=== PATIENT | female | born 1965 | race Caucasian/White ===

== ENCOUNTER 2020-10-07 19:29 | Observation (INO) | payer BC, MEDICARE, SELFPAY ==
[2020-10-07] VITALS (9 sets, daily range): BP systolic 110–131; BP diastolic 51–77; PULSE 96–111; RESP 16–21; TEMP 36.7; O2SAT 95–98; BMI 36.0
--- NOTE | 2020-10-07 19:37 | PC.NURSE ---
called [facility] for medical records from their ER on 10-06-2020 and 10-07-2020. awaiting for fax at this time.
--- NOTE | 2020-10-07 19:48 | XR_ITS ---
PROCEDURE: XR CHEST 2V CLINICAL HISTORY: SOB Shortness of breath COMPARISON: CR XR CHEST 2V from 01/18/2020 FINDINGS: The cardiomediastinal silhouette and pulmonary vascularity are within normal limits. The lungs are clear without infiltrates, suspicious nodules, or pleural effusions. Bone plate is present over lower cervical spine IMPRESSION: No acute findings. Dictated by: Shyam Mix MD 10/08/2020 05:55 Shyam Mix MD in [place] 10/08/2020 05:55
--- NOTE | 2020-10-07 19:48 | ECG_ITS ---
APPROVED REPORT Exam: Resting ECG HR:106 bpm ECG Measurements Heart Rate 106 AXES ME 128 P 76 QRSd 90 QRS 63 QT 356 T 48 QTc 472 Conclusion Sinus tachycardia Otherwise normal ECG Electronically signed by : Anjum Farooq, 10/09/2020 19:59:10
[2020-10-07 19:52] LABS: Microscopic, Urine URINE MICROSCOPIC (MICROSCOPIC)
[2020-10-07 19:55] LABS: Appearance,Urine CLEAR (Clear); Bilirubin,Urine Negative (Negative); Blood, Urine TRACE-I (Negative); Color,Urine YELLOW (Yellow); Glucose,Urine (UA) TRACE (Negative); Ketones,Urine Negative (Negative); Leukocyte Esterase,Urine Negative (Negative); Nitrate,Urine Negative (Negative); PH,Urine 5.5 (5.0-8.5); Protein,Urine Negative (Negative); Specific Gravity, Urine 1.015 (1.005-1.030); Urobilinogen,Urine 0.2 EU/dl (0.2)
[2020-10-07 19:55] LABS: ABG Base Excess -5.3 mmol/L (-2.4-2.3); ABG Oxygen Saturation 99 % (90-100); ABG PCO2 24.2 mmhg (35.0-45.0); ABG PH 7.49 mmol/L (7.35-7.45); ABG PO2 138.2 mmhg (80-100); ABG TCO2 18.8 mmhg (23-27)
[2020-10-07 20:22] LABS: Basophils % 0.1 % (0.1-2.0); Eosinophils % 0.1 % (0.1-12.0); Lymphocytes # 0.7 K/mm3 (0.7-4.5); Lymphocytes % 4.9 % (10-50); Mean Corpuscular HGB Conc 32.6 g/dL (31.8-35.4); Mean Corpuscular Hemoglobin 28.3 pg (27.0-31.2); Mean Corpuscular Volume 86.9 fl (81-99); Monocytes # 0.2 K/mm3 (0.1-1.0); Monocytes % 1.3 % (1.7-9.3); Neutrophils # 13.2 K/mm3 (1.8-7.8); Neutrophils % 93.6 % (37.0-80.0); Platelet Count 364 K/mm3 (142-424); Red Blood Count 4.95 M/mm3 (4.20-5.40); Red Cell Distribution Width 13.6 % (11.5-17.5); White Blood Count 14.1 K/mm3 (4.8-10.8)
[2020-10-07 20:26] LABS: Lactic Acid 4.6 mmol/L (0.7-2.1); MANUAL DIFFERENTIAL MANUAL DIFFERENTIAL (MANUAL DIFF)
[2020-10-07 20:33] LABS: Chloride 105 mmol/L (98-107); Sodium 141 mmol/L (136-145)
[2020-10-07 20:34] LABS: Potassium 3.7 mmoL/L (3.5-5.1)
[2020-10-07 20:36] LABS: Alanine Aminotransferase 62 U/L (12-78); Albumin Level 4.9 g/dl (3.5-5.0); Albumin/Globulin Ratio 1.2 (1.1-1.8); Alkaline Phosphatase 112 U/L (38-126); Anion Gap 18.7 mEq/L (5-15); Aspartate Amino Transferase 44 U/L (14-36); Bilirubin,Total 0.6 mg/dl (0.2-1.3); Blood Urea Nitrogen 10 mg/dl (7-17); Carbon Dioxide 21 mmol/L (22.0-30.0); Creatinine Clearance Estimated 163 mL/min (50-200); Estimated Glomerular Filt Rate 105 ml/min (>60); GFR (African American) 127 ML/MIN (>60); Total Protein,Serum 8.9 g/dl (6.3-8.2)
[2020-10-07 20:37] LABS: Calcium 9.9 mg/dl (8.4-10.2); Glucose 232 mg/dl (74-100)
[2020-10-07 20:48] LABS: Coronavirus 19 IgG Antibody Negative (Negative); Coronavirus 19 IgM Antibody Negative (Negative)
[2020-10-07 20:58] LABS: Troponin I < 0.01 ng/ml (0.00-0.034)
[2020-10-07 21:06] LABS: Lymphocytes % 7 % (10-50); Monocytes % 3 % (2-9); Neutrophils % 90 % (42-76); Platelet Estimate Normal; RBC Morphology Normal; Total Cells Counted 100
[2020-10-07 21:14] LABS: NT Pro Brain Natriuretic Pep. 70.6 pg/mL (0-125)
[2020-10-07 21:28] LABS: Allen's Test Acceptable; Oxygen ROOM AIR %; Source Left Radial
[2020-10-07 21:39] LABS: Procalcitonin 0.087 ng/mL (0.0-2.0)
--- NOTE | 2020-10-07 21:54 | HMH.EDSOB ---
ED Disposition Clinical Impression: Acute exacerbation of chronic obstructive airways disease, Severe sepsis with acute organ dysfunction, Septic shock, Obesity (BMI 30-39.9) Disposition: Admitted As Inpatient Condition on Discharge: Fair Referrals: Janes Mason [Primary Care Provider] - - Critical Care Critical Care Time: No Attestation: On 10/07/20, the high probability of a clinically significant, sudden or life threatening deterioration of the following system(s) required my full and direct attention, intervention and personal management. The time I documented below is in addition to time spent performing reported procedures but includes the following listed in this critical care notation. Medical Decision Making - Medical Records Medical records reviewed: Yes: I reviewed the patient's medical records. - [place] Inquiry Pt receiving controlled substance: No Vital Signs: 10/07/20 19:30 10/07/20 20:00 10/07/20 20:30 Temperature 98.0 F Temperature Source Oral Pulse Rate [Left Radial] 108 H 110 H 111 H Respiratory Rate 21 18 17 Blood Pressure [Right Arm] 131/51 L 127/77 130/61 Blood Pressure Mean [Right Arm] 77 93 84 Blood Pressure Source [Right Arm] Automatic Cuff Automatic Cuff Automatic Cuff Blood Pressure Position [Right Arm] Sitting Supine Supine 02 Sat by Pulse Oximetry 97 98 96 Oxygen Delivery Method Room Air Room Air Room Air Oxygen Flow Rate (LPM) 10/07/20 21:00 10/07/20 21:30 10/07/20 22:00 Temperature Temperature Source Pulse Rate [Left Radial] 109 H 99 H 101 H Respiratory Rate 17 17 17 Blood Pressure [Right Arm] 120/65 118/64 126/64 Blood Pressure Mean [Right Arm] 83 82 84 Blood Pressure Source [Right Arm] Automatic Cuff Automatic Cuff Automatic Cuff Blood Pressure Position [Right Arm] Supine Supine Supine 02 Sat by Pulse Oximetry 98 98 98 Oxygen Delivery Method Room Air Room Air Room Air Oxygen Flow Rate (LPM) 10/07/20 22:30 10/07/20 23:00 10/07/20 23:30 Temperature Temperature Source Pulse Rate [Left Radial] 97 H 96 H 98 H Respiratory Rate 16 17 17 Blood Pressure [Right Arm] 110/72 110/72 130/77 Blood Pressure Mean [Right Arm] 84 84 94 Blood Pressure Source [Right Arm] Automatic Cuff Automatic Cuff Automatic Cuff Blood Pressure Position [Right Arm] Sitting Supine Supine 02 Sat by Pulse Oximetry 95 98 98 Oxygen Delivery Method Room Air Nasal Cannula Nasal Cannula Oxygen Flow Rate (LPM) 2 2 10/08/20 00:00 10/08/20 00:30 Temperature Temperature Source Pulse Rate [Left Radial] 90 91 H Respiratory Rate 16 16 Blood Pressure [Right Arm] 125/80 134/70 Blood Pressure Mean [Right Arm] 95 91 Blood Pressure Source [Right Arm] Automatic Cuff Blood Pressure Position [Right Arm] Sitting 02 Sat by Pulse Oximetry 99 99 Oxygen Delivery Method Nasal Cannula Room Air Oxygen Flow Rate (LPM) 2 - Lab Data Lab results reviewed: Yes: I reviewed the patient's lab results. Lab Results 10/07/20 00:16: Troponin I < 0.01 10/07/20 19:38: WBC 14.1 H, RBC 4.95, Hgb 14.0, Hct 43.0, MCV 86.9, MCH 28.3, MCHC 32.6, RDW 13.6, Plt Count 364, MPV 8.0, Neut % (Auto) 93.6 H, Lymph % (Auto) 4.9 L, [place] % (Auto) 1.3 L, Eos % (Auto) 0.1, Baso % (Auto) 0.1, Neut # (Auto) 13.2 H, Lymph # (Auto) 0.7, [place] # (Auto) 0.2, Eos # (Auto) 0.0, Baso # (Auto) 0.0, Total Counted 100, Neutrophils % (Manual) 90 H, Lymphocytes % (Manual) 7 L, Monocytes % (Manual) 3, Platelet Estimate Normal, RBC Morphology Normal 10/07/20 19:38: Sodium 141, Potassium 3.7, Chloride 105, Carbon Dioxide 21 L, Anion Gap 18.7 H, BUN 10, Creatinine 0.60, Estimated Creat Clear 163, Estimated GFR 105, Est GFR ( Amer) 127, Glucose 232 H, Calcium 9.9, Total Bilirubin 0.6, AST 44 H, ALT 62, Alkaline Phosphatase 112, Troponin I < 0.01, Total Protein 8.9 H, Albumin 4.9, Globulin 4.0 H, Albumin/Globulin Ratio 1.2 10/07/20 19:38: Lactate 4.6 H 10/07/20 19:38: SARS-CoV-2 IgG Ab (Rapid) Negative, SARS-CoV-2 IgM Ab (Rapid) Negative
--- NOTE | 2020-10-07 21:58 | PC.NURSE ---
calling arley at this time to check on status of medical records at this time
--- NOTE | 2020-10-07 21:59 | CT_ITS ---
PROCEDURE: CT ANGIO CHEST CLINCIAL INDICATION: shortness of air Shortness of air, COPD COMPARISON: No exams were available for comparison TECHNIQUE: IV Contrast: 70ML Isovue 370 Axial images obtained with sagittal and coronal reformats. All CT scans at the facility use one or more dose reduction, viz: automated exposure control, ma/kV adjustment per patient size (including targeted exams where dose is matched to indication, i.e. head), or iterative reconstruction technique. FINDINGS: HEART AND MEDIASTINAL STRUCTURES: No mediastinal or hilar mass or adenopathy. No evidence of aortic aneurysm, dissection, or central pulmonary embolus. Peripheral pulmonary arteries are not well opacified. The LUNGS AND PLEURAL SPACES: There is some minimal subpleural opacification noted in the right upper lobe posteriorly along the major fissure. Calcified granuloma is present in the left upper lobe. BONY STRUCTURES: No acute finding UPPER ABDOMEN: Fatty liver. Small hiatal hernia. Prior cholecystectomy. ADDITIONAL FINDINGS: Right thyroid nodule. The thyroid gland is somewhat prominent on both sides. The nodule on the right measures up to 1.6 cm and may be better evaluated with ultrasound. IMPRESSION: 1. No evidence of pulmonary embolus 2. Fatty liver. Small hiatal hernia. 3. Possible right thyroid nodule which may be better evaluated with nonemergent ultrasound Dictated by: Shyam Mix MD 10/08/2020 07:36 Shyam Mix MD in [place] 10/08/2020 07:36
[2020-10-08] VITALS (12 sets, daily range): BP systolic 113–150; BP diastolic 55–84; PULSE 67–101; RESP 16–24; TEMP 36.4–36.7; O2SAT 96–100; BMI 36.4
[2020-10-08 00:15] LABS: Reflex Lactic Add Lactic Reflex
[2020-10-08 00:49] LABS: Lactic Acid Follow Up (RFLX 1) 2.6 mmol/L (0.7-2.1)
--- NOTE | 2020-10-08 00:54 | PC.NURSE ---
speaking with Dr. Webster
[2020-10-08 01:01] LABS: Troponin I < 0.01 ng/ml (0.00-0.034)
--- NOTE | 2020-10-08 01:02 | PC.NURSE ---
patient admitted to 206
[2020-10-08 02:35] LABS: Reflex Lactic (2 hrs) Add Lactic Reflex
--- NOTE | 2020-10-08 03:07 | PC.NURSE ---
PT ARRIVED TO THE FLOOR VIA W/C FROM ED W/STAFF AT 0306.
[2020-10-08 04:28] LABS: Hemoglobin A1C 5.7 % (4.0-6.0)
--- NOTE | 2020-10-08 07:44 | PC.NURSE ---
Pt is A&Ox4. Expiratory wheezing noted t/o all lung estrada. 2L NC applied for comfort, o2 sats in upper 90% all shift. Sputum collected this shift, results pending. No edema noted. 20 in RFA remains patent and is infusing NS @ 75 ml/hr. No other acute changes or complaints at this time. WIll continue to monitor.
[2020-10-08 08:12] LABS: Basophils % 0.1 % (0.1-2.0); Eosinophils % 0.2 % (0.1-12.0); Hematocrit 36.5 % (37.0-47.0); Lymphocytes # 0.9 K/mm3 (0.7-4.5); Lymphocytes % 5.5 % (10-50); Mean Corpuscular Volume 93.8 fl (81-99); Mean Platelet Volume 8.6 fl (7.4-10.4); Monocytes # 0.6 K/mm3 (0.1-1.0); Monocytes % 3.5 % (1.7-9.3); Neutrophils # 14.2 K/mm3 (1.8-7.8); Neutrophils % 90.6 % (37.0-80.0); Platelet Count 277 K/mm3 (142-424); Red Blood Count 3.89 M/mm3 (4.20-5.40); White Blood Count 15.7 K/mm3 (4.8-10.8)
[2020-10-08 08:13] LABS: Hemoglobin 11.3 g/dL (12.2-16.2); MANUAL DIFFERENTIAL MANUAL DIFFERENTIAL (MANUAL DIFF)
[2020-10-08 08:17] LABS: Chloride 108 mmol/L (98-107); Potassium 3.9 mmoL/L (3.5-5.1); Sodium 139 mmol/L (136-145)
[2020-10-08 08:20] LABS: Anion Gap 14.9 mEq/L (5-15); Blood Urea Nitrogen 9 mg/dl (7-17); Carbon Dioxide 20 mmol/L (22.0-30.0); Creatinine Clearance Estimated 165 mL/min (50-200); Estimated Glomerular Filt Rate 105 ml/min (>60); GFR (African American) 127 ML/MIN (>60); Glucose 184 mg/dl (74-100); Magnesium 1.7 mg/dl (1.6-2.3)
[2020-10-08 08:21] LABS: Calcium 8.8 mg/dl (8.4-10.2); Lactic Acid Follow up (RFLX 2) 3.8 mmol/L (0.7-2.1)
--- NOTE | 2020-10-08 09:10 | HMH.HP ---
*Admission Date: 10/08/20 *Chief complaint: SOA *History of present illness: Ms. Barr is a 55-year-old female with a history of asthma, COPD, and hyperlipidemia. She states she normally has no issues with her asthma unless she is out in the cold. She did have an exacerbation of her COPD in 2015 where she developed bilateral pneumonia. She states on she became very short of breath and presented to the [facility] emergency room. She states she was given a prescription for prednisone and sent home. She went home and did nebulizer treatments which did not help. She presented back to the emergency room on Saturday and states they did a portable x-ray and gave her a steroid shot. She was told the x-ray was normal and she was sent home again, but still could not breathe. She ended up calling an ambulance which transported her to [facility]. Her family care physician is Janes Mason and she does have a counter roller at [facility]. She was evaluated in the emergency room and her chest x-ray showed nothing acute. She had a CTA showing nothing acute. She was started on Rocephin and Zithromax as well as IV steroids and nebulizer treatments and admitted with a COPD exacerbation. Her white count was elevated as was her lactic acid. Her blood gas showed a pH of 7.49 a PCO2 of 24.2 and a PO2 of 138 to be serology was negative for Covid antibodies. She is feeling better this morning to get short of breath with any movement. [facility] History I have reviewed the patient's past medical history: Yes Medical History: Reports:: Asthma, Chronic Obstructive Pulmonary Disease (COPD), Hyperlipidemia Denies:: Cancer, Diabetes Mellitus Type 1, Diabetes Mellitus Type 2, MRSA *Have you ever received a pneumonia vaccine?: Yes *Have you received a flu vaccine this season?: No Other Medical History: Reports: Anemia, Arthritis, Fibromyalgia, Liver Disease, Sinus Problems Other Surgeries: Yes: Hysterectomy-Total Amputation: No - *Social History Last grade of school completed: Advanced degree Smoking Status: Never smoker Alcohol Intake: current Alcohol Intake Frequency:: holidays/special occasions only Substance Use Type: marijuana Last Used Substance: days (ago), unknown *Occupational Status:: retired Household Members: spouse *Travel in the last 8 weeks: None Family Hx:: Heart Attack, Hypertension, Mental illness Review of Systems - Constitutional Denies chills, Denies fever(s) - Eyes Denies blurry vision, Denies double vision - ENT Reports nasal congestion, Denies sore throat - *Cardiovascular Reports shortness of breath, Denies chest pain, Denies leg swelling - *Respiratory Reports cough, Reports shortness of breath - *Gastrointestinal Reports nausea, Denies abdominal pain, Denies loose stools, Denies vomiting - *Genitourinary Denies difficulty urinating, Denies painful urination - *Musculoskeletal Denies joint pain - *Neurologic Reports headache(s), Reports weakness, Denies localized weakness, Denies seizure-like activity Meds Home Medications Medication Instructions Recorded Confirmed Type Albuterol Sulfate [Proair Hfa 2 puffs IH Q4HP PRN #1 inh 01/18/20 10/07/20 Rx 90mcg/puff Inh] Budesonide/Formoterol Fumarate 2 puff IN DAILY 10/07/20 10/08/20 History [Symbicort 160-4.5 Mcg Inhaler] Hydrocodone/Acetaminophen 1 tab PO TID 10/07/20 10/08/20 History [Hydrocodone-Acetamin 7.5-325] Montelukast Sodium [Singulair 10mg 10 mg PO PM 10/07/20 10/08/20 History tablet] Pregabalin [Lyrica 100mg capsule] 100 mg PO TID 10/07/20 10/08/20 History Tiotropium [place] [Spiriva 2 cap IH DAILY 10/07/20 10/08/20 History 18mcg/puff inhaler] methocarbamoL [Robaxin 750mg Tab] 750 mg PO NEEDED PRN 10/07/20 10/08/20 History Allergies Allergy/AdvReac Type Severity Reaction Status Date / Time Penicillins Allergy Mild Verified 10/08/20 04:50 Exam Vital signs and Labs for Last 24 Hours: Temp Pu
--- NOTE | 2020-10-08 12:08 | HMH.PHAVTE ---
[facility] Pharmacy VTE Monitoring - Patient Demographics Admission date: 10/07/20 Report Date: 10/08/20 Time: 12:08 Allergies/Adverse Reactions: Patient Allergies Penicillins Allergy (Mild, Verified 10/08/20 04:50) Height: 1.63 m Weight: 96.247 kg Patient Problems: Current Active Problems Acute bronchitis, unspecified (Acute) Acute exacerbation of chronic obstructive airways disease (Acute) Severe sepsis with acute organ dysfunction (Acute) Septic shock (Acute) Obesity (BMI 30-39.9) (Acute) Asthma (Chronic) - VTE Risk Labs: VTE Related Lab Results Hgb 11.3 g/dL (12.2-16.2) L D 10/08/20 08:00 Hct 36.5 % (37.0-47.0) L 10/08/20 08:00 Plt Count 277 K/mm3 (142-424) 10/08/20 08:00 BUN 9 mg/dl (7-17) 10/08/20 08:00 Creatinine 0.60 mg/dl (0.52-1.04) 10/08/20 08:00 Estimated Creat Clear 165 mL/min (50-200) 10/08/20 08:00 VTE Score: 7 VTE Risk Level: Moderate Risk - Prophylaxis VTE Prophylaxis Ordered?: Yes Types of VTE Prophylaxis: TEDS Knee High Location of Applied Device: Bilateral Lower Extremeties
--- NOTE | 2020-10-08 12:16 | HMH.PHAINT ---
MEDICATION RECONCILIATION COMPLETED ON PATIENT USING EXTERNAL FILL HISTORY FROM PHARMACY. -BEBE KOHLI, URBANOD
[2020-10-08 15:11] LABS: Lymphocytes % 5 % (10-50); Monocytes % 1 % (2-9); Neutrophils % 93 % (42-76); Platelet Estimate Normal; RBC Morphology Normal; Total Cells Counted 100
--- NOTE | 2020-10-08 18:41 | PC.NURSE ---
pt has been stable this shift. Had 1 episode of expiratory wheezing earlier today that was relieved with Solumedrol IV. Has a productive cough. Had a BM today. Tolerating a reg diet.
[2020-10-09] VITALS (10 sets, daily range): BP systolic 113–135; BP diastolic 47–68; PULSE 60–87; RESP 16–18; TEMP 36.7–36.8; O2SAT 96–99; BMI 36.9
[2020-10-09 07:44] LABS: Basophils % 0.1 % (0.1-2.0); Eosinophils % 0.1 % (0.1-12.0); Hemoglobin 10.7 g/dL (12.2-16.2); Lymphocytes # 1.5 K/mm3 (0.7-4.5); Lymphocytes % 7.8 % (10-50); Mean Corpuscular HGB Conc 29.7 g/dL (31.8-35.4); Mean Corpuscular Hemoglobin 27.1 pg (27.0-31.2); Mean Corpuscular Volume 91.1 fl (81-99); Mean Platelet Volume 7.6 fl (7.4-10.4); Monocytes % 5.1 % (1.7-9.3); Neutrophils # 16.2 K/mm3 (1.8-7.8); Platelet Count 294 K/mm3 (142-424); Red Blood Count 3.95 M/mm3 (4.20-5.40); Red Cell Distribution Width 13.5 % (11.5-17.5); White Blood Count 18.6 K/mm3 (4.8-10.8)
[2020-10-09 07:45] LABS: Chloride 112 mmol/L (98-107); Potassium 3.8 mmoL/L (3.5-5.1); Sodium 142 mmol/L (136-145)
[2020-10-09 07:48] LABS: Anion Gap 10.8 mEq/L (5-15); Blood Urea Nitrogen 10 mg/dl (7-17); Carbon Dioxide 23 mmol/L (22.0-30.0); Creatinine Clearance Estimated 168 mL/min (50-200); Estimated Glomerular Filt Rate 105 ml/min (>60); GFR (African American) 127 ML/MIN (>60)
[2020-10-09 07:49] LABS: Calcium 8.9 mg/dl (8.4-10.2); Glucose 152 mg/dl (74-100); MANUAL DIFFERENTIAL MANUAL DIFFERENTIAL (MANUAL DIFF)
[2020-10-09 10:53] LABS: Lymphocytes % 13 % (10-50); Monocytes % 4 % (2-9); Neutrophils % 77 % (42-76); Platelet Estimate Normal; RBC Morphology Normal; Total Cells Counted 100
--- NOTE | 2020-10-09 12:09 | P.PN_ITS ---
Internal Medicine - PN: Subj *Date: 10/09/20 *Time: 12:09 Interval history: Clinically she looks good. She still feels short of breath and has cough and congestion and is productive of yellow sputum. The white count is still elevated but she is receiving steroids. Exam Vital signs and Labs for Last 24 Hours: Temp Pulse Resp BP Pulse Ox 98.2 F 70 17 135/68 99 10/09/20 08:00 10/09/20 08:00 10/09/20 08:00 10/09/20 08:00 10/09/20 08:00 Laboratory Results - last 24 hr 10/08/20 08:00: Total Counted 100, Neutrophils % (Manual) 93 H, Band Neutrophils % 1.0, Lymphocytes % (Manual) 5 L, Monocytes % (Manual) 1 L, Platelet Estimate Normal, RBC Morphology Normal 10/09/20 07:00: WBC 18.6 H, RBC 3.95 L, Hgb 10.7 L, Hct 36.0 L, MCV 91.1, MCH 27.1, MCHC 29.7 L, RDW 13.5, Plt Count 294, MPV 7.6, Neut % (Auto) 87.0 H, Lymph % (Auto) 7.8 L, [place] % (Auto) 5.1, Eos % (Auto) 0.1, Baso % (Auto) 0.1, Neut # (Auto) 16.2 H, Lymph # (Auto) 1.5, [place] # (Auto) 1.0, Eos # (Auto) 0.0, Baso # (Auto) 0.0, Total Counted 100, Neutrophils % (Manual) 77 H, Band Neutrophils % 6.0, Lymphocytes % (Manual) 13, Monocytes % (Manual) 4, Platelet Estimate Normal, RBC Morphology Normal 10/09/20 07:00: Sodium 142, Potassium 3.8, Chloride 112 H, Carbon Dioxide 23, Anion Gap 10.8, BUN 10, Creatinine 0.60, Estimated Creat Clear 168, Estimated GFR 105, Est GFR ( Amer) 127, Glucose 152 H, Calcium 8.9 I & O for Last 24 hours: Intake & Output 10/07/20 10/08/20 10/09/20 10/10/20 11:59 11:59 11:59 11:59 Intake Total 3389 / 3389 480 / 480 Balance 3389 / 3389 480 / 480 Weight 212 lb 3 oz 216 lb 8 oz - Constitutional no acute distress - *Routine HEENT Exam Eye: Present: PERRL ENT: Present: mucous membranes moist - *Routine Respiratory Exam Present: decreased breath sounds, wheezes - *Routine Cardiovascular Exam Present: RRR - *Routine Abdominal Exam Present: soft. Absent: tenderness - *Routine Extremities Exam Present: edema (Trace) - *Routine Neurological Exam Present: alert, oriented X3 Assessment and Plan (1) Acute exacerbation of chronic obstructive airways disease Status: Acute Category: Medical Code(s): J44.1 - Chronic obstructive pulmonary disease with (acute) exacerbation (2) Obesity (BMI 30-39.9) Status: Acute Category: Medical Code(s): E66.9 - Obesity, unspecified (3) Septic shock Status: Acute Category: Medical Code(s): A41.9 - Sepsis, unspecified organism; R65.21 - Severe sepsis with septic shock (4) Acute bronchitis, unspecified Status: Acute Qualifiers: Bronchitis organism: unspecified organism Qualified Code(s): J20.9 - Acute bronchitis, unspecified Category: Medical Code(s): J20.9 - Acute bronchitis, unspecified (5) Asthma Status: Chronic Category: Medical Code(s): J45.909 - Unspecified asthma, uncomplicated - Assessment and plan all Dx Assessment and Plan for all problems:: Continue present regimen. Pulmonary consult ordered.
--- NOTE | 2020-10-09 18:25 | PC.NURSE ---
THIS RN RECEIVED A PHONE CALL FROM LAB INQUIRING ABOUT AN ORDER FOR A SPUTUM. THIS RN INFORMED THEM THAT THERE IS AN ORDER THAT WAS PLACED ON 11/08/2019. PER LAB, ORDER WAS NOT RECEIVED. PER ESTER IN LAB, SHE WILL PUT ORDER IN.
--- NOTE | 2020-10-09 20:32 | PC.NURSE ---
PATIENT A&O X4, LUNGS: WHEEZING HEARD, PULSES EQUAL. DURING THIS RN SHIFT PATIENT HAD 2 EPISODES OF FEELING OUT OF BREATH. THIS RN ASSESSED O2 STATS, O2 WAS 97% 2L NC. PATIENT STATED SHE THINKS IT IS TIME FOR HER STEROIDS, SHE CAN TELL. THIS RN ADMINISTERED HER SOLU-MEDROL AND PHONED RT FOR A BREATHING TREATMENT. NO OTHER CONCERNS AT THIS TIME.
[2020-10-10] VITALS (10 sets, daily range): BP systolic 134–150; BP diastolic 62–80; PULSE 60–79; RESP 16–22; TEMP 36.6–36.7; O2SAT 94–98; BMI 37.3
--- NOTE | 2020-10-10 03:46 | PC.NURSE ---
Fine crackles noted t/o bilat lungs with inspiratory wheezes to r lobe. Intermittent productive cough reported with thick, white sputum. Pt. has c/o neck pain x2 this shift; tx with prn meds. Pt. c/o one episode of soa. Pt. has not c/o n/v/d, or dizziness.
--- NOTE | 2020-10-10 08:59 | HMH.ACPN2 ---
Internal Medicine - PN: Subj *Date: 10/10/20 *Time: 08:59 Interval history: Patient states she is a little short of breath this morning. She did set up in a chair for breakfast this morning without her O2. She had a neb treatment which helped. Denies chest pain. She is eating without problems. Blood cultures are negative thus far. Sputum culture results are pending. He is on Zithromax and ceftriaxone. She is also receiving Solu-Medrol 40 IV every 8 hours. We fluids her at 75 an hour. Exam Vital signs and Labs for Last 24 Hours: Temp Pulse Resp BP Pulse Ox 98.0 F 79 20 142/67 H 95 10/10/20 08:00 10/10/20 08:00 10/10/20 08:00 10/10/20 08:00 10/10/20 08:00 Laboratory Results - last 24 hr 10/09/20 07:00: Total Counted 100, Neutrophils % (Manual) 77 H, Band Neutrophils % 6.0, Lymphocytes % (Manual) 13, Monocytes % (Manual) 4, Platelet Estimate Normal, RBC Morphology Normal I & O for Last 24 hours: Intake & Output 10/07/20 10/08/20 10/09/20 10/10/20 11:59 11:59 11:59 11:59 Intake Total 3389 / 3389 480 / 480 3956 / 3956 Balance 3389 / 3389 480 / 480 3956 / 3956 Weight 212 lb 3 oz 216 lb 8 oz 218 lb 9 oz Microbiology Reports for the Last 24 Hours: Microbiology 10/09/20 06:00 Sputum - Expectorated Sputum Gram Stain - Final 10/07/20 19:38 Blood Blood Culture - Preliminary NO GROWTH AFTER 48 HOURS 10/07/20 19:38 Blood Blood Culture - Preliminary NO GROWTH AFTER 48 HOURS - Constitutional no acute distress - *Routine Respiratory Exam Comments: Bibasilar crackles posteriorly with diminished breath sounds posteriorly - *Routine Cardiovascular Exam Present: RRR - *Routine Abdominal Exam Present: soft, normoactive bowel sounds. Absent: tenderness - *Routine Extremities Exam Present: edema (Bilateral lower legs), pulses intact. Absent: calf tenderness - *Routine Neurological Exam Present: alert, oriented X3 Assessment and Plan (1) Acute exacerbation of chronic obstructive airways disease Status: Acute Category: Medical Code(s): J44.1 - Chronic obstructive pulmonary disease with (acute) exacerbation (2) Obesity (BMI 30-39.9) Status: Acute Category: Medical Code(s): E66.9 - Obesity, unspecified (3) Septic shock Status: Acute Category: Medical Code(s): A41.9 - Sepsis, unspecified organism; R65.21 - Severe sepsis with septic shock (4) Acute bronchitis, unspecified Status: Acute Qualifiers: Bronchitis organism: unspecified organism Qualified Code(s): J20.9 - Acute bronchitis, unspecified Category: Medical Code(s): J20.9 - Acute bronchitis, unspecified (5) Asthma Status: Chronic Category: Medical Code(s): J45.909 - Unspecified asthma, uncomplicated - Assessment and plan all Dx Assessment and Plan for all problems:: Will saline lock IV. Will repeat chest x-ray. Continue with Zithromax and Rocephin antibiotics.
--- NOTE | 2020-10-10 09:02 | XR_ITS ---
PROCEDURE: XR CHEST 2V CLINICAL HISTORY: COPD exacerbation COMPARISON: CR XR CHEST 2V from 01/18/2020 CR XR CHEST 2V from 10/07/[address] ANGIO CHEST from 10/07/2020 FINDINGS: The cardiomediastinal silhouette and pulmonary vascularity are within normal limits. There is focal area of increased density in the lung base posteriorly as seen on the lateral view and may be due to an area of atelectasis not readily apparent on the previous chest CT. Patchy infiltrate is also consideration. There is a faint opacity overlying the right mid to lower lung zone laterally and may be due to summation artifact. Recent CT scan did not demonstrate any suspicious nodule in this area. There is a bone plate present over lower cervical spine. IMPRESSION: Increased density in the posterior costophrenic sulcus as seen on the lateral view which may be due to an area of atelectasis or patchy infiltrate Dictated by: Shyam Mix MD 10/10/2020 09:57 Shyam Mix MD in [place] 10/10/2020 09:57
[2020-10-11] VITALS (7 sets, daily range): BP systolic 121–153; BP diastolic 48–74; PULSE 58–94; RESP 20; TEMP 35.9–36.9; O2SAT 91–98; BMI 37.9
--- NOTE | 2020-10-11 02:49 | PC.NURSE ---
A&OX4. PT HAS TOLERATED 2L NC WELL THROUGHOUT SHIFT. RESPIRATIONS REGULAR AND UNLABORED. INSPIRATORY WHEEZES NOTED THROUGHOUT. NO COUGH NOTED. ACTIVE BOWEL SOUNDS HEARD IN ALL 4 QUADRANTS. SOFT AND NONTENDER ABDOMEN. NO BM REPORTED. PT TAKES HERSELF TO THE RESTROOM AND MOVES INDEPENDENTLY IN BED. PT HAS SLEPT MOST OF THE NIGHT. NO REPORTS OF PAIN OR SOB. 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 +2 PULSES NOTED THROUGHOUT. INCENTIVE SPIROMETER ENCOURAGED 10 JOSE ALFREDO EVERY HOUR WHILE AWAKE. PT IS CURRENTLY SLEEPING. CALL LIGHT WITHIN REACH. BED IN LOWEST POSITION. VSS. WILL CONTINUE TO MONITOR.
[2020-10-11 07:27] LABS: Chloride 103 mmol/L (98-107); Potassium 4.2 mmoL/L (3.5-5.1); Sodium 139 mmol/L (136-145)
[2020-10-11 07:30] LABS: Anion Gap 10.2 mEq/L (5-15); Blood Urea Nitrogen 14 mg/dl (7-17); Calcium 8.9 mg/dl (8.4-10.2); Carbon Dioxide 30 mmol/L (22.0-30.0); Creatinine Clearance Estimated 172 mL/min (50-200); Estimated Glomerular Filt Rate 105 ml/min (>60); GFR (African American) 127 ML/MIN (>60); Glucose 161 mg/dl (74-100)
[2020-10-11 07:31] LABS: Basophils % 0.2 % (0.1-2.0); Eosinophils % 0.2 % (0.1-12.0); Hematocrit 38.3 % (37.0-47.0); Hemoglobin 12.2 g/dL (12.2-16.2); Lymphocytes # 1.6 K/mm3 (0.7-4.5); Lymphocytes % 10.5 % (10-50); Mean Corpuscular Hemoglobin 28.4 pg (27.0-31.2); Mean Corpuscular Volume 88.8 fl (81-99); Mean Platelet Volume 8.3 fl (7.4-10.4); Monocytes # 0.8 K/mm3 (0.1-1.0); Neutrophils # 12.6 K/mm3 (1.8-7.8); Neutrophils % 84.1 % (37.0-80.0); Platelet Count 295 K/mm3 (142-424); Red Blood Count 4.31 M/mm3 (4.20-5.40); Red Cell Distribution Width 13.8 % (11.5-17.5)
[2020-10-11 07:34] LABS: MANUAL DIFFERENTIAL MANUAL DIFFERENTIAL (MANUAL DIFF)
--- NOTE | 2020-10-11 08:28 | HMH.ACPN2 ---
Internal Medicine - PN: Subj *Date: 10/11/20 *Time: 08:35 Interval history: Patient continues to be short of breath at times. She continues with cough after treatments especially. Sometimes it is productive. She denies chest pain. She has been up in the room and sits in a chair. She is voiding QS. P.o. fluid intake is good. She feels the percussion does help. She does complain of some gas. Bowels did move yesterday. Weight gain is noted.Repeat. Chest x-ray yesterday showed increased density in the posterior costophrenic sulcus which may be due to an area of atelectasis or patchy infiltrate. CBC has decreased to 15,000. Blood chemistries are normal. Final sputum culture is pending. Exam Vital signs and Labs for Last 24 Hours: Temp Pulse Resp BP Pulse Ox 98.2 F 60 20 153/74 H 98 10/11/20 04:41 10/11/20 06:07 10/11/20 04:41 10/11/20 04:41 10/11/20 06:07 Laboratory Results - last 24 hr 10/11/20 06:37: WBC 15.0 H, RBC 4.31, Hgb 12.2, Hct 38.3, MCV 88.8, MCH 28.4, MCHC 32.0, RDW 13.8, Plt Count 295, MPV 8.3, Neut % (Auto) 84.1 H, Lymph % (Auto) 10.5, [place] % (Auto) 5.0, Eos % (Auto) 0.2, Baso % (Auto) 0.2, Neut # (Auto) 12.6 H, Lymph # (Auto) 1.6, [place] # (Auto) 0.8, Eos # (Auto) 0.0, Baso # (Auto) 0.0 10/11/20 06:37: Sodium 139, Potassium 4.2, Chloride 103, Carbon Dioxide 30 D, Anion Gap 10.2, BUN 14 D, Creatinine 0.60, Estimated Creat Clear 172, Estimated GFR 105, Est GFR ( Amer) 127, Glucose 161 H, Calcium 8.9 I & O for Last 24 hours: Intake & Output 10/08/20 10/09/20 10/10/20 10/11/20 11:59 11:59 11:59 11:59 Intake Total 3389 / 3389 480 / 480 4196 / 4196 480 / 480 Balance 3389 / 3389 480 / 480 4196 / 4196 480 / 480 Weight 212 lb 3 oz 216 lb 8 oz 218 lb 9 oz 222 lb 1 oz Microbiology Reports for the Last 24 Hours: Microbiology 10/09/20 06:00 Sputum - Expectorated Sputum Gram Stain - Final 10/09/20 06:00 Sputum - Expectorated Sputum Sputum Culture - Preliminary - Constitutional no acute distress Comments: Sitting up in chair at bedside. O2 sats are 96% on room air. - *Routine Respiratory Exam Present: wheezes (Faint scattered expiratory wheezing. She does have crackles in bilateral bases posteriorly.) - *Routine Cardiovascular Exam Present: RRR - *Routine Abdominal Exam Present: soft, normoactive bowel sounds. Absent: tenderness, distended - *Routine Extremities Exam Absent: edema, calf tenderness - *Routine Neurological Exam Present: alert, oriented X3 Assessment and Plan (1) Acute exacerbation of chronic obstructive airways disease Status: Acute Category: Medical Code(s): J44.1 - Chronic obstructive pulmonary disease with (acute) exacerbation (2) Obesity (BMI 30-39.9) Status: Acute Category: Medical Code(s): E66.9 - Obesity, unspecified (3) Septic shock Status: Acute Category: Medical Code(s): A41.9 - Sepsis, unspecified organism; R65.21 - Severe sepsis with septic shock (4) Acute bronchitis, unspecified Status: Acute Qualifiers: Bronchitis organism: unspecified organism Qualified Code(s): J20.9 - Acute bronchitis, unspecified Category: Medical Code(s): J20.9 - Acute bronchitis, unspecified (5) Asthma Status: Chronic Category: Medical Code(s): J45.909 - Unspecified asthma, uncomplicated - Assessment and plan all Dx Assessment and Plan for all problems:: Continue with current pulmonary care to include percussion.
[2020-10-11 08:30] LABS: Lymphocytes % 14 % (10-50); Monocytes % 5 % (2-9); Neutrophils % 79 % (42-76); Platelet Estimate Normal; RBC Morphology Normal; Total Cells Counted 100
--- NOTE | 2020-10-11 09:44 | CA_ITS ---
APPROVED REPORT EXAM: Comprehensive 2D, Doppler, and color-flow Echocardiogram Integrated Marketing Intern: Raeann Santillan CRT Ht: 5 ft 4 in Wt: 222lbs BSA: 2.05 BP: 153/74 mmHg Indications: COPD, Shortness of Breath, Obesity, asthma, 2D Dimensions LVOT 1.73 cm (M/F) 1.5-2.5 M-Mode Dimensions RVDd 2.68 cm (0.9-2.6) LA Diam 3.37 cm (1.9-4.0) LVDd 4.10 cm (3.5-5.7) Ao Diam 3.17 cm (2.0-3.7) LVDs 2.71 cm (3.5-5.7) IVSd 1.61 cm (0.6-1.1) PWd 0.75 cm (0.6-1.1) EF (Teich) 63.20% FS 33.90% EDV (Teich) 74.20 mL ESV (Teich) 27.30 mL LV Diastology MED E' 6.20 (< 7 cm/sec) LAT E' 5.80 (<10 cm/sec) Aortic Valve AO Peak GR. 9.90 mmHg Mitral Valve MV A Velocity 69.00 (40-130 cm/s) Pulmonary Valve PV Peak Velocity 74.00 (50-150 cm/s) Tricuspid Valve TR P. Velocity 188.00 cm/s RAP Estimate 10.00 mmHg RVSP 24.10 mmHg Left Ventricle Left atrium is mildly enlarged, left ventricle is normal size, there is no concentric left ventricular hypertrophy, visually estimated ejection fraction 55% with no regional wall motion abnormality, diastolic parameters are inconclusive. Right Ventricle Right atrium and right ventricle mildly enlarged with normal contractility. Aortic Valve Aortic valve is minimally thickened and fibrosed, there is no aortic stenosis or aortic insufficiency. Mitral Valve Mitral valve is grossly normal, there is trace mitral regurgitation. Tricuspid Valve Tricuspid valve grossly normal, there is trace tricuspid regurgitation, tricuspid regurgitation jet velocity is inadequate for calculation of the right ventricular systolic pressure. Pulmonic Valve Pulmonic valve is poorly visualized. Great Vessels Aortic root is normal size. Pericardium No significant pericardial effusion noted. Conclusion 1. Normal left ventricular size, preserved left ventricular systolic function, visually estimated ejection fraction 55% with no regional wall motion abnormality, diastolic parameters are inconclusive. 2. Mildly enlarged right atrium and right ventricle, contractility of the right ventricle is normal. 3. Trace mitral and tricuspid regurgitation. 4. No significant pericardial effusion noted. Electronically signed by : Naeem Ledesma, 10/12/2020 05:52:58
--- NOTE | 2020-10-11 10:39 | HMH.CNCARD ---
History of Present Illness Consult date: 10/11/20 Requesting physician: Terrence Webster Chief complaint: shortness of breath Additional Medical History:: 1. Dyspnea (10/11/2020) 2. Pneumonia (10/11/2020) 3. Asthma a Pt is treated by Computer Network Support Specialist in [place] 4. Palpitations 5. Hyperlipidemia a. Pt is on statin therapy. 6. Enlarged heart a. Seen via Delivery Driver in [facility]. 7. Stage 2 COPD a. Pt is treated via Computer Network Support Specialist in [facility]. History of present illness: 55-year-old female presented to the emergency room on 10/07/2020 with increased shortness of breath. Patient states for the last few days prior to arrival to the ER she had been having increased shortness of breath with exertion. Patient stated she was seen at [facility] x2 visits for the same complaint and was given prescription for prednisone. Patient states she has history of stage II COPD and asthma. Since her admission here, she has been diagnosed with pneumonia and COPD. First chest x-ray revealed no acute findings. Second CXR revealed: Increased density in the posterior costophrenic sulcus as seen on the lateral view which may be due to an area of atelectasis or patchy infiltrate Patient is currently being treated with antibiotic therapy. Patient continues to complain of shortness of breath. Patient is tolerating oxygen at 2 L by nasal cannula. Patient complains of palpitations especially with the shortness of breath. Patient does have edema of the lower extremities. Patient stated that this is not new nor are they worse than normal. Patient states she just feels like she cannot move air in her lungs especially when she is setting up. Patient did say that she has been using her rescue inhaler in the last few weeks more than what she normally does. Patient denies chest pain tightness or pressure. Patient does see Regularly in [facility]. Last catheterization was around 5 years ago. Patient said she was told she has an enlarged heart. She has no previous stenting to the coronary arteries. Last appointment with boiler or engine operator was this summer she states, and all was fine. Upon admission to the hospital EKG was performed patient was noted to have sinus tachycardia with a heart rate of 103 bpm. Patient states her heart does race when she is taking the rescue inhalers. Patient has significant family history mother had OH and at the age of 41. Discussed case with Dr. Acosta. Recommended echocardiogram today to assess for LV function and valve status. Recommend Lasix 40 mg IV push to decrease edema and improve the shortness of breath, which could be possibly due to congestive heart failure. Thank you for letting cardiology participate in the care of this patient. [facility] History I have reviewed the patient's past medical history: Yes Medical History: Reports:: Asthma, Chronic Obstructive Pulmonary Disease (COPD), Hyperlipidemia Denies:: Cancer, Diabetes Mellitus Type 1, Diabetes Mellitus Type 2, MRSA *Have you ever received a pneumonia vaccine?: Yes *Have you received a flu vaccine this season?: No Other Medical History: Reports: Anemia, Arthritis, Fibromyalgia, Liver Disease, Sinus Problems Other Surgeries: Yes: Hysterectomy-Total Amputation: No - *Social History Last grade of school completed: Advanced degree Smoking Status: Never smoker Alcohol Intake: current Alcohol Intake Frequency:: holidays/special occasions only Substance Use Type: marijuana Last Used Substance: days (ago), unknown *Occupational Status:: retired Household Members: spouse *Travel in the last 8 weeks: None Family Hx:: Heart Attack, Hypertension, Mental illness Meds Home Medications Medication Instructions Recorded Confirmed Type Budesonide/Formoterol Fumarate 2 puff IH DAILY 10/07/20 10/10/20 History [Symbicort 160-4.5 Mcg Inhaler] Hydrocodone/Acetaminophen 1 tab PO TID 10/07/20 10/08/20 Hi
--- NOTE | 2020-10-11 14:05 | HMH.ACPN ---
Internal Medicine - PN: Subj *Date: 10/11/20 *Time: 14:05 Exam Vital signs and Labs for Last 24 Hours: Temp Pulse Resp BP Pulse Ox 98.0 F 80 20 129/63 95 10/11/20 08:00 10/11/20 08:00 10/11/20 08:00 10/11/20 08:00 10/11/20 08:00 Laboratory Results - last 24 hr 10/11/20 06:37: WBC 15.0 H, RBC 4.31, Hgb 12.2, Hct 38.3, MCV 88.8, MCH 28.4, MCHC 32.0, RDW 13.8, Plt Count 295, MPV 8.3, Neut % (Auto) 84.1 H, Lymph % (Auto) 10.5, [place] % (Auto) 5.0, Eos % (Auto) 0.2, Baso % (Auto) 0.2, Neut # (Auto) 12.6 H, Lymph # (Auto) 1.6, [place] # (Auto) 0.8, Eos # (Auto) 0.0, Baso # (Auto) 0.0, Total Counted 100, Neutrophils % (Manual) 79 H, Band Neutrophils % 2.0, Lymphocytes % (Manual) 14, Monocytes % (Manual) 5, Platelet Estimate Normal, RBC Morphology Normal 10/11/20 06:37: Sodium 139, Potassium 4.2, Chloride 103, Carbon Dioxide 30 D, Anion Gap 10.2, BUN 14 D, Creatinine 0.60, Estimated Creat Clear 172, Estimated GFR 105, Est GFR ( Amer) 127, Glucose 161 H, Calcium 8.9 I & O for Last 24 hours: Intake & Output 10/08/20 10/09/20 10/10/20 10/11/20 23:59 23:59 23:59 23:59 Intake Total 3629 / 3629 1080 / 1080 3836 / 3836 Balance 3629 / 3629 1080 / 1080 3836 / 3836 Weight 96.247 kg 98.203 kg 99 kg 100.726 kg Microbiology Reports for the Last 24 Hours: Microbiology 10/09/20 06:00 Sputum - Expectorated Sputum Gram Stain - Final 10/09/20 06:00 Sputum - Expectorated Sputum Sputum Culture - Preliminary Assessment and Plan (1) Acute exacerbation of chronic obstructive airways disease Status: Acute Category: Medical Code(s): J44.1 - Chronic obstructive pulmonary disease with (acute) exacerbation (2) Obesity (BMI 30-39.9) Status: Acute Category: Medical Code(s): E66.9 - Obesity, unspecified (3) Septic shock Status: Acute Category: Medical Code(s): A41.9 - Sepsis, unspecified organism; R65.21 - Severe sepsis with septic shock (4) Acute bronchitis, unspecified Status: Acute Qualifiers: Bronchitis organism: unspecified organism Qualified Code(s): J20.9 - Acute bronchitis, unspecified Category: Medical Code(s): J20.9 - Acute bronchitis, unspecified (5) Asthma Status: Chronic Category: Medical Code(s): J45.909 - Unspecified asthma, uncomplicated The patient's infection will respond to the chosen ABx?: Yes Is the patient receiving the right drug, dose, and route?: Yes Could a more targeted ABx be ordered?: No (AWAITING SPUTUM CULTURE)
--- NOTE | 2020-10-11 18:49 | PC.NURSE ---
Patient is a/o x4. Patient remains on 2LNC for comfort measures. Patient has auditory wheezing and crackles in the base of the lungs. Patient has no complaints. she was prescribed a one time dose of lasix 40mg today and had an output of 2000. Patient continues to refuse any VTE protocol. Education given to patient. Patient continues on a regular diet and has adequate intake. Patient has no edema. Patient was very pleasant on this shift. Will continue to monitor.
[2020-10-12] VITALS (8 sets, daily range): BP systolic 122–154; BP diastolic 56–76; PULSE 58–74; RESP 18–20; TEMP 36.7–36.8; O2SAT 94–98; BMI 37.5
--- NOTE | 2020-10-12 04:29 | PC.NURSE ---
A&OX4. PT HAS TOLERATED 2L NC WELL THROUGHOUT SHIFT. PT HAS TAKEN O2 ON AND OFF THROUGHOUT SHIFT. PT'S O2 HAS BEEN WNL ON RA. RESPIRATIONS REGULAR AND UNLABORED. FINE CRACKLES NOTED TO BILATERAL BASES. HAND RECREATIONAL COUNSELOR EQUAL. +2 PULSES NOTED THROUGHOUT. ACTIVE BOWEL SOUNDS HEARD IN ALL 4 QUADRANTS. SOFT AND NONTENDER ABDOMEN. NO BM REPORTED. PT VOIDS PER BATHROOM INDEPENDENTLY. BRIGHT YELLOW URINE NOTED IN MEASURING HAT. NO EDEMA NOTED. SKIN CDI. PT HAS REPORTED PAIN IN HER NECK TWICE THUS FAR AND HAS RECEIVED NORCO. ON REASSESSMENT, PT STATED PAIN WAS TOLERABLE. PT IS CURRENTLY LYING IN BED SLEEPING. BED IN LOWEST POSITION. CALL LIGHT WITHIN REACH. VSS. WILL CONTINUE TO MONITOR. IV HAD TO BE CHANGED THIS SHIFT DUE TO TENDERNESS. NEW IV STARTED IN L HAND. PT RECEIVED 2 ANTIBIOTICS THIS SHIFT AND TOLERATED WELL.
--- NOTE | 2020-10-12 08:23 | HMH.ACPN2 ---
Internal Medicine - PN: Subj *Date: 10/12/20 *Time: 08:29 Interval history: Patient still complains of shortness of air at rest and with any movement. She says she cannot sleep because if she lays down it is difficult to breathe. She does think the Lasix may have helped slightly. She was able to eat some breakfast this morning. Exam Vital signs and Labs for Last 24 Hours: Temp Pulse Resp BP Pulse Ox 98.1 F 60 18 154/76 H 97 10/12/20 04:00 10/12/20 06:03 10/12/20 04:00 10/12/20 04:00 10/12/20 06:03 Laboratory Results - last 24 hr 10/11/20 06:37: Total Counted 100, Neutrophils % (Manual) 79 H, Band Neutrophils % 2.0, Lymphocytes % (Manual) 14, Monocytes % (Manual) 5, Platelet Estimate Normal, RBC Morphology Normal I & O for Last 24 hours: Intake & Output 10/09/20 10/10/20 10/11/20 10/12/20 11:59 11:59 11:59 11:59 Intake Total 480 / 480 4196 / 4196 480 / 480 1540 / 1540 Output Total 1480 / 1480 Balance 480 / 480 4196 / 4196 480 / 480 60 / 60 Weight 216 lb 8 oz 218 lb 9 oz 222 lb 1 oz 220 lb 2 oz Microbiology Reports for the Last 24 Hours: Microbiology 10/09/20 06:00 Sputum - Expectorated Sputum Gram Stain - Final 10/09/20 06:00 Sputum - Expectorated Sputum Sputum Culture - Preliminary - Constitutional no acute distress - *Routine Respiratory Exam Present: decreased breath sounds, wheezes (bilaterally) - *Routine Cardiovascular Exam Present: RRR - *Routine Abdominal Exam Present: soft, normoactive bowel sounds. Absent: tenderness - *Routine Extremities Exam Absent: cyanosis, clubbing, edema - *Routine Skin Exam Present: warm. Absent: rash - *Routine Neurological Exam Present: alert, oriented X3 Assessment and Plan (1) Acute exacerbation of chronic obstructive airways disease Status: Acute Category: Medical Code(s): J44.1 - Chronic obstructive pulmonary disease with (acute) exacerbation (2) Obesity (BMI 30-39.9) Status: Acute Category: Medical Code(s): E66.9 - Obesity, unspecified (3) Septic shock Status: Acute Category: Medical Code(s): A41.9 - Sepsis, unspecified organism; R65.21 - Severe sepsis with septic shock (4) Acute bronchitis, unspecified Status: Acute Qualifiers: Bronchitis organism: unspecified organism Qualified Code(s): J20.9 - Acute bronchitis, unspecified Category: Medical Code(s): J20.9 - Acute bronchitis, unspecified (5) Asthma Status: Chronic Category: Medical Code(s): J45.909 - Unspecified asthma, uncomplicated - Assessment and plan all Dx Assessment and Plan for all problems:: Patient's echo is relatively normal. She had minimal response to the Lasix. She is not improving. We will get a respiratory panel that includes a Covid test.
[2020-10-12 09:35] LABS: Adenovirus,PCR Not Detected (NotDetected); Bordetella Pertussis Not Detected (NotDetected); Chlamydophila Pneumoniae, PCR Not Detected (NotDetected); Coronavirus 19, PCR Not Detected (NotDetected); Coronavirus 229E Not Detected (NotDetected); Coronavirus NL63 Not Detected (NotDetected); Coronavirus OC43 Not Detected (NotDetected); Coronovirus HKU1,PCR Not Detected (NotDetected); Human Metapneumovirus Not Detected (NotDetected); Influenza A, PCR Not Detected (NotDetected); Influenza AH1, 2009 Not Detected (NotDetected); Influenza AH1, PCR Not Detected (NotDetected); Influenza AH3,PCR Not Detected (NotDetected); Influenza B, PCR Not Detected (NotDetected); Mycoplasma Pneumoniae, PCR Not Detected (NotDetected); Parainfluenza 1, PCR Not Detected (NotDetected); Parainfluenza 2, PCR Not Detected (NotDetected); Parainfluenza 3, PCR Not Detected (NotDetected); Parainfluenza 4, PCR Not Detected (NotDetected); Respiratory Syncytial Virus Not Detected (NotDetected)
[2020-10-12 09:54] LABS: ABG Base Excess 1.1 mmol/L (-2.4-2.3); ABG Oxygen Saturation 97 % (90-100); ABG PCO2 36.6 mmhg (35.0-45.0); ABG PH 7.45 mmol/L (7.35-7.45); ABG PO2 84.9 mmhg (80-100); ABG TCO2 26.2 mmhg (23-27)
[2020-10-12 09:59] LABS: Allen's Test Acceptable; Source Right Radial
[2020-10-12 12:18] LABS: Rhinovirus/Enterovirus Detected (NotDetected)
--- NOTE | 2020-10-12 13:13 | CT_ITS ---
PROCEDURE: CT SOFT TISSUE NECK WO CON CLINICAL HISTORY: shortness of breath Difficulty swallowing with shortness of air COMPARISON: No exams were available for comparison TECHNIQUE: Oral Contrast: None IV Contrast: None Axial images obtained with sagittal and coronal reformats. All CT scans at the facility use one or more dose reduction, viz: automated exposure control, ma/kV adjustment per patient size (including targeted exams where dose is matched to indication, i.e. head), or iterative reconstruction technique. FINDINGS: Small air-fluid levels are present in the maxillary sinuses with mild mucosal thickening of the left maxillary sinus and ethmoid sinuses as well as minimal mucosal thickening of the sphenoid sinuses. Minimal amount of fluid is present in the mastoid sinus on the left. The epiglottis and glottic region have an unremarkable appearance. Thyroid gland is slightly enlarged on both sides with some minimal narrowing of the trachea. No subglottic narrowing is evident. There are scattered small cervical nodes in the neck. No dominant adenopathy or abnormal fluid collections. Upper thoracic images show no acute finding. There has been prior anterior cervical disc fusion at C5-C6 and C7. There is degenerative disc disease at C3-C4 C4-C5 and C7-T1. IMPRESSION: 1. Paranasal sinus disease. 2. Mildly enlarged thyroid gland with mild narrowing of the trachea. Dictated by: Shyam Mix MD 10/12/2020 16:53 Shyam Mix MD in [place] 10/12/2020 16:53
--- NOTE | 2020-10-12 17:20 | PC.NURSE ---
patient has done okay this shift. did walk the halls. occasional complaints of a suffocating feeling. states she has bubbles in chest. this evening she is cleared than morning assessment. noted to have scattered expiratory wheezing. no bubble/popping noises noted. patient takes o2 off and on. stated yesterday the lasix seemed to help her. has been eating and drinking okay. vitals stable will continue to monitor.
--- NOTE | 2020-10-12 20:00 | PC.NURSE ---
Placed in droplet precautions for Rhino virus.
--- NOTE | 2020-10-13 03:49 | PC.NURSE ---
Pt is alert and oriented x4. Pt has rested well with eyes closed this shift. C/o pain upon beginning of shift. Administered [place] x1 per MAR. Upon reassessment pt states adequate relief of pain to left side of neck. Pt also c/o SOA when on RA. RA sats noted 95%, no respiratory distress noted on RA. Applied 2 lnc per pt request. Pt at ease and much more calm with [address] during shift. Bilateral lungs noted clear t/o upon auscultation. RR noted even and unlabored. Denies N/V/D. No edema noted. Refused TEDS. VSS. Remains safe. Call light within reach. Will continue to monitor.
[2020-10-13 04:00] VITALS: BP 137/73; PULSE 65; RESP 18; TEMP 36.6; O2SAT 98
[2020-10-13 05:36] VITALS: BMI 37.5
[2020-10-13 06:48] VITALS: PULSE 88; PULSE 90; O2SAT 96
--- NOTE | 2020-10-13 08:46 | HMH.ACPN2 ---
Internal Medicine - PN: Subj *Date: 10/13/20 *Time: 08:46 Interval history: The patient is stable. She will be discharged today to the go to pulmonology for an appointment at 1045 with the nurse practitioner. She had a CT yesterday which showed paranasal sinus disease and some thyromegaly which actually narrows the trachea. These certainly could be factors in her current situation. We will arrange for Dr. Yen to follow-up with her regarding these issues. She has been receiving IV steroids. I will discharge her on prednisone 10 mg. This can be modified today at the pulmonary visit. I am not discharging her on antibiotics. That also can be assessed at the visit. Exam Vital signs and Labs for Last 24 Hours: Temp Pulse Resp BP Pulse Ox 97.8 F 90 18 137/73 96 10/13/20 04:00 10/13/20 06:48 10/13/20 04:00 10/13/20 04:00 10/13/20 06:48 Laboratory Results - last 24 hr 10/12/20 08:43: Specimen Source Right radial, O2 % 2l nc, ABG pH 7.45, ABG pCO2 36.6, ABG pO2 84.9, ABG HCO3 25.0, ABG Total CO2 26.2, ABG O2 Saturation 97, ABG Base Excess 1.1, Shyam Test Acceptable 10/12/20 09:21: Chlamy pneumoniae PCR Not detected, Adenovirus (PCR) Not detected, B. pertussis DNA (PCR) Not detected, Coronavirus OC43 (PCR) Not detected, Coronavirus HKU1 (PCR) Not detected, Coronavirus 229E (PCR) Not detected, SARS-CoV-2 (PCR) Not detected, Coronavirus NL63 (PCR) Not detected, Human Metapneumovir PCR Not detected, Influenza A (H1) PCR Not detected, Influ A (H1N1/09) PCR Not detected, Influenza A (H3) PCR Not detected, Influenza Type A (PCR) Not detected, Influenza Type B (PCR) Not detected, M. pneumoniae (PCR) Not detected, Parainfluenza 1 (PCR) Not detected, Parainfluenza 2 (PCR) Not detected, Parainfluenza 3 (PCR) Not detected, Parainfluenza 4 (PCR) Not detected, RSV (PCR) Not detected, Entero/Rhino (PCR) Detected A I & O for Last 24 hours: Intake & Output 10/10/20 10/11/20 10/12/20 10/13/20 11:59 11:59 11:59 11:59 Intake Total 4196 / 4196 480 / 480 1780 / 1780 660 / 660 Output Total 1480 / 1480 1200 / 1200 Balance 4196 / 4196 480 / 480 300 / 300 -540 / -540 Weight 218 lb 9 oz 222 lb 1 oz 220 lb 2 oz 220 lb 2 oz Microbiology Reports for the Last 24 Hours: Microbiology 10/07/20 19:38 Blood Blood Culture - Final NO GROWTH AFTER 5 DAYS 10/07/20 19:38 Blood Blood Culture - Final NO GROWTH AFTER 5 DAYS 10/09/20 06:00 Sputum - Expectorated Sputum Gram Stain - Final 10/09/20 06:00 Sputum - Expectorated Sputum Sputum Culture - Final Normal Respiratory Amie - Constitutional no acute distress - *Routine HEENT Exam Eye: Present: PERRL ENT: Present: mucous membranes moist - *Routine Respiratory Exam Present: decreased breath sounds, wheezes - *Routine Cardiovascular Exam Present: RRR - *Routine Abdominal Exam Present: soft, obese - *Routine Extremities Exam Absent: edema Assessment and Plan (1) Acute exacerbation of chronic obstructive airways disease Status: Acute Category: Medical Code(s): J44.1 - Chronic obstructive pulmonary disease with (acute) exacerbation (2) Obesity (BMI 30-39.9) Status: Acute Category: Medical Code(s): E66.9 - Obesity, unspecified (3) Septic shock Status: Acute Category: Medical Code(s): A41.9 - Sepsis, unspecified organism; R65.21 - Severe sepsis with septic shock (4) Acute bronchitis, unspecified Status: Acute Qualifiers: Bronchitis organism: unspecified organism Qualified Code(s): J20.9 - Acute bronchitis, unspecified Category: Medical Code(s): J20.9 - Acute bronchitis, unspecified (5) Asthma Status: Chronic Category: Medical Code(s): J45.909 - Unspecified asthma, uncomplicated - Assessment and plan all Dx Assessment and Plan for all problems:: Discharge. Pulmonary appointment this morning. Follow-up arranged with Dr. Yen
[2020-10-13 09:00] VITALS: BP 125/64; PULSE 94; RESP 18; TEMP 36.8; O2SAT 96
--- NOTE | 2020-10-13 10:36 | HMH.DCSUM ---
General - General Admission date:: 10/08/20 Discharge date: 10/13/20 HPI HPI: Ms. Barr is a 55-year-old female with a history of asthma, COPD, and hyperlipidemia. She states she normally has no issues with her asthma unless she is out in the cold. She did have an exacerbation of her COPD in 2015 where she developed bilateral pneumonia. She states on she became very short of breath and presented to the [facility] emergency room. She states she was given a prescription for prednisone and sent home. She went home and did nebulizer treatments which did not help. She presented back to the emergency room on Saturday and states they did a portable x-ray and gave her a steroid shot. She was told the x-ray was normal and she was sent home again, but still could not breathe. She ended up calling an ambulance which transported her to [facility]. 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 She was evaluated in the emergency room and her chest x-ray showed nothing acute. She had a CTA showing nothing acute. She was started on Rocephin and Zithromax as well as IV steroids and nebulizer treatments and admitted with a COPD exacerbation. Her white count was elevated as was her lactic acid. Her blood gas showed a pH of 7.49 a PCO2 of 24.2 and a PO2 of 138 to be serology was negative for Covid antibodies. She is feeling better this morning but gets short of breath with any movement. Hospital Course Hospital Course: The patient had an extensive work-up in the emergency room. Her CTA showed no evidence of PE. There was a possible right thyroid nodule but nothing acute with the lungs. She was diagnosed with an acute exacerbation of COPD and admitted and started on antibiotics, nebs, and steroids. She is followed by a day camp unit leader in Dr. Ham Marshall. She remained short of breath with a cough and congestion and production of yellow sputum. Neb treatments did seem to help as did the steroids. She had a repeat chest x-ray on 10/10/2020 showing increased density in the posterior costophrenic sulcus which could be due to an area of atelectasis versus infiltrate. Her blood and sputum cultures returned normal. Cardiology was consulted and they ordered an echocardiogram and some IV Lasix. Her echo was relatively unremarkable showing an EF of 55%. The patient did not see much improvement in her shortness of breath with the Lasix. She was still unable to lay down due to difficulty breathing. She continued to remain short of air at rest and with any movement. A respiratory panel was ordered and returned revealing rhino/enterovirus. Due to her previous history of neck surgery, a CT of the neck was ordered and it showed paranasal sinus disease and a mildly enlarged thyroid with some mild narrowing of the trachea. Dr. Webster spoke with the patient's day camp unit leader Dr. Cheek and an appointment was scheduled for her on an outpatient basis in their office on 10/13/2020 with his nurse practitioner. By 10/13/2020 the patient was stable. She was breathing a little bit better and her sats were normal on room air. She was stable to be discharged on oral prednisone and will report to her pulmonology office this morning for her appointment. An appointment will also be made for her with Dr. Yen due to her thyromegaly and narrowing of the trachea. Objective Vital signs: Temp Pulse Resp BP Pulse Ox 98.2 F 94 H 18 125/64 96 10/13/20 09:00 10/13/20 09:00 10/13/20 09:00 10/13/20 09:00 10/13/20 09:00 Narrative: - Constitutional no acute distress - *Routine HEENT Exam Head: Present: normocephalic Eye: Present: EOMI, PERRL ENT: Present: mucous membranes moist - *Routine Neck Exam Present: supple. Absent: lymphadenopathy - *Routine Respiratory Exam Present: decreased breath sounds, wheezes - *Routine Cardiovascular Exam Present: RRR - *Routine Abdominal Exam Pre
== END 2020-10-13 09:16 | disposition home or self-care (01) ==
LOC: ER 10-08 01:16 → 2ND 10-08 04:22
PROVIDERS: Nurse Practitioner Family; Physician Assistant; Admitting Provider Family Medicine; Emergency Provider Emergency Medicine; PCP Family Medicine; Visit Provider Family Medicine
DX: J44.0 Chronic obstructive pulmonary disease with (acute) lower respiratory infection (principal); J44.1 Chronic obstructive pulmonary disease with (acute) exacerbation; J20.6 Acute bronchitis due to rhinovirus; Z79.899 Other long term (current) drug therapy; Z79.51 Long term (current) use of inhaled steroids; E78.5 Hyperlipidemia, unspecified
CPT/HCPCS: 36415; 70490; 71046; 71275; 80048; 80053; 81001; 82803; 83036; 83605; 83735; 83880; 84145; 84484; 85007; 85025; 86328; 87040; 87070; 87205; 87581; 87633; 87798; 93005; 93306; 94640; 94667; 94668; 94761; 96365; 96366; 99284; G0378; J0456; Q9967; U0003

== ENCOUNTER → 2020-10-31 13:31 | Outpatient (CLI) | payer BC, MEDICARE, SELFPAY ==
[2020-10-31 14:57] LABS: Free T4 (Free Thyroxine) 1.19 ng/dl (0.78-2.19)
[2020-10-31 15:10] LABS: Thyroid Stimulating Hormone 0.56 uIU/mL (0.465-4.68)
[2020-11-02 09:50] LABS: Thyroid Peroxidase Antibodies <9 IU/mL (0-34)
== END ==
PROVIDERS: Visit Provider Otolaryngology
DX: E01.0 Iodine-deficiency related diffuse (endemic) goiter (principal); R13.10 Dysphagia, unspecified
CPT/HCPCS: 36415; 84439; 84443; 86376

== ENCOUNTER → 2020-11-21 13:33 | Outpatient (CLI) | payer BC, MEDICARE, SELFPAY ==
--- NOTE | 2020-11-21 13:34 | US_ITS ---
PROCEDURE: US THYROID CLINICAL INDICATION: Dysphagia, Thyromegaly COMPARISON: CT CT SOFT TISSUE NECK WO CON from 10/12/2020 FINDINGS: Right lobe: 5 x 2 x 3 cm. 7 x 5 mm spongiform nodule superiorly. 14 x 10 mm slightly hypoechoic nodule mid polar region well-circumscribed wider than tall without calcification. 14 x 11 mm slightly hypoechoic nodule mid polar region wider than tall well-circumscribed. No calcifications. 9 x 6 mm spongiform nodule lower pole. Left lobe: 4.7 x 1.8 x 2.4 cm. 5 mm hypoechoic nodule mid polar region Isthmus: Unremarkable Additional findings: None IMPRESSION: Enlarged thyroid gland withbilateral thyroid nodules. TR level 3 nodules on the right which are less than 2.5 cm. 6-12 month follow-up suggested Dictated by: Shyam Mix MD 11/21/2020 19:49 Shyam Mix MD in [place] 11/21/2020 19:49
== END ==
PROVIDERS: PCP Family Medicine; Visit Provider Otolaryngology
DX: R13.10 Dysphagia, unspecified (principal); E01.0 Iodine-deficiency related diffuse (endemic) goiter
CPT/HCPCS: 76536

== ENCOUNTER → 2020-12-06 13:27 | Outpatient (CLI) | payer BC, MEDICARE, SELFPAY ==
--- NOTE | 2020-12-06 13:28 | CT_ITS ---
PROCEDURE: CT SINUS WO CON CLINICAL HISTORY: maxillary pain Septoplasty 6 years ago. Pain around nose and under left eye No prior COMPARISON: CT CT SOFT TISSUE NECK WO CON from 10/12/2020 TECHNIQUE: Axial images obtained with sagittal and coronal reformats. All CT scans at the facility use one or more dose reduction, viz: automated exposure control, ma/kV adjustment per patient size (including targeted exams where dose is matched to indication, i.e. head), or iterative reconstruction technique. FINDINGS: No mucosal thickening or air-fluid levels of the paranasal sinuses. The ostiomeatal units are patent. There is minimal rightward nasal septal deviation anteriorly and minimal leftward nasal septal deviation posteriorly. Nasal septum appears. No mastoid effusion. The orbits have an unremarkable appearance. There is hyperostosis frontalis interna IMPRESSION: Negative CT sinuses. Minimal rightward nasal septal deviation anteriorly and leftward deviation posteriorly Dictated by: Shyam Mix MD 12/07/2020 09:45 Shyam Mix MD in [facility] 12/07/2020 09:46
== END ==
PROVIDERS: PCP Family Medicine; Visit Provider Otolaryngology
DX: R68.84 Jaw pain (principal)
CPT/HCPCS: 70486

== ENCOUNTER 2021-01-17 17:51 | Emergency (ER) | payer BC, MEDICARE, SELFPAY ==
[2021-01-17] VITALS (8 sets, daily range): BP systolic 122–126; BP diastolic 69–79; PULSE 98–119; RESP 8–18; TEMP 37.2–37.4; O2SAT 95–97; BMI 37.4
--- NOTE | 2021-01-17 18:08 | XR_ITS ---
PROCEDURE: XR CHEST 2V CLINICAL HISTORY: soa COMPARISON: CR XR CHEST 2V from 01/18/2020 CR XR CHEST 2V from 10/07/[address] ANGIO CHEST from 10/07/2020 CR XR CHEST 2V from 10/10/2020 FINDINGS: The cardiomediastinal silhouette and pulmonary vascularity are within normal limits. The lungs are clear without infiltrates, suspicious nodules, or pleural effusions. Bone plate is present along the lower cervical spine. IMPRESSION: No acute findings. Dictated by: Shyam Mix MD 01/18/2021 07:19 Shyam Mix MD in [facility] 01/18/2021 07:19
[2021-01-17 18:47] LABS: Basophils # 0.1 K/mm3 (0-0.2); Eosinophils # 0.2 K/mm3 (0.0-0.4); Eosinophils % 2.8 % (0.1-12.0); Hematocrit 37.8 % (37.0-47.0); Hemoglobin 12.3 g/dL (12.2-16.2); Lymphocytes # 1.2 K/mm3 (0.7-4.5); Lymphocytes % 15.4 % (10-50); Mean Corpuscular HGB Conc 32.5 g/dL (31.8-35.4); Mean Corpuscular Hemoglobin 27.5 pg (27.0-31.2); Mean Corpuscular Volume 84.8 fl (81-99); Mean Platelet Volume 7.2 fl (7.4-10.4); Monocytes # 0.7 K/mm3 (0.1-1.0); Neutrophils # 5.4 K/mm3 (1.8-7.8); Neutrophils % 71.8 % (37.0-80.0); Platelet Count 279 K/mm3 (142-424); Red Blood Count 4.46 M/mm3 (4.20-5.40); Red Cell Distribution Width 13.5 % (11.5-17.5); White Blood Count 7.5 K/mm3 (4.8-10.8)
[2021-01-17 19:03] LABS: Chloride 106 mmol/L (98-107); Potassium 3.7 mmoL/L (3.5-5.1); Sodium 140 mmol/L (136-145)
[2021-01-17 19:06] LABS: Alanine Aminotransferase 56 U/L (12-78); Albumin Level 4.4 g/dl (3.5-5.0); Albumin/Globulin Ratio 1.4 (1.1-1.8); Alkaline Phosphatase 100 U/L (38-126); Anion Gap 11.7 mEq/L (5-15); Aspartate Amino Transferase 49 U/L (14-36); Bilirubin,Total 0.4 mg/dl (0.2-1.3); Blood Urea Nitrogen 10 mg/dl (7-17); Carbon Dioxide 26 mmol/L (22.0-30.0); Creatinine Clearance Estimated 127 mL/min (50-200); Estimated Glomerular Filt Rate 75 ml/min (>60); GFR (African American) 91 ML/MIN (>60); Globulin 3.2 g/dL (1.3-3.2); Total Protein,Serum 7.6 g/dl (6.3-8.2)
--- NOTE | 2021-01-17 19:06 | ECG_ITS ---
APPROVED REPORT Exam: Resting ECG HR:101 bpm ECG Measurements Heart Rate 101 AXES WY 136 P 59 QRSd 86 QRS 35 QT 352 T 34 QTc 456 Conclusion Sinus tachycardia Otherwise normal ECG Electronically signed by : Anjum Farooq, 01/18/2021 17:58:11
[2021-01-17 19:07] LABS: Calcium 9.2 mg/dl (8.4-10.2); Glucose 96 mg/dl (74-100)
[2021-01-17 19:23] LABS: Troponin I < 0.01 ng/ml (0.00-0.034)
--- NOTE | 2021-01-17 19:57 | HMH.EDSOB ---
ED Disposition Clinical Impression: Acute bronchitis, unspecified Qualifiers: Bronchitis organism: unspecified organism Qualified Code(s): J20.9 - Acute bronchitis, unspecified Disposition: Home, Self-Care Condition on Discharge: Good Referrals: Janes Mason [Primary Care Provider] - 01/20/21 8:00 am (call for an appt) Time of Disposition: 20:02 - Critical Care Critical Care Time: No Attestation: On 01/17/21, the high probability of a clinically significant, sudden or life threatening deterioration of the following system(s) required my full and direct attention, intervention and personal management. The time I documented below is in addition to time spent performing reported procedures but includes the following listed in this critical care notation. Medical Decision Making - Medical Records Medical records reviewed: Yes: I reviewed the patient's medical records. - [place] Inquiry Pt receiving controlled substance: No Vital Signs: 01/17/21 17:52 01/17/21 18:24 01/17/21 18:33 Temperature 99.3 F Temperature Source Oral Pulse Rate 112 H 112 H Pulse Rate [Left Radial] 119 H Respiratory Rate 14 15 17 Blood Pressure [Right Arm] 122/69 Blood Pressure Mean [Right Arm] 86 Blood Pressure Source [Right Arm] Automatic Cuff Blood Pressure Position [Right Arm] Sitting 02 Sat by Pulse Oximetry 95 95 97 Oxygen Delivery Method Room Air 01/17/21 18:45 01/17/21 19:00 01/17/21 19:15 Temperature Temperature Source Pulse Rate 101 H 98 H 98 H Pulse Rate [Left Radial] Respiratory Rate 13 15 8 L Blood Pressure [Right Arm] Blood Pressure Mean [Right Arm] Blood Pressure Source [Right Arm] Blood Pressure Position [Right Arm] 02 Sat by Pulse Oximetry 96 96 96 Oxygen Delivery Method 01/17/21 19:30 Temperature Temperature Source Pulse Rate 98 H Pulse Rate [Left Radial] Respiratory Rate 16 Blood Pressure [Right Arm] Blood Pressure Mean [Right Arm] Blood Pressure Source [Right Arm] Blood Pressure Position [Right Arm] 02 Sat by Pulse Oximetry 96 Oxygen Delivery Method - Lab Data Lab results reviewed: Yes: I reviewed the patient's lab results. Lab Results 01/17/21 18:39: WBC 7.5, RBC 4.46, Hgb 12.3, Hct 37.8, MCV 84.8, MCH 27.5, MCHC 32.5, RDW 13.5, Plt Count 279, MPV 7.2 L, Neut % (Auto) 71.8, Lymph % (Auto) 15.4, [place] % (Auto) 9.0, Eos % (Auto) 2.8, Baso % (Auto) 1.0, Neut # (Auto) 5.4, Lymph # (Auto) 1.2, [place] # (Auto) 0.7, Eos # (Auto) 0.2, Baso # (Auto) 0.1 01/17/21 18:39: Sodium 140, Potassium 3.7, Chloride 106, Carbon Dioxide 26, Anion Gap 11.7, BUN 10, Creatinine 0.80, Estimated Creat Clear 127, Estimated GFR 75, Est GFR ( Amer) 91, Glucose 96, Calcium 9.2, Total Bilirubin 0.4, AST 49 H, ALT 56, Alkaline Phosphatase 100, Troponin I < 0.01, Total Protein 7.6, Albumin 4.4, Globulin 3.2, Albumin/Globulin Ratio 1.4 Result diagrams: 01/17/21 18:39 01/17/21 18:39 Orders (Tests/Meds): ORDERS Category Date Time Status XR chest 2V Stat Exams 01/17/21 18:08 Taken Troponin I Q3H Lab 01/17/21 21:15 Ordered Troponin I Q3H Lab 01/18/21 00:15 Ordered - ECG Data Tracing #1 Sinus tachycardia, 101 bpm, no ST elevation or depression, no ectopy, QTC 456. ECG initial impression date: 01/17/21 ECG initial impression time: 19:12 Medical Decision Narrative: 55yo F patient evaluated for shortness of breath. Patient is satting 99% on room air. Patient is observed to have tachycardia 114 on initial presentation. Without any intervention, the patient's heart rate is improved to 100. She is in no acute distress. Physical exam is unremarkable. Given the patient's history, she will be treated prednisone 40 mg p.o. tonight and provide a prescription for prednisone 40 mg p.o. daily x2 days. Patient instructed to follow-up with her PCP on Saturday. Return to emergency department if shortness of breath worsens or she develops fever. Resp/SOB HPI - G
== END 2021-01-17 20:19 | disposition home or self-care (01) ==
PROVIDERS: Emergency Provider Family Medicine; PCP Family Medicine
DX: J20.9 Acute bronchitis, unspecified (principal); J45.909 Unspecified asthma, uncomplicated; M79.7 Fibromyalgia; E78.5 Hyperlipidemia, unspecified; Z79.899 Other long term (current) drug therapy; Z88.0 Allergy status to penicillin
CPT/HCPCS: 36415; 71046; 80053; 84484; 85025; 93005; 99282

== ENCOUNTER 2023-04-23 22:36 | Emergency (ER) | payer BC, MEDICARE, SELFPAY ==
--- NOTE | 2023-04-23 | ECG_ITS ---
APPROVED REPORT Exam: Resting ECG HR:77 bpm ECG Measurements Heart Rate 77 AXES CO 150 P 58 QRSd 87 QRS 52 QT 367 T 48 QTc 398 Conclusion SINUS RHYTHM NORMAL ECG UNCONFIRMED REPORT Electronically signed by : Anjum Farooq MD 04/24/2023 21:48:25
[2023-04-23 22:37] VITALS: BP 136/64; PULSE 83; RESP 16; TEMP 37; O2SAT 98; BMI 32.5
--- NOTE | 2023-04-23 22:48 | XR_ITS ---
PROCEDURE INFORMATION: Exam: XR Chest Exam date and time: 04/23/2023 10:51 PM Age: 57 years old Clinical indication: Other: Weakness TECHNIQUE: Imaging protocol: Radiologic exam of the chest. Views: 2 views. COMPARISON: CR XR CHEST 2V 01/17/2021 6:21 PM FINDINGS: Lungs: Unremarkable. No consolidation. Pleural spaces: Unremarkable. No pleural effusion. No pneumothorax. Heart/Mediastinum: Unremarkable. No cardiomegaly. Bones/joints: Unremarkable. IMPRESSION: No acute findings.
--- NOTE | 2023-04-23 22:51 | CT_ITS ---
PROCEDURE INFORMATION: Exam: CT Head Without Contrast Exam date and time: 04/23/2023 11:05 PM Age: 57 years old Clinical indication: Other: Gen weakness TECHNIQUE: Imaging protocol: Computed tomography of the head without contrast. Radiation optimization: All CT scans at this facility use at least one of these dose optimization techniques: automated exposure control; mA and/or kV adjustment per patient size (includes targeted exams where dose is matched to clinical indication); or iterative reconstruction. REPORTING DATA: Count of CT and Cardiac NM exams in prior 12 months: This patient has received 0 known CTs and 0 known cardiac nuclear medicine studies in the 12 months prior to the current study. COMPARISON: CT SINUS WO CON 12/06/2020 2:42 PM FINDINGS: Brain: Normal. No hemorrhage. Unremarkable white matter. No mass effect. Cerebral ventricles: No ventriculomegaly. Paranasal sinuses: Visualized sinuses are unremarkable. No fluid levels. Mastoid air cells: Visualized mastoid air cells are well aerated. Bones/joints: Unremarkable. No acute fracture. Soft tissues: Unremarkable. IMPRESSION: No acute intracranial abnormality.
--- NOTE | 2023-04-23 22:54 | HMH.EDWEAK ---
Discharge Plan Disposition Patient Disposition: Home, Self-Care Chief Complaint: Weakness Prescriptions Prescriptions: No Action hydrocodone-acetaminophen 1 EACH tablet 1 tab PO TID Label Comments: TAKE 1 TABLET BY MOUTH THREE TIMES DAILY pregabalin 100 MG capsule 100 mg PO TID Referrals Follow up/Referrals: Janes Mason [Primary Care Provider] - See instructions Renetta Salgado MD [Staff Physician] - See instructions Clinical Impressions Clinical Impression: Weakness Instructions Patient Instructions: DI for Muscle Weakness Discharge ED Provider: Daljit (ED)Janes Weakness HPI General Chief complaint: Weakness Stated complaint: light headed, weak, dizzy Time Seen by Provider: 04/23/23 22:45 Mode of Arrival: Wheelchair Source of Information: Patient, Spouse and Medical Record Limitations: No Limitations Description of Symptoms (Recalled from ER Triage Doc. by RN): pt states ahour ago prior to arrival pt had an episodes of weakness all the sudden. pt c/o all over weakness, dizziness. pt denies any vision changes or pain History of Present Illness HPI Narrative: acute onset of weakness - no sz or focal changes and no fever/rash or trauma Complaint: generalized weakness Onset (ago): hour(s) Duration: intermittent Location: generalized Migration: none Severity: moderate Associated symptoms: denies other symptoms Related Data Home Medications Medication Instructions Recorded Confirmed hydrocodone 7.5 mg-acetaminophen 1 tab PO TID Pain 10/07/20 04/23/23 325 mg tablet pregabalin 100 mg capsule 100 mg PO TID Pain 10/07/20 04/23/23 Allergies Allergy/AdvReac Type Severity Reaction Status Date / Time Penicillins Allergy Mild Verified 12/13/20 14:35 [facility] Disclaimer: The information contained in this section may have been updated after the patient was seen, as this information can be updated by other users. Social History Smoking Status: Never smoker alcohol intake: current substance use type: marijuana current occupational status: retired Travel in the last 8 weeks: None household members: spouse caffeine: No ROS Obtained: Yes All systems reviewed & no additional complaints except as documented Physical Exam General General appearance: alert Head Head exam: normocephalic Eye Eye exam: Present PERRL and EOMI ENT ENT exam: Present mucous membranes moist Neck Neck exam: Present trachea midline Respiratory Respiratory exam: Absent respiratory distress Cardiovascular Cardiovascular exam: Present regular rate Abdominal Exam Abdominal exam: Present soft Extremities Exam Extremities exam: Present full ROM Neurological Exam Neurological exam: Present alert, oriented X3, CN II-XII intact and motor sensory deficit Psychiatric Psychiatric exam: Present normal affect Skin Skin exam: Absent rash Medical Decision Making Medical Records Medical records reviewed: Yes I reviewed the patient's medical records. [place]ino Inquiry Pt receiving controlled substance: No Vital Signs: 04/23/23 22:37 04/23/23 23:30 04/24/23 00:01 Temperature 98.6 F Temperature Source Oral Pulse Rate 74 71 Pulse Rate [Right] 83 Respiratory Rate 16 12 14 Blood Pressure 114/69 114/63 Blood Pressure [Right Arm] 136/64 Blood Pressure Mean [Right Arm] 88 02 Sat by Pulse Oximetry 98 95 93 L Oxygen Delivery Method Room Air 04/24/23 01:00 04/24/23 02:13 Temperature 98.6 F Temperature Source Oral Pulse Rate 72 76 Pulse Rate [Right] Respiratory Rate 12 16 Blood Pressure 104/70 L 109/75 L Blood Pressure [Right Arm] Blood Pressure Mean [Right Arm] 02 Sat by Pulse Oximetry 99 Oxygen Delivery Method Room Air Lab Data Lab results reviewed: Yes I reviewed the patient's lab results. Lab Results 04/23/23 22:35: WBC 9.3, RBC 4.96, Hgb 13.4, Hct 41.2, MCV 83.1, MCH 27.0, MCHC 32.5, RDW 13.6, Plt Count 313, MPV 7.5, Neut % (Auto) 54.5, Lymph %
--- NOTE | 2023-04-23 22:55 | PC.NURSE ---
Pt provided with warm blanket
--- NOTE | 2023-04-23 22:59 | PC.NURSE ---
Pt gone to RAD via wheelchair
--- NOTE | 2023-04-23 23:09 | PC.NURSE ---
Pt returned from RAD
[2023-04-23 23:11] LABS: Basophils # 0.1 K/mm3 (0-0.2); Basophils % 0.5 % (0.1-2.0); Eosinophils # 0.4 K/mm3 (0.0-0.4); Eosinophils % 4.7 % (0.1-12.0); Hematocrit 41.2 % (37.0-47.0); Hemoglobin 13.4 g/dL (12.2-16.2); Lymphocytes % 32.6 % (10-50); Mean Corpuscular HGB Conc 32.5 g/dL (31.8-35.4); Mean Corpuscular Volume 83.1 fl (81-99); Mean Platelet Volume 7.5 fl (7.4-10.4); Monocytes # 0.7 K/mm3 (0.1-1.0); Monocytes % 7.7 % (1.7-9.3); Neutrophils # 5.1 K/mm3 (1.8-7.8); Neutrophils % 54.5 % (37.0-80.0); Platelet Count 313 K/mm3 (142-424); Red Blood Count 4.96 M/mm3 (4.20-5.40); Red Cell Distribution Width 13.6 % (11.5-17.5); White Blood Count 9.3 K/mm3 (4.8-10.8)
[2023-04-23 23:16] LABS: Alanine Aminotransferase 31 U/L (12-78); Albumin Level 4.2 g/dl (3.5-5.0); Albumin/Globulin Ratio 1.4 (1.1-1.8); Alkaline Phosphatase 83 U/L (38-126); Anion Gap 13.5 mEq/L (5-15); Aspartate Amino Transferase 32 U/L (14-36); Bilirubin,Total 0.5 mg/dl (0.2-1.3); Blood Urea Nitrogen 8 mg/dl (7-17); Calcium 9.4 mg/dl (8.4-10.2); Carbon Dioxide 30 mmol/L (22.0-30.0); Chloride 103 mmol/L (98-107); Creatinine Clearance Estimated 108 mL/min (50-200); Estimated Glomerular Filt Rate 74 ml/min (>60); GFR (African American) 90 ML/MIN (>60); Glucose 98 mg/dl (74-100); Potassium 3.5 mmoL/L (3.5-5.1); Sodium 143 mmol/L (136-145); Total Protein,Serum 7.2 g/dl (6.3-8.2)
[2023-04-23 23:30] VITALS: BP 114/69; PULSE 74; RESP 12; O2SAT 95
[2023-04-23 23:35] LABS: Procalcitonin 0.035 ng/mL (0.0-2.0)
[2023-04-23 23:36] LABS: Free T4 (Free Thyroxine) 1.15 ng/dl (0.78-2.19)
[2023-04-23 23:41] LABS: Troponin I < 0.01 ng/ml (0.00-0.034)
[2023-04-23 23:42] LABS: Erythrocyte Sedimentation Rate 18 mm/hr (0-30)
[2023-04-23 23:49] LABS: Thyroid Stimulating Hormone 1.21 uIU/mL (0.465-4.68)
--- NOTE | 2023-04-24 | PC.NURSE ---
Rounded on pt. Pt resting with eyes closed. updated that we are waiting on scan results.
[2023-04-24 00:01] VITALS: BP 114/63; PULSE 71; RESP 14; O2SAT 93
--- NOTE | 2023-04-24 00:30 | PC.NURSE ---
in room talking with patient at this time.
--- NOTE | 2023-04-24 00:54 | PC.NURSE ---
Pt ambulatory to bathroom and able to provide urine sample
[2023-04-24 01:00] VITALS: BP 104/70; PULSE 72; RESP 12; O2SAT 99
[2023-04-24 01:00] LABS: Microscopic, Urine URINE MICROSCOPIC (MICROSCOPIC)
[2023-04-24 01:01] LABS: Appearance,Urine CLEAR (Clear); Bilirubin,Urine Negative (Negative); Blood, Urine Negative (Negative); Color,Urine YELLOW (Yellow); Glucose,Urine (UA) Negative (Negative); Ketones,Urine Negative (Negative); Leukocyte Esterase,Urine TRACE (Negative); Nitrate,Urine Negative (Negative); PH,Urine 6.5 (5.0-8.5); Protein,Urine Negative (Negative); Urobilinogen,Urine 0.2 EU/dl (0.2)
[2023-04-24 01:16] LABS: Bacteria,Urine 1+ /lpf; Mucus,Urine 1+ /lpf
[2023-04-24 02:01] LABS: Troponin I < 0.01 ng/ml (0.00-0.034)
[2023-04-24 02:13] VITALS: BP 109/75; PULSE 76; RESP 16; TEMP 37; O2SAT 99
== END 2023-04-24 02:24 | disposition home or self-care (01) ==
PROVIDERS: Emergency Provider Emergency Medicine; PCP Family Medicine
DX: R53.1 Weakness (principal); R42 Dizziness and giddiness
CPT/HCPCS: 70450; 71046; 80053; 81001; 83735; 84145; 84439; 84443; 84484; 85025; 85651; 86140; 93005; 96360; 96361; 99285

== ENCOUNTER → 2023-06-17 12:10 | Outpatient (CLI) | payer BC, MEDICARE, SELFPAY ==
[2023-06-17 14:14] LABS: Vitamin B12 280 pg/mL (239-931)
== END ==
PROVIDERS: PCP Family Medicine; Visit Provider Nurse Practitioner Family
DX: R53.1 Weakness (principal); F11.90 Opioid use, unspecified, uncomplicated; G89.29 Other chronic pain; M54.2 Cervicalgia; R40.0 Somnolence; Z86.69 Personal history of other diseases of the nervous system and sense organs; Z98.1 Arthrodesis status
CPT/HCPCS: 36415; 82607; 93270

== ENCOUNTER → 2023-07-01 07:14 | Outpatient (CLI) | payer BC, MEDICARE, SELFPAY | PROVIDERS: PCP Family Medicine; Visit Provider Specialist | DX: R53.1 Weakness (principal); F11.90 Opioid use, unspecified, uncomplicated; M54.2 Cervicalgia; G89.29 Other chronic pain; R40.0 Somnolence; Z86.69 Personal history of other diseases of the nervous system and sense organs; Z98.1 Arthrodesis status | CPT/HCPCS: 95819 ==

== ENCOUNTER → 2023-07-05 11:10 | Outpatient (CLI) | payer MEDICARE, BC, SELFPAY ==
--- NOTE | 2023-07-05 11:10 | MR_ITS ---
FINAL REPORT CLINICAL HISTORY: seizure. EPISODE OF FATIGUE 2 MONTHS AGO FINDINGS: Multi planar MR imaging was obtained through the brain without contrast. The midline structures appear intact. There is no evidence of Chiari malformation. On T2 and flair axial images the brain parenchyma is homogeneous. The hippocampal formations appear symmetric. On diffusion-weighted images there is no evidence of restricted diffusion. The visualized paranasal sinuses demonstrate normal signal voids. The seventh and eighth nerve root complexes are intact. IMPRESSION: Essentially unremarkable nonenhanced brain MRI. Reviewed, Interpreted and Dictated by Neal Fortune MD Transcribed by Annamarie Barillas Authenticated and [facility]
== END ==
PROVIDERS: PCP Family Medicine; Visit Provider Nurse Practitioner Family
DX: F11.90 Opioid use, unspecified, uncomplicated (principal); G89.29 Other chronic pain; M54.2 Cervicalgia; R40.0 Somnolence; R53.1 Weakness; Z86.69 Personal history of other diseases of the nervous system and sense organs; Z98.1 Arthrodesis status; G40.89 Other seizures
CPT/HCPCS: 70551

== ENCOUNTER → 2023-07-31 16:20 | Outpatient (CLI) | payer MEDICARE, BC, SELFPAY ==
--- NOTE | 2023-07-31 16:24 | XR_ITS ---
PROCEDURE INFORMATION: Exam: XR Chest Exam date and time: 07/31/2023 4:25 PM Age: 58 years old Clinical indication: Cough; Additional info: Lower resp infection TECHNIQUE: Imaging protocol: Radiologic exam of the chest. Views: 2 views. COMPARISON: CR XR CHEST 2V 04/23/2023 10:51 PM FINDINGS: Lungs: Unremarkable. No consolidation. Pleural spaces: Unremarkable. No pleural effusion. No pneumothorax. Heart/Mediastinum: Unremarkable. No cardiomegaly. Bones/joints: Cervical fixation hardware is partially imaged. IMPRESSION: Clear lungs.
[2023-07-31 16:31] LABS: Adenovirus,PCR Not Detected (NotDetected); Bordetella Pertussis Not Detected (NotDetected); Chlamydophila Pneumoniae, PCR Not Detected (NotDetected); Coronavirus 19, PCR Not Detected (NotDetected); Coronavirus 229E Not Detected (NotDetected); Coronavirus NL63 Not Detected (NotDetected); Coronavirus OC43 Not Detected (NotDetected); Coronovirus HKU1,PCR Not Detected (NotDetected); Human Metapneumovirus Not Detected (NotDetected); Influenza A, PCR Not Detected (NotDetected); Influenza AH1, 2009 Not Detected (NotDetected); Influenza AH1, PCR Not Detected (NotDetected); Influenza AH3,PCR Not Detected (NotDetected); Influenza B, PCR Not Detected (NotDetected); Mycoplasma Pneumoniae, PCR Not Detected (NotDetected); Parainfluenza 1, PCR Not Detected (NotDetected); Parainfluenza 2, PCR Not Detected (NotDetected); Parainfluenza 3, PCR Not Detected (NotDetected); Parainfluenza 4, PCR Not Detected (NotDetected); Respiratory Syncytial Virus Not Detected (NotDetected)
[2023-07-31 18:09] LABS: Rhinovirus/Enterovirus Detected (NotDetected)
== END ==
PROVIDERS: PCP Family Medicine; Visit Provider Internal Medicine
DX: J22 Unspecified acute lower respiratory infection (principal); R06.02 Shortness of breath; B34.1 Enterovirus infection, unspecified; R09.89 Other specified symptoms and signs involving the circulatory and respiratory systems; J44.9 Chronic obstructive pulmonary disease, unspecified
CPT/HCPCS: 71046; 87070; 87077; 87205; 87581; 87632; 87798

== ENCOUNTER → 2023-07-31 16:43 | Outpatient (CLI) | payer MEDICARE, BC, SELFPAY | PROVIDERS: PCP Internal Medicine; Visit Provider Nurse Practitioner Family | DX: R05.9 Cough, unspecified (principal) ==

== ENCOUNTER → 2023-08-19 13:03 | Outpatient (CLI) | payer MEDICARE, BC, SELFPAY ==
--- NOTE | 2023-08-19 13:04 | MR_ITS ---
FINAL REPORT CLINICAL HISTORY: abn eeg. episodes of fatigue and unable to respond. f/u mri. COMPARISON: 07/05/2023 FINDINGS: Multiplanar MR imaging of the brain was performed without and with contrast. There is no evidence of intracranial hemorrhage or mass. No abnormal extra-axial fluid collection is seen. The ventricular size is within normal limits. There is no evidence of shift of the midline structures. The posterior fossa and brainstem have an unremarkable appearance. No area of abnormal restricted diffusion is identified. No abnormal contrast enhancement is seen. Normal major vessel vascular flow voids are noted. Mild mucosal thickening is noted in the maxillary sinuses. IMPRESSION: No acute intracranial abnormality identified. Reviewed, Interpreted and Dictated by Edwin Hilton III, MD Transcribed by Bailey Mario Authenticated and [facility]
== END ==
PROVIDERS: PCP Internal Medicine; Visit Provider Nurse Practitioner Family
DX: M43.22 Fusion of spine, cervical region (principal); R53.1 Weakness; R94.01 Abnormal electroencephalogram [EEG]
CPT/HCPCS: 70553; A9576

== ENCOUNTER 2023-09-27 17:23 | Emergency (ER) | payer MEDICARE, BC, SELFPAY ==
--- NOTE | 2023-09-27 18:02 | EXP.UTC ---
Discharge Plan Disposition Patient Disposition: Home, Self-Care Condition: Good Prescriptions Prescriptions: New prednisone 10 mg tablet 10 mg PO DIRECTED 9 Days Qty: 21 0RF Rx Instructions: Take 4 tablets daily for 3 days, then take 2 tablets daily for 3 days, then take 1 tablet daily for 3 days, then stop. levofloxacin [levofloxacin] 500 mg tablet 500 mg PO DAILY Qty: 7 0RF benzonatate [benzonatate] 100 mg capsule 100 mg PO TIDP PRN (Reason: Cough) Qty: 30 0RF guaifenesin [Mucinex] 600 mg tablet extended release 12hr 600 - 1,200 mg PO BIDP PRN (Reason: Congestion) Qty: 30 0RF No Action montelukast 10 mg tablet 10 mg PO DAILY Patient Comments: TAKE 1 TABLET BY MOUTH ONCE DAILY albuterol sulfate 90 mcg/actuation HFA aerosol inhaler 1 inh inhalation Q4HP PRN (Reason: SOA) budesonide-formoterol [Symbicort] 80-4.5 mcg/actuation HFA aerosol inhaler 2 puff inhalation DAILY Patient Comments: INHALE 2 PUFFS BY MOUTH TWICE DAILY hydrocodone-acetaminophen 7.5-325 mg tablet 1 tab PO BID Patient Comments: TAKE 1 TABLET BY MOUTH THREE TIMES DAILY Referrals Follow up/Referrals: Janes Mason [Primary Care Provider] - See instructions Activity Restrictions/Add. Instructions Additional Instructions/Restrictions: Drink plenty of fluids. Take tylenol or ibuprofen for pain or fever. Take the medications as directed. Follow up with your regular doctor. GO TO THE ER FOR ANY WORSENING SYMPTOMS Don't start the oral steroids until tomorrow, since you had the shot here today. Clinical Impressions Clinical Impression: COPD exacerbation Instructions Patient Instructions: Chronic Obstructive Pulmonary Disease, DI for Chronic Obstructive Pulmonary Disease Discharge ED Provider: Armando Thao [facility] General Stated complaint: SOA, congestion, cough Time Seen by Provider: 09/27/23 18:02 History of Present Illness Provider Complaint: She states that for the past 4 days she has had worsening chest and sinus congestion. She has a history of copd. Related Data Home Medications Medication Instructions Recorded Confirmed albuterol sulfate 90 mcg/actuation 1 inh inhalation Q4HP PRN SOA 06/17/23 09/27/23 aerosol inhaler budesonide-formoterol HFA 80 2 puff inhalation DAILY 06/17/23 09/27/23 mcg-4.5 mcg/actuation aerosol inhaler (Symbicort) montelukast 10 mg tablet 10 mg PO DAILY 06/17/23 09/27/23 hydrocodone 7.5 mg-acetaminophen 1 tab PO BID Pain 07/31/23 09/27/23 325 mg tablet Previous Rx's Medication Instructions Recorded benzonatate 100 mg capsule 100 mg PO TIDP PRN Cough #30 caps 09/27/23 guaifenesin 600 mg tablet, 600 - 1,200 mg PO BIDP PRN 09/27/23 extended release 12 hr (Mucinex) Congestion #30 tabs levofloxacin 500 mg tablet 500 mg PO DAILY #7 tabs 09/27/23 prednisone 10 mg tablet 10 mg PO DIRECTED 9 days #21 09/27/23 tabs Allergies Allergy/AdvReac Type Severity Reaction Status Date / Time Penicillins Allergy Mild Verified 07/31/23 15:37 [facility] Disclaimer: The information contained in this section may have been updated after the patient was seen, as this information can be updated by other users. Medical History (Updated 09/27/23 @ 18:53 by Armando Thao APRN) Abnormal EEG Endometriosis Fibroids Surgical History H/O breast augmentation H/O laparoscopy H/O nasal septoplasty History of appendectomy History of dilation and curettage Hx of cholecystectomy Family History Other Asthma Coronary artery disease Heart attack Social History Smoking Status: Never smoker alcohol intake: former substance use type: denies use current occupational status: retired Travel in the last 8 weeks: None household members: spous
[2023-09-27 18:10] VITALS: BP 147/82; PULSE 103; RESP 21; TEMP 36.9; O2SAT 97; BMI 32.5
[2023-09-27 18:44] VITALS: BP 147/82; PULSE 103; RESP 21; TEMP 36.9; O2SAT 97
== END 2023-09-27 19:13 | disposition home or self-care (01) ==
PROVIDERS: Emergency Provider Nurse Practitioner Family; PCP Family Medicine
DX: J44.1 Chronic obstructive pulmonary disease with (acute) exacerbation (principal); R05.9 Cough, unspecified; R09.81 Nasal congestion
CPT/HCPCS: 87635; 96372; 99204; 99212; G0463

== ENCOUNTER 2023-10-14 10:58 | Emergency (ER) | payer MEDICARE, BC, SELFPAY ==
[2023-10-14] VITALS (7 sets, daily range): BP systolic 122–137; BP diastolic 70–76; PULSE 97–130; RESP 13–20; TEMP 36.7–37.8; O2SAT 94–98; BMI 32.5
[2023-10-14 11:46] LABS: Basophils % 0.1 % (0.1-2.0); Eosinophils % 0.2 % (0.1-12.0); Hematocrit 41.9 % (37.0-47.0); Hemoglobin 14.1 g/dL (12.2-16.2); Lymphocytes # 0.5 K/mm3 (0.7-4.5); Lymphocytes % 3.9 % (10-50); Mean Corpuscular HGB Conc 33.5 g/dL (31.8-35.4); Mean Corpuscular Hemoglobin 29.4 pg (27.0-31.2); Mean Corpuscular Volume 87.7 fl (81-99); Mean Platelet Volume 7.8 fl (7.4-10.4); Monocytes # 0.5 K/mm3 (0.1-1.0); Monocytes % 3.4 % (1.7-9.3); Neutrophils # 12.7 K/mm3 (1.8-7.8); Neutrophils % 92.4 % (37.0-80.0); Platelet Count 284 K/mm3 (142-424); Red Blood Count 4.78 M/mm3 (4.20-5.40); Red Cell Distribution Width 13.5 % (11.5-17.5); White Blood Count 13.7 K/mm3 (4.8-10.8)
--- NOTE | 2023-10-14 11:48 | CT_ITS ---
FINAL REPORT TECHNIQUE: After the administration of intravenous contrast, axial images were obtained through the abdomen and pelvis by computed tomography. This study was performed with technique to keep radiation doses as low as reasonably achievable, (ALARA). Individualized dose reduction techniques using automated exposure control or adjustment of the MA and/or KV according to the patient's size were employed. CLINICAL HISTORY: n/v/d 12 hr, fever, abd pain FINDINGS: Abdomen: There is scarring at the left lung base. The liver is fatty infiltrated. Patient is status postcholecystectomy.. The spleen is unremarkable. The adrenals are normal. The pancreas is unremarkable. The kidneys enhance appropriately. The aorta is normal in caliber. There is no free fluid or adenopathy. There is a small sliding-type hiatal hernia. Pelvis: The appendix is not identified. The urinary bladder is incompletely distended. There is no free fluid or adenopathy. IMPRESSION: No acute intra-abdominal process. Reviewed, Interpreted and Dictated by Neal Fortune MD Transcribed by Carlotta Mendoza Authenticated and [facility]
[2023-10-14 11:55] LABS: MANUAL DIFFERENTIAL MANUAL DIFFERENTIAL (MANUAL DIFF)
[2023-10-14 11:58] LABS: Chloride 106 mmol/L (98-107)
[2023-10-14 11:59] LABS: Potassium 3.8 mmoL/L (3.5-5.1); Sodium 137 mmol/L (136-145)
[2023-10-14 12:01] LABS: Alanine Aminotransferase 39 U/L (12-78); Albumin Level 4.4 g/dl (3.5-5.0); Albumin/Globulin Ratio 1.5 (1.1-1.8); Alkaline Phosphatase 63 U/L (38-126); Anion Gap 10.8 mEq/L (5-15); Aspartate Amino Transferase 38 U/L (14-36); Blood Urea Nitrogen 9 mg/dl (7-17); Carbon Dioxide 24 mmol/L (22.0-30.0); Creatinine Clearance Estimated 142 mL/min (50-200); Estimated Glomerular Filt Rate 103 ml/min (>60); GFR (African American) 125 ML/MIN (>60); Lipase 37 U/L (23-300); Total Protein,Serum 7.4 g/dl (6.3-8.2)
[2023-10-14 12:02] LABS: Calcium 8.6 mg/dl (8.4-10.2); Glucose 140 mg/dl (74-100)
[2023-10-14 12:06] LABS: Lactic Acid 2.9 mmol/L (0.7-2.1)
[2023-10-14 12:49] LABS: Anisocytosis 1+; Lymphocytes % 3 % (10-50); Monocytes % 4 % (2-9); Neutrophils % 93 % (42-76); Total Cells Counted 100
[2023-10-14 12:50] LABS: Hypochromasia 1+; Platelet Estimate Normal
--- NOTE | 2023-10-14 13:34 | PC.NURSE ---
Pt stated Tell the doctor I'd like to be admitted. I won't get any attention at home and I'll get attention here. I'll heal faster with some attention . notified of this and she would like pt to PO challenge. Pt given pretzels, crackers, ice chips, and water. Call light at bedside if pt is unable to tolerate.
--- NOTE | 2023-10-14 13:36 | HMH.EDGENADL ---
Discharge Plan Disposition Patient Disposition: Home, Self-Care Condition: Fair Prescriptions Prescriptions: New ondansetron 4 mg tablet,disintegrating 4 mg PO Q8H 4 Days Qty: 12 2RF No Action montelukast 10 mg tablet 10 mg PO DAILY Patient Comments: TAKE 1 TABLET BY MOUTH ONCE DAILY albuterol sulfate 90 mcg/actuation HFA aerosol inhaler 1 inh inhalation Q4HP PRN (Reason: SOA) budesonide-formoterol [Symbicort] 80-4.5 mcg/actuation HFA aerosol inhaler 2 puff inhalation DAILY Patient Comments: INHALE 2 PUFFS BY MOUTH TWICE DAILY hydrocodone-acetaminophen 7.5-325 mg tablet 1 tab PO TID Patient Comments: TAKE 1 TABLET BY MOUTH THREE TIMES DAILY benzonatate [benzonatate] 100 mg capsule 100 mg PO TIDP PRN (Reason: Cough) Qty: 30 0RF guaifenesin [Mucinex] 600 mg tablet extended release 12hr 600 - 1,200 mg PO BIDP PRN (Reason: Congestion) Qty: 30 0RF Referrals Follow up/Referrals: Janes Mason [Primary Care Provider] - See instructions Activity Restrictions/Add. Instructions Additional Instructions/Restrictions: Please follow-up with your primary care provider. Please return to the emergency department if you develop any new or worsening symptoms or become concerned for your health. Clinical Impressions Clinical Impression: Gastroenteritis, Nausea vomiting and diarrhea Instructions Patient Instructions: DI for Diarrhea and Traveler's Diarrhea -- Adult, DI for Nausea -- Adult Discharge ED Provider: Kory Mcguire I General Adult HPI General Chief complaint: Nausea/Vomiting/Diarrhea Stated complaint: chills,achey,vomiting Time Seen by Provider: 10/14/23 11:07 Mode of Arrival: Family Vehicle Source of Information: Patient and Medical Record Limitations: No Limitations Description of Symptoms (Recalled from ER Triage Doc. by RN): Pt c/o severe nausea, vomiting, and diarrhea since 12 am. States she feels dehydrated and I've had septic shock so I'm very concerned . She reports abc cramping. Denies fever. She has taken [place] this am and Pepto last night. History of Present Illness HPI narrative: Patient is a 58-year-old female with history of COPD, asthma, prior sepsis secondary to pneumonia who is presenting to the emergency department with a less than 24-hour history of nausea, vomiting, diarrhea. This has been associated with intermittent abdominal cramping pain. Patient does not believe she got food poisoning, did not eat anything abnormal over the past 24 hours. She reports that she has had at least 14 episodes of both vomiting and diarrhea. She reports that she has not had any blood in her vomit, no bilious emesis. Has not had any blood in her stool and has been largely watery. She reports that she will have some cramping abdominal pain which is relieved following her bowel movements. She denies any associated chest pain, shortness of breath, difficulty breathing. She has had some fevers and chills at home and believes that some of her nieces and nephews have been sick with a GI illness. She denies prior history of diverticulitis. Patient was concerned she is dehydrated, her lips feel chapped. Related Data Home Medications Medication Instructions Recorded Confirmed albuterol sulfate 90 mcg/actuation 1 inh inhalation Q4HP PRN SOA 06/17/23 10/09/23 aerosol inhaler budesonide-formoterol HFA 80 2 puff inhalation DAILY 06/17/23 10/09/23 mcg-4.5 mcg/actuation aerosol inhaler (Symbicort) montelukast 10 mg tablet 10 mg PO DAILY 06/17/23 10/09/23 hydrocodone 7.5 mg-acetaminophen 1 tab PO TID Pain 10/09/23 10/09/23 325 mg tablet Previous Rx's Medication Instructions Recorded benzonatate 100 mg capsule 100 mg PO TIDP PRN Cough #30 caps 09/27/23 guaifenesin 600 mg tablet, 600 - 1,200 mg PO BIDP PRN 09/27/23 extended release 12 hr (Mucinex) Congestion #30 tabs ondansetron 4 mg disintegrating 4 mg PO Q8H 4 days #12 tabs 10/14/23 tablet All
--- NOTE | 2023-10-14 13:53 | PC.NURSE ---
Pt ambulatory to bathroom and back to bed. Urine collected. Pt tolerated crackers and water. Call light remains within reach. No other needs voiced.
[2023-10-14 13:57] LABS: Microscopic, Urine URINE MICROSCOPIC (MICROSCOPIC)
[2023-10-14 14:03] LABS: Appearance,Urine CLEAR (Clear); Bilirubin,Urine Negative (Negative); Blood, Urine Negative (Negative); Color,Urine YELLOW (Yellow); Glucose,Urine (UA) Negative (Negative); Ketones,Urine Negative (Negative); Leukocyte Esterase,Urine Negative (Negative); Nitrate,Urine Negative (Negative); PH,Urine 6.5 (5.0-8.5); Protein,Urine Negative (Negative); Urobilinogen,Urine 0.2 EU/dl (0.2)
[2023-10-14 14:32] LABS: Squamous Epithelial Cell,Urine Occasional #/hpf (0-5); WBC,Urine Occasional #/hpf (0-3)
--- NOTE | 2023-10-14 14:39 | PC.NURSE ---
DR CROW AT BEDSIDE FOR REEVALUATION
[2023-10-14 15:51] LABS: Reflex Lactic Add Lactic Reflex
== END 2023-10-14 15:07 | disposition home or self-care (01) ==
PROVIDERS: Emergency Provider Emergency Medicine; PCP Family Medicine
DX: K52.9 Noninfective gastroenteritis and colitis, unspecified (principal); R10.9 Unspecified abdominal pain; J44.9 Chronic obstructive pulmonary disease, unspecified
CPT/HCPCS: 74177; 80053; 81001; 83605; 83690; 85007; 85025; 96361; 96374; 99285; J2405; Q9967

== ENCOUNTER 2023-12-05 16:09 | Outpatient (CLI) | payer MEDICARE, BC, SELFPAY ==
[2023-12-05 17:07] LABS: Basophils # 0.1 K/mm3 (0-0.2); Basophils % 1.1 % (0.1-2.0); Eosinophils # 0.2 K/mm3 (0.0-0.4); Eosinophils % 2.5 % (0.1-12.0); Hematocrit 43.6 % (37.0-47.0); Hemoglobin 14.4 g/dL (12.2-16.2); Lymphocytes # 2.7 K/mm3 (0.7-4.5); Lymphocytes % 29.5 % (10-50); Mean Corpuscular Hemoglobin 28.8 pg (27.0-31.2); Mean Corpuscular Volume 87.5 fl (81-99); Mean Platelet Volume 7.8 fl (7.4-10.4); Monocytes # 0.7 K/mm3 (0.1-1.0); Monocytes % 7.4 % (1.7-9.3); Neutrophils # 5.3 K/mm3 (1.8-7.8); Neutrophils % 59.3 % (37.0-80.0); Platelet Count 318 K/mm3 (142-424); Red Blood Count 4.99 M/mm3 (4.20-5.40); Red Cell Distribution Width 13.4 % (11.5-17.5); White Blood Count 8.9 K/mm3 (4.8-10.8)
[2023-12-10 09:08] LABS: D001-IgE D pteronyssinus 0.54 kU/L (Class I); D002-IgE D farinae 0.58 kU/L (Class II); E001-IgE Cat Dander 0.13 kU/L (Class 0/I); E005-IgE Dog Dander 0.84 kU/L (Class II); E072-IgE Mouse Urine 0.22 kU/L (Class 0/I); G002-IgE Bermuda Grass <0.10 kU/L (Class 0); G006-IgE Timothy Grass <0.10 kU/L (Class 0); I006-IgE Cockroach, German <0.10 kU/L (Class 0); Immunoglobulin E, Total 39 IU/mL (6-495); M001-IgE Penicillium chrysogen <0.10 kU/L (Class 0); M002-IgE Cladosporium herbarum <0.10 kU/L (Class 0); M003-IgE Aspergillus fumigatus <0.10 kU/L (Class 0); T001-IgE Maple/Box Elder <0.10 kU/L (Class 0); T003-IgE Common Silver Birch <0.10 kU/L (Class 0); T006-IgE Cedar, Mountain <0.10 kU/L (Class 0); T007-IgE Oak, White <0.10 kU/L (Class 0); T008-IgE Elm, American <0.10 kU/L (Class 0); T010-IgE Walnut <0.10 kU/L (Class 0); T011-IgE Maple Leaf Sycamore <0.10 kU/L (Class 0); T014-IgE Cottonwood <0.10 kU/L (Class 0); T015-IgE Ash, White <0.10 kU/L (Class 0); T022-IgE Pecan, Hickory <0.10 kU/L (Class 0); T070-IgE White Mulberry <0.10 kU/L (Class 0); W001-IgE Ragweed, Short 4.35 kU/L (Class IV); W011-IgE Thistle, Russian <0.10 kU/L (Class 0); W014-IgE Pigweed, Common <0.10 kU/L (Class 0); W018-IgE Sheep Sorrel <0.10 kU/L (Class 0)
== END 2023-12-05 23:59 ==
LOC: LAB 16:11
PROVIDERS: PCP Family Medicine; Visit Provider Internal Medicine Pulmonary Disease
DX: J45.909 Unspecified asthma, uncomplicated (principal)
CPT/HCPCS: 36415; 82785; 85025; 86003

== ENCOUNTER 2023-12-11 10:26 | Outpatient (CLI) | payer MEDICARE, BC, SELFPAY ==
--- NOTE | 2023-12-11 10:30 | XR_ITS ---
FINAL REPORT CLINICAL HISTORY: PNM/SOB FINDINGS: Two views of the chest were obtained. The heart size and pulmonary vascularity are within normal limits. The mediastinum is normal. No acute pulmonary abnormality is identified. There is no pneumothorax. The bony thorax is intact. There are postoperative changes in the lower cervical spine. IMPRESSION: No active cardiopulmonary disease. Reviewed, Interpreted and Dictated by Edwin Hilton III, MD Transcribed by Annamarie Barillas Authenticated and [facility]
[2023-12-11 10:50] LABS: Coronavirus 19, PCR Not Detected (NotDetected); Influenza A, PCR Not Detected (NotDetected); Influenza B, PCR Not Detected (NotDetected)
== END 2023-12-11 23:59 ==
PROVIDERS: PCP Family Medicine; Visit Provider Internal Medicine Pulmonary Disease
DX: R06.02 Shortness of breath (principal); R50.9 Fever, unspecified; J45.909 Unspecified asthma, uncomplicated; B96.89 Other specified bacterial agents as the cause of diseases classified elsewhere
CPT/HCPCS: 71046; 87070; 87205; 87636

== ENCOUNTER 2024-01-08 13:20 | Outpatient (CLI) | payer MEDICARE, BC, SELFPAY ==
--- NOTE | 2024-01-08 14:03 | XR_ITS ---
FINAL REPORT TECHNIQUE: AP lateral and oblique views of the cervical spine with flexion and extension views. CLINICAL HISTORY: neck pain, prior fusion COMPARISON: None FINDINGS: CERVICAL SPINE FLEXION AND EXTENSION: Mild and moderate degenerative changes present in the cervical spine. The patient has undergone prior anterior cervical fusion at the C5-C7 levels. Multilevel osteophytes are present. No abnormal movement is noted with flexion and extension views. Oblique views reveal mild right C4-5 neuroforaminal narrowing. IMPRESSION: Mild and moderate degenerative change in the cervical spine as described. Reviewed, Interpreted and Dictated by Edwin Hilton III, MD Transcribed by Bailey Mario Authenticated and [facility]
[2024-01-09 13:13] LABS: Homocyst(e)ine 10.4 umol/L (0.0-14.5)
[2024-01-15 23:25] LABS: Methylmalonic Acid 86 nmol/L (0-378)
== END 2024-01-08 23:59 ==
LOC: LAB 13:21
PROVIDERS: PCP Family Medicine; Visit Provider Nurse Practitioner Family
DX: E53.8 Deficiency of other specified B group vitamins; M54.2 Cervicalgia; G89.29 Other chronic pain; R53.1 Weakness; R40.0 Somnolence; F11.90 Opioid use, unspecified, uncomplicated; R94.01 Abnormal electroencephalogram [EEG]; Z86.69 Personal history of other diseases of the nervous system and sense organs; Z98.1 Arthrodesis status; Z79.899 Other long term (current) drug therapy
CPT/HCPCS: 36415; 72052; 83090; 83921

== ENCOUNTER 2024-02-11 12:47 | Outpatient (CLI) | payer MEDICARE, BC, SELFPAY ==
[2024-02-11 13:40] VITALS: PULSE 90; PULSE 94
[2024-02-11] MEDS: ALBUTEROL 0.083% 2.5 MG/3 ML NEB IH (13:40)
== END 2024-02-11 23:59 | disposition home or self-care (01) ==
LOC: RT 12:47
PROVIDERS: PCP Family Medicine; Visit Provider Internal Medicine Pulmonary Disease
DX: R06.09 Other forms of dyspnea (principal)
CPT/HCPCS: 94060; 94618; 94640; 94726; 94729

== ENCOUNTER 2024-07-20 15:15 | Emergency (ER) | payer MEDICARE, BC, SELFPAY ==
[2024-07-20 15:25] VITALS: BP 131/66; PULSE 82; RESP 20; TEMP 36.6; O2SAT 98; BMI 32.9
[2024-07-20 15:39] LABS: UTC Strep Screen (Rapid) Negative (Negative)
--- NOTE | 2024-07-20 16:05 | EXP.UTC ---
Discharge Plan Disposition Patient Disposition: Home, Self-Care Condition: Good Prescriptions Prescriptions: New azithromycin [Zithromax] 250 mg tablet 250 mg PO UD DOSE PK Qty: 6 0RF Rx Instructions: Take two (2) tablets today, then one (1) tablet days #2 thru #5 lidocaine HCl [Lidocaine Viscous] 2 % solution 1 applic mucous membrane QID PRN (Reason: pain) Qty: 100 0RF methylprednisolone 4 mg Tablets,Dose Pack 4 mg PO DIRECTED 6 Days Qty: 21 0RF Rx Instructions: Take 1 pack as directed for 6 days triamcinolone acetonide 0.1 % paste 1 applic dental BID 7 Days Qty: 5 0RF Rx Instructions: use after food and/or drink and/or oral hygiene No Action hydrocodone-acetaminophen 7.5-325 mg tablet 1 tab PO DAILY albuterol sulfate 90 mcg/actuation HFA aerosol inhaler 2 puff INHALATION Q6HP PRN (Reason: SOA) Patient Comments: INHALE 2 PUFFS BY MOUTH EVERY 6 HOURS NEEDED FOR SHORTNESS OF BREATH OR WHEEZING pregabalin 50 mg capsule 50 mg PO DAILY Breztri Aerosphere 160-9-4.8 mcg/actuation HFA aerosol inhaler 2 puff INHALATION BID Patient Comments: INHALE 2 PUFFS BY MOUTH TWICE DAILY Referrals Follow up/Referrals: Janes Mason [Primary Care Provider] - See instructions Activity Restrictions/Add. Instructions Additional Instructions/Restrictions: Drink plenty of fluids. Take tylenol or ibuprofen for pain or fever. Take the medications as directed. Follow up with your regular doctor. GO TO THE ER FOR ANY WORSENING SYMPTOMS Apply the topical triamcinolone dental paste and viscous lidocaine with a cotton tipped applicator (q-tip). Clinical Impressions Clinical Impression: Pharyngitis, Mouth ulcer Instructions Patient Instructions: DI for Pharyngitis/Tonsillopharyngitis -- Adult, Lidocaine Viscous Print Language Print Language: Turkmen Discharge ED Provider: Armando Thao [facility] General Stated complaint: sore under tongue and sore throat Mode of Arrival: Ambulatory Source of Information: Patient Limitations: No Limitations Time Seen by Provider: 07/20/24 16:05 Description of Symptoms (Recalled from Triage Doc. by RN): PATIENT C/O SORE THROAT, FATIGUE, CANKER SORE UNDER TONGUE, AND BRAIN FOG X 1 WEEK HEENT Symptoms (Recalled from RN notes): Yes Resp Symptoms (Recalled from RN notes): No Skin Symptoms (Recalled from RN notes): No MS Symptoms (Recalled from RN notes): No Functional Status (Recalled from RN notes): WNL Related Data Home Medications ?Medication ?Instructions ?Recorded ?Confirmed albuterol sulfate 90 mcg/actuation 2 puff inhalation Q6HP PRN SOA 07/20/24 07/20/24 aerosol inhaler budesonide 160 mcg-glycopyr 9 2 puff inhalation BID 07/20/24 07/20/24 mcg-formot 4.8 mcg/actuation HFA inhaler (Breztri Aerosphere) hydrocodone 7.5 mg-acetaminophen 1 tab PO DAILY 07/20/24 07/20/24 325 mg tablet pregabalin 50 mg capsule 50 mg PO DAILY 07/20/24 07/20/24 Previous Rx's ?Medication ?Instructions ?Recorded azithromycin 250 mg tablet 250 mg PO UD DOSE PK #6 tabs 07/20/24 (Zithromax) lidocaine HCl 2 % mucosal solution 1 applic mucous membrane QID PRN 07/20/24 (Lidocaine Viscous) pain #100 mL methylprednisolone 4 mg tablets in 4 mg PO DIRECTED 6 days #21 tabs 07/20/24 a dose pack triamcinolone acetonide 0.1 % 1 applic dental BID 7 days #5 grams 07/20/24 dental paste Allergies Allergy/AdvReac Type Severity Reaction Status Date / Time Penicillins Allergy Mild Unknown Verified 07/20/24 15:37 allergy reaction Sulfa (Sulfonamide Allergy Hives Verified 07/20/24 15:37 Antibiotics) Worker's Comp Is this a Worker's Comp case?: No [facility] Disclaimer: The information contained in this section may have been updated after the patient was seen, as this information can be updated by other users. Medical History Chronic neck pain Bronchitis Shortness of Breath Cough Pneumonia Febrile illness, acute Body aches Acute dyspnea Allergic rhinitis Dyspnea on exertion Abnormal EEG Fibroids Endometriosis Surgical History H/O breast augmentation History of appendectomy H/O nasal septoplasty Hx of cholecystectomy History of dilation and curettage multiple H/O laparoscopy Family History Other Asthma Coronary artery disease Heart attack Social History Smoking Status: Never smoker alcohol intake: former substance use type: denies use current occupational status: retired Travel in the last 8 weeks: None household members: spouse housing: house marital status: caffeine: No ROS Obtained: Yes All systems reviewed & no additional complaints except as documented Constitutional Constitutional: Reports chills and Reports fever(s) Eyes Eyes: Denies eye discharge ENT Ears, Nose, Mouth, and Throat: Reports as per HPI Cardiovascular Cardiovascular: Denies chest pain Respiratory Respiratory: Denies chest congestion and Reports cough Gastrointestinal Gastrointestingal: Reports nausea; Denies abdominal pain, constipation, cramping, diarrhea or vomiting Musculoskeletal Musculoskeletal: Denies arthralgias Integumentary/Breasts Skin/Breast: Denies rash Neurologic Neurologic: Denies paresthesias Physical Exam General General appearance: alert and in no apparent distress Head Head exam: atraumatic, normocephalic and normal inspection Eye Eye exam: Present normal appearance, PERRL and EOMI ENT ENT exam: Present mucous membranes moist and normal external ear exam Expanded ENT Exam TM/Canal exam: Bilateral TM: erythema and bulging Nose exam: Absent sinus tenderness Mouth exam: Present normal external inspection; Absent drooling Teeth exam: Present normal inspection Throat exam: Present tonsillar erythema, tonsillomegaly and tonsillar exudate Neck Neck exam: Present normal inspection, full ROM and trachea midline; Absent tenderness, meningismus or lymphadenopathy Chest Chest inspection: Present normal inspection and symmetric chest wall rise; Absent tenderness Respiratory Respiratory exam: Present normal lung sounds bilaterally; Absent respiratory distress, wheezes, stridor or accessory muscle use Cardiovascular Cardiovascular exam: Present regular rate and normal rhythm; Absent systolic murmur or diastolic murmur Abdominal Exam Abdominal exam: Present soft and normal bowel sounds; Absent distention, tenderness, guarding, rebound or rigidity Extremities Exam Extremities exam: Present normal inspection and normal capillary refill; Absent calf tenderness Back Exam Back exam: Present normal inspection and full ROM; Absent tenderness, CVA tenderness (R) or CVA tenderness (L) Neurological Exam Neurological exam: Present alert, oriented X3 and CN II-XII intact Psychiatric Psychiatric exam: Present normal affect and normal mood Skin Skin exam: Present warm, dry, intact and normal color Medical Decision Making Medical Records Medical records reviewed: No I reviewed the patient's medical records. [place] Inquiry Pt receiving controlled substance: No Vital Signs: 07/20/24 15:25 Temperature 97.9 F Temperature Source Oral Pulse Rate [Left Brachial] 82 Respiratory Rate 20 Blood Pressure [Left Arm] 131/66 Blood Pressure Mean [Left Arm] 87 Blood Pressure Source [Left Arm] Automatic Cuff Blood Pressure Position [Left Arm] Sitting 02 Sat by Pulse Oximetry 98 Oxygen Delivery Method Room Air Lab Data Lab results reviewed: Yes I reviewed the patient's lab results. Lab Results 07/20/24 15:34: Strep Scn [facility] Negative 07/20/24 16:36 07/20/24 16:36 Orders (Tests/Meds): ORDERS Category Date Time Status Strep Screen Confirmation Stat Micro 07/20/24 15:34 Received
[2024-07-20 16:44] LABS: Basophils # 0.1 K/mm3 (0-0.2); Eosinophils # 0.3 K/mm3 (0.0-0.4); Eosinophils % 3.8 % (0.1-12.0); Hematocrit 42.2 % (37.0-47.0); Hemoglobin 13.3 g/dL (12.2-16.2); Lymphocytes # 2.4 K/mm3 (0.7-4.5); Lymphocytes % 28.9 % (10-50); Mean Corpuscular HGB Conc 31.6 g/dL (31.8-35.4); Mean Corpuscular Hemoglobin 29.3 pg (27.0-31.2); Mean Corpuscular Volume 92.6 fl (81-99); Mean Platelet Volume 7.6 fl (7.4-10.4); Monocytes # 0.6 K/mm3 (0.1-1.0); Monocytes % 7.6 % (1.7-9.3); Neutrophils # 4.9 K/mm3 (1.8-7.8); Neutrophils % 58.7 % (37.0-80.0); Platelet Count 288 K/mm3 (142-424); Red Blood Count 4.55 M/mm3 (4.20-5.40); Red Cell Distribution Width 13.5 % (11.5-17.5); White Blood Count 8.3 K/mm3 (4.8-10.8)
[2024-07-20 16:53] LABS: Chloride 108 mmol/L (98-107); Potassium 3.9 mmoL/L (3.5-5.1); Sodium 142 mmol/L (136-145)
[2024-07-20 16:56] LABS: Anion Gap 8.9 mEq/L (5-15); Blood Urea Nitrogen 16 mg/dl (7-17); Calcium 9.1 mg/dl (8.4-10.2); Carbon Dioxide 29 mmol/L (22.0-30.0); Creatinine Clearance Estimated 122 mL/min (50-200); Estimated Glomerular Filt Rate 86 ml/min (>60); GFR (African American) 104 ML/MIN (>60); Glucose 98 mg/dl (74-100)
[2024-07-20 17:09] LABS: Monoscreen (Rapid) Negative (Negative)
[2024-07-20 17:39] VITALS: BP 131/66; PULSE 82; RESP 20; TEMP 36.6; O2SAT 98
== END 2024-07-20 17:46 | disposition home or self-care (01) ==
PROVIDERS: Emergency Provider Nurse Practitioner Family; PCP Family Medicine
DX: J02.9 Acute pharyngitis, unspecified (principal); K12.1 Other forms of stomatitis; R53.83 Other fatigue; R41.840 Attention and concentration deficit
CPT/HCPCS: 80048; 85025; 86318; 87880; 99212; 99214; G0463

== ENCOUNTER 2024-10-15 09:41 | Emergency (ER) | payer MEDICARE, BC, SELFPAY ==
[2024-10-15] VITALS (10 sets, daily range): BP systolic 112–143; BP diastolic 57–80; PULSE 80–105; RESP 19–20; TEMP 36.7–36.8; O2SAT 93–100; BMI 33.5
--- NOTE | 2024-10-15 09:44 | ED_ITS ---
Discharge Plan Disposition Patient Disposition: Home, Self-Care Condition: Good Prescriptions Prescriptions: New doxycycline hyclate 100 mg capsule 100 mg PO BID 10 Days Qty: 20 0RF ipratropium-albuterol 0.5 mg-3 mg(2.5 mg base)/3 mL solution for nebulization 3 ml inhalation Q6H PRN (Reason: wheezing) Qty: 90 0RF benzonatate 100 mg capsule 100 mg PO BID PRN (Reason: cough) 14 Days Qty: 30 0RF No Action albuterol sulfate 90 mcg/actuation HFA aerosol inhaler 2 inh inhalation Q6H PRN (Reason: shortness of breath or wheezing) 90 Days Qty: 8.5 3RF hydrocodone-acetaminophen 7.5-325 mg tablet 1 tab PO DAILY albuterol sulfate 90 mcg/actuation HFA aerosol inhaler 2 puff INHALATION Q6HP PRN (Reason: SOA) Patient Comments: INHALE 2 PUFFS BY MOUTH EVERY 6 HOURS NEEDED FOR SHORTNESS OF BREATH OR WHEEZING pregabalin 50 mg capsule 50 mg PO DAILY Breztri Aerosphere 160-9-4.8 mcg/actuation HFA aerosol inhaler 2 puff INHALATION BID Patient Comments: INHALE 2 PUFFS BY MOUTH TWICE DAILY azithromycin [Zithromax] 250 mg tablet 250 mg PO UD DOSE PK Qty: 6 0RF Rx Instructions: Take two (2) tablets today, then one (1) tablet days #2 thru #5 lidocaine HCl [Lidocaine Viscous] 2 % solution 1 applic mucous membrane QID PRN (Reason: pain) Qty: 100 0RF methylprednisolone 4 mg Tablets,Dose Pack 4 mg PO DIRECTED 6 Days Qty: 21 0RF Rx Instructions: Take 1 pack as directed for 6 days triamcinolone acetonide 0.1 % paste 1 applic dental BID 7 Days Qty: 5 0RF Rx Instructions: use after food and/or drink and/or oral hygiene Referrals Follow up/Referrals: Janes Mason [Primary Care Provider] - See instructions Activity Restrictions/Add. Instructions Additional Instructions/Restrictions: I have prescribed a course of antibiotics for your presumed pneumonia, reviewing your testing results, your white blood cell count was elevated which may be attributable to infection as well as your recent steroid usage. Given that you are overall nontoxic-appearing and another lab called procalcitonin which is a marker of inflammation is within normal limits, I think it is more likely to be attributable to the steroids. After shared decision making we will treat with a course of antibiotics which I have sent to [facility] pharmacy. Please follow-up with your PCP and return with any new or worsening symptoms. I also prescribed DuoNeb solution for you to use in her nebulizer. Clinical Impressions Clinical Impression: Pneumonia Stand Alone Forms Stand Alone Forms: Work/School Release Instructions Patient Instructions: DI for Pneumonia -- Adult Print Language Print Language: Kuwaiti Discharge ED Provider: Osmany Roca General Adult HPI General Chief complaint: Upper Respiratory Infection Stated complaint: cough, congested, chills Time Seen by Provider: 10/15/24 09:43 History of Present Illness HPI narrative: Patient presents for evaluation of shortness of breath, cough, gradual in onset, constant, stable in course, occurring over the past several days. Previous therapies include course of steroids. Patient has been diagnosed with reactive airway disease in the past. No fevers or chills. No chest pain. No orthopnea or exertional dyspnea. No unilateral leg pain or leg swelling. Please note that above description of symptoms, in this electronic medical record under categorization of recalled from ER triage doctor by RN are reflective of an initial nursing assessment, however, is not reflective of my full history and physical exam that was personally taken and clarified. Consequentially, this preceding description of symptoms, which may include the patient's categorized chief complaint in the EMR, do not reflect my personal clinical impression, and the ultimate description of history of present illness and patient stated complaints should be deferred to this section of the note. Unless stated otherwise or congruent with this section of the note, additional signs, symptoms, or incongruence should be interpreted as inaccurate with my clinical impression. Related Data Home Medications ?Medication ?Instructions ?Recorded ?Confirmed albuterol sulfate 90 mcg/actuation 2 puff inhalation Q6HP PRN SOA 07/20/24 07/20/24 aerosol inhaler budesonide 160 mcg-glycopyr 9 2 puff inhalation BID 07/20/24 07/20/24 mcg-formot 4.8 mcg/actuation HFA inhaler (Breztri Aerosphere) hydrocodone 7.5 mg-acetaminophen 1 tab PO DAILY 07/20/24 07/20/24 325 mg tablet pregabalin 50 mg capsule 50 mg PO DAILY 07/20/24 07/20/24 Previous Rx's ?Medication ?Instructions ?Recorded azithromycin 250 mg tablet 250 mg PO UD DOSE PK #6 tabs 07/20/24 (Zithromax) lidocaine HCl 2 % mucosal solution 1 applic mucous membrane QID PRN 07/20/24 (Lidocaine Viscous) pain #100 mL methylprednisolone 4 mg tablets in 4 mg PO DIRECTED 6 days #21 tabs 07/20/24 a dose pack triamcinolone acetonide 0.1 % 1 applic dental BID 7 days #5 grams 07/20/24 dental paste albuterol sulfate 90 mcg/actuation 2 inh inhalation Q6H PRN shortness 08/06/24 aerosol inhaler of breath or wheezing 90 days #8.5 grams benzonatate 100 mg capsule 100 mg PO BID PRN cough 2 weeks 10/15/24 #30 caps doxycycline hyclate 100 mg capsule 100 mg PO BID 10 days #20 caps 10/15/24 ipratropium 0.5 mg-albuterol 3 mg 3 ml inhalation Q6H PRN wheezing 10/15/24 (2.5 mg base)/3 mL nebulization #90 mL soln Allergies Allergy/AdvReac Type Severity Reaction Status Date / Time Penicillins Allergy Mild Unknown Verified 07/20/24 15:37 allergy reaction Sulfa (Sulfonamide Allergy Hives Verified 07/20/24 15:37 Antibiotics) [facility] Disclaimer: The information contained in this section may have been updated after the patient was seen, as this information can be updated by other users. Medical History Chronic neck pain Bronchitis Shortness of Breath Cough Pneumonia Febrile illness, acute Body aches Acute dyspnea Allergic rhinitis Dyspnea on exertion Abnormal EEG Fibroids Endometriosis Surgical History H/O breast augmentation History of appendectomy H/O nasal septoplasty Hx of cholecystectomy History of dilation and curettage multiple H/O laparoscopy Family History Other Asthma Coronary artery disease Heart attack Social History Smoking Status: Never smoker alcohol intake: former substance use type: denies use current occupational status: retired Travel in the last 8 weeks: None household members: spouse housing: house marital status: caffeine: No Other Medical History Have you received the Flu Vaccine for this season: No Have you received the Pneumonia Vaccine: No ROS Obtained: Yes other As per HPI Physical Exam General General appearance: alert and in no apparent distress Head Head exam: atraumatic and normocephalic Eye Eye exam: Present normal appearance Neck Neck exam: Present normal inspection Chest Chest inspection: Present normal inspection and symmetric chest wall rise Respiratory Respiratory exam: Present normal lung sounds bilaterally; Absent respiratory distress Cardiovascular Cardiovascular exam: Present regular rate and normal rhythm Abdominal Exam Abdominal exam: Present soft Neurological Exam Neurological exam: Present alert and oriented X3 Psychiatric Psychiatric exam: Present normal affect and normal mood Skin Skin exam: Present warm and dry Medical Decision Making Medical Records Medical records reviewed: Yes I reviewed the patient's medical records. Screening: Per USPSTF and CDC recommendations, given the prevalence of disease in our region, it is our hospital?s policy to screen for HIV and viral Hepatitis for all patients aged 18 and over and those with ongoing risk factors. [place] Inquiry Pt receiving controlled substance: No Vital Signs: 10/15/24 09:43 10/15/24 10:00 10/15/24 10:30 Temperature 98.3 F Temperature Source Oral Pulse Rate 99 H 95 H Pulse Rate [Right] 99 H Respiratory Rate 19 Blood Pressure 113/67 113/66 Blood Pressure [Right Arm] 119/58 L Blood Pressure Mean [Right Arm] 78 Blood Pressure Source Blood Pressure Source [Right Arm] Automatic Cuff 02 Sat by Pulse Oximetry 98 93 L 95 Oxygen Delivery Method Room Air Room Air Room Air 10/15/24 11:00 10/15/24 11:30 10/15/24 12:01 Temperature Temperature Source Pulse Rate 95 H 94 H 105 H Pulse Rate [Right] Respiratory Rate Blood Pressure 112/60 131/76 143/57 H Blood Pressure [Right Arm] Blood Pressure Mean [Right Arm] Blood Pressure Source Blood Pressure Source [Right Arm] 02 Sat by Pulse Oximetry 94 L 100 100 Oxygen Delivery Method Room Air Room Air Room Air 10/15/24 12:30 10/15/24 13:01 10/15/24 13:30 Temperature Temperature Source Pulse Rate 91 H 95 H 89 Pulse Rate [Right] Respiratory Rate Blood Pressure 123/65 120/64 139/71 Blood Pressure [Right Arm] Blood Pressure Mean [Right Arm] Blood Pressure Source Blood Pressure Source [Right Arm] 02 Sat by Pulse Oximetry 95 97 97 Oxygen Delivery Method Room Air Room Air 10/15/24 15:09 Temperature 98.0 F Temperature Source Oral Pulse Rate 80 Pulse Rate [Right] Respiratory Rate 20 Blood Pressure 132/80 Blood Pressure [Right Arm] Blood Pressure Mean [Right Arm] Blood Pressure Source Automatic Cuff Blood Pressure Source [Right Arm] 02 Sat by Pulse Oximetry Oxygen Delivery Method Room Air Lab Data Lab Results 10/15/24 10:45: SARS-CoV-2 (PCR) Not detected, Influenza A Untype (PCR) Not detected, Influenza Type B (PCR) Not detected 10/15/24 11:25: WBC 24.5 H*, RBC 4.59, Hgb 13.5, Hct 40.3, MCV 87.8, MCH 29.4, MCHC 33.5, RDW 13.8, Plt Count 324, MPV 7.4, Neut % (Auto) 78.8, Lymph % (Auto) 13.2, Cochran % (Auto) 5.7, Eos % (Auto) 1.6, Baso % (Auto) 0.7, Neut # (Auto) 19.3 H, Lymph # (Auto) 3.2, Cochran # (Auto) 1.4 H, Eos # (Auto) 0.4, Baso # (Auto) 0.2, Total Counted 100, Neutrophils % (Manual) 75, Lymphocytes % (Manual) 13, M onocytes % (Manual) 10 H, Eosinophils % (Manual) 2, Platelet Estimate Normal, RBC Morphology Normal, Sodium 136, Potassium 3.6, Chloride 102, Carbon Dioxide 27, Anion Gap 10.6, BUN 22 H, Creatinine 0.90, Estimated Creat Clear 96, Estimated GFR 65, Est GFR ( Amer) 78, Glucose 93, Lactate 1.4, Calcium 8.8, Total Bilirubin 1.4 H, AST 26, ALT 19, Alkaline Phosphatase 75, Total Protein 7.0, Albumin 4.0, Globulin 3.0, Albumin/Globulin Ratio 1.3, Lipase 37, Procalcitonin 0.130 10/15/24 11:25 10/15/24 11:25 Orders (Tests/Meds): ED MEDICATIONS Discontinued Medications Generic Name Dose Route Start Last Admin Trade Name Freq PRN Reason Stop Dose Admin Albuterol/Ipratropium 3 ml 10/15/24 10:29 10/15/24 11:08 Ipratropium/Albuterol 3 Ml Neb IH 10/15/24 10:30 3 ml ONCE ONE Administration ORDERS Category Date Time Status XR chest 2V Stat Exams 10/15/24 10:29 Completed CBC w/Auto Diff [Complete Blood Count Auto Diff] Stat Lab 10/15/24 11:25 Completed CMP [Comprehensive Metabolic Panel] Stat Lab 10/15/24 11:25 Completed Lactic Acid Stat Lab 10/15/24 11:25 Completed Lipase Stat Lab 10/15/24 11:25 Completed Procalcitonin Stat Lab 10/15/24 11:25 Completed Rapid PCR Covid and Flu A/B Stat Lab 10/15/24 10:45 Completed Medical Decision Narrative: Patient with history and exam per above presenting for evaluation of respiratory infectious complaints Diagnoses considered include pneumonia, bronchitis, no clinical evidence to suggest ACS, nor PE ED workup and treatment included: ED MEDICATIONS Discontinued Medications Generic Name Dose Route Start Last Admin Trade Name Freq PRN Reason Stop Dose Admin Albuterol/Ipratropium 3 ml 10/15/24 10:29 10/15/24 11:08 Ipratropium/Albuterol 3 Ml Neb IH 10/15/24 10:30 3 ml ONCE ONE Administration ORDERS Category Date Time Status XR chest 2V Stat Exams 10/15/24 10:29 Completed CBC w/Auto Diff [Complete Blood Count Auto Diff] Stat Lab 10/15/24 11:25 Completed CMP [Comprehensive Metabolic Panel] Stat Lab 10/15/24 11:25 Completed Lactic Acid Stat Lab 10/15/24 11:25 Completed Lipase Stat Lab 10/15/24 11:25 Completed Procalcitonin Stat Lab 10/15/24 11:25 Completed Rapid PCR Covid and Flu A/B Stat Lab 10/15/24 10:45 Completed Labs were independently interpreted by me, significant for leukocytosis in the setting of recent steroid usage Imaging was independently visualized and interpreted by me, significant for no lobar consolidation Please refer to radiology report for full details. My clinical impression at this time is most consistent with concerns for community-acquired pneumonia, after shared decision making we will initiate course of antibiotics I discussed my clinical impression with patient and answered all questions. At this time, the evidence for any other entities in the differential is insufficient to warrant any further testing or ED observation. This was explained to the patient. The patient was advised that persistent or worsening symptoms require further evaluation. Critical Care Critical Care Time Critical Care Time: No
--- NOTE | 2024-10-15 10:29 | XR_ITS ---
FINAL REPORT CLINICAL HISTORY: Shortness of breath, cough COMPARISON: 07/31/2023 FINDINGS: Two views of the chest were obtained. The heart size and pulmonary vascularity are within normal limits. The mediastinum is normal. There is mild left base atelectasis or scarring. There is no pneumothorax. Postoperative changes are noted of the lower cervical spine. IMPRESSION: Left base atelectasis or scarring. Reviewed, Interpreted and Dictated by Edwin Hilton III, MD Transcribed by Lucretia Santiago Authenticated and [facility]
[2024-10-15 10:49] LABS: Coronavirus 19, PCR Not Detected (NotDetected); Influenza A, PCR Not Detected (NotDetected); Influenza B, PCR Not Detected (NotDetected)
[2024-10-15] MEDS: IPRATROPIUM/ALBUTEROL 3 ML NEB IH (11:08)
[2024-10-15 11:44] LABS: Alanine Aminotransferase 19 U/L (12-78); Albumin/Globulin Ratio 1.3 (1.1-1.8); Alkaline Phosphatase 75 U/L (38-126); Anion Gap 10.6 mEq/L (5-15); Aspartate Amino Transferase 26 U/L (14-36); Bilirubin,Total 1.4 mg/dl (0.2-1.3); Blood Urea Nitrogen 22 mg/dl (7-17); Calcium 8.8 mg/dl (8.4-10.2); Carbon Dioxide 27 mmol/L (22.0-30.0); Chloride 102 mmol/L (98-107); Creatinine Clearance Estimated 96 mL/min (50-200); Estimated Glomerular Filt Rate 65 ml/min (>60); GFR (African American) 78 ML/MIN (>60); Glucose 93 mg/dl (74-100); Lipase 37 U/L (23-300); Potassium 3.6 mmoL/L (3.5-5.1); Sodium 136 mmol/L (136-145)
[2024-10-15 11:57] LABS: Basophils # 0.2 K/mm3 (0-0.2); Basophils % 0.7 % (0.1-2.0); Eosinophils # 0.4 K/mm3 (0.0-0.4); Eosinophils % 1.6 % (0.1-12.0); Hematocrit 40.3 % (37.0-47.0); Hemoglobin 13.5 g/dL (12.2-16.2); Lymphocytes # 3.2 K/mm3 (0.7-4.5); Lymphocytes % 13.2 % (10-50); Mean Corpuscular HGB Conc 33.5 g/dL (31.8-35.4); Mean Corpuscular Hemoglobin 29.4 pg (27.0-31.2); Mean Corpuscular Volume 87.8 fl (81-99); Mean Platelet Volume 7.4 fl (7.4-10.4); Monocytes # 1.4 K/mm3 (0.1-1.0); Monocytes % 5.7 % (1.7-9.3); Neutrophils # 19.3 K/mm3 (1.8-7.8); Neutrophils % 78.8 % (37.0-80.0); Platelet Count 324 K/mm3 (142-424); Red Blood Count 4.59 M/mm3 (4.20-5.40); Red Cell Distribution Width 13.8 % (11.5-17.5); White Blood Count 24.5 K/mm3 (4.8-10.8)
[2024-10-15 12:03] LABS: MANUAL DIFFERENTIAL MANUAL DIFFERENTIAL (MANUAL DIFF)
[2024-10-15 12:12] LABS: Eosinophils % 2 % (0-3); Lymphocytes % 13 % (10-50); Monocytes % 10 % (2-9); Neutrophils % 75 % (42-76); Platelet Estimate Normal; RBC Morphology Normal; Total Cells Counted 100
[2024-10-15 12:13] LABS: Lactic Acid 1.4 mmol/L (0.7-2.1)
--- NOTE | 2024-10-15 12:26 | PC.NURSE ---
rounded on pt no needs at this time call light in reach
== END 2024-10-15 15:10 | disposition home or self-care (01) ==
PROVIDERS: Emergency Provider Emergency Medicine; PCP Family Medicine
DX: J18.9 Pneumonia, unspecified organism (principal); R06.02 Shortness of breath; R05.9 Cough, unspecified
CPT/HCPCS: 71046; 80053; 83605; 83690; 84145; 85007; 85025; 85027; 87636; 99283; J7620

== ENCOUNTER 2025-01-05 09:00 | Inpatient (IN) | payer MEDICARE, BC, SELFPAY ==
[2025-01-05] VITALS (12 sets, daily range): BP systolic 108–155; BP diastolic 48–73; PULSE 102–138; RESP 11–26; TEMP 36.8–37.8; O2SAT 96–100; BMI 33.7; BMI 33.5
--- NOTE | 2025-01-05 09:00 | ECG_ITS ---
APPROVED REPORT Exam: Resting ECG HR:118 bpm ECG Measurements Heart Rate 118 AXES OR 130 P 68 QRSd 80 QRS 72 QT 334 T 65 QTc 404 Conclusion Sinus tachycardia Electronically signed by : TRAE REESE, 01/05/2025 14:45:39
--- NOTE | 2025-01-05 09:05 | XR_ITS ---
FINAL REPORT CLINICAL HISTORY: soa cough COMPARISON: 10/15/2024 FINDINGS: CHEST 2 VIEWS PA AND LATERAL The heart is normal in size. The mediastinum is unremarkable. The lungs are clear. There is no pneumothorax. IMPRESSION: No acute process. Reviewed, Interpreted and Dictated by Mau Rose MD Transcribed by Annamarie Barillas Authenticated and [facility]
[2025-01-05 09:11] LABS: Coronavirus 19, PCR Not Detected (NotDetected); Influenza A, PCR Not Detected (NotDetected); Influenza B, PCR Not Detected (NotDetected)
--- NOTE | 2025-01-05 09:22 | ED_ITS ---
Discharge Plan Disposition Patient Disposition: Admitted Chief Complaint: Shortness of Breath/Dyspnea Prescriptions Prescriptions: No Action fluticasone propionate 50 mcg/actuation spray,suspension 50 mcg intranasal DAILY Patient Comments: USE 2 SPRAY(S) IN EACH NOSTRIL ONCE DAILY montelukast 10 mg tablet 10 mg PO DAILY atorvastatin 40 mg tablet 40 mg PO DAILY meloxicam 15 mg tablet 15 mg PO DAILY budesonide-formoterol [Symbicort] 160-4.5 mcg/actuation HFA aerosol inhaler 2 puff inhalation BID 90 Days Qty: 10.2 2RF fluoxetine 10 mg capsule 10 mg PO DAILY Airsupra 90-80 mcg/actuation HFA aerosol inhaler 2 inh inhalation .q6 PRN (Reason: shortness of breath or wheezing) Qty: 10.7 3RF azelastine [Astepro Allergy] 205.5 mcg (0.15 %) spray,non-aerosol 2 spray intranasal HS 90 Days Qty: 30 3RF Rx Instructions: administer into each nostril ipratropium-albuterol 0.5 mg-3 mg(2.5 mg base)/3 mL solution for nebulization 3 ml inhalation Q6H PRN (Reason: wheezing) Qty: 180 2RF Rx Instructions: Medicare part B drug coverage hydrocodone-acetaminophen 7.5-325 mg tablet 1 tab PO TID pregabalin 50 mg capsule 50 mg PO DAILY triamcinolone acetonide 0.1 % paste 1 applic dental BID 7 Days Qty: 5 0RF Rx Instructions: use after food and/or drink and/or oral hygiene Referrals Follow up/Referrals: Provider,Referral, MD [Referring] - See instructions Clinical Impressions Clinical Impression: Sepsis Print Language Print Language: Chinese Discharge ED Provider: Aroldo Curran HPI General Chief Complaint: Shortness of Breath/Dyspnea Stated Complaint: SOA Time Seen by Provider: 01/05/25 09:03 Mode of Arrival: EMS Source of Information: Patient Description of Symptoms (Recalled from ER Triage Doc. by RN): woke up soa worse than normal, took a duoneb at 0230, then was given one via ems, pt is anxious and hyperventilating upon triage History of Present Illness HPI narrative: Please note that above description of symptoms, in this electronic medical record under categorization of recalled from ER triage doctor by RN are reflective of an initial nursing assessment, however, is not reflective of my full history and physical exam that was personally taken and clarified. Consequentially, this preceding description of symptoms, which may include the patient's categorized chief complaint in the EMR, do not reflect my personal clinical impression, and the ultimate description of history of present illness and patient stated complaints should be deferred to this section of the note. Unless stated otherwise or congruent with this section of the note, additional signs, symptoms, or incongruence should be interpreted as inaccurate with my clinical impression. Related Data Home Medications ?Medication ?Instructions ?Recorded ?Confirmed hydrocodone 7.5 mg-acetaminophen 1 tab PO TID 07/20/24 01/05/25 325 mg tablet pregabalin 50 mg capsule 50 mg PO DAILY 07/20/24 01/05/25 atorvastatin 40 mg tablet 40 mg PO DAILY 10/22/24 01/05/25 fluticasone propionate 50 50 mcg intranasal DAILY 10/22/24 01/05/25 mcg/actuation nasal spray,suspension meloxicam 15 mg tablet 15 mg PO DAILY 10/22/24 01/05/25 montelukast 10 mg tablet 10 mg PO DAILY 10/22/24 01/05/25 fluoxetine 10 mg capsule 10 mg PO DAILY 12/30/24 01/05/25 Previous Rx's ?Medication ?Instructions ?Recorded triamcinolone acetonide 0.1 % 1 applic dental BID 7 days #5 grams 07/20/24 dental paste budesonide-formoterol HFA 160 2 puff inhalation BID 90 days 10/22/24 mcg-4.5 mcg/actuation aerosol #10.2 grams inhaler (Symbicort) ipratropium 0.5 mg-albuterol 3 mg 3 ml inhalation Q6H PRN wheezing 12/17/24 (2.5 mg base)/3 mL nebulization #180 mL soln albuterol 90 mcg-budesonide 80 2 inh inhalation .q6 PRN shortness 12/30/24 mcg/actuation HFA aerosol inhaler of breath or wheezing #10.7 grams (Airsupra) azelastine 205.5 mcg (0.15 %) 2 spray intranasal HS 90 days #30 12/30/24 nasal spray (Astepro Allergy) mL Allergies Allergy/AdvReac Type Severity Reaction Status Date / Time Penicillins Allergy Mild Unknown Verified 01/05/25 12:10 allergy reaction Sulfa (Sulfonamide Allergy Hives Verified 01/05/25 12:10 Antibiotics) codeine AdvReac Vomiting Verified 01/05/25 12:10 [facility] Disclaimer: The information contained in this section may have been updated after the patient was seen, as this information can be updated by other users. Medical History Chronic neck pain Bronchitis Shortness of Breath Cough Pneumonia Febrile illness, acute Body aches Acute dyspnea Allergic rhinitis Dyspnea on exertion Abnormal EEG Fibroids Endometriosis Surgical History H/O breast augmentation History of appendectomy H/O nasal septoplasty Hx of cholecystectomy History of dilation and curettage multiple H/O laparoscopy Family History Other Asthma Coronary artery disease Heart attack Social History Smoking Status: Former smoker alcohol intake: former substance use type: denies use current occupational status: retired Travel in the last 8 weeks: None household members: spouse housing: house marital status: caffeine: No Have you lived/traveled outside [place] in past 30 days?: No Contact w/someone who lives/traveled outside US past 30 days?: No Exposure to someone with infectious disease in past 14 days?: No Do you have a fever (greater than 100.4 F or 38 C)?: No Have you tested positive for COVID-19: No Exposed to someone with COVID-19 in past 14 days?: No Do you have a sore throat?: No Do you have a cough?: No Do you have any weakness?: No Do you have any diarrhea?: No Are you experiencing any unusual bleeding?: No Do you have any muscle aches/pain?: No Do you have any abdominal pain?: No Are you experiencing loss of taste or smell?: No Other Medical History Have you received the Flu Vaccine for this season: No Have you received the Pneumonia Vaccine: Yes ROS Obtained: Yes All systems reviewed & no additional complaints except as documented Physical Exam General General appearance: alert, in no apparent distress and anxious (Patient appears to be hyperventilating, but speaking in full sentences) Neck Neck exam: Present trachea midline Chest Chest inspection: Present normal inspection and symmetric chest wall rise Respiratory Respiratory exam: Present normal lung sounds bilaterally and other (Mildly tachypneic 22 breaths/min. Speaking in full sentences); Absent respiratory distress, wheezes, stridor, accessory muscle use or prolonged expiratory phase Cardiovascular Cardiovascular exam: Present normal rhythm, tachycardia and other (Pulses equal and symmetric in upper and lower extremities) Extremities Exam Extremities exam: Absent edema Neurological Exam Neurological exam: Present alert, oriented X3 and CN II-XII intact Skin Skin exam: Present warm and dry; Absent cyanosis, diaphoresis or pallor HEART Score HEART Score HEART Score assessment performed?: Yes HEART Score: 3 Critical Care Critical Care Time Critical Care Time: Yes (sepsis) Attestation: On 01/05/25, the high probability of a clinically significant, sudden or life threatening deterioration of the following system(s) required my full and direct attention, intervention and personal management. The time I documented below is in addition to time spent performing reported procedures but includes the following listed in this critical care notation. Total Time Total Critical Care Time: 35 Medical Decision Making Medical Records Medical records reviewed: Yes I reviewed the patient's medical records. [place] Inquiry Pt receiving controlled substance: No [place] was queried for this patient: No Vital Signs Vital Signs: 01/05/25 09:00 01/05/25 09:41 01/05/25 10:00 Temperature 99.6 F Temperature Source Oral Pulse Rate 114 H 138 H Pulse Rate [Left Radial] 115 H Respiratory Rate 20 14 15 Blood Pressure 125/67 119/73 Blood Pressure [Right Arm] 155/67 H Blood Pressure Mean [Right Arm] 96 02 Sat by Pulse Oximetry 100 98 97 Oxygen Delivery Method Room Air Room Air Room Air 01/05/25 10:22 01/05/25 10:30 01/05/25 10:39 Temperature Temperature Source Pulse Rate 102 H 109 H 105 H Pulse Rate [Left Radial] Respiratory Rate 11 L Blood Pressure 127/56 L Blood Pressure [Right Arm] Blood Pressure Mean [Right Arm] 02 Sat by Pulse Oximetry 100 Oxygen Delivery Method Room Air 01/05/25 11:00 01/05/25 11:30 Temperature Temperature Source Pulse Rate 120 H 114 H Pulse Rate [Left Radial] Respiratory Rate 26 H 13 Blood Pressure 133/63 134/66 Blood Pressure [Right Arm] Blood Pressure Mean [Right Arm] 02 Sat by Pulse Oximetry 97 97 Oxygen Delivery Method Room Air Room Air Lab Data Labs: Lab Results 01/05/25 09:00: SARS-CoV-2 (PCR) Not detected, Influenza A Untype (PCR) Not detected, Influenza Type B (PCR) Not detected 01/05/25 09:06: VBG pH 7.54 H, VBG pCO2 24.2 L, VBG pO2 41.6 H, VBG HCO3 20.4 L, VBG Total CO2 21.2 L, VBG O2 Saturation 84.1 H, VBG Base Excess -2.1, VBG Lactic Acid 3.3 H 01/05/25 09:40: WBC 16.5 H, RBC 4.41, Hgb 12.9, Hct 37.8, MCV 85.7, MCH 29.3, MCHC 34.1, RDW 12.3, Plt Count 278, MPV 9.4, Neut % (Auto) 81.7 H, Lymph % (Auto) 7.2 L, [place] % (Auto) 9.9 H, Eos % (Auto) 0.4, Baso % (Auto) 0.4, Neut # (Auto) 13.5 H, Lymph # (Auto) 1.2, [place] # (Auto) 1.6 H, Eos # (Auto) 0.1, Baso # (Auto) 0.1, Total Counted 100, Neutrophils % (Manual) 77 H, Lymphocytes % (Manual) 18, Monocytes % (Manual) 5, Platelet Estimate Normal, RBC Morphology Normal, PT 9.9, INR 0.89 L, APTT 23.0, D-Dimer < 0.25, Sodium 139, Potassium 3.7, Chloride 105, Carbon Dioxide 22, Anion Gap 15.7 H, BUN 8, Creatinine 0.70, Estimated Creat Clear 125, Estimated GFR 86, Est GFR ( Amer) 104, Glucose 129 H, Calcium 9.7, Magnesium 1.5 L, Total Bilirubin 1.0, AST 30, ALT 29, Alkaline Phosphatase 79, Troponin I < 0.01, NT-Pro-B Natriuret Pep < 20.0, Total Protein 7.9, Albumin 4.8, Globulin 3.1, Albumin/Globulin Ratio 1.5, TSH 0.91, T hyroxine (T4) 12.2 H 01/05/25 09:40 01/05/25 09:40 Response Orders (Tests/Meds): ED MEDICATIONS Generic Name Dose Route Start Last Admin Trade Name Freq PRN Reason Stop Dose Admin Vancomycin/PEG/NADA/Lysine/Water 1.75 gm in 350 mls @ 175 mls/hr 01/05/25 10:30 01/05/25 11:07 Vancomycin 1.75gm/350ml (Peg) Premix IV 01/05/25 12:29 175 mls/hr ONCE ONE Administration Discontinued Medications Generic Name Dose Route Start Last Admin Trade Name Freq PRN Reason Stop Dose Admin Albuterol/Ipratropium 9 ml 01/05/25 09:05 01/05/25 10:19 Ipratropium/Albuterol 3 Ml Neb IH 01/05/25 09:06 9 ml ONCE ONE Administration Aspirin 324 mg 01/05/25 09:05 01/05/25 09:52 Aspirin 81mg Chewable Tablet PO 01/05/25 09:06 324 mg ONCE ONE Administration Lactated Ringer's 1,000 mls @ 999 mls/hr 01/05/25 09:13 01/05/25 09:52 Lactated Ringer's 1000 Ml Bag IV 01/05/25 10:13 999 mls/hr .Q1H1M ONE Administration Cefepime HCl 2 gm/ Sodium 100 mls @ 200 mls/hr 01/05/25 10:25 01/05/25 10:36 Chloride IV 01/05/25 10:54 200 mls/hr ONCE ONE Administration Methylprednisolone Sodium Succinate 125 mg 01/05/25 09:05 01/05/25 09:55 Methylprednisolone Sod Succ 125mg Vial IV 01/05/25 09:06 125 mg ONCE ONE Administration Miscellaneous 1 each 01/05/25 10:30 Vancomycin Consult Request NOTAPPLIC 02/04/25 10:29 CONSULT PHARMACY VIVIAN ORDERS Category Date Time Status Pulmonology Consult [Consult to Pulmonology] [CONS] Cons 01/05/25 11:52 Active Routine XR chest portable Stat Exams 01/05/25 09:05 Completed Complete Blood Count Auto Diff AMLAB Lab 01/06/25 06:00 Ordered Complete Blood Count Auto Diff Stat Lab 01/05/25 09:40 Completed Comprehensive Metabolic Panel AMLAB Lab 01/06/25 06:00 Ordered Comprehensive Metabolic Panel Stat Lab 01/05/25 09:40 Completed D-Dimer Stat Lab 01/05/25 09:40 Completed Full Resp Panel w/COVID ([facility]) Routine Lab 01/05/25 09:00 Received Magnesium AMLAB Lab 01/06/25 06:00 Ordered Magnesium Stat Lab 01/05/25 09:40 Completed NT Pro Brain Natriuretic Pep. Stat Lab 01/05/25 09:40 Completed PT INR [Prothrombin Time INR] Stat Lab 01/05/25 09:40 Completed PTT [Activated Partial Thrombo Time] Stat Lab 01/05/25 09:40 Completed Rapid PCR Covid and Flu A/B Stat Lab 01/05/25 09:00 Completed T4 (Thyroxine) Stat Lab 01/05/25 09:40 Completed TSH [Thyroid Stimulating Hormone] Stat Lab 01/05/25 09:40 Completed Troponin I Q3H Lab 01/05/25 12:03 Received Troponin I Q3H Lab 01/05/25 15:15 Ordered Troponin I Stat Lab 01/05/25 09:40 Completed Blood Culture Stat Micro 01/05/25 09:40 Received Venous Blood Gas Stat RT 01/05/25 09:06 Completed MDM Narrative Medical Decision Narrative: 59-year-old female history of hypertension, hyperlipidemia, chronic bronchitis, asthma, MARY following with pulmonology presenting with shortness of breath. Patient states that she has felt unwell for the last few days. Cough that is productive, but she is unable to characterize the sputum, she has been feeling chilled, no objective fevers were measured. States that she started feeling worsening short of breath this morning, so came into the emergency department. No DVT or PE risk factors not on anticoagulation, no chest pain, lower extremity swelling, or any other concerns. She does state that she is taken all of her inhalers and these of not seem to help. History was obtained via conversation with patient. On arrival, patient hemodynamically stable, alert, oriented x4, appropriate, GCS 15, moving all extremities spontaneously, pupils equal and reactive to light. Full physical exam performed and significant for 59-year-old female who appears anxious and is hyperventilating. Speaking full sentences. Lungs are clear anteriorly and posteriorly bilaterally. Cardiac exam with no murmurs gallops or rubs. Pulses equal and symmetric in upper and lower extremities. No lower extremity edema. Differential includes pneumonia, bronchitis, PE, pneumothorax, CHF, ACS, NE, among others. Patient was given aspirin, DuoNebs, Solu-Medrol for symptomatic management and correction of underlying abnormalities. Patient placed on continuous cardiac monitoring and continuous pulse ox with initial blood pressure 155/67, heart rate 115, saturation 100% on room air. Independent interpretation of EKG shows sinus tachycardia 118 bpm with no acute ischemic changes. CO interval 130, QRS 80, QTc 404. Normal axis. Workup independently interpreted and significant for leukocytosis 16,000 with neutrophilia. VBG with metabolic acidosis with respiratory alkalosis 7.54, CO2 low at 24, bicarb low at 20 with lactate of 3.3. Given leukocytosis and lactate, patient was started on empiric antibiotics.. On independent interpretation of imaging, no acute intrathoracic process. See radiology read for full review of final results. On reevaluation, patient states that she is still feeling poorly. Repeat perfusion exam still normal, tolerating p.o. intake, mentating appropriately. She is still tachycardic. Given patient presentation, workup, history, this most likely represents early sepsis. I contacted hospitalist and patient to be admitted to clear blood cultures. [employer] disclaimer Much of this encounter note is an electronic urgent care nurse practitioner spoken language to printed text. Electronic urgent care nurse practitioner of the spoken language may permit errors. Although I have reviewed the note, some errors may still exist.
[2025-01-05 09:52] LABS: VBG Base Excess -2.1 mmol/L (-2.4-2.3); VBG HCO3 20.4 mmol/L (23-30); VBG Oxygen Saturation 84.1 % (50-70); VBG PH 7.54 mmol/L (7.31-7.41); VBG PO2 41.6 mmol/L (28-40); VBG Total CO2 21.2 mmol/L (23-27)
[2025-01-05] MEDS: LACTATED RINGERS 1000ML 1,000 ML 999 ML IV (09:52)
[2025-01-05] MEDS: ASPIRIN 81MG CHEWABLE TABLET 324 MG PO (09:52)
[2025-01-05 09:54] LABS: Lactate Venous 3.3 mmol/L (0.4-2.0); VBG PCO2 24.2 mmol/L (35-51)
[2025-01-05 09:54] LABS: Basophils # 0.1 K/mm3 (0-0.2); Basophils % 0.4 % (0.1-2.0); Eosinophils # 0.1 K/mm3 (0.0-0.4); Eosinophils % 0.4 % (0.1-12.0); Hematocrit 37.8 % (37.0-47.0); Hemoglobin 12.9 g/dL (12.2-16.2); Lymphocytes # 1.2 K/mm3 (0.7-4.5); Lymphocytes % 7.2 % (10-50); Mean Corpuscular HGB Conc 34.1 g/dL (31.8-35.4); Mean Corpuscular Hemoglobin 29.3 pg (27.0-31.2); Mean Corpuscular Volume 85.7 fl (81-99); Mean Platelet Volume 9.4 fl (7.4-10.4); Monocytes # 1.6 K/mm3 (0.1-1.0); Monocytes % 9.9 % (1.7-9.3); Neutrophils # 13.5 K/mm3 (1.8-7.8); Neutrophils % 81.7 % (37.0-80.0); Platelet Count 278 K/mm3 (142-424); Red Blood Count 4.41 M/mm3 (4.20-5.40); Red Cell Distribution Width 12.3 % (11.5-17.5); White Blood Count 16.5 K/mm3 (4.8-10.8)
[2025-01-05] MEDS: METHYLPREDNISOLONE SOD SUCC 125MG VIAL 125 MG IV (09:55)
[2025-01-05 10:07] LABS: Albumin Level 4.8 g/dl (3.5-5.0); Chloride 105 mmol/L (98-107)
[2025-01-05 10:08] LABS: Potassium 3.7 mmoL/L (3.5-5.1); Sodium 139 mmol/L (136-145)
[2025-01-05 10:09] LABS: INR 0.89 (0.9-1.1); Prothrombin Time 9.9 seconds (9.2-12.1)
[2025-01-05 10:10] LABS: Alanine Aminotransferase 29 U/L (12-78); Anion Gap 15.7 mEq/L (5-15); Aspartate Amino Transferase 30 U/L (14-36); Blood Urea Nitrogen 8 mg/dl (7-17); Carbon Dioxide 22 mmol/L (22.0-30.0); Creatinine Clearance Estimated 125 mL/min (50-200); Estimated Glomerular Filt Rate 86 ml/min (>60); GFR (African American) 104 ML/MIN (>60); Magnesium 1.5 mg/dl (1.6-2.3)
[2025-01-05 10:11] LABS: Albumin/Globulin Ratio 1.5 (1.1-1.8); Alkaline Phosphatase 79 U/L (38-126); Calcium 9.7 mg/dl (8.4-10.2); Globulin 3.1 g/dL (1.3-3.2); Glucose 129 mg/dl (74-100); Total Protein,Serum 7.9 g/dl (6.3-8.2)
[2025-01-05 10:19] LABS: MANUAL DIFFERENTIAL MANUAL DIFFERENTIAL (MANUAL DIFF); NT Pro Brain Natriuretic Pep. < 20.0 pg/mL (0-125)
[2025-01-05] MEDS: IPRATROPIUM/ALBUTEROL 3 ML NEB 9 ML IH (10:19)
[2025-01-05 10:23] LABS: Troponin I < 0.01 ng/ml (0.00-0.034)
[2025-01-05 10:28] LABS: T4 (Thyroxine) 12.2 ug/dl (5.53-11.0)
[2025-01-05] MEDS: CEFEPIME HCL 2 GM in 0.9 % SODIUM CHLORIDE 100 ML IV (10:36)
[2025-01-05 10:41] LABS: Thyroid Stimulating Hormone 0.91 uIU/mL (0.465-4.68)
[2025-01-05 10:48] LABS: Lymphocytes % 18 % (10-50); Monocytes % 5 % (2-9); Neutrophils % 77 % (42-76); Platelet Estimate Normal; RBC Morphology Normal; Total Cells Counted 100
[2025-01-05 10:49] LABS: D-Dimer < 0.25 ug/mL (0.0-0.5)
--- NOTE | 2025-01-05 11:00 | PC.NURSE ---
speaking with hospitalist
[2025-01-05] MEDS: VANCOMYCIN/WATER FOR INJ (PEG) 1.75 GM/350 ML PIGGYBACK IV (11:07)
--- NOTE | 2025-01-05 11:50 | PC.NURSE ---
DR REESE SPEAKING WITH DR LEO FOR ADMISSION
[2025-01-05 11:57] LABS: Adenovirus,PCR Not Detected (NotDetected); Bordetella Pertussis Not Detected (NotDetected); Chlamydophila Pneumoniae, PCR Not Detected (NotDetected); Coronavirus 19, PCR Not Detected (NotDetected); Coronavirus 229E Not Detected (NotDetected); Coronavirus NL63 Not Detected (NotDetected); Coronavirus OC43 Not Detected (NotDetected); Coronovirus HKU1,PCR Not Detected (NotDetected); Human Metapneumovirus Not Detected (NotDetected); Influenza A, PCR Not Detected (NotDetected); Influenza AH1, 2009 Not Detected (NotDetected); Influenza AH1, PCR Not Detected (NotDetected); Influenza AH3,PCR Not Detected (NotDetected); Influenza B, PCR Not Detected (NotDetected); Mycoplasma Pneumoniae, PCR Not Detected (NotDetected); Parainfluenza 1, PCR Not Detected (NotDetected); Parainfluenza 2, PCR Not Detected (NotDetected); Parainfluenza 3, PCR Not Detected (NotDetected); Parainfluenza 4, PCR Not Detected (NotDetected); Respiratory Syncytial Virus Not Detected (NotDetected)
--- NOTE | 2025-01-05 11:58 | PC.NURSE ---
BRIEFCASE SEWER NOTIFIED OF ADMISSION
--- NOTE | 2025-01-05 12:04 | PC.NURSE ---
2nd Troponin sent to lab.
--- NOTE | 2025-01-05 12:13 | PC.NURSE ---
Lunch tray was provided to the Pt.
--- NOTE | 2025-01-05 12:38 | PC.NURSE ---
called report to sangeeta todd
[2025-01-05 12:39] LABS: Troponin I 0.01 ng/ml (0.00-0.034)
--- NOTE | 2025-01-05 13:02 | PC.NURSE ---
arrived by w/c from ED
[2025-01-05 13:40] LABS: Rhinovirus/Enterovirus Detected (NotDetected)
--- NOTE | 2025-01-05 13:52 | PC.NURSE ---
Patient informed that Medicare will not pay for home medications. States all she has are her lyrica, norco and inhalers. Controlled substances sent home with sister Oliva
[2025-01-05 13:55] LABS: Reflex Lactic Add Lactic Reflex
--- NOTE | 2025-01-05 14:41 | [facility].PHAINT1 ---
Pharmacy Intervention Comments: MEDICATION RECONCILIATION COMPLETE USING EXTERNAL PHARMACY FILL HISTORY, BLAKE REPORT, AND RECENT PULMONOLOGY OFFICE VISIT NOTE.
[2025-01-05 15:00] LABS: Lactic Acid Follow Up (RFLX 1) 3.1 mmol/L (0.7-2.1)
--- NOTE | 2025-01-05 15:13 | PC.NURSE ---
Dr. Roberts notified of patient's positive entero/rhinovirus result. Patient placed in appropriate precautions and educated provided regarding isolation and precautions
--- NOTE | 2025-01-05 15:49 | PC.NURSE ---
Patient alert and oriented. VSS. On room air. Up ad wyatt to BR for voids. Tolerating oral intake. Contact/Droplet precautions for entero/rhino virus. Sister at bedside throughout afternoon.
--- NOTE | 2025-01-05 16:03 | EXP.HP ---
History of Present Illness *Admission Date: 01/05/25 *Reason for visit:: Dyspnea, weakness *History of present illness: Ms. Barr is a 59-year-old female who presents with 4 to 5 days of weakness, cough, shortness of breath. She denies chest pain. States she is feeling very weak and dyspneic however. Came to the ER because of her shortness of breath. Found to be tachycardic, tachypneic with leukocytosis. Meeting criteria for sepsis. States she has had sepsis before and went into shock and is very concerned about her current state. Uses inhalers for bronchitis/COPD. Follows with pulmonology. White count elevated at 16. Given her tachycardia, sepsis criteria, unknown source, medicine consulted for admission and further management. Initiated on broad-spectrum antibiotics. Upon arrival to the floor, patient's comprehensive panel returned positive for rhino/enterovirus. Requesting Mucinex to help clear her secretions. Weaned to room air by the time of arrival to the floor. Blood pressure remains normal at 128/52. Afebrile at this time. Temperature of 100.0. Anxious but alert and oriented x 4 PFSH [facility] Disclaimer: The information contained in this section may have been updated after the patient was seen, as this information can be updated by other users. Medical History Chronic neck pain Bronchitis Shortness of Breath Cough Pneumonia Febrile illness, acute Body aches Acute dyspnea Allergic rhinitis Dyspnea on exertion Abnormal EEG Fibroids Endometriosis Surgical History H/O breast augmentation History of appendectomy H/O nasal septoplasty Hx of cholecystectomy History of dilation and curettage H/O laparoscopy Family History Coronary artery disease Heart attack Asthma Social History Smoking Status: Never smoker alcohol intake: former substance use type: denies use current occupational status: retired Travel in the last 8 weeks: None household members: spouse housing: house marital status: caffeine: No Have you lived/traveled outside [place] in past 30 days?: No Contact w/someone who lives/traveled outside [place] past 30 days?: No Exposure to someone with infectious disease in past 14 days?: No Do you have a fever (greater than 100.4 F or 38 C)?: No Have you tested positive for COVID-19: No Exposed to someone with COVID-19 in past 14 days?: No Do you have a sore throat?: No Do you have a cough?: No Do you have any weakness?: No Do you have any diarrhea?: No Are you experiencing any unusual bleeding?: No Do you have any muscle aches/pain?: No Do you have any abdominal pain?: No Are you experiencing loss of taste or smell?: No Other Medical History Have you received the Flu Vaccine for this season: No Have you received the Pneumonia Vaccine: No Review of Systems Review of Systems Review of systems (narrative): 14 point review of systems performed, pertinent positives and negatives as per HPI Meds Home Medications and Allergies Home Medications ?Medication ?Instructions ?Recorded ?Confirmed ?Type hydrocodone 7.5 mg-acetaminophen 1 tab PO TID 07/20/24 01/05/25 History 325 mg tablet pregabalin 50 mg capsule 50 mg PO TIDP PRN Moderate Pain 07/20/24 01/05/25 History (Scale Score 5-6) atorvastatin 40 mg tablet 40 mg PO HS 10/22/24 01/05/25 History fluticasone propionate 50 2 spray intranasal DAILY 10/22/24 01/05/25 History mcg/actuation nasal spray,suspension meloxicam 15 mg tablet 15 mg PO DAILY 10/22/24 01/05/25 History montelukast 10 mg tablet 10 mg PO PM 10/22/24 01/05/25 History azelastine 205.5 mcg (0.15 %) 2 spray intranasal HS 90 days #30 12/30/24 01/05/25 Rx nasal spray (Astepro Allergy) mL fluoxetine 10 mg capsule 10 mg PO DAILY 12/30/24 01/05/25 History albuterol 90 mcg-budesonide 80 2 inh inhalation Q6HP PRN 01/05/25 01/05/25 History mcg/actuation HFA aerosol inhaler shortness of breath or wheezing (Airsupra) budesonide-formoterol HFA 160 2 puff inhalation BIDRT 01/05/25 01/05/25 History mcg-4.5 mcg/actuation aerosol inhaler (Symbicort) ipratropium 0.5 mg-albuterol 3 mg 3 ml inhalation Q6HP PRN wheezing 01/05/25 01/05/25 History (2.5 mg base)/3 mL nebulization soln New Prescriptions to Start Prescriptions: Allergies Allergy/AdvReac Type Severity Reaction Status Date / Time Penicillins Allergy Mild Unknown Verified 01/05/25 12:10 allergy reaction Sulfa (Sulfonamide Allergy Hives Verified 01/05/25 12:10 Antibiotics) codeine AdvReac Vomiting Verified 01/05/25 12:10 Exam Data for Last 24 hours Vital signs and Labs for Last 24 Hours: Temp Pulse Resp BP Pulse Ox O2 Del Method 100.0 F H 106 H 20 128/52 L 97 Room Air 01/05/25 13:02 01/05/25 13:02 01/05/25 13:02 01/05/25 13:02 01/05/25 13:02 01/05/25 15:00 Laboratory Results - last 24 hr 01/05/25 09:00: Chlamy pneumoniae PCR Not detected, Adenovirus (PCR) Not detected, B. pertussis DNA (PCR) Not detected, Coronavirus OC43 (PCR) Not detected, Coronavirus HKU1 (PCR) Not detected, Coronavirus 229E (PCR) Not detected, SARS-CoV-2 (PCR) Not detected 01/05/25 09:00: SARS-CoV-2 (PCR) Not detected, Coronavirus NL63 (PCR) Not detected, Human Metapneumovir PCR Not detected, Influenza A (H1) PCR Not detected, Influ A (H1N1/09) PCR Not detected, Influenza A (H3) PCR Not detected, Influenza Type A (PCR) Not detected, Influenza A Untype (PCR) Not detected, Influenza Type B (PCR) Not detected 01/05/25 09:00: Influenza Type B (PCR) Not detected, M. pneumoniae (PCR) Not detected, Parainfluenza 1 (PCR) Not detected, Parainfluenza 2 (PCR) Not detected, Parainfluenza 3 (PCR) Not detected, Parainfluenza 4 (PCR) Not detected, RSV (PCR) Not detected, Entero/Rhino (PCR) Detected A 01/05/25 09:06: VBG pH 7.54 H, VBG pCO2 24.2 L, VBG pO2 41.6 H, VBG HCO3 20.4 L, VBG Total CO2 21.2 L, VBG O2 Saturation 84.1 H, VBG Base Excess -2.1, VBG Lactic Acid 3.3 H 01/05/25 09:40: WBC 16.5 H, RBC 4.41, Hgb 12.9, Hct 37.8, MCV 85.7, MCH 29.3, MCHC 34.1, RDW 12.3, Plt Count 278, MPV 9.4, Neut % (Auto) 81.7 H, Lymph % (Auto) 7.2 L, [place] % (Auto) 9.9 H, Eos % (Auto) 0.4, Baso % (Auto) 0.4, Neut # (Auto) 13.5 H, Lymph # (Auto) 1.2, [place] # (Auto) 1.6 H, Eos # (Auto) 0.1, Baso # (Auto) 0.1, Total Counted 100, Neutrophils % (Manual) 77 H, Lymphocytes % (Manual) 18, Monocytes % (Manual) 5, Platelet Estimate Normal, RBC Morphology Normal, PT 9.9, INR 0.89 L, APTT 23.0, D-Dimer < 0.25, Sodium 139, Potassium 3.7, Chloride 105, Carbon Dioxide 22, Anion Gap 15.7 H, BUN 8, Creatinine 0.70, Estimated Creat Clear 125, Estimated GFR 86, Est GFR ( Amer) 104, Glucose 129 H, Calcium 9.7, Magnesium 1.5 L, Total Bilirubin 1.0, AST 30, ALT 29, Alkaline Phosphatase 79, Troponin I < 0.01, NT-Pro-B Natriuret Pep < 20.0, Total Protein 7.9, Albumin 4.8, Globulin 3.1, Albumin/Globulin Ratio 1.5, TSH 0.91, Thyroxine (T4) 12.2 H 01/05/25 12:03: Troponin I 0.01 01/05/25 14:26: Lactate 3.1 H I & O for Last 24 hours: Intake & Output 01/02/25 01/03/25 01/04/25 01/05/25 23:59 23:59 23:59 23:59 Intake Total 480 / 480 Output Total 0 / 0 Balance 480 / 480 Weight 88.6 kg Constitutional Constitutional: mild distress, obese, chronically ill appearing and cooperative *Routine HEENT Exam Head: Present normocephalic Eye: Present EOMI and PERRL ENT: Present mucous membranes moist *Routine Neck Exam Neck: Present supple; Absent lymphadenopathy *Routine Respiratory Exam Respiratory: Present prolonged expiratory phase and wheezes; Absent rhonchi or crackles *Routine Cardiovascular Exam Cardiovascular: Present RRR *Routine Abdominal Exam Abdominal: Present soft and normoactive bowel sounds; Absent tenderness *Routine Rectal Exam Rectal:: deferred *Routine Genitalia Exam Genitalia:: deferred *Routine Extremities Exam Extremities: Absent cyanosis, clubbing or edema *Routine Skin Exam Skin: Present intact and warm; Absent rash *Routine Neurological Exam Neurological: Present alert, oriented X3 and moving all extremities; Absent altered mental status Assessment and Plan *Assessment and plan (1) Sepsis: Status: Acute Category: Medical Code(s): A41.9 - Sepsis, unspecified organism (2) Rhinovirus infection: Status: Acute Category: Medical Code(s): B34.8 - Other viral infections of unspecified site (3) Bronchitis: Status: Acute Category: Medical Code(s): J40 - Bronchitis, not specified as acute or chronic (4) Chronic neck pain: Status: Chronic Category: Medical Code(s): M54.2 - Cervicalgia; G89.29 - Other chronic pain (5) History of COPD: Problem Comment: Patient reports a longstanding history of prior diagnosis of COPD with recurrent respiratory illness in June, July and again in September. Wishes to transfer pulmonology care closer to home. 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 Negative for flu and COVID in the ER. Meeting sepsis criteria however with white count, tachycardia, tachypnea. Initially on oxygen requirement, weaned to room air after admission. Discussed case with ER physician, request admission due to severity of symptoms. I agreed to admit for further management. Upon arrival to the floor, comprehensive respiratory panel returned showing patient positive for rhino/enterovirus. Problems addressed as follows: Rhino/enteroviral infection Sepsis COPD/bronchitis with acute exacerbation: -Comprehensive respiratory panel positive for rhino/enterovirus. Meeting sepsis criteria with white count of 16.5, tachycardia and tachypnea with identified infection -Continue DuoNebs every 6 hours scheduled, continue home Symbicort 2puffs twice daily; Continue Singulair 10 mg nightly -Weaned to room air at the time of evaluation. Goal sats greater 90%. Low threshold for oxygen as needed. -Patient follows with pulmonology as an outpatient, consulted to assist with management -Repeat CBC, CMP, magnesium ordered for the morning. White count of 16.5, hemoglobin 12.9. -VBG with respiratory alkalosis with pH of 7.54, pCO2 of 24. -Kidney function electrolytes normal with BUN 8, creatinine 0.7, potassium 3.7 and magnesium 1.5. Replacing per protocol -Mucinex 1200 mg twice daily as needed Hyperlipidemia: Continue home Lipitor 40 mg nightly Depression: Continue Prozac 10 mg Chronic pain: Continue home hydrocodone 7.5 mg 3 times a day as needed; meloxicam 15 mg daily Neuropathy: Continue Lyrica 50 mg 3 times a day as needed Full code Lovenox 40 mg subcu daily Regular diet
[2025-01-05 16:30] LABS: Reflex Lactic (2 hrs) Add Lactic Reflex
[2025-01-05] MEDS: MAGNESIUM SULFATE IN WATER 2 GM/50 ML PIGGYBACK IV (16:42)
[2025-01-05] MEDS: guaiFENesin 600 MG TAB.ER.12H 1200 MG PO (16:46)
[2025-01-05] MEDS: ENOXAPARIN 40MG/0.4ML SYRINGE 40 MG SUBCUT (16:47)
--- NOTE | 2025-01-05 18:00 | PC.NURSE ---
Patient requests to hold singulair dose until nighttime meds are administered
[2025-01-05] MEDS: FLUTICASONE/SALMETEROL 250/50MCG DISKUS 1 PUFF IH (18:10)
[2025-01-05] MEDS: APAP/HYDROCODONE 325MG/7.5MG TAB 1 TAB PO (18:42)
[2025-01-05 18:44] LABS: Lactic Acid Follow up (RFLX 2) 3.6 mmol/L (0.7-2.1)
[2025-01-05] MEDS: MONTELUKAST SODIUM 10MG TAB 10 MG PO (18:45)
[2025-01-05 19:15] LABS: Troponin I < 0.01 ng/ml (0.00-0.034)
--- NOTE | 2025-01-05 21:05 | PC.NURSE ---
pt called out asking for RN at this time. upon entering room, pt asked if I would check her O2 level again. O@ 97% on RA, LS clear. Pt says shes anxious. Called Nabor BARRIENTOS. states he will place order
[2025-01-05] MEDS: ATORVASTATIN 40MG TABLET 40 MG PO (21:38)
[2025-01-05] MEDS: LORazepam 0.5MG TABLET 0.5 MG PO (21:43)
--- NOTE | 2025-01-05 21:44 | PC.NURSE ---
new PRN orders placed by Nabor BARRIENTOS. called RT for PRN duoneb. pt still c/o SOA. hyperventilating. LS still clear. pt reports she is coughing up sputum, and it tastes yellow or green . O2 sat 97%. No accessory muscle use to breathe.
[2025-01-05] MEDS: IPRATROPIUM/ALBUTEROL 3 ML NEB IH (21:50)
[2025-01-06] VITALS: BP 127/47; PULSE 94; RESP 16; TEMP 36.5; O2SAT 96
[2025-01-06 04:00] VITALS: BP 108/48; PULSE 85; RESP 16; TEMP 36.7; O2SAT 95; BMI 33.7
[2025-01-06] MEDS: FLUTICASONE/SALMETEROL 250/50MCG DISKUS 1 PUFF IH (06:23)
[2025-01-06 06:51] LABS: Alanine Aminotransferase 24 U/L (12-78); Albumin/Globulin Ratio 1.5 (1.1-1.8); Alkaline Phosphatase 69 U/L (38-126); Anion Gap 11.7 mEq/L (5-15); Aspartate Amino Transferase 23 U/L (14-36); Bilirubin,Total 0.4 mg/dl (0.2-1.3); Blood Urea Nitrogen 11 mg/dl (7-17); Calcium 9.1 mg/dl (8.4-10.2); Carbon Dioxide 22 mmol/L (22.0-30.0); Chloride 110 mmol/L (98-107); Creatinine Clearance Estimated 146 mL/min (50-200); Estimated Glomerular Filt Rate 103 ml/min (>60); GFR (African American) 125 ML/MIN (>60); Globulin 2.7 g/dL (1.3-3.2); Glucose 128 mg/dl (74-100); Magnesium 2.4 mg/dl (1.6-2.3); Potassium 3.7 mmoL/L (3.5-5.1); Sodium 140 mmol/L (136-145); Total Protein,Serum 6.7 g/dl (6.3-8.2)
--- NOTE | 2025-01-06 07:00 | EXP.DC.SUM ---
General Admission date:: 01/05/25 Discharge date: 01/06/25 HPI HPI HPI: Ms. Barr is a 59-year-old female who presents with 4 to 5 days of weakness, cough, shortness of breath. She denies chest pain. States she is feeling very weak and dyspneic however. Came to the ER because of her shortness of breath. Found to be tachycardic, tachypneic with leukocytosis. Meeting criteria for sepsis. States she has had sepsis before and went into shock and is very concerned about her current state. Uses inhalers for bronchitis/COPD. Follows with pulmonology. White count elevated at 16. Given her tachycardia, sepsis criteria, unknown source, medicine consulted for admission and further management. Initiated on broad-spectrum antibiotics. Upon arrival to the floor, patient's comprehensive panel returned positive for rhino/enterovirus. Requesting Mucinex to help clear her secretions. Weaned to room air by the time of arrival to the floor. Blood pressure remains normal at 128/52. Afebrile at this time. Temperature of 100.0. Anxious but alert and oriented x 4 Hospital Course Hospital Course Hospital Course: 59-year-old female with history of bronchitis and COPD presents with weakness and shortness of breath. Negative for flu and COVID in the ER. Meeting sepsis criteria however with white count, tachycardia, tachypnea. Initially on oxygen requirement, weaned to room air after admission. Discussed case with ER physician, request admission due to severity of symptoms. I agreed to admit for further management. Upon arrival to the floor, comprehensive respiratory panel returned showing patient positive for rhino/enterovirus. Transition to doxycycline. Given her stability on room air since shortly after admission, will discharge home with follow-up with pulmonology as an outpatient. Offered reassurance that this is a viral infection and should run its course in 5 to 6 days. Problems addressed as follows: Rhino/enteroviral infection Sepsis COPD/bronchitis with acute exacerbation: -Comprehensive respiratory panel positive for rhino/enterovirus. Meeting sepsis criteria with white count of 16.5, tachycardia and tachypnea with identified infection. Treated with DuoNebs every 6 hours during admission along with home inhalers. Weaned to room air shortly after arriving to the floor. Remained stable above 90% on room air. Pulmonology evaluated, recommend continuing 3 days of doxycycline to complete empiric antibiotic course for bronchitis/COPD component. Will continue Mucinex 1200 mg twice daily as needed. Overall doing well. White count bumped from 16-22 after receiving high-dose steroids in the ER, given her clinical improvement suspect this is secondary to the marginalization, reactive effect from steroids. Hyperlipidemia: Continue home Lipitor 40 mg nightly Depression: Continue Prozac 10 mg Chronic pain: Continue home hydrocodone 7.5 mg 3 times a day as needed; meloxicam 15 mg daily Neuropathy: Continue Lyrica 50 mg 3 times a day as needed Total time spent on discharge 32 minutes in counseling, documentation, chart review, and direct care with patient. Exam Data for Last 24 hours Vital signs and Labs for Last 24 Hours: Temp Pulse Resp BP Pulse Ox O2 Del Method 98.0 F 85 16 108/48 L 95 Room Air 01/06/25 04:00 01/06/25 04:00 01/06/25 04:00 01/06/25 04:00 01/06/25 04:00 01/06/25 05:00 Laboratory Results - last 24 hr 01/05/25 09:00: Chlamy pneumoniae PCR Not detected, Adenovirus (PCR) Not detected, B. pertussis DNA (PCR) Not detected, Coronavirus OC43 (PCR) Not detected, Coronavirus HKU1 (PCR) Not detected, Coronavirus 229E (PCR) Not detected, SARS-CoV-2 (PCR) Not detected 01/05/25 09:00: SARS-CoV-2 (PCR) Not detected, Coronavirus NL63 (PCR) Not detected, Human Metapneumovir PCR Not detected, Influenza A (H1) PCR Not detected, Influ A (H1N1/09) PCR Not detected, Influenza A (H3) PCR Not detected, Influenza Type A (PCR) Not detected, Influenza A Untype (PCR) Not detected, Influenza Type B (PCR) Not detected 01/05/25 09:00: Influenza Type B (PCR) Not detected, M. pneumoniae (PCR) Not detected, Parainfluenza 1 (PCR) Not detected, Parainfluenza 2 (PCR) Not detected, Parainfluenza 3 (PCR) Not detected, Parainfluenza 4 (PCR) Not detected, RSV (PCR) Not detected, Entero/Rhino (PCR) Detected A 01/05/25 09:06: VBG pH 7.54 H, VBG pCO2 24.2 L, VBG pO2 41.6 H, VBG HCO3 20.4 L, VBG Total CO2 21.2 L, VBG O2 Saturation 84.1 H, VBG Base Excess -2.1, VBG Lactic Acid 3.3 H 01/05/25 09:40: WBC 16.5 H, RBC 4.41, Hgb 12.9, Hct 37.8, MCV 85.7, MCH 29.3, MCHC 34.1, RDW 12.3, Plt Count 278, MPV 9.4, Neut % (Auto) 81.7 H, Lymph % (Auto) 7.2 L, [place] % (Auto) 9.9 H, Eos % (Auto) 0.4, Baso % (Auto) 0.4, Neut # (Auto) 13.5 H, Lymph # (Auto) 1.2, [place] # (Auto) 1.6 H, Eos # (Auto) 0.1, Baso # (Auto) 0.1, Total Counted 100, Neutrophils % (Manual) 77 H, Lymphocytes % (Manual) 18, Monocytes % (Manual) 5, Platelet Estimate Normal, RBC Morphology Normal, PT 9.9, INR 0.89 L, APTT 23.0, D-Dimer < 0.25, Sodium 139, Potassium 3.7, Chloride 105, Carbon Dioxide 22, Anion Gap 15.7 H, BUN 8, Creatinine 0.70, Estimated Creat Clear 125, Estimated GFR 86, Est GFR ( Amer) 104, Glucose 129 H, Calcium 9.7, Magnesium 1.5 L, Total Bilirubin 1.0, AST 30, ALT 29, Alkaline Phosphatase 79, Troponin I < 0.01, NT-Pro-B Natriuret Pep < 20.0, Total Protein 7.9, Albumin 4.8, Globulin 3.1, Albumin/Globulin Ratio 1.5, TSH 0.91, Thyroxine (T4) 12.2 H 01/05/25 12:03: Troponin I 0.01 01/05/25 14:26: Lactate 3.1 H 01/05/25 17:37: Lactate 3.6 H, Troponin I < 0.01 I & O for Last 24 hours: Intake & Output 01/03/25 01/04/25 01/05/25 01/06/25 23:59 23:59 23:59 23:59 Intake Total 840 / 840 Output Total 0 / 0 0 / 0 Balance 840 / 840 0 / 0 Weight 88.6 kg 89.63 kg Constitutional Constitutional: no acute distress, obese and cooperative *Routine HEENT Exam Head: Present normocephalic Eye: Present EOMI and PERRL ENT: Present mucous membranes moist *Routine Neck Exam Neck: Present supple; Absent lymphadenopathy *Routine Respiratory Exam Respiratory: Present CTA bilaterally, rhonchi (Clear with cough) and normal respiratory effort; Absent wheezes or crackles *Routine Cardiovascular Exam Cardiovascular: Present RRR *Routine Abdominal Exam Abdominal: Present soft and normoactive bowel sounds; Absent tenderness *Routine Rectal Exam Patient deferred: visual exam *Routine Exam Patient deferred: external exam *Routine Extremities Exam Extremities: Absent cyanosis, clubbing or edema *Routine Skin Exam Skin: Present warm; Absent rash *Routine Neurological Exam Neurological: Present alert, oriented X3 and moving all extremities; Absent altered mental status Routine Psychiatric Exam Psychiatric: Present anxious Results Data Completed and Pending Labs on day of discharge: Labs from last 24 hours 01/05/25 01/05/25 01/05/25 17:37 14:26 12:03 WBC RBC Hgb Hct MCV MCH MCHC RDW Plt Count MPV Neut % (Auto) Lymph % (Auto) [place] % (Auto) Eos % (Auto) Baso % (Auto) Neut # (Auto) Lymph # (Auto) [place] # (Auto) Eos # (Auto) Baso # (Auto) Total Counted Neutrophils % (Manual) Lymphocytes % (Manual) Monocytes % (Manual) Platelet Estimate RBC Morphology PT INR APTT D-Dimer VBG pH VBG pCO2 VBG pO2 VBG HCO3 VBG Total CO2 VBG O2 Saturation VBG Base Excess VBG Lactic Acid Sodium Potassium Chloride Carbon Dioxide Anion Gap BUN Creatinine Estimated Creat Clear Estimated GFR Est GFR ( Amer) Glucose Lactate 3.6 H 3.1 H Calcium Magnesium Total Bilirubin AST ALT Alkaline Phosphatase Troponin I < 0.01 0.01 NT-Pro-B Natriuret Pep Total Protein Albumin Globulin Albumin/Globulin Ratio TSH Thyroxine (T4) Chlamy pneumoniae PCR Adenovirus (PCR) B. pertussis DNA (PCR) Coronavirus OC43 (PCR) Coronavirus HKU1 (PCR) Coronavirus 229E (PCR) SARS-CoV-2 (PCR) Coronavirus NL63 (PCR) Human Metapneumovir PCR Influenza A (H1) PCR Influ A (H1N1/09) PCR Influenza A (H3) PCR Influenza Type A (PCR) Influenza A Untype (PCR) Influenza Type B (PCR) M. pneumoniae (PCR) Parainfluenza 1 (PCR) Parainfluenza 2 (PCR) Parainfluenza 3 (PCR) Parainfluenza 4 (PCR) RSV (PCR) Entero/Rhino (PCR) 01/05/25 01/05/25 01/05/25 09:40 09:06 09:00 WBC 16.5 H RBC 4.41 Hgb 12.9 Hct 37.8 MCV 85.7 MCH 29.3 MCHC 34.1 RDW 12.3 Plt Count 278 MPV 9.4 Neut % (Auto) 81.7 H Lymph % (Auto) 7.2 L [place] % (Auto) 9.9 H Eos % (Auto) 0.4 Baso % (Auto) 0.4 Neut # (Auto) 13.5 H Lymph # (Auto) 1.2 [place] # (Auto) 1.6 H Eos # (Auto) 0.1 Baso # (Auto) 0.1 Total Counted 100 Neutrophils % (Manual) 77 H Lymphocytes % (Manual) 18 Monocytes % (Manual) 5 Platelet Estimate Normal RBC Morphology Normal PT 9.9 INR 0.89 L APTT 23.0 D-Dimer < 0.25 VBG pH 7.54 H VBG pCO2 24.2 L VBG pO2 41.6 H VBG HCO3 20.4 L VBG Total CO2 21.2 L VBG O2 Saturation 84.1 H VBG Base Excess -2.1 VBG Lactic Acid 3.3 H Sodium 139 Potassium 3.7 Chloride 105 Carbon Dioxide 22 Anion Gap 15.7 H BUN 8 Creatinine 0.70 Estimated Creat Clear 125 Estimated GFR 86 Est GFR ( Amer) 104 Glucose 129 H Lactate Calcium 9.7 Magnesium 1.5 L Total Bilirubin 1.0 AST 30 ALT 29 Alkaline Phosphatase 79 Troponin I < 0.01 NT-Pro-B Natriuret Pep < 20.0 Total Protein 7.9 Albumin 4.8 Globulin 3.1 Albumin/Globulin Ratio 1.5 TSH 0.91 Thyroxine (T4) 12.2 H Chlamy pneumoniae PCR Adenovirus (PCR) B. pertussis DNA (PCR) Coronavirus OC43 (PCR) Coronavirus HKU1 (PCR) Coronavirus 229E (PCR) SARS-CoV-2 (PCR) Coronavirus NL63 (PCR) Human Metapneumovir PCR Influenza A (H1) PCR Influ A (H1N1) PCR Influenza A (H3) PCR Influenza Type A (PCR) Influenza A Untype (PCR) Influenza Type B (PCR) Not detected M. pneumoniae (PCR) Not detected Parainfluenza 1 (PCR) Not detected Parainfluenza 2 (PCR) Not detected Parainfluenza 3 (PCR) Not detected Parainfluenza 4 (PCR) Not detected RSV (PCR) Not detected Entero/Rhino (PCR) Detected A 01/05/25 01/05/25 09:00 09:00 WBC RBC Hgb Hct MCV MCH MCHC RDW Plt Count MPV Neut % (Auto) Lymph % (Auto) [place] % (Auto) Eos % (Auto) Baso % (Auto) Neut # (Auto) Lymph # (Auto) [place] # (Auto) Eos # (Auto) Baso # (Auto) Total Counted Neutrophils % (Manual) Lymphocytes % (Manual) Monocytes % (Manual) Platelet Estimate RBC Morphology PT INR APTT D-Dimer VBG pH VBG pCO2 VBG pO2 VBG HCO3 VBG Total CO2 VBG O2 Saturation VBG Base Excess VBG Lactic Acid Sodium Potassium Chloride Carbon Dioxide Anion Gap BUN Creatinine Estimated Creat Clear Estimated GFR Est GFR ( Amer) Glucose Lactate Calcium Magnesium Total Bilirubin AST ALT Alkaline Phosphatase Troponin I NT-Pro-B Natriuret Pep Total Protein Albumin Globulin Albumin/Globulin Ratio TSH Thyroxine (T4) Chlamy pneumoniae PCR Not detected Adenovirus (PCR) Not detected B. pertussis DNA (PCR) Not detected Coronavirus OC43 (PCR) Not detected Coronavirus HKU1 (PCR) Not detected Coronavirus 229E (PCR) Not detected SARS-CoV-2 (PCR) Not detected Not detected Coronavirus NL63 (PCR) Not detected Human Metapneumovir PCR Not detected Influenza A (H1) PCR Not detected Influ A (H1N1) PCR Not detected Influenza A (H3) PCR Not detected Influenza Type A (PCR) Not detected Influenza A Untype (PCR) Not detected Influenza Type B (PCR) Not detected M. pneumoniae (PCR) Parainfluenza 1 (PCR) Parainfluenza 2 (PCR) Parainfluenza 3 (PCR) Parainfluenza 4 (PCR) RSV (PCR) Entero/Rhino (PCR) DS: Diagnosis Discharge Diagnosis (1) Sepsis: Status: Acute Code(s): A41.9 - Sepsis, unspecified organism (2) Rhinovirus infection: Status: Acute Code(s): B34.8 - Other viral infections of unspecified site (3) Bronchitis: Status: Acute Code(s): J40 - Bronchitis, not specified as acute or chronic (4) Chronic neck pain: Status: Chronic Code(s): M54.2 - Cervicalgia; G89.29 - Other chronic pain (5) History of COPD: Status: Chronic Code(s): Z87.09 - Personal history of other diseases of the respiratory system Problem details: Patient reports a longstanding history of prior diagnosis of COPD with recurrent respiratory illness in June, July and again in September. Wishes to transfer pulmonology care closer to home. 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[facility] [place] (6) Obesity (BMI 30-39.9): Status: Acute Code(s): E66.9 - Obesity, unspecified (7) Chronic narcotic use: Status: Chronic Code(s): F11.90 - Opioid use, unspecified, uncomplicated (8) Depression: Status: Acute Code(s): F32.A - Depression, unspecified Meds Home Medications and Allergies Home Medications ?Medication ?Instructions ?Recorded ?Confirmed ?Type hydrocodone 7.5 mg-acetaminophen 1 tab PO TID 07/20/24 01/05/25 History 325 mg tablet pregabalin 50 mg capsule 50 mg PO TIDP PRN Moderate Pain 07/20/24 01/05/25 History (Scale Score 5-6) atorvastatin 40 mg tablet 40 mg PO HS 10/22/24 01/05/25 History fluticasone propionate 50 2 spray intranasal DAILY 10/22/24 01/05/25 History mcg/actuation nasal spray,suspension meloxicam 15 mg tablet 15 mg PO DAILY 10/22/24 01/05/25 History montelukast 10 mg tablet 10 mg PO PM 10/22/24 01/05/25 History azelastine 205.5 mcg (0.15 %) 2 spray intranasal HS 90 days #30 12/30/24 01/05/25 Rx nasal spray (Astepro Allergy) mL fluoxetine 10 mg capsule 10 mg PO DAILY 12/30/24 01/05/25 History albuterol 90 mcg-budesonide 80 2 inh inhalation Q6HP PRN 01/05/25 01/05/25 History mcg/actuation HFA aerosol inhaler shortness of breath or wheezing (Airsupra) budesonide-formoterol HFA 160 2 puff inhalation BIDRT 01/05/25 01/05/25 History mcg-4.5 mcg/actuation aerosol inhaler (Symbicort) ipratropium 0.5 mg-albuterol 3 mg 3 ml inhalation Q6HP PRN wheezing 01/05/25 01/05/25 History (2.5 mg base)/3 mL nebulization soln doxycycline hyclate 100 mg tablet 100 mg PO Q12H 3 days #5 tabs 01/06/25 Rx guaifenesin 600 mg tablet, 1,200 mg (2 x 600 mg) PO BIDP PRN 01/06/25 Rx extended release 12 hr (Mucinex) Congestion 10 days #40 tabs New Prescriptions to Start Prescriptions: doxycycline hyclArmando Talaveraaifenesin [Mucinex] Armando Roberts Allergies Allergy/AdvReac Type Severity Reaction Status Date / Time Penicillins Allergy Mild Unknown Verified 01/05/25 12:10 allergy reaction Sulfa (Sulfonamide Allergy Hives Verified 01/05/25 12:10 Antibiotics) codeine AdvReac Vomiting Verified 01/05/25 12:10 Discharge Plan Disposition Patient Disposition: Home, Self-Care Condition: Fair Discharge Order Discharge Orders: Discharge Order (Routine); Ordered 01/06/25 Ordered By: Armando Roberts Follow up Plan Follow up with: Janes Mason [Primary Care Provider] - 01/12/25 2:00 pm Scout Avila MD [Physician] - 02/01/25 1:00 pm Prescriptions/Medication Reconciliation: New doxycycline hyclate 100 mg Tablet 100 mg PO Q12H 3 Days Qty: 5 0RF guaifenesin [Mucinex] 600 mg Tablet Extended Release 12hr 1,200 mg PO BIDP PRN (Reason: Congestion) 10 Days Qty: 40 0RF Continued fluticasone propionate 50 mcg/actuation spray,suspension 2 spray intranasal DAILY montelukast 10 mg tablet 10 mg PO PM atorvastatin 40 mg tablet 40 mg PO HS meloxicam 15 mg tablet 15 mg PO DAILY fluoxetine 10 mg capsule 10 mg PO DAILY azelastine [Astepro Allergy] 205.5 mcg (0.15 %) spray,non-aerosol 2 spray intranasal HS 90 Days Qty: 30 3RF Rx Instructions: administer into each nostril hydrocodone-acetaminophen 7.5-325 mg tablet 1 tab PO TID pregabalin 50 mg capsule 50 mg PO TIDP PRN (Reason: Moderate Pain (Scale Score 5-6)) ipratropium-albuterol 0.5 mg-3 mg(2.5 mg base)/3 mL solution for nebulization 3 ml inhalation Q6HP PRN (Reason: wheezing) Rx Instructions: Medicare part B drug coverage budesonide-formoterol [Symbicort] 160-4.5 mcg/actuation HFA aerosol inhaler 2 puff inhalation BIDRT Airsupra 90-80 mcg/actuation HFA aerosol inhaler 2 inh inhalation Q6HP PRN (Reason: shortness of breath or wheezing) Problem Reconciliation Problems Reviewed?: Yes Patient Discharge Instructions ACTIVITY: Continue current activity DIET: continue same diet Patient Instructions: Sinusitis, DI for Sepsis -- Adult Print Language: Vietnamese Providers Primary Care Provider: Janes Mason Provider: Armando Roberts Attending Provider: Armando Roberts
[2025-01-06 07:15] LABS: Basophils % 0.1 % (0.1-2.0); Eosinophils % 0.2 % (0.1-12.0); Hematocrit 34.2 % (37.0-47.0); Lymphocytes # 1.6 K/mm3 (0.7-4.5); Lymphocytes % 6.8 % (10-50); Mean Corpuscular HGB Conc 32.7 g/dL (31.8-35.4); Mean Corpuscular Volume 88.6 fl (81-99); Monocytes # 1.8 K/mm3 (0.1-1.0); Monocytes % 7.7 % (1.7-9.3); Neutrophils # 19.4 K/mm3 (1.8-7.8); Neutrophils % 84.6 % (37.0-80.0); Platelet Count 249 K/mm3 (142-424); Red Blood Count 3.86 M/mm3 (4.20-5.40); Red Cell Distribution Width 12.8 % (11.5-17.5); White Blood Count 22.9 K/mm3 (4.8-10.8)
[2025-01-06 07:38] LABS: MANUAL DIFFERENTIAL MANUAL DIFFERENTIAL (MANUAL DIFF)
[2025-01-06 08:00] VITALS: BP 120/50; PULSE 99; RESP 16; TEMP 36.7; O2SAT 95
[2025-01-06 08:37] LABS: Lymphocytes % 6 % (10-50); Monocytes % 7 % (2-9); Neutrophils % 87 % (42-76); Platelet Estimate Normal; RBC Morphology Normal; Total Cells Counted 100
[2025-01-06] MEDS: guaiFENesin 600 MG TAB.ER.12H 1200 MG PO (08:37)
[2025-01-06] MEDS: DOXYCYCLINE HYCL 100 MG TABLET PO (08:37)
[2025-01-06] MEDS: FLUOXETINE 10MG CAPSULE 10 MG PO (08:37)
[2025-01-06] MEDS: IPRATROPIUM/ALBUTEROL 3 ML NEB IH (08:48)
[2025-01-06 08:49] VITALS: PULSE 94; PULSE 99
--- NOTE | 2025-01-06 09:42 | EXP.PULM.CON ---
History of Present Illness History of present illness: Ms. Monge is a 59-year-old female no significant smoking history following in pulmonary clinic for exertional dyspnea asthma allergic rhinitis presented to ER with worsening respiratory distress cough and shortness of breath and pulmonary was called for further evaluation and management. Patient admits worsening respiratory distress for the last 3 to 4 days with acid subjective fevers chills body aches and generalized weakness. [facility] Disclaimer: The information contained in this section may have been updated after the patient was seen, as this information can be updated by other users. Medical History (Updated 01/06/25 @ 11:34 by Scout Avila MD) Viral pneumonia Chronic neck pain Bronchitis Shortness of Breath Cough Pneumonia Febrile illness, acute Body aches Acute dyspnea Allergic rhinitis Dyspnea on exertion Abnormal EEG Fibroids Endometriosis Surgical History H/O breast augmentation History of appendectomy H/O nasal septoplasty Hx of cholecystectomy History of dilation and curettage H/O laparoscopy Family History Coronary artery disease Heart attack Asthma Social History Smoking Status: Never smoker alcohol intake: former substance use type: denies use current occupational status: retired Travel in the last 8 weeks: None household members: spouse housing: house marital status: caffeine: No Review of Systems Constitutional Constitutional: Reports anorexia, Reports body ache(s), Reports fatigue, Reports fever(s) and Reports lethargy Eyes Eyes: Denies eye discharge, Denies dry eyes, Denies irritation and Denies itchy eyes ENT Ears, Nose, Mouth, and Throat: Denies epistaxis, Denies facial pain, Denies lip swelling and Denies throat swelling *Cardiovascular Cardiovascular: Reports dyspnea and Reports dyspnea on exertion *Respiratory Respiratory: Denies change in phlegm color, Reports chest congestion, Reports cough, Reports dyspnea, Reports dyspnea on exertion, Denies excessive phlegm production and Denies wheezing *Gastrointestinal Gastrointestinal: Denies abdominal pain, Denies belching and Denies cramping *Musculoskeletal Musculoskeletal: Reports back pain, Reports myalgias and Reports other (No small joint swelling or Pain) Psychiatric Psychiatric: Denies homicidal ideation and Denies suicidal ideation Endocrine Endocrine: Reports fatigue and Denies heat intolerance Hematologic/Lymphatic Hematologic/Lymphatic: Denies easy bleeding and Denies lymphadenopathy Allergic/Immunologic Allergic/Immunologic: Denies itchy eyes, Denies lip swelling, Denies throat swelling and Denies wheezing Pulmonology Exam Inpatient Vital signs and Labs for Last 24 Hours: Temp Pulse Resp BP Pulse Ox O2 Del Method 98.1 F 99 H 16 120/50 L 95 Room Air 01/06/25 08:00 01/06/25 08:49 01/06/25 08:00 01/06/25 08:00 01/06/25 08:00 01/06/25 09:00 Laboratory Results - last 24 hr 01/05/25 09:00: Chlamy pneumoniae PCR Not detected, Adenovirus (PCR) Not detected, B. pertussis DNA (PCR) Not detected, Coronavirus OC43 (PCR) Not detected, Coronavirus HKU1 (PCR) Not detected, Coronavirus 229E (PCR) Not detected, SARS-CoV-2 (PCR) Not detected 01/05/25 09:00: SARS-CoV-2 (PCR) Not detected, Coronavirus NL63 (PCR) Not detected, Human Metapneumovir PCR Not detected, Influenza A (H1) PCR Not detected, Influ A (H1N1/09) PCR Not detected, Influenza A (H3) PCR Not detected, Influenza Type A (PCR) Not detected, Influenza A Untype (PCR) Not detected, Influenza Type B (PCR) Not detected 01/05/25 09:00: Influenza Type B (PCR) Not detected, M. pneumoniae (PCR) Not detected, Parainfluenza 1 (PCR) Not detected, Parainfluenza 2 (PCR) Not detected, Parainfluenza 3 (PCR) Not detected, Parainfluenza 4 (PCR) Not detected, RSV (PCR) Not detected, Entero/Rhino (PCR) Detected A 01/05/25 09:06: VBG pH 7.54 H, VBG pCO2 24.2 L, VBG pO2 41.6 H, VBG HCO3 20.4 L, VBG Total CO2 21.2 L, VBG O2 Saturation 84.1 H, VBG Base Excess -2.1, VBG Lactic Acid 3.3 H 01/05/25 09:40: WBC 16.5 H, RBC 4.41, Hgb 12.9, Hct 37.8, MCV 85.7, MCH 29.3, MCHC 34.1, RDW 12.3, Plt Count 278, MPV 9.4, Neut % (Auto) 81.7 H, Lymph % (Auto) 7.2 L, Mifflin % (Auto) 9.9 H, Eos % (Auto) 0.4, Baso % (Auto) 0.4, Neut # (Auto) 13.5 H, Lymph # (Auto) 1.2, Mifflin # (Auto) 1.6 H, Eos # (Auto) 0.1, Baso # (Auto) 0.1, Total Counted 100, Neutrophils % (Manual) 77 H, Lymphocytes % (Manual) 18, Monocytes % (Manual) 5, Platelet Estimate Normal, RBC Morphology Normal, PT 9.9, INR 0.89 L, APTT 23.0, D-Dimer < 0.25, Sodium 139, Potassium 3.7, Chloride 105, Carbon Dioxide 22, Anion Gap 15.7 H, BUN 8, Creatinine 0.70, Estimated Creat Clear 125, Estimated GFR 86, Est GFR ( Amer) 104, Glucose 129 H, Calcium 9.7, Magnesium 1.5 L, Total Bilirubin 1.0, AST 30, ALT 29, Alkaline Phosphatase 79, Troponin I < 0.01, NT-Pro-B Natriuret Pep < 20.0, Total Protein 7.9, Albumin 4.8, Globulin 3.1, Albumin/Globulin Ratio 1.5, TSH 0.91, Thyroxine (T4) 12.2 H 01/05/25 12:03: Troponin I 0.01 01/05/25 14:26: Lactate 3.1 H 01/05/25 17:37: Lactate 3.6 H, Troponin I < 0.01 01/06/25 05:30: WBC 22.9 H* D, RBC 3.86 L, Hgb 11.0 L D, Hct 34.2 L, MCV 88.6, MCH 29.0, MCHC 32.7, RDW 12.8, Plt Count 249, MPV 10.0, Neut % (Auto) 84.6 H, Lymph % (Auto) 6.8 L, Mifflin % (Auto) 7.7, Eos % (Auto) 0.2, Baso % (Auto) 0.1, Neut # (Auto) 19.4 H, Lymph # (Auto) 1.6, Mifflin # (Auto) 1.8 H, Eos # (Auto) 0.0, Baso # (Auto) 0.0, Total Counted 100, Neutrophils % (Manual) 87 H, Lymphocytes % (Manual) 6 L, Monocytes % (Manual) 7, Platelet Estimate Normal, RBC Morphology Normal, Sodium 140, Potassium 3.7, Chloride 110 H, Carbon Dioxide 22, Anion Gap 11.7, BUN 11 D, Creatinine 0.60, Estimated Creat Clear 146, Estimated GFR 103, Est GFR ( Amer) 125 D, Glucose 128 H, Calcium 9.1, Magnesium 2.4 H D, Total Bilirubin 0.4, AST 23, ALT 24, Alkaline Phosphatase 69, Total Protein 6.7, Albumin 4.0 D, Globulin 2.7, Albumin/Globulin Ratio 1.5 I & O for Labs for Last 24 Hours: Intake & Output 01/03/25 01/04/25 01/05/25 01/06/25 23:59 23:59 23:59 23:59 Intake Total 840 / 840 Output Total 0 / 0 0 / 0 Balance 840 / 840 0 / 0 Weight 195 lb 5.273 oz 197 lb 9.6 oz Constitutional: Present mild distress Head: Present normocephalic and atraumatic ENT: Present normal exam, normal oropharynx and mucous membranes moist Neck: Present normal inspection and full ROM Respiratory: Present diminished air movement and able to speak in complete sentences; Absent prolonged expiratory phase, respiratory distress, rhonchi, wheezes or crackles Cardiac: Present S1/S2, Tachycardia and radial pulses present GI: Present soft and distention; Absent tenderness or guarding Rectal (female): Present deferred (female): Present deferred Skin: Present intact; Absent cyanosis or jaundice Neuro: Present alert, awake and oriented x 3 Extremities: Present normal inspection; Absent clubbing or cyanosis Psychiatric: Present normal affect and cooperative Meds Home Medications and Allergies Home Medications ?Medication ?Instructions ?Recorded ?Confirmed ?Type hydrocodone 7.5 mg-acetaminophen 1 tab PO TID 07/20/24 01/05/25 History 325 mg tablet pregabalin 50 mg capsule 50 mg PO TIDP PRN Moderate Pain 07/20/24 01/05/25 History (Scale Score 5-6) atorvastatin 40 mg tablet 40 mg PO HS 10/22/24 01/05/25 History fluticasone propionate 50 2 spray intranasal DAILY 10/22/24 01/05/25 History mcg/actuation nasal spray,suspension meloxicam 15 mg tablet 15 mg PO DAILY 10/22/24 01/05/25 History montelukast 10 mg tablet 10 mg PO PM 10/22/24 01/05/25 History azelastine 205.5 mcg (0.15 %) 2 spray intranasal HS 90 days #30 12/30/24 01/05/25 Rx nasal spray (Astepro Allergy) mL fluoxetine 10 mg capsule 10 mg PO DAILY 12/30/24 01/05/25 History albuterol 90 mcg-budesonide 80 2 inh inhalation Q6HP PRN 01/05/25 01/05/25 History mcg/actuation HFA aerosol inhaler shortness of breath or wheezing (Airsupra) budesonide-formoterol HFA 160 2 puff inhalation BIDRT 01/05/25 01/05/25 History mcg-4.5 mcg/actuation aerosol inhaler (Symbicort) ipratropium 0.5 mg-albuterol 3 mg 3 ml inhalation Q6HP PRN wheezing 01/05/25 01/05/25 History (2.5 mg base)/3 mL nebulization soln New Prescriptions to Start Prescriptions: Allergies Allergy/AdvReac Type Severity Reaction Status Date / Time Penicillins Allergy Mild Unknown Verified 01/05/25 12:10 allergy reaction Sulfa (Sulfonamide Allergy Hives Verified 01/05/25 12:10 Antibiotics) codeine AdvReac Vomiting Verified 01/05/25 12:10 Results Laboratory Findings 01/06/25 05:30 01/06/25 05:30 PT/INR, D-dimer PT 9.9 seconds (9.2-12.1) 01/05/25 09:40 INR 0.89 (0.9-1.1) L 01/05/25 09:40 D-Dimer < 0.25 ug/mL (0.0-0.5) 01/05/25 09:40 Abnormal lab findings: Abnormal Labs 01/05/25 01/05/25 01/05/25 09:00 09:06 09:40 WBC 16.5 H RBC Hgb Hct Neut % (Auto) 81.7 H Lymph % (Auto) 7.2 L Mifflin % (Auto) 9.9 H Neut # (Auto) 13.5 H Mifflin # (Auto) 1.6 H Neutrophils % (Manual) 77 H Lymphocytes % (Manual) INR 0.89 L VBG pH 7.54 H VBG pCO2 24.2 L VBG pO2 41.6 H VBG HCO3 20.4 L VBG Total CO2 21.2 L VBG O2 Saturation 84.1 H VBG Lactic Acid 3.3 H Chloride Anion Gap 15.7 H Glucose 129 H Lactate Magnesium 1.5 L Thyroxine (T4) 12.2 H Entero/Rhino (PCR) Detected A 01/05/25 01/05/25 01/06/25 14:26 17:37 05:30 WBC 22.9 H* D RBC 3.86 L Hgb 11.0 L D Hct 34.2 L Neut % (Auto) 84.6 H Lymph % (Auto) 6.8 L Mifflin % (Auto) Neut # (Auto) 19.4 H Mifflin # (Auto) 1.8 H Neutrophils % (Manual) 87 H Lymphocytes % (Manual) 6 L INR VBG pH VBG pCO2 VBG pO2 VBG HCO3 VBG Total CO2 VBG O2 Saturation VBG Lactic Acid Chloride 110 H Anion Gap Glucose 128 H Lactate 3.1 H 3.6 H Magnesium 2.4 H D Thyroxine (T4) Entero/Rhino (PCR) Assessment and Plan *Assessment and plan (1) Viral pneumonia: Status: Acute Category: Medical Code(s): J12.9 - Viral pneumonia, unspecified Plan Ms. Monge is a 59-year-old female no significant smoking history following in pulmonary clinic for exertional dyspnea asthma allergic rhinitis presented to ER with worsening respiratory distress cough and shortness of breath and pulmonary was called for further evaluation and management. Patient admits worsening respiratory distress for the last 3 to 4 days with acid subjective fevers chills body aches and generalized weakness. Neutrophilic predominant leukocytosis upon admission worsening. Respiratory viral PCR panel positive for enterorhinovirus. Chest x-ray with no acute pulmonary parenchymal infiltrate/dense consolidative changes/effusions noted. Blood cultures pending. Currently on nebulization therapies along with doxycycline. On initial examination. No significant wheezing noted. Not appear to be in any respiratory distress. Plan: Continue Symbicort inhaler along with DuoNebs 4 times daily as needed Continue doxycycline to complete a total of 3-day course No need for steroids at this point of time Will follow the patient in pulmonary clinic 2 weeks post discharge.
--- NOTE | 2025-01-07 10:57 | SW/DCPLANNER ---
Spoke with patient on the phone. Patient stated that she is doing well. Patient stated that she is aware of her upcoming appointments. Patient stated that she had her meds to bed from clinic pharmacy. Patient stated that she has no concerns or questions at this time. Dorene Flor
== END 2025-01-06 14:12 | disposition home or self-care (01) | DRG 202 ==
LOC: ER 12:15 → 2ND 12:22
PROVIDERS: Admitting Provider Internal Medicine Adolescent Medicine; Emergency Provider Emergency Medicine; PCP Family Medicine; Visit Provider Internal Medicine Adolescent Medicine
DX: J20.6 Acute bronchitis due to rhinovirus (principal); A41.9 Sepsis, unspecified organism; J44.1 Chronic obstructive pulmonary disease with (acute) exacerbation; J44.0 Chronic obstructive pulmonary disease with (acute) lower respiratory infection; E66.9 Obesity, unspecified; G62.9 Polyneuropathy, unspecified; F32.A Depression, unspecified; E78.5 Hyperlipidemia, unspecified; G89.29 Other chronic pain; Z90.49 Acquired absence of other specified parts of digestive tract; Z82.5 Family history of asthma and other chronic lower respiratory diseases; Z82.49 Family history of ischemic heart disease and other diseases of the circulatory system; Z79.899 Other long term (current) drug therapy; Z79.02 Long term (current) use of antithrombotics/antiplatelets; Z79.51 Long term (current) use of inhaled steroids; Z79.891 Long term (current) use of opiate analgesic; Z88.2 Allergy status to sulfonamides; Z88.0 Allergy status to penicillin; Z88.5 Allergy status to narcotic agent; Z68.33 Body mass index [BMI] 33.0-33.9, adult
CPT/HCPCS: 36415; 71045; 80053; 82803; 83605; 83735; 83880; 84436; 84443; 84484; 85007; 85025; 85378; 85610; 85730; 87040; 87633; 87636; 93005; 94640; 99291; J1650; J2919; J3372; J3475; J7120; J7620

== ENCOUNTER 2025-03-18 09:51 | Outpatient (POV) | payer MEDICARE, BC, SELFPAY ==
[2025-03-18 09:53] VITALS: BP 122/83; PULSE 78; RESP 18; O2SAT 97; BMI 32.5
--- NOTE | 2025-03-18 10:03 | A.OFFVIS_ITS ---
HPI Data of Consult Patient: new to practice Consult date: 03/18/25 Requesting Physician: Lula Madrigal APRN Primary Care Provider: Janes Mason Reason for consult: Chronic neck pain History of present illness: Ms. Barr is a 59 year old female who presents today as a new patient. She is a referral from Dr. Janes Mason. Today she rates her pain a 7 out of 10. Patient states that she has had chronic neck pain for years. Patient states around 2013 she ended up starting to have neck pain and it got to where it was so severe that she was sent to a neurosurgeon for consult. She states she ended up undergoing a cervical fusion in 2017 that they fuse 2 levels. Patient states that she did have about 10 days of severe pain from that point and then it eased off and did help for a couple months. Patient states since then it has returned and that the surgeon did say it was a failed back surgery. She states even during that time that she ended up having vision changes. Patient states that her current pain just stays there at her neck and goes into her left shoulder. Patient does not notices much pain on the right side. Patient states it is a constant deep bone pain that interferes with her ability perform activities of daily living such as cooking and cleaning. Patient has tried physical therapy with minimal changes along with multiple injections however these only helped temporarily. Patient has been prescribed medications however she states she really does not like taking them and that she feels like they cause dry mouth and she does have some issues with her teeth on top of it. Patient states that she ended up seeing a physician in [place] who ended up doing a stimulator trial that worked really well and the day that she was scheduled to have it implanted they ended up having to abort the surgery due to hitting a nerve. She states from then on then she went into double pneumonia and it had progressed since. Patient does make mention today that she is interested in possible pump options. Patient states that she has tried multiple avenues including [id number] medications heat and ice and topicals with minimal changes. Patient is interested in any options we may be able to provide.Patient is currently managed with Gifford 7.5 mg 3 times a day and pregabalin 50 mg twice a day from an outside provider. Her Gabino has been reviewed and is appropriate. Pain at rest (0-10 scale): 7 Has patient had previous pain injection?: No Conservative treatment options previously tried: Home exercise plan (Longer than 12 weeks) and Physical Therapy (Minimal changes) cc:: CC: Lula Madrigal APRN [facility] Disclaimer: The information contained in this section may have been updated after the patient was seen, as this information can be updated by other users. Medical History Viral pneumonia Chronic neck pain Bronchitis Shortness of Breath Cough Pneumonia Febrile illness, acute Body aches Acute dyspnea Allergic rhinitis Dyspnea on exertion Abnormal EEG Fibroids Endometriosis Surgical History H/O breast augmentation History of appendectomy H/O nasal septoplasty Hx of cholecystectomy History of dilation and curettage multiple H/O laparoscopy Family History Other Asthma Coronary artery disease Heart attack Social History (Updated 03/18/25 @ 10:10 by Millicent Shultz RN) Smoking Status: Never smoker alcohol intake: former substance use type: denies use current occupational status: unemployed Travel in the last 8 weeks?: None household members: spouse housing: house marital status: caffeine: No Review of Systems Review of Systems Review of systems:: pertinent systems reviewed and negative unless documented below Review of systems (narrative): Review of Systems: General: No recent weight changes, no fever, no sleep disturbances Respiratory: No cough, no shortness of air, no recurring pulmonary infections Cardiovascular/peripheral vascular: No chest pain, no palpitations, no edema, no shortness of breath Gastrointestinal: No new onset incontinence, normal bowel movements reported Genitourinary: No new onset incontinence Musculoskeletal: Chronic neck pain Psychiatric: [Normal mood/affect] Neurological: [Denies weakness in extremities], [denies balance issues] Meds Home Medications and Allergies Home Medications ?Medication ?Instructions ?Recorded ?Confirmed ?Type hydrocodone 7.5 mg-acetaminophen 1 tab PO TID 07/20/24 03/18/25 History 325 mg tablet pregabalin 50 mg capsule 50 mg PO TIDP PRN Moderate Pain 07/20/24 03/18/25 History (Scale Score 5-6) atorvastatin 40 mg tablet 40 mg PO HS 10/22/24 03/18/25 History fluticasone propionate 50 2 spray intranasal DAILY 10/22/24 03/18/25 History mcg/actuation nasal spray,suspension meloxicam 15 mg tablet 15 mg PO DAILY 10/22/24 03/18/25 History montelukast 10 mg tablet 10 mg PO PM 10/22/24 03/18/25 History azelastine 205.5 mcg (0.15 %) 2 spray intranasal HS 90 days #30 12/30/24 03/18/25 Rx nasal spray (Astepro Allergy) mL fluoxetine 10 mg capsule 10 mg PO DAILY 12/30/24 03/18/25 History albuterol 90 mcg-budesonide 80 2 inh inhalation Q6HP PRN 01/05/25 03/18/25 History mcg/actuation HFA aerosol inhaler shortness of breath or wheezing (Airsupra) budesonide-formoterol HFA 160 2 puff inhalation BIDRT 01/05/25 03/18/25 History mcg-4.5 mcg/actuation aerosol inhaler (Symbicort) ipratropium 0.5 mg-albuterol 3 mg 3 ml inhalation Q6HP PRN wheezing 01/05/25 03/18/25 History (2.5 mg base)/3 mL nebulization soln doxycycline hyclate 100 mg tablet 100 mg PO Q12H 3 days #5 tabs 01/06/25 03/18/25 Rx guaifenesin 600 mg tablet, 1,200 mg (2 x 600 mg) PO BIDP PRN 01/06/25 03/18/25 Rx extended release 12 hr (Mucinex) Congestion 10 days #40 tabs New Prescriptions to Start Prescriptions: Allergies Allergy/AdvReac Type Severity Reaction Status Date / Time Penicillins Allergy Mild Unknown Verified 02/01/25 12:57 allergy reaction Sulfa (Sulfonamide Allergy Hives Verified 02/01/25 12:57 Antibiotics) codeine AdvReac Vomiting Verified 02/01/25 12:57 Objective Narrative: Physical Exam: General: Alert and oriented x3, no acute distress, pleasant and cooperative Lungs: Respirations even and unlabored, symmetrical chest expansion Eyes: PERRL Musculoskeletal: Flexion and extension of cervical [spine] somewhat guarded secondary to pain, [antalgic gait noted] Neurological: Speech clear, no gross sensory deficit Additional findings Additional findings: FINDINGS: CERVICAL SPINE FLEXION AND EXTENSION: Mild and moderate degenerative changes present in the cervical spine. The patient has undergone prior anterior cervical fusion at the C5-C7 levels. Multilevel osteophytes are present. No abnormal movement is noted with flexion and extension views. Oblique views reveal mild right C4-5 neuroforaminal narrowing. IMPRESSION: Mild and moderate degenerative change in the cervical spine as described. Reviewed, Interpreted and Dictated by Edwin Hilton III, MD Transcribed by Bailey Mario Authenticated and [facility] Assessment and Plan *Assessment and plan (1) Degenerative disc disease, cervical: Status: Acute Category: Medical Code(s): M50.30 - Other cervical disc degeneration, unspecified cervical region (2) Left shoulder pain: Status: Acute Category: Medical Code(s): M25.512 - Pain in left shoulder (3) Chronic pain syndrome: Status: Acute Category: Medical Code(s): G89.4 - Chronic pain syndrome Plan Patient is experiencing worsening pain throughout her neck with limited range of motion of her cervical spine. Patient has questions over the intrathecal pump trial and we did review all those today going over risk and benefits and educational handouts. Patient does state that she would like to proceed forward with this plan of care. I will order the patient a psychological evaluation and if she is deemed an appropriate patient we will plan on proceeding forward with the pump trial at a later date. Patient was counseled that she would have to discontinue her opioids for 48 hours prior to this procedure. Patient agrees with this plan of care. I will also go ahead and submit for advanced imaging of MRI without contrast of her cervical spine and plan on sending her for evaluation with Dr. Ant hackett once we have the updated imaging. Patient will return to clinic in 1 month for reevaluation of symptoms and plan of care. Patient has been instructed to contact the clinic with any concerns before the n ext appointment. Dr. Choi has reviewed this note and agrees with this plan of care. This note was dictated using voice recognition software and make contain errors or omissions. All injections are used with Lidocaine, Bupivacaine and dexamethasone. Occasionally urine drug screen is needed to verify patient's compliance with our office pain contract. This is ordered based off specific treatments related to chronic pain with the potential to abuse certain medications.
== END 2025-03-18 23:59 | disposition home or self-care (01) ==
LOC: SC.PAIN 09:53
PROVIDERS: PCP Family Medicine; Visit Provider Nurse Practitioner Family
DX: M50.30 Other cervical disc degeneration, unspecified cervical region (principal); M25.512 Pain in left shoulder; G89.4 Chronic pain syndrome; Z73.89 Other problems related to life management difficulty
CPT/HCPCS: 99202; G0463

== ENCOUNTER 2025-03-25 14:44 | Outpatient (CLI) | payer MEDICARE, BC, SELFPAY ==
[2025-03-25] MEDS: METHACHOLINE CHLORIDE 65MG/18ML KIT 65 MG IH (15:00)
[2025-03-25] MEDS: ALBUTEROL 0.083% 2.5 MG/3 ML NEB IH ×2 (16:35→16:45)
== END 2025-03-25 23:59 | disposition home or self-care (01) ==
LOC: RT 14:44
PROVIDERS: PCP Family Medicine; Visit Provider Internal Medicine Pulmonary Disease
DX: J45.909 Unspecified asthma, uncomplicated (principal)
CPT/HCPCS: 94070; 95070; J7674

== ENCOUNTER 2025-04-02 12:55 | Outpatient (CLI) | payer MEDICARE, BC, SELFPAY ==
--- NOTE | 2025-04-02 12:58 | MR_ITS ---
FINAL REPORT CLINICAL HISTORY: NEK PAIN/HAS CERVICAL FUSION CLIPS IN STOMACH. HX NECK SURGERY 2017. LEFT SIDED NECK AND SHOULDER PAIN. NO INJURY OR TRAUMA. FINDINGS: Multi planar MR imaging was obtained of the cervical spine. There is abnormal decreased signal throughout the cervical discs. Magnetic susceptibility artifact is seen associated with fusion hardware bridging C5-6 and C6-7. The vertebrae are of normal height. There is no malalignment. The cervical cord demonstrates normal signal and configuration. C2-C3: There is no evidence of significant disc bulge or protrusion. There is no significant facet hypertrophy. C3-C4: Moderate diffuse disc bulge and endplate hypertrophy. Mild spinal and moderate to high-grade bilateral neuroforaminal narrowing. C4-C5: Moderate diffuse disc bulge and endplate hypertrophy. Moderate spinal and moderate to high-grade bilateral neuroforaminal narrowing. C5-C6: There is no evidence of significant disc bulge or protrusion. There is no significant facet hypertrophy. C6-C7: Posterior osteophyte formation in the midline resulting in mild to moderate spinal canal compromise. C7-T1: There is no evidence of significant disc bulge or protrusion. There is no significant facet hypertrophy. IMPRESSION: Diffuse disc bulge at C4-5 with moderate spinal and moderate to high-grade bilateral neuroforaminal narrowing. Reviewed, Interpreted and Dictated by Neal Fortune MD Transcribed by Annamarie Barillas Authenticated and [facility]
== END 2025-04-02 23:59 | disposition home or self-care (01) ==
LOC: RAD 12:56
PROVIDERS: PCP Family Medicine; Visit Provider Nurse Practitioner Family
DX: M50.321 Other cervical disc degeneration at C4-C5 level (principal); M48.02 Spinal stenosis, cervical region; M99.71 Connective tissue and disc stenosis of intervertebral foramina of cervical region; Z98.1 Arthrodesis status; Z98.890 Other specified postprocedural states
CPT/HCPCS: 72141

== ENCOUNTER 2025-04-15 11:25 | Outpatient (POV) | payer MEDICARE, BC, SELFPAY ==
[2025-04-15 11:48] VITALS: BP 128/75; PULSE 81; RESP 16; O2SAT 98; BMI 32.5
--- NOTE | 2025-04-15 12:18 | EXP.PAIN.SOA ---
[facility] Disclaimer: The information contained in this section may have been updated after the patient was seen, as this information can be updated by other users. Medical History Viral pneumonia Chronic neck pain Bronchitis Shortness of Breath Cough Pneumonia Febrile illness, acute Body aches Acute dyspnea Allergic rhinitis Dyspnea on exertion Abnormal EEG Fibroids Endometriosis Surgical History H/O breast augmentation History of appendectomy H/O nasal septoplasty Hx of cholecystectomy History of dilation and curettage multiple H/O laparoscopy Family History Other Asthma Coronary artery disease Heart attack Social History Smoking Status: Never smoker alcohol intake: former substance use type: denies use current occupational status: other Travel in the last 8 weeks?: None household members: spouse housing: house marital status: caffeine: No PM Subjective & Objective Subjective Subjective:: Patient is a pleasant 59-year-old female who presents today for cervical MRI follow-up. Today she rates her pain a 5 out of 10. She denies any new trauma or injury. Patient is still having a chronic neck pain that she saw our office from last. Patient states that she would still like to proceed forward with the pump trial. Patient is still prescribed [place] 7.5 mg 3 times a day and pregabalin 50 mg twice a day from the clinic in [place]. Patient is requesting if there is any way that we can take this over. Patient states that the office they are in [place] is constantly having her run out of her medication and she is going days without any pain medication to help improve her symptoms. Patient does have a longstanding history of previous cervical fusion. Her Gab[place] has been reviewed and is appropriate. Review of Systems: General: No recent weight changes, no fever, no sleep disturbances Respiratory: No cough, no shortness of air, no recurring pulmonary infections Cardiovascular/peripheral vascular: No chest pain, no palpitations, no edema, no shortness of breath Gastrointestinal: No new onset incontinence, normal bowel movements reported Genitourinary: No new onset incontinence Musculoskeletal: Neck pain Psychiatric: [Normal mood/affect] Neurological: [Denies weakness in extremities], [denies balance issues] Pain at rest (0-10 scale): 5 Objective Objective:: Physical Exam: General: Alert and oriented x3, no acute distress, pleasant and cooperative Lungs: Respirations even and unlabored, symmetrical chest expansion Eyes: PERRL Musculoskeletal: Flexion and extension of cervical [spine] somewhat guarded secondary to pain, [antalgic gait noted] Neurological: Speech clear, no gross sensory deficit Has patient had previous pain injection?: No Conservative treatment options previously tried: Home exercise plan Length of treatment: Longer than 12 weeks Meds Home Medications and Allergies Home Medications ?Medication ?Instructions ?Recorded ?Confirmed ?Type hydrocodone 7.5 mg-acetaminophen 1 tab PO TID 07/20/24 04/15/25 History 325 mg tablet pregabalin 50 mg capsule 50 mg PO TIDP PRN Moderate Pain 07/20/24 04/15/25 History (Scale Score 5-6) atorvastatin 40 mg tablet 40 mg PO HS 10/22/24 04/15/25 History fluticasone propionate 50 2 spray intranasal DAILY 10/22/24 04/15/25 History mcg/actuation nasal spray,suspension meloxicam 15 mg tablet 15 mg PO DAILY 10/22/24 04/15/25 History montelukast 10 mg tablet 10 mg PO PM 10/22/24 04/15/25 History azelastine 205.5 mcg (0.15 %) 2 spray intranasal HS 90 days #30 12/30/24 04/15/25 Rx nasal spray (Astepro Allergy) mL fluoxetine 10 mg capsule 10 mg PO DAILY 12/30/24 04/15/25 History albuterol 90 mcg-budesonide 80 2 inh inhalation Q6HP PRN 01/05/25 04/15/25 History mcg/actuation HFA aerosol inhaler shortness of breath or wheezing (Airsupra) budesonide-formoterol HFA 160 2 puff inhalation BIDRT 01/05/25 04/15/25 History mcg-4.5 mcg/actuation aerosol inhaler (Symbicort) ipratropium 0.5 mg-albuterol 3 mg 3 ml inhalation Q6HP PRN wheezing 01/05/25 04/15/25 History (2.5 mg base)/3 mL nebulization soln guaifenesin 600 mg tablet, 1,200 mg (2 x 600 mg) PO BIDP PRN 01/06/25 04/15/25 Rx extended release 12 hr (Mucinex) Congestion 10 days #40 tabs benralizumab 30 mg/mL subcutaneous 30 mg SQ Q4W #1 mL 04/01/25 04/15/25 Rx auto-injector (Fasenra Pen) New Prescriptions to Start Prescriptions: Allergies Allergy/AdvReac Type Severity Reaction Status Date / Time Penicillins Allergy Mild Unknown Verified 04/01/25 11:26 allergy reaction Sulfa (Sulfonamide Allergy Hives Verified 04/01/25 11:26 Antibiotics) codeine AdvReac Vomiting Verified 04/01/25 11:26 Assessment and Plan *Assessment and plan (1) Chronic pain syndrome: Status: Acute Category: Medical Code(s): G89.4 - Chronic pain syndrome (2) Left shoulder pain: Status: Acute Category: Medical Code(s): M25.512 - Pain in left shoulder (3) Degenerative disc disease, cervical: Status: Acute Category: Medical Code(s): M50.30 - Other cervical disc degeneration, unspecified cervical region (4) History of fusion of cervical spine: Status: Chronic Category: Surgical Code(s): Z98.1 - Arthrodesis status Plan I did review over her cervical imaging that did show 2 levels with moderate to high-grade spinal canal compromise. I did discuss with the patient that we will still proceed forward with the pump trial option. Patient is scheduled for her psychological evaluation coming up in the next couple of weeks. I will go ahead and send her for referral to Dr. Ant hackett for evaluation of additional surgical options and send a copy of the advanced MRI findings. Patient will return to clinic in 1 month for reevaluation of symptoms and plan of care. I did reach out to Dr. Choi and we did review over the patient's medication. He did state that we can take over the pregabalin and increase this medication if needed however we would not be taking over the [place]. We will reach out to the patient and see if she would like us to proceed forward with the pregabalin prescription or just to continue her current medications as they are in [place] at this time. Risks and benefits of the medication have been explained in detail to the patient. The patient does understand the risk of dependence on the medication when given over a prolonged period. Patient has been advised of risks of oversedation with the prescribed medication. Narcan has been offered to the paitent in the event of oversedation. Patient has been advised that a family member should also be educated regarding administration of Narcan. The patient has been advised to consult with his/her primary care provider and pharmacist regarding drug-drug interaction of medications currently prescribed. Patient has been prescribed a controlled substance after being counseled on the medication, medication safety, and possible side effects. Opioid contract was reviewed and signed by the patient, and that they have agreed to all of the terms set forth by our compliance program. A UDS is needed to verify patient's compliance with our office pain contract. This is ordered based off specific treatments related to chronic pain with the potential to abuse certain medications. Patient has been instructed to contact the clinic with any concerns before the next appointment. Dr. Choi has reviewed this note and agrees with this plan of care. This note was dictated using voice recognition software and make contain errors or omissions.
--- OUTSIDE RECORDS SUMMARY | 2025-04-15 13:15 | XMS_ITS | Clinical Summary ---
Author Organization [facility] Address [address] [place] [address] Care Team Providers Care Hyperbaric Tech Name Role Phone Janes Mason MD Primary Care Provider [phone] Allergies Active Allergy Reactions Criticality Noted Date Comments Penicillins Reaction Unknown 11/13/2012 Medications Spironolactone (ALDACTONE) 100 mg tablet Take 1 Tab by mouth Twice a day. Active ALPRAZolam (XANAX) 0.5 mg tablet Take 0.5 Tabs by mouth As needed. Active NAPROXEN SODIUM (ALEVE PO) Take 1 Tab by mouth Daily as needed. Active Phentermine (ADIPEX-P) 37.5 mg tablet Take 1 Tab by mouth Daily. States she only takes when needed. Active Active Problems Problem Noted Date Diagnosed Date Anxiety 12/18/2012 Atypical chest pain 11/13/2012 Shortness of breath 11/13/2012 HTN (hypertension) 11/13/2012 Family History Medical History Relation Name Comments Heart Attack Father Relation Name Status Comments Father Mother Alive Social History Tobacco Use Types Packs/Day Years Used Date Smoking Tobacco: Never Smokeless Tobacco: Never Comments Unknown Sex and Gender Information Value Date Recorded Sex Assigned at Not on file Legal Sex Female 11:33 PM EST Gender Identity Not on file Sexual Orientation Not on file Last Filed Vital Signs Vital Sign Reading Time Taken Comments Blood Pressure 116/78 12/18/2012 9:48 AM EST Pulse 99 12/18/2012 9:48 AM EST Temperature - - Respiratory Rate 18 12/18/2012 9:48 AM EST Oxygen Saturation 97% 12/18/2012 9:48 AM EST Inhaled Oxygen Concentration - - Weight 85.6 kg (188 lb 12.8 oz) 12/18/2012 9:48 AM EST Height 162.6 cm (5' 4 ) 11/13/2012 9:02 AM EST Body Mass Index 32.41 11/13/2012 9:02 AM EST Plan of Treatment Health Maintenance Due Date Last Done Comments COLOGUARD 1967 COLONOSCOPY 1967 Colorectal Screening Combination 1967 FIT 1967 HEP C SCREENING 1967 PAP SMEAR EVERY 3 YR (Cervic al Cancer Screen) 1967 SIGMOIDOSCOPY 1967 ANNUAL WELLNESS EXAM 1970 DTAP/TDAP/TD VACCINE (1 - Tdap) 1986 Shingles Vaccine (Shingrix) (1 of 2) 2017 INFLUENZA VACCINE (Season Ended) 2025 HEP A VACCINE Aged Out No longer elig ible based on patient's age to complete this topic HIB VACCINE Aged Out No longer eligi ble based on patient's age to complete this topic ROTOVIRUS VACCINE Aged Out No longer eligible based on patient's age to complete this topic Insurance Care Teams Hyperbaric Tech Relationship Specialty Start Date End Date Janes Mason MD [address] [place] [address] PCP - General Family Medicine 11/13/12
--- OUTSIDE RECORDS SUMMARY | 2025-04-15 13:15 | XMS_ITS | Patient Health Record ---
Author Organization [facility] Address [address] [place] [address] Care Team Providers Care Lunchroom Attendant Name Role Phone Ilan Caballero [phone] Allergies Allergen (clinical drug ingredient) Drug/Non Drug Allergy documented on EMR Reaction Allergy Type Onset Date Status Tylenol with Codeine #3 nausea and vomiting Drug Allergy Active Penicillin Unknown Drug Allergy Active Reason For Referral No Information Medications Medication SIG (Take, Route, Frequency, Duration) Notes Start Date End Date Status Lyrica 100 MG 1 capsule Orally spencer ry 8 hours Active Aleve 220 MG 2tablets Orally prn Active Xanax 1 MG 1 tablet Orally TAKE ONE TABLET 30-45 MINS PRIOR TO PROCEDURE for 1 days 10/18/2021 Active Symbicort 80-4.5 MCG/ACT 2 puffs Inhalat ion Twice a day Active ProAir HFA 108 (90 Base) MCG/ACT 2 puffs as needed Inhalation prn Active Nebulizer - as directed by mouth prn Active Robaxin-750 PRN Active Immunizations Vaccine Route Administration Date Status Comme nts Pneumococcal conjugate PCV 13 Unknown 10/10/2021 Admini stered Social History Tobacco Use: Social History Observation Description Date Details (start date - stop date) Never Smoker NA - NA Tobacco Use/Smoking Question Answer Notes Are you a nonsmoker Tobacco use other than smoking: Question Answer Notes Are you an other tobacco user? No Problems Problem Type SNOMED Code ICD Code Onset Dates Problem Status W/U Status Risk Notes Problem [id number] Cervical spondylosis without myelopathy (M47.812) Active confirmed Problem Cervical post-laminectom y syndrome (307869228) Cervical post-laminectomy syndrome (M96.1) Active confirmed Problem Cervical spondylosis without myelopathy (056204716) Cervical spondylosis with radiculopathy (M47.22) Active confirmed Plan Of Treatment No Information Insurance Providers Payer Name Payer Address Payer Phone Subscriber Number Group Number Insured Name Patient Relationship to Insured Coverage Start Date Coverage End Date [employer] [address] [place] [address] [id number] Darshana Barr Self - patient is the insured Medicare [employer] Administ[employer] [address] [place] [phone] [id number] Darshana Barr Self - patient is the insured 0 [employer] [address] [place] [address] [id number] Darshana Barr Self - patient is the insured 0 Medical (General) History Medical History History ICD Code ALLERGIES ARTHRITIS ASTHMA DEPRESSION/ANXIETY EMPHYSEMA/COPD HIGH CHOLESTEROL THYROID DISEASE Surgical History Surgery Date(Month/Year) GALLBLADDER/APPENDIX 1990 TOTAL HYSTERECTOMY 2010 CERVICAL SURGERY C5-7 2017 [facility] ABORTED DUE TO SCAR TISSUE 2017 Hospitalization History Reason Date(Month/Year) DOUBLE PNEUMONIA 2017 SEPTIC SHOCK 10/2020
--- OUTSIDE RECORDS SUMMARY | 2025-04-15 13:15 | XMS_ITS | Data Portability ---
Author Organization [facility] TIFFANY Oliva ALDEN CLOSED Address [address] [facility] [address] [place] [address] Care Team Providers Care Quality Coordinator Name Role Phone CARI KRISHNA Pain Management TOM CHRISTOPHER Referring Provider [phone] Assessment Encounter Date Assessment Date Assessment LastModified by Organization Details LastModified Time 06/25/2017 06/25/2017 Ms. Barr is status post a 2 level ACDF which I performed for radiculopathy. She did well for a while only come back stating that she's had recurrent neck and arm symptoms. Her MRI scan looks fine. Her CT scan brings up the question of possible pseudoarthrosis. I don't see any major problem on the knee be her imaging. Flexion-extension x-rays showed no instability. The hardware does not look displaced. I told her the pain could be from pseudoarthrosis, generalized arthritis. There is the possibility that there are psychosocial factors going on here or malingering evening. She states that she is followed for long-term disability. I had a long and charles discussion with her prior to surgery that in general it would not support this at all. We talked about the option of undergoing posterior cervical instrumentation placement with the hope that it could help some of her neck pain of its from osteoarthritis. I told her that it's difficult to know for sure if the surgery would help. For many reasons am reluctant to do this. She is reluctant as well. She wants to wait longer. I will see her back in September the CT scan without contrast. She'll continue wearing the collar is much as possible.. She was fine with this. She's going to continue the bone stimulator. Her postoperative course has not been typical. I will leave a message with Dr. Mason to see if he would like to discuss her case. [email or web address] Not available 06/25/2017 14:01:31 10/03/2017 10/03/2017 Mrs. Barr repor ts persistent left-sided neck and arm pain. She does not appear to be in discomfort today and has full range of motion of the neck with no discomfort. She's had an MRI scan since surgery that showed no severe nerve impingement. I do think it took a while for fusion to occur but I do think the CT scan today suggests that there is been bony fusion, finally. I don't think she needs to wear her bone stimulator anymore. She has follow-up with Dr. Krishna. I don't recommend posterior surgery at this point because I do think that things a finally fused. I can see her on a when necessary basis. javon Not available 10/03/2017 15:02:00 09/05/2021 09/05/2021 HPI: Ms. Barr i s a 56yo female with history of asthma, COPD, osteoporosis, chronic neck pain, C5-[address] Benavidez November 2016 who presents today to our office for recheck of neck pain, upper extremity pain, last seen here 10/03/17, new cervical [facility]. She describes pain in her neck which radiates into her left shoulder, left upper extremity custodial to her elbow. Numbness and tingling on that left side as well as him distributional. Also some pain that radiates down between her shoulder blades. She says that after surgery, she was in the worst pain of her life for the next 10 days postoperatively, but that call down on the 11 today, and that was mainly left shoulder pain. Preop, her symptoms were almost entirely neck pain she says. Afterwards, she says it was determined that she had failed to fuse successfully and she wore a collar and a bone stimulator for 6 months. She says she's been working with pain management since, with injections that helped for short time, hydrocodone that she eventually detoxed herself from because she was tired of taking it him a and continues to take Lyrica 100 mg 3 times a day. She says she attempted a spinal cord stimulator trial which failed and cause her to have severe foot pain for over a week for which she required hospitalization. She also talked to [facility] back in 2017 and they also did not recommend revision of surgery. She says her pain is significantly better than it was immediately postop, and overall she feels like her function is acceptable, though she would like another pain management referral since Dr. Krishna's office moved and is no longer something she feels she can go to. She says she would rather treat her symptoms medically and surgically unless there is up slowly no other option due to how bad her pain was immediately postop. PHYSICAL EXAM: No neuro deficits noted IMAGING: I have reviewed the images personally with Dr. Benavidez and read the radiologist's report. Cervical MRI: Does have some degenerative changes, some graft subsidence, and some moderate stenosis, but nothing severe. She does have a little buildup of the ligament posterior to the lower fused level, but this did not appear to cause enough stenosis to be a cause of concern ASSESSMENT: Dr. Benavidez also saw this patient. Patient feels her symptoms are manageable at present, and would like to avoid surgery at all costs unless she has no quality of life otherwise. This is a reasonable position. While she has some degenerative changes, there hasn't been anything clear reason of her severe pain postoperatively. We would likewise prefer to avoid additional surgery and this patient unless there is no other good option, and we would not recommend surgery for her current state of affairs in her neck. We would like to check a CT scan to make sure her hardware looks okay and that she has fused through her cervical spine. She also assess for pain management referral and we will send her to Dr. Caballero because his office is in this building and she said she would prefer to keep her providers together. PLAN: CT cervical spine Pain management referral Dr. Caballero for medical management, intervention as needed. Follow-up as needed [email or web address] Not available 09/05/2021 14:57:45 Plan of Treatment Reminders Order Date Submit Date Provider Last Modified By Organization Details Last Modified Time Details Appointments None recorded. Lab ccp (cyclic citrullina yadira peptide) iga+igg, serum 2019 020 [facility], [address] [place] [address], [id number], 0 02:31:52 C reactive protein, QN, serum or plasma 2019 020 [facility], [address] [place] [address], [id number], 0 12:05:13 rf (rheumatoi d factor), serum 2019 [facility], [address] [place] [address], [id number], 0 12:05:16 ESR (erythrocy te sedimentat ion rate), blood 2019 020 [facility], [address] [place] [address], [id number], 0 12:07:47 uric acid, serum or plasma 2019 020 [facility], [address] [place] [address], [id number], 0 12:05:14 SHAHLA (antinucle ar antibodies ) panel, serum 2019 020 [facility], [address] [place] [address], [id number], 0 20:24:27 sjogren antibody panel, serum 2019 020 [facility], [address] [place] [address], [id number], 0 14:33:56 thyroid panel, serum 2019 020 [facility], [address] [place] [address], [id number], 0 15:14:22 hepatitis (A+B+C) panel, serum 2019 020 [facility], [address] [place] [address], [id number], 0 12:34:14 T4, total, serum 2019 020 [facility], [address] [place] [address], [id number], 0 12:08:33 T3, total, serum 2019 020 [facility], [address] [place] [address], [id number], 0 12:08:34 TSH, serum or plasma 2019 020 [facility], [address] [place] [address], [id number], 0 12:15:13 Referral None recorded. Procedures None recorded. Surgeries None recorded. Imaging CT, cervical spine, w/o contrast 2016 017 [facility], [address] [place] [address], [id number], 7 13:34:59 Medication Orders duloxetine 30 mg capsule,de layed release 2019 020 [facility] [place], [address], 0 13:36:37 Patient TargetsNo targets recorded. Patient Instructions Encounter Date Encounter Id Patient Instructions Last Modified By Organization Details Last Modified Time 06/25/2017 [id number] cervical spondylosis: care instructions JOAO Not available 06/26/2017 17:52:28 neck arthritis: exercises JOAO Not available 06/26/2017 17:52:28 10/03/2017 [id number] cervical spondylosis: care instructions JOAO Not available 10/03/2017 20:53:44 neck arthritis: exercises JOAO Not available 10/03/2017 20:53:44 Reason for Referral None Reported. Results Created Date Observation Date Name Description Value Unit Range Abnormal Flag Note LastModifiedBy Organization Detail LastModifiedTime 12/15/19 20 12/15/2019 C react kevin prote in, QN, serum or plasm a C reactive protein 0.74 mg/dL 0.00-0 .50 high Hanna ntrat ions of < 1 mg/dL exclu de many acute infla mmato ry disea ses but do not speci fical ly exclu de infla mmato ry proce sses. [place] yadira hanna ntrat ions of < 5 mg/dL in acute disea se occur in the prese nce of sligh t to moder ate infla mmato ry proce sses. Value s > 5 mg/dL indic ate high and exten sive infla mmato ry activ ity. Not Available [facility] [address] [place] [address], [id number], 12/15/2019 12:05:13 12/15/1912/15/2019 uric acid, serum or plasm a uric acid 5.2 mg/dL 2.4-5. 7 normal Not Available [facility] [address] [place] [address], [id number], 12/15/2019 12:05:14 12/15/1912/15/2019 rf (rheu matoi d facto r), serum rf screen, quant. <10.0 IU/mL 0.0-13 .9 normal Not Available [facility] [address] [place] [address], [id number], 12/15/2019 12:05:16 12/15/1912/15/2019 ESR (eryt hrocy te sedim entat ion rate) , blood ESR, automated 34 mm/HR 0-29 high Not Available [facility] [address] [place] [address], [id number], 12/15/2019 12:07:47 12/15/1912/15/2019 T4, total , serum T4 (thyroxine) 8.69 ug/dL 4.50-1 1.70 normal Not Available [facility] [address] [place] [address], [id number], 12/15/2019 12:08:32 12/15/1912/15/2019 T3, total , serum T3, total 110.0 NG/dL 80.0-2 00.0 normal Not Available [facility] [address] [place] [address], [id number], 12/15/2019 12:08:34 12/15/19 20 12/15/2019 TSH, serum or plasm a TSH 1.870 uIU/m L 0.290- 5.500 normal Not Available [facility] [address] [place] [address], [address], 12/15/2019 12:15:13 12/15/19 20 12/15/2019 hepat itis (A+B+ C) panel , serum hepatitis B surface Ag NON-RE ACTIVE non-re active normal Not Available [facility] [address] [place] [address], [id number], 12/16/2019 16:34:45 12/15/19 20 12/16/2019 hepat itis (A+B+ C) panel , serum hepatitis A Ab, IgM NON-RE ACTIVE non-re active normal For addit ional infor salvatore gunter e refer to http: //[facility] willis.milton lizamaia gnost ics.c om/fa q/FAQ 202 (This link is being provi ded for infor luci jaramillo/ educa karlee l purpo ses only. ) TEST PERFO RMED AT: [facility] [address] [facility] [place] [address] EVA Joshi MD Not Available [facility] [address] [place] [address], [id number], 12/16/2019 16:34:45 12/15/19 20 12/16/2019 hepat itis (A+B+ C) panel , serum hepatitis B core Ab,IgM NON-RE ACTIVE non-re active normal TEST PERFO RMED AT: [facility] [address] [facility] [place] [address] EVA Joshi MD Not Available [facility] [address] [place] [address], [id number], 12/16/2019 16:34:45 12/15/19 20 12/16/2019 hepat itis (A+B+ C) panel , serum hcab, reflex viral RNA qt NON-RE ACTIVE non-re active normal Not Available [facility] [address] [place] [address], [address], 12/16/2019 16:34:45 12/15/19 20 12/16/2019 hepat itis (A+B+ C) panel , serum hcab cutoff 0.03 <1.00 normal HCV antib ashish was non-r eacti ve. There is no labor atory evide nce of HCV infec tion. In most cases , no furth er actio n is requi red. Howev er, if recen t HCV expos ure is suspe cted, a test for HCV RNA (test code 87575 ) is sugge sted. For addit ional infor luci willis plecamilla e refer to http: //[facility] willis.que stdia gnost ics.c om/fa q/FAQ 22v1 (This link is being provi ded for infor luci jaramillo/ educa karlee l purpo ses only. ) TEST PERFO RMED AT: [facility] [address] [facility] [place], [place] [phone] EVA Joshi MD Not Available [facility] [address] [place] [address], [address], 12/16/2019 16:34:45 12/15/19 20 12/16/2019 sjogr en antib ashish panel , serum ss-A Ab <1.0 NEG ai <1.0 neg normal Not Available [facility] [address] [place] [address], [address], 12/16/2019 14:33:56 12/15/19 20 12/16/2019 sjogr en antib ashish panel , serum ss-B Ab <1.0 NEG ai <1.0 neg normal TEST PERFO RMED AT: [facility] [address] [facility] [place] [address] EVA Joshi MD Not Available [facility] [address] [place] [address], [address], 12/16/2019 14:33:56 12/15/19 20 12/16/2019 thyro id panel , serum thyroid peroxidase Ab 1 IU/mL <9 normal TEST PERFO RMED AT: [facility] [place] [address] [facility] [address] [place], [place] [phone] EVA Joshi MD Not Available [facility] [address] [place] [address], [address], 12/16/2019 15:14:21 12/15/19 20 12/16/2019 thyro id panel , serum thyroglobuli n Ab <1 IU/mL < or = 1 normal TEST PERFO RMED AT: [facility] [place] [address] [facility] [place] [address] EVA Joshi MD Not Available [facility] [address] [place] [address], [id number], 12/16/2019 15:14:21 12/15/19 20 12/17/2019 ccp (cycl ic citru llina yadira pepti de) iga+i gg, serum anti-ccp <16 units normal Refer ence Range Negat kevin: <20 Weak Posit kevin: 20-39 Moder ate Posit kevin: 40-59 Stron g Posit kevin: >59 TEST PERFO RMED AT: [facility] [place] [address] [facility] [place] [address] EVA Joshi MD Not Available [facility] [address] [place] [address], [address], 12/17/2019 02:31:52 12/15/19 20 12/17/2019 SHAHLA (anti nucle ar antib odies ) panel , serum SHAHLA screen NEGATI VE negati ve normal SHAHLA IFA is a first line scree n for detec ting the prese nce of up to appro ximat usama 150 autoa ntibo dies in vario us autoi mmune disea ses. A negat kevin SHAHLA IFA resul t sugge sts an SHAHLA-a ssoci ated autoi mmune disea se is not prese nt at this time, but is not defin itive . If there is high clini avinash suspi cion for Sjogr en's syndr ome, testi ng for anti- SS-A/ Ro antib ashish shoul d be consi dered . Anti- Cele-1 antib ashish shoul d be consi dered for clini sav suspe cted infla mmato ry myopa adelina . AC-0: Negat kevin Inter natio nal Conse nsus on SHAHLA Patte rns (http s://d oi.or g/10. 5235/ [facility]- 2017- 0052) For addit ional infor salvatore gunter e refer to http: //[facility].Que stDia gnost ics.c om/fa q/FAQ 177 (This link is being provi ded for infor matio nal/ educa karlee l purpo ses only. ) TEST PERFO RMED AT: [facility] [place] [address] [place], [place] [phone] EVA Joshi MD Not Available [facility] [address] [place] [address], [place], [address], 12/17/2019 20:24:27 10/03/20 17 10/03/2017 CT, cervi avinash spine , w/o contr ast [facility] [address] [place] [address], [place] [address] Steve gaytan Name: FERMIN gaytan : [id number] Steve gaytan Orderi ng Provid er: VELMA BENAVIDEZ EXAM DATE: 2016 EXAM: CT CERVIC AL WITHOU T CONTRA ST HISTOR Y: 52-yea r-old female with neck pain and left arm numbne ss. The patien t has had prior surger y. COMPAR ART: MRI and CT scan dated 5/12/2 017. Techni que: 1 mm direct axial slices were obtain ed throug h the cervic al spine. Comput er-gen erated axial, martin l, and sagitt al recons tructi ons are provid ed for interp retati on. FINDIN GS: The patien t is status post anteri or fusion from C5 throug h C7. There is beam harden ing artifa ct second rodriguez to the anteri or plate and bridgi ng screws . No hardwa re failur e is identi fied. There is no charles loosen ing of the hardwa re. There is partia l bridgi ng bone of the disc spaces . The cervic al spine is normal in alignm ent. There is no sublux ation. There is no fractu re or pathol ogic intrao sseous lesion . There is mild anteri or margin al osteop hytic spurri ng. No parasp inous soft tissue abnorm ality is identi fied. The visual ized spinal cord and sole seamer ior fossa of the brain are normal in appear ance. The cranio cervic al juncti on is normal in appear ance. There are mild degene rative change s at C1-C2. C2-C3: There is a minima l disc bulge. There is no centra l canal stenos is. There is no neural forami nal stenos is. C3-C4: There is a broad- based disc protru miguelina, mild endpla te spurri ng, and mild facet arthro berhane. There is mild centra l canal stenos is. There is mild bilate ral neural forami nal narrow ing. C4-C5: There is a mild disc bulge and mild endpla te spurri ng. There is promin ent right- sided facet arthro berhane. There is no centra l canal stenos is. There is modera te right neural forami nal narrow ing. C5-C6: There is prior fusion at this level with residu al endpla te spurri ng. There is minima l centra l canal stenos is. There is no neural forami nal stenos is. C6-C7: There is prior fusion at this level with mild residu al endpla te spurri ng. There is minima l centra l canal stenos is. There is no neural forami nal stenos is. C7-T1: This interv ertebr al disc is essent ially normal in appear ance. The visual ized thorac ic spine are essent ially normal in appear ance. IMPRES MIGUELINA: 1. The patien t is status post anteri or fusion from C5 throug h C7. There is no charles loosen ing of the hardwa re. 2. There is mild centra l canal narrow ing and mild neural forami nal narrow ing at C3-C4. 3. There is modera te right neural forami nal narrow ing at C4-C5. Interp reted By: Jose lindquist MD Electr onical ly Signed By: Jose lindquist MD on 2016 1:29 PM [email or web address] [facility] [address] [place], [address], 10/08/2017 12:55:54 12/11/19 20 04/09/2017 CT, cervi avinash spine , w/o contr ast No observ ation record ed. BARCODE [facility] [address] [place], [address], 12/11/2019 10:01:47 12/11/19 20 04/09/2017 CT, cervi avinash spine , w/o contr ast No observ ation record ed. BARCODE [facility] [address] [place], [address], 12/11/2019 10:02:40 09/06/20 21 06/06/2021 MRI, cervi avinash spine , w/o contr ast No observ ation record ed. BARCODE Not Available 2020 09:43:13 10/05/20 21 09/08/2021 CT, cervi avinash spine , w/o contr ast No observ ation record ed. JOAO Reyes (Centralized Scheduling) [address] [place] [address] , [place], [address], 10/07/2021 11:52:54 Result Notes None recorded. Problems Name Problem SNOMED Code Status Onset Date Resolution Date Notes Provider Name and Address Organization Details Recorded Time Cervical spondylos is with radiculop athy Active 2015 From Automated Load;Provi chago: Velma Benavidez;Sta tus: Active Not Available [facility] 7 02:42:32 Degenerat ion of cervical intervert ebral disc 82350154 Active 2015 From Automated Load;Provi chaog: Shelley Estevez;Sta tus: Active Not Available [facility] 6 08:00:27 Cervical spondylos is 235049409 Active 2015 From Automated Load;Provi chago: Velma Benavidez;Sta tus: Active Not Available [facility] 6 08:00:27 Problem Notes None recorded. Procedures Surgical History Date Name Laterality Status Provider Name and Address Organization Details Recorded Time 11/07/19 17 Neck Surgery completed [facility] 12/11/2016 14:07:54 Appendectomy completed [facility] 10/18/2016 14:39:47 Cholecystectomy completed [facility] 10/18/2016 14:40:04 Other completed [facility] 10/18/2016 14:40:46 Hysterectomy/revise vagina completed [facility] 10/18/2016 14:41:03 Unlisted procedure breast completed [facility] 10/18/2016 14:41:22 Imaging Results None recorded. Procedure Notes None recorded. Medical Equipment None Reported. Allergies Allergen ID Allergen Name Allergen Category Reaction Reaction Severity Criticality Documentation Date Start Date Code Code System Note Provider Name and Address Organization Details Recorded Time 375033 Tylenol medicatio n Not available Not available Not available 09/28/2016201543 3 RxNorm Comme nt: Creat ed By: Russ may Date: 2015 10:01 :09 AM; Not Available [facility] 6 09:43:19 740850 Product containin g penicilli n (product) medicatio n Not available Not available Not available 09/28/20162015 18859 8001 SNOMED Comme nt: Creat ed By: Russ may Date: 2015 10:00 :53 AM; Not Available [facility] 6 10:21:54 732638 codeine medicatio n Not available Not available Not available 09/05/2021 2670 RxNorm Oliva TiffanySUSSY hui [facility] 14:02:38 Medications Name Sig Start Date Stop Date Status Note LastModified by Organization Details LastModified Time cyclobenzap rine 10 mg tablet Take 1 tablet twice a day by oral route. 12/15 completed Not Available Not Available Not Available fluconazole 100 mg tablet active Not Available Not Available Not Available nystatin 100,000 unit/mL oral suspension active Not Available Not Available N ot Available prednisone 10 mg tablet active Not Available Not Available Not Available doxycycline hyclate 100 mg capsule active Not Available Not Available N ot Available albuterol sulfate 2.5 mg/3 mL (0.083 %) solution for nebulizatio n active Not Available Not Available Not Available benzonatate 200 mg capsule active Not Available Not Available Not Available prednisone 20 mg tablet active Not Available Not Available Not Available spironolact one 100 mg tablet Daily 04/27 completed Frequ ency: daily ;Medi catio n Descr iptio n: jey nolac tone; Dosag e:2; Route :oral ; refil ls:0 Not Available Not Available Not Available phentermine 37.5 mg tablet active Not Available Not Available Not Available sulfamethox azole 800 mg-trimetho prim 160 mg tablet active Not Available Not Available Not Available omeprazole 40 mg capsule,del ayed release Daily 04/27 completed Frequ ency: daily ;Medi catio n Descr iptio n: omepr azole ; Dosag e:1; Route :oral ; refil ls:0 Not Available Not Available Not Available alprazolam 0.5 mg tablet active Not Available Not Available Not Available methocarbam ol 750 mg tablet active Not Available Not Available Not Available Robaxin 500 mg tablet Take 1 tablet 3 times a day by oral route as directed. 2016 active prn Not Available Not Available Not Avai lable hydrocodone 7.5 mg-acetamin ophen 325 mg tablet active Not Available Not Available No t Available lansoprazol e 30 mg capsule,del ayed release active Not Available Not Available Not Available diclofenac sodium 75 mg tablet,judy yed release active Not Available Not Available Not Available montelukast 10 mg tablet Take 1 tablet every day by oral route. active Not Available Not Available No t Available hydroxyzine HCl 25 mg tablet active Not Available Not Available Not Available furosemide 20 mg tablet active Not Available Not Available Not Available ergocalcife rol (vitamin D2) 1,250 mcg (50,000 unit) capsule active Not Available Not Available Not Available albuterol sulfate HFA 90 mcg/actuati on aerosol inhaler active Not Available Not Available Not Available [place] 5 mg-325 mg tablet Take 1 tablet every day by oral route as needed. 2016 active tid Not Available Not Available Not Avai lable doxycycline hyclate 100 mg tablet active Not Available Not Available No t Available oxycodone 5 mg tablet Take 1 tablet every 4-6 hours by oral route as needed. 04/27 completed Not Available Not Available Not Available duloxetine 30 mg capsule,del ayed release Take 1 capsule every day by oral route. 2019 active Not Available Not Available Not Avai lable pregabalin 100 mg capsule Take 1 capsule 3 times a day by oral route. active Not Available Not Available No t Available Percocet 04/27 completed Not Available Not Available Not Available Symbicort 160 mcg-4.5 mcg/actuati on HFA aerosol inhaler Inhale 2 puffs twice a day by inhalatio n route. active Not Available Not Available No t Available Symbicort 04/27 completed Not Available Not Available Not Available cetirizine 10 mg capsule Take by oral route. active Not Available Not Available No t Available Spiriva Respimat 2.5 mcg/actuati on solution for inhalation active Not Available Not Available N ot Available Spiriva Respimat 1.25 mcg/actuati on solution for inhalation Inhale 2 puffs every day by inhalatio n route. active Not Available Not Available No t Available fluticasone 0.05 % lotion-emol lient combo no.65 cream, topical kit active Not Available Not Available Not Available albuterol sulf 90 mcg/actuati on breath activated powder inhaler,sen sor Inhale 2 puffs every 4 hours by inhalatio n route. active Not Available Not Available No t Available Vitals Date Recorded Body weight Body mass index (BMI) Body height Respiratory rate Heart rate Systolic blood pressure Diastolic blood pressure Provider Name and Address Organization Details Last Updated DateTime 0 18422.7 7 g 36.7 kg/m2 162.56 cm 18 /min 85 /min 120 mm[Hg] 73 mm[Hg] Lindy Ace [facility] 0 10:36:14 Date Recorded Body height Provider Name an d Address Organization Details Last Updated DateTime 04/27/2020 162.56 cm JAVAN BRAULIO, FLAGGER [address] [place], [address], [facility] 04/27/2020 13:33:00 Date Recorded Body height Body mass index (BMI) Body weight Systolic blood pressure Diastolic blood pressure Provider Name and Address Organization Details Last Updated DateTime 06/25/2017 162.56 cm 33.5 kg/m2 07760.51 g 114 mm[Hg] 70 mm[Hg] Yesi Porter [facility] 7 13:24:53 Date Recorded Body height Body mass index (BMI) Body weight Heart rate Systolic blood pressure Diastolic blood pressure Provider Name and Address Organization Details Last Updated DateTime 1 162.56 cm 36 kg/m2 69526.4 g 92 /min 131 mm[Hg] 79 mm[Hg] Oliva Tiffany [facility] 1 14:02:21 Date Recorded Body height Body mass index (BMI) Body weight Systolic blood pressure Diastolic blood pressure Provider Name and Address Organization Details Last Updated DateTime 10/03/2017 162.56 cm 33.5 kg/m2 78464.51 g 130 mm[Hg] 66 mm[Hg] Yesi Porter [facility] 7 14:20:42 Social History Question Answer Notes LastModified by Organizat ion Details LastModified Time Tobacco Smoking Status Never Smoker Yesi Porter [facility] 10/18/2016 14:42:09 What Was The Date Of Your Most Recent Tobacco Screening? 12/15/2019 [email or web address] Information not available 12/15/2019 How Much Tobacco Do You Smoke? No [email or web address] Information not available 12/15/2019 How Many Years Have You Smoked Tobacco? 0 [email or web address] Information not available 12/15/2019 Sex: Unknown Functional Status Question Answer Note LastModified by Organizat ion Details LastModified Time Do you or have you ever used smokeless tobacco? Never used smokeless tobacco [email or web address] Information not available 12/15/2019 Do you or have you ever used e-cigarettes or vape? Never used electronic cigarettes [email or web address] Information not available 12/15/2019 Mental Status None recorded. Family History Relationship Description Onset Age of this Age Resolved Age Notes LastModified by Organization Details LastModified Time Mother Cataract [email or web address] Not available 1 12/03/2016 14:20:50 Father Myocardial infarction Not available 12/25 14:30:44 Medical History Condition Response Diabetes N Bleeding Disorder N Arthritis Y Emphysema N Acid Reflux (GERD) Y Heart Disease N Rheumatoid Arthritis N Hypertension N COPD N Asthma Y Gynecological HistoryNo gynecological history recorded. Obstetrics History GPAL:G 0 P 0 0 0 0 Past Encounters Encounter ID Performer Location Encounter Start Date Encounter Closed Date Diagnosis/Indication Diagnosis SNOMED-CT Code Diagnosis ICD10 Code Diagnosis Note [id number] KRISHNA GIL MD NEUROLOGY [facility] [address] [place] [address] 10/18/2016 13:42:42 10/19/2016 08:06:37 Cervical radiculopathy 74964725 M54.12 Cervical s pondylosis with radiculopathy 884922382 M47.22 [id number] VELMA BENAVIDEZ MD NEUROSURG [facility] [address] [place] [id number] 10/18/2016 14:29:12 10/19/2016 14:14:15 Cervical spondylosis 215038671 M47.193 [id number] CORA MAHAN PA-C [facility] [address] [place] [id number] 11/13/2016 12:58:40 11/13/2016 13:57:49 Cervical radiculopathy 42701963 M54.12 Low back pain 232821491 M54.5 [id number] VELMA BENAVIDEZ MD [facility]UROSURG [facility] [address] [place] [address] 12/11/2016 12:50:59 12/11/2016 14:40:06 Cervical spondylosis with radiculopathy 758977617 M47.22 [id number] JACQUI MOSLEY MD OPHTHALMO [facility] [address] [place] [address] 12/25/2016 13:39:27 12/27/2016 09:28:16 Diplopia 77092478 H53.2 Presbyopia 69957058 H52. 4 [id number] VELMA BENAVIDEZ MD [facility]UROSURG [facility] [address] [place] [address] 03/12/2017 13:14:24 03/12/2017 14:22:08 Cervical spondylosis with radiculopathy 418271722 M47.22 [id number] VELMA BENAVIDEZ MD [facility]UROSURG [facility] [address] [place] [address] 04/25/2017 11:23:28 04/25/2017 13:03:07 Cervical spondylosis with radiculopathy 350848303 M47.22 [id number] VELMA BENAVIDEZ MD [facility]UROSURG [facility] [address] [place] [address] 06/25/2017 12:36:13 06/25/2017 14:17:37 Cervical spondylosis with radiculopathy 998836077 M47.22 Cervical spondylosis 387 042323 M47.526 [id number] VELMA BENAVIDEZ MD [facility]UROSURG [facility] [address] [place] [address] 10/03/2017 13:59:12 10/03/2017 15:37:26 Cervical spondylosis 590176098 M47.842 [id number] JAVAN RAMSEY APRN [facility] [address] [place] [address] 12/15/2019 09:54:18 12/15/2019 10:56:54 Pain of multiple joints 31897197 M25.50 chronic and recurring with worsening myalgia feeling like she has something wrong instead of just pain out of work now recurring tonsil stones jaw popping with jaw pain xerostomia will assess for sjogren's syndrome, though overall her symptomati c complaints do not suggest any further disease; will assess arthritis panel today due to worsening chronic pain it is very unlikely this is secondary to autoimmune disease; may be secondary to fibromyalg ia syndrome and oa Xerostomia 78481625 K11. 7 severe dry mouth; two cavities before age 52; teeth falling out now; dentist mentions concerns Fatigue 32370957 R53.83 worsening overall will assess thyroid panel and hepatitis panel to assess for further systemic disease [id number] JAVAN RAMSEY APRN [facility] [address] [place] [address] 04/27/2020 08:12:04 04/27/2020 14:05:49 Pain of multiple joints 47240249 M25.50 chronic and recurring with worsening myalgia feeling like she has something wrong instead of just pain out of work now recurring tonsil stones jaw popping with jaw pain xerostomia will assess for sjogren's syndrome, though overall her symptomati c complaints do not suggest any further disease; will assess arthritis panel today due to worsening chronic pain it is very unlikely this is secondary to autoimmune disease; may be secondary to fibromyalg ia syndrome and oa Xerostomia 31366458 K11. 7 severe dry mouth; two cavities before age 52; teeth falling out now; dentist mentions concerns Fatigue 37165616 R53.83 worsening overall will assess thyroid panel and hepatitis panel to assess for further systemic disease Fibromyalgia 176272121 M 79.7 chronic and recurring with worsening myalgia feeling like she has something wrong instead of just pain out of work now recurring tonsil stones jaw popping with jaw pain xerostomia will assess for sjogren's syndrome, though overall her symptomati c complaints do not suggest any further disease; will assess arthritis panel today due to worsening chronic pain it is very unlikely this is secondary to autoimmune disease; may be secondary to fibromyalg ia syndrome and oa will have her add cymbalta 30 mg qd to her regimen and assess her outcome in 3 months or sooner prn [id number] MATTHEW DONAHUE PA-C [facility]URG [facility] [address] [place] [address] 09/05/2021 12:53:38 09/06/2021 09:26:09 Cervical radiculopathy 18984271 M54.12 Health Concerns Section Related Observation LastModified by Organization Detai ls LastModified Time None Recorded Concern Status LastModified by Organization Details LastModified Time None Recorded Advance Directives Directive None Recorded Payers Insurance Date Sequence Insurance Name Policy Number Policy Esteban Covered Member ID Esteban Member ID Guarantor Name 09/04/2021 3 [place] [id number] Fermin Barr [id number] Fermin Barr 09/16/2024 1 [place] [id number] Ja Barr [id number] Fermin Barr 09/04/2021 2 [place] Fermin Barr [id number] Fermin Barr Notes Date Note Type Note Provider Name and Address Organization Details Recorded Time 06/25/2017 text/html I saw Fermin devi in follow-up. I performed a C5-6 C6-7 anterior cervical discectomy fusion in November 2016. She did well for a while. She came back at the last couple of visits complaining of recurrent neck pain and left arm pain. I last saw her in April. Her arm pain had resolved definite epidural but she is having neck pain. She's had 2 CT scans since surgery that do not show bony fusion. She had an MRI scan in March which looked fine. There is no bone edema. At the last visit she was having neck pain. I talked her about the option of undergoing posterior cervical surgery. I performed flexion-extension x-rays which were negative. I placed her in a collar. I had her start a bone stimulator. She is using the bone stimulator. She's using a collar. She states collar helps. She's working with Dr. Krishna. She takes a muscle relaxant and anti-inflammatory hydrocodone twice a day and citalopram. She states that she went back to work but fell asleep at work and when driving a car. She's not worked since May or so. She's filed for long-term disability. VELMA BENAVIDEZ MD [facility] [place], [address], [facility] 06/25/2017 14:03:07 10/03/2017 text/html Dear Dr. Mason, I saw Fermin Barr in follow-up.I last saw on June 25, 2017. I performed a C5-6 C6-7 anterior cervical discectomy fusion on November 07, 2016. She's had persistent symptoms since surgery. She describes neck pain and her left upper extremity pain since surgery. I'm seeing her back today with a CT scan. Her past CT scans did not show clearcut bony fusion. She comes back today stating that she has lots of left-sided neck pain posterior laterally. It radiates in the left trapezius and scapular region and down the posterior arm into the hand. She takes multiple medications. She sees Dr. Krishna. She went to [facility] in July and no surgical recommendation was made. She continues to wear her bone stimulator. She wears a collar at night. VELMA BENAVIDEZ MD [address] [place], [address], [facility] 10/03/2017 15:02:34 12/15/2019 text/html 54 yo pleasant f e, new patient here for initial evaluation and consultation at the request of Dr. Krishna for multiple joint pain; she reports no known family history of autoimmune; depression and fatigue worsening; dry mouth; soft tissue pain history of neck surgery with cervical cage per Dr. 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 Patient has expressed an understanding of the telehealth process and has consented. 54 yo pleasant fe, f/u after being seen for joint pain-autoimmune labs are normal and negative for inflammatory disease; she reports no known family history of autoimmune; depression and fatigue worsening; dry mouth; soft tissue pain history of neck surgery with cervical cage per Dr. 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 Barr is a [age]yo female with history of asthma, COPD, osteoporosis, chronic neck pain, C5-[address] Benavidez November 2016 who presents today to our office for recheck of neck pain, upper extremity pain, last seen here 10/03/17, [facility]. She describes pain in her neck which radiates into her left shoulder, left upper extremity custodial to her elbow. Numbness and tingling on that left side as well as him distributional. Also some pain that radiates down between her shoulder blades. She says that after surgery, she was in the worst pain of her life for the next 10 days postoperatively, but that call down on the today, and that was mainly left shoulder pain. Preop, her symptoms were almost entirely neck pain she says. Afterwards, she says it was determined that she had failed to fuse successfully and she wore a collar and a bone stimulator for 6 months. She says she's been working with pain management since, with injections that helped for short time, hydrocodone that she eventually detoxed herself from because she was tired of taking it him a and continues to take Lyrica 100 mg 3 times a day. She says she doesn't smoke with stimulator trial which failed and cause her to have severe foot pain for over a week for which she required hospitalization. She also talked to [facility] back in 2017 and also did not recommend revision of surgery. She says her pain is significantly better than it was immediately postop, and overall she feels like her function is acceptable, though she would like another pain management referral since Dr. Krishna's office moved and is no longer something she feels she can go to. She says she would rather treat her symptoms medically and surgically unless there is up slowly no other option due to how bad her pain was immediately postop. MATTHEW DONAHUE PA-C [address] [place], [address], [facility] 09/05/2021 14:57:55 OBGyn Episode No OBEpisode recorded.
--- OUTSIDE RECORDS SUMMARY | 2025-04-15 13:15 | XMS_ITS | Clinical Summary ---
Author Organization [facility] Address [address] [place] [address] Phone Care Team Providers Care Engineering Research Manager Name Role Phone Janes Mason Primary Care Provider [phone] Allergies Active Allergy Reactions Criticality Noted Date Comments Penicillins 04/09/2017 Medications traMADol (ULTRAM) 50 mg Oral Tablet Take 50 mg by mouth 2 times daily. Active cyclobenzaprine (FLEXERIL) 10 mg Oral Tablet Take 10 mg by mouth 3 times daily as needed for Muscle spasms. Active Surgical History Surgery Date Site/Laterality Comments CERVICAL SPINE SURGERY SEPTOPLASTY HYSTERECTOMY CHOLECYSTECTOMY APPENDECTOMY Medical History Medical History Date Comments Asthma Endometriosis Social History Tobacco Use Types Packs/Day Years Used Date Smoking Tobacco: Never Alcohol Use Standard Drinks/Week Comments Yes 0 (1 standard drink = 0.6 oz pur e alcohol) rarely Comments No Sex and Gender Information Value Date Recorded Sex Assigned at Not on file Legal Sex Female 12:43 PM EDT Gender Identity Not on file Sexual Orientation Not on file Obstetrics History Last Filed Vital Signs Vital Sign Reading Time Taken Comments Blood Pressure 104/67 04/09/2017 3:41 PM EDT Pulse 85 04/09/2017 3:59 PM EDT Temperature 36.7 C (98 F) 04/09/2017 12:48 PM EDT Respiratory Rate 14 04/09/2017 3:59 PM EDT Oxygen Saturation 98% 04/09/2017 3:59 PM EDT Inhaled Oxygen Concentration - - Weight 88.5 kg (195 lb) 04/09/2017 12:48 PM EDT Height 162.6 cm (5' 4 ) 04/09/2017 12:48 PM EDT Body Mass Index 33.47 04/09/2017 12:48 PM EDT Plan of Treatment Health Maintenance Due Date Last Done Comments Annual Wellness Exam 1970 DTaP/TDaP/Td (1 - Tdap) 1986 Hepatitis B Vaccine (1 of 3 - 19+ 3-dose series) 1986 Cervical Cancer Screening 1988 Pap Smear 1988 HPV/Pap Cotest 1997 Breast Cancer Screening 2007 Cologuard 2012 Colon Cancer Screening 2012 Colonoscopy 2012 FIT 2012 Sigmoidoscopy 2012 Virtual Colonography 2012 Pneumococcal Vaccine 50+ (1 of 1 - PCV) 2017 Zoster (1 of 2) 2017 COVID-19 Vaccine (1 - 2023-2 5 season) 2024 Influenza Vaccine (Season Ended) 2025 Meningococcal B Vaccine Aged Out No l onger eligible based on patient's age to complete this topic Insurance PPO [facility] PPO Care Teams Engineering Research Manager Relationship Specialty Start Date End Date Janes Mason [address] [place] [address] PCP - General Family Medicine 04/09/17
--- OUTSIDE RECORDS SUMMARY | 2025-04-15 13:15 | XMS_ITS | Continuity of Care Document ---
Author Organization [facility] [place] [facility] Address [address] [facility] [address] [place] [address] Care Team Providers Care Hha Name Role Phone REYES BRONSON Primary Care Provider Assessment No assessment recorded. Plan of Treatment Reminders Order Date Submit Date Provider Last Modified By Organization Details Last Modified Time Details Appointments Establish ed Visit 15 min 2024 10:00A M AVRIL CHAIREZ NP Not available Not available Not available Lab None recorded. Referral None recorded. Procedures None recorded. Surgeries None recorded. Imaging None recorded. Medication Orders hydrocodo ne 7.5 mg-acetam inophen 325 mg tablet 2024 025 [facility] [id number], [address] [place] [address] , [place], [address], 03/01/2025 11:12:40 meloxicam 15 mg tablet 2024 025 [facility] [id number], [address] [place] [address] , [place], [address], 03/01/2025 11:12:34 pregabali n 50 mg capsule 2024 025 [facility] [id number], [address] [place] [address] , [place], [address], 03/01/2025 11:12:39 Narcan 4 mg/actuat ion nasal spray 2024 025 [facility] [id number], [address] [place] [address] , [place], [address], 03/01/2025 11:13:18 Patient TargetsNo targets recorded. Patient Instructions Encounter Date Encounter Id Patient Instructions Last Modified By Organization Details Last Modified Time 03/01/2025 [id number] Consider cervica l epidural [id number] Not available 03/01/2025 11:12:48 Reason for Referral None Reported. Medical Equipment None Reported. Allergies Allergen ID Allergen Name Allergen Category Reaction Reaction Severity Criticality Documentation Date Start Date Code Code System Note Provider Name and Address Organization Details Recorded Time Product containin g penicilli n (product) medicatio n Not available Not available unabletoasse 12/21/2024 94672 8001 [facility]ED [facility] [place] 10:35:50 Medications Name Sig Start Date Stop Date Status Note LastModified by Organization Details LastModified Time atorvastati n 40 mg tablet active Not Available Not Available Not Available doxycycline hyclate 100 mg capsule TAKE 1 CAPSULE BY MOUTH TWICE DAILY FOR 10 DAYS 12/21 completed Not Available Not Available Not Available ipratropium 0.5 mg-albutero l 3 mg (2.5 mg base)/3 mL nebulizatio n soln USE 3 ML IN NEBULIZER EVERY 6 HOURS NEEDED FOR WHEEZING active Not Available Not Available No t Available azithromyci n 250 mg tablet TAKE 2 TABLETS BY MOUTH ON DAY 1, AND THEN TAKE 1 TABLET BY MOUTH ONCE A DAY ON DAY 2 THROUGH DAY 5 12/21 completed Not Available Not Available Not Available benzonatate 200 mg capsule TAKE 1 CAPSULE BY MOUTH THREE TIMES DAILY NEEDED FOR COUGH FOR UP TO 7 DAYS. active Not Available Not Available No t Available meloxicam 15 mg tablet Take 1 tablet every day by oral route. 2024 active Not Available Not Available Not Avai lable ondansetron HCl 4 mg tablet TAKE 1 TABLET BY MOUTH EVERY 8 HOURS NEEDED FOR NAUSEA AND VOMITING active Not Available Not Available No t Available prednisone 20 mg tablet TAKE 2 TABLETS BY MOUTH ONCE DAILY 12/21 completed Not Available Not Available Not Available triamcinolo ne acetonide 0.1 % dental paste APPLY TO DENTAL AREA TWICE A DAY FOR 7 DAYS - USE AFTER FOOD AND/OR DRINK AND/OR ORAL HYGIENE active Not Available Not Available No t Available benzonatate 100 mg capsule TAKE 1 CAPSULE BY MOUTH TWICE DAILY NEEDED FOR COUGH FOR 2 WEEKS active Not Available Not Available No t Available hydrocodone 7.5 mg-acetamin ophen 325 mg tablet Take 1 tablet 3 times a day by oral route. 2024 active Not Available Not Available Not Avai labaletha cephalexin 500 mg capsule TAKE 1 CAPSULE BY MOUTH THREE TIMES DAILY 12/21 completed Not Available Not Available Not Available dexamethaso ne 4 mg tablet TAKE 2 TABLETS BY MOUTH ONCE DAILY ON DAYS 2,3, AND 4 AFTER TREATMENT 12/21 completed Not Available Not Available Not Available fluoxetine 10 mg capsule active Not Available Not Available Not Available lidocaine HCl 2 % mucosal solution APPLY TO THE AFFECTED MUCOSAL AREA FOUR TIMES A DAY NEEDED FOR PAIN 12/21 completed Not Available Not Available Not Available montelukast 10 mg tablet TAKE 1 TABLET BY MOUTH ONCE DAILY active Not Available Not Available No t Available methylpredn isolone 4 mg tablets in a dose pack TAKE BY MOUTH DIRECTED ON INSIDE OF PACKAGE 12/21 completed Not Available Not Available Not Available albuterol sulfate HFA 90 mcg/actuati on aerosol inhaler INHALE 2 PUFFS BY MOUTH EVERY 6 HOURS NEEDED FOR SHORTNESS OF BREATH OR WHEEZING active Not Available Not Available No t Available fluticasone propionate 50 mcg/actuati on nasal spray,suspe nsion USE 2 SPRAY(S) IN EACH NOSTRIL ONCE DAILY active Not Available Not Available No t Available doxycycline hyclate 100 mg tablet TAKE ONE TABLET BY MOUTH EVERY TWELVE HOURS FOR 3 DAYS -- FINISH ALL MEDICINE -- active Not Available Not Available No t Available amoxicillin 500 mg-potassiu m clavulanate 125 mg tablet TAKE 1 TABLET BY MOUTH EVERY 8 HOURS FOR 5 DAYS 12/21 completed Not Available Not Available Not Available pregabalin 50 mg capsule Take 1 capsule twice a day by oral route. 2024 active Not Available Not Available Not Twin osria guaifenesin ER 600 mg tablet, extended release 12 hr TAKE TWO TABLETS BY MOUTH TWICE DAILY NEEDED FOR congestio n active Not Available Not Available No t Available Narcan 4 mg/actuatio n nasal spray Take 1 spray by nasal route. 2024 active Not Available Not Available Not Twin estella Breztri Aerosphere 160 mcg-9mcg-4. 8mcg/actuat ion HFA aerosol inhaler INHALE 2 PUFFS BY MOUTH TWICE DAILY 12/21 completed Not Available Not Available Not Available Breyna 160 mcg-4.5 mcg/actuati on HFA aerosol inhaler INHALE 2 PUFFS BY MOUTH TWICE DAILY active Not Available Not Available No t Available Airsupra 90 mcg-80 mcg/actuati on HFA aerosol inhaler INHALE 2 PUFFS BY MOUTH EVERY 6 HOURS NEEDED FOR SHORTNESS OF BREATH OR WHEEZING active Not Available Not Available No t Available Vitals Date Recorded Body temperature Oxygen saturation Oxygen saturation in Arterial blood by Pulse oximetry Heart rate Respiratory rate Systolic blood pressure Diastolic blood pressure Provider Name and Address Organization Details Last Updated DateTime 98.2 [degF] 96 % 96 % 84 /min 16 /min 124 mm[Hg] 60 mm[Hg] Malgorzata Joyce [facility] & [place] 5 10:54:52 Social History None recorded. Functional Status None recorded. Mental Status None recorded. Family History Nothing Reported. Medical History No medical history recorded. Gynecological HistoryNo gynecological history recorded. Obstetrics History GPAL:G 0 P 0 0 0 0 Past Encounters Encounter ID Performer Location Encounter Start Date Encounter Closed Date Diagnosis/Indication Diagnosis SNOMED-CT Code Diagnosis ICD10 Code Diagnosis Note [id number] [facility]OL[facility] [address] [address] 03/01/2025 10:46:00 03/01/2025 11:09:11 Cervical radiculopathy 49284519 M54.12 Cervical spondylosis 387 557281 M47.812 Chronic neck pain 609921 6961 107 M54.2 Lumbar radiculopathy 128 289421 M54.16 History of cervical spine fusion 1484112123 101 Z98.1 Health Concerns Section Related Observation LastModified by Organization Detai ls LastModified Time None Recorded Concern Status LastModified by Organization Details LastModified Time None Recorded Payers Encounter Date Sequence Insurance Name Policy Number Policy Esteban Covered Member ID Esteban Member ID Guarantor Name 03/01/2025 1 [place] Darshana Barr [id number] Darshana Barr 03/01/2025 2 [facility] PRE[place] - FEP 111 Darshana Barr [id number] Darshana Barr Notes Date Note Type Note Provider Name and Address Organization Details Recorded Time 03/01/2025 text/html 59 yo female in for f/u for neck and left shoulder pain. Pain is rated at a 5/10 and has been a 7/10 in the last month. Pain is constant, dull, burning and aching. Pain radiates down LUE and does not cause any weakness. Does not cause bowel or bladder loss. She also has low back pain at times, she has had a cervical fusion and constant radicular pain down the L arm. She still has her horses and says she hopes to ride this summer if she can. She recently had a bout with pneumonia and was in the hospital with sepsis. She is doing better now. AVRIL CHAIREZ, [employer] [address] [facility] , [place], [address], [facility] [place] & [place] 03/01/2025 11:13:35 OBGyn Episode No OBEpisode recorded.
--- OUTSIDE RECORDS SUMMARY | 2025-04-15 13:15 | XMS_ITS | Clinical Summary ---
Author Organization Healthcare Address [address] [id number] Care Team Providers Care Air Quality Engineer Name Role Phone Janes Mason MD Primary Care Provider [phone] Social History Tobacco Use Types Packs/Day Years Used Date Smoking Tobacco: Never Assessed Comments Unknown Sex and Gender Information Value Date Recorded Sex Assigned at Not on file Legal Sex Female 7:11 PM EDT Gender Identity Not on file Sexual Orientation Not on file Plan of Treatment Health Maintenance Due Date Last Done Comments [facility]-Depression Screening 1967 [facility]-Infant/Child/Adol SDOH Screenings 1967 [facility]- SDOH Screenings 1985 [facility]-Adult SDOH Screenings 1985 [facility]-DTaP,Tdap,and Td Vaccine s (1 - Tdap) 1986 [facility]-Hepatitis B Vaccines (1 of 3 - 19+ 3-dose series) 1986 [facility]-Pap Smear 1988 [facility]-Cervical Cancer Screening 1997 [facility]-HPV/Cotest 1997 CT Colonography 2012 Colonoscopy 2012 FIT-DNA 2012 FIT 2012 FOBT 2012 Sigmoidoscopy 2012 [facility]-Colorectal Cancer Screening 2012 [facility]-Zoster Vaccines (1 of 2) 2017 [facility]-Pneumococcal Vaccine: 50 + Years (2 of 2 - PPSV23) 10/24/2019 10/24/2018 [id number] Vaccine ( season) 2024 09/14/2021, 02/24/2021, 01/10/2021 [facility]-Influenza Vaccine (Seaso n Ended) 2025 HPV Vaccines Aged Out No longer eligi ble based on patient's age to complete this topic [facility]-HIB Vaccines Aged Out No longer e ligible based on patient's age to complete this topic [facility]-Hepatitis A Vaccines Aged Out No longer eligible based on patient's age to complete this topic [facility]-IPV Vaccines Aged Out No longer e ligible based on patient's age to complete this topic [facility]-Rotavirus Vaccines Aged Out No lo nger eligible based on patient's age to complete this topic Insurance [facility] [place] [address] Care Teams Air Quality Engineer Relationship Specialty Start Date End Date Janes Mason MD [address] [place] [address] PCP - General 03/17/21
--- OUTSIDE RECORDS SUMMARY | 2025-04-15 13:15 | XMS_ITS | Encounter Summary ---
Author Organization Healthcare Address [address] [place] [address] Care Team Providers Care Electroplating Laborer Name Role Phone Janes Mason MD Primary Care Provider Encounter Details Date Type Department Care Team (Late st Contact Info) Description 02/28/2023 [facility] [address] [place] [address] Bud Shea MD [address] [facility], [address] [address] Other headache syndrome (Primary Dx) Social History Tobacco Use Types Packs/Day Years Used Date Smoking Tobacco: Never Assessed Comments Unknown Sex and Gender Information Value Date Recorded Sex Assigned at Not on file Legal Sex Female 7:11 PM EDT Gender Identity Not on file Sexual Orientation Not on file documented as of this encounter Plan of Treatment Not on file documented as of this encounter Visit Diagnoses Diagnosis Other headache syndrome- Primary documented in this encounter Care Teams Electroplating Laborer Relationship Specialty Start Date End Date Janes Mason MD [address] [place] [address] PCP - General 03/17/21 documented as of this encounter
--- OUTSIDE RECORDS SUMMARY | 2025-04-15 13:16 | XMS_ITS | Data Portability ---
Author Organization [facility] Address [address] [place] [address] Care Team Providers Care Quality Assurance Supervisor Chassis Name Role Phone REYSE BRONSON Primary Care Provider Assessment No assessment [...] mg-acetam inophen 325 mg tablet [address] [facility] [id number], [address] [place] [address] [place], [address], 03/01/2025 11:12:40 meloxicam 15 mg tablet [address] [facility] [id number], [address] [place] [address] [place], [address], 03/01/2025 11:12:34 pregabali n 50 mg capsule [address] [facility] [id number], [address] [place] [address] [place], [address], 03/01/2025 11:12:39 Narcan 4 mg/actuat ion nasal spray [address] [facility] [id number], [address] [place] [address] [place], [address], 03/01/2025 11:13:18 Patient TargetsNo targets recorded. Patient InstructionsNo instructions recorded. Reason for Referral None Reported. Medical Equipment None Reported. Allergies Allergen ID Allergen Name Allergen Category Reaction Reaction Severity Criticality Documentation Date Start Date Code Code System Note Provider Name and Address Organization Details Recorded Time Product containin g penicilli n (product) medicatio n Not available Not available unabletoasse 12/21/2024 24871 8001 [facility]ED [facility] [place] [facility] [place] & [place] 10:35:50 Medications Name Sig Start Date Stop [...] Not Available Not Available Not Avai lable cephalexin 500 mg capsule TAKE 1 CAPSULE [...] Not Available No t Available amoxicillin 500 mg-abi m clavulanate 125 mg tablet TAKE 1 TABLET BY MOUTH EVERY 8 HOURS FOR 5 DAYS 12/21 completed Not Available Not Available Not Available pregabalin 50 mg capsule Take 1 capsule twice a day by oral route. 2024 active Not Available Not Available Not Avai labaletha guaifenesin ER 600 mg tablet, extended release 12 hr TAKE TWO TABLETS BY MOUTH TWICE DAILY NEEDED FOR congestio n active Not Available Not Available No t Available Narcan 4 mg/actuatio n nasal spray Take 1 spray by nasal route. 2024 active Not Available Not Available Not Avai labaletha Breztri Aerosphere 160 mcg-9mcg-4. 8mcg/actuat ion HFA [...] and Address Organization Details Last Updated DateTime 5 98.2 [degF] 96 % 96 % 84 /min 16 /min 124 mm[Hg] 60 mm[Hg] Malgorzata Joyce [facility] & [place] 5 10:54:52 Social History None recorded. Functional Status None recorded. Mental Status None recorded. Family History Nothing Reported. Medical History No medical history recorded. Gynecological HistoryNo gynecological history recorded. Obstetrics History GPAL:G 0 P 0 0 0 0 Past Encounters Encounter ID Performer Location Encounter Start Date Encounter Closed Date Diagnosis/Indication Diagnosis SNOMED-CT Code Diagnosis ICD10 Code Diagnosis Note [id number] RADHA NOYOLA [facility] [address] [facility] [address] [address] 12/21/2024 10:33:09 12/21/2024 10:56:08 Cervical radiculopathy 42868144 M54.12 Cervical spondylosis 387 118792 M47.812 Chronic neck pain 709328 6426 107 M54.2 Lumbar radiculopathy 128 845560 M54.16 [id number] RADHA NOYOLA [facility] [address] [facility] [address] [address] 03/01/2025 10:46:00 03/01/2025 11:09:11 Cervical radiculopathy 30600731 M54.12 Cervical spondylosis 387 915796 M47.812 Chronic neck pain 183829 8425 107 M54.2 Lumbar radiculopathy 128 215591 M54.16 History of cervical spine fusion 0298869599 101 Z98.1 Health Concerns Section Related Observation LastModified by Organization Detai ls LastModified Time None Recorded Concern Status LastModified by Organization Details LastModified Time None Recorded Advance Directives Directive None Recorded Payers Insurance Date Sequence Insurance Name Policy Number Policy Esteban Covered Member ID Etseban Member ID Guarantor Name 04/01/2025 2 [employer] 111 Darshana Barr [id number] Darshana Barr 02/26/2025 [place] A - [facility]BB (MEDICARE) Darshana Barr [id number] 3 Darshana Barr 02/26/2025 1 [place] Darshana Barr [id number] Darshana Barr Notes Date Note Type Note Provider Name and Address Organization Details Recorded Time 12/21/2024 text/html 59 yo female on telehealth visit for f/u for neck and back pain. Pain is rated at a 4/10 and has been a 7/10 in the last month. Pain is constant, dull and aching. Pain radiates down LUE and does not cause any weakness. Does not cause bowel or bladder loss. Pain at rest: 2/10Pain with activity: 7/10Do you feel down, depressed or hopeless: NoDo you have little interest in doing things: NoFalls with injury in the last year: NoDo you use tobacco products: NoLevel of alcohol level: does not consume AVRIL CHAIREZ NP [address], [place], [address], [facility] & [place] 12/21/2024 10:59:44 03/01/2025 text/html 59 yo female in for [...] with sepsis. She is doing better now. RADHA NOYOLA Dr, [place], [address], [place] - [facility] - [place] & [place] 03/01/2025 11:13:35 OBGyn Episode No OBEpisode recorded.
== END 2025-04-15 23:59 | disposition home or self-care (01) ==
LOC: SC.PAIN 11:26
PROVIDERS: PCP Family Medicine; Visit Provider Nurse Practitioner Family
DX: G89.4 Chronic pain syndrome (principal); M25.512 Pain in left shoulder; M50.30 Other cervical disc degeneration, unspecified cervical region; Z98.1 Arthrodesis status; Z79.891 Long term (current) use of opiate analgesic; Z79.899 Other long term (current) drug therapy; Z98.890 Other specified postprocedural states
CPT/HCPCS: 99212; G0463

== ENCOUNTER 2025-06-11 10:07 | Outpatient (CLI) | payer MEDICARE, BC, SELFPAY ==
--- OUTSIDE RECORDS SUMMARY | 2021-10-13 10:53 | XMS_ITS | Encounter Summary ---
[facility] Address [address] [place] [address] Care Team Providers Care Head Of Product Name Role Phone Janes Mason MD Primary Care Provider [phone] Reason for Visit * Diagnostic Imaging (Routine) - Closed Specialty Diagnoses / Procedures Referred By Contac t Referred To Contact Radiology Diagnoses Nontoxic multinodular goiter Procedures US Thyroid Raeann Carlson MD [address] [place] [address] Phone: tel: fax: [facility] [address] [place] [phone] Phone: tel: fax: Referral ID Status Reason Start Date Expiration Date Visits Re quested Visits Authorized [id number] Closed 10/13/2021 10/13/2022 1 1 Encounter Details Date Type Department Care Team (Late st Contact Info) Description 10/13/2021 9:53 AM EST Hospital Encounter [facility] [address] [place] [phone] Social History Tobacco Use Types Packs/Day [...] on filedocumented in this encounter Care Teams Head Of Product Relationship Specialty Start Date End Date Janes Mason MD [address] [place] [address] PCP - General Family Medicine 07/11/21 documented as of this encounter
--- OUTSIDE RECORDS SUMMARY | 2025-06-11 10:11 | XMS_ITS | Encounter Summary ---
Author Organization [facility] ([place], [place], [place], [place]) Address [address] [place] [address] Care Team Providers Care Disassembler Product Name Role Phone Unavailable Primary Care Provider Unavailabl e Encounter Details Date Type Department Care Team (Late st Contact Info) Description 09/02/2020 Transcribed Document [facility] Family Medicine [address] [place] [address] ProviderDarrell MD [address] [place] [address] Social History Tobacco Use Types Packs/Day Years Used Date Smoking Tobacco: Never Assessed Comments Unknown Sex and Gender Information Value Date Recorded Sex Assigned at Not on file Legal Sex Female 6:16 PM CDT Gender Identity Not on file Sexual Orientation Not on file documented as of this encounter Miscellaneous Notes * Cerner Conversion Note - Historical ProviderMD - 09/02/2020 10:13 AM CDT DATE OF ADMISSION: 08/30/2020 HISTORY OF PRESENT ILLNESS: This is a 55-year-old female with a chief complaint of chronic neck pain for several years' duration who is seen today for a followup visit. The patient is following up today for medication refills. She reports she continues to have mild neck pain. She says her medication gives her 100% relief. She says her pain is a deep aching sensation when she has the pain. She reports that she also uses ice to help with the pain. She is taking Ashland 3 times daily as needed and Lyrica 3 times daily. She says that the use of the medication makes her more functional and able to do the things that she needs to do inside and outside the home. She says that she tolerates it well. She is also taking Cymbalta 60 mg daily and Robaxin as needed. She denies any adverse effects including toxic effect, sedation, driving problems, or GI problems. She also does take diclofenac twice daily and denies any adverse effects. The patient says without the medication, she would not be able to do any functional activities at home. REVIEW OF SYSTEMS: Constitutional, respiratory, cardiovascular, ophthalmology, gastrointestinal, genitourinary, ENT, musculoskeletal, integumentary, neurology, psychiatry, endocrine, hematology were not changed from her last visit on August 03, 2020. PHYSICAL EXAMINATION: VITAL SIGNS: Blood pressure 129/70, heart rate 93, respiratory rate 16, O2 saturation 98%, temperature 97.6. Pain level 3. Hours of sleep 8. No change in physical and neurological exam. Muscle tone, power, sensory, and deep tendon reflexes were unchanged. The nurse's notes, vital signs, and medication were reviewed and evaluated. No sign of impairment or toxicity to medicine. The patient psych evaluation, urine drug screen, and BLAKE were appropriate for taking opioid medication. ASSESSMENT: 1. Chronic neck pain secondary to degenerative joint disease and degenerative disk disease of the cervical spine. 2. Cervical radiculopathy. 3. Cervical spondylosis. 4. Failed neck surgery. 5. Multiple myofascial pain. 6. Insomnia. 7. Osteoarthritis. 8. Long-term opioid use. 9. Long-term use of Lyrica. 10. Intermittent opioid-induced constipation. 11. Status post spinal cord stimulator, failed trial 2017. PLAN: 1. The patient has been fairly well controlled on current medication. The patient has a good compliance with pain clinic regulation in regard to urine drug screen, BLAKE, psych evaluation. We spent more than half of the time discussing the risks, benefits of the medication, how to keep it in a safe place, not to share with other people, not to mix with alcohol, or self-escalate it. 2. Continue Ashland 7.5/325 mg 3 times daily as needed. 3. Continue Lyrica 100 mg 3 times daily. 4. I have educated the patient to use non-pharmacologic measures to alleviate pain prior to using as needed opioid medication such as heat, ice, rest, relaxation, repositioning, exercise, stretches, TENS unit and/or massage. 5. Continue Robaxin 750 mg 3 times daily as needed. The patient usually takes one at bedtime routinely. 6. Continue compound cream 4 times daily as needed. 7. Continue Movantik 25 mg daily as needed. 8. Continue diclofenac 75 mg twice daily. 9. Continue Cymbalta 60 mg daily. 10. We are going to see the patient back in 1 month to re-evaluate. 11. The assessment and plan for today's visit have been reviewed by Dr. Krishna, however, I have prescribed the medications for this patient's treatment plan today. The patient has been screened for symptoms or risk factors related to COVID-19 both prior to arrival for the visit and upon arrival at the clinic for the visit today. No risk factors or symptoms are identified at today's visit and the patient has been afebrile. /[id number] FLOYD Mullins/MIRIAN / PITA / MODL CC: Janes Mason MD Electronically signed by Landon Grubbs Conversion Tumble Tailstock Turret Lathe Operator Cerner at 02/18/2023 4:59 PM CDT documented in this encounter Plan of Treatment Not on file documented as of this encounter Visit Diagnoses Not on filedocumented in this encounter
--- OUTSIDE RECORDS SUMMARY | 2025-06-11 10:11 | XMS_ITS | Encounter Summary ---
Author Organization [employer] ([place], [place], [place], [place]) Address [address] [place] [address] Care Team Providers Care Attendant Honor Bar Name Role Phone Unavailable Primary Care Provider Unavailabl e Encounter Details Date Type Department Care Team (Late st Contact Info) Description 06/27/2020 Transcribed Document [facility] [place] [facility] [place] [address] ProviderDarrell MD [address] [place] [id number] Social History Tobacco Use Types Packs/Day Years Used Date Smoking Tobacco: Never Assessed Comments Unknown Sex and Gender Information Value Date Recorded Sex Assigned at Not on file Legal Sex Female 6:16 PM CDT Gender Identity Not on file Sexual Orientation Not on file documented as of this encounter Miscellaneous Notes * Cerner Conversion Note - Historical ProviderMD - 06/27/2020 3:09 PM CDT DATE OF ADMISSION: 06/27/2020 HISTORY OF PRESENT ILLNESS: This is a 55-year-old female with a chief complaint of chronic neck pain for several years' duration who is seen today for a followup visit. The patient is following up today for medication management and refills. She reports that she continues to have moderate neck pain on the left greater than the right. She says it is a deep aching sensation and feels like she has broken bones. She says that her medication gives her about 85% relief. She says that she has been having more anxiety associated with her pain as well as depression. She is on duloxetine 30 mg daily. She is asking if we can increase that if possible. The patient is also taking her Amarillo 3 times daily as needed and her Lyrica 3 times daily. She says that she has also been using diclofenac twice daily. The patient says that she uses her medication exactly as prescribed and that it does make her more functional and able to do the things that she needs to do inside and outside the home. She is also taking Robaxin as needed. 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 She says that she does not have any adverse effects for her medicine including toxic effect, sedation, driving problems, or GI problems. REVIEW OF SYSTEMS: Constitutional, respiratory, cardiovascular, ophthalmology, gastrointestinal, genitourinary, ENT, musculoskeletal, integumentary, neurology, psychiatry, endocrine, hematology were not changed from her last visit on May 10, 2020. PHYSICAL EXAMINATION: VITAL SIGNS: Blood pressure 141/67 weight 211, height 64 inches, heart rate 86, respiratory rate 16, O2 saturation 98%, temperature 97.9. Pain level 5. Hours of sleep 8. No change in [...] disk disease of the cervical spine. 2. Failed neck surgery. 3. Cervical radiculopathy. 4. Cervical spondylosis. 5. Multiple myofascial pain. 6. Insomnia. 7. Osteoarthritis of multiple joint sites. 8. Long-term opioid use. 9. Long-term use of Lyrica. 10. Intermittent opioid-induced constipation. PLAN: 1. The patient has been fairly [...] mix with alcohol, or self-escalate it. 2. We are going to increase the patient's duloxetine to 60 mg daily. I have advised her any possible adverse effects from the medication to report and if they occur to decrease to the previous dose. She has voiced understanding. 3. Continue Amarillo 7.5/325 mg 3 times daily as needed. 4. I have educated the patient to use non-pharmacologic measures to alleviate pain prior to using as needed opioid medication such as heat, ice, rest, relaxation, repositioning, exercise, stretches, TENS unit and/or massage. 5. Continue Lyrica 100 mg 3 times daily. 6. Continue diclofenac 75 mg twice daily. 7. We are going to add compound cream 4 times daily as needed. 8. We are going to send the patient for random urine drug screening today. 9. We are going to continue Robaxin 750 mg twice daily as needed. 10. Continue Movantik 25 mg daily as needed. 11. We are going to see the patient back in one month to re-evaluate. 12. The assessment and plan for today's visit has been reviewed by Dr. Krishna, however, I have prescribed the medications for this patient's treatment plan today. The patient has been screened for symptoms or risk factors related to COVID-19 both prior to arrival for the visit and upon arrival at the clinic for the visit today. No risk factors or symptoms are identified at today's visit and the patient has been afebrile. /[id number] DICTATED BY: Jazz Orta APRN for Pepe Krishna MD, BLAKE Pain Certified Pepe Krishna MD, BLAKE Pain Certified PITA/AQ / PITA / MODL CC: REYES (REF) MD AUDIE documented in this encounter Plan of Treatment Not on file documented as of this encounter Visit Diagnoses Not on filedocumented in this encounter
--- OUTSIDE RECORDS SUMMARY | 2025-06-11 10:11 | XMS_ITS | Encounter Summary ---
Author Organization [employer] ([place], [place], [place], [place]) Address [address] [place] [address] Care Team Providers Care Online Trader Name Role Phone Unavailable Primary Care Provider Unavailabl e Encounter Details Date Type Department Care Team (Late st Contact Info) Description 10/17/2020 Transcribed Document [facility] Family Medicine [facility] [place] [place] [address] ProviderDarrell MD [address] [place] [phone] Social History Tobacco Use Types Packs/Day Years Used Date Smoking Tobacco: Never Assessed Comments Unknown Sex and Gender Information Value Date Recorded Sex Assigned at Not on file Legal Sex Female 6:16 PM CDT Gender Identity Not on file Sexual Orientation Not on file documented as of this encounter Miscellaneous Notes * Cerner Conversion Note - Historical ProviderMD - 10/17/2020 4:38 PM LAB ENGINEER ED Assessment Entered On: 10/17/2020 22:43 EST Performed On: 10/17/2020 22:40 EST by Jeannette Fuller RN ED Quick Look Assessment Level of Consciousness : Alert, Awake Affect/Behavior : Cooperative, Anxious, Crying, Impulsive, Inappropriate, Irritable, Restless Orientation : Oriented x 4 Skin Temperature : Warm Skin Description : Normal for ethnicity Jeannette Fuller RN - 10/17/2020 22:40 EST ED General-Functional Assess Information Obtained From : Patient Preferred Communication Mode : Verbal Communication Barrier : None Primary Language : Macanese Any Spiritual/Cultural Needs or Requests : No Currently in Unsafe Situation : No Jeannette Fuller RN - 10/17/2020 22:40 EST ED Psychosocial Assessment Affect/Behavior : Cooperative, Anxious, Fearful, Impulsive, Inappropriate, Irritable, Restless Describe Ineffective Coping : Other: pt in needed of re-assurance and re-direction Patient Coping : Limited coping Hallucinations Present : None Delusions Present : None Do You Have a Support System? : Yes Jeannette Fuller RN - 10/17/2020 22:40 EST Social Habits Smoking Status : Never (less than 100 in lifetime; none in last 30 days) Smokeless Tobacco Status : Never Desires Tobacco Cessation Calc : 0 Jeannette Fuller RN - 10/17/2020 22:40 EST Social History (As Of: 10/17/2020 22:43:12 EST) Tobacco: Smoking Status Never smoker. (Last Updated: 11/06/2016 11:34:08 EST by Tracey Mathews, ALFRED) Alcohol: Alcohol Use History Yes. Alcohol Use Frequency Rarely. (Last Updated: 11/06/2016 11:34:14 EST by Tracey Mathews, ALFRED) Substance Abuse: Drug Use Hx: No. Use in Last 12 Months: No. (Last Updated: 11/06/2016 11:34:18 EST by rTacey Mathews, ALFRED) Home/Environment: Lives with Children, Spouse. Living situation: Home/Independent. Home equipment: CPAP/BiPAP. (Last Updated: 06/18/2018 15:12:37 EDT by JOSÉ MIGUEL BRADSHAW, ALFRED) Employment/School: Unemployed (Last Updated: 06/18/2018 15:12:44 EDT by JOSÉ MIGUEL BRADSHAW, ALFRED) Cardiovascular ASMT, ED Cardiovascular Assessment WDL : WDL with exceptions Cardiovascular Symptoms : Chest discomfort at rest, Chest pain with activity, Dyspnea with activity, Fatigue with activity Heart Rhythm : Regular Nail Bed Color : Ulm Chest Pain : Yes Neck Vein Distention : Unable to visualize Jeannette Fuller RN - 10/17/2020 22:40 EST Respiratory Respiratory Assessment WDL : WDL with exceptions Cough : Congested, Productive, Strong Jeannette Fuller RN - 10/17/2020 22:40 EST Breath Sounds Assessment Grid LLL : Diminished RLL : Diminished Jeannette Fuller RN - 10/17/2020 22:40 EST Respiratory Pattern Description : Tachypnea Sputum Amount : Scant Sputum Consistency : Thick Sputum Color : Green Sputum Cleared by : Coughing Jeannette Fuller RN - 10/17/2020 22:40 EST Gastrointestinal ED Gastrointestinal Assessment WDL : WDL Fuller, Jeannette A, RN - 10/17/2020 22:40 EST documented in this encounter Plan of Treatment Not on file documented as of this encounter Visit Diagnoses Not on filedocumented in this encounter
--- OUTSIDE RECORDS SUMMARY | 2025-06-11 10:11 | XMS_ITS | Encounter Summary ---
Author Organization [employer] ([place], [place], [place], [place]) Address [address] [place] [address] Care Team Providers Care Product Safety Technician Name Role Phone Unavailable Primary Care Provider Unavailabl e Encounter Details Date Type Department Care Team (Late st Contact Info) Description 01/04/2021 Transcribed Document [facility] [place] [facility] [address] ProviderDarrell MD [address] [place] [address] [phone] Social History Tobacco Use Types Packs/Day Years Used Date Smoking Tobacco: Never Assessed Comments Unknown Sex and Gender Information Value Date Recorded Sex Assigned at Not on file Legal Sex Female 6:16 PM CDT Gender Identity Not on file Sexual Orientation Not on file documented as of this encounter Miscellaneous Notes * Cerner Conversion Note - Historical ProviderMD - 01/04/2021 2:42 PM SCHOOL LIBRARIAN DATE OF SERVICE: 12/21/2020 Height 64 inches Weight 218 pounds Body mass index 37.30. Complete pulmonary function test. SPIROMETRY: Bronchodilator testing was performed and post bronchodilator values as followin. FVC 2.74 L, 78% of predicted. 2. FEV1 of 1.88 L, 68% of predicted. 3. FEV1/FVC 69. There is a 30% improvement in FEV1 and 14% improvement in FVC following bronchodilator testing. LUNG VOLUMES: 1. TLC 4.38 L, 88% of predicted. 2. RV 1.78 L, 99% of predicted. DIFFUSION CAPACITY: 1. DLCO 95% of predicted. 2. DLCO/VA 112% of predicted. FLOW VOLUME LOOP: There is a scooping/convexity of the expiratory limb suggests obstruction. INTERPRETATION: 1. Moderate obstructive pulmonary disease. There is a 30% improvement in FEV1 with bronchodilator testing. Suspecting asthma than COPD 2. Lung volumes were normal. 3. Diffusion capacity was normal. 4. Clinical correlation is suggested. /[id number] Della Ortiz MD HE/AQ / XIAO / MODL /[id number] documented in this encounter Plan of Treatment Not on file documented as of this encounter Visit Diagnoses Not on filedocumented in this encounter
--- OUTSIDE RECORDS SUMMARY | 2025-06-11 10:11 | XMS_ITS | Encounter Summary ---
Author Organization [employer] ([place], [place], [place], [place]) Address [address] [place] [address] Care Team Providers Care Auto Parts Handler Name Role Phone Unavailable Primary Care Provider Unavailabl e Encounter Details Date Type Department Care Team (Late st Contact Info) Description 01/06/[address] [facility] [place] [facility] [place] [address] ProviderDrarell MD [address] [place] [phone] Social History Tobacco Use Types Packs/Day Years Used Date Smoking Tobacco: Never Assessed Comments Unknown Sex and Gender Information Value Date Recorded Sex Assigned at Not on file Legal Sex Female 6:16 PM CDT Gender Identity Not on file Sexual Orientation Not on file documented as of this encounter Miscellaneous Notes * Cerner Conversion Note - Darrell Flores MD - 01/06/2021 1:10 PM INDUSTRIAL FURNACE FABRICATOR Patient: FERMIN BARR Age: 55 Years Sex: Female : 1965 *Operation Colonoscopy, Esophagogastroduodenoscopy, Gastric Biopsy, Esophageal Biopsy, Esophageal Dilatation, Anesthesia Type CEE MORRISON MD-ANS (Anesthesiologist of Record) CEE MORRISON MD-ANS (Anesthesiologist of Record) CEE MORRISON MD-ANS (Anesthesiologist of Record) CEE MORRISON MD-ANS (Anesthesiologist of Record) CEE MORRISON MD-ANS (Anesthesiologist of Record) Indication for Surgery Dysphagia Dyspepsia Colon cancer screening First one *Preoperative Diagnosis dysphagia/screening *Postoperative Diagnosis GERD with stricture. Chronic gastritis Normal colon except hemorrhoids. *Surgeon(s) Primary Surgeon SEA OLSON MD (Surgeon/Proceduralist, First) *Estimated Blood Loss Minimal. The colon prep was good. *Findings Benign ring at the GE Junction without esophagitis. Random esophageal biopsies taken. It was dilated to 18mm with a TTS balloon. Chronic moderate gastritis, antral biopsies taken. Normal duodenum Normal colon to cecum except hemorrhoids. *Specimen(s) Antrum Esophagus Complications None Follow up colonoscopy in 10 years. Date of Service Date/Time of Service SN - Proc - Start Time: 01/06/21 12:57:00 (01/06/21 13:05:13) Electronically signed by [facility] Conversion Peer Educator Cerner at 02/18/2023 4:46 PM CDT documented in this encounter Plan of Treatment Not on file documented as of this encounter Visit Diagnoses Not on filedocumented in this encounter
--- OUTSIDE RECORDS SUMMARY | 2025-06-11 10:11 | XMS_ITS | Encounter Summary ---
Author Organization [employer] ([place], [place], [place], [place]) Address [address] [place] [address] Care Team Providers Care Palliative Care Nurse Name Role Phone Unavailable Primary Care Provider Unavailabl e Encounter Details Date Type Department Care Team (Late st Contact Info) Description 10/17/2020 Transcribed Document [facility] [place] [facility] [place] [address] ProviderDarrell MD [address] [place] [phone] Social History Tobacco Use Types Packs/Day Years Used Date Smoking Tobacco: Never Assessed Comments Unknown Sex and Gender Information Value Date Recorded Sex Assigned at Not on file Legal Sex Female 6:16 PM CDT Gender Identity Not on file Sexual Orientation Not on file documented as of this encounter Miscellaneous Notes * Cerner Conversion Note - Historical ProviderMD - 10/17/2020 10:52 PM INSOLE BOTTOM FILLER Patient: FERMIN BARR Age: 55 years Sex: Female : 1965 Associated Diagnoses: Elevated WBCs; PNA (pneumonia) Author: HAYLEE YOUNGBLOOD PA-C Basic Information Additional information: Chief Complaint from Nursing Triage Note : Chief Complaint 10/17/2020 17:31 EST Chief Complaint Hospitalized at [facility] last week c sepsis/PNA. Saw Maximiliano Alicia @ Dr. Cheek's office 10/13, had elevated WBCs. Temp today 98.6 - states baseline is 97.1 and she was advised to come to ED. . History of Present Illness The patient presents with 55-year-old female with a history of chronic neck pain asthma COPD she presents to the emergency department with complaints of elevated temperature and having elevated white blood cell count. Patient says that after being discharged from [facility] last week due to sepsis and possible pneumonia she saw Maximiliano Alicia at pulmonology office at that time she had an elevated white blood cell count of 22 Maximiliano advised her to continue her doxycycline and prednisone and have her labs repeated today patient says that she could not get in with her PCP so she called Maximiliano Alicia to see if she could come to [place] to have her blood work done in Maximiliano Alicia advised her to come to the emergency department. Patient reports that she does have some residual shortness of breath after being discharged and a cough that is not productive. She denies headache dizziness blurred vision chest pain abdominal pain nausea vomiting diarrhea dysuria hematuria numbness tingling decreased range of motion lower extremity murmur rash.. Review of Systems Additional review of systems information: All other systems reviewed and otherwise negative. Health Status Allergies: Allergic Reactions (Selected) Severity Not Documented Penicillin- Unknown. Tylenol with Codeine- Nausea, vomiting and chest pain.. Medications: (Selected) Inpatient Medications Ordered Normal Saline Flush: 10 mL, IV Push, 1-Time, PRN: IV Use Prescriptions Prescribed albuterol 5 mg/mL (0.5%) inhalation solution: 0.5 mL, Nebulized Inhalation, Q6H, for 30 Day(s), 60 mL, 2 Refill(s) loratadine 10 mg oral tablet: 1 Tab, Oral, Daily, for 30 Day(s), 30 Tab, 2 Refill(s) Documented Medications Documented [place] 7.5 mg-325 mg oral tablet: 1 Tab, Oral, BID, PRN: for pain, 0 Refill(s) ProAir HFA 90 mcg/inh inhalation aerosol: 2 Puff, Inhalation, QID, PRN: as needed for wheezing, 0 Refill(s) Remeron: 15 mg, Oral, At Bedtime, 0 Refill(s) Robaxin: 750 mg, Oral, TID, 0 Refill(s) Vitamin D3: Oral, Daily, 0 Refill(s) citalopram: 40 mg, Oral, Daily, 0 Refill(s) gabapentin: 100 mg, Oral, BID, 0 Refill(s) gabapentin: 200 mg, Oral, At Bedtime, 0 Refill(s). Immunizations: Per nurse's notes. Past Medical/ Family/ Social History Medical history Reviewed as documented in chart. Surgical history: heart cath in 2013 at 48 Years. hysterectomy with BSO for Endometreosis. cholecystectomy with sol. appendectomy. septoplasty. bilateral breast reduction. ACDF., Reviewed as documented in chart. Family history: No family history items have been selected or recorded., Reviewed as documented in chart. Social history: Social & Psychosocial Habits Alcohol 11/06/2016 Alcohol Use History, Social Habits Yes Alcohol Use Frequency Rarely Employment/School 06/18/2018 Status: Unemployed Home/Environment 06/18/2018 Lives with: Children, Spouse Living situation: Home/Independent Home equipment: CPAP/BiPAP Substance Abuse 11/06/2016 Recreational Drug Use History No Recreational Drug Use Last 12 Months No Tobacco 11/06/2016 Smoking Status Never smoker . Problem list: Active Problems (20) Anxiety Arthritis Asthma Asthma At risk for violence Cardiomyopathy DDD (degenerative disc disease), cervical Endometriosis Fibroids GERD - Gastro-esophageal reflux disease H/O: depression History of obstructive sleep apnea Left carpal tunnel syndrome Migraine Neck pain PCO - Polycystic ovaries Pneumonia Sleep apnea Spinal stenosis of cervical region Wears glasses , per nurse's notes. Physical Examination Vital Signs Vital Signs/Vital Measures 10/17/2020 20:29 EST Blood Pressure Location Arm, right upper Blood Pressure Source Non-Invasive BP Device Systolic Blood Pressure 128 mmHg Diastolic Blood Pressure 89 mmHg Temperature Mode Fahrenheit Peripheral Pulse Rate 84 bpm Respiratory Rate 22 Breaths/Min HI Oxygen Saturation 99 % Oxygen Therapy Mode Room air 10/17/2020 17:31 EST Systolic Blood Pressure 121 mmHg Diastolic Blood Pressure 64 mmHg Temperature Source Temporal artery scanning Temperature Mode Fahrenheit Temperature, Fahrenheit 97.4 Deg F Clinical Temperature, C 36.3 Deg C Peripheral Pulse Rate 100 bpm Respiratory Rate 16 Breaths/Min Oxygen Saturation 97 % Oxygen Therapy Mode Room air . Measurements 10/17/2020 17:31 EST Height Source Stated Height Entry Format Vanleer Height/Length, JAPANESE (ft) 5 ft Height/Length JAPANESE 4 Inch CLINICALHEIGHT 162.56 cm Nicolaus Body Weight 54.3 kg Weight Source, ED Critical estimated dosing weight Weight Entry Format Vanleer Weight German lb 250 lb CLINICALWEIGHT 113.64 kg Body Surface Area (BSA) 2.15 m2 Body Mass Index 43 kg/m2 >HHI . Oxygen Saturation 10/17/2020 20:29 EST Oxygen Saturation 99 % 10/17/2020 17:31 EST Oxygen Saturation 97 % . General: Alert, no acute distress. Skin: Warm, dry, pink, intact. Head: Normocephalic, atraumatic. Neck: Supple, trachea midline. Eye: Normal conjunctiva. Ears, nose, mouth and throat: Oral mucosa moist. Cardiovascular: Regular rate and rhythm, Normal peripheral perfusion. Respiratory: Lungs are clear to auscultation, respirations are non-labored. Gastrointestinal: Soft, Nontender, Non distended. Back: Nontender, Normal range of motion. Musculoskeletal: Normal ROM, normal strength. Neurological: Alert and oriented to person, place, time, and situation, No focal neurological deficit observed, normal speech observed, normal coordination observed. Psychiatric: Cooperative, appropriate mood & affect. Medical Decision Making Differential Diagnosis: Weakness, pneumonia, viral syndrome, anxiety. Rationale: Patient's vital signs have been stable while she has been in the emergency department, she is not in any acute distress she is resting comfortably, her lab work is unremarkable with the exception of an elevated white blood cell count of approximately 19, this is decreased from her previous white blood cell count 4 days ago also must be taken in consideration that she has been on steroids and is currently taking a taper dose of steroids. Patient's chest x-ray does not show any obvious infiltrate suggestive of pneumonia patient is advised to continue her medications as previously prescribed and follow-up outpatient with pulmonology.. Documents reviewed: Emergency department nurses' notes. Orders Include Previous Orders (Selected) Inpatient Orders Ordered Cardiac Monitoring: Consult to Dietitian: ED Fall Risk Documented: ED Isolation: Isolation: Normal Saline Flush: 10 mL, IV Push, 1-Time, PRN: IV Use Oxygen Therapy: Peripheral IV Insertion: Pulse Oximetry Continuous Monitoring: Violence Risk: Ordered (Dispatched) Extra Blue Tube: Ordered (Exam Completed) CR Chest 2 Vws: Ordered (In-Lab) Culture Blood: Culture Blood: Completed .Automated Differential: Aerosol Treatment (RT): BMP Basic Metabolic Panel: Casey Violence Assessment: CBC w/ Auto Diff: ED Adult Fall Risk Assessment: ED Adult Triage: ED C-SSRS: ED Clinical Reconciliation: ED wheel aligner: EKG: Lactic Acid Level with Reflex if Indicated: Troponin I Ultra: albuterol 2.5 mg/3 mL (0.083%) inhalation solution: 3 mL, Nebulized Inhalation, 1-Time. Electrocardiogram: Normal sinus rhythm reviewed by EDMD. Results review: Lab results : Lab Results 10/17/2020 17:48 EST Sodium Level 134 mmol/L LOW Potassium Level 4.5 mmol/L Chloride Level 103 mmol/L Carbon Dioxide Level 24 mmol/L Anion Gap 12 Glucose Level 149 mg/dL HI Blood Urea Nitrogen 18 mg/dL Creatinine Level 0.90 mg/dL eGFR >60 mL/min/1.73m2 eGFR NonAfrican >60 mL/min/1.73m2 Bun/Creatinine 20.0 Calcium Level 9.2 mg/dL Troponin I Ultra <0.015 ng/mL WBC 19.4 K/uL HI RBC 4.53 Million/uL Hgb 12.9 g/dL Hct 39.9 % MCV 88.1 fL MCH 28.5 pg MCHC 32.3 Gram/dL Platelet Count 332 K/uL MPV 9.5 fL RDW 13.4 % Neut % 80.7 % HI Neut # 15.72 K/uL HI Lymph % 11.7 % LOW Lymph # 2.28 x10(3)/uL Pratt % 4.3 % Pratt # 0.83 K/uL Eos % 0.1 % Eos # 0.01 x10(3)/uL Baso % 0.4 % Baso # 0.07 x10(3)/uL Slide Review No IG# 0.54 x10(3)/uL HI IG% 2.80 % HI 10/17/2020 17:35 EST Lactic Acid Level 1.7 mmol/L . Radiology results: No acute cardiopulmonary disease reviewed by EDMD. Impression and Plan Diagnosis Elevated WBCs - Discharge, Medical PNA (pneumonia) - Discharge, Medical Plan Condition: Stable. Disposition: Discharged Admit/Transfer/Discharge: Discharge (Order): Start: 10/17/2020 22:58 EST, Discharge to: Home. Patient was given the following educational materials: Community-Acquired Pneumonia, Adult. Follow up with: REYES BRONSON Within 2 to 3 days; MAXIMILIANO ALICIA Within 2 to 3 days Continue medications as prescribed follow-up with PCP and pulmonology return to the emergency department with new or worsening symptoms.. Counseled: Patient, Regarding diagnosis, Regarding diagnostic results, Regarding treatment plan, Patient indicated understanding of instructions. documented in this encounter Plan of Treatment Not on file documented as of this encounter Visit Diagnoses Not on filedocumented in this encounter
--- OUTSIDE RECORDS SUMMARY | 2025-06-11 10:11 | XMS_ITS | Encounter Summary ---
Author Organization [employer] ([place], [place], [place], [place]) Address [address] [place] [address] Care Team Providers Care Set Up Worker Name Role Phone Unavailable Primary Care Provider Unavailabl e Encounter Details Date Type Department Care Team (Late st Contact Info) Description 10/17/2020 Transcribed Document [facility] [place] [facility] [place] [address] ProviderDarrell MD [address] [place], [place] [id number] Social History Tobacco Use Types Packs/Day Years Used Date Smoking Tobacco: Never Assessed Comments Unknown Sex and Gender Information Value Date Recorded Sex Assigned at Not on file Legal Sex Female 6:16 PM CDT Gender Identity Not on file Sexual Orientation Not on file documented as of this encounter Miscellaneous Notes * Cerner Conversion Note - Historical ProviderMD - 10/17/2020 11:15 PM BOBBIN COIL WINDER ED Discharge Vital Signs Entered On: 10/17/2020 23:15 EST Performed On: 10/17/2020 23:15 EST by Jeannette Fuller RN ED Discharge Vital Signs Peripheral Pulse Rate : 82 bpm Respiratory Rate : 20 Breaths/Min Systolic Blood Pressure : 121 mmHg Diastolic Blood Pressure : 67 mmHg Oxygen Saturation : 98 % Jeannette Fuller RN - 10/17/2020 23:15 EST Electronically signed by Humera [facility] Conversion Laborer [employer] at 02/18/2023 4:50 PM CDT documented in this encounter Plan of Treatment Not on file documented as of this encounter Visit Diagnoses Not on filedocumented in this encounter
--- OUTSIDE RECORDS SUMMARY | 2025-06-11 10:11 | XMS_ITS | Encounter Summary ---
Author Organization [employer] ([place], [place], [place], [place]) Address [address] [place] [address] Care Team Providers Care Tinner Automatic Name Role Phone Unavailable Primary Care Provider Unavailabl e Encounter Details Date Type Department Care Team (Late st Contact Info) Description 01/05/2019 Transcribed Document [facility] [place] [facility] [place] [address] ProviderDarrell MD [address] [place] [id number] Social History Tobacco Use Types Packs/Day Years Used Date Smoking Tobacco: Never Assessed Comments Unknown Sex and Gender Information Value Date Recorded Sex Assigned at Not on file Legal Sex Female 6:16 PM CDT Gender Identity Not on file Sexual Orientation Not on file documented as of this encounter Miscellaneous Notes * Cerner Conversion Note - Historical ProviderMD - 01/05/2019 1:45 PM SUPERVISOR [employer]SE DATE OF ADMISSION: 01/05/2019 HISTORY OF PRESENT ILLNESS: This is a 53-year-old female with a chief complaint of chronic neck pain for several years' duration. The patient presents today for a followup along with medication management. The patient is complaining today of neck and bilateral shoulder pain. She describes it as burning, grinding, and a pressure. She states that she is using cold and home exercise. She states that does seem to help her some. She states that she has been feeling depressed lately. She states that this colder weather and things have got her depressed. She states that she is more of an outgoing outside person, but due to the weather it causes her to be really achy, so she has had to stand aside. The patient states that she did have a growth removed from her right eyelid about a week ago. She states that is well healed now. The patient does continue to take P[place]acola 7.5/325 mg 2-3 times a day as needed for pain. She states that does provide her with good relief when she takes it. The patient also continues to take Robaxin 750 mg 3 times a day as needed for muscle spasms. She states that she continues to take that and it is helping her. The patient also continues to take Lyrica 100 mg 3 times a day. She states that is also providing her with relief. The patient states that she was previously given Movantik samples. She states that she takes those just every now and then. She states that she has underlying constipation issues. She states that sometimes the pain medicine makes it worse. She is requesting today to get more samples of the Movantik. The patient denies any side effects with her medications to include toxic effect, excess sedation, driving problems, GI problems outside of opioid induced constipation. The patient's BLAKE was reviewed and found to be appropriate at today's office visit. The patient has been compliant with her urine drug screening. REVIEW OF SYSTEMS: Constitutional, Respiratory, Cardiovascular, Ophthalmology, Gastrointestinal, Genitourinary, ENT, Musculoskeletal, Integumentary, Neurology, Psychiatry, Endocrine, Hematology were not changed from 11/24/2018. PHYSICAL EXAMINATION: VITAL SIGNS: Blood pressure 115/63 weight 215 pounds, height 5 feet 4 inches, heart rate 94, respiratory rate 16, O2 saturation 95% on room air, temperature 97.3. Hours of sleep 8. Pain 4/10 to 5/10. No change in physical and neurological exam. Muscle tone power sensory and deep tendon reflexes were unchanged. The nurse notes, vital signs, and medication were reviewed and evaluated. No sign of impairment or toxicity to medicine. The patient psych evaluation, urine drug screen, and BLAKE were appropriate for taking opioid medication. ASSESSMENT: 1. Chronic neck pain secondary to degenerative joint disease and degenerative disk disease of the cervical spine. 2. Failed neck surgery. The patient is status post cervical fusion from C5 through C7. 3. Cervical radiculopathy. 4. Cervical spondylosis. 5. Long-term opioid use. PLAN: 1. Refill Pensacola 7.5/325 mg 2-3 times a day as needed for pain. 2. Refill Lyrica 100 mg 3 times a day. 3. The patient is going to follow up in one month for re-evaluation and medication management. 4. Refill Robaxin 750 mg 3 times a day as needed for muscle spasms. 5. I have encouraged the patient to do home exercises to include stretching and range of motion exercises for her neck. 6. The patient has been fairly well controlled on current medication. The patient has a good compliance with pain clinic regulation in regard urine drug screen BLAKE Psych evaluation. We spent more than half of the time discussing the risks, benefits of the medication, how to keep it in safe place, not to share with other people, not to mix with alcohol, or self-escalate it. 7. The patient was given samples of Movantik 25 mg daily. I also did give her a prescription for this. She states that she takes it sporadically, so she does not think she will have to fill the prescription as she states that the 9 pills that gave her as the samples will do her for a few months. 8. The assessment and plan for today's visit was reviewed by Dr. Krishna. However, all medications were prescribed by me. Dictated By: Lula Denny APRN For Pepe Krishna M.D., BLAKE Pain Certified Pepe Krishna M.D., BLAKE Pain Certified Dict: 01/05/2019 13:45:09 Trans: 01/05/2019 16:00:30 CC1: Pepe Krishna M.D., BLAKE Pain Certified CC2: Dr. Janes Mason documented in this encounter Plan of Treatment Not on file documented as of this encounter Visit Diagnoses Not on filedocumented in this encounter
--- OUTSIDE RECORDS SUMMARY | 2025-06-11 10:11 | XMS_ITS | Encounter Summary ---
Author Organization [employer] ([place], [place], [place], [place]) Address [address] [place] [address] Care Team Providers Care Fabricator Industrial Furnace Name Role Phone Unavailable Primary Care Provider Unavailabl e Encounter Details Date Type Department Care Team (Late st Contact Info) Description 10/17/2020 Transcribed Document [facility] [place] [address] ProviderDarrell MD [address] [place] [id number] Social History Tobacco Use Types Packs/Day Years Used Date Smoking Tobacco: Never Assessed Comments Unknown Sex and Gender Information Value Date Recorded Sex Assigned at Not on file Legal Sex Female 6:16 PM CDT Gender Identity Not on file Sexual Orientation Not on file documented as of this encounter Miscellaneous Notes * Cerner Conversion Note - Historical ProviderMD - 10/17/2020 10:58 PM ENTERPRISE ENGINEER Electronically signed by Humera [facility] Conversion Buffer Automatic Cerner at 02/18/2023 4:55 PM CDT documented in this encounter Plan of Treatment Not on file documented as of this encounter Visit Diagnoses Not on filedocumented in this encounter
--- OUTSIDE RECORDS SUMMARY | 2025-06-11 10:11 | XMS_ITS | Encounter Summary ---
Author Organization [employer] ([place], [place], [place], [place]) Address [address] [place] [address] Care Team Providers Care Billing Auditor Name Role Phone Unavailable Primary Care Provider Unavailabl e Encounter Details Date Type Department Care Team (Late st Contact Info) Description 06/08/2019 Transcribed Document [facility] [place] [facility] [place] [address] ProviderDarrell MD [address] [place] [phone] Social History Tobacco Use Types Packs/Day Years Used Date Smoking Tobacco: Never Assessed Comments Unknown Sex and Gender Information Value Date Recorded Sex Assigned at Not on file Legal Sex Female 6:16 PM CDT Gender Identity Not on file Sexual Orientation Not on file documented as of this encounter Miscellaneous Notes * Cerner Conversion Note - Historical ProviderMD - 06/08/2019 3:27 PM CDT DATE OF ADMISSION: 06/08/2019 HISTORY OF PRESENT ILLNESS: This is a 54-year-old female with a chief complaint of chronic neck pain that radiates to the left shoulder for several years' duration, who is here today for followup visit. The patient reports today that she is having pain in the left hand and her left neck. The patient says she also has some left shoulder pain on the top of her shoulder. The patient reports that she has an aching sensation. The patient says that she uses cold in addition to her medication to help her with her pain. The patient says that she also does some intentional exercises and range of motion to help her in that regard. The patient continues to take Lyrica 100 mg 3 times daily and Emmett 7.5/325 mg 3 times daily as needed. The patient says she takes the medication exactly as directed and that the use of the medication makes her more functional and able to do the things that she needs to do inside and outside the home. The patient says that she is undergoing some undue stress due to some issues in her family regarding her mother's estate and property. The patient says that she is doing well with the increase in the Emmett and it is giving her so much better help and relief. The patient does appear to be well-dressed today and is also wearing makeup. She says that she feels so much better and that she felt like doing that today. The patient denies any adverse effects from her medication including toxic effects, sedation, driving problems, or GI problems. REVIEW OF SYSTEMS: Constitutional, Respiratory, Cardiovascular, Ophthalmology, Gastrointestinal, Genitourinary, ENT, Musculoskeletal, Integumentary, Neurology, Psychiatry, Endocrine, Hematology were unchanged from her last visit on May 11, 2019. PHYSICAL EXAMINATION: VITAL SIGNS: Blood pressure 123/69. Weight 215, height 61 inches. Heart rate 97, respiratory rate 16, O2 sat 92%. Pain level 4. Hours of sleep 7 to 8. No change in physical and neurological [...] of the cervical spine. 2. Failed neck surgery, status post cervical fusion. 3. Cervical radiculopathy. 4. Cervical spondylosis. 5. Long-term opioid use. 6. Long-term use of high-risk medication. 7. Opioid-induced constipation. 8. Multiple myofascial pain. 9. Insomnia. PLAN: 1. The patient has been fairly [...] with alcohol, or self-escalate it. 2. Continue Emmett 7.5/325 mg 3 times daily. 3. Continue Lyrica 100 mg 3 times daily. 4. I have reviewed the patient's last urine drug screening with her from her last visit on May 11, 2019 and it is consistent with her current medications. We are going to continue to do those randomly. 5. Continue Movantik 25 mg daily. 6. Continue Robaxin 750 mg 3 times daily. 7. Continue trazodone 25-50 mg at bedtime. 8. I have encouraged the patient to continue home exercise program including walking and stretching as well as doing intentional range of motion exercises for her neck. 9. I have encouraged the patient to do nonpharmacological measures for pain alleviation prior to taking her Emmett, including heat, ice, relaxation, rest, and meditation. 10. We are going to see the patient back after one month to re-evaluate. 11. The assessment and plan for today's visit has been reviewed by Dr. Krishna. Medications have been prescribed by myself for this patient's treatment plan. Dictated By: Jazz Orta APRN For Pepe Krishna M.D., BLAKE Pain Certified Pepe Krishna M.D., BLAKE Pain Certified Dict: 06/08/2019 15:27:02 Trans: 06/08/2019 22:26:03 CC1: Pepe Krishna M.D., BLAKE Pain Certified CC2: Janes Mason MD documented in this encounter Plan of Treatment Not on file documented as of this encounter Visit Diagnoses Not on filedocumented in this encounter
--- OUTSIDE RECORDS SUMMARY | 2025-06-11 10:11 | XMS_ITS | Encounter Summary ---
Author Organization [facility] ([place], [place], [place], [place]) Address [address] [place] [address] Care Team Providers Care Agent Spa Desk Name Role Phone Unavailable Primary Care Provider Unavailabl e Encounter Details Date Type Department Care Team (Late st Contact Info) Description 01/06/2021 Transcribed Document [facility] [place] Family Medicine [facility] [place] [address] ProviderDarrell MD [address] [place] [address] [id number] Social History Tobacco Use Types Packs/Day Years Used Date Smoking Tobacco: Never Assessed Comments Unknown Sex and Gender Information Value Date Recorded Sex Assigned at Not on file Legal Sex Female 6:16 PM CDT Gender Identity Not on file Sexual Orientation Not on file documented as of this encounter Miscellaneous Notes * Cerner Conversion Note - Historical ProviderMD - 01/06/2021 12:45 PM DRESS OPERATOR [facility] IntraOp Summary Primary Physician: SEA OLSON MD Finalized Date/Time: 01/06/21 13:06:19 Pt. Name: FERMIN BARR/Sex: 1965 Female Med Rec #: [id number] Physician: SEA OLSON MD Financial #: [id number] Pt. Type: O Room/Bed: END/ Admit/Disch: 01/06/21 11:16:00 - Institution: [facility] - Case Attendance Entry 1 Entry 2 Entry 3 Case Attendee SEA OLSON MD GHANSAH, NANA DADZIE, Mcclintock, Molly, Rn MD-ANS Role Performed Surgeon/Proceduralist, Anesthesiologist of Double Bass Player, First First Record Time In 01/06/21 12:38:00 01/06/21 12:38:00 01/06/21 12:38:00 Time Out 01/06/21 13:08:00 01/06/21 13:08:00 01/06/21 13:08:00 Procedure Colonoscopy, Gastric Biopsy, Gastric Biopsy, Esophagogastroduodenosco Esophageal Biopsy, Esophageal Biopsy, py, Gastric Biopsy, Esophageal Dilatation Esophageal Dilatation Esophageal Biopsy, Esophageal Dilatation Other Attendee Superficial Wound Closed By: Last Modified By: Moira Jensen Rn Mcclintock, Molly, Moira Sanchez, Lou 01/06/21 13:05:47 01/06/21 13:05:47 01/06/21 13:05:47 Entry 4 Entry 5 Entry 6 Case Attendee TRAVIS TABOR RN BURGESS, MONICA ZEPEDA, LATISHA SHELLEY Role Performed Double Bass Player, Second Scrub, First DIRECTOR SALES SUPPORT/Nurse Canine Service Instructor Trainer Time In 01/06/21 12:38:00 01/06/21 12:38:00 01/06/21 12:38:00 Time Out 01/06/21 13:08:00 01/06/21 13:08:00 01/06/21 13:08:00 Procedure Gastric Biopsy, Gastric Biopsy, Gastric Biopsy, Esophageal Biopsy, Esophageal Biopsy, Esophageal Biopsy, Esophageal Dilatation Esophageal Dilatation Esophageal Dilatation Other Attendee Superficial Wound Closed By: Last Modified By: Moira Jensen Rn Mcclintock, Molly, Moira Sanchez Rn 01/06/21 13:05:47 01/06/21 13:05:47 01/06/21 13:05:47 [facility] - Case Attendance Audit 01/06/21 13:05:47 Food Beverage Manager: [id number] Modifier: [id number] 1 <+> Time Out 1 <*> Procedure Colonoscopy, Esophagogastroduodenoscopy, Gastric Biopsy, Esophageal Biopsy, Esophageal Dilatation 2 <+> Time Out 2 <*> Procedure Gastric Biopsy, Esophageal Biopsy, Esophageal Dilatation 3 <+> Time Out 3 <*> Procedure Gastric Biopsy, Esophageal Biopsy, Esophageal Dilatation 4 <+> Time Out 4 <*> Procedure Gastric Biopsy, Esophageal Biopsy, Esophageal Dilatation 5 <+> Time Out 5 <*> Procedure Gastric Biopsy, Esophageal Biopsy, Esophageal Dilatation 6 <+> Time Out 6 <*> Procedure Gastric Biopsy, Esophageal Biopsy, Esophageal Dilatation 01/06/21 12:48:41 Food Beverage Manager: [id number] Modifier: [id number] 1 <*> Procedure Colonoscopy, Esophagogastroduodenoscopy, Gastric Biopsy, Esophageal Biopsy 2 <*> Procedure Gastric Biopsy, Esophageal Biopsy 3 <*> Procedure Gastric Biopsy, Esophageal Biopsy 4 <*> Procedure Gastric Biopsy, Esophageal Biopsy 5 <*> Procedure Gastric Biopsy, Esophageal Biopsy 6 <*> Procedure Gastric Biopsy, Esophageal Biopsy 01/06/21 12:45:26 Food Beverage Manager: [id number] Modifier: [id number] 1 <*> Procedure Colonoscopy, Esophagogastroduodenoscopy, Gastric Biopsy 2 <*> Procedure Gastric Biopsy 3 <*> Procedure Gastric Biopsy 4 <*> Procedure Gastric Biopsy 5 <*> Procedure Gastric Biopsy 6 <*> Procedure Gastric Biopsy 01/06/21 12:44:50 Food Beverage Manager: [id number] Modifier: [id number] 1 <*> Procedure Colonoscopy, Esophagogastroduodenoscopy <+> 2 Procedure <+> 3 Procedure <+> 4 Procedure <+> 5 Procedure <+> 6 Procedure 01/06/21 12:41:08 Food Beverage Manager: [id number] Modifier: [id number] <*> Case Attendee LANA HERRMANN MD-ANS 01/06/21 12:40:29 Food Beverage Manager: [id number] Modifier: [id number] 1 <+> Time In 1 <*> Procedure Colonoscopy, Esophagogastroduodenoscopy <+> 2 Time In <+> 3 Time In <+> 4 Time In <+> 5 Time In <+> 6 Time In 01/06/21 12:31:04 Food Beverage Manager: [id number] Modifier: [id number] <+> 2 Case Attendee <+> 2 Role Performed <+> 3 Case Attendee <+> 3 Role Performed <+> 4 Case Attendee <+> 4 Role Performed <+> 5 Case Attendee <+> 5 Role Performed <+> 6 Case Attendee <+> 6 Role Performed [facility] - Case times Entry 1 Patient In Room Time 01/06/21 12:38:00 Out Room Time 01/06/21 13:08:00 Anesthesia Start Time 01/06/21 12:38:00 Stop Time 01/06/21 13:08:00 Surgery / Procedure Times Start Time 01/06/21 12:45:00 Stop Time 01/06/21 13:05:00 Last Modified By: Moira Jensen Rn 01/06/21 13:05:33 [facility] - Case times Audit 01/06/21 13:05:33 Food Beverage Manager: [id number] Modifier: [id number] <+> 1 Out Room Time <+> 1 Stop Time <+> 1 Stop Time 01/06/21 12:47:15 Food Beverage Manager: [id number] Modifier: [id number] <+> 1 Start Time [facility] - Cultures and Spec Summary Entry 1 Cultrures and Specimens Specimen Ordered: Yes Test(s) Routine/Path-Lab Requested/Final Disposition Last Modified By: Moira Jensen Rn 01/06/21 12:47:42 [facility] - Delays Entry 1 Delay Reason Other, No Delay Duration 0 Minute(s) Last Modified By: Moira Jensen Rn 01/06/21 12:31:14 [facility] - Departure from OR Entry 1 Integumentary Assessment Integumentary WDL Assessment WDL Transfer/Handoff Transfer to PACU Phase I Post-op Transport Stretcher/Gurney Via Patient Transport Moira Jensen Rn Accompanied by Last Modified By: Moira Jensen Rn 01/06/21 12:40:40 [facility] - Departure from OR Audit 01/06/21 12:40:40 Food Beverage Manager: [id number] Modifier: [id number] 1 <*> Patient Transport Accompanied by Moira Jensen, Rn 1 <-> Handoff Method Bedside/Face to face [facility] - Endoscopy Details Entry 1 Abdomen Procedure Soft, Non-Tender Assessment Procedure Abdomen 01/06/21 12:38:00 Assessment D/T Radio Frequency Ablation Abdominal Pressure Last Modified By: Moira Jensen Rn 01/06/21 12:38:50 [facility] - Fire Risk Assessment Entry 1 Fire Info Surgical Site or 1- Yes Incision Above the Xyphoid Open O2 Source 1- Yes (Mask or Cannula) Available Ignition 1- Yes (ESU, Laser, Light Source) Fire Risk 3 Assessment Score Fire Score Fire Risk Yes Assessment Complete Fire Risk Moira Jensen, Marketing And Outreach Coordinator Verified By Fire Risk 01/06/21 12:39:00 Assessment Verified Date/Time Fire Risk High Risk Protocol Yes Implemented Standard Fire Yes Safety Precautions Followed Last Modified By: Moira Jensen Rn 01/06/21 12:39:28 [facility] - Fire Risk Assessment Audit 01/06/21 12:39:28 Food Beverage Manager: [id number] Modifier: [id number] <+> 1 Fire Risk Assessment Complete <+> 1 Fire Risk Assessment Verified Date/Time [facility] - General Case Broadcast Chief Engineer 1 Case Information OR Endo 03 [facility] Case Level 1 Room Verified Yes Wound Class III - Contaminated Specialty SN Gastroenterology Anesthesia Type General ASA Class 3 Diagnosis Preop Diagnosis dysphagia/screening Postop Same As Preop Yes Postop Diagnosis dysphagia/screening Last Modified By: Moira Jensen Rn 01/06/21 12:39:17 [facility] - General Case Data Audit 01/06/21 12:39:17 Food Beverage Manager: [id number] Modifier: [id number] <+> 1 ASA Class <+> 1 Postop Same As Preop <+> 1 Preop Diagnosis <+> 1 Postop Diagnosis [facility] - Intraoperative Assessment Entry 1 Valid History / Yes Physical in Chart Preoperative Yes Checklist Reviewed/Evaluated Patient is Latex No Sensitive Level of WDL Consciousness (WDL = Alert, Oriented to Person, Place, and Time) Last Modified By: Moira Jensen Rn 01/06/21 12:31:39 [facility] - Intraoperative Equipment Entry 1 Equipment Intraop Monitoring Electrocardiogram Three lead placement (ECG) Electrode Placement Blood Pressure Arm, left upper Location Pulse Oximeter Hand, right Probe Site Antiembolic Devices Scopes Flexible Endoscopes Gastroscope Used Scope Serial N, K Number/Identificatio n Number Photo/Video Documentation Photo Yes Video No Last Modified By: Moira Jensen Rn 01/06/21 12:41:53 [facility] - Intraoperative Equipment Audit 01/06/21 12:41:53 Food Beverage Manager: [id number] Modifier: [id number] 1 <*> Photo Yes 1 <*> Video No 1 <*> Electrocardiogram (ECG) Electrode Three lead placement Placement 1 <*> Blood Pressure Location Arm, left upper 1 <*> Pulse Oximeter Probe Site Hand, right 1 <*> Flexible Endoscopes Used Gastroscope 1 <+> Scope Serial Number/Identification Number [facility] - Patient Positioning Entry 1 Procedure Esophagogastroduodenosco py, Gastric Biopsy, Esophageal Biopsy, Esophageal Dilatation Body Position Lateral, right side up Left Arm Position Resting at side Right Arm Position Resting at side Left Leg Position Other Right Leg Position Other Position Comments Right leg over left leg, uncrossed Feet Uncrossed Yes Pressure Points Yes Checked Positioned By Moira Jensen Rn Position Verified Positioning Yes Verified by Surgeon Last Modified By: Moira Jensen Rn 01/06/21 12:48:41 [facility] - Patient Positioning Audit 01/06/21 12:48:41 Food Beverage Manager: [id number] Modifier: [id number] 1 <*> Procedure Esophagogastroduodenoscopy, Gastric Biopsy, Esophageal Biopsy 01/06/21 12:45:27 Food Beverage Manager: [id number] Modifier: [id number] 1 <*> Procedure Esophagogastroduodenoscopy, Gastric Biopsy 01/06/21 12:44:50 Food Beverage Manager: [id number] Modifier: [id number] 1 <*> Procedure Esophagogastroduodenoscopy [facility] - Sign In Entry 1 Patient, Site, Yes Procedure Identified Surgical Consent Yes Confirmed Surgical Site N/A Marked by person performing procedure Airway Hypothermia Risk No Warming Measures No Taken Last Modified By: Moira Jensen Rn 01/06/21 12:31:56 [facility] - Sign Out Entry 1 RN Confirmation Surgical Yes Procedure(s) Identified Instrument, Sponge N/A and Sharps Counts Correct/Documented Equipment Problems N/A Documented Specimen Labeled Yes Correctly Urinary Catheter N/A Documented in IView Safety Checklist Yes Elements Complete? RN Sign Out Moira Jensen Rn Signature RN Sign Out 01/06/21 13:08:00 Signature Date/Time Plan of Care Outcome - Fire Risk OUTCOME STATEMENT: Goal met Patient is free from injury related to surgical fire Plan of Care Outcome - Pt Positioning OUTCOME STATEMENT: Goal met Absence of signs and symptoms of positioning injury. Plan of Care Outcome - Skin Prep OUTCOME STATEMENT: Goal met Intraoperative care is consistent with measures to prevent infection Plan of Care Outcome - Xray/Images OUTCOME STATEMENT: N/A Absence of observable signs or symptoms of radiation injury Plan of Care Outcome - Counts OUTCOME STATEMENT: N/A Absence of signs and symptoms of injury related to extraneous objects Last Modified By: Moira Jensen Rn 01/06/21 13:05:40 [facility] - Surgical Procedures Entry 1 Entry 2 Entry 3 Procedure Colonoscopy Esophagogastroduodenosco Gastric Biopsy py Modifiers Additional DIAGNOSTIC Antrum Biopsy Procedure Description Primary Procedure No Yes No Primary Surgeon SEA OLSON MD YONG, JUNE, MD YONG, JUNE, MD Start 01/06/21 12:57:00 01/06/21 12:45:00 01/06/21 12:45:00 Stop 01/06/21 13:05:00 01/06/21 12:51:00 01/06/21 13:05:00 Physician States 01/06/21 12:59:00 Cecum Reached Anesthesia Type MAC MAC MAC Specialty SN Gastroenterology SN Gastroenterology SN Gastroenterology Wound Class III - Contaminated II - Clean-Contaminated II - Clean-Contaminated Last Modified By: Moira Jensen, Moira Sanchez, Moira Sanchez Rn 01/06/21 13:05:13 01/06/21 13:05:13 01/06/21 13:05:42 Entry 4 Entry 5 Procedure Esophageal Biopsy Esophageal Dilatation Modifiers Additional Procedure Description Primary Procedure No No Primary Surgeon SEA OLSON MD YONG, JUNE, MD Start 01/06/21 12:45:00 01/06/21 12:45:00 Stop 01/06/21 13:05:00 01/06/21 13:05:00 Physician States Cecum Reached Anesthesia Type MAC MAC Specialty SN Gastroenterology SN Gastroenterology Wound Class II - Clean-Contaminated II - Clean-Contaminated Last Modified By: Moira Jensen Rn Mcclintock, Molly, Lou 01/06/21 13:05:42 01/06/21 13:05:42 [facility] - Surgical Procedures Audit 01/06/21 13:05:42 Food Beverage Manager: [id number] Modifier: [id number] <+> 3 Stop <+> 4 Stop <+> 5 Stop 01/06/21 13:05:13 Food Beverage Manager: [id number] Modifier: [id number] 1 <*> Procedure Colonoscopy 1 <*> Start 01/06/21 12:45:00 1 <+> Stop 1 <+> Physician States Cecum Reached 2 <*> Procedure Esophagogastroduodenoscopy 2 <+> Stop 01/06/21 12:48:40 Food Beverage Manager: [id number] Modifier: [id number] <+> 5 Procedure <+> 5 Primary Procedure <+> 5 Primary Surgeon <+> 5 Specialty <+> 5 Start <+> 5 Wound Class <+> 5 Anesthesia Type 01/06/21 12:47:35 Food Beverage Manager: [id number] Modifier: [id number] <+> 1 Start <+> 2 Start <+> 3 Start <+> 4 Start 01/06/21 12:45:25 Food Beverage Manager: [id number] Modifier: [id number] <+> 4 Procedure <+> 4 Primary Procedure <+> 4 Primary Surgeon <+> 4 Specialty <+> 4 Wound Class <+> 4 Anesthesia Type 01/06/21 12:44:49 Food Beverage Manager: [id number] Modifier: [id number] <+> 3 Procedure <+> 3 Primary Procedure <+> 3 Primary Surgeon <+> 3 Specialty <+> 3 Wound Class <+> 3 Anesthesia Type <+> 3 Additional Procedure Description [facility] - Time Out Entry 1 Procedure to be Colonoscopy, Performed Esophagogastroduodenosco py, Gastric Biopsy, Esophageal Biopsy, Esophageal Dilatation Time Out Time Out Pause Time 01/06/21 12:42:00 All activity Yes suspended (unless life threatening emergency) Team Verbally Correct patient Confirms Information identity, Consent form is present and accurate, Agreement on the procedure to be done, Correct patient position, Relevant images/results properly labeled/appropriately displayed, Reconcile problems if responses among team members differ Antibiotic N/A Prophylaxis Administered Or In Progress Within the Last 60 Minutes Beta Areli N/A Administered Venous N/A Thromboembolism Prophylaxis Required Anticipated Critical Events Surgeon None expected Last Modified By: Moira Jensen Rn 01/06/21 12:48:42 [facility] - Time Out Audit 01/06/21 12:48:42 Food Beverage Manager: [id number] Modifier: [id number] 1 <*> Procedure to be Performed Colonoscopy, Esophagogastroduodenoscopy, Gastric Biopsy, Esophageal Biopsy 01/06/21 12:45:27 Food Beverage Manager: [id number] Modifier: [id number] 1 <*> Procedure to be Performed Colonoscopy, Esophagogastroduodenoscopy, Gastric Biopsy 01/06/21 12:44:51 Food Beverage Manager: [id number] Modifier: [id number] 1 <*> Procedure to be Performed Colonoscopy, Esophagogastroduodenoscopy Case Comments <None> Finalized By: Moira Jensen Rn Document Signatures Signed By: Moira Jensen Rn 01/06/21 13:06 Electronically signed by [facility] Conversion Executive Producer [employer] Cerner at 02/18/2023 5:01 PM CDT documented in this encounter Plan of Treatment Not on file documented as of this encounter Visit Diagnoses Not on filedocumented in this encounter
--- OUTSIDE RECORDS SUMMARY | 2025-06-11 10:11 | XMS_ITS | Clinical Summary ---
Author Organization [facility] Address [address] [place] [address] Phone Care Team Providers Care Cable Assembler Name Role Phone Janes Mason Primary Care Provider [phone] Allergies Active Allergy Reactions Criticality Noted Date [...] - 2023-2 5 season) 2024 Influenza Vaccine (#1) 2025 Meningococcal B Vaccine Aged Out No l onger eligible based on patient's age to complete this topic Insurance PPO [facility] PPO Care Teams Cable Assembler Relationship Specialty Start Date End Date Janes Mason [address] [place] [id number] PCP - General Family Medicine 04/09/17
--- OUTSIDE RECORDS SUMMARY | 2025-06-11 10:11 | XMS_ITS | Encounter Summary ---
Author Organization [employer] ([place], [place], [place], [place]) Address [address] [place] [address] Care Team Providers Care Director Of Business Systems Name Role Phone Unavailable Primary Care Provider Unavailabl e Encounter Details Date Type Department Care Team (Late st Contact Info) Description 01/06/2021 Transcribed Document [facility] Family Medicine [facility] [place] [address] ProviderDarrell MD [facility] [place], [place] [id number] Social History Tobacco Use Types Packs/Day Years Used Date Smoking Tobacco: Never Assessed Comments Unknown Sex and Gender Information Value Date Recorded Sex Assigned at Not on file Legal Sex Female 6:16 PM CDT Gender Identity Not on file Sexual Orientation Not on file documented as of this encounter Miscellaneous Notes * Cerner Conversion Note - Historical ProviderMD - 01/06/2021 12:16 PM GENETICS PHYSICIAN Pre Procedure Adult Entered On: 01/06/2021 12:18 EST Performed On: 01/06/2021 12:16 EST by Ligia Walter RN Height and Weight, Clinical Dosing Height Source : Stated Height Entry Format : Rentz Height, Feet : 5 ft(Converted to: 152 cm, 60 Inch) Height, Inches : 4 Inch(Converted to: 0 ft 4 Inch, 10.16 cm) Clinical Height : 162.56 cm Weight Source : Standing scale Weight Entry Format : Rentz Clinical Dosing Weight : 99.15 kg Weight, Pounds : 218 lb Weight, Ounces : 2 oz Body Surface Area (BSA) : 2.03 m2 Body Mass Index : 37.5 kg/m2 (HI) [place] Body Weight : 54 kg Ligia Walter RN - 01/06/2021 12:16 EST Health Histories Smoking Status : Never (less than 100 in lifetime; none in last 30 days) Smokeless Tobacco Status : Never Ligia Walter RN - 01/06/2021 12:16 EST Social History (As Of: 01/06/2021 12:18:41 EST) Tobacco: Smoking Status Never smoker. (Last Updated: 11/06/2016 11:34:08 EST by Tracey Mathews RN) Alcohol: Alcohol Use History Yes. Alcohol Use Frequency Rarely. (Last Updated: 11/06/2016 11:34:14 EST by Tracey Mathews, ALFRED) Substance Abuse: Drug Use Hx: No. Use in Last 12 Months: No. (Last Updated: 11/06/2016 11:34:18 EST by Tracey Mathews RN) Home/Environment: Lives with Children, Spouse. Living situation: Home/Independent. Home equipment: CPAP/BiPAP. (Last Updated: 06/18/2018 15:12:37 EDT by JOSÉ MIGUEL BRADSHAW RN) Employment/School: Unemployed (Last Updated: 06/18/2018 15:12:44 EDT by JOSÉ MIGUEL BRADSHAW RN) Infectious Disease History Has the patient ever been tested for COVID-19? : Yes, Patient stated results Negative Date of COVID-19 test known? : Yes Date of COVID-19 Test : 01/03/2021 EST Does patient have symptoms of COVID-19? : No COVID19 Screening : No Experiencing Infectious Disease Symptoms : No symptoms Physical contact outside [place] in the last 30 days : No Infectious Disease History : Chicken pox/Shingles, Measles Tuberculosis Symptoms : None Ligia Walter RN - 01/06/2021 12:16 EST COVID19 PreProcedure Screening Is this an Emergent or Add on Procedure? : No Date PreProcedure COVID-19 test known? : Yes Date of PreProcedure COVID-19 : 01/03/2021 EST Has patient been isolated since the test : Yes Exposed to COVID19 symptoms since test? : No Ligia Walter RN - 01/06/2021 12:16 EST Anesthesia/Transfusion History Family History of Anesthesia Reaction : No prior transfusion(s) Transfusion History : Prior anesthesia reaction Type of Anesthesia Reaction : Excessive nausea/vomiting Family History of Anesthesia Reaction : None Intubation History : Unknown Ligia Walter RN - 01/06/2021 12:16 EST Functional Assessment Living Situation : Home Current Home Treatments : Nebulizer treatments Ligia Walter RN - 01/06/2021 12:16 EST [place] Suicide Severity Rating Scale (C-SSRS) CSSRS Past Month Wish to be : No CSSRS Past Month Suicidal Thoughts : No CSSRS Lifetime Suicide Behavior : No Suicide Severity Rating Score : 0 Suicide Severity Rating : No Additional Care Required at this time Ligia Walter RN - 01/06/2021 12:16 EST Psychosocial History Do You Have a History of the Following? : Anxiety Currently in Unsafe Situation : No Ligia Walter RN - 01/06/2021 12:16 EST Advance Directive Patient has Advance Directive *Q : No, patient refuses Advance Directive information Ligia Walter RN - 01/06/2021 12:16 EST General Info Preferred Name : wilfred Support Person/Patient Explosive Ordnance Specialist : Yes Support Person/Pt Rep Name : Chrissy Barr, Marina Perez, mother Support Person/Pt Rep Contact Information : [phone] Want Family/Rep/Phys Notified of Admit : No Emergency Contact #1 : chrissy Emergency Contact #1 Emergency Contact #1 Relationship : spouse Emergency Contact #2 : Emergency Contact #2 Phone Number : Emergency Contact #2 Relationship : Primary Language : Bangladeshi Preferred Communication Mode : Verbal Communication Barrier : None Manager Of Radiology Needed : No Ligia Walter RN - 01/06/2021 12:16 EST Sleep Apnea Risk Assmt BiPAP/CPAP Ordered for Home Use : No Hx of Obstructive Sleep Apnea Diagnosis : Yes Age over 50 Years Old : Yes Gender Male : No Ligia Walter RN - 01/06/2021 12:16 EST Jordan Scale Jordan Sensory Perception : No impairment Jordan Moisture : Rarely moist Jordan Activity : Walks frequently Jordan Mobility : No limitation Jordan Nutrition : Excellent Jordan Friction and Shear : No apparent problem Jordan Score : 23 Ligia Walter RN - 01/06/2021 12:16 EST Fall Risk Scales ABCs Fall Injury Risk Identification : None CARUSO Hx Falls Immediate/Within 3 Months : No Caruso Secondary Diagnosis : No CARUSO Use of Ambulatory Aid : None CARUSO IV Therapy or IV Access : Yes Caruso Gait/Transferring : Normal, bedrest, immobile Caruso Mental Status : Oriented to own ability Caruso Fall Risk Score : 20 CARUSO Fall Scale Risk Level : 0-24 Low Risk [place] Fall Interventions : Adequate lighting, Non-slip footwear, Wheels locked Ligia Walter RN - 01/06/2021 12:16 EST Valuables and Belongings Valuables and Belongings : Clothing, Personal items Clothing : Common streetwear Clothing Disposition : Bedside Personal Items : Cell phone, Purse Personal Items Disposition : Bedside Ligia Walter RN - 01/06/2021 12:16 EST Electronically signed by [facility] Conversion Artificial Plastic Eye Maker Cerner at 02/18/2023 4:52 PM CDT documented in this encounter Plan of Treatment Not on file documented as of this encounter Visit Diagnoses Not on filedocumented in this encounter
--- OUTSIDE RECORDS SUMMARY | 2025-06-11 10:11 | XMS_ITS | Encounter Summary ---
Author Organization [employer] ([place], [place], [place], [place]) Address [address] [place] [address] Care Team Providers Care Brick And Blocker Aid Labor Name Role Phone Unavailable Primary Care Provider Unavailabl e Encounter Details Date Type Department Care Team (Late st Contact Info) Description 03/14/2020 Transcribed Document [facility] [place] [facility] [place] [address] ProviderDarrell MD [address] [place] [id number] Social History Tobacco Use Types Packs/Day Years Used Date Smoking Tobacco: Never Assessed Comments Unknown Sex and Gender Information Value Date Recorded Sex Assigned at Not on file Legal Sex Female 6:16 PM CDT Gender Identity Not on file Sexual Orientation Not on file documented as of this encounter Miscellaneous Notes * [employer]ner Conversion Note - Historical ProviderMD - 03/14/2020 1:02 PM CDT DATE OF ADMISSION: 03/14/2020 HISTORY OF PRESENT ILLNESS: This is a 54-year-old female with a chief complaint of chronic neck pain for several years' duration, who is seen today for a followup visit. The patient is following up for medication management and refills. She reports that she is continuing to have neck pain, but reports it is very mild. She says that this was the best that her pain had been in a long time. She reports that adding the diclofenac was significant for pain relief for her. She says that she is using that and no other anti-inflammatory medications at this time. The patient says that she is tolerating medication well. She says that she has been on a steroid dose pack since her last visit. She reports she is also trying to wean herself off her Felt by doing one-half tablet at a time. She says that if she continues to have pain about one hour later, she does take the other half of the tablet. She reports that she is still using her Lyrica three times daily. The patient describes her pain as a mild, aching sensation. She reports that she also does range of motion exercises to help with her pain. The patient says that the use of the medication does make her more functional. She denies any adverse effects including toxic effect, sedation, driving problems, or GI problems. REVIEW OF SYSTEMS: Constitutional, respiratory, cardiovascular, ophthalmology, gastrointestinal, genitourinary, ENT, musculoskeletal, integumentary, neurology, psychiatry, endocrine, hematology were not changed from her last visit on February 15, 2020. PHYSICAL EXAMINATION: VITAL SIGNS: Blood pressure 133/87, weight 212, height 64 inches, heart rate 90, respiratory rate 16, O2 saturation 98%, temperature 96.8. Pain level 1 to 2, hours of sleep 9. No change in physical and neurological exam. [...] Cervical spondylosis. 4. Failed neck surgery. 5. Long-term opioid use. 6. Multiple myofascial pain. 7. Insomnia. 8. Osteoarthritis in multiple joint sites. 9. Chronic bilateral knee pain secondary to osteoarthritis. 10. Intermittent opioid-induced constipation. 11. Long-term use of Lyrica. PLAN: 1. The patient has been fairly [...] self-escalate it. 2. We are going to continue Felt 7.5/325 mg three times daily as needed. I have advised the patient that she would like to wean off that to do that and she can use one-half tablet three times daily with 650 mg of Tylenol with each dose not to exceed 4 g of Tylenol in 24 hours. The patient has voiced understanding of that. She says she will try that and hopefully be able to take less of the medication. I have advised her that if the pain persist after one hour, she can take the other half of the tablet. 3. I have educated the patient to use non-pharmacologic measures to alleviate pain prior to using as needed opioid medication such as heat, ice, rest, relaxation, repositioning, exercise, stretches, TENS unit and/or massage. 4. The patient has been screened for symptoms or risk factors related to COVID-19 both prior to arrival for the visit and upon arrival at the clinic for the visit today. No risk factors or symptoms are identified at today's visit and the patient has been afebrile. 5. Continue Lyrica 100 mg three times daily. 6. Continue diclofenac 75 mg twice daily. 7. Continue Movantik 25 mg daily as needed. 8. Continue Robaxin 750 mg three times daily as needed. 9. I have encouraged the patient to continue her range of motion exercises for her neck. 10. We are going to see the patient back in one month to re-evaluate. 11. The assessment and plan for today's visit have been reviewed by Dr. Krishna, however, I have prescribed the medications for this patient's treatment plan today. /[id number] Jazz FLOYD Church/MIRIAN / PITA / MODL CC: FLOYD Lazo MD Electronically signed by [facility], [facility] Conversion Vamper Cerner at 02/18/2023 5:02 PM CDT documented in this encounter Plan of Treatment Not on file documented as of this encounter Visit Diagnoses Not on filedocumented in this encounter
--- OUTSIDE RECORDS SUMMARY | 2025-06-11 10:11 | XMS_ITS | Encounter Summary ---
Author Organization [employer] ([place], [place], [place], [place]) Address [address] [place] [address] Care Team Providers Care Slip Maker Name Role Phone Unavailable Primary Care Provider Unavailabl e Encounter Details Date Type Department Care Team (Late st Contact Info) Description 10/17/2020 Transcribed Document [facility] [place] [facility] [place] [address] ProviderDarrell MD [address] [place] [phone] Social History Tobacco Use Types Packs/Day Years Used Date Smoking Tobacco: Never Assessed Comments Unknown Sex and Gender Information Value Date Recorded Sex Assigned at Not on file Legal Sex Female 6:16 PM CDT Gender Identity Not on file Sexual Orientation Not on file documented as of this encounter Miscellaneous Notes * Cerner Conversion Note - Historical ProviderMD - 10/17/2020 11:14 PM [facility] ED Discharge Entered On: 10/17/2020 23:14 EST Performed On: 10/17/2020 23:14 EST by Jeannette Fuller RN Discharge Process Patient Disposition : Discharge Personal Belongings With Patient : Yes Patient Education Completed : Yes Teaching Evaluation : Verbalizes understanding IV Discontinued : Not applicable Nursing Documentation Completed : Yes Jeannette Fuller RN - 10/17/2020 23:14 EST ED Discharge Discharge To : Home with ambulatory/outpatient follow-up Mode Of Departure : Wheelchair Accompanied By : Unaccompanied Discharge Instructions Reviewed With, Opportunity For Questions Given : Patient Jeannette Fuller RN - 10/17/2020 23:14 EST documented in this encounter Plan of Treatment Not on file documented as of this encounter Visit Diagnoses Not on filedocumented in this encounter
--- OUTSIDE RECORDS SUMMARY | 2025-06-11 10:11 | XMS_ITS | Encounter Summary ---
Author Organization [employer] ([place], [place], [place], [place]) Address [address] [place] [address] Care Team Providers Care Fire Sprinkler Designer Name Role Phone Unavailable Primary Care Provider Unavailabl e Encounter Details Date Type Department Care Team (Late st Contact Info) Description 01/06/2021 Transcribed Document [facility] [place] Family [place] [facility] [place] [address] ProviderDarrell MD [address] [place], [place] [id number] Social History Tobacco Use Types Packs/Day Years Used Date Smoking Tobacco: Never Assessed Comments Unknown Sex and Gender Information Value Date Recorded Sex Assigned at Not on file Legal Sex Female 6:16 PM CDT Gender Identity Not on file Sexual Orientation Not on file documented as of this encounter Miscellaneous Notes * Cerner Conversion Note - Historical ProviderMD - 01/06/2021 12:45 PM SPOT BILLING CLERK [facility] PACU Summary Primary Physician: SEA OLSON MD Finalized Date/Time: 01/06/21 13:56:56 Pt. Name: FERMIN DEVRIES/Sex: 1965 Female Med Rec #: [id number] Physician: SEA OLSON MD Financial #: [id number] Pt. Type: O Room/Bed: END/ Admit/Disch: 01/06/21 11:16:00 - 01/06/21 13:55:00 Institution: [facility] PACU Case Times Entry 1 In PACU I 01/06/21 13:10:00 Ready for PACU 01/06/21 13:50:00 Discharge Discharge from PACU 01/06/21 13:56:00 I Last Modified By: Nessa Islas RN 01/06/21 13:56:53 [facility] Endo PACU Case Times Audit 01/06/21 13:56:53 Formation Fracturing Operator: [id number] Modifier: [id number] <+> 1 Ready for PACU Discharge <+> 1 Discharge from PACU I Finalized By: Nessa Islas RN Document Signatures Signed By: Nessa Islas RN 01/06/21 13:56 Electronically signed by [employer] [facility] Conversion Retail Sales Clerk Cerner at 02/18/2023 5:12 PM CDT documented in this encounter Plan of Treatment Not on file documented as of this encounter Visit Diagnoses Not on filedocumented in this encounter
--- OUTSIDE RECORDS SUMMARY | 2025-06-11 10:11 | XMS_ITS | Encounter Summary ---
Author Organization [employer] ([place], [place], [place], [place]) Address [address] [place] [address] Care Team Providers Care Preventive Medicine Officer Name Role Phone Unavailable Primary Care Provider Unavailabl e Encounter Details Date Type Department Care Team (Late st Contact Info) Description 02/09/2019 Transcribed Document [facility] [place] [facility] [place] [address] ProviderDarrell MD [address] [place] [phone] Social History Tobacco Use Types Packs/Day Years Used Date Smoking Tobacco: Never Assessed Comments Unknown Sex and Gender Information Value Date Recorded Sex Assigned at Not on file Legal Sex Female 6:16 PM CDT Gender Identity Not on file Sexual Orientation Not on file documented as of this encounter Miscellaneous Notes * Cerner Conversion Note - Historical ProviderMD - 02/09/2019 1:36 PM CDT DATE OF ADMISSION: 02/09/2019 HISTORY OF PRESENT ILLNESS: This is a 53-year-old female with a chief complaint of chronic neck pain for several years' duration. The patient presents today for followup along with medication management. The patient is complaining today of neck pain that radiates into both of her shoulders. The patient describes it as burning, grinding, and pressure. The patient states she is using cold and home exercises and states that it is helping some. The patient states she has also been trying to do more walking and be more active. The patient states that she did see her veterans service representative and has some of her COPD medications changed. She states that also she was supposed to be taking prednisone packs, but states that she has not started it. She states that she typically gains a lot of weight with it, so she is not wanting to start it just yet. The patient states that she is taking her Zantac and states that it is really helping, so she did get the last prescription filled. The patient does continue to take [place] 7.5/325 mg 2-3 times a day as needed for pain. She states that does provide her with good relief when she takes it. The patient also continues to take Robaxin 750 mg 3 times a day as needed for muscle spasms. She states that, that does help her with her muscle spasms and helps her to rest better. The patient does continue to take Lyrica 100 mg 3 times a day. She states that it is also providing her with additional relief. As previously mentioned, the patient does continue to take Movantik. She states that she does have underlying constipation issues outside of opioid-induced constipation. States that the pain medication just does make it worse. She states that the Movantik really helps with that. The patient denies any side effects with her medications to include toxic effect, excess sedation, driving problems, GI problems outside of opioid-induced constipation. The patient's BLAKE was reviewed and found to be appropriate at today's office visit. The patient has been compliant with her urine drug screening. REVIEW OF SYSTEMS: Constitutional, Respiratory, Cardiovascular, Ophthalmology, Gastrointestinal, Genitourinary, ENT, Musculoskeletal, Integumentary, Neurology, Psychiatry, Endocrine, Hematology were not changed from 01/05/2019. PHYSICAL EXAMINATION: VITAL SIGNS: Blood pressure 120/59, weight 222 pounds, height 5 feet 4 inches, heart rate 115, respiratory rate 18, O2 saturation 96% on room air, temperature 97.3. Hours of sleep 8-9. Pain 4/10. No change in physical and neurological exam. Muscle tone, power, sensory, and deep tendon reflexes were unchanged. The nurse notes, vital signs, and medication were reviewed and evaluated. No sign of impairment or toxicity to medicine. The patient's psych evaluation, urine drug screen, and BLAKE were appropriate for taking opioid medication. DIAGNOSTIC STUDIES: The patient had a urine drug screen on 01/05/2019. It was considered appropriate. This was discussed with the patient at today's office visit. ASSESSMENT: 1. Chronic neck pain secondary to degenerative joint disease and degenerative disk disease of the cervical spine. 2. Failed neck surgery. The patient is status post cervical fusion of C5-C7. 3. Cervical radiculopathy. 4. Cervical spondylosis. 5. Long-term opioid use. PLAN: 1. Refill [place] 7.5/325 mg 2-3 times a day as needed for pain. 2. Refill Lyrica 100 mg 3 times a day. 3. The patient is going to follow up in one month for re-evaluation and medication management. 4. Refill Robaxin 750 mg 3 times a day as needed for muscle spasms. 5. I have encouraged the patient to do her home exercises to include walking, stretching, and range of motion exercises for her neck. 6. The patient has been fairly well controlled on current medication. The patient has a good compliance with pain clinic regulation in regard urine drug screen, BLAKE, psych evaluation. We spent more than half of the time discussing the risks, benefits of the medication, how to keep it in safe place, not to share with other people, not to mix with alcohol, or self-escalate it. 7. Continue Movantik 25 mg daily, has refills. 8. The assessment plan for today's visit was reviewed by Dr. Krishna. However, all medications to include scheduled medications were prescribed by me. Dictated By: Lula Denny APRN For Pepe Krishna M.D., BLAKE Pain Certified Pepe Krishna M.D., BLAKE Pain Certified Dict: 02/09/2019 13:36:32 Trans: 02/09/2019 18:08:39 CC1: Pepe Krishna M.D., BLAKE Pain Certified CC2: Dr. Janes Mason Electronically signed by [employer] [facility] Conversion Diplomatic Officer Cerner at 02/18/2023 4:54 PM CDT documented in this encounter Plan of Treatment Not on file documented as of this encounter Visit Diagnoses Not on filedocumented in this encounter
--- OUTSIDE RECORDS SUMMARY | 2025-06-11 10:11 | XMS_ITS | Encounter Summary ---
Author Organization [employer] ([place], [place], [place], [place]) Address [address] [place] [address] Care Team Providers Care Research Spec Name Role Phone Unavailable Primary Care Provider Unavailabl e Encounter Details Date Type Department Care Team (Late st Contact Info) Description 10/17/2020 Transcribed Document [facility] [place] [facility] [place] [address] ProviderDarrell MD [address] [place] [address] Social History Tobacco Use Types Packs/Day Years Used Date Smoking Tobacco: Never Assessed Comments Unknown Sex and Gender Information Value Date Recorded Sex Assigned at Not on file Legal Sex Female 6:16 PM CDT Gender Identity Not on file Sexual Orientation Not on file documented as of this encounter Miscellaneous Notes * [employer]ner Conversion Note - Historical ProviderMD - 10/17/2020 4:38 PM BEAUTY PARLOR CLEANER [place] Suicide Severity Rating Scale (C-SSRS) Entered On: 10/17/2020 22:43 EST Performed On: 10/17/2020 22:40 EST by Jeannette Fuller RN [place] Suicide Severity Rating Scale (C-SSRS) CSSRS Past Month Wish to be : No CSSRS Past Month Suicidal Thoughts : No CSSRS Lifetime Suicide Behavior : No Suicide Severity Rating Score : 0 Suicide Severity Rating : No Additional Care Required at this time Jeannette Fuller RN - 10/17/2020 22:40 EST documented in this encounter Plan of Treatment Not on file documented as of this encounter Visit Diagnoses Not on filedocumented in this encounter
--- OUTSIDE RECORDS SUMMARY | 2025-06-11 10:11 | XMS_ITS | Encounter Summary ---
Author Organization [employer] ([place], [place], [place], [place]) Address [address] [place] [address] Care Team Providers Care Conservation Assistant Name Role Phone Unavailable Primary Care Provider Unavailabl e Encounter Details Date Type Department Care Team (Late st Contact Info) Description 02/15/2020 Transcribed Document [facility] [place] Family [place] [address] [place] [id number] ProviderDarrell MD [address] [place] [phone] Social History Tobacco Use Types Packs/Day Years Used Date Smoking Tobacco: Never Assessed Comments Unknown Sex and Gender Information Value Date Recorded Sex Assigned at Not on file Legal Sex Female 6:16 PM CDT Gender Identity Not on file Sexual Orientation Not on file documented as of this encounter Miscellaneous Notes * [employer]ner Conversion Note - Historical ProviderMD - 02/15/2020 12:32 PM CDT DATE OF ADMISSION: 02/15/2020 HISTORY OF PRESENT ILLNESS: This is a 54-year-old female with a chief complaint of chronic neck pain for several years' duration, who is here today for a followup visit. The patient is following up for medication refills of her Forsyth and gabapentin. She reports that she is having pain in the left side of her neck. She says the pain never changes. She reports that the pain is [id number] at times. She says that the pain does radiate to the left shoulder. She reports that her pain is an aching sensation. She says she does have associated symptoms of depression and fatigue. She is using cold in addition to taking her Lyrica and Forsyth as prescribed. The patient says she does get significant help and relief from her medication. She says that the use of the medication does make her more functional. She reports that without the medication, she does have severe pain. She says that she takes it exactly as prescribed. She denies any adverse effects including toxic effect, sedation, driving problems, or GI problems. The patient reports that she did go to the emergency room as she was advised at her last visit. She reported that she did have negative testing for COVID-19. She says that she was given treatment for an upper respiratory infection. She reports, however, she has had for the last several days extreme exhaustion and fatigue that have been ongoing since that time, but worse over the last few days. She says that she has associated shortness of breath and feels like she is drowning. The patient says that she is taking a diuretic which does help some. She has a history of COPD as well as some cardiac issues. The patient does have sleep apnea and reports that she has issues with compliance due to ulcerations in her mouth and tooth loss. She says that the senior software engineer analytics did say she was negative for Sjogren's but she does have an elevated ESR. The patient says that she does have a ethylene oxide panelboard operator, Dr. Crow at [place], however, she has not seen him in 2 years. REVIEW OF SYSTEMS: The patient is reporting extreme fatigue, shortness of breath, upper respiratory symptoms, depressed mood increased since her last visit. Otherwise, constitutional, respiratory, cardiovascular, ophthalmology, gastrointestinal, genitourinary, ENT, musculoskeletal, integumentary, neurology, psychiatry, endocrine, hematology were unchanged from January 18, 2020. PHYSICAL EXAMINATION: VITAL SIGNS: Blood pressure 126/75, weight 212, height 64 inches, heart rate 95, respiratory rate 16, O2 saturation 97%, temperature 96.1. Pain level, 3. Hours of sleep, 8. No change in physical and neurological [...] with alcohol, or self-escalate it. 2. Continue Lyrica 100 mg 3 times daily. 3. Continue [place] 7.5/325 mg 3 times daily as needed. 4. I have educated the patient to use non-pharmacologic measures to alleviate pain prior to using as needed opioid medication such as heat, ice, rest, relaxation, repositioning, exercise, stretches, TENS unit and/or massage. 5. Continue Movantik 25 mg daily as needed. 6. Continue Robaxin 750 mg 3 times daily as needed. 7. I have advised the patient to call today and make an appointment with her ethylene oxide panelboard operator in light of her symptoms so that it can be ruled out if there is any cardiac issue ongoing and she has voiced understanding and agrees to do that today. 8. We are going to see the patient back in 1 month to re-evaluate. 9. The assessment and plan for today's visit has been reviewed by Dr. Krishna, however, I have prescribed the medications for this patient's treatment plan today. /[id number] FLOYD Mullins/MIRIAN / PITA / MODL documented in this encounter Plan of Treatment Not on file documented as of this encounter Visit Diagnoses Not on filedocumented in this encounter
--- OUTSIDE RECORDS SUMMARY | 2025-06-11 10:11 | XMS_ITS | Encounter Summary ---
Author Organization [employer] ([place], [place], [place], [place]) Address [address] [place] [address] Care Team Providers Care Pleating Supervisor Name Role Phone Unavailable Primary Care Provider Unavailabl e Encounter Details Date Type Department Care Team (Late st Contact Info) Description 05/10/2020 Transcribed Document [facility] [place] [address] ProviderDarrell MD [address] [place] [id number] Social History Tobacco Use Types Packs/Day Years Used Date Smoking Tobacco: Never Assessed Comments Unknown Sex and Gender Information Value Date Recorded Sex Assigned at Not on file Legal Sex Female 6:16 PM CDT Gender Identity Not on file Sexual Orientation Not on file documented as of this encounter Miscellaneous Notes * [employer] Conversion Note - Historical ProviderMD - 05/10/2020 2:00 PM CDT DATE OF ADMISSION: 05/10/2020 HISTORY OF PRESENT ILLNESS: This is a 55-year-old female with a chief complaint of chronic neck pain, radiated to the upper extremity, came today for followup. The patient has been fairly well controlled in our clinic with her current neck pain. We have different interventional treatment including cervical epidural steroid injection, facet injection, and even we tried with the spinal cord stimulator, however, the trial was not successful. She is currently taking her medication that give her more control and relief with her pain, she has taken her hydrocodone 7.5/325 three times a day and Lyrica 100 mg three times a day. She is following all the rules and regulations regard using opioid medication in our clinic, and she denied any major side effects to her medication, which include toxic effects, sedation, driving problem, or GI problem. Her foundry finisher recently placed her on Cymbalta 30 mg at night that gave her some help and relief. REVIEW OF SYSTEMS: Constitutional, respiratory, cardiovascular, ophthalmology, gastrointestinal, genitourinary, ENT, musculoskeletal, integumentary, neurology, psychiatry, endocrine, hematology were not changed from her last visit, which is on April 11, 2020. PHYSICAL EXAMINATION: VITAL SIGNS: Blood pressure 130/73, heart rate is 91, respirations 16, saturation 98%, temperature 97.1. Pain level 3. Hours of sleep is 8. No change in physical and neurological exam. Muscle tone power sensory and deep tendon reflexes were unchanged. The nurse's notes, vital signs, and medication were reviewed and evaluated. No sign of impairment or toxicity to medicine. The patient psych evaluation, urine drug screen, and BLAKE were appropriate for taking opioid medication. ASSESSMENT: 1. Chronic neck pain, secondary to degenerative joint disease and degenerative disk disease to the cervical spine. 2. Failed neck surgery. 3. Cervical radiculopathy. 4. Cervical spondylosis. 5. Multiple myofascial pain of the neck. 6. Insomnia. 7. Osteoarthritis of multiple joints, including knee joint. 8. Long-term opioid use. 9. Long-term use of high-risk medication, Lyrica. 10. Intermittent opioid-induced constipation. PLAN: 1. We are going to continue with hydrocodone 7.5/325 three times a day. 2. Lyrica 100 mg three times a day. 3. Robaxin 750 mg twice a day. 4. Diclofenac 75 mg twice a day. 5. Movantik 25 mg once a day. 6. The patient has been fairly well [...] mix with alcohol, or self-escalate it. 7. I encouraged the patient to continue home exercise, stretching, and walking. 8. I agree with her foundry finisher to continue with Cymbalta 30 mg at night. 9. I am going to see the patient after 1 month to re-evaluate her. The patient has been screened for symptoms or risk factors related to COVID-19 both prior to arrival for the visit and upon arrival at the clinic for the visit today. No risk factors or symptoms are identified at today's visit and the patient has been afebrile. /[id number] Pepe Krishna MD, BLAKE Pain Certified KR/AQ / EN / MODL CC: Janes Mason MD Electronically signed by [facility], [facility] Conversion Media Relations Coordinator Cerner at 02/18/2023 5:04 PM CDT documented in this encounter Plan of Treatment Not on file documented as of this encounter Visit Diagnoses Not on filedocumented in this encounter
--- OUTSIDE RECORDS SUMMARY | 2025-06-11 10:11 | XMS_ITS | Encounter Summary ---
Author Organization [employer] ([place], [place], [place], [place]) Address [address] [place] [address] Care Team Providers Care Steward/Stewardess Deck Name Role Phone Unavailable Primary Care Provider Unavailabl e Encounter Details Date Type Department Care Team (Late st Contact Info) Description 10/17/2020 Transcribed Document [facility] [place] [facility] [place] [address] ProviderDarrell MD [address] [place] [id number] Social History Tobacco Use Types Packs/Day Years Used Date Smoking Tobacco: Never Assessed Comments Unknown Sex and Gender Information Value Date Recorded Sex Assigned at Not on file Legal Sex Female 6:16 PM CDT Gender Identity Not on file Sexual Orientation Not on file documented as of this encounter Miscellaneous Notes * Cerner Conversion Note - Darrell Flores MD - 10/17/2020 11:07 PM 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 If you had special tests, such as EKG???s or X-rays, the interpretation of your tests given to you by the Emergency Department Physician is a preliminary report. Some fractures and illnesses fail to show up on preliminary tests. These will be reviewed again and we will call you if there are any new suggestions. If your symptoms continue notify your physician. After you leave, you should follow the instructions provided. What to do next Follow-Up Appointments Follow Up with MAXIMILIANO GIL When Within 2 to 3 days Comments Continue medications as prescribed follow-up with PCP and pulmonology return to the emergency department with new or worsening symptoms. Where: [address] [facility] [address] [place] [address] Business (1) Follow Up with REYES BRONSON When Within 2 to 3 days Where: [address], [address] [place] [address] [facility] (1) Allergies Tylenol with Codeine (Vomiting, Nausea, Chest pain) penicillin (Unknown) Immunizations This Visit No Immunizations Found Medications What How Much When Instructions Next Dose acetaminophen-hydrocodone (Burke 7.5 mg-325 mg oral tablet) 1 Tablet(s) Oral Two Times A Day as needed for for pain albuterol (albuterol 5 mg/ mL (0.5%) inhalation solution) 0.5 Milliliter(s) Nebulized Inhalation Every 6 Hours Duration: 30 Day(s) albuterol (ProAir HFA 90 mcg/ inh inhalation aerosol) 2 Puff(s) Inhalation Four Times A Day as needed for as needed for wheezing cholecalciferol (Vitamin D3) Oral Every Day citalopram 40 Milligram(s) Oral Every Day gabapentin 200 Milligram(s) Oral At Bedtime gabapentin 100 Milligram(s) Oral Two Times A Day loratadine (loratadine 10 mg oral tablet) 1 Tablet(s) Oral Every Day Duration: 30 Day(s) methocarbamol (Robaxin) 750 Milligram(s) Oral Three Times A Day mirtazapine (Remeron) 15 Milligram(s) Oral At Bedtime The home medications listed are only as accurate as the information you provided. Please continue taking all of your medications prescribed by your Primary Care Provider unless specifically told to change or discontinue the medication. Please direct any questions regarding your home medications to your Primary Care Provider. Take your medications faithfully. Do NOT skip medication. Do NOT stop taking medications without the direction of a physician. Carry a list of your medications with you at all times, and take this medication list with you to your first follow up visit. Report any side effects. Avoid herbal remedies unless discussed with your physician. As part of your treatment plan, your physician may have prescribed a limited course of a controlled substance. This medication may be given to help people with moderate or severe pain or for other medical conditions, but there are risks involved with treatment. Common side effects may include nausea, constipation, drowsiness, sweating, itching, dry mouth, and rash. More serious side effects may include cognitive and motor impairment, like problems with thinking, concentrating, alertness, and movement (e.g. slowed reflexes), and driving and operating heavy machinery can be dangerous. It is important for you to talk to your physician if you have these side effects or questions. These controlled substances can produce physical dependence and be habit-forming if taken for an extended period of time, which means that the body has gotten used to them and may experience withdrawal symptoms if they are abruptly stopped. Withdrawal symptoms can include runny nose, sweating, goose bumps, diarrhea, abdominal cramping, rapid heartbeat, difficulty sleeping, and nervousness. Please dispose of unused and medications per pharmacy guidance. Test Results Laboratory or Other Results This Visit (last charted value for your 10/17/2020 visit) Hematology 10/17/2020 5:48 PM WBC: 19.4 K/uL -- Normal range between ( 4.5 and 10.5 ) RBC: 4.53 Million/uL -- Normal range between ( 3.93 and 5.22 ) Hct: 39.9 % -- Normal range between ( 34.1 and 44.9 ) Hgb: 12.9 g/dL -- Normal range between ( 11.2 and 15.7 ) Platelet Count: 332 K/uL -- Normal range between ( 163 and 369 ) MCH: 28.5 pg -- Normal range between ( 25.6 and 32.2 ) MCHC: 32.3 Gram/dL -- Normal range between ( 32.2 and 36.5 ) MCV: 88.1 fL -- Normal range between ( 79.0 and 94.8 ) Slide Review: No Eos %: 0.1 % -- Normal range between ( 0.0 and 7.0 ) [place] #: 0.83 K/uL -- Normal range between ( 0.16 and 1.00 ) Eos #: 0.01 x10(3)/uL -- Normal range between ( 0.00 and 0.80 ) [place] %: 4.3 % -- Normal range between ( 3.0 and 9.0 ) Baso %: 0.4 % -- Normal range between ( 0.0 and 1.5 ) Baso #: 0.07 x10(3)/uL -- Normal range between ( 0.00 and 0.20 ) RDW: 13.4 % -- Normal range between ( 11.7 and 14.9 ) Neut %: 80.7 % -- Normal range between ( 34.0 and 71.0 ) Neut #: 15.72 K/uL -- Normal range between ( 1.56 and 6.13 ) Lymph %: 11.7 % -- Normal range between ( 19.3 and 53.1 ) Lymph #: 2.28 x10(3)/uL -- Normal range between ( 1.00 and 3.90 ) MPV: 9.5 fL -- Normal range between ( 9.4 and 12.4 ) IG#: 0.54 x10(3)/uL -- Normal range between ( 0.00 and 0.05 ) IG%: 2.80 % -- Normal range between ( 0.00 and 0.60 ) General Chemistry 10/17/2020 5:48 PM Creatinine Level: 0.90 mg/dL -- Normal range between ( 0.55 and 1.02 ) Sodium Level: 134 mmol/L -- Normal range between ( 136 and 146 ) Potassium Level: 4.5 mmol/L -- Normal range between ( 3.5 and 5.1 ) Chloride Level: 103 mmol/L -- Normal range between ( 102 and 112 ) Carbon Dioxide Level: 24 mmol/L -- Normal range between ( 21 and 32 ) Anion Gap: 12 -- Normal range between ( 9 and 20 ) Bun/Creatinine: 20.0 -- Normal range between ( 8.0 and 20.0 ) Calcium Level: 9.2 mg/dL -- Normal range between ( 8.4 and 10.1 ) eGFR : >60 mL/min/1.73m2 eGFR NonAfrican: >60 mL/min/1.73m2 Glucose Level: 149 mg/dL -- Normal range between ( 74 and 106 ) Blood Urea Nitrogen: 18 mg/dL -- Normal range between ( 7 and 22 ) 10/17/2020 5:35 PM Lactic Acid Level: 1.7 mmol/L -- Normal range between ( 0.4 and 2.0 ) Cardiac Specific Markers 10/17/2020 5:48 PM Troponin I Ultra: <0.015 ng/mL -- Normal range between ( 0.015 and 0.045 ) Education Materials Community-Acquired Pneumonia, Adult Pneumonia is a type of lung infection that causes swelling in the airways of the lungs. Mucus and fluid may also build up inside the airways. This may cause coughing and difficulty breathing. There are different types of pneumonia. One type can develop while a person is in a hospital. A different type is called community-acquired pneumonia. It develops in people who are not, and have not recently been, in the hospital or another type of health care facility. What are the causes? This condition may be caused by: ??? Viruses. This is the most common cause of pneumonia. ??? Bacteria. Community-acquired pneumonia is often caused by Streptococcus pneumoniae bacteria. These bacteria are often passed from one person to another by breathing in droplets from the cough or sneeze of an infected person. ??? Fungi. This is the least common cause of pneumonia. What increases the risk? The following factors may make you more likely to develop this condition: ??? Having a chronic disease, such as chronic obstructive pulmonary disease (COPD), asthma, congestive heart failure, cystic fibrosis, diabetes, or kidney disease. ??? Having early-stage or late-stage HIV. ??? Having sickle cell disease. ??? Having had your spleen removed (splenectomy). ??? Having poor dental hygiene. ??? Having a medical condition that increases the risk of breathing in (aspirating) secretions from your own mouth and nose. ??? Having a weakened body defense system (immune system). ??? Being a smoker. ??? Traveling to areas where pneumonia-causing germs commonly exist. ??? Being around animal habitats or animals that have pneumonia-causing germs, including birds, bats, rabbits, cats, and farm animals. What are the signs or symptoms? Symptoms of this condition include: ??? A dry cough. ??? A wet (productive) cough. ??? Fever. ??? Sweating. ??? Chest pain, especially when breathing deeply or coughing. ??? Rapid breathing or difficulty breathing. ??? Shortness of breath. ??? Shaking chills. ??? Fatigue. ??? Muscle aches. How is this diagnosed? This condition may be diagnosed based on: ??? Your medical history. ??? A physical exam. You may also have tests, including: ??? Chest X-rays. ??? Tests of your blood oxygen level and other blood gases. ??? Tests on blood, mucus (sputum), fluid around your lungs (pleural fluid), and urine. If your pneumonia is severe, other tests may be done to find the exact cause of your illness. How is this treated? Treatment for this condition depends on many factors, such as the cause of your pneumonia, the medicines you take, and other medical conditions that you have. For most adults, treatment and recovery from pneumonia may occur at home. In some cases, treatment must happen in a hospital. Treatment may include: ??? Medicines that are given by mouth or through an IV, including: ? Antibiotic medicines, if the pneumonia was caused by bacteria. ? Antiviral medicines, if the pneumonia was caused by a virus. ??? Being given extra oxygen. ??? Respiratory therapy. Although rare, treating severe pneumonia may include: ??? Using a machine to help you breathe (mechanical ventilation). This is done if you are not breathing well on your own and you cannot maintain a safe blood oxygen level. ??? Thoracentesis. This is a procedure to remove fluid from around one lung or both lungs to help you breathe better. Follow these instructions at home: Medicines ??? Take [id number] and prescription medicines only as told by your health care provider. ? Only take cough medicine if you are losing sleep. Be aware that cough medicine can prevent your body's natural ability to remove mucus from your lungs. ??? If you were prescribed an antibiotic medicine, take it as told by your health care provider. Do not stop taking the antibiotic even if you start to feel better. General instructions ??? Sleep in a semi-upright position at night. Try sleeping in a reclining chair, or place a few pillows under your head. ??? Rest as needed and get at least 8 hours of sleep each night. ??? Drink enough water to keep your urine pale yellow. This will help to thin out mucus secretions in your lungs. ??? Eat a healthy diet that includes plenty of vegetables, fruits, whole grains, low-fat dairy products, and lean protein. ??? Do not use any products that contain nicotine or tobacco, such as cigarettes, e-cigarettes, and chewing tobacco. If you need help quitting, ask your health care provider. ??? Keep all follow-up visits as told by your health care provider. This is important. How is this prevented? You can lower your risk of developing community-acquired pneumonia by: ??? Getting a pneumococcal vaccine. There are different types and schedules of pneumococcal vaccines. Ask your health care provider which option is best for you. Consider getting the vaccine if: ? You are older than 65 years of age. ? You are older than 19 years of age and are undergoing cancer treatment, have chronic lung disease, or have other medical conditions that affect your immune system. Ask your health care provider if this applies to you. ??? Getting an influenza vaccine every year. Ask your health care provider which type of vaccine is best for you. ??? Getting regular checkups from your dentist. ??? Washing your hands often. If soap and water are not available, use hand dray driver. Contact a health care provider if: ??? You have a fever. ??? You are losing sleep because you cannot control your cough with cough medicine. Get help right away if: ??? You have worsening shortness of breath. ??? You have increased chest pain. ??? Your sickness becomes worse, especially if you are an older adult or have a weakened immune system. ??? You cough up blood. Summary ??? Pneumonia is an infection of the lungs. ??? Community-acquired pneumonia develops in people who have not been in the hospital. It can be caused by bacteria, viruses, or fungi. ??? This condition may be treated with antibiotics or antiviral medicines. ??? Severe cases may require hospitalization, mechanical ventilation, and other procedures to drain fluid from the lungs. This information is not intended to replace advice given to you by your health care provider. Make sure you discuss any questions you have with your health care provider. Document Released: 10/21/2006 Document Revised: 06/18/2019 Document Reviewed: 06/18/2019 [employer] Patient Education ?? 2020 [employer] Emergency Awareness and Preventative Care STROKE is an EMERGENCY Every Minute Counts Act FAST and Check for these signs: FACE Does the face look uneven? ARM Does one arm drift down? SPEECH Does their speech sound strange? TIME Call at any sign of stroke Stroke Risk Factors Atrial Fibrillation (irregular heartbeat) Diabetes Family history of stroke Heart Disease Heavy alcohol use High Blood Pressure High Cholesterol Physical inactivity and obesity Smoking Cigarette Smoking The facts are clear, cigarette smoking will shorten your life. Smoking can cause many illnesses along the way. As a healthcare provider, we recommend that you stop smoking. Assistance with quitting is available by contacting 2-489-AKAYNOW. This is a free resource providing counseling, support, and referral. Or you may contact your personal physician. [employer] Suicide Prevention Lifeline: The National Suicide Prevention Lifeline is a national network of local crisis centers that provides free and confidential emotional support to people in suicidal crisis or emotional distress 24 hours a day, 7 days a week. Don't Wait! Stop a Heart Attack Before it Starts What is a heart attack? A heart attack is damage or to a part of the heart from severely decreased or lack of blood flow to the heart. Over time, arteries can become narrow from the buildup of fat and cholesterol, which is called plaque. The plaque can rupture causing a blood clot to form. When the blood clot forms, the artery can become severely narrowed or completely blocked, causing a heart attack. Heart attack is the leading cause of in the [place]. 85% of muscle damage occurs within the first 2 hours. Delay in the recognition of heart attack symptoms increases the chances of . Know the early symptoms of a heart attack: Nausea Feeling of fullness in chest Jaw Pain Pain that travels down one or both arms Fatigue/being tired Anxiety Back Pain Chest pressure, squeezing, or discomfort Shortness of breath Sweating, or a cold sweat Feeling of impending doom There are unusual signs of a heart attack, too! Women, the elderly, and diabetics may present with atypical symptoms: Fainting/dizziness Weakness Confusion Risk Factors for a Heart Attack Some heart disease risk factors, such as age and family history, cannot be changed. Others, like smoking and lack of exercise, can be changed. Smoking High Cholesterol High Blood Pressure Family History Obesity Age Gender (Males are at higher risk) Lack of Exercise Diabetes Diet Stress Excessive Alcohol Intake If you or someone you know is experiencing the signs and symptoms of a heart attack, DON???T DELAY. Call immediately and seek help. If someone collapses, perform CPR! Do not attempt to drive if you are having symptoms of heart attack. Hands-Only CPR Why Hands-Only CPR? Hands-Only CPR has been shown to be as effective as conventional CPR for cardiac arrests that occur outside of a hospital. Survival depends on immediately receiving CPR from someone nearby. How do you perform Hands-Only CPR? There are two easy steps: Call if you see a teen or adult collapse Push hard and fast in the center of the chest at a beat of 100 beats per minute. Save a life! 4 WAYS TO GET AHEAD OF SEPSIS SEPSIS is a MEDICAL EMERGENCY. Time matters! Infections put you and your family at risk for a life-threatening condition called sepsis. Sepsis is the body's extreme response to an infection. It is life-threatening, and without timely treatment, sepsis can rapidly lead to tissue damage, organ failure, and . Sepsis happens when an infection you already have-in your skin, lungs, urinary tract or somewhere else-triggers a chain reaction throughout your body. 1 PREVENT INFECTIONS Take good care of chronic conditions. Talk to your doctor about getting the recommended vaccines. 2 PRACTICE GOOD HYGIENE Wash your hands frequently. Keep cuts or open sores clean and covered until they are healed. 3 KNOW THE SYMPTOMS Confusion or disorientation Shortness of breath High heart rate Fever, shivering, or feeling very cold Extreme pain or discomfort Clammy or sweaty skin 4 ACT FAST Get medical care IMMEDIATELY if you suspect sepsis or if you have an infection that is not getting better or is getting worse. To learn more about sepsis and how to prevent infections, visit www.cdc.gov/sepsis. The examination and treatment you have received in the Emergency Department has been done to provide an appropriate evaluation and stabilizing treatment on an emergency basis only. Given the limited resources, it is not meant to be a substitute for complete medical care. The follow-up doctor you named will receive a copy of your records and all test reports. IT IS IMPORTANT THAT YOU SCHEDULE A FOLLOW-UP APPOINTMENT AND ARE RE-EVALUATED. You should report any new complaints, symptoms, or remaining problems at that time. IT IS IMPOSSIBLE FOR THE EMERGENCY DEPARTMENT TO RECOGNIZE AND TREAT ALL ELEMENTS OF INJURY OR ILLNESS IN A SINGLE VISIT. If you have been referred to a specialist physician, it means that we believe you may have a condition that requires the expertise of a specialist. These physicians work in partnership with the hospital and have agreed to see referred patients in their office for further evaluation. KEEP IN MIND THAT THE SPECIALIST HAS HIS/HER OWN OFFICE POLICIES WHICH MAY REQUIRE PROPER INSURANCE OR PAYMENT UP FRONT BEFORE THE SPECIALIST WILL SEE YOU. It is your responsibility to call the specialist physician to make an appointment. We do not have the ability to refer patients to specialists/physicians that work with specific insurance companies. Please be advised that all financial charges or billing practices are determined by that practice, not the hospital. If your insurance company requires that you see a specialist from their approved list, it is your responsibility to contact your insurance company to make those arrangements. It is also your responsibility to follow any other requirements of your insurance company necessary to obtain coverage for claims submitted. We will bill your insurance; however, you are responsible today for any co-pay amounts. You will receive a separate bill for any services you may have received including: emergency, radiology, or pathology physicians. Patient Name:FERMIN DEVRIES I have received this information and was given the opportunity to ask questions. Patient/Hose Cementer Name: Patient/Hose Cementer Signature: Relationship to Patient: Clinician/Hospital Hose Cementer Signature: Please Provide a Telephone Number Where You Can Be Reached: Is it Permissible To Leave a Message? Date: documented in this encounter Plan of Treatment Not on file documented as of this encounter Visit Diagnoses Not on filedocumented in this encounter
--- OUTSIDE RECORDS SUMMARY | 2025-06-11 10:11 | XMS_ITS | Encounter Summary ---
Author Organization [facility] ([place], [place], [place], [place]) Address [address] [place] [address] Care Team Providers Care Trust Manager Assistant Name Role Phone Unavailable Primary Care Provider Unavailabl e Encounter Details Date Type Department Care Team (Late st Contact Info) Description 03/17/2019 Transcribed Document [facility] [place] Family Medicine [facility] [place] [address] ProviderDarrell MD [address] [place] [id number] Social History Tobacco Use Types Packs/Day Years Used Date Smoking Tobacco: Never Assessed Comments Unknown Sex and Gender Information Value Date Recorded Sex Assigned at Not on file Legal Sex Female 6:16 PM CDT Gender Identity Not on file Sexual Orientation Not on file documented as of this encounter Miscellaneous Notes * Cerner Conversion Note - Historical ProviderMD - 03/17/2019 1:53 PM CDT DATE OF ADMISSION: 03/16/2019 HISTORY OF PRESENT ILLNESS: This is a 53-year-old female with chief complaint is chronic neck pain for several years' duration, came today for followup. The patient mentioned that the combination of interventional treatment with cervical epidural steroid injection as well as her medication has given her good help and relief and she is able to manage her pain and able to accomplish so many things at home and outside the house. She is currently on hydrocodone 7.5/325 take 2 to 3 times a day and Lyrica 100 mg 3 times a day and methocarbamol 750 mg 3 times a day. Patient mentioned that she feels that the medication is not giving her enough control for 12-hour relief, especially when she takes the last dose at night and then next morning, she feels like the effect of medication has already gone. She wishes in the future she might need to be more on extended pain medication to help her more than six hours. She denied any major side effect to her medication, which include toxic effect, sedation, driving problem, or GI problem. The patient mentioned that she stopped the amitriptyline because it is drying her mouth and causing decay of her teeth. REVIEW OF SYSTEMS: Constitutional, Respiratory, Cardiovascular, Ophthalmology, Gastrointestinal, Genitourinary, ENT, Musculoskeletal, Integumentary, Neurology, Psychiatry, Endocrine, Hematology were not changed from her last visit, February 09, 2019. PHYSICAL EXAMINATION: Blood pressure 126/67, heart rate is 104, respirations 16, saturation 95%, temperature 97.3. Pain level 3. Hours of sleep 8. [...] to the cervical spine. 2. Failed neck surgery, status post cervical fusion. 3. Cervical radiculopathy. 4. Cervical spondylosis. 5. Long-term opioid use. PLAN: 1. The patient has been fairly [...] with alcohol, or self-escalate it. 2. Continue with hydrocodone 7.5/325, 2 to 3 times a day. 3. Lyrica 100 mg 3 times a day. 4. Robaxin 750 mg 3 times a day. 5. The patient already stopped the amitriptyline without major issue or problem, so we can continue off of that medication. 6. Continue Movantik 25 mg once a day. 7. I encouraged the patient to continue home exercise, stretching, and walking. 8. I am going to see the patient after one month to reevaluate her. Pepe Krishna M.D., BLAKE Pain Certified Dict: 03/17/2019 13:53:24 Trans: 03/17/2019 16:42:32 Processed: 03/17/2019 17:54:53 Eastern CC1: Pepe Krishna M.D., BLAKE Pain Certified CC2: Dr. Janes Mason documented in this encounter Plan of Treatment Not on file documented as of this encounter Visit Diagnoses Not on filedocumented in this encounter
--- OUTSIDE RECORDS SUMMARY | 2025-06-11 10:11 | XMS_ITS | Encounter Summary ---
Author Organization [email or web address] ([place], [place], [place], [place]) Address [address] [place] [address] Care Team Providers Care Chemotherapist Name Role Phone Unavailable Primary Care Provider Unavailabl e Encounter Details Date Type Department Care Team (Late st Contact Info) Description 10/18/2020 Transcribed Document [facility] [place] Family Medicine [facility] [place] [address] ProviderDarrell MD [facility] [place] [address] Social History Tobacco Use Types Packs/Day Years Used Date Smoking Tobacco: Never Assessed Comments Unknown Sex and Gender Information Value Date Recorded Sex Assigned at Not on file Legal Sex Female 6:16 PM CDT Gender Identity Not on file Sexual Orientation Not on file documented as of this encounter Miscellaneous Notes * Cerner Conversion Note - Historical ProviderMD - 10/18/2020 9:38 AM DIRECTOR CLINICAL OPERATIONS CR Chest 2 Vws Ordered: 10/17/2020 Auth (Verified) Reason for Exam: SOA 10/18/2020 08:53 10/18/2020 09:38 (QUANG OLIVA APRN) Reviewed by Provider, No further action required x1 documented in this encounter Plan of Treatment Not on file documented as of this encounter Visit Diagnoses Not on filedocumented in this encounter
--- OUTSIDE RECORDS SUMMARY | 2025-06-11 10:11 | XMS_ITS | Encounter Summary ---
Author Organization [employer] ([place], [place], [place], [place]) Address [address] [place] [address] Care Team Providers Care Hand Painter Name Role Phone Unavailable Primary Care Provider Unavailabl e Encounter Details Date Type Department Care Team (Late st Contact Info) Description 10/30/2018 Transcribed Document [facility] [place] [facility] [place] [address] ProviderDarrell MD [address] [place] [id number] Social History Tobacco Use Types Packs/Day Years Used Date Smoking Tobacco: Never Assessed Comments Unknown Sex and Gender Information Value Date Recorded Sex Assigned at Not on file Legal Sex Female 6:16 PM CDT Gender Identity Not on file Sexual Orientation Not on file documented as of this encounter Miscellaneous Notes * Cerner Conversion Note - Historical MD Mark - 10/30/2018 1:58 PM RATE SETTER DATE OF ADMISSION: 10/30/2018 HISTORY OF PRESENT ILLNESS: This is a 53-year-old female with a chief complaint of chronic neck pain for several years' duration. The patient presents today for followup visit and medication management. The patient does continue to complain of pain in left side of her neck. She states she has only had two headaches this week, but states that is probably related to stress. The patient states that overall she seems to be doing fairly well with her migraines and headaches. The patient describes her neck pain as aching. She states she is using cold and stretches to try to help her. The patient states that does help her some with her pain. The patient states the increase in Lyrica has been beneficial and has helped her. Of note, the patient recently followed back up with her senior web architect and states that she was diagnosed with COPD stage 2. She states that they are starting on Symbicort and Spiriva to try to help her with it. The patient states that also they did tell her that she does have a small lung nodule in her lower lobe and that will heal itself. The patient does continue to take Surprise 7.5/325 mg 2-3 times a day as needed for pain. She states this does provide good relief when she takes it. The patient also continues to take Robaxin 750 mg 3 times a day as needed for muscle spasms. She states that she has been taking that consistently and has noticed a lot better relief with her muscle spasms. The patient denies any side effects with her medications to include excess sedation, driving problems, GI problems. The patient's BLAKE was reviewed and found to be appropriate at today's office visit. The patient has been compliant with her urine drug screening. REVIEW OF SYSTEMS: Constitutional, Respiratory, Cardiovascular, Ophthalmology, Gastrointestinal, Genitourinary, ENT, Musculoskeletal, Integumentary, Neurology, Psychiatry, Endocrine, Hematology were not changed from 09/30/2018. PHYSICAL EXAMINATION: VITAL SIGNS: Blood pressure 126/75, weight 217 pounds, height 5 feet 4 inches, heart rate 108, respiratory rate 16, O2 saturation 98% on room air, temperature 96.8. Hours of sleep 8. Pain 3/10. No change in physical and neurological exam. [...] surgery. The patient is status post cervical fusion, C5 through C7. 3. Cervical radiculopathy. 4. Cervical spondylosis. PLAN: 1. Refill Surprise 7.5/325 mg 2-3 times a day as needed for pain. 2. Continue Robaxin 750 mg 3 times a day as needed for muscle spasms, patient has refills. 3. Refill Lyrica 100 mg 3 times a day. 4. The patient is going to follow up in one month for re-evaluation and medication management. 5. Encourage the patient to continue doing her home exercise regimen to include walking, stretching, and range of motion exercises. 6. The patient has been fairly well [...] with alcohol, or self-escalate it. 7. The assessment and plan for today's visit has been reviewed by Dr. Krishna. However, I did prescribe all medications to include scheduled medications for this patient's treatment plan. Dictated By: Lula Denny APRN For Pepe Krishna M.D., BLAKE Pain Certified Pepe Krishna M.D., BLAKE Pain Certified Dict: 10/30/2018 13:58:26 Trans: 10/30/2018 16:26:04 CC1: Pepe Krishna M.D., BLAKE Pain Certified CC2: Dr. Janes Mason Electronically signed by [facility] Conversion Wellness Manager Cerner at 02/18/2023 4:46 PM CDT documented in this encounter Plan of Treatment Not on file documented as of this encounter Visit Diagnoses Not on filedocumented in this encounter
--- OUTSIDE RECORDS SUMMARY | 2025-06-11 10:11 | XMS_ITS | Encounter Summary ---
Author Organization [employer] ([place], [place], [place], [place]) Address [address] [place] [address] Care Team Providers Care Resident Medical Officer Name Role Phone Unavailable Primary Care Provider Unavailabl e Encounter Details Date Type Department Care Team (Late st Contact Info) Description 01/06/2021 Transcribed Document [facility] [place] Family Medicine [facility] [place] [address] ProviderDarrell MD [address] [place], [place] [id number] Social History Tobacco Use Types Packs/Day Years Used Date Smoking Tobacco: Never Assessed Comments Unknown Sex and Gender Information Value Date Recorded Sex Assigned at Not on file Legal Sex Female 6:16 PM CDT Gender Identity Not on file Sexual Orientation Not on file documented as of this encounter Miscellaneous Notes * [employer]ner Conversion Note - Historical ProviderMD - 01/06/2021 1:08 PM PHYSICIAN IN PRIVATE PRACTICE Patient Education Materials Follows: Hemorrhoids Hemorrhoids are swollen veins that may develop: ??? In the butt (rectum). These are called internal hemorrhoids. ??? Around the opening of the butt (anus). These are called external hemorrhoids. Hemorrhoids can cause pain, itching, or bleeding. Most of the time, they do not cause serious problems. They usually get better with diet changes, lifestyle changes, and other home treatments. What are the causes? This condition may be caused by: ??? Having trouble pooping (constipation). ??? Pushing hard (straining) to poop. ??? Watery poop (diarrhea). ??? . ??? Being very overweight (obese). ??? Sitting for long periods of time. ??? Heavy lifting or other activity that causes you to strain. ??? Anal sex. ??? Riding a bike for a long period of time. What are the signs or symptoms? Symptoms of this condition include: ??? Pain. ??? Itching or soreness in the butt. ??? Bleeding from the butt. ??? Leaking poop. ??? Swelling in the area. ??? One or more lumps around the opening of your butt. How is this diagnosed? A doctor can often diagnose this condition by looking at the affected area. The doctor may also: ??? Do an exam that involves feeling the area with a gloved hand (digital rectal exam). ??? Examine the area inside your butt using a small tube (anoscope). ??? Order blood tests. This may be done if you have lost a lot of blood. ??? Have you get a test that involves looking inside the colon using a flexible tube with a camera on the end (sigmoidoscopy or colonoscopy). How is this treated? This condition can usually be treated at home. Your doctor may tell you to change what you eat, make lifestyle changes, or try home treatments. If these do not help, procedures can be done to remove the hemorrhoids or make them smaller. These may involve: ??? Placing rubber bands at the base of the hemorrhoids to cut off their blood supply. ??? Injecting medicine into the hemorrhoids to shrink them. ??? Shining a type of light energy onto the hemorrhoids to cause them to fall off. ??? Doing surgery to remove the hemorrhoids or cut off their blood supply. Follow these instructions at home: Eating and drinking ??? Eat foods that have a lot of fiber in them. These include whole grains, beans, nuts, fruits, and vegetables. ??? Ask your doctor about taking products that have added fiber (fibersupplements). ??? Reduce the amount of fat in your diet. You can do this by: ? Eating low-fat dairy products. ? Eating less red meat. ? Avoiding processed foods. ??? Drink enough fluid to keep your pee (urine) pale yellow. Managing pain and swelling ??? Take a warm-water bath (sitz bath) for 20 minutes to ease pain. Do this 3?4 times a day. You may do this in a bathtub or using a portable sitz bath that fits over the toilet. ??? If told, put ice on the painful area. It may be helpful to use ice between your warm baths. ? Put ice in a plastic bag. ? Place a towel between your skin and the bag. ? Leave the ice on for 20 minutes, 2?3 times a day. General instructions ??? Take fclg-idr-tmnkqty and prescription medicines only as told by your doctor. ? Medicated creams and medicines may be used as told. ??? Exercise often. Ask your doctor how much and what kind of exercise is best for you. ??? Go to the bathroom when you have the urge to poop. Do not wait. ??? Avoid pushing too hard when you poop. ??? Keep your butt dry and clean. Use wet toilet paper or moist towelettes after pooping. ??? Do not sit on the toilet for a long time. ??? Keep all follow-up visits as told by your doctor. This is important. Contact a doctor if you: ??? Have pain and swelling that do not get better with treatment or medicine. ??? Have trouble pooping. ??? Cannot poop. ??? Have pain or swelling outside the area of the hemorrhoids. Get help right away if you have: ??? Bleeding that will not stop. Summary ??? Hemorrhoids are swollen veins in the butt or around the opening of the butt. ??? They can cause pain, itching, or bleeding. ??? Eat foods that have a lot of fiber in them. These include whole grains, beans, nuts, fruits, and vegetables. ??? Take a warm-water bath (sitz bath) for 20 minutes to ease pain. Do this 3?4 times a day. This information is not intended to replace advice given to you by your health care provider. Make sure you discuss any questions you have with your health care provider. Document Released: 07/30/2009 Document Revised: 10/29/2019 Document Reviewed: 03/12/2019 [employer] Patient Education ? 2020 [employer] Instructions for after EGD with Dilation 1. Try sips of water first. If tolerated, resume your regular diet or one recommended by your physician. 2. Do not drive, operate machinery, make critical decisions, drink alcoholic beverages, or do activities that require coordination or balance for 24 hours. 3. You may experience a sore throat for 24 to 48 hours. You may use throat lozenges or gargle with warm salt water to relieve the discomfort. 4. Because air was put into your stomach during the procedure, you may experience some belching. 5. Go directly to the emergency room if you notice any of the following: Chills and/or fever over 101 Persistent vomiting or vomiting with blood/nasal regurgitation Severe abdominal pain, other than gas cramps Severe chest pain Black, tarry stools Please see Discharge paperwork for additional instructions from your physician. If you have any questions on the above instructions, call the GI Lab and ask for an endoscopy nurse. Saturday-Saturday 7:00 am to 3:00 pm at [facility] Care After Read the instructions outlined below and refer to this sheet over the next few days. These discharge instructions provide you with general information on caring for yourself after you leave the hospital. Your doctor may also give you specific instructions. While your treatment has been planned according to the most current medical practices available, unavoidable complications occasionally occur. If you have any problems or questions after discharge, call your doctor. HOME CARE INSTRUCTIONS: ACTIVITY: ?? You may resume your regular activity tomorrow, but move at a slower pace for the next 24 hours. ?? Take frequent rest periods for the next 24 hours. ?? Walking will help get rid of the air and reduce the bloated feeling in your belly (abdomen). ?? No driving for 24 hours because of the medication (sedation) used during the test. ?? You may shower. ?? Do not sign any important legal documents or operate any machinery for 24 hours (because of the sedation used during the test). NUTRITION: ?? Drink plenty of fluids. ?? You may resume your normal diet or as instructed by your doctor ?? Begin with a light meal and progress to your normal diet. Heavy or fried foods are harder to digest and may make you feel sick to your stomach (nauseated). ?? Avoid alcoholic beverages for 24 hours or as instructed. MEDICATIONS: ?? You may resume your normal medications unless your doctor tells you otherwise. WHAT TO EXPECT TODAY: ?? Some feelings of bloating in the abdomen. ?? Excessive burping today and passage of more gas than usual. ?? A sore throat can be normal. Use throat lozenges or gargle with warm salt water and drink plenty of fluids. FINDING OUT THE RESULTS OF YOUR TEST: ?? Not all test results are available during your visit. If you had biopsies or other tests done during your procedure, you can make an appointment with your doctor to get the results. Sometimes you may be instructed to call the doctor's office for your results. It is important for you to follow up on all of your test results. SEEK IMMEDIATE MEDICAL CARE IF: ?? You cannot eat or drink. ?? You have worsening throat or chest pain. ?? You have dizziness, lightheadedness, or you faint. ?? You have severe nausea or vomiting. ?? You have a fever greater than 101. ?? You have chills. ?? You have severe abdominal pain or discomfort that gets worse throughout the day. ?? You have black, tarry, or bloody stools. COLONOSCOPY CARE AFTER Read the instructions outlined below and refer to this sheet over the next few days. These discharge instructions provide you with general information on caring for yourself after you leave the hospital. Your doctor may also give you specific instructions. While your treatment has been planned according to the most current medical practices available, unavoidable complications occasionally occur. If you have any problems or questions after discharge, call your doctor. HOME CARE INSTRUCTIONS ACTIVITY: ?? You may resume your regular activity tomorrow, but move at a slower pace for the next 24 hours. ?? Take frequent rest periods for the next 24 hours. ?? Walking will help get rid of the air and reduce the bloated feeling in your belly (abdomen). ?? No driving for 24 hours because of the medication (sedation) used during the test. ?? You may shower. ?? Do not sign any important legal documents or operate any machinery for 24 hours (because of the sedation used during the test). NUTRITION: ?? Drink plenty of fluids. ?? You may resume your normal diet or as instructed by your doctor. ?? Begin with a light meal and progress to your normal diet. Heavy or fried foods are harder to digest and may make you feel sick to your stomach (nauseated). ?? Avoid alcoholic beverages for 24 hours or as instructed. MEDICATIONS: ?? You may resume your normal medications unless your doctor tells you otherwise. WHAT TO EXPECT TODAY: ?? Some feelings of bloating in the abdomen. ?? Passage of more gas than usual. ?? Spotting of blood in your stool or on the toilet paper. ?? No bowel movements for 1-3 days due to colon prep. IF YOU HAD POLYPS REMOVED DURING THE COLONOSCOPY: ?? Avoid aspirin and NSAIDS until . FINDING OUT THE RESULTS OF YOUR TEST: ?? Not all test results are available during your visit. If you had biopsies or other tests done during your procedure, you can make an appointment with your doctor to get the results. Sometimes you may be instructed to call the doctor's office for your results. It is important for you to follow up on all of your test results. SEEK MEDICAL HELP IF: ?? You have more than a spotting of blood in your stool. ?? Your belly is swollen (abdominal distension). ?? You are nauseated and vomiting and it does not improve. ?? You have a fever greater than 101 degrees. ?? You have severe abdominal pain or discomfort that gets worse throughout the day. General Anesthesia, Adult, Care After This sheet gives you information about how to care for yourself after your procedure. Your health care provider may also give you more specific instructions. If you have problems or questions, contact your health care provider. What can I expect after the procedure? After the procedure, the following side effects are common: ??? Pain or discomfort at the IV site. ??? Nausea. ??? Vomiting. ??? Sore throat. ??? Trouble concentrating. ??? Feeling cold or chills. ??? Weak or tired. ??? Sleepiness and fatigue. ??? Soreness and body aches. These side effects can affect parts of the body that were not involved in surgery. Follow these instructions at home: For at least 24 hours after the procedure: ??? Have a responsible adult stay with you. It is important to have someone help care for you until you are awake and alert. ??? Rest as needed. ??? Do not: ? Participate in activities in which you could fall or become injured. ? Drive. ? Use heavy machinery. ? Drink alcohol. ? Take sleeping pills or medicines that cause drowsiness. ? Make important decisions or sign legal documents. ? Take care of children on your own. Eating and drinking ??? Follow any instructions from your health care provider about eating or drinking restrictions. ??? When you feel hungry, start by eating small amounts of foods that are soft and easy to digest (bland), such as toast. Gradually return to your regular diet. ??? Drink enough fluid to keep your urine pale yellow. ??? If you vomit, rehydrate by drinking water, juice, or clear broth. General instructions ??? If you have sleep apnea, surgery and certain medicines can increase your risk for breathing problems. Follow instructions from your health care provider about wearing your sleep device: ? Anytime you are sleeping, including during daytime naps. ? While taking prescription pain medicines, sleeping medicines, or medicines that make you drowsy. ??? Return to your normal activities as told by your health care provider. Ask your health care provider what activities are safe for you. ??? Take uzfx-ney-yatysvh and prescription medicines only as told by your health care provider. ??? If you smoke, do not smoke without supervision. ??? Keep all follow-up visits as told by your health care provider. This is important. Contact a health care provider if: ??? You have nausea or vomiting that does not get better with medicine. ??? You cannot eat or drink without vomiting. ??? You have pain that does not get better with medicine. ??? You are unable to pass urine. ??? You develop a skin rash. ??? You have a fever. ??? You have redness around your IV site that gets worse. Get help right away if: ??? You have difficulty breathing. ??? You have chest pain. ??? You have blood in your urine or stool, or you vomit blood. Summary ??? After the procedure, it is common to have a sore throat or nausea. It is also common to feel tired. ??? Have a responsible adult stay with you for the first 24 hours after general anesthesia. It is important to have someone help care for you until you are awake and alert. ??? When you feel hungry, start by eating small amounts of foods that are soft and easy to digest (bland), such as toast. Gradually return to your regular diet. ??? Drink enough fluid to keep your urine pale yellow. ??? Return to your normal activities as told by your health care provider. Ask your health care provider what activities are safe for you. This information is not intended to replace advice given to you by your health care provider. Make sure you discuss any questions you have with your health care provider. Document Released: 01/27/2002 Document Revised: 10/24/2018 Document Reviewed: 06/06/2018 [employer] Patient Education ? 2020 [employer]. documented in this encounter Plan of Treatment Not on file documented as of this encounter Visit Diagnoses Not on filedocumented in this encounter
--- OUTSIDE RECORDS SUMMARY | 2025-06-11 10:11 | XMS_ITS | Encounter Summary ---
Author Organization [employer] ([place], [place], [place], [place]) Address [address] [place] [address] Care Team Providers Care Roof Fixer Name Role Phone Unavailable Primary Care Provider Unavailabl e Encounter Details Date Type Department Care Team (Late st Contact Info) Description 09/17/2019 Transcribed Document [facility] [place] Family [place] [facility] [place] [address] ProviderDarrell MD [address] [place] [id number] Social History Tobacco Use Types Packs/Day Years Used Date Smoking Tobacco: Never Assessed Comments Unknown Sex and Gender Information Value Date Recorded Sex Assigned at Not on file Legal Sex Female 6:16 PM CDT Gender Identity Not on file Sexual Orientation Not on file documented as of this encounter Miscellaneous Notes * [employer] Conversion Note - Historical ProviderMD - 09/17/2019 1:43 PM INTERMEDIATE DESIGNER DATE OF ADMISSION: 09/17/2019 HISTORY: This is a 54-year-old female with a chief complaint of chronic neck pain for several years' duration, came today for followup. The patient mentioned that her neck pain has been fairly well controlled with different interventional treatments. However, she has more recently of the right knee pain without any specific injury. She thinks that the arthritis started getting so much of the right knee pain and she has sometimes a really hard time in walking and she is always walking slow because of that. The patient is currently on hydrocodone 7.5/325, take it three times a day and that has given her some help and relief. She denied any major side effects to her medication, which include toxic effects, sedation, driving problem, or GI problem. Her last urine drug screen was appropriate for taking her medication. REVIEW OF SYSTEMS: Not changed from her last visit August 17, 2019, except musculoskeletal. The patient has more of the knee pain. PHYSICAL EXAMINATION: VITAL SIGNS: Blood pressure is 115/59, heart rate is 99, respirations 16, saturation is 100%, temperature 97.2. Pain level is 4/10. Hours of sleep is 9. Examination of the right knee: On inspection of the right knee, the knee showed no swelling, deformity, or discoloration. Mild palpation revealed no allodynia or paresthesia. Deep palpation revealed mild tenderness on the knee area. Movement of the knee is mildly limited to all directions. No change in physical and neurological exam. [...] disk disease to the cervical spine. 2. Cervical radiculopathy. 3. Cervical spondylosis. 4. Failed neck surgery. 5. Long-term opioid use, on hydrocodone. 6. Multiple myofascial pain. 7. History of insomnia. 8. The patient has some symptoms correlated with knee pain secondary to osteoarthritis. PLAN: 1. We are going to continue with hydrocodone 7.5/325 take three times a day. 2. Lyrica 100 mg three times a day. 3. Robaxin 750 mg three times a day. 4. Movantik 25 mg once a day. 5. The patient has been fairly well controlled [...] to mix with alcohol, or self-escalate it. 6. In regard to her knee pain, I am going to send the patient for x-ray to the right knee to rule out any major bone injury and then I am going to schedule her for right knee injection with cortisone to help her more with her pain. 7. I am going to see the patient after 1 to 2 weeks to re-evaluate her. /[id number] Pepe Krishna MD, [facility] Pain Certified EN/MIRIAN / EN / MODL CC: Janes Mason M.D. Electronically signed by [employer], [facility] Conversion Hot Patcher Cerner at 02/18/2023 5:03 PM CDT documented in this encounter Plan of Treatment Not on file documented as of this encounter Visit Diagnoses Not on filedocumented in this encounter
--- OUTSIDE RECORDS SUMMARY | 2025-06-11 10:11 | XMS_ITS | Patient Health Record ---
Author Organization [facility] Address [address] [place] [address] Care Team Providers Care Motor Carrier Inspector Name Role Phone Ilan Caballero [phone] Allergies Allergen (clinical drug ingredient) Drug/Non Drug [...] TAKE ONE TABLET 30-45 MINS PRIOR TO PROCEDURE; Duration: 1 days 10/18/2021 Active Symbicort 80-4.5 MCG/ACT [...] Problem Status W/U Status Risk Notes Problem Cervical spondylosis without myelopathy (534018612) Cervical spondylosis without myelopathy (M47.812) Active confirmed Problem Cervical post-laminectom y syndrome (977314117) Cervical post-laminectomy syndrome (M96.1) Active confirmed Problem Cervical spondylosis with radiculopathy (M47.22) Active confirmed Plan Of Treatment No Information Insurance Providers Payer Name Payer Address Payer Phone Subscriber Number Group Number Insured Name Patient Relationship to Insured Coverage Start Date Coverage End Date [employer] [address] [place] [address] [id number] Darshana Barr Self - patient is the insured Medicare CGS Administrators [address] [place] [address] [id number] Darshana Barr Self - patient is the insured 0 [employer] [address] [place] [address] [id number] Darshana Barr Self - patient is the insured 0 Medical (General) History Medical History History ICD Code ALLERGIES ARTHRITIS ASTHMA DEPRESSION/ANXIETY EMPHYSEMA/COPD HIGH CHOLESTEROL THYROID DISEASE Surgical History Surgery Date(Month/Year) GALLBLADDER/APPENDIX 1990 TOTAL HYSTERECTOMY 2010 CERVICAL SURGERY C5-7 2017 [facility] ABORTED DUE TO SCAR TISSUE 2017 Hospitalization History Reason Date(Month/Year) DOUBLE PNEUMONIA 2017 [facility] 10/2020
--- OUTSIDE RECORDS SUMMARY | 2025-06-11 10:11 | XMS_ITS | Encounter Summary ---
Author Organization [employer] ([place], [place], [place], [place]) Address [address] [place] [address] Care Team Providers Care Sheet Metal Production Worker Name Role Phone Unavailable Primary Care Provider Unavailabl e Encounter Details Date Type Department Care Team (Late st Contact Info) Description 11/24/2018 Transcribed Document [facility] [place] [facility] [place] [address] ProviderDarrell MD [address] [place] [id number] Social History Tobacco Use Types Packs/Day Years Used Date Smoking Tobacco: Never Assessed Comments Unknown Sex and Gender Information Value Date Recorded Sex Assigned at Not on file Legal Sex Female 6:16 PM CDT Gender Identity Not on file Sexual Orientation Not on file documented as of this encounter Miscellaneous Notes * Cerner Conversion Note - Historical MD Mark - 11/24/2018 3:56 PM RESIDENTIAL ASSISTANT DATE OF ADMISSION: 11/24/2018 HISTORY OF PRESENT ILLNESS: This is a 53-year-old female with a chief complaint of chronic neck pain for several years' duration. The patient presents today for a followup visit along with medication management. The patient is complaining today of pain in her neck. She states that she does not have any arm pain or headaches. She states that she is having problems though turning her head from side to side. The patient states that it is an aching and tightness feeling. She is trying to use cold and home exercise to try to help alleviate her pain. She states at times that does provide her with some relief. Of note, the patient was previously diagnosed with bronchitis and states that she has finally gotten over that. She was given a Medrol Dosepak and an intramuscular injection of steroids. She was also given a prescription for Keflex, which of course she has finished that too. The patient states that she has been screened for osteoporosis and states that she does have it. The patient does continue to take [place] 7.5/325 mg 2-3 times a day as needed for pain. She states that does provide her with good relief when she takes it. The patient also continues to take Robaxin 750 mg 3 times a day as needed for muscle spasms. She states that when she takes it consistently, she knows that it works better for her muscle spasms. The patient denies any side effects with her medications to include excess sedation, driving problems, GI problems. The patient's BLAKE was reviewed and found to be appropriate at today's office visit. The patient has been compliant with her urine drug screening. Also, the patient is taking Lyrica 100 mg 3 times a day. She states this also does provide her with good relief when she takes it and denies any side effects with that medication. Of note, the patient did sign a new controlled substances contract with this clinic today. All questions were answered and the patient verbalized understanding. REVIEW OF SYSTEMS: Constitutional, Respiratory, Cardiovascular, Ophthalmology, Gastrointestinal, Genitourinary, ENT, Musculoskeletal, Integumentary, Neurology, Psychiatry, Endocrine, Hematology were unchanged from 10/30/2018. PHYSICAL EXAMINATION: VITAL SIGNS: Blood pressure 117/57, weight 217 pounds, height 5 feet 4 inches, heart rate 101, respiratory rate 16, O2 saturation 98% on room air, temperature 98. Hours of sleep 7. Pain 3/10. No change in physical and neurological exam. Muscle tone power sensory and deep tendon reflexes were unchanged. The nurse notes, vital signs, and medication were reviewed and evaluated. No sign of impairment or toxicity to medicine. The patient psych evaluation, urine drug screen, and BLAKE were appropriate for taking opioid medication. The patient did complete the COMM psychological evaluation in the clinic today. Her score was 8, indicating high risk to continue any controlled substances. This was discussed with the patient. She feels like a lot of her answers were secondary to her being sick and need to get to the emergency room secondary to her bronchitis and her having COPD. ASSESSMENT: 1. Chronic neck pain secondary to degenerative joint disease and degenerative disk disease of the cervical spine. 2. Failed neck surgery. The patient is status post cervical fusion from C5 through C7. 3. Cervical radiculopathy. 4. Cervical spondylosis. PLAN: 1. Refill Walston 7.5/325 mg 2-3 times a day as needed for pain. 2. Refill Lyrica 100 mg 3 times a day. 3. The patient is going to follow up in one month for re-evaluation and medication management. 4. Continue Robaxin 750 mg 3 times a day as needed for muscle spasms, has refills. 5. I have encouraged the patient to continue doing her home exercises to include walking, stretching, range of motion exercises. 6. The patient has been fairly well controlled on current medication. The patient has a good compliance with Pain Clinic regulation in regard urine drug screen BLAKE Psych evaluation. We spent more than half of the time discussing the risks, benefits of the medication, how to keep it in safe place, not to share with other people, not to mix with alcohol, or self-escalate it. 7. The assessment and plan for today's visit was reviewed by Dr. Krishna. However, I did prescribe all medications to include scheduled medications for this patient's treatment plan. Dictated By: Lula Denny APRN For Pepe Krishna M.D., BLAKE Pain Certified Pepe Krishna M.D., BLAKE Pain Certified Dict: 11/24/2018 15:56:40 Trans: 11/24/2018 17:41:33 CC1: Pepe Krishna M.D., BLAKE Pain Certified CC2: Dr. Janes Mason Electronically signed by [facility] Conversion Icu Staff Nurse Cerner at 02/18/2023 4:59 PM CDT documented in this encounter Plan of Treatment Not on file documented as of this encounter Visit Diagnoses Not on filedocumented in this encounter
--- OUTSIDE RECORDS SUMMARY | 2025-06-11 10:11 | XMS_ITS | Encounter Summary ---
Author Organization [employer] ([place], [place], [place], [place]) Address [address] [place] [address] Care Team Providers Care Plant Specialist Name Role Phone Unavailable Primary Care Provider Unavailabl e Encounter Details Date Type Department Care Team (Late st Contact Info) Description 10/17/2020 Transcribed Document [facility] [place] [facility] [place] [address] ProviderDarrell MD [address] [place], [place] [id number] Social History Tobacco Use Types Packs/Day Years Used Date Smoking Tobacco: Never Assessed Comments Unknown Sex and Gender Information Value Date Recorded Sex Assigned at Not on file Legal Sex Female 6:16 PM CDT Gender Identity Not on file Sexual Orientation Not on file documented as of this encounter Miscellaneous Notes * Cerner Conversion Note - Historical ProviderMD - 10/17/2020 8:38 PM DRAFTER GEOPHYSICAL ED Event Note Entered On: 10/17/2020 20:40 EST Performed On: 10/17/2020 20:38 EST by Jeannette Fuller COMBINATION WORKER Event Note ED Event Date/Time : 10/17/2020 20:15 EST ED Description of Event : called to lobby for pt request; pt and visitor reports need for neb tx secondary to doctor orders for neb tx every 4-6 hrs for my pneumonia advised pt and visitor that as soon as we can accomadate providing neb tx we would and your oxygen level is 99% RAJeannette Tan, RN - 10/17/2020 20:38 EST documented in this encounter Plan of Treatment Not on file documented as of this encounter Visit Diagnoses Not on filedocumented in this encounter
--- OUTSIDE RECORDS SUMMARY | 2025-06-11 10:11 | XMS_ITS | Encounter Summary ---
Author Organization [employer] ([place], [place], [place], [place]) Address [address] [place] [address] Care Team Providers Care Behaviour Support Teacher Name Role Phone Unavailable Primary Care Provider Unavailabl e Encounter Details Date Type Department Care Team (Late st Contact Info) Description 10/17/2020 Transcribed Document [facility] [place] [facility] [place] [address] ProviderDarrell MD [address] [place] [address] Social History Tobacco Use Types Packs/Day Years Used Date Smoking Tobacco: Never Assessed Comments Unknown Sex and Gender Information Value Date Recorded Sex Assigned at Not on file Legal Sex Female 6:16 PM CDT Gender Identity Not on file Sexual Orientation Not on file documented as of this encounter Miscellaneous Notes * Cerner Conversion Note - Historical ProviderMD - 10/17/2020 4:38 PM SHIPFITTERS SUPERVISOR Broset Violence Assessment Entered On: 10/17/2020 22:43 EST Performed On: 10/17/2020 22:40 EST by Jeannette Fuller RN Broset Violence Assessment Broset Violence Checklist of Symptoms : Irritable, Boisterous Broset Violence Symptoms Subtotal : 2 Broset Violence Symptoms Indicator : Moderate risk (1-2) Jeannette Fuller RN - 10/17/2020 22:40 EST documented in this encounter Plan of Treatment Not on file documented as of this encounter Visit Diagnoses Not on filedocumented in this encounter
--- OUTSIDE RECORDS SUMMARY | 2025-06-11 10:11 | XMS_ITS | Encounter Summary ---
Author Organization [employer] ([place], [place], [place], [place]) Address [address] [place] [address] Care Team Providers Care Woodwind Reeds Cutter Name Role Phone Unavailable Primary Care Provider Unavailabl e Encounter Details Date Type Department Care Team (Late st Contact Info) Description 10/17/2020 Transcribed Document [facility] [facility] [place] [address] ProviderDarrell MD [address] [place] [id number] Social History Tobacco Use Types Packs/Day Years Used Date Smoking Tobacco: Never Assessed Comments Unknown Sex and Gender Information Value Date Recorded Sex Assigned at Not on file Legal Sex Female 6:16 PM CDT Gender Identity Not on file Sexual Orientation Not on file documented as of this encounter Miscellaneous Notes * Cerner Conversion Note - Historical ProviderMD - 10/17/2020 4:38 PM HIGH SCHOOL 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 Saw Gillian Alicia @ Dr. Cheek's office 10/13, had elevated WBCs. Temp today 98.6 - states baseline is 97.1 and she was advised to come to ED. Triage Date/Time : 10/17/2020 17:31 EST Calli Cruz RN - 10/17/2020 17:31 EST DCP GENERIC CODE Tracking Acuity : 3 - Urgent Tracking Group : [facility] ED Calli Cruz RN - 10/17/2020 17:31 EST Mode of Arrival : Ambulatory Transported to ED by : Private vehicle To Room Via : Wheelchair Accompanied By : Unaccompanied ED Vital Signs : Document Height & Weight : Document ED Allergies : Document ED Reason for Visit : Document Tetanus Immunization : Less than 5 years Calli Cruz RN - 10/17/2020 17:31 EST Infectious Disease History Has the patient ever been tested for COVID-19? : Yes, Patient stated results Negative Date of COVID-19 test known? : No Does patient have symptoms of COVID-19? : Yes COVID19 Screening : No Experiencing Infectious Disease Symptoms : Difficulty breathing Physical contact outside [place] in the last 30 days : No Infectious Disease History : Chicken pox/Shingles, Measles Tuberculosis Symptoms : None Calli Cruz RN - 10/17/2020 17:31 EST Vital Signs ED Temperature Source : Temporal artery scanning Temperature Mode : Fahrenheit Temperature, Fahrenheit : 97.4 Deg F ED Pain : No Clinical Temperature, C : 36.3 Deg C Oxygen Therapy Mode : Room air Peripheral Pulse Rate : 100 bpm Respiratory Rate : 16 Breaths/Min Systolic Blood Pressure : 121 mmHg Diastolic Blood Pressure : 64 mmHg Oxygen Saturation : 97 % Calli Crzu RN - 10/17/2020 17:31 EST Allergy (As Of: 10/17/2020 17:34:28 EST) Allergies (Active) penicillin Estimated Onset Date: Unspecified ; Reactions: Unknown ; Created By: JOSÉ MIGUEL BRADSHAW RN; Reaction Status: Active ; Category: Drug ; Substance: penicillin ; Type: Allergy ; Updated By: JOSÉ MIGUEL BRADSHAW RN; Reviewed Date: 06/20/2018 13:22 EDT Tylenol with Codeine Estimated Onset Date: Unspecified ; Reactions: Nausea, Vomiting, Chest pain ; Created By: JOSÉ MIGUEL BRADSHAW RN; Reaction Status: Active ; Category: Drug ; Substance: Tylenol with Codeine ; Type: Allergy ; Updated By: JOSÉ MIGUEL BRADSHAW RN; Reviewed Date: 06/20/2018 13:22 EDT Diagnosis Control ED (As Of: 10/17/2020 17:34:28 EST) Problems(Active) Anxiety (SNOMED CT :9968085856 ) Name of Problem: Anxiety ; Recorder: Tracey Mathews RN; Confirmation: Confirmed ; Classification: Medical ; Code: [id number] ; Contributor System: JEDI MIND ; Last Updated: 11/06/2016 11:42 EST ; Life Cycle Date: 11/06/2016 ; Life Cycle Status: Active ; Vocabulary: SNOMED CT Arthritis (SNOMED CT :6408930 ) Name of Problem: Arthritis ; Recorder: JOSÉ MIGUEL BRADSHAW RN; Confirmation: Confirmed ; Classification: Medical ; Code: [id number] ; Contributor System: KymetaChart ; Last Updated: 09/23/2018 15:39 EST ; Life Cycle Date: 06/18/2018 ; Life Cycle Status: Active ; Vocabulary: SNOMED CT Asthma (SNOMED CT :241896733 ) Name of Problem: Asthma ; Recorder: Tracey Mathews RN; Confirmation: Confirmed ; Classification: Medical ; Code: 926978340 ; Contributor System: PowerChart ; Last Updated: 11/06/2016 11:28 EST ; Life Cycle Date: 11/06/2016 ; Life Cycle Status: Active ; Vocabulary: SNOMED CT Asthma (SNOMED CT :370488813 ) Name of Problem: Asthma ; Recorder: JOSÉ MIGUEL BRADSHAW RN; Confirmation: Confirmed ; Classification: Medical ; Code: 349458625 ; Contributor System: PowerChart ; Last Updated: 06/18/2018 15:03 EDT ; Life Cycle Date: 06/18/2018 ; Life Cycle Status: Active ; Vocabulary: SNOMED CT Cardiomyopathy (SNOMED CT :402543724 ) Name of Problem: Cardiomyopathy ; Recorder: Malgorzata Pemberton RN; Confirmation: Confirmed ; Classification: Medical ; Code: 146095281 ; Contributor System: KymetaChart ; Last Updated: 11/07/2016 6:38 EST ; Life Cycle Date: 11/07/2016 ; Life Cycle Status: Active ; Vocabulary: SNOMED CT DDD (degenerative disc disease), cervical (SNOMED CT :740190899 ) Name of Problem: DDD (degenerative disc disease), cervical ; Recorder: Tracey Mathews RN; Confirmation: Confirmed ; Classification: Medical ; Code: 659481824 ; Contributor System: PowerChart ; Last Updated: 11/06/2016 11:41 EST ; Life Cycle Date: 11/06/2016 ; Life Cycle Status: Active ; Vocabulary: SNOMED CT Endometriosis (SNOMED CT :8385745702 ) Name of Problem: Endometriosis ; Recorder: Tracey Mathews RN; Confirmation: Confirmed ; Classification: Medical ; Code: 2685917903 ; Contributor System: PowerChart ; Last Updated: 11/06/2016 11:30 EST ; Life Cycle Date: 11/06/2016 ; Life Cycle Status: Active ; Vocabulary: SNOMED CT Fibroids (SNOMED CT :801067849 ) Name of Problem: Fibroids ; Recorder: Tracey Mathews RN; Confirmation: Confirmed ; Classification: Medical ; Code: 744493271 ; Contributor System: PowerChart ; Last Updated: 11/06/2016 11:30 EST ; Life Cycle Date: 11/06/2016 ; Life Cycle Status: Active ; Vocabulary: SNOMED CT GERD - Gastro-esophageal reflux disease (SNOMED CT :4695610605 ) Name of Problem: GERD - Gastro-esophageal reflux disease ; Recorder: Tracey Mathews RN; Confirmation: Confirmed ; Classification: Medical ; Code: 6208397945 ; Contributor System: PowerChart ; Last Updated: 11/06/2016 11:29 EST ; Life Cycle Date: 11/06/2016 ; Life Cycle Status: Active ; Vocabulary: SNOMED CT H/O: depression (SNOMED CT :933979383 ) Name of Problem: H/O: depression ; Recorder: JOSÉ MIGUEL BRADSHAW RN; Confirmation: Confirmed ; Classification: Medical ; Code: 303032101 ; Contributor System: PowerChart ; Last Updated: 06/18/2018 15:07 EDT ; Life Cycle Date: 06/18/2018 ; Life Cycle Status: Active ; Vocabulary: SNOMED CT History of obstructive sleep apnea (IMO :24915069 ) Name of Problem: History of obstructive sleep apnea ; Recorder: SYSTEM, SYSTEM; Confirmation: Confirmed ; Classification: Medical ; Code: 43653760 ; Last Updated: 06/18/2018 15:16 EDT ; Life Cycle Date: 06/18/2018 ; Life Cycle Status: Active ; Vocabulary: IMO Left carpal tunnel syndrome (SNOMED CT :7149172487 ) Name of Problem: Left carpal tunnel syndrome ; Recorder: Tracey Mathews RN; Confirmation: Confirmed ; Classification: Medical ; Code: 0793102131 ; Contributor System: PowerChart ; Last Updated: 11/06/2016 11:43 EST ; Life Cycle Date: 11/06/2016 ; Life Cycle Status: Active ; Vocabulary: SNOMED CT Migraine (SNOMED CT :62376218 ) Name of Problem: Migraine ; Recorder: Tracey Mathews RN; Confirmation: Confirmed ; Classification: Medical ; Code: 18919955 ; Contributor System: PowerChart ; Last Updated: 11/06/2016 11:30 EST ; Life Cycle Date: 11/06/2016 ; Life Cycle Status: Active ; Vocabulary: SNOMED CT Neck pain (SNOMED CT :1448471245 ) Name of Problem: Neck pain ; Recorder: Tracey Mathews RN; Confirmation: Confirmed ; Classification: Medical ; Code: 0787869789 ; Contributor System: PowerChart ; Last Updated: 11/06/2016 11:41 EST ; Life Cycle Date: 11/06/2016 ; Life Cycle Status: Active ; Vocabulary: SNOMED CT PCO - Polycystic ovaries (SNOMED CT :614129607 ) Name of Problem: PCO - Polycystic ovaries ; Recorder: Tracey Mathews RN; Confirmation: Confirmed ; Classification: Medical ; Code: 629787838 ; Contributor System: PowerChart ; Last Updated: 11/06/2016 11:30 EST ; Life Cycle Date: 11/06/2016 ; Life Cycle Status: Active ; Vocabulary: SNOMED CT Pneumonia (SNOMED CT :831991507 ) Name of Problem: Pneumonia ; Recorder: Tracey Mathews RN; Confirmation: Confirmed ; Classification: Medical ; Code: 878744393 ; Contributor System: PowerChart ; Last Updated: 11/06/2016 11:28 EST ; Life Cycle Date: 11/06/2016 ; Life Cycle Status: Active ; Vocabulary: SNOMED CT Sleep apnea (SNOMED CT :775404153 ) Name of Problem: Sleep apnea ; Recorder: JOSÉ MIGUEL BRADSHAW RN; Confirmation: Confirmed ; Classification: Medical ; Code: 696479308 ; Contributor System: PowerChart ; Last Updated: 06/18/2018 15:03 EDT ; Life Cycle Date: 06/18/2018 ; Life Cycle Status: Active ; Vocabulary: SNOMED CT Spinal stenosis of cervical region (SNOMED CT :881501579 ) Name of Problem: Spinal stenosis of cervical region ; Recorder: Tracey Mathews RN; Confirmation: Confirmed ; Classification: Medical ; Code: 871605685 ; Contributor System: PowerChart ; Last Updated: 11/06/2016 11:43 EST ; Life Cycle Date: 11/06/2016 ; Life Cycle Status: Active ; Vocabulary: SNOMED CT Wears glasses (SNOMED CT :014296021 ) Name of Problem: Wears glasses ; Recorder: JOSÉ MIGUEL BRADSHAW RN; Confirmation: Confirmed ; Classification: Medical ; Code: 418132704 ; Contributor System: JEDI MIND ; Last Updated: 06/18/2018 15:01 EDT ; Life Cycle Date: 06/18/2018 ; Life Cycle Status: Active ; Vocabulary: SNOMED CT Diagnoses(Active) Abnormal laboratory findings Date: 10/17/2020 ; Diagnosis Type: Reason For Visit ; Confirmation: Complaint of ; Clinical Dx: Abnormal laboratory findings ; Classification: Medical ; Clinical Service: Non-Specified ; Code: PNED ; Probability: 0 ; Diagnosis Code: [id number] Shortness of breath Date: 10/17/2020 ; Diagnosis Type: Reason For Visit ; Confirmation: Complaint of ; Clinical Dx: Shortness of breath ; Classification: Medical ; Clinical Service: Non-Specified ; Code: PNED ; Probability: 0 ; Diagnosis Code: [id number] ED Height and Weight Height Source : Stated Height Entry Format : [place] Height, Feet : 5 ft(Converted to: 152 cm, 60 Inch) Height, Inches : 4 Inch(Converted to: 0 ft 4 Inch, 10.16 cm) Clinical Height : 162.56 cm Weight Source, ED : Critical estimated dosing weight Weight Entry Format : [place] Weight, Pounds : 250 lb Clinical Dosing Weight : 113.64 kg Body Surface Area (BSA) : 2.15 m2 Body Mass Index : 43 kg/m2 (>HHI) [place] Body Weight (IBW) : 54.3 kg Calli Cruz RN - 10/17/2020 17:31 EST documented in this encounter Plan of Treatment Not on file documented as of this encounter Visit Diagnoses Not on filedocumented in this encounter
--- OUTSIDE RECORDS SUMMARY | 2025-06-11 10:11 | XMS_ITS | Encounter Summary ---
Author Organization [employer] ([place], [place], [place], [place]) Address [address] [place] [address] Care Team Providers Care Filter Cleaner Name Role Phone Unavailable Primary Care Provider Unavailabl e Encounter Details Date Type Department Care Team (Late st Contact Info) Description 07/17/2019 Transcribed Document [facility] [place] [facility] [place] [address] ProviderDarrell MD [address] [place] [address] Social History Tobacco Use Types Packs/Day Years Used Date Smoking Tobacco: Never Assessed Comments Unknown Sex and Gender Information Value Date Recorded Sex Assigned at Not on file Legal Sex Female 6:16 PM CDT Gender Identity Not on file Sexual Orientation Not on file documented as of this encounter Miscellaneous Notes * Cerner Conversion Note - Historical ProviderMD - 07/17/2019 1:12 PM CDT DATE OF ADMISSION: 07/17/2019 HISTORY OF PRESENT ILLNESS: This is a 54-year-old female with a chief complaint of chronic neck pain that radiates to the left upper extremity for several years' duration, who is here today for a followup visit. The patient reports that she is having an aching sensation in her neck that radiates to the left shoulder and down to her left hand. The patient says that she does stay active, doing some yard work as well as using cold therapy and taking her Lyrica 100 mg 3 times daily and [place] 7.5/325 mg 3 times daily. The patient is also taking Robaxin 750 mg 3 times daily. The patient reports that the combination of medications does keep her fairly well functional. The patient says that she uses the medication exactly as prescribed. The patient says that she does get good help and relief from that and denies any adverse effects including toxic effects, sedation, driving problems, or GI problems. REVIEW OF SYSTEMS: Constitutional, Respiratory, Cardiovascular, Ophthalmology, Gastrointestinal, Genitourinary, ENT, Musculoskeletal, Integumentary, Neurology, Psychiatry, Endocrine, Hematology were not changed from her last visit on June 08, 2019. PHYSICAL EXAMINATION: Blood pressure 118/60, weight 212, height 64 inches, heart rate 87, respiratory rate 16, O2 sat 97%, temperature 97.7. Pain level 4. Hours of sleep 7-8. No change in physical and neurological exam. [...] 2. Cervical radiculopathy. 3. Cervical spondylosis. 4. Long-term opioid use. 5. 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 6. Long-term use of high-risk medication. 7. [...] with alcohol, or self-escalate it. 2. Continue [place] 7.5/325 mg 3 times daily as needed. 3. I have educated the patient to use non-pharmacologic measures to alleviate pain prior to using as needed opioid medication such as heat, ice, rest, relaxation, repositioning, exercise, stretches, TENS unit and/or massage. 4. Continue Lyrica 100 mg 3 times daily. 5. Continue Robaxin 750 mg 3 times daily. 6. Continue trazodone 25-50 mg at bedtime. 7. Continue Movantik 25 mg daily. 8. I have encouraged the patient to continue home exercise program that includes stretching and range of motion exercises. 9. We are going to see the patient back after one month to re-evaluate. 10. The assessment and plan for today's visit has been reviewed by Dr. Krishna, however, I have prescribed the medications for this patient's treatment plan today. Dictated By: Jazz Orta APRN For Pepe Krishna M.D., BLAKE Pain Certified Pepe Krishna M.D., BLAKE Pain Certified Dict: 07/17/2019 13:12:50 Trans: 07/17/2019 14:28:38 CC1: Pepe Krishna M.D., BLAKE Pain Certified CC2: Janes Mason MD documented in this encounter Plan of Treatment Not on file documented as of this encounter Visit Diagnoses Not on filedocumented in this encounter
--- OUTSIDE RECORDS SUMMARY | 2025-06-11 10:11 | XMS_ITS | Encounter Summary ---
Author Organization [employer] ([place], [place], [place], [place]) Address [address] [place] [address] Care Team Providers Care Mapping Technician Name Role Phone Unavailable Primary Care Provider Unavailabl e Encounter Details Date Type Department Care Team (Late st Contact Info) Description 04/14/2019 Transcribed Document [facility] [place] [facility] [place] [address] ProviderDarrell MD [address] [place] [id number] Social History Tobacco Use Types Packs/Day Years Used Date Smoking Tobacco: Never Assessed Comments Unknown Sex and Gender Information Value Date Recorded Sex Assigned at Not on file Legal Sex Female 6:16 PM CDT Gender Identity Not on file Sexual Orientation Not on file documented as of this encounter Miscellaneous Notes * Cerner Conversion Note - Historical ProviderMD - 04/14/2019 4:17 PM CDT DATE OF ADMISSION: 04/14/2019 HISTORY OF PRESENT ILLNESS: This is a 53-year-old female with chief complaint of chronic neck pain radiate to left shoulder for several years duration came today for followup. The patient mentioned that her pain level has been fairly well controlled with the combination of medication that she has taken. She is able now to accomplish so many thing at home and outside the house. She is applying some ice and cold as well as she does more stretching that is helping her with her pain. Recently, she switched from Breo to Symbicort and that gave her some help and relief with her breathing. She is currently taking hydrocodone 7.5/325, 2 to 3 times a day per mouth as well as Lyrica 100 mg 3 times a day. The patient denied any major side effect to her medication, which include toxic effect, sedation, driving problem, or GI problem. REVIEW OF SYSTEMS: Constitutional, Respiratory, Cardiovascular, Ophthalmology, Gastrointestinal, Genitourinary, ENT, Musculoskeletal, Integumentary, Neurology, Psychiatry, Endocrine, Hematology were not changed from March 16, 2019. PHYSICAL EXAMINATION: Blood pressure 128/69, heart rate is 96, respirations 16, saturation 96%, temperature 97.4, pain level 4, hours of sleep is 7. No change in physical and neurological exam. [...] the cervical spine. 2. Failed neck surgery, patient is status post cervical fusion, C5-C7. 3. Cervical radiculopathy. 4. Cervical spondylosis. [...] mix with alcohol, or self-escalate it. 2. Hydrocodone 7.5/325, 2 to 3 times a day. 3. Lyrica 100 mg 3 times a day. 4. Robaxin 750 mg 3 times a day. 5. Continue with Movantik 25 mg once daily. 6. I am going to see the patient after one month to reevaluate her. Pepe Krishna M.D., BLAKE Pain Certified Dict: 04/14/2019 16:17:10 Trans: 04/14/2019 22:53:53 CC1: Pepe Krishna M.D., BLAKE Pain Certified CC2: Dr. Janes Mason documented in this encounter Plan of Treatment Not on file documented as of this encounter Visit Diagnoses Not on filedocumented in this encounter
--- OUTSIDE RECORDS SUMMARY | 2025-06-11 10:11 | XMS_ITS | Encounter Summary ---
Author Organization [employer] ([place], [place], [place], [place]) Address [address] [place] [address] Care Team Providers Care Job Setter Honing Name Role Phone Unavailable Primary Care Provider Unavailabl e Encounter Details Date Type Department Care Team (Late st Contact Info) Description 10/17/2020 Transcribed Document [facility] [place] [facility] [place] [address] ProviderDarrell MD [address] [place] [address] Social History Tobacco Use Types Packs/Day Years Used Date Smoking Tobacco: Never Assessed Comments Unknown Sex and Gender Information Value Date Recorded Sex Assigned at Not on file Legal Sex Female 6:16 PM CDT Gender Identity Not on file Sexual Orientation Not on file documented as of this encounter Miscellaneous Notes * Cerner Conversion Note - Historical ProviderMD - 10/17/2020 8:29 PM HAM PASSER Vital Signs ED Entered On: 10/17/2020 20:29 EST Performed On: 10/17/2020 20:29 EST by Salazar Mccauley jonathan Vital Signs ED Temperature Mode : Fahrenheit Oxygen Therapy Mode : Room air Peripheral Pulse Rate : 84 bpm Respiratory Rate : 22 Breaths/Min (HI) Blood Pressure Location : Arm, right upper Blood Pressure Source : Non-Invasive BP Device Systolic Blood Pressure : 128 mmHg Diastolic Blood Pressure : 89 mmHg Oxygen Saturation : 99 % Salazar Mccauley jonathan - 10/17/2020 20:29 EST Electronically signed by [facility] Conversion Station Cashier Cerner at 02/18/2023 4:53 PM CDT documented in this encounter Plan of Treatment Not on file documented as of this encounter Visit Diagnoses Not on filedocumented in this encounter
--- OUTSIDE RECORDS SUMMARY | 2025-06-11 10:11 | XMS_ITS | Encounter Summary ---
Author Organization [employer] ([place], [place], [place], [place]) Address [address] [place] [address] Care Team Providers Care Fulfillment Associate Name Role Phone Unavailable Primary Care Provider Unavailabl e Encounter Details Date Type Department Care Team (Late st Contact Info) Description 01/06/2021 Transcribed Document [facility] [place] [facility] [place] [address] ProviderDarrell MD [address] [place] [id number] Social History Tobacco Use Types Packs/Day Years Used Date Smoking Tobacco: Never Assessed Comments Unknown Sex and Gender Information Value Date Recorded Sex Assigned at Not on file Legal Sex Female 6:16 PM CDT Gender Identity Not on file Sexual Orientation Not on file documented as of this encounter Miscellaneous Notes * Cerner Conversion Note - Historical ProviderMD - 01/06/2021 12:30 PM THERMAL SURFACING MACHINE OPERATOR [facility] [employer] PreOp Summary Primary Physician: SEA OLSON MD Finalized Date/Time: 01/06/21 12:22:57 Pt. Name: FERMIN DEVRIES/Sex: 1965 Female Med Rec #: [id number] Physician: SEA OLSON MD Financial #: [id number] Pt. Type: O Room/Bed: END/ Admit/Disch: 01/06/21 11:16:00 - Institution: [facility] PreOp Case Times Entry 1 In Preop 01/06/21 12:05:00 Ready for Holding n/a Room Patient Ready for n/a Surgery Patient Out of Preop 01/06/21 12:22:00 Patient Out of n/a Holding Room Last Modified By: Ligia Walter RN 01/06/21 12:22:55 Finalized By: Ligia Walter, RN Document Signatures Signed By: Ligia Walter RN 01/06/21 12:22 documented in this encounter Plan of Treatment Not on file documented as of this encounter Visit Diagnoses Not on filedocumented in this encounter
--- OUTSIDE RECORDS SUMMARY | 2025-06-11 10:11 | XMS_ITS | Encounter Summary ---
Author Organization [employer] ([place], [place], [place], [place]) Address [address] [place] [address] Care Team Providers Care Street Cleaning Equipment Operator Name Role Phone Unavailable Primary Care Provider Unavailabl e Encounter Details Date Type Department Care Team (Late st Contact Info) Description 10/17/2020 Transcribed Document [facility] [place] [facility] [place] [address] ProviderDarrell MD [address] [place], [place] [address] Social History Tobacco Use Types Packs/Day Years Used Date Smoking Tobacco: Never Assessed Comments Unknown Sex and Gender Information Value Date Recorded Sex Assigned at Not on file Legal Sex Female 6:16 PM CDT Gender Identity Not on file Sexual Orientation Not on file documented as of this encounter Miscellaneous Notes * Cerner Conversion Note - Historical ProviderMD - 10/17/2020 8:40 PM ASSISTANT HALL DIRECTOR ED Event Note Entered On: 10/17/2020 20:40 EST Performed On: 10/17/2020 20:40 EST by Jeannette Fuller RN ED Event Note ED Event Date/Time : 10/17/2020 20:40 EST ED Description of Event : pt pulled to Triage 2 for neb tx; additional labs and blood c/s Jeannette Fuller RN - 10/17/2020 20:40 EST documented in this encounter Plan of Treatment Not on file documented as of this encounter Visit Diagnoses Not on filedocumented in this encounter
--- OUTSIDE RECORDS SUMMARY | 2025-06-11 10:11 | XMS_ITS | Encounter Summary ---
Author Organization [employer] ([place], [place], [place], [place]) Address [address] [place] [address] Care Team Providers Care Glove Factory Sewer Name Role Phone Unavailable Primary Care Provider Unavailabl e Encounter Details Date Type Department Care Team (Late st Contact Info) Description 10/17/[address] [facility] [place] [facility] [place] [address] ProviderDarrell MD [address] [place], [place] [id number] Social History Tobacco Use Types Packs/Day Years Used Date Smoking Tobacco: Never Assessed Comments Unknown Sex and Gender Information Value Date Recorded Sex Assigned at Not on file Legal Sex Female 6:16 PM CDT Gender Identity Not on file Sexual Orientation Not on file documented as of this encounter Miscellaneous Notes * Cerner Conversion Note - Historical ProviderMD - 10/17/2020 8:05 PM MARINE ELECTRONICS REPAIRER Patient: FERMIN BARR Age: 55 Years Sex: Female : 1965 While in the ED lobby speaking to another patient's family member, this patient informed me that she needed a breathing treatment immediately. Patient was tearful however she was not tachypneic or struggling to breathe, I advised her that I would let the triage nurse know and we will administer this as soon as possible. I discussed this with the triage nurse Jeannette, I advised her that the patient was not in any respiratory distress but was visibly upset. documented in this encounter Plan of Treatment Not on file documented as of this encounter Visit Diagnoses Not on filedocumented in this encounter
--- OUTSIDE RECORDS SUMMARY | 2025-06-11 10:11 | XMS_ITS | Encounter Summary ---
Author Organization [employer] ([place], [place], [place], [place]) Address [address] [place] [address] Care Team Providers Care Engine Wiper Name Role Phone Unavailable Primary Care Provider Unavailabl e Encounter Details Date Type Department Care Team (Late st Contact Info) Description 10/04/2020 Transcribed Document [facility] [place] [facility] [place] [address] ProviderDarrell MD [address] [place] [address] Social History Tobacco Use Types Packs/Day Years Used Date Smoking Tobacco: Never Assessed Comments Unknown Sex and Gender Information Value Date Recorded Sex Assigned at Not on file Legal Sex Female 6:16 PM CDT Gender Identity Not on file Sexual Orientation Not on file documented as of this encounter Miscellaneous Notes * Cerner Conversion Note - Historical ProviderMD - 10/04/2020 4:06 PM JEWEL SUPERVISOR DATE OF ADMISSION: 10/04/2020 HISTORY OF PRESENT ILLNESS: This is a 55-year-old female with a chief complaint of chronic neck pain for several years' duration, who is seen today for a followup visit. The patient is following up today for medication management and refills. She reports that she is having worsening of her neck pain. She says it is especially bad in the morning after sleeping at night. However, she denies any difficulty sleeping. She says that she normally wakes up around 5:30 a.m. She says that when she wakes up at that time, if she is able to take her pain medication, that she is better by around 8. She says that she is having moderate neck pain and it does radiate to the left shoulder. She describes it as a pressure sensation. She says she is doing cold in addition to home exercises and stretches. The patient says that she thinks her pain may be getting worse because she has not been doing as much activity outside. She says that it is difficult getting out of bed and moving around in the mornings. She is taking diclofenac twice daily. She is also using Cymbalta and taking her Columbia 3 times daily. She says that she is also using Robaxin as needed and taking her Lyrica 3 times daily. The patient says that she really needs to have the Columbia dosage 4 times daily. She says that she takes one in the morning, one in the afternoon, one in the evening, and needs one at bedtime. She says that she would like to have that increased if possible. The patient reports that she has been taking it 4 times daily and so she has actually run out of her medications, so she would like to discuss possibly increasing that today. The patient denies any adverse effects including toxic effect, sedation, driving problems, or GI problems. REVIEW OF SYSTEMS: Constitutional, respiratory, cardiovascular, ophthalmology, gastrointestinal, genitourinary, ENT, musculoskeletal, integumentary, neurology, psychiatry, endocrine, hematology were not changed from her last visit on August 30, 2020. PHYSICAL EXAMINATION: VITAL SIGNS: Blood pressure 121/59, weight 210, height 64 inches, heart rate 92, respiratory rate 16, O2 saturation 96%, temperature 97.3. Pain level 4. Hours of sleep 8. No change in [...] 2. Cervical radiculopathy. 3. Cervical spondylosis. 4. Multiple myofascial pain and muscle spasm. 5. Long-term opioid use. 6. Long-term use of high-risk medication. 7. Insomnia. 8. Osteoarthritis in multiple sites. 9. Intermittent opioid-induced constipation. 10. Status post spinal cord stimulator trial with failure, 2018. PLAN: 1. The patient has been fairly [...] mix with alcohol, or self-escalate it. 2. I have made the patient aware that we cannot increase the hydrocodone today. We will continue that at 7.5/325 mg 3 times daily as needed, however, I have advised her with each dose to take an additional 500 mg of Tylenol. She has voiced understanding. 3. We can increase the patient's Lyrica to 100 mg 4 times daily. She can take it 4 times daily or take 2 of those twice daily to see which helps her more. 4. I have educated the patient to use non-pharmacologic measures to alleviate pain prior to using as needed opioid medication such as heat, ice, rest, relaxation, repositioning, exercise, stretches, TENS unit and/or massage. 5. I have encouraged the patient not to take the Lyrica and the Columbia at the same time but alternate those. 6. We are going to continue Cymbalta 60 mg at bedtime. 7. Continue diclofenac 75 mg twice daily. 8. Continue Robaxin 750 mg twice daily as needed. 9. I have encouraged the patient to continue her home exercises including stretching and range of motion exercises. 10. Continue compound cream 3 to 4 times daily as needed. 11. Continue Movantik 25 mg daily as needed. 12. We are going to see the patient back in 2 months to re-evaluate. The assessment and plan for today's visit [...] visit and the patient has been afebrile. /[id number] FLOYD Mullins/MIRIAN / PITA / MODL CC: REYES (REF) MD AUDIE documented in this encounter Plan of Treatment Not on file documented as of this encounter Visit Diagnoses Not on filedocumented in this encounter
--- OUTSIDE RECORDS SUMMARY | 2025-06-11 10:11 | XMS_ITS | Clinical Summary ---
Author Organization [facility] Address [address] [id number] Care Team Providers Care Gas Or Water Meter Installer Name Role Phone Janes Mason MD Primary Care Provider [phone] Allergies Active Allergy Reactions Criticality Noted Date Comments Acetaminophen GI Intolerance 12/01/2015 Acetaminophen-Codeine Unknown - Low Severity Codeine GI Intolerance 10/13/2021 Penicillins Other (See Comments) ,Unknown - Low Severity 11/13/2012 Medications pregabalin (Lyrica) 100 MG capsule Every 8 (Eight) Hours. Active HYDROcodone-acet aminophen ([place]laken) 5-325 MG per tablet [place] 5 mg-325 mg tablet Take 1 tablet every day by oral route as needed. Active albuterol sulfate HFA (ProAir HFA) 108 (90 Base) MCG/ACT inhaler 2 puffs as needed Active budesonide-formo terol (Symbicort) 80-4.5 MCG/ACT inhaler Every 12 (Twelve) Hours. Active naproxen (NAPROSYN) 500 MG tablet Take 500 mg by mouth. Active furosemide (LASIX) 20 MG tablet 08/19/2021 Active pantoprazole (PROTONIX) 40 MG EC tablet 1 po daily 30 tablet 5 11/15/2021 Active Active Problems Problem Noted Date Diagnosed Date Nontoxic multinodular goiter 10/13/2021 Family History Medical History Relation Name Comments Heart attack Father Diverticulitis Mother Relation Name Status Comments Father Mother Social History Tobacco Use Types Packs/Day Years [...] Sign Reading Time Taken Comments Blood Pressure 122/78 10/13/2021 10:02 AM EST Pulse 86 10/13/2021 10:02 AM EST Temperature - - Respiratory Rate - - Oxygen Saturation 97% 10/13/2021 10:02 AM EST Inhaled Oxygen Concentration - - Weight 90.9 kg (200 lb 6.4 oz) 10/13/2021 10:02 AM EST Height 162.6 cm (5' 4 ) 10/13/2021 10:02 AM EST Body Mass Index 34.4 10/13/2021 10:02 AM EST Plan of Treatment Health Maintenance Due Date Last Done Comments Annual Gynecologic Pelvic and Breast Exam 1965 TDAP/TD VACCINES (1 - Tdap) 1986 MAMMOGRAM 2007 COLOGUARD 2012 COLON CANCER SCREENING 5 YEA R SIGMOIDOSCOPY 2012 COLONOSCOPY 2012 [address]ECTAL CANCER SCREENING 2012 CT COLONOGRAPHY 2012 FECAL OCCULT BLOOD TEST 2012 FIT Testing (1 year) 2012 ZOSTER VACCINE (1 of 2) 2017 ANNUAL PHYSICAL 10/05/2021 HEPATITIS C SCREENING 10/05/2021 COVID-19 Vaccine (1 - 2023- season) 2024 INFLUENZA VACCINE 08/04/2025 Pneumococcal Vaccine 50+ (3 of 3 - PCV20 or PCV21) 10/10/2026 10/10/2021, 10/24/2018 Insurance O MEDICARE A & B Member Subscriber Plan / Payer (Ef fective 2019-Present) Name:Darshana Barr Member ID:[id number] Relation to Subscriber:Self Name:Darshana Barr Subscriber ID:[id number] Payer ID:[id number] Group ID:Not on file Type:Not on file Address: [address] Care Teams Gas Or Water Meter Installer Relationship Specialty Start Date End Date Janes Mason MD [address] [place] [address] PCP - General Family Medicine 07/11/21
--- OUTSIDE RECORDS SUMMARY | 2025-06-11 10:11 | XMS_ITS | Encounter Summary ---
Author Organization [employer] ([place], [place], [place], [place]) Address [address] [place] [address] Care Team Providers Care Embroidery Patternmaker Name Role Phone Unavailable Primary Care Provider Unavailabl e Encounter Details Date Type Department Care Team (Late st Contact Info) Description 01/04/2021 Transcribed Document [facility] [place] [facility] [place] [address] ProviderDarrell MD [address] [place] [id number] Social History Tobacco Use Types Packs/Day Years Used Date Smoking Tobacco: Never Assessed Comments Unknown Sex and Gender Information Value Date Recorded Sex Assigned at Not on file Legal Sex Female 6:16 PM CDT Gender Identity Not on file Sexual Orientation Not on file documented as of this encounter Miscellaneous Notes * Cerner Conversion Note - Historical ProviderMD - 01/04/2021 2:39 PM PLANT PATHOLOGIST DATE OF SERVICE: 12/21/2020 The patient's height 64 inches, weight 218 pounds. This is a 6-minute walk test. The following parameters were measured before and after 6 minutes walking. 1. Heart rate. 2. Blood pressure. 3. Pain scale. 4. Dyspnea scale. 5. Fatigue scale. 6. Oxygen saturation. The patient's blood pressure was 122/87 mmHg before and 120/90 mmHg after 6 minutes walking. Oxygen saturation was 97 on room air, the patient walked for 6 minutes and oxygen saturation remained normal at 96%. The patient walked for 8000 feet, which is 305 meters. INTERPRETATION: 1. Decreased 6-minute walking distance. 2. Decreased exercise capacity. 3. Normal oxygen saturation. This patient does not meet the criteria for oxygen therapy. Clinical correlation is suggested. /[id number] MD XIAO Roberson/MIRIAN / XIAO / MISAEL /[id number] Electronically signed by Interface, [facility] Conversion Heat Treat Technician Cerner at 02/18/2023 5:14 PM CDT documented in this encounter Plan of Treatment Not on file documented as of this encounter Visit Diagnoses Not on filedocumented in this encounter
--- OUTSIDE RECORDS SUMMARY | 2025-06-11 10:11 | XMS_ITS | Encounter Summary ---
Author Organization [employer] ([place], [place], [place], [place]) Address [address] [place] [address] Care Team Providers Care Gun Perforator Loader Name Role Phone Unavailable Primary Care Provider Unavailabl e Encounter Details Date Type Department Care Team (Late st Contact Info) Description 04/11/2020 Transcribed Document [facility] [place] [address] [place] [id number] ProviderDarrell MD [address] [place] [address] Social History Tobacco Use Types Packs/Day Years Used Date Smoking Tobacco: Never Assessed Comments Unknown Sex and Gender Information Value Date Recorded Sex Assigned at Not on file Legal Sex Female 6:16 PM CDT Gender Identity Not on file Sexual Orientation Not on file documented as of this encounter Miscellaneous Notes * Cerner Conversion Note - Historical ProviderMD - 04/11/2020 12:55 PM CDT DATE OF ADMISSION: 04/11/2020 HISTORY OF PRESENT ILLNESS: This is a 54-year-old female with a chief complaint of chronic neck pain for several years' duration who is seen today for a followup visit. The patient is following up for medication refills. She reports she continues to have moderate to moderately severe pain on the left side of the neck that radiates down to the left shoulder. She says her pain is a burning, pinching sensation. She reports that she is using cold. She says that home exercises have made her pain worse. She says she is still trying to decrease her Marion usage, however, she had to go back to 3 times daily due to an increase in her activity. She says the use of the medication does give her some help and relief from her pain. She says that she is taking the medication exactly as prescribed. She denies any adverse effects including toxic effect, sedation, driving problems, or GI problems. She says that occasionally she does have some constipation, but she uses something [id number] that does help with that. The patient is also taking diclofenac as well as Robaxin and Lyrica in addition to the [place] and denies any adverse effects from any of those medications as well. The patient does have urine drug screening noted from her last visit on March 14, 2020, that is consistent with her current medications. REVIEW OF SYSTEMS: Constitutional, respiratory, cardiovascular, ophthalmology, gastrointestinal, genitourinary, ENT, musculoskeletal, integumentary, neurology, psychiatry, endocrine, hematology were not changed from her last visit on March 14, 2020. PHYSICAL EXAMINATION: VITAL SIGNS: Blood pressure 116/67, respiratory rate 16, O2 saturation 97%, temperature 97.4. Pain level 5-6. Hours of sleep 7-8. No change in [...] mix with alcohol, or self-escalate it. 2. The patient has been screened for symptoms or risk factors related to COVID-19 both prior to arrival for the visit and upon arrival at the clinic for the visit today. No risk factors or symptoms are identified at today's visit and the patient has been afebrile. 3. I have educated the patient to use non-pharmacologic measures to alleviate pain prior to using as needed opioid medication such as heat, ice, rest, relaxation, repositioning, exercise, stretches, TENS unit and/or massage. 4. I have reviewed the patient's urine drug screening from her last visit on March 14, 2020. It is consistent with her current medications. We are going to continue to repeat those randomly. 5. Continue Lyrica 100 mg 3 times daily. 6. Continue [place] 7.5/325 mg 3 times daily as needed. 7. Continue Robaxin 750 mg twice daily as needed. 8. Continue diclofenac 75 mg twice daily. 9. Continue Movantik 25 mg daily as needed. 10. I have encouraged the patient to continue a healthy diet and range of motion exercises for her neck. 11. We are going to see the patient back in 1 month to re-evaluate. 12. The assessment and plan for today's visit have been reviewed by Dr. Krishna, however, I have prescribed the medications for this patient's treatment plan today. /[id number] FLOYD Mullins/MIRIAN / PITA / MODL CC: Janes Mason MD Electronically signed by Humera, [facility] Conversion Erecting Engineer Cerner at 02/18/2023 5:04 PM CDT documented in this encounter Plan of Treatment Not on file documented as of this encounter Visit Diagnoses Not on filedocumented in this encounter
--- OUTSIDE RECORDS SUMMARY | 2025-06-11 10:11 | XMS_ITS | Encounter Summary ---
Author Organization [employer] ([place], [place], [place], [place]) Address [address] [place] [address] Care Team Providers Care Mental Health Consultant Name Role Phone Unavailable Primary Care Provider Unavailabl e Encounter Details Date Type Department Care Team (Late st Contact Info) Description 05/11/2019 Transcribed Document [facility] [place] [facility] [place] [address] ProviderDarrell MD [address] [place] [id number] Social History Tobacco Use Types Packs/Day Years Used Date Smoking Tobacco: Never Assessed Comments Unknown Sex and Gender Information Value Date Recorded Sex Assigned at Not on file Legal Sex Female 6:16 PM CDT Gender Identity Not on file Sexual Orientation Not on file documented as of this encounter Miscellaneous Notes * Cerner Conversion Note - Historical ProviderMD - 05/11/2019 4:23 PM CDT DATE OF ADMISSION: 05/11/2019 HISTORY OF PRESENT ILLNESS: This is a 54-year-old female with a chief complaint of chronic neck pain for several years' duration, who is here today for a followup visit. The patient reports that she continues to have neck pain that radiates to the left shoulder and down into the left arm. The patient says that she has been taking her Odessa 2-3 times daily as needed. The patient says that when she takes it 3 times daily, she gets such good help and relief. The patient says that she is having difficulty sleeping and so her days are somewhere around 19-20 hours long and that the medication being only twice daily, is not enough that she is awake so much. The patient says that she continues to have a burning sensation into the left shoulder from her neck. The patient is taking Lyrica 100 mg 3 times daily and Odessa 7.5/325 mg 2-3 times daily as needed. The patient reports that the use of the medication does make her more functional and able to do the things that she needs to do. The patient says that the use of the medication increases her quality of life and that she takes it exactly as directed. The patient says she does keep the medication locked and secured in her home. She also denies any adverse effects from the medication including toxic effect, sedation, driving problems, or GI problems. REVIEW OF SYSTEMS: Constitutional, Respiratory, Cardiovascular, Ophthalmology, Gastrointestinal, Genitourinary, ENT, Musculoskeletal, Integumentary, Neurology, Psychiatry, Endocrine, Hematology were not changed from her last visit on April 14, 2019. PHYSICAL EXAMINATION: Blood pressure 126/64, height 61 inches, heart rate 98, respiratory rate 16, O2 sat 98%, temperature 98.2. Pain level 5. Hours of sleep 7-8. No change in [...] of the cervical spine. 2. 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 3. Cervical radiculopathy. 4. Cervical spondylosis. 5. Long-term opioid use. 6. Long-term use of high-risk medication. Patient is on Lyrica. 7. Opioid-induced constipation. 8. Multiple myofascial pain. [...] alcohol, or self-escalate it. 2. I have had a lengthy discussion with the patient in regards to taking her medication three times daily. I have advised the patient on the risks versus benefit of that and also advised her to use it strictly as needed. I am willing to give the patient 7.5/325 mg of Odessa 3 times a day consistently with #90 tablets and she has been compliant with the rules and the regulations of the clinic and she has voiced understanding of the risks versus benefit of that increase. 3. We are going to continue Lyrica 100 mg 3 times daily. 4. We are going to send the patient for urine drug screening today to ensure compliance with the regulations of the clinic. 5. We are going to continue Movantik 25 mg daily. 6. We are going to continue Robaxin 750 mg 3 times daily. 7. I have encouraged the patient to continue her home exercise program that includes stretching and intentional range of motion of her neck. 8. We are going to add trazodone 25-50 mg at bedtime to see if we can give the patient some help and relief with her pain at nighttime so that she can sleep better. 9. We am going to see the patient back after one month to re-evaluate. 10. The assessment and plan for today's visit has been reviewed by Dr. Krishna;, however, medications for this patient's treatment plan have been prescribed by myself today. Dictated By: Jazz Orta APRN For Pepe Krishna M.D., BLAKE Pain Certified Pepe Krishna M.D., BLAKE Pain Certified Dict: 05/11/2019 16:23:58 Trans: 05/11/2019 23:13:31 CC1: Pepe Krishna M.D., BLAKE Pain Certified CC2: Dr. Janes Mason Electronically signed by Landon Grubbs Conversion Metal Furniture Panel Coverer Cerner at 02/18/2023 5:01 PM CDT documented in this encounter Plan of Treatment Not on file documented as of this encounter Visit Diagnoses Not on filedocumented in this encounter
--- OUTSIDE RECORDS SUMMARY | 2025-06-11 10:11 | XMS_ITS | Encounter Summary ---
Author Organization [employer] ([place], [place], [place], [place]) Address [address] [place] [address] Care Team Providers Care Olap Developer Name Role Phone Unavailable Primary Care Provider Unavailabl e Encounter Details Date Type Department Care Team (Late st Contact Info) Description 09/24/2019 Transcribed Document [facility] [place] [facility] [place] [address] Darrell Flores MD [address] [place] [id number] Social History Tobacco Use Types Packs/Day Years Used Date Smoking Tobacco: Never Assessed Comments Unknown Sex and Gender Information Value Date Recorded Sex Assigned at Not on file Legal Sex Female 6:16 PM CDT Gender Identity Not on file Sexual Orientation Not on file documented as of this encounter Miscellaneous Notes * Cerner Conversion Note - Darrell Flores MD - 09/24/2019 11:59 AM SOFTWARE ENGINEERING ASSOCIATE MANAGER DATE OF PROCEDURE: 09/24/2019 SURGEON: Pepe Krishna MD, BLAKE Pain Certified PROCEDURE PERFORMED: Knee injection with steroid under ultrasound guidance. SITE: Right knee. SEDATION: 5 mg of diazepam orally for sedation. DIAGNOSIS: Osteoarthritis of the knee. PREPROCEDURE PAIN LEVEL: 0/10. POSTPROCEDURE PAIN LEVEL: 0/10. PROCEDURE IN DETAIL: After explaining the risks and benefits of the procedure an informed consent was obtained. Then the patient was transferred to the procedure room and placed in supine position. The knee was prepped and draped in a sterile fashion. Ultrasound directed to have a better visual approach to the knee joint. Prior to beginning of the procedure, time-out was performed. The skin and subcutaneous tissue overlying the joint was anesthetized with 27-gauge needle with 1 mL of lidocaine mixed with bicarb. Then using 25-gauge needle 1-1/2-inch, was advanced to the knee joint under ultrasound guidance, used straight probe in a plane mode. Then after careful aspiration, 5 mL of lidocaine mixed with 0.25% bupivacaine and 40 mg of Depo-Medrol was injected. The patient was tolerating the procedure well without incident. Upon completion of the procedure, the needle was removed and the injection site was covered with dressing. During the procedure, the vital signs which include blood pressure, heart rate, and pulse ox were continuously measured. The patient was transferred to recovery room without complication, and the patient was neurologically intact. Appropriate discharge instruction was given to the patient. Also, we instructed the patient before discharge to contact the clinic if there is any question or difficulty. We are going to continue with the same plan. 1. [place] 7.5/325 three times a day. 2. Lyrica 100 mg 3 times a day. 3. Robaxin 750 mg 3 times a day. 4. Movantik 25 mg 1 a day. 5. I am going to see the patient after 2 to 4 weeks to re-evaluate her. /[id number] Pepe Krishna MD, BLAKE Pain Certified EN/MIRIAN / EN / MODL /[id number] Electronically signed by Humera, [facility] Conversion Java Security Architect Cerner at 02/18/2023 5:03 PM CDT documented in this encounter Plan of Treatment Not on file documented as of this encounter Visit Diagnoses Not on filedocumented in this encounter
--- OUTSIDE RECORDS SUMMARY | 2025-06-11 10:11 | XMS_ITS | Encounter Summary ---
Author Organization [employer] ([place], [place], [place], [place]) Address [address] [place] [address] Care Team Providers Care Flosser Name Role Phone Unavailable Primary Care Provider Unavailabl e Encounter Details Date Type Department Care Team (Late st Contact Info) Description 11/24/2020 Transcribed Document [facility] [place] [facility] [place] [address] ProviderDarrell MD [address] [place] [phone] Social History Tobacco Use Types Packs/Day Years Used Date Smoking Tobacco: Never Assessed Comments Unknown Sex and Gender Information Value Date Recorded Sex Assigned at Not on file Legal Sex Female 6:16 PM CDT Gender Identity Not on file Sexual Orientation Not on file documented as of this encounter Miscellaneous Notes * Cerner Conversion Note - Historical ProviderMD - 11/24/2020 3:48 PM HOUSING LIAISON DATE OF ADMISSION: 11/24/2020 HISTORY OF PRESENT ILLNESS: This is a 55-year-old female with a chief complaint of chronic neck pain for several years' duration, came today for followup. The patient has been following up in our clinic since 2017. We tried with cervical epidural steroid injection and facet block, both of them gave the patient temporary relief. We tried with a spinal cord stimulator trial in 2018 that did not give the patient good help and relief. The patient has been stabilized on her current medication. She is taking hydrocodone 7.5/325 three times a day and Lyrica 100 mg 4 times a day. The patient denied any major side effects to her medication which include toxic effects, sedation, driving problem, or GI problem. The patient was recently admitted to the hospital on October 06, 2020, for having pneumonia, and she was treated in hospital and discharged after that and gave steroid. Recently, she had also workup on her thyroid, and she states she is still following up with her physician for that. REVIEW OF SYSTEMS: Constitutional, cardiovascular, ophthalmology, gastrointestinal, genitourinary, ENT, musculoskeletal, integumentary, neurology, psychiatry, endocrine, hematology were not changed from her last visit on October 04, 2020, except respiratory, the patient was admitted to the hospital on October 06, 2020, for having pneumonia. PHYSICAL EXAMINATION: VITAL SIGNS: Blood pressure 132/66, heart rate is 94, respirations 16, saturation 97%, temperature 97.1. Pain level 2 to 3. Hours of sleep 6 to 8. No change in physical and [...] Cervical spondylosis. 4. Multiple myofascial pain and fibromyalgia to the neck and upper back. 5. Osteoarthritis of multiple joints. 6. Status post spinal cord stimulator with Medtronic was not successful. 7. Long-term opioid use. 8. Long-term use of gabapentin. 9. Intermittent opioid-induced constipation. PLAN: 1. We are going to continue with hydrocodone 7.5/325 three times a day. 2. Lyrica 100 mg 4 times a day. 3. The patient has been fairly well controlled [...] to mix with alcohol, or self-escalate it. 4. The patient is going to have an ultrasound to her thyroid and her physician is to continue followup with her with her recent pneumonia. 5. Encouraged the patient to continue home exercise, stretching, and walking. 6. I am going to see the patient after one month to re-evaluate her. The patient has been screened for symptoms or risk factors related to COVID-19 both prior to arrival for the visit and upon arrival at the clinic for the visit today. No risk factors or symptoms are identified at today's visit and the patient has been afebrile. /[id number] Pepe Krishna MD, BLAKE Pain Certified KR/AQ / KR / MODL CC: REYES BRONSON MD Electronically signed by Humera, [facility] Conversion Plycor Operator Cerner at 02/18/2023 4:50 PM CDT documented in this encounter Plan of Treatment Not on file documented as of this encounter Visit Diagnoses Not on filedocumented in this encounter
--- OUTSIDE RECORDS SUMMARY | 2025-06-11 10:11 | XMS_ITS | Clinical Summary ---
Author Organization [employer] ([place], [place], [place], [place]) Address [address] [place] [address] Care Team Providers Care Steamer Gum Candy Name Role Phone Unavailable Primary Care Provider Unavailabl e Allergies Active Allergy Reactions Criticality Noted Date Comments Acetaminophen-Codeine Other (See Comment s),Nausea And Vomiting 10/11/2021 Codeine Other (See Comments) High 09/06/2014 Penicillins Other (See Comments),Rash Low 3 Medications albuterol 90 mcg/actuation inhaler SMARTSIG:Via Inhaler Active atorvastatin (LIPITOR) 40 MG tablet SMARTSI.0 Tablet(s) By Mouth Daily 09/10/2024 Active Breztri Aerosphere 160-9-4.8 mcg/actuation HFAA Take 2 puffs by mouth 2 (two) times daily. 10/03/2024 Active cyclobenzaprine (FLEXERIL) 10 MG tablet Take 1 tablet (10 mg total) by mouth. Active HYDROcodone-elaine taminophen (NORCO) 7.5-325 mg per tablet SMARTSI.0 Tablet(s) By Mouth 3 Times Daily PRN 10/05/2024 Active HYDROcodone-elaine taminophen (NORCO) 5-325 mg per tablet [place] 5 mg-325 mg tablet Take 1 tablet every day by oral route as needed. Active meloxicam (MOBIC) 15 MG tablet SMARTSI.0 Tablet(s) By Mouth Daily 08/31/2024 Active montelukast (SINGULAIR) 10 mg tablet SMARTSI.0 Tablet(s) By Mouth Daily 08/06/2024 Active phentermine (ADIPEX-P) 37.5 mg tablet Take 1 tablet (37.5 mg total) by mouth. Active pregabalin (LYRICA) 50 MG capsule SMARTSI.0 Capsule(s) By Mouth 3 Times Daily 09/04/2024 Active methylPREDNISol one (MEDROL DOSEPACK) 4 mg tablet follow package directions. 21 tablet 10/08/2024 Active Social History Tobacco Use Types Packs/Day Years Used Date Smoking Tobacco: Never Smokeless Tobacco: Never Comments No Sex and Gender Information Value Date Recorded Sex Assigned at Not on file Legal Sex Female 6:16 PM CDT Gender Identity Not on file Sexual Orientation Not on file Last Filed Vital Signs Vital Sign Reading Time Taken Comments Blood Pressure 117/76 10/08/2024 10:29 AM EST Pulse 72 10/08/2024 10:29 AM EST Temperature 36.6 C (97.9 F) 10/08/2024 10:29 AM EST Respiratory Rate 14 10/08/2024 10:29 AM EST Oxygen Saturation 97% 10/08/2024 10:29 AM EST Inhaled Oxygen Concentration - - Weight 93 kg (205 lb) 10/08/2024 10:29 AM EST Height 162.6 cm (5' 4 ) 10/08/2024 10:29 AM EST Body Mass Index 35.19 10/08/2024 10:29 AM EST Plan of Treatment Health Maintenance Due Date Last Done Comments CT Colonography 1967 Colonoscopy 1967 Colorectal Cancer Screening 1967 FOBT/FIT 1967 Fit-DNA (Cologuard) 1967 Sigmoidoscopy 1967 Depression Screening (12+) 1979 HIV Screening 1982 Hepatitis C Screening 1985 DTAP/TDAP/TD VACCINES (1 - Tdap) 1986 Pap Smear 1988 Breast Cancer Screening 2007 Lipid Panel 2012 Shingles Vaccine (Zoster) (1 of 2) 2017 Medicare Initial AWV G0438 11/05/2020 COVID-19 VACCINE ( season) 2024 09/14/2021, 02/24/2021, 01/10/2021 Influenza Vaccine (#1) 2025 Tobacco Cessation Counseling and Screening (12+) 10/08/2025 10/08/2024 Pneumococcal 50+ years (3 of 3 - PCV20 or PCV21) 10/10/2026 10/10/2021, 10/24/[address] [place] [address] [place] [address] CROSS/BLUE SHIELD Member Subscriber Plan / Payer (Ef fective 2023-Present) Name:Darshana Barr Relation to Subscriber:Self Name:Darshana Barr Payer ID:Not on file Group ID:[id number] Type:Not on file Address: [facility] [id number] [place] [id number]
--- OUTSIDE RECORDS SUMMARY | 2025-06-11 10:11 | XMS_ITS | Encounter Summary ---
Author Organization [employer] ([place], [place], [place], [place]) Address [address] [place] [address] Care Team Providers Care License Inspector Name Role Phone Unavailable Primary Care Provider Unavailabl e Encounter Details Date Type Department Care Team (Late st Contact Info) Description 08/04/2020 Transcribed Document [facility] [place] [address] [place] [id number] ProviderDarrell MD [address] [place] [id number] Social History Tobacco Use Types Packs/Day Years Used Date Smoking Tobacco: Never Assessed Comments Unknown Sex and Gender Information Value Date Recorded Sex Assigned at Not on file Legal Sex Female 6:16 PM CDT Gender Identity Not on file Sexual Orientation Not on file documented as of this encounter Miscellaneous Notes * Cerner Conversion Note - Historical ProviderMD - 08/04/2020 9:40 AM CDT DATE OF ADMISSION: 08/03/2020 HISTORY OF PRESENT ILLNESS: This is a 55-year-old female with a chief complaint of chronic neck pain radiating to both shoulders, came today for followup. The patient has fairly good control with her pain with a combination of interventional treatment of cervical epidural steroid injection and facet block and her current medication. The patient is taking her hydrocodone 7.5/325 three times a day and pregabalin 100 mg 3 times a day. The patient mentioned that the medication is helping her and give her more help and relief. She also recently mentioned that her increase of Cymbalta to 60 mg made her more sleepy. She is using compound cream that gave her more help and relief. She is using her medicine according to the clinic instruction and following the rule and regulation using the controlled medication. She denied any major side effects to her medication which include toxic effects, sedation, driving problem, or GI problem. REVIEW OF SYSTEMS: Constitutional, respiratory, cardiovascular, ophthalmology, gastrointestinal, genitourinary, ENT, musculoskeletal, integumentary, neurology, psychiatry, endocrine, hematology were not changed from June 27, 2020. PHYSICAL EXAMINATION: VITAL SIGNS: Blood pressure is 147/67, heart rate is 91, respirations 16, saturation 98%, temperature 97.9. Pain level 2/10 to 3/10. Hours of sleep is 8. No change [...] 5. Multiple myofascial pain. 6. Insomnia. 7. Osteoarthritis, multiple joints. 8. Long-term opioid use. 9. Long-term use of high-risk medication, Lyrica. 10. Intermittent opioid-induced constipation. 11. The patient did not show any response to the spinal cord stimulator trial in March 2018 with Medtronic. PLAN: 1. We are going to continue with hydrocodone 7.5/325 three times a day. 2. Pregabalin 100 mg 3 times a day. 3. Robaxin 750 mg take one at night. 4. Compound cream apply 4 times a day. 5. Diclofenac 75 mg twice a day. 6. Movantik 25 mg as needed. 7. Encouraged the patient to continue home exercise, stretching, and walking. 8. The patient has been fairly well controlled [...] to mix with alcohol, or self-escalate it. 9. I am going to see the patient after one month to re-evaluate her. The patient has been screened for symptoms or risk factors related to COVID-19 both prior to arrival for the visit and upon arrival at the clinic for the visit today. No risk factors or symptoms are identified at today's visit and the patient has been afebrile. /[id number] Pepe Krishna MD, BLAKE Pain Certified EN/MIRIAN / EN / MODL CC: Dr. Janes Mason Electronically signed by [facility], [facility] Conversion Field Return Repairer Cerner at 02/18/2023 4:48 PM CDT documented in this encounter Plan of Treatment Not on file documented as of this encounter Visit Diagnoses Not on filedocumented in this encounter
--- OUTSIDE RECORDS SUMMARY | 2025-06-11 10:11 | XMS_ITS | Encounter Summary ---
Author Organization [employer] ([place], [place], [place], [place]) Address [address] [place] [address] Care Team Providers Care Wood Stainer Name Role Phone Unavailable Primary Care Provider Unavailabl e Encounter Details Date Type Department Care Team (Late st Contact Info) Description 01/06/2021 Transcribed Document [facility] [place] [facility] [place] [address] ProviderDarrell MD [address] [place] [id number] Social History Tobacco Use Types Packs/Day Years Used Date Smoking Tobacco: Never Assessed Comments Unknown Sex and Gender Information Value Date Recorded Sex Assigned at Not on file Legal Sex Female 6:16 PM CDT Gender Identity Not on file Sexual Orientation Not on file documented as of this encounter Miscellaneous Notes * Cerner Conversion Note - Historical ProviderMD - 01/06/2021 1:08 PM PROGRAM WRITER [facility] [place] [address] FERMIN BARR :1965 Visit Time:01/06/2021 What to do next Your Diagnosis Dysphagia, unspecified Encounter for screening for malignant neoplasm of colon Instructions From Your Care Team Diet after Discharge: Resume usual diet as tolerated, Do not drink any alcoholic beverages Activity after Discharge: Rest and relax today, No strenuous activity Driving after Discharge: Do not drive for 24 hours May Return to Work/School: Tomorrow Notify Provider of: Questions or concerns No signing legal documents for 24 hours. Follow-Up Appointments Follow Up with [facility] When Only if needed Where: [address] [facility] [address] [place] [address]- [facility] (1) Medications What How Much When Instructions Next Dose albuterol (albuterol 5 mg/ mL (0.5%) inhalation solution) 0.5 Milliliter(s) Nebulized Inhalation Every 6 Hours Duration: 30 Day(s) albuterol (ProAir HFA 90 mcg/ inh inhalation aerosol) 2 Puff(s) Inhalation Four Times A Day as needed for as needed for wheezing budesonide-formoterol (Symbicort 160 mcg-4.5 mcg/ inh inhalation aerosol) Inhalation Two Times A Day cholecalciferol (Vitamin D3) Oral Every Day diclofenac Oral furosemide (Lasix 20 mg oral tablet) Oral Every Day lansoprazole 30 Milligram(s) Oral Two Times A Day methocarbamol (Robaxin) 750 Milligram(s) Oral Three Times A Day pregabalin (Lyrica) 100 Milligram(s) Oral tiotropium (Spiriva Respimat 10 ACT 2.5 mcg/ inh inhalation aerosol) Inhalation Every Day Take your medications faithfully. Do NOT skip [...] of unused and medications per pharmacy guidance. Education Materials Hemorrhoids Hemorrhoids are swollen veins that may [...] 20 minutes to ease pain. Do this 3???4 times a day. You may do this [...] Leave the ice on for 20 minutes, 2???3 times a day. General instructions ??? Take bzcv-ami-[id number] and prescription medicines only as told by [...] 20 minutes to ease pain. Do this 3???4 times a day. This information is not intended to replace advice given to you by your health care provider. Make sure you discuss any questions you have with your health care provider. Document Released: 07/30/2009 Document Revised: 10/29/2019 Document Reviewed: 03/12/2019 [employer] Patient Education ?? 2020 [employer]. Instructions for after EGD with Dilation 1. [...] call your doctor. HOME CARE INSTRUCTIONS: ACTIVITY: ??? You may resume your regular activity tomorrow, but move at a slower pace for the next 24 hours. ??? Take frequent rest periods for the next 24 hours. ??? Walking will help get rid of the air and reduce the bloated feeling in your belly (abdomen). ??? No driving for 24 hours because of the medication (sedation) used during the test. ??? You may shower. ??? Do not sign any important legal documents or operate any machinery for 24 hours (because of the sedation used during the test). NUTRITION: ??? Drink plenty of fluids. ??? You may resume your normal diet or as instructed by your doctor ??? Begin with a light meal and progress to your normal diet. Heavy or fried foods are harder to digest and may make you feel sick to your stomach (nauseated). ??? Avoid alcoholic beverages for 24 hours or as instructed. MEDICATIONS: ??? You may resume your normal medications unless your doctor tells you otherwise. WHAT TO EXPECT TODAY: ??? Some feelings of bloating in the abdomen. ??? Excessive burping today and passage of more gas than usual. ??? A sore throat can be normal. Use throat lozenges or gargle with warm salt water and drink plenty of fluids. FINDING OUT THE RESULTS OF YOUR TEST: ??? Not all test results are available during your visit. If you had biopsies or other tests done during your procedure, you can make an appointment with your doctor to get the results. Sometimes you may be instructed to call the doctor???s office for your results. It is important for you to follow up on all of your test results. SEEK IMMEDIATE MEDICAL CARE IF: ??? You cannot eat or drink. ??? You have worsening throat or chest pain. ??? You have dizziness, lightheadedness, or you faint. ??? You have severe nausea or vomiting. ??? You have a fever greater than 101. ??? You have chills. ??? You have severe abdominal pain or discomfort that gets worse throughout the day. ??? You have black, tarry, or bloody stools. [...] call your doctor. HOME CARE INSTRUCTIONS ACTIVITY: ??? You may resume your regular activity tomorrow, but move at a slower pace for the next 24 hours. ??? Take frequent rest periods for the next 24 hours. ??? Walking will help get rid of the air and reduce the bloated feeling in your belly (abdomen). ??? No driving for 24 hours because of the medication (sedation) used during the test. ??? You may shower. ??? Do not sign any important legal documents or operate any machinery for 24 hours (because of the sedation used during the test). NUTRITION: ??? Drink plenty of fluids. ??? You may resume your normal diet or as instructed by your doctor. ??? Begin with a light meal and progress to your normal diet. Heavy or fried foods are harder to digest and may make you feel sick to your stomach (nauseated). ??? Avoid alcoholic beverages for 24 hours or as instructed. MEDICATIONS: ??? You may resume your normal medications unless your doctor tells you otherwise. WHAT TO EXPECT TODAY: ??? Some feelings of bloating in the abdomen. ??? Passage of more gas than usual. ??? Spotting of blood in your stool or on the toilet paper. ??? No bowel movements for 1-3 days due to colon prep. IF YOU HAD POLYPS REMOVED DURING THE COLONOSCOPY: ??? Avoid aspirin and NSAIDS until . FINDING OUT THE RESULTS OF YOUR TEST: ??? Not all test results are available during your visit. If you had biopsies or other tests done during your procedure, you can make an appointment with your doctor to get the results. Sometimes you may be instructed to call the doctor???s office for your results. It is important for you to follow up on all of your test results. SEEK MEDICAL HELP IF: ??? You have more than a spotting of blood in your stool. ??? Your belly is swollen (abdominal distension). ??? You are nauseated and vomiting and it does not improve. ??? You have a fever greater than 101 degrees. ??? You have severe abdominal pain or discomfort [...] activities are safe for you. ??? Take uldb-ymv-sphqdcs and prescription medicines only as told by [...] 01/27/2002 Document Revised: 10/24/2018 Document Reviewed: 06/06/2018 Elsevier Patient Education ?? 2020 [employer] Emergency Awareness and Preventative Care STROKE [...] Assistance with quitting is available by contacting 2-732-EKBH-NOW. This is a free resource providing counseling, support, and referral. Or you may contact your personal physician. National Suicide Prevention Lifeline: The National Suicide Prevention [...] and how to prevent infections, visit www.cdc.gov/sepsis. Test Results Laboratory or Other Results This Visit (last charted value for your 01/06/2021 visit) No Laboratory or Other Results This Visit Patient Name:FERMIN BARR I have received this information and was given the opportunity to ask questions. Patient/Hose Finisher Name: Patient/Hose Finisher Signature: Relationship to Patient: Clinician/Hospital Hose Finisher Signature: Date: Electronically signed by Interface, [facility] Conversion Licensed Embalmer Robby at 02/18/2023 5:06 PM CDT documented in this encounter Plan of Treatment Not on file documented as of this encounter Visit Diagnoses Not on filedocumented in this encounter
--- OUTSIDE RECORDS SUMMARY | 2025-06-11 10:11 | XMS_ITS | Clinical Summary ---
Author Organization Healthcare Address [address] [id number] Care Team Providers Care Buck Presser Name Role Phone Janes Mason MD Primary Care Provider [phone] Social History Tobacco Use Types Packs/Day Years [...] (2 of 2 - PPSV23) 10/24/2019 10/24/2018 [id number] Vaccine ( season) 2024 09/14/2021, 02/24/2021, 01/10/2021 UKY-Influenza Vaccine (#1) 2025 HPV Vaccines Aged Out No longer [...] patient's age to complete this topic Insurance [facility] [place] [phone] Care Teams Buck Presser Relationship Specialty Start Date End Date Janes Mason MD [address] [place] [address] PCP - General 03/17/21
--- OUTSIDE RECORDS SUMMARY | 2025-06-11 10:12 | XMS_ITS | Encounter Summary ---
Author Organization [employer] ([place], [place], [place], [place]) Address [address] [place] [address] Care Team Providers Care Sewing Supervisor Name Role Phone Unavailable Primary Care Provider Unavailabl e Encounter Details Date Type Department Care Team (Late st Contact Info) Description 01/18/2020 Transcribed Document [facility] [address] [place] [id number] ProviderDarrell MD [address] [place] [id number] Social History Tobacco Use Types Packs/Day Years Used Date Smoking Tobacco: Never Assessed Comments Unknown Sex and Gender Information Value Date Recorded Sex Assigned at Not on file Legal Sex Female 6:16 PM CDT Gender Identity Not on file Sexual Orientation Not on file documented as of this encounter Miscellaneous Notes * Cerner Conversion Note - Historical ProviderMD - 01/18/2020 11:20 AM CDT DATE OF ADMISSION: 01/18/2020 HISTORY OF PRESENT ILLNESS: This is a 54-year-old female with a chief complaint of chronic neck pain for several years' duration who is here today for a followup visit. The patient is following up for medication management and refills. She reports that she is not feeling well today. She has been to the emergency room and had a chest x-ray, was diagnosed with a COPD flare-up. She says that she has been on prednisone and a Z-Rohan. She says that she is feeling slightly better, but she continues to have significant fatigue. She says that she has decreased taking her Robaxin to once daily, and she is trying to increase her activity level but having the flare-up of her COPD is limiting for her. The patient says that she continues to have pain in her neck that is above the C5 level. She says that it radiates into the left shoulder. She says it is an aching, pressure-like sensation. She says that she does use cold in addition to taking her Lyrica 3 times daily and her Medora 3 times daily as needed. The patient says that the use of the medication makes her more functional. She denies any adverse effects including toxic effect, sedation, driving problems, or GI problems. The patient says she did go to the Rheumatology appointment and had lots of blood work done, but has not gotten the results yet and has a followup with the commercial marketing specialist in February. REVIEW OF SYSTEMS: The patient has been treated for COPD flare-up and is currently on antibiotics and prednisone. Constitutional, respiratory, cardiovascular, ophthalmology, gastrointestinal, genitourinary, ENT, musculoskeletal, integumentary, neurology, psychiatry, endocrine, hematology were not changed from December 15, 2019. PHYSICAL EXAMINATION: VITAL SIGNS: Blood pressure 137/65, weight 210, height 64 inches, heart rate 87, respiratory rate 16, O2 saturation 96%, temperature deferred. The patient is wearing a mask. Pain level 4. Hours of sleep 2. No change in physical and neurological exam. [...] opioid use. 6. Multiple myofascial pain. 7. History of insomnia. 8. Osteoarthritis in multiple joint sites. 9. Chronic bilateral knee pain secondary to osteoarthritis. 10. Opioid-induced constipation intermittently. PLAN: 1. The patient has been fairly [...] 100 mg 3 times daily. 3. Continue Medora 7.5/325 mg 3 times daily as needed. 4. We are going to defer the patient's urine drug screening that was suppose to be randomly today since she is quite ill and fatigued. We will plan to repeat that randomly in the future visits. 5. Continue Movantik 25 mg daily as needed. 6. Continue Robaxin 750 mg 3 times daily as needed. 7. I have encouraged the patient to continue a healthy diet and a home exercise program. 8. I have educated the patient to use non-pharmacologic measures to alleviate pain prior to using as needed opioid medication such as heat, ice, rest, relaxation, repositioning, exercise, stretches, TENS unit and/or massage. 9. We are going to see the patient back in 1 month to re-evaluate. 10. The assessment and plan for today's visit have been reviewed by Dr. Krishna, however, I have prescribed the medications for this patient's treatment plan today. /[id number] FLOYD Mullins/MIRIAN / PITA / MODL CC: MD Nneka Alcantar APRN Electronically signed by Humera [facility] Conversion Colliery Clerk Cerner at 02/18/2023 4:48 PM CDT documented in this encounter Plan of Treatment Not on file documented as of this encounter Visit Diagnoses Not on filedocumented in this encounter
--- OUTSIDE RECORDS SUMMARY | 2025-06-11 10:12 | XMS_ITS | Encounter Summary ---
Author Organization [employer] ([place], [place], [place], [place]) Address [address] [place] [address] Care Team Providers Care Risk Officer Name Role Phone Unavailable Primary Care Provider Unavailabl e Encounter Details Date Type Department Care Team (Late st Contact Info) Description 12/15/2019 Transcribed Document [facility] [place] [address] ProviderDarrell MD [address] [place] [id number] Social History Tobacco Use Types Packs/Day Years Used Date Smoking Tobacco: Never Assessed Comments Unknown Sex and Gender Information Value Date Recorded Sex Assigned at Not on file Legal Sex Female 6:16 PM CDT Gender Identity Not on file Sexual Orientation Not on file documented as of this encounter Miscellaneous Notes * Cerner Conversion Note - Historical ProviderMD - 12/15/2019 1:46 PM ASSISTANT BROKER DATE OF ADMISSION: 12/15/2019 HISTORY OF PRESENT ILLNESS: This is a 54-year-old female with a chief complaint of chronic neck pain for several years' duration, who is here today for a followup visit. The patient reports that she continues to have neck pain as well as associated migraines. She says that she also has left shoulder pain radiating from her neck that goes down to the left arm. The patient reports that the pain is a crushing sensation. She does use cold in addition to doing stretches to help with her pain in addition to taking her medication. She is using Robaxin 750 mg 3 times daily as needed, Lyrica 100 mg three times daily, and [place] 7.5/325 mg three times daily as needed. The patient reports that she does have an appointment with Rheumatology later today. She says that she is anxious to see if she has any autoimmune factor in regard to her pain. The patient says that she is taking her medication exactly as prescribed and that the use of the medication does make her more functional. She denies any adverse effects including toxic effect, sedation, driving problems, or GI problems. REVIEW OF SYSTEMS: Constitutional, respiratory, cardiovascular, ophthalmology, gastrointestinal, genitourinary, ENT, musculoskeletal, integumentary, neurology, psychiatry, endocrine, hematology were unchanged from her last visit on November 09, 2019. PHYSICAL EXAMINATION: VITAL SIGNS: Blood pressure 159/56, weight 210, height 64 inches, heart rate 83, respiratory rate 16, O2 saturation 96%. Pain level, 5. Hours of sleep, 8. No change in [...] myofascial pain. 7. History of insomnia. 8. Multiple joint pains. 9. Chronic bilateral knee pain, secondary to osteoarthritis. 10. Opioid-induced constipation. PLAN: 1. The patient has been [...] with alcohol, or self-escalate it. 2. Continue Robaxin 750 mg 3 times daily as needed. 3. Continue Lyrica 100 mg three times daily. 4. Continue [place] 7.5/325 mg three times daily as needed. 5. I have educated the patient to use non-pharmacologic measures to alleviate pain prior to using as needed opioid medication such as heat, ice, rest, relaxation, repositioning, exercise, stretches, TENS unit and/or massage. 6. Continue Movantik 25 mg daily. 7. I have encouraged the patient to continue range of motion exercises for her neck. 8. I have encouraged the patient to attend her workup with the systems management consultant. 9. We are going to see the patient back in 1 month to re-evaluate. 10. The assessment and plan for today's visit have been reviewed by Dr. Krishna, however, I have prescribed the medications for this patient's treatment plan today. /[id number] Jazz Orta APRN PITA/AQ / PITA / MODL CC: MD Nneka Alcantar APRN Electronically signed by Humera [facility] Conversion Cia Agent Kyliener at 02/18/2023 5:04 PM CDT documented in this encounter Plan of Treatment Not on file documented as of this encounter Visit Diagnoses Not on filedocumented in this encounter
--- OUTSIDE RECORDS SUMMARY | 2025-06-11 10:12 | XMS_ITS | Encounter Summary ---
Author Organization [employer] ([place], [place], [place], [place]) Address [address] [place] [address] Care Team Providers Care Bacon Slicer Name Role Phone Unavailable Primary Care Provider Unavailabl e Encounter Details Date Type Department Care Team (Late st Contact Info) Description 10/12/2019 Transcribed Document [facility] [place] [facility] [place] [address] ProviderDarrell MD [address] [place] [id number] Social History Tobacco Use Types Packs/Day Years Used Date Smoking Tobacco: Never Assessed Comments Unknown Sex and Gender Information Value Date Recorded Sex Assigned at Not on file Legal Sex Female 6:16 PM CDT Gender Identity Not on file Sexual Orientation Not on file documented as of this encounter Miscellaneous Notes * Cerner Conversion Note - Historical ProviderMD - 10/12/2019 2:22 PM MOVIE SHOT CAMERAMAN DATE OF ADMISSION: 10/12/2019 Darshana Barr is 54-year-old female with a chief complaint of chronic neck and knee pain for several years' duration, came today for followup. The patient mentioned after we did a right knee injection, September 24, 2019. She had 100% relief of pain which is still ongoing. The patient was so pleased with that result. She was able to accomplish so many things at home and outside the house. She is still taking the hydrocodone 7.5/325 three times a day as well as Lyrica 100 mg three times a day, Robaxin 750 mg three times a day, and Movantik 25 mg take one daily. The patient had some much of help and relief. Her pain level dropped down to 0/10 on her knee. She is still having neck pain off and on, which aggravating her pain and that gave her more pain despite of her medication. She denied any side effects to her medication which include toxic effects, sedation, driving problem, or GI problem. Recently, she was ordered a CT scan to her sinuses and she is going to get the result soon. REVIEW OF SYSTEMS: Constitutional, respiratory, cardiovascular, ophthalmology, gastrointestinal, genitourinary, ENT, musculoskeletal, integumentary, neurology, psychiatry, endocrine, hematology were not changed from her last visit on September 24, 2019. PHYSICAL EXAMINATION: VITAL SIGNS: Blood pressure is 138/70, heart rate 93, respirations 16, saturation 96%, temperature 97.2. Pain level 0/10 to the knee and 4 to 5/10 to the neck. No change in physical and neurological exam. [...] radiculopathy. 4. Cervical spondylosis. 5. Long-term opioid use, on hydrocodone. 6. Multiple myofascial pain. 7. History of insomnia. 8. The patient had knee pain secondary to osteoarthritis. PLAN: 1. I am pleased with the result of the knee injection the patient had on September 24, 2019, that gave the patient 100% relief of pain which is still ongoing. The patient mentioned that her level of pain in her knee 0/10, and she was able to accomplish so many things at home and outside the house. 2. The patient has been fairly well controlled [...] to mix with alcohol, or self-escalate it. 3. Hydrocodone 7.5/325 twice a day. 4. Lyrica 100 mg three times a day. 5. Robaxin 750 mg three times a day. 6. Movantik 25 mg once a day. 7. Encouraged the patient to continue home exercise, stretching and walking. 8. I also discussed with the patient about the spinal cord stimulator and this time, I told her we will have a [employer] company that might give her more help and relief. I am going to give her education material for the spinal cord stimulator with [employer] to see if the patient can review that and then, we will discuss it in the next visit. /[id number] Pepe Krishna MD, BLAKE Pain Certified KR/AQ / KR / MODL CC: Janes Mason MD documented in this encounter Plan of Treatment Not on file documented as of this encounter Visit Diagnoses Not on filedocumented in this encounter
--- OUTSIDE RECORDS SUMMARY | 2025-06-11 10:12 | XMS_ITS | Encounter Summary ---
Author Organization [employer] ([place], [place], [place], [place]) Address [address] [place] [address] Care Team Providers Care Plate Former Name Role Phone Unavailable Primary Care Provider Unavailabl e Encounter Details Date Type Department Care Team (Late st Contact Info) Description 11/10/2019 Transcribed Document [facility] Family Medicine [address] [place] [address] ProviderDarrell MD [address] [place] [address] Social History Tobacco Use Types Packs/Day Years Used Date Smoking Tobacco: Never Assessed Comments Unknown Sex and Gender Information Value Date Recorded Sex Assigned at Not on file Legal Sex Female 6:16 PM CDT Gender Identity Not on file Sexual Orientation Not on file documented as of this encounter Miscellaneous Notes * Cerner Conversion Note - Historical ProviderMD - 11/10/2019 8:58 AM LIST OF FIRST JOB IDEAS DATE OF ADMISSION: 11/09/2019 HISTORY OF PRESENT ILLNESS: This is a 54-year-old female with a chief complaint of chronic neck pain for several years' duration who is here today for a followup visit. The patient reports that her neck pain does radiate to the left shoulder. She says her pain is at her baseline. She reports that it is mild with her pain medication, she says it is moderate without. She says that the medicine makes her more functional. She says that it does help to decrease her pain. She says when she has pain it is a burning, aching sensation as well as some pressure sensation. She says that she does home exercises in addition to taking her Alexis 3 times daily as needed and her Lyrica 3 times daily. The patient says that she is currently seeing a supervisor properties every 3 months due to some respiratory issues. The patient says that she was given the information for spinal cord stimulator at the last visit, however, she is not interested in doing the trial at this time. She says she is fairly well controlled with her current regime, and she would like to continue with that for now. She says that her pain is tolerable as long as she has her medication. She reports that she did end up getting insurance with her previous employer. She reports that she is pleased with that. She says that she does, however, have a family history of rheumatoid arthritis and that she would like to have a Rheumatology consult. She says that she has pain in multiple joint sites as well as nodes on her knuckles of both of her hands. She reports that if we could refer her to a cash management officer that she would like to be evaluated for any autoimmune disorders due to the family history and the multiple joint pains. The patient reports she takes her medication exactly as prescribed. She denies any adverse effects including toxic effect, sedation, driving problems, or GI problems. REVIEW OF SYSTEMS: Constitutional, respiratory, cardiovascular, ophthalmology, gastrointestinal, genitourinary, ENT, musculoskeletal, integumentary, neurology, psychiatry, endocrine, hematology were not changed from her last visit on October 12, 2019. PHYSICAL EXAMINATION: VITAL SIGNS: Blood pressure 145/87, weight 210, height 64 inches, heart rate 100, respiratory rate 16, O2 saturation 97%, temperature 97.4. Pain level 2. Hours of sleep 7-9. No change in physical and neurological exam. [...] Multiple joint pains. 9. Chronic bilateral knee pain secondary to osteoarthritis. PLAN: 1. The patient has been fairly [...] with alcohol, or self-escalate it. 2. Continue Alexis 7.5/325 mg 3 times daily as needed. 3. I have educated the patient to use non-pharmacologic measures to alleviate pain prior to using as needed opioid medication such as heat, ice, rest, relaxation, repositioning, exercise, stretches, TENS unit and/or massage. 4. Continue Lyrica 100 mg 3 times daily. 5. Continue Robaxin 750 mg 3 times daily as needed. 6. Continue Movantik 25 mg daily as needed. 7. I have encouraged the patient to continue a healthy diet and home exercise program. 8. I have advised the patient that when she is ready to do the spinal cord stimulator trial, we will proceed forward with that. 9. We are going to do a consult to Rheumatology with Nneka Carson APRN. 10. We are going to see the patient back in 1 month to re-evaluate. 11. The assessment and plan for today's visit have been reviewed by Dr. Krishna, however, I have prescribed the medications for this patient's treatment plan today. /[id number] DICTATED BY: Jazz Orta APRN for Pepe Krishna MD, BLAKE Pain Certified Pepe Krishna MD, BLAKE Pain Certified PITA/AQ / PITA / MODL CC: FLOYD Lazo MD Electronically signed by [facility], [facility] Conversion Supervisor Aluminum Fabrication Cerner at 02/18/2023 5:00 PM CDT documented in this encounter Plan of Treatment Not on file documented as of this encounter Visit Diagnoses Not on filedocumented in this encounter
--- OUTSIDE RECORDS SUMMARY | 2025-06-11 10:12 | XMS_ITS | Referral Summary ---
Author Organization [employer] ([place], [place], [place], [place]) Address [address] [place] [address] Care Team Providers Care Call Worker Name Role Phone Unavailable Primary Care [...] HYDROcodone-elaine taminophen (NORCO) 5-325 mg per tablet Beverly 5 mg-325 mg tablet Take 1 tablet [...] 10/08/2024 10:29 AM EST Plan of Treatment Not on file Insurance MEDICARE PART A B /[facility] Member Subscriber Plan / Payer (Ef fective 2023-Present) Name:Darshana Barr Relation to Subscriber:Self Name:Darshana Barr Payer ID:Not on file Group ID:[id number] Type:Not on file Address: [facility] [id number] [place] [id number]
--- OUTSIDE RECORDS SUMMARY | 2025-06-11 10:12 | XMS_ITS | Encounter Summary ---
Author Organization Healthcare Address [address] [place] [address] Care Team Providers Care Soldering Machine Setter Name Role Phone Janes Mason MD Primary Care Provider Encounter Details Date Type Department Care Team (Late st Contact Info) Description 02/28/2023 [facility] [address] [place] [phone] Bud Shea MD [address] [facility], [address] [address] Other headache syndrome (Primary Dx) Social History [...] Primary documented in this encounter Care Teams Soldering Machine Setter Relationship Specialty Start Date End Date Janes Mason MD [address] [place] [address] PCP - General 03/17/21 documented as of this encounter
--- OUTSIDE RECORDS SUMMARY | 2025-06-11 10:12 | XMS_ITS | Encounter Summary ---
Author Organization [employer] ([place], [place], [place], [place]) Address [address] [place] [address] Care Team Providers Care Quality Control Scientist Name Role Phone Unavailable Primary Care Provider Unavailabl e Encounter Details Date Type Department Care Team (Late st Contact Info) Description 08/17/2019 Transcribed Document [facility] Family Medicine [facility] [address] ProviderDarrell MD [address] [place] [address] Social History Tobacco Use Types Packs/Day Years Used Date Smoking Tobacco: Never Assessed Comments Unknown Sex and Gender Information Value Date Recorded Sex Assigned at Not on file Legal Sex Female 6:16 PM CDT Gender Identity Not on file Sexual Orientation Not on file documented as of this encounter Miscellaneous Notes * Cerner Conversion Note - Historical ProviderMD - 08/17/2019 2:02 PM CDT DATE OF ADMISSION: 08/17/2019 HISTORY OF PRESENT ILLNESS: This is a 54-year-old female with a chief complaint of chronic neck pain radiated to upper extremity came today for followup. The patient had good response to the cervical epidural steroid injection and facet injection. However, she mentioned that recently her neck started bothering her with the radiation of the pain to the left more than the right and she work up with her hand it is hurting her as a new pain. Recently, she is using inhalers from her family physician. She had good response to her medication. She has taken the hydrocodone 7.5/325, 3 times a day as well as Lyrica 100 mg 3 times a day and she mentioned that she had good response to the medication, she was able to accomplish so many thing at home and outside the house. She denied any major side effect to her medication, which include toxic effect, sedation, driving problem, or GI problem. REVIEW OF SYSTEMS: Constitutional, Respiratory, Cardiovascular, Ophthalmology, Gastrointestinal, Genitourinary, ENT, Musculoskeletal, Integumentary, Neurology, Psychiatry, Endocrine, Hematology were not changed from her last visit on July 17, 2019. PHYSICAL EXAMINATION: Blood pressure 131/63, heart rate is 80, respiration 16, saturation 97%, temperature 96.8. Pain level 3. Hours of sleep 9. No change in physical [...] joint disease and degenerative disk disease to cervical spine. 2. Cervical radiculopathy. 3. Cervical spondylosis. 4. Long-term opioid use. 5. Failed neck surgery. 6. Long-term opioid use on hydrocodone. 7. Multiple myofascial pain. 8. History of insomnia. PLAN: 1. We are going to continue with hydrocodone 7.5/325 mg 3 times a day. 2. The patient has been fairly well [...] mix with alcohol, or self-escalate it. 3. Lyrica 100 mg 3 times a day. 4. Robaxin 750 mg 3 times a day. 5. Trazodone 25-50 mg at bedtime. 6. Movantik 25 mg once a day. 7. I had lengthy discussion with the patient also about her feeling sleepy during the day and I asked whether or not she has sleep apnea, the patient mentioned she does not have sleep apnea, but she is going to have more study about that she is feeling more sleepy during the day and her daughter is going to do more of that studies and a sleep specialist. I mentioned to her that I need copy of that, so I can go over that with her in the future. 8. The patient also has some recent problem related to allergy. She is not a smoker, so she is going to have more allergy test with the specialist and recently placed her on inhaler. I encouraged her to continue followup with them. 9. I am going to see the patient after one month to re-evaluate her. Pepe Krishna M.D., BLAKE Pain Certified Dict: 08/17/2019 14:02:05 Trans: 08/17/2019 16:00:23 CC1: Pepe Krishna M.D., BLAKE Pain Certified CC2: Dr. Janes Mason Electronically signed by [facility] Conversion Vocational Director Cerner at 02/18/2023 4:52 PM CDT documented in this encounter Plan of Treatment Not on file documented as of this encounter Visit Diagnoses Not on filedocumented in this encounter
--- OUTSIDE RECORDS SUMMARY | 2025-06-11 10:12 | XMS_ITS | Clinical Summary ---
Author Organization [facility] Address [address] [place] [address] Care Team Providers Care Insurance Instructor Name Role Phone Janes Mason MD Primary Care Provider [phone] Allergies Active Allergy Reactions Criticality Noted Date [...] (Shingrix) (1 of 2) 2017 INFLUENZA VACCINE (#1) 2025 HEP A VACCINE Aged Out No longer elig ible based on patient's age to complete this topic HIB VACCINE Aged Out No longer eligi ble based on patient's age to complete this topic ROTOVIRUS VACCINE Aged Out No longer eligible based on patient's age to complete this topic Insurance Care Teams Insurance Instructor Relationship Specialty Start Date End Date Janes Mason MD [address] [place] [address] PCP - General Family Medicine 11/13/12
[2025-06-11] MEDS: BENRALIZUMAB 30 MG SUBCUT (10:23)
[2025-06-11 10:25] VITALS: BP 118/69; PULSE 82; RESP 17; O2SAT 97
== END 2025-06-11 10:43 | disposition home or self-care (01) ==
LOC: INF 10:09
PROVIDERS: PCP Family Medicine; Visit Provider Internal Medicine Pulmonary Disease
DX: D72.10 Eosinophilia, unspecified (principal)
CPT/HCPCS: 96372; J0517

== ENCOUNTER 2025-07-09 09:48 | Outpatient (CLI) | payer MEDICARE, BC, SELFPAY ==
--- OUTSIDE RECORDS SUMMARY | 2021-10-13 10:53 | XMS_ITS | Encounter Summary ---
[facility] Address [address] [place] [address] Care Team Providers Care Lapping Machine Set Up Operator Name Role Phone Janes Mason MD Primary Care Provider [phone] Reason for Visit * Diagnostic Imaging (Routine) - Closed Specialty Diagnoses / Procedures Referred By Contac t Referred To Contact Radiology Diagnoses Nontoxic multinodular goiter Procedures US Thyroid Raeann Carlson MD [address] [place] [address] Phone: tel: fax: [facility] [address] [place] [phone] Phone: tel: fax: Referral ID Status Reason Start Date Expiration Date Visits Re quested Visits Authorized [id number] Closed 10/13/2021 10/13/2022 1 1 Encounter Details Date Type Department Care Team (Late st Contact Info) Description 10/13/2021 9:53 AM EST Hospital Encounter [facility] [address] [place] [phone] Social History Tobacco Use Types Packs/Day [...] on filedocumented in this encounter Care Teams Lapping Machine Set Up Operator Relationship Specialty Start Date End Date Janes Mason MD [address] [place] [address] PCP - General Family Medicine 07/11/21 documented as of this encounter
--- OUTSIDE RECORDS SUMMARY | 2025-07-09 09:51 | XMS_ITS | Encounter Summary ---
Author Organization [employer] ([place], [place], [place], [place]) Address [address] [place] [address] Care Team Providers Care Junior Sales Assistant Name Role Phone Unavailable Primary Care Provider Unavailabl e Encounter Details Date Type Department Care Team (Late st Contact Info) Description 10/17/2020 Transcribed Document [facility] [place] [address] ProviderDarrell MD [address] [place] [phone] Social History Tobacco Use Types Packs/Day Years Used Date Smoking Tobacco: Never Assessed Comments Unknown Sex and Gender Information Value Date Recorded Sex Assigned at Not on file Legal Sex Female 6:16 PM CDT Gender Identity Not on file Sexual Orientation Not on file documented as of this encounter Miscellaneous Notes * [employer]ner Conversion Note - Historical ProviderMD - 10/17/2020 11:14 PM INSULATION BATTING MACHINE OPERATOR ED Discharge Entered On: 10/17/2020 23:14 EST [...] Jeannette Fuller RN - 10/17/2020 23:14 EST Electronically signed by Paul Grubbs Conversion Interactive Media Marketing Specialist Cerner at 02/18/2023 4:56 PM CDT documented in this encounter Plan of Treatment Not on file documented as of this encounter Visit Diagnoses Not on filedocumented in this encounter
--- OUTSIDE RECORDS SUMMARY | 2025-07-09 09:51 | XMS_ITS ---
Laboratory report Created on: July 07, 2025 FERMIN DEVRIES : 1965 Sex: Female Author Organization Unknown PROBLEMS Problems List Code Description RESULTS Laboratory Orders Date Order Code Test 2025-06-29 [id number] [facility] [place] Laboratory Results Date LOINC Test Value Unit Reference Range Interpretation 2161-8 CREATININE 144 MG/DL 92740-8 SUMMARY REPORT (SUMMARY) FINAL 98046-6 PDF IMAGE 91249-4 ALCOHOL, ETHYL N 87045-0 ALCOHOL, ETHYL NOTDET G/DL 42240-9 AMPHETAMINES N 06579-5 METHAMPHETAMINE NOTDET NG/MG CREAT 24774-6 AMPHETAMINE NOTDET NG/MG CREAT 37356-9 MDMA (ECSTASY) NOTDET NG/MG CREAT 61517-1 MDA (ECSTASY METABOLITE) NOTDET NG/MG CREAT 82184-0 BENZODIAZEPINES MX++PO 29468-7 DIAZEPAM NOTDET NG/MG CREAT 53471-4 DESMETHYLDIAZEPAM NOTDET NG/MG CREAT 87630-1 OXAZEPAM NOTDET NG/MG CREAT 25379-0 TEMAZEPAM NOTDET NG/MG CREAT 78336-9 ALPRAZOLAM 22 NG/MG CREAT 82814-3 ALPHA-HYDROXYALPRAZOLAM 34 NG/MG CREAT 21987-2 DESALKYLFLURAZEPAM NOTDET NG/MG CREAT 82786-5 LORAZEPAM NOTDET NG/MG CREAT 18282-0 ALPHA-HYDROXYTRIAZOLAM NOTDET NG/MG CREAT 45475-0 CLONAZEPAM NOTDET NG/MG CREAT 77665-5 7-AMINOCLONAZEPAM NOTDET NG/MG CREAT 02196-2 MIDAZOLAM NOTDET NG/MG CREAT 75364-6 ALPHA-HYDROXYMIDAZOLAM NOTDET NG/MG CREAT 04456-0 FLUNITRAZEPAM NOTDET NG/MG CREAT 82715-3 DESMETHYLFLUNITRAZEPAM NOTDET NG/MG CREAT 94874-3 COCAINE + METABOLITE N 52656-9 COCAINE NOTDET NG/MG CREAT 27770-7 BENZOYLECGONINE NOTDET NG/MG CREAT 16062-7 COCAETHYLENE NOTDET NG/MG CREAT 20736-7 6-ACETYLMORPHINE N 61809-1 6-ACETYLMORPHINE NOTDET NG/MG CREAT 93090-0 OPIATE CLASS MX++PO 82693-2 CODEINE NOTDET NG/MG CREAT 54092-1 MORPHINE NOTDET NG/MG CREAT 29477-3 NORMORPHINE NOTDET NG/MG CREAT 93013-5 NORCODEINE NOTDET NG/MG CREAT 86125-4 HYDROCODONE 1696 NG/MG CREAT 46374-0 HYDROMORPHONE 373 NG/MG CREAT 00793-9 DIHYDROCODEINE 493 NG/MG CREAT 60752-0 NORHYDROCODONE 1188 NG/MG CREAT 43132-7 OXYCODONE CLASS N 48652-7 OXYCODONE NOTDET NG/MG CREAT 74978-7 OXYMORPHONE NOTDET NG/MG CREAT 14770-3 NOROXYCODONE NOTDET NG/MG CREAT 92781-5 NOROXYMORPHONE NOTDET NG/MG CREAT 33528-6 FENTANYL & ANALOGUES N 76237-3 FENTANYL NOTDET NG/MG CREAT 97744-7 NORFENTANYL NOTDET NG/MG CREAT 37606-7 SUFENTANIL NOTDET NG/MG CREAT 03849-9 ALFENTANIL NOTDET NG/MG CREAT 49539-4 BUPRENORPHINE N 38295-6 BUPRENORPHINE NOTDET NG/MG CREAT 50760-8 NORBUPRENORPHINE NOTDET NG/MG CREAT 39523-0 METHADONE N 14966-1 METHADONE NOTDET NG/MG CREAT 90116-1 EDDP (METHADONE MTB) NOTDET NG/MG CREAT 42128-5 TAPENTADOL N 42108-5 TAPENTADOL NOTDET NG/MG CREAT 37900-6 OTHER OPIOIDS N 54715-9 NALTREXONE NOTDET 58608-4 NALBUPHINE NOTDET 12677-3 BUTORPHANOL NOTDET 09415-6 MEPERIDINE NOTDET 47749-3 NORMEPERIDINE NOTDET 37146-8 PENTAZOCINE NOTDET 37243-6 PROPOXYPHENE NOTDET 49521-8 NORPROPOXYPHENE NOTDET 33525-6 TRAMADOL NOTDET NG/MG CREAT 77870-6 O-DESMETHYLTRAMADOL NOTDET NG/MG CREAT 72554-2 N-DESMETHYLTRAMADOL NOTDET NG/MG CREAT 82739-6 CANNABINOIDS N 31818-2 CARBOXY-THC NOTDET NG/MG CREAT PENDING OTHER HALLUCINOGENS N 98563-3 KETAMINE NOTDET 20722-7 NORKETAMINE NOTDET 64807-6 PHENCYCLIDINE NOTDET 62691-1 BARBITURATES N 05767-5 AMOBARBITAL NOTDET 61695-4 BARBITAL NOTDET 73420-0 BUTABARBITAL NOTDET 32863-0 BUTALBITAL NOTDET 47237-1 MEPHOBARBITAL NOTDET 13137-0 PENTOBARBITAL NOTDET 36206-1 PHENOBARBITAL NOTDET 94714-9 SECOBARBITAL NOTDET 19458-0 THIOPENTAL NOTDET 26798-1 SYMPATHOMIMETICS N 80748-0 MDEA NOTDET 3596-4 EPHEDRINE/PSEUDOEPHEDRINE NOTDET 76262-2 ATOMOXETINE NOTDET 95418-8 DIETHYLPROPION NOTDET 80537-7 METHYLPHENIDATE NOTDET 61662-9 RITALINIC ACID NOTDET 41336-9 PHENMETRAZINE NOTDET 61731-7 PHENTERMINE NOTDET 3965-1 PHENYLPROPANOLAMINE NOTDET 13309-1 METHCATHINONE NOTDET PENDING ANTICONVULSANTS N 85217-7 CARBAMAZEPINE NOTDET 93718-2 CLOBAZAM NOTDET PENDING EZOGABINE NOTDET 39304-6 GABAPENTIN NOTDET 49510-7 PREGABALIN NOTDET 19839-9 LEVETIRACETAM NOTDET 35083-4 OXCARBAZEPINE MHD NOTDET 19651-7 PHENYTOIN NOTDET 76781-9 PRIMIDONE NOTDET 00031-4 RUFINAMIDE NOTDET 83660-4 TIAGABINE NOTDET 37870-9 TOPIRAMATE NOTDET 44087-1 ZONISAMIDE NOTDET 28796-4 LAMOTRIGINE NOTDET PENDING MUSCLE RELAXANTS MX++PO 59642-1 BACLOFEN NOTDET 23123-7 CARISOPRODOL NOTDET 34292-2 MEPROBAMATE NOTDET 64455-0 CYCLOBENZAPRINE NOTDET 03407-2 DESMETHYLCYCLOBENZAPRINE NOTDET 32183-3 TIZANIDINE NOTDET PENDING METAXALONE NOTDET 3791-1 METHOCARBAMOL MXPRES 28013-9 ORPHENADRINE NOTDET 21000-2 SEDATIVE/HYPNOTICS N 12341-0 ZOLPIDEM NOTDET 51362-8 ZOLPIDEM ACID NOTDET 27955-3 ZOPICLONE/ESZOPICLONE NOTDET AMINO CHLOROPYRIDINE NOTDET PENDING ZALEPLON NOTDET 32264-0 ANTIDEPRESSANTS MX++PO 37344-2 AMITRIPTYLINE NOTDET 3342-3 AMOXAPINE NOTDET 49926-5 8-HYDROXYAMOXAPINE NOTDET 32352-7 BUPROPION NOTDET 79062-7 HYDROXYBUPROPION NOTDET 44550-2 CITALOPRAM NOTDET 14173-8 DESMETHYLCITALOPRAM NOTDET 88453-5 CLOMIPRAMINE NOTDET DESMETHYLCLOMIPRAMINE NOTDET 72264-3 DESIPRAMINE NOTDET 52254-0 DOXEPIN NOTDET 04791-8 DESMETHYLDOXEPIN NOTDET 81019-5 DULOXETINE NOTDET 66533-7 FLUOXETINE MXPRES 12019-5 NORFLUOXETINE MXPRES 13433-2 FLUVOXAMINE NOTDET 88758-8 IMIPRAMINE NOTDET 38436-9 MIRTAZAPINE NOTDET 75230-5 NORTRIPTYLINE NOTDET 57383-8 PAROXETINE NOTDET 4001-4 PROTRIPTYLINE NOTDET 25900-3 SERTRALINE NOTDET 50893-7 DESMETHYLSERTRALINE NOTDET 3737-4 MAPROTILINE NOTDET 96173-3 NEFAZODONE NOTDET 4065-9 TRAZODONE NOTDET 35885-1 1,3 CHLOROPHENYL PIPERAZINE NOTDET 4084-0 TRIMIPRAMINE NOTDET 39878-4 VENLAFAXINE NOTDET 24257-6 DESMETHYLVENLAFAXINE NOTDET 22187-2 VILAZODONE NOTDET PENDING ANTIPSYCHOTICS N 18720-5 CHLORPROMAZINE NOTDET 24055-1 CLOZAPINE NOTDET 14686-6 DESMETHYLCLOZAPINE NOTDET 3729-1 LOXAPINE NOTDET PENDING 8-HYDROXYLOXAPINE NOTDET 04512-4 MESORIDAZINE NOTDET 40227-5 OLANZAPINE NOTDET 76296-4 QUETIAPINE NOTDET 62471-5 RISPERIDONE NOTDET 58249-2 FLUPHENAZINE NOTDET 52402-8 HALOPERIDOL NOTDET 23372-4 THIORIDAZINE NOTDET PENDING MOLINDONE NOTDET PENDING PIMOZIDE NOTDET 72440-5 THIOTHIXENE NOTDET 3510-5 PROCHLORPERAZINE NOTDET 54976-6 TRIFLUOPERAZINE NOTDET PENDING ZIPRASIDONE NOTDET 17586-6 PERPHENAZINE NOTDET PENDING ARIPIPRAZOLE NOTDET ASENAPINE NOTDET ILOPERIDONE NOTDET 23857-5 LURASIDONE NOTDET 25265-0 ANALGESICS/NSAIDS MX++PO 3299-5 ACETAMINOPHEN MXPRES PENDING DICLOFENAC NOTDET 38427-0 IBUPROFEN NOTDET PENDING KETOPROFEN NOTDET PENDING NAPROXEN NOTDET PENDING OXAPROZIN NOTDET 4025-3 SALICYLATE NOTDET 30463-5 ANTIHISTAMINES N 3408-2 BROMPHENIRAMINE NOTDET 50656-1 CHLORPHENIRAMINE NOTDET 3571-7 DIPHENHYDRAMINE NOTDET 3586-5 DOXYLAMINE NOTDET 22479-8 HYDROXYZINE NOTDET 23609-5 PROMETHAZINE NOTDET 4009-7 PYRILAMINE NOTDET PENDING TRIPROLIDINE NOTDET PENDING LOCAL ANESTHETICS N PENDING BUPIVACAINE NOTDET 3716-8 LIDOCAINE NOTDET 51419-0 MEPIVACAINE NOTDET 12971-6 PROCAINE NOTDET 54033-8 MISCELLANEOUS N 44858-1 BENZTROPINE NOTDET 3423-1 CAFFEINE NOTDET 07388-9 CLONIDINE NOTDET 3539-4 DEXTROMETHORPHAN NOTDET 44764-8 DEXTRORPHAN/LEVORPHANOL NOTDET PENDING GUAIFENESIN NOTDET 3816-6 METOPROLOL NOTDET PENDING MILNACIPRAN NOTDET 61450-3 DILTIAZEM NOTDET 3993-3 PROPRANOLOL NOTDET 3360-5 ATENOLOL NOTDET 44525-5 THEOPHYLLINE NOTDET 4095-6 VERAPAMIL NOTDET
--- OUTSIDE RECORDS SUMMARY | 2025-07-09 09:51 | XMS_ITS | Encounter Summary ---
Author Organization [employer] ([place], [place], [place], [place]) Address [address] [place] [address] Care Team Providers Care Medical Front Desk Specialist Name Role Phone Unavailable Primary Care Provider Unavailabl e Encounter Details Date Type Department Care Team (Late st Contact Info) Description 10/17/2020 Transcribed Document [facility] [place] Family [place] [facility] [place] [address] ProviderDarrell MD [address] [place] [address] Social History Tobacco Use Types Packs/Day Years Used Date Smoking Tobacco: Never Assessed Comments Unknown Sex and Gender Information Value Date Recorded Sex Assigned at Not on file Legal Sex Female 6:16 PM CDT Gender Identity Not on file Sexual Orientation Not on file documented as of this encounter Miscellaneous Notes * [employer]ner Conversion Note - Historical ProviderMD - 10/17/2020 4:38 PM MONITORING AND EVALUATION ADVISOR [place] Violence Assessment Entered On: 10/17/2020 22:43 [...]
--- OUTSIDE RECORDS SUMMARY | 2025-07-09 09:51 | XMS_ITS | Encounter Summary ---
Author Organization [employer] ([place], [place], [place], [place]) Address [address] [place] [address] Care Team Providers Care Medical Physics Professor Name Role Phone Unavailable Primary Care Provider Unavailabl e Encounter Details Date Type Department Care Team (Late st Contact Info) Description 10/17/2020 Transcribed Document [facility] [place] Family Medicine [facility] [place] [address] ProviderDarrell MD [address] [place] [address] Social History Tobacco Use Types Packs/Day Years Used Date Smoking Tobacco: Never Assessed Comments Unknown Sex and Gender Information Value Date Recorded Sex Assigned at Not on file Legal Sex Female 6:16 PM CDT Gender Identity Not on file Sexual Orientation Not on file documented as of this encounter Miscellaneous Notes * Cerner Conversion Note - Historical ProviderMD - 10/17/2020 4:38 PM WET SUIT GLUER ED Assessment Entered On: 10/17/2020 22:43 EST [...] (Last Updated: 11/06/2016 11:34:18 EST by Tracey Mathews, ALFRED) Home/Environment: Lives with Children, Spouse. [...] Rhythm : Regular Nail Bed Color : [place] Chest Pain : Yes Neck Vein Distention [...]
--- OUTSIDE RECORDS SUMMARY | 2025-07-09 09:51 | XMS_ITS | Encounter Summary ---
Author Organization [employer] ([place], [place], [place], [place]) Address [address] [place] [address] Care Team Providers Care Deposit Refund Clerk Name Role Phone Unavailable Primary Care Provider Unavailabl e Encounter Details Date Type Department Care Team (Late st Contact Info) Description 08/04/2020 Transcribed Document [facility] [place] Family Medicine [address] [place] [address] ProviderDarrell MD [address] [place] [address] Social History Tobacco Use Types Packs/Day Years [...] visit and the patient has been afebrile. /[id number] Pepe Krishna MD, BLAKE Pain Certified EN/MIRIAN / EN / MODL CC: Dr. Janes Mason Electronically signed by [facility], [facility] Conversion Automobile Mechanic Apprentice Cerner at 02/18/2023 4:48 PM CDT documented in this encounter Plan of Treatment Not on file documented as of this encounter Visit Diagnoses Not on filedocumented in this encounter
--- OUTSIDE RECORDS SUMMARY | 2025-07-09 09:51 | XMS_ITS | Encounter Summary ---
Author Organization [employer] ([place], [place], [place]) Address [address] [place] [address] Care Team Providers Care Dredge Pump Operator Name Role Phone Unavailable Primary Care Provider Unavailabl e Encounter Details Date Type Department Care Team (Late st Contact Info) Description 03/14/2020 Transcribed Document [facility] [place] [facility] [address] ProviderDarrell MD [address] [place] [address] Social History Tobacco Use Types Packs/Day Years [...] also trying to wean herself off her [place] by doing one-half tablet at a time. [...] it. 2. We are going to continue [place] 7.5/325 mg three times daily as needed. [...] medications for this patient's treatment plan today. /[id number] Jazz FLOYD Church/MIRIAN / PITA / MODL CC: FLOYD Lazo MD Electronically signed by [facility], [facility] Conversion Catering Truck Operator Cerner at 02/18/2023 5:02 PM CDT documented in this encounter Plan of Treatment Not on file documented as of this encounter Visit Diagnoses Not on filedocumented in this encounter
--- OUTSIDE RECORDS SUMMARY | 2025-07-09 09:51 | XMS_ITS | Encounter Summary ---
Author Organization [employer] ([place], [place], [place], [place]) Address [address] [place] [address] Care Team Providers Care Records And Information Manager Name Role Phone Unavailable Primary Care Provider Unavailabl e Encounter Details Date Type Department Care Team (Late st Contact Info) Description 09/02/[address] [facility] [place] [address] [place] [address] ProviderDarrell MD [address] [place] [address] Social History Tobacco Use Types Packs/Day Years [...] help with the pain. She is taking Blue 3 times daily as needed and Lyrica [...] with alcohol, or self-escalate it. 2. Continue Blue 7.5/325 mg 3 times daily as needed. [...] visit and the patient has been afebrile. /[id number] FLOYD Mullins/MIRIAN / PITA / MODL CC: Janes Mason MD documented in this encounter Plan of Treatment Not on file documented as of this encounter Visit Diagnoses Not on filedocumented in this encounter
--- OUTSIDE RECORDS SUMMARY | 2025-07-09 09:51 | XMS_ITS | Encounter Summary ---
Author Organization [employer] ([place], [place], [place], [place]) Address [address] [place] [address] Care Team Providers Care Senior Mechanical Design Engineer Name Role Phone Unavailable Primary Care Provider Unavailabl e Encounter Details Date Type Department Care Team (Late st Contact Info) Description 10/17/2020 Transcribed Document [facility] [place] [facility] [place] [address] ProviderDarrell MD [address] [place] [address] Social History Tobacco Use Types Packs/Day Years Used Date Smoking Tobacco: Never Assessed Comments Unknown Sex and Gender Information Value Date Recorded Sex Assigned at Not on file Legal Sex Female 6:16 PM CDT Gender Identity Not on file Sexual Orientation Not on file documented as of this encounter Miscellaneous Notes * Cerner Conversion Note - Historical ProviderMD - 10/17/2020 10:58 PM LAUNDRY HOUSEKEEPING AIDE Electronically signed by [facility] Conversion Hebrew Teacher Cerner at 02/18/2023 4:55 PM CDT documented in this encounter Plan of Treatment Not on file documented as of this encounter Visit Diagnoses Not on filedocumented in this encounter
--- OUTSIDE RECORDS SUMMARY | 2025-07-09 09:51 | XMS_ITS | Patient Health Record ---
Author Organization [facility] Address [address] [place] [address] Care Team Providers Care Loading Dock Hand Name Role Phone Ilan Caballero [phone] Allergies Allergen (clinical drug ingredient) Drug/Non Drug [...] Risk Notes Problem Cervical spondylosis without myelopathy (695982375) Cervical spondylosis without myelopathy (M47.812) Active confirmed Problem Cervical post-laminectom y syndrome (606608110) Cervical post-laminectomy syndrome (M96.1) Active confirmed Problem Cervical spondylosis without myelopathy (924268456) Cervical spondylosis with radiculopathy (M47.22) Active confirmed Plan Of Treatment No Information Insurance Providers Payer Name Payer Address Payer Phone Subscriber Number Group Number Insured Name Patient Relationship to Insured Coverage Start Date Coverage End Date ARACELI [employer]UE [employer]OSS [address] [place] [address] [id number] Darshana Barr Self - patient is the insured Medicare CGS Administrators [address] [address] [place] [address] [id number] Darshana Barr Self - patient is the insured 0 [place] [employer] [address] [place] [address] [id number] Darshana Barr Self - patient is the insured 0 Medical (General) History Medical History History ICD Code ALLERGIES ARTHRITIS ASTHMA DEPRESSION/ANXIETY EMPHYSEMA/COPD HIGH CHOLESTEROL THYROID DISEASE Surgical History Surgery Date(Month/Year) GALLBLADDER/APPENDIX 1991 TOTAL HYSTERECTOMY 2010 CERVICAL SURGERY C5-7 2017 SCS ABORTED DUE TO SCAR TISSUE 2018 Hospitalization History Reason Date(Month/Year) DOUBLE PNEUMONIA 2018 SEPTIC SHOCK 10/2020
--- OUTSIDE RECORDS SUMMARY | 2025-07-09 09:51 | XMS_ITS | Encounter Summary ---
Author Organization [employer] ([place], [place], [place], [place]) Address [address] [place] [address] Care Team Providers Care Elementary Educator Name Role Phone Unavailable Primary Care Provider Unavailabl e Encounter Details Date Type Department Care Team (Late st Contact Info) Description 10/04/2020 Transcribed Document [facility] [place] [facility] [address] ProviderDarrell MD [address] [place] [address] Social History Tobacco Use Types Packs/Day Years Used Date Smoking Tobacco: Never Assessed Comments Unknown Sex and Gender Information Value Date Recorded Sex Assigned at Not on file Legal Sex Female 6:16 PM CDT Gender Identity Not on file Sexual Orientation Not on file documented as of this encounter Miscellaneous Notes * Cerner Conversion Note - Historical ProviderMD - 10/04/2020 4:06 PM COUNTY SUPERVISOR DATE OF ADMISSION: 10/04/2020 HISTORY OF [...] is also using Cymbalta and taking her [place] 3 times daily. She says that she is also using Robaxin as needed and taking her Lyrica 3 times daily. The patient says that she really needs to have the [place] dosage 4 times daily. She says that [...] not to take the Lyrica and the [place] at the same time but alternate those. [...] visit and the patient has been afebrile. /[id number] FLOYD Mullins/MIRIAN / PITA / MODL CC: REYES (REF) MD AUDIE documented in this encounter Plan of Treatment Not on file documented as of this encounter Visit Diagnoses Not on filedocumented in this encounter
--- OUTSIDE RECORDS SUMMARY | 2025-07-09 09:51 | XMS_ITS | Clinical Summary ---
Author Organization [facility] Address [address] [id number] Care Team Providers Care Global Category Manager Name Role Phone Janes Mason MD Primary Care Provider [phone] Social History Tobacco Use Types Packs/Day Years Used Date Smoking Tobacco: Never Assessed Comments Unknown Sex and Gender Information Value Date Recorded Sex Assigned at Not on file Legal Sex Female 7:11 PM EDT Gender Identity Not on file Sexual Orientation Not on file Plan of Treatment Health Maintenance Due Date Last Done Comments [facility]-Depression Screening 1965 [facility]-/Child/Adol SDOH Screenings 1965 [facility]- SDOH Screenings 1985 [...] (2 of 2 - PPSV23) 10/24/2019 10/24/2018 [id number] Vaccine ( season) 2024 09/14/2021, 02/24/2021, 01/10/2021 [...] patient's age to complete this topic Insurance [facility] [place] [address] Care Teams Global Category Manager Relationship Specialty Start Date End Date Janes Mason MD [address] [place] [address] PCP - General 03/17/21
--- OUTSIDE RECORDS SUMMARY | 2025-07-09 09:51 | XMS_ITS | Encounter Summary ---
Author Organization [employer] ([place], [place], [place], [place]) Address [address] [place] [address] Care Team Providers Care Harp Repairer Name Role Phone Unavailable Primary Care Provider Unavailabl e Encounter Details Date Type Department Care Team (Late st Contact Info) Description 06/27/2020 Transcribed Document [facility] [place] [facility] [place] [address] ProviderDarrell MD [address] [place] [address] Social History Tobacco Use Types Packs/Day Years [...] possible. The patient is also taking her [place] 3 times daily as needed and her [...] dose. She has voiced understanding. 3. Continue [place] 7.5/325 mg 3 times daily as needed. [...] visit and the patient has been afebrile. /[id number] DICTATED BY: aJzz Orta APRN for Pepe Krishna MD, BLAKE Pain Certified Pepe Krishna MD, BLAKE Pain Certified PITA/AQ / PITA / MODL CC: REYES (REF) MD AUDIE documented in this encounter Plan of Treatment Not on file documented as of this encounter Visit Diagnoses Not on filedocumented in this encounter
--- OUTSIDE RECORDS SUMMARY | 2025-07-09 09:51 | XMS_ITS | Encounter Summary ---
Author Organization [employer] ([place], [place], [place]) Address [address] [place] [address] Care Team Providers Care Chief Psychologist Name Role Phone Unavailable Primary Care Provider Unavailabl e Encounter Details Date Type Department Care Team (Late st Contact Info) Description 10/17/2020 Transcribed Document [facility] [place] [address] ProviderDarrell MD [address] [place], [place] [address] Social History Tobacco Use Types Packs/Day Years Used Date Smoking Tobacco: Never Assessed Comments Unknown Sex and Gender Information Value Date Recorded Sex Assigned at Not on file Legal Sex Female 6:16 PM CDT Gender Identity Not on file Sexual Orientation Not on file documented as of this encounter Miscellaneous Notes * Cerner Conversion Note - Historical ProviderMD - 10/17/2020 8:40 PM TAX AUDIT MANAGER ED Event Note Entered On: 10/17/2020 20:40 [...]
--- OUTSIDE RECORDS SUMMARY | 2025-07-09 09:51 | XMS_ITS | Encounter Summary ---
Author Organization [employer] ([place], [place], [place], [place]) Address [address] [place] [address] Care Team Providers Care Installer Apprentice Name Role Phone Unavailable Primary Care Provider Unavailabl e Encounter Details Date Type Department Care Team (Late st Contact Info) Description 02/15/2020 Transcribed Document [facility] [place] [address] [place] [address] ProviderDarrell MD [address] [place] [address] Social History Tobacco Use Types Packs/Day Years [...] following up for medication refills of her [place] and gabapentin. She reports that she is having pain in the left side of her neck. She says the pain never changes. She reports that the pain is qeoh-zi-phdjvzso at times. She says that the pain does radiate to the left shoulder. She reports that her pain is an aching sensation. She says she does have associated symptoms of depression and fatigue. She is using cold in addition to taking her Lyrica and [place] as prescribed. The patient says she does [...] and tooth loss. She says that the civil preparedness coordinator did say she was negative for Sjogren's but she does have an elevated ESR. The patient says that she does have a lacquer polisher, Dr. Crow at [facility], however, she has not seen him in [...] 100 mg 3 times daily. 3. Continue [place] 7.5/325 mg 3 times daily as needed. [...] today and make an appointment with her lacquer polisher in light of her symptoms so that [...] medications for this patient's treatment plan today. /[id number] FLOYD Mullins/MIRIAN / PITA / MODL Electronically signed by Paul Grubbs Conversion Decommissioning Well Site Manager Cerner at 02/18/2023 4:47 PM CDT documented in this encounter Plan of Treatment Not on file documented as of this encounter Visit Diagnoses Not on filedocumented in this encounter
--- OUTSIDE RECORDS SUMMARY | 2025-07-09 09:51 | XMS_ITS | Encounter Summary ---
Author Organization [employer] ([place], [place], [place], [place]) Address [address] [place] [address] Care Team Providers Care Power Sewing Machine Operator Name Role Phone Unavailable Primary Care Provider Unavailabl e Encounter Details Date Type Department Care Team (Late st Contact Info) Description 04/11/2020 Transcribed Document [facility] [place] [address] [place] [address] ProviderDarrell MD [address] [place] [address] Social History Tobacco Use Types Packs/Day Years [...] she is still trying to decrease her [place] usage, however, she had to go back [...] have some constipation, but she uses something uxnh-kcu-qzanbsh that does help with that. The patient is also taking diclofenac as well as Robaxin and Lyrica in addition to the [place] and denies any adverse effects from any [...] 100 mg 3 times daily. 6. Continue [place] 7.5/325 mg 3 times daily as needed. [...] medications for this patient's treatment plan today. /[id number] FLOYD Mullins/MIRIAN / PITA / MODL CC: Janes Mason MD Electronically signed by [facility], [facility] Conversion Spot Machine Operator Cerner at 02/18/2023 5:04 PM CDT documented in this encounter Plan of Treatment Not on file documented as of this encounter Visit Diagnoses Not on filedocumented in this encounter
--- OUTSIDE RECORDS SUMMARY | 2025-07-09 09:51 | XMS_ITS | Encounter Summary ---
Author Organization [employer] ([place], [place], [place], [place]) Address [address] [place] [address] Care Team Providers Care General Service Officer Name Role Phone Unavailable Primary Care Provider Unavailabl e Encounter Details Date Type Department Care Team (Late st Contact Info) Description 10/17/2020 Transcribed Document [facility] [place] [facility] [place] [address] ProviderDarrell MD [address] [place] [address] Social History Tobacco Use Types Packs/Day Years Used Date Smoking Tobacco: Never Assessed Comments Unknown Sex and Gender Information Value Date Recorded Sex Assigned at Not on file Legal Sex Female 6:16 PM CDT Gender Identity Not on file Sexual Orientation Not on file documented as of this encounter Miscellaneous Notes * Cerner Conversion Note - Historical ProviderMD - 10/17/2020 8:05 PM ENVELOPE ADJUSTER Patient: FERMIN BARR Age: 55 Years Sex: [...] any respiratory distress but was visibly upset. Electronically signed by Paul Grubbs Conversion Duplicator Punch Set Up Operator Cerner at 02/18/2023 4:56 PM CDT documented in this encounter Plan of Treatment Not on file documented as of this encounter Visit Diagnoses Not on filedocumented in this encounter
--- OUTSIDE RECORDS SUMMARY | 2025-07-09 09:51 | XMS_ITS | Encounter Summary ---
Author Organization [employer] ([place], [place], [place], [place]) Address [address] [place] [address] Care Team Providers Care New Accounts Banking Representative Name Role Phone Unavailable Primary Care Provider Unavailabl e Encounter Details Date Type Department Care Team (Late st Contact Info) Description 05/10/2020 Transcribed Document [facility] [place] [facility] [place] [address] ProviderDarrell MD [address] [place] [address] Social History Tobacco Use Types Packs/Day Years [...] sedation, driving problem, or GI problem. Her gum dipper recently placed her on Cymbalta 30 mg [...] and walking. 8. I agree with her gum dipper to continue with Cymbalta 30 mg at [...] visit and the patient has been afebrile. /[id number] Pepe Krishna MD, BLAKE Pain Certified KR/AQ / EN / MODL CC: Janes Mason MD Electronically signed by [facility], [facility] Conversion Construction Technology Instructor Cerner at 02/18/2023 5:04 PM CDT documented in this encounter Plan of Treatment Not on file documented as of this encounter Visit Diagnoses Not on filedocumented in this encounter
--- OUTSIDE RECORDS SUMMARY | 2025-07-09 09:51 | XMS_ITS | Encounter Summary ---
Author Organization [email or web address] ([place], [place], [place], [place]) Address [address] [place] [address] Care Team Providers Care Neurosurgery Research Director Name Role Phone Unavailable Primary Care Provider Unavailabl e Encounter Details Date Type Department Care Team (Late st Contact Info) Description 10/17/2020 Transcribed Document [facility] [place] [facility] [place] [address] ProviderDarrell MD [address] [place] [address] Social History Tobacco Use Types Packs/Day Years Used Date Smoking Tobacco: Never Assessed Comments Unknown Sex and Gender Information Value Date Recorded Sex Assigned at Not on file Legal Sex Female 6:16 PM CDT Gender Identity Not on file Sexual Orientation Not on file documented as of this encounter Miscellaneous Notes * Cerner Conversion Note - Historical ProviderMD - 10/17/2020 8:29 PM PRODUCT SAFETY TECHNICAL ASSISTANT Vital Signs ED Entered On: 10/17/2020 20:29 [...] 10/17/2020 20:29 EST Electronically signed by [facility] Conversion Machine Adjuster Leader Cerner at 02/18/2023 4:53 PM CDT documented in this encounter Plan of Treatment Not on file documented as of this encounter Visit Diagnoses Not on filedocumented in this encounter
--- OUTSIDE RECORDS SUMMARY | 2025-07-09 09:51 | XMS_ITS | Encounter Summary ---
Author Organization [employer] ([place], [place], [place], [place]) Address [address] [place] [address] Care Team Providers Care Shot Core Drill Operator Helper Name Role Phone Unavailable Primary Care Provider Unavailabl e Encounter Details Date Type Department Care Team (Late st Contact Info) Description 10/17/2020 Transcribed Document [facility] [place] [facility] [place] [address] ProviderDarrell MD [address] [place] [address] Social History Tobacco Use Types Packs/Day Years Used Date Smoking Tobacco: Never Assessed Comments Unknown Sex and Gender Information Value Date Recorded Sex Assigned at Not on file Legal Sex Female 6:16 PM CDT Gender Identity Not on file Sexual Orientation Not on file documented as of this encounter Miscellaneous Notes * Cerner Conversion Note - Historical ProviderMD - 10/17/2020 10:52 PM BURN TABLE OPERATOR Patient: FERMIN BARR Age: 55 years Sex: Female : 1965 Associated Diagnoses: Elevated WBCs; PNA (pneumonia) Author: HAYLEE YOUNGBLOOD PA-C Basic Information Additional information: Chief Complaint from Nursing Triage Note : Chief Complaint 10/17/2020 17:31 EST Chief Complaint Hospitalized at [facility] last week c sepsis/PNA. Saw Maximiliano Alicia [...] Patient says that after being discharged from [facility] last week due to sepsis and possible [...] to see if she could come to [facility] to have her blood work done in [...] 30 Tab, 2 Refill(s) Documented Medications Documented [place] 7.5 mg-325 mg oral tablet: 1 Tab, [...] EST Height Source Stated Height Entry Format Homer Height/Length, LITHUANIAN (ft) 5 ft Height/Length LITHUANIAN 4 Inch CLINICALHEIGHT 162.56 cm [place] Body Weight 54.3 kg Weight Source, ED Critical estimated dosing weight Weight Entry Format Homer Weight Tajik lb 250 lb CLINICALWEIGHT 113.64 kg Body [...] Triage: ED C-SSRS: ED Clinical Reconciliation: ED valve pipe irrigator: EKG: Lactic Acid Level with Reflex if [...] 11.7 % LOW Lymph # 2.28 x10(3)/uL [place] % 4.3 % [place] # 0.83 K/uL Eos % 0.1 % [...]
--- OUTSIDE RECORDS SUMMARY | 2025-07-09 09:51 | XMS_ITS | Encounter Summary ---
Author Organization [employer] ([place], [place], [place], [place]) Address [address] [place] [address] Care Team Providers Care Motor Coach Chauffeur Name Role Phone Unavailable Primary Care Provider Unavailabl e Encounter Details Date Type Department Care Team (Late st Contact Info) Description 10/17/2020 Transcribed Document [facility] [place] [address] ProviderDarrell MD [address] [place] [address] Social History Tobacco Use Types Packs/Day [...] Darrell Flores MD - 10/17/2020 11:07 PM PASSPORT APPLICATION EXAMINER [facility] [place] [address] JAYCOB FERMINMARY KATE SAUNDERS :1965 [...] with new or worsening symptoms. Where: [address] [facility] [address] [place] [address] Business (1) Follow Up with REYES BRONSON When Within 2 to 3 days Where: [address], [address] [place] [address] [facility] (1) Allergies Tylenol with Codeine (Vomiting, Nausea, Chest pain) penicillin (Unknown) Immunizations This Visit No Immunizations Found Medications What How Much When Instructions Next Dose acetaminophen-hydrocodone ([place] 7.5 mg-325 mg oral tablet) 1 Tablet(s) [...] range between ( 0.0 and 7.0 ) [place] #: 0.83 K/uL -- Normal range between ( 0.16 and 1.00 ) Eos #: 0.01 x10(3)/uL -- Normal range between ( 0.00 and 0.80 ) [place] %: 4.3 % -- Normal range between [...] these instructions at home: Medicines ??? Take jaao-npj-yyhabnk and prescription medicines only as told by [...] and water are not available, use hand technical specialist cytogenetics. Contact a health care provider if: ??? [...] 10/21/2006 Document Revised: 06/18/2019 Document Reviewed: 06/18/2019 [employer] Patient Education ?? 2020 [employer] Emergency Awareness and Preventative Care STROKE [...] Assistance with quitting is available by contacting 6-264-TRMXNOW. This is a free resource providing counseling, support, and referral. Or you may contact your personal physician. Let Suicide Prevention Lifeline: The National Suicide Prevention [...] was given the opportunity to ask questions. Patient/Inhalation Therapy Aides Teacher Name: Patient/Inhalation Therapy Aides Teacher Signature: Relationship to Patient: Clinician/Hospital Inhalation Therapy Aides Teacher Signature: Please Provide a Telephone Number Where You Can Be Reached: Is it Permissible To Leave a Message? Date: documented in this encounter Plan of Treatment Not on file documented as of this encounter Visit Diagnoses Not on filedocumented in this encounter
--- OUTSIDE RECORDS SUMMARY | 2025-07-09 09:51 | XMS_ITS | Encounter Summary ---
Author Organization [employer] ([place], [place], [place], [place]) Address [address] [place] [address] Care Team Providers Care Watch Manufacturing Supervisor Name Role Phone Unavailable Primary Care Provider Unavailabl e Encounter Details Date Type Department Care Team (Late st Contact Info) Description 10/17/2020 Transcribed Document [facility] [place] [facility] [place] [address] ProviderDarrell MD [address] [place] [address] Social History Tobacco Use Types Packs/Day Years Used Date Smoking Tobacco: Never Assessed Comments Unknown Sex and Gender Information Value Date Recorded Sex Assigned at Not on file Legal Sex Female 6:16 PM CDT Gender Identity Not on file Sexual Orientation Not on file documented as of this encounter Miscellaneous Notes * Cerner Conversion Note - Historical ProviderMD - 10/17/2020 4:38 PM FELLER MACHINE OPERATOR [place] Suicide Severity Rating Scale (C-SSRS) Entered On: 10/17/2020 22:43 EST Performed On: 10/17/2020 22:40 EST by Jeannette Fuller RN [place] Suicide Severity Rating Scale (C-SSRS) CSSRS Past [...]
--- OUTSIDE RECORDS SUMMARY | 2025-07-09 09:51 | XMS_ITS | Encounter Summary ---
Author Organization [employer] ([place], [place], [place], [place]) Address [address] [place] [address] Care Team Providers Care Tin Assorter Name Role Phone Unavailable Primary Care Provider Unavailabl e Encounter Details Date Type Department Care Team (Late st Contact Info) Description 10/17/2020 Transcribed Document [facility] [place] Former[place] [address] ProviderDarrell MD [address] [place] [address] [id number] Social History Tobacco Use Types Packs/Day Years Used Date Smoking Tobacco: Never Assessed Comments Unknown Sex and Gender Information Value Date Recorded Sex Assigned at Not on file Legal Sex Female 6:16 PM CDT Gender Identity Not on file Sexual Orientation Not on file documented as of this encounter Miscellaneous Notes * Cerner Conversion Note - Historical ProviderMD - 10/17/2020 4:38 PM ORDER ENTRY SPECIALIST ED Triage Entered On: 10/17/2020 17:34 EST Performed On: 10/17/2020 17:31 EST by Calli Cruz RN ED Triage Across the Room Chief Complaint : Hospitalized at [facility] last week c sepsis/PNA. Saw Gillian Alicia @ Dr. Cheek's office 10/13, had elevated WBCs. Temp today 98.6 - states baseline is 97.1 and she was advised to come to ED. Triage Date/Time : 10/17/2020 17:31 EST Calli Cruz RN - 10/17/2020 17:31 EST DCP GENERIC CODE Tracking Acuity : 3 - Urgent Tracking [facility] Calli Cruz RN - 10/17/2020 [...] mmHg Oxygen Saturation : 97 % Calli Cruz RN - 10/17/2020 17:31 EST Allergy (As [...] 10/17/2020 17:34:28 EST) Problems(Active) Anxiety (SNOMED CT :2592984200 ) Name of Problem: Anxiety ; Recorder: Tracey Mathews RN; Confirmation: Confirmed ; Classification: Medical ; Code: 3261060221 ; Contributor System: KeepGo ; Last Updated: 11/06/2016 11:42 EST ; Life Cycle Date: 11/06/2016 ; Life Cycle Status: Active ; Vocabulary: SNOMED CT Arthritis (SNOMED CT :8178730 ) Name of Problem: Arthritis ; Recorder: JOSÉ MIGUEL BRADSHAW RN; Confirmation: Confirmed ; Classification: Medical ; Code: 5856192 ; Contributor System: CorelyticsChart ; Last Updated: 09/23/2018 15:39 EST ; Life Cycle Date: 06/18/2018 ; Life Cycle Status: Active ; Vocabulary: SNOMED CT Asthma (SNOMED CT :323424413 ) Name of Problem: Asthma ; Recorder: Tracey Mathews RN; Confirmation: Confirmed ; Classification: Medical ; Code: 440048842 ; Contributor System: PowerChart ; Last Updated: 11/06/2016 11:28 EST ; Life Cycle Date: 11/06/2016 ; Life Cycle Status: Active ; Vocabulary: SNOMED CT Asthma (SNOMED CT :335261563 ) Name of Problem: Asthma ; Recorder: JOSÉ MIGUEL BRADSHAW RN; Confirmation: Confirmed ; Classification: Medical ; Code: 126604365 ; Contributor System: PowerChart ; Last Updated: 06/18/2018 15:03 EDT ; Life Cycle Date: 06/18/2018 ; Life Cycle Status: Active ; Vocabulary: SNOMED CT Cardiomyopathy (SNOMED CT :664245396 ) Name of Problem: Cardiomyopathy ; Recorder: Malgorzata Pemberton RN; Confirmation: Confirmed ; Classification: Medical ; Code: 003729943 ; Contributor System: CorelyticsChart ; Last Updated: 11/07/2016 6:38 EST ; Life Cycle Date: 11/07/2016 ; Life Cycle Status: Active ; Vocabulary: SNOMED CT DDD (degenerative disc disease), cervical (SNOMED CT :279281693 ) Name of Problem: DDD (degenerative disc disease), cervical ; Recorder: Tracey Mathews RN; Confirmation: Confirmed ; Classification: Medical ; Code: 567640616 ; Contributor System: PowerChart ; Last Updated: 11/06/2016 11:41 EST ; Life Cycle Date: 11/06/2016 ; Life Cycle Status: Active ; Vocabulary: SNOMED CT Endometriosis (SNOMED CT :6051182139 ) Name of Problem: Endometriosis ; Recorder: Tracey Mathews RN; Confirmation: Confirmed ; Classification: Medical ; Code: 4373733911 ; Contributor System: PowerChart ; Last Updated: 11/06/2016 11:30 EST ; Life Cycle Date: 11/06/2016 ; Life Cycle Status: Active ; Vocabulary: SNOMED CT Fibroids (SNOMED CT :278537860 ) Name of Problem: Fibroids ; Recorder: Tracey Mathews RN; Confirmation: Confirmed ; Classification: Medical ; Code: 134572661 ; Contributor System: PowerChart ; Last Updated: 11/06/2016 11:30 EST ; Life Cycle Date: 11/06/2016 ; Life Cycle Status: Active ; Vocabulary: SNOMED CT GERD - Gastro-esophageal reflux disease (SNOMED CT :6340738213 ) Name of Problem: GERD - Gastro-esophageal reflux disease ; Recorder: Tracey Mathews RN; Confirmation: Confirmed ; Classification: Medical ; Code: 0092664996 ; Contributor System: PowerChart ; Last Updated: 11/06/2016 11:29 EST ; Life Cycle Date: 11/06/2016 ; Life Cycle Status: Active ; Vocabulary: SNOMED CT H/O: depression (SNOMED CT :869043438 ) Name of Problem: H/O: depression ; Recorder: JOSÉ MIGUEL BRADSHAW RN; Confirmation: Confirmed ; Classification: Medical ; Code: 680394764 ; Contributor System: PowerChart ; Last Updated: 06/18/2018 15:07 EDT ; Life Cycle Date: 06/18/2018 ; Life Cycle Status: Active ; Vocabulary: SNOMED CT History of obstructive sleep apnea (IMO :34203534 ) Name of Problem: History of obstructive sleep apnea ; Recorder: SYSTEM, SYSTEM; Confirmation: Confirmed ; Classification: Medical ; Code: 74305488 ; Last Updated: 06/18/2018 15:16 EDT ; Life Cycle Date: 06/18/2018 ; Life Cycle Status: Active ; Vocabulary: IMO Left carpal tunnel syndrome (SNOMED CT :1754463134 ) Name of Problem: Left carpal tunnel syndrome ; Recorder: Tracey Mathews RN; Confirmation: Confirmed ; Classification: Medical ; Code: 0937883943 ; Contributor System: PowerChart ; Last Updated: 11/06/2016 11:43 EST ; Life Cycle Date: 11/06/2016 ; Life Cycle Status: Active ; Vocabulary: SNOMED CT Migraine (SNOMED CT :77514223 ) Name of Problem: Migraine ; Recorder: Tracey Mathews RN; Confirmation: Confirmed ; Classification: Medical ; Code: 20255157 ; Contributor System: PowerChart ; Last Updated: 11/06/2016 11:30 EST ; Life Cycle Date: 11/06/2016 ; Life Cycle Status: Active ; Vocabulary: SNOMED CT Neck pain (SNOMED CT :6214899219 ) Name of Problem: Neck pain ; Recorder: Tracey Mathews RN; Confirmation: Confirmed ; Classification: Medical ; Code: 9167029769 ; Contributor System: PowerChart ; Last Updated: 11/06/2016 11:41 EST ; Life Cycle Date: 11/06/2016 ; Life Cycle Status: Active ; Vocabulary: SNOMED CT PCO - Polycystic ovaries (SNOMED CT :800251601 ) Name of Problem: PCO - Polycystic ovaries ; Recorder: Tracey Mathews RN; Confirmation: Confirmed ; Classification: Medical ; Code: 143202131 ; Contributor System: PowerChart ; Last Updated: 11/06/2016 11:30 EST ; Life Cycle Date: 11/06/2016 ; Life Cycle Status: Active ; Vocabulary: SNOMED CT Pneumonia (SNOMED CT :788000787 ) Name of Problem: Pneumonia ; Recorder: Tracey Mathews RN; Confirmation: Confirmed ; Classification: Medical ; Code: 602361114 ; Contributor System: PowerChart ; Last Updated: 11/06/2016 11:28 EST ; Life Cycle Date: 11/06/2016 ; Life Cycle Status: Active ; Vocabulary: SNOMED CT Sleep apnea (SNOMED CT :077062330 ) Name of Problem: Sleep apnea ; Recorder: JOSÉ MIGUEL BRADSHAW RN; Confirmation: Confirmed ; Classification: Medical ; Code: 087456245 ; Contributor System: PowerChart ; Last Updated: 06/18/2018 15:03 EDT ; Life Cycle Date: 06/18/2018 ; Life Cycle Status: Active ; Vocabulary: SNOMED CT Spinal stenosis of cervical region (SNOMED CT :686067343 ) Name of Problem: Spinal stenosis of cervical region ; Recorder: Tracey Mathews RN; Confirmation: Confirmed ; Classification: Medical ; Code: 763809598 ; Contributor System: PowerChart ; Last Updated: 11/06/2016 11:43 EST ; Life Cycle Date: 11/06/2016 ; Life Cycle Status: Active ; Vocabulary: SNOMED CT Wears glasses (SNOMED CT :331548745 ) Name of Problem: Wears glasses ; Recorder: JOSÉ MIGUEL BRADSHAW RN; Confirmation: Confirmed ; Classification: Medical ; Code: 799236897 ; Contributor System: KeepGo ; Last Updated: 06/18/2018 15:01 EDT ; Life Cycle Date: 06/18/2018 ; Life Cycle Status: Active ; Vocabulary: SNOMED CT Diagnoses(Active) Abnormal laboratory findings Date: 10/17/2020 ; Diagnosis Type: Reason For Visit ; Confirmation: Complaint of ; Clinical Dx: Abnormal laboratory findings ; Classification: Medical ; Clinical Service: Non-Specified ; Code: PNED ; Probability: 0 ; Diagnosis Code: [id number] Shortness of breath Date: 10/17/2020 ; Diagnosis Type: Reason For Visit ; Confirmation: Complaint of ; Clinical Dx: Shortness of breath ; Classification: Medical ; Clinical Service: Non-Specified ; Code: PNED ; Probability: 0 ; Diagnosis Code: [id number] ED Height and Weight Height Source : Stated Height Entry Format : Finney Height, Feet : 5 ft(Converted to: 152 cm, 60 Inch) Height, Inches : 4 Inch(Converted to: 0 ft 4 Inch, 10.16 cm) Clinical Height : 162.56 cm Weight Source, ED : Critical estimated dosing weight Weight Entry Format : Finney Weight, Pounds : 250 lb Clinical Dosing Weight : 113.64 kg Body Surface Area (BSA) : 2.15 m2 Body Mass Index : 43 kg/m2 (>HHI) Prosser Body Weight (IBW) : 54.3 kg Calli Cruz RN - 10/17/2020 17:31 EST documented in this encounter Plan of Treatment Not on file documented as of this encounter Visit Diagnoses Not on filedocumented in this encounter
--- OUTSIDE RECORDS SUMMARY | 2025-07-09 09:51 | XMS_ITS | Encounter Summary ---
Author Organization [employer] ([place], [place], [place], [place]) Address [address] [place] [address] Care Team Providers Care Purchasing Coordinator Name Role Phone Unavailable Primary Care Provider Unavailabl e Encounter Details Date Type Department Care Team (Late st Contact Info) Description 10/17/2020 Transcribed Document [facility] [place] Family Medicine Formerly [facility] [place] [address] ProviderDarrell MD [address] [place], [place] [id number] Social History Tobacco Use Types Packs/Day Years Used Date Smoking Tobacco: Never Assessed Comments Unknown Sex and Gender Information Value Date Recorded Sex Assigned at Not on file Legal Sex Female 6:16 PM CDT Gender Identity Not on file Sexual Orientation Not on file documented as of this encounter Miscellaneous Notes * Cerner Conversion Note - Historical ProviderMD - 10/17/2020 11:15 PM PATIENT ASSESSMENT COORDINATOR ED Discharge Vital Signs Entered On: 10/17/2020 23:15 EST Performed On: 10/17/2020 23:15 EST by Jeannette Fuller RN ED Discharge Vital Signs Peripheral Pulse Rate : 82 bpm Respiratory Rate : 20 Breaths/Min Systolic Blood Pressure : 121 mmHg Diastolic Blood Pressure : 67 mmHg Oxygen Saturation : 98 % Jeannette Fuller RN - 10/17/2020 23:15 EST Electronically signed by [facility] Conversion Textiles Sales Representative Cerarlin at 02/18/2023 4:50 PM CDT documented in this encounter Plan of Treatment Not on file documented as of this encounter Visit Diagnoses Not on filedocumented in this encounter
--- OUTSIDE RECORDS SUMMARY | 2025-07-09 09:51 | XMS_ITS ---
Laboratory report Created on: July 03, 2025 FERMIN DEVRIES : 1965 Sex: Female Author Organization Unknown PROBLEMS Problems List Code Description RESULTS Laboratory Orders Date Order Code Test 2025-06-29 [id number] GABAPENTIN, URIN E Laboratory Results Date LOINC Test Value Unit Reference Range Interpre tation 2025-06-29 83132-8 GABAPENTIN, URINE N UG/ML
--- OUTSIDE RECORDS SUMMARY | 2025-07-09 09:51 | XMS_ITS | Clinical Summary ---
Author Organization [facility] Address [address] [place] [address] Phone Care Team Providers Care Eligibility Consultant Name Role Phone Janes Mason Primary Care Provider [phone] Allergies Active Allergy Reactions Criticality Noted Date [...] age to complete this topic Insurance PPO [facility] PPO Care Teams Eligibility Consultant Relationship Specialty Start Date End Date Janes Mason [address] [place] [phone] PCP - General Family Medicine 04/09/17
--- OUTSIDE RECORDS SUMMARY | 2025-07-09 09:51 | XMS_ITS | Clinical Summary ---
Author Organization [facility] Address [address] [id number] Care Team Providers Care Print And Pattern Designer Name Role Phone Janes Mason MD Primary Care Provider [phone] Allergies Active Allergy Reactions Criticality Noted Date Comments Acetaminophen GI Intolerance 12/01/2015 Acetaminophen-Codeine Unknown - Low Severity Codeine GI Intolerance 10/13/2021 Penicillins Other (See Comments) ,Unknown - Low Severity 11/13/2012 Medications pregabalin (Lyrica) 100 MG capsule Every 8 (Eight) Hours. Active HYDROcodone-acet aminophen ([place]) 5-325 MG per tablet [place] 5 mg-325 mg tablet Take 1 tablet [...] Payer (Ef fective 2019-Present) Name:Darshana Barr Member ID:[id number] Relation to Subscriber:Self Name:Darshana Barr Subscriber ID:[id number] Payer ID:[id number] Group ID:Not on file Type:Not on file Address: [address] Care Teams Print And Pattern Designer Relationship Specialty Start Date End Date Janes Mason MD [address] [place] [address] PCP - General Family Medicine 07/11/21
--- OUTSIDE RECORDS SUMMARY | 2025-07-09 09:51 | XMS_ITS | Encounter Summary ---
Author Organization [employer] ([place], [place], [place], [place]) Address [address] [place] [address] Care Team Providers Care Sommelier Name Role Phone Unavailable Primary Care Provider Unavailabl e Encounter Details Date Type Department Care Team (Late st Contact Info) Description 10/17/2020 Transcribed Document [facility] [place] Family Medicine [facility] [place] [address] ProviderDarrell MD [address] [place], [place] [phone] Social History Tobacco Use Types Packs/Day Years Used Date Smoking Tobacco: Never Assessed Comments Unknown Sex and Gender Information Value Date Recorded Sex Assigned at Not on file Legal Sex Female 6:16 PM CDT Gender Identity Not on file Sexual Orientation Not on file documented as of this encounter Miscellaneous Notes * Cerner Conversion Note - Historical ProviderMD - 10/17/2020 8:38 PM FUNERAL PREARRANGEMENT COUNSELOR ED Event Note Entered On: 10/17/2020 20:40 EST Performed On: 10/17/2020 20:38 EST by Jeannette Fuller RN ED Event [...]
--- OUTSIDE RECORDS SUMMARY | 2025-07-09 09:52 | XMS_ITS | Encounter Summary ---
Author Organization [employer] ([place], [place], [place], [place]) Address [address] [place] [address] Care Team Providers Care Outside Machinist Helper Name Role Phone Unavailable Primary Care Provider Unavailabl e Encounter Details Date Type Department Care Team (Late st Contact Info) Description 06/08/2019 Transcribed Document [facility] [place] [facility] [place] [address] ProviderDarrell MD [address] [place] [address] Social History Tobacco Use Types Packs/Day Years [...] Lyrica 100 mg 3 times daily and [place] 7.5/325 mg 3 times daily as needed. [...] doing well with the increase in the [place] and it is giving her so much [...] with alcohol, or self-escalate it. 2. Continue [place] 7.5/325 mg 3 times daily. 3. Continue [...] for pain alleviation prior to taking her [place], including heat, ice, relaxation, rest, and meditation. [...]
--- OUTSIDE RECORDS SUMMARY | 2025-07-09 09:52 | XMS_ITS | Encounter Summary ---
Author Organization [employer] ([place], [place], [place], [place]) Address [address] [place] [address] Care Team Providers Care Captain Assistant Name Role Phone Unavailable Primary Care Provider Unavailabl e Encounter Details Date Type Department Care Team (Late st Contact Info) Description 11/10/2019 Transcribed Document [facility] [place] [address] [place] [address] ProviderDarrell MD [address] [place] [address] Social History Tobacco Use Types Packs/Day Years Used Date Smoking Tobacco: Never Assessed Comments Unknown Sex and Gender Information Value Date Recorded Sex Assigned at Not on file Legal Sex Female 6:16 PM CDT Gender Identity Not on file Sexual Orientation Not on file documented as of this encounter Miscellaneous Notes * Cerner Conversion Note - Historical ProviderMD - 11/10/2019 8:58 AM VISUAL COORDINATOR DATE OF ADMISSION: 11/09/2019 HISTORY OF PRESENT [...] home exercises in addition to taking her [place] 3 times daily as needed and her Lyrica 3 times daily. The patient says that she is currently seeing a compound specialist every 3 months due to some respiratory [...] if we could refer her to a environmental scientist that she would like to be evaluated [...] with alcohol, or self-escalate it. 2. Continue [place] 7.5/325 mg 3 times daily as needed. [...] medications for this patient's treatment plan today. /[id number] DICTATED BY: Jazz Orta APRN for Pepe Krishna MD, BLAKE Pain Certified Pepe Krishna MD, BLAKE Pain Certified PITA/AQ / PITA / MODL CC: FLOYD Lazo MD Electronically signed by [facility] Conversion Dump Motor Operator Cerner at 02/18/2023 5:00 PM CDT documented in this encounter Plan of Treatment Not on file documented as of this encounter Visit Diagnoses Not on filedocumented in this encounter
--- OUTSIDE RECORDS SUMMARY | 2025-07-09 09:52 | XMS_ITS | Encounter Summary ---
Author Organization [employer] ([place], [place], [place], [place]) Address [address] [place] [address] Care Team Providers Care Mailing Machine Operator Name Role Phone Unavailable Primary Care Provider Unavailabl e Encounter Details Date Type Department Care Team (Late st Contact Info) Description 01/05/2019 Transcribed Document [facility] [place] Medicine Formerly [facility] [place] [address] ProviderDarrell MD [address] [place] [address] Social History Tobacco Use Types Packs/Day Years Used Date Smoking Tobacco: Never Assessed Comments Unknown Sex and Gender Information Value Date Recorded Sex Assigned at Not on file Legal Sex Female 6:16 PM CDT Gender Identity Not on file Sexual Orientation Not on file documented as of this encounter Miscellaneous Notes * Cerner Conversion Note - Historical ProviderMD - 01/05/2019 1:45 PM NEWSPAPER PRESS OPERATOR APPRENTICE DATE OF ADMISSION: 01/05/2019 HISTORY OF PRESENT [...] now. The patient does continue to take [place] 7.5/325 mg 2-3 times a day as [...] 5. Long-term opioid use. PLAN: 1. Refill [place] 7.5/325 mg 2-3 times a day as [...]
--- OUTSIDE RECORDS SUMMARY | 2025-07-09 09:52 | XMS_ITS | Clinical Summary ---
Author Organization [employer] ([place], [place], [place], [place]) Address [address] [place] [address] Care Team Providers Care Concrete Saw Operator Name Role Phone Unavailable Primary Care [...] HYDROcodone-elaine taminophen (NORCO) 5-325 mg per tablet [place] 5 mg-325 mg tablet Take 1 tablet [...] 10/10/2021, 10/24/[address] Insurance [place] [address] [place] [address] CROSS/BLUE SHIELD Member Subscriber Plan / Payer (Ef fective 2023-Present) Name:Darshana Barr Relation to Subscriber:Self Name:Darshana Barr Payer ID:Not on file Group ID:[id number] Type:Not on file Address: [facility] [address] [place] [id number]
--- OUTSIDE RECORDS SUMMARY | 2025-07-09 09:52 | XMS_ITS | Encounter Summary ---
Author Organization [employer] ([place], [place], [place], [place]) Address [address] [place] [address] Care Team Providers Care Dragline Mechanic Name Role Phone Unavailable Primary Care Provider Unavailabl e Encounter Details Date Type Department Care Team (Late st Contact Info) Description 01/18/2020 Transcribed Document [facility] [place] [address] [place] [address] ProviderDarrell MD [address] [place] [address] Social History Tobacco Use Types Packs/Day Years [...] her Lyrica 3 times daily and her [place] 3 times daily as needed. The patient says that the use of the medication makes her more functional. She denies any adverse effects including toxic effect, sedation, driving problems, or GI problems. The patient says she did go to the Rheumatology appointment and had lots of blood work done, but has not gotten the results yet and has a followup with the health education director in February. REVIEW OF SYSTEMS: The patient [...] 100 mg 3 times daily. 3. Continue [place] 7.5/325 mg 3 times daily as needed. [...] medications for this patient's treatment plan today. /[id number] FLOYD Mullins/MIRIAN / PITA / MODL CC: MD Nneak Alcantar APRN Electronically signed by [facility] Conversion Construction Job Cost Estimator Cerner at 02/18/2023 4:48 PM CDT documented in this encounter Plan of Treatment Not on file documented as of this encounter Visit Diagnoses Not on filedocumented in this encounter
--- OUTSIDE RECORDS SUMMARY | 2025-07-09 09:52 | XMS_ITS | Encounter Summary ---
Author Organization [employer] ([place], [place], [place], [place]) Address [address] [place] [address] Care Team Providers Care Co Founder And Chairman Name Role Phone Unavailable Primary Care Provider Unavailabl e Encounter Details Date Type Department Care Team (Late st Contact Info) Description 03/17/2019 Transcribed Document [facility] [place] [facility] [place] [address] ProviderDarrell MD [address] [place] [address] Social History Tobacco Use Types Packs/Day Years [...] Mason Electronically signed by Landon Grubbs Conversion Fellmongering Machine Operator Cerner at 02/18/2023 4:50 PM CDT documented in this encounter Plan of Treatment Not on file documented as of this encounter Visit Diagnoses Not on filedocumented in this encounter
--- OUTSIDE RECORDS SUMMARY | 2025-07-09 09:52 | XMS_ITS | Encounter Summary ---
Author Organization [employer] ([place], [place], [place], [place]) Address [address] [place] [address] Care Team Providers Care Product Distribution Specialist Name Role Phone Unavailable Primary Care Provider Unavailabl e Encounter Details Date Type Department Care Team (Late st Contact Info) Description 10/12/2019 Transcribed Document [facility] [place] [facility] [place] [address] ProviderDarrell MD [address] [place] [phone] Social History Tobacco Use Types Packs/Day Years Used Date Smoking Tobacco: Never Assessed Comments Unknown Sex and Gender Information Value Date Recorded Sex Assigned at Not on file Legal Sex Female 6:16 PM CDT Gender Identity Not on file Sexual Orientation Not on file documented as of this encounter Miscellaneous Notes * Cerner Conversion Note - Historical ProviderMD - 10/12/2019 2:22 PM LABORER MINE DATE OF ADMISSION: 10/12/2019 Darshana Barr is [...] will discuss it in the next visit. /[id number] Pepe Krishna MD, BLAKE Pain Certified KR/AQ / KR / MODL CC: Janes Mason MD documented in this encounter Plan of Treatment Not on file documented as of this encounter Visit Diagnoses Not on filedocumented in this encounter
--- OUTSIDE RECORDS SUMMARY | 2025-07-09 09:52 | XMS_ITS | Encounter Summary ---
Author Organization [employer] ([place], [place], [place], [place]) Address [address] [place] [address] Care Team Providers Care Sales Appointment Coordinator Name Role Phone Unavailable Primary Care Provider Unavailabl e Encounter Details Date Type Department Care Team (Late st Contact Info) Description 01/06/2021 Transcribed Document [facility] [place] Medicine [facility] [place] [address] ProviderDarrell MD [address] [place] [phone] Social History Tobacco Use Types Packs/Day Years Used Date Smoking Tobacco: Never Assessed Comments Unknown Sex and Gender Information Value Date Recorded Sex Assigned at Not on file Legal Sex Female 6:16 PM CDT Gender Identity Not on file Sexual Orientation Not on file documented as of this encounter Miscellaneous Notes * Cerner Conversion Note - Historical ProviderMD - 01/06/2021 12:45 PM ENGINEERING SECRETARY [facility] Endo IntraOp Summary Primary Physician: SEA OLSON MD Finalized Date/Time: 01/06/21 13:06:19 Pt. Name: FERMIN BARR/Sex: 1965 Female Med Rec #: [id number] Physician: SEA OLSON MD Financial #: [id number] Pt. Type: O Room/Bed: END/ Admit/Disch: 01/06/21 11:16:00 - Institution: [facility] Endo - Case Attendance Entry 1 Entry 2 Entry 3 Case Attendee SEA OLSON MD GHANSAH, NANA DADZIE, Mcclintock, Molly, Rn MD-ANS Role Performed Surgeon/Proceduralist, Anesthesiologist of Manager Leasing, First First Record Time In 01/06/21 12:38:00 [...] BURGESS, MONICA ZEPEDA, LATISHA SHELLEY Role Performed Manager Leasing, Second Scrub, First CERAMIC TILE SETTER/Nurse Spearer Time In 01/06/21 12:38:00 01/06/21 12:38:00 01/06/21 12:38:00 Time Out 01/06/21 13:08:00 01/06/21 13:08:00 01/06/21 13:08:00 Procedure Gastric Biopsy, Gastric Biopsy, Gastric Biopsy, Esophageal Biopsy, Esophageal Biopsy, Esophageal Biopsy, Esophageal Dilatation Esophageal Dilatation Esophageal Dilatation Other Attendee Superficial Wound Closed By: Last Modified By: Moira Jensen Rn Mcclintock, Molly, Moira Sanchez Rn 01/06/21 13:05:47 01/06/21 13:05:47 01/06/21 13:05:47 [facility] Endo - Case Attendance Audit 01/06/21 13:05:47 Rebar Bender: [id number] Modifier: [id number] 1 <+> Time Out 1 <*> Procedure [...] Biopsy, Esophageal Biopsy, Esophageal Dilatation 01/06/21 12:48:41 Rebar Bender: [id number] Modifier: [id number] 1 <*> Procedure Colonoscopy, Esophagogastroduodenoscopy, Gastric Biopsy, Esophageal Biopsy 2 <*> Procedure Gastric Biopsy, Esophageal Biopsy 3 <*> Procedure Gastric Biopsy, Esophageal Biopsy 4 <*> Procedure Gastric Biopsy, Esophageal Biopsy 5 <*> Procedure Gastric Biopsy, Esophageal Biopsy 6 <*> Procedure Gastric Biopsy, Esophageal Biopsy 01/06/21 12:45:26 Rebar Bender: [id number] Modifier: [id number] 1 <*> Procedure Colonoscopy, Esophagogastroduodenoscopy, Gastric Biopsy 2 <*> Procedure Gastric Biopsy 3 <*> Procedure Gastric Biopsy 4 <*> Procedure Gastric Biopsy 5 <*> Procedure Gastric Biopsy 6 <*> Procedure Gastric Biopsy 01/06/21 12:44:50 Rebar Bender: [id number] Modifier: [id number] 1 <*> Procedure Colonoscopy, Esophagogastroduodenoscopy <+> 2 Procedure <+> 3 Procedure <+> 4 Procedure <+> 5 Procedure <+> 6 Procedure 01/06/21 12:41:08 Rebar Bender: [id number] Modifier: [id number] <*> Case Attendee LANA HERRMANN MD-ANS 01/06/21 12:40:29 Rebar Bender: [id number] Modifier: [id number] 1 <+> Time In 1 <*> Procedure Colonoscopy, Esophagogastroduodenoscopy <+> 2 Time In <+> 3 Time In <+> 4 Time In <+> 5 Time In <+> 6 Time In 01/06/21 12:31:04 Rebar Bender: [id number] Modifier: [id number] <+> 2 Case Attendee <+> 2 Role Performed <+> 3 Case Attendee <+> 3 Role Performed <+> 4 Case Attendee <+> 4 Role Performed <+> 5 Case Attendee <+> 5 Role Performed <+> 6 Case Attendee <+> 6 Role Performed [facility] Endo - Case times Entry 1 Patient In Room Time 01/06/21 12:38:00 Out Room Time 01/06/21 13:08:00 Anesthesia Start Time 01/06/21 12:38:00 Stop Time 01/06/21 13:08:00 Surgery / Procedure Times Start Time 01/06/21 12:45:00 Stop Time 01/06/21 13:05:00 Last Modified By: Moira Jensen Rn 01/06/21 13:05:33 [facility] Endo - Case times Audit 01/06/21 13:05:33 Rebar Bender: [id number] Modifier: [id number] <+> 1 Out Room Time <+> 1 Stop Time <+> 1 Stop Time 01/06/21 12:47:15 Rebar Bender: [id number] Modifier: [id number] <+> 1 Start Time [facility] Endo - Cultures and Spec Summary Entry 1 Cultrures and Specimens Specimen Ordered: Yes Test(s) Routine/Path-Lab Requested/Final Disposition Last Modified By: Moira Jensen Rn 01/06/21 12:47:42 [facility] Endo - Delays Entry 1 Delay Reason Other, No Delay Duration 0 Minute(s) Last Modified By: Moira Jensen Rn 01/06/21 12:31:14 [facility] Endo - Departure from OR Entry 1 Integumentary Assessment Integumentary WDL Assessment WDL Transfer/Handoff Transfer to PACU Phase I Post-op Transport Stretcher/Gurney Via Patient Transport Moira Jensen Rn Accompanied by Last Modified By: Moira Jensen Rn 01/06/21 12:40:40 [facility] Endo - Departure from OR Audit 01/06/21 12:40:40 Rebar Bender: [id number] Modifier: [id number] 1 <*> Patient Transport Accompanied by Moira Jensen, Rn 1 <-> Handoff Method Bedside/Face to face [facility] Endo - Endoscopy Details Entry 1 Abdomen Procedure Soft, Non-Tender Assessment Procedure Abdomen 01/06/21 12:38:00 Assessment D/T Radio Frequency Ablation Abdominal Pressure Last Modified By: Moira Jensen Rn 01/06/21 12:38:50 [facility] Endo - Fire Risk Assessment Entry 1 Fire Info Surgical Site or 1- Yes Incision Above the Xyphoid Open O2 Source 1- Yes (Mask or Cannula) Available Ignition 1- Yes (ESU, Laser, Light Source) Fire Risk 3 Assessment Score Fire Score Fire Risk Yes Assessment Complete Fire Risk Moira Jensen, Director Group Sales Verified By Fire Risk 01/06/21 12:39:00 Assessment Verified Date/Time Fire Risk High Risk Protocol Yes Implemented Standard Fire Yes Safety Precautions Followed Last Modified By: Moira Jensen Rn 01/06/21 12:39:28 [facility] Endo - Fire Risk Assessment Audit 01/06/21 12:39:28 Rebar Bender: [id number] Modifier: [id number] <+> 1 Fire Risk Assessment Complete <+> 1 Fire Risk Assessment Verified Date/Time [facility] Endo - General Case Clinical Informatics Director 1 Case Information OR Endo 03 [facility] Case Level 1 Room Verified Yes Wound Class III - Contaminated Specialty SN Gastroenterology Anesthesia Type General ASA Class 3 Diagnosis Preop Diagnosis dysphagia/screening Postop Same As Preop Yes Postop Diagnosis dysphagia/screening Last Modified By: Moira Jensen Rn 01/06/21 12:39:17 [facility] Endo - General Case Data Audit 01/06/21 12:39:17 Rebar Bender: [id number] Modifier: [id number] <+> 1 ASA Class <+> 1 Postop Same As Preop <+> 1 Preop Diagnosis <+> 1 Postop Diagnosis [facility] Endo - Intraoperative Assessment Entry 1 Valid History / Yes Physical in Chart Preoperative Yes Checklist Reviewed/Evaluated Patient is Latex No Sensitive Level of WDL Consciousness (WDL = Alert, Oriented to Person, Place, and Time) Last Modified By: Moira Jensen Rn 01/06/21 12:31:39 [facility] Endo - Intraoperative Equipment Entry 1 Equipment Intraop Monitoring Electrocardiogram Three lead placement (ECG) Electrode Placement Blood Pressure Arm, left upper Location Pulse Oximeter Hand, right Probe Site Antiembolic Devices Scopes Flexible Endoscopes Gastroscope Used Scope Serial N, K Number/Identificatio n Number Photo/Video Documentation Photo Yes Video No Last Modified By: Moira Jensen Rn 01/06/21 12:41:53 [facility] Endo - Intraoperative Equipment Audit 01/06/21 12:41:53 Rebar Bender: [id number] Modifier: [id number] 1 <*> Photo Yes 1 <*> Video No 1 <*> Electrocardiogram (ECG) Electrode Three lead placement Placement 1 <*> Blood Pressure Location Arm, left upper 1 <*> Pulse Oximeter Probe Site Hand, right 1 <*> Flexible Endoscopes Used Gastroscope 1 <+> Scope Serial Number/Identification Number [facility] Endo - Patient Positioning Entry 1 Procedure [...] Modified By: Moira Jensen Rn 01/06/21 12:48:41 [facility] Endo - Patient Positioning Audit 01/06/21 12:48:41 Rebar Bender: [id number] Modifier: [id number] 1 <*> Procedure Esophagogastroduodenoscopy, Gastric Biopsy, Esophageal Biopsy 01/06/21 12:45:27 Rebar Bender: [id number] Modifier: [id number] 1 <*> Procedure Esophagogastroduodenoscopy, Gastric Biopsy 01/06/21 12:44:50 Rebar Bender: [id number] Modifier: [id number] 1 <*> Procedure Esophagogastroduodenoscopy [facility] Endo - Sign In Entry 1 Patient, Site, Yes Procedure Identified Surgical Consent Yes Confirmed Surgical Site N/A Marked by person performing procedure Airway Hypothermia Risk No Warming Measures No Taken Last Modified By: Moira Jensen Rn 01/06/21 12:31:56 [facility] Endo - Sign Out Entry 1 RN [...] Modified By: Moira Jensen Rn 01/06/21 13:05:40 [facility] Endo - Surgical Procedures Entry 1 Entry [...] Mcclintock, Molly, Lou 01/06/21 13:05:42 01/06/21 13:05:42 [facility] Endo - Surgical Procedures Audit 01/06/21 13:05:42 Rebar Bender: [id number] Modifier: [id number] <+> 3 Stop <+> 4 Stop <+> 5 Stop 01/06/21 13:05:13 Rebar Bender: [id number] Modifier: [id number] 1 <*> Procedure Colonoscopy 1 <*> Start 01/06/21 12:45:00 1 <+> Stop 1 <+> Physician States Cecum Reached 2 <*> Procedure Esophagogastroduodenoscopy 2 <+> Stop 01/06/21 12:48:40 Rebar Bender: [id number] Modifier: [id number] <+> 5 Procedure <+> 5 Primary Procedure <+> 5 Primary Surgeon <+> 5 Specialty <+> 5 Start <+> 5 Wound Class <+> 5 Anesthesia Type 01/06/21 12:47:35 Rebar Bender: [id number] Modifier: [id number] <+> 1 Start <+> 2 Start <+> 3 Start <+> 4 Start 01/06/21 12:45:25 Rebar Bender: [id number] Modifier: [id number] <+> 4 Procedure <+> 4 Primary Procedure <+> 4 Primary Surgeon <+> 4 Specialty <+> 4 Wound Class <+> 4 Anesthesia Type 01/06/21 12:44:49 Rebar Bender: [id number] Modifier: [id number] <+> 3 Procedure <+> 3 Primary Procedure <+> 3 Primary Surgeon <+> 3 Specialty <+> 3 Wound Class <+> 3 Anesthesia Type <+> 3 Additional Procedure Description [facility] Endo - Time Out Entry 1 Procedure [...] Modified By: Moira Jensen Rn 01/06/21 12:48:42 [facility] Endo - Time Out Audit 01/06/21 12:48:42 Rebar Bender: [id number] Modifier: [id number] 1 <*> Procedure to be Performed Colonoscopy, Esophagogastroduodenoscopy, Gastric Biopsy, Esophageal Biopsy 01/06/21 12:45:27 Rebar Bender: [id number] Modifier: [id number] 1 <*> Procedure to be Performed Colonoscopy, Esophagogastroduodenoscopy, Gastric Biopsy 01/06/21 12:44:51 Rebar Bender: [id number] Modifier: [id number] 1 <*> Procedure to be Performed Colonoscopy, Esophagogastroduodenoscopy Case Comments <None> Finalized By: Moira Jensen Rn Document Signatures Signed By: Moira Jensen Rn 01/06/21 13:06 Electronically signed by Humera [facility] Conversion Line Leader Cerner at 02/18/2023 5:01 PM CDT documented in this encounter Plan of Treatment Not on file documented as of this encounter Visit Diagnoses Not on filedocumented in this encounter
--- OUTSIDE RECORDS SUMMARY | 2025-07-09 09:52 | XMS_ITS | Encounter Summary ---
Author Organization [employer] ([place], [place], [place], [place]) Address [address] [place] [address] Care Team Providers Care Glass Installer Technician Name Role Phone Unavailable Primary Care Provider Unavailabl e Encounter Details Date Type Department Care Team (Late st Contact Info) Description 01/04/2021 Transcribed Document [facility] [place] [facility] [place] [address] ProviderDarrell MD [address] [place] [phone] Social History Tobacco Use Types Packs/Day Years Used Date Smoking Tobacco: Never Assessed Comments Unknown Sex and Gender Information Value Date Recorded Sex Assigned at Not on file Legal Sex Female 6:16 PM CDT Gender Identity Not on file Sexual Orientation Not on file documented as of this encounter Miscellaneous Notes * Cerner Conversion Note - Historical ProviderMD - 01/04/2021 2:39 PM SALES ASSOCIATE FISHING DATE OF SERVICE: 12/21/2020 The patient's height [...] for oxygen therapy. Clinical correlation is suggested. /[id number] MD XIAO Roberson/MIRIAN / XIAO / MISAEL /[id number] Electronically signed by Interface, [facility] Conversion Furnace Brazer Cerner at 02/18/2023 5:14 PM CDT documented in this encounter Plan of Treatment Not on file documented as of this encounter Visit Diagnoses Not on filedocumented in this encounter
--- OUTSIDE RECORDS SUMMARY | 2025-07-09 09:52 | XMS_ITS | Encounter Summary ---
Author Organization [employer] ([place], [place], [place], [place]) Address [address] [place] [address] Care Team Providers Care Financial Legal Assistant Name Role Phone Unavailable Primary Care Provider Unavailabl e Encounter Details Date Type Department Care Team (Late st Contact Info) Description 09/17/2019 Transcribed Document [facility] [place] Family Medicine [facility] [place] [address] ProviderDarrell MD [address] [place] [phone] Social History Tobacco Use Types Packs/Day Years Used Date Smoking Tobacco: Never Assessed Comments Unknown Sex and Gender Information Value Date Recorded Sex Assigned at Not on file Legal Sex Female 6:16 PM CDT Gender Identity Not on file Sexual Orientation Not on file documented as of this encounter Miscellaneous Notes * Cerner Conversion Note - Historical ProviderMD - 09/17/2019 1:43 PM LOCAL COMBINATION TRUCK DRIVER DATE OF ADMISSION: 09/17/2019 HISTORY: This is [...] 1 to 2 weeks to re-evaluate her. /[id number] Pepe Krishna MD, BLAKE Pain Certified EN/MIRIAN / EN / MODL CC: Janes Mason M.D. Electronically signed by [employer]era, [facility] Conversion Screener Perfumer Cerner at 02/18/2023 5:03 PM CDT documented in this encounter Plan of Treatment Not on file documented as of this encounter Visit Diagnoses Not on filedocumented in this encounter
--- OUTSIDE RECORDS SUMMARY | 2025-07-09 09:52 | XMS_ITS | Encounter Summary ---
Author Organization [employer] ([place], [place], [place], [place]) Address [address] [place] [address] Care Team Providers Care Race Steward Name Role Phone Unavailable Primary Care Provider Unavailabl e Encounter Details Date Type Department Care Team (Late st Contact Info) Description 09/24/2019 Transcribed Document [facility] [place] [facility] [address] Darrell Flores MD [address] [place] [phone] Social History Tobacco Use Types Packs/Day Years Used Date Smoking Tobacco: Never Assessed Comments Unknown Sex and Gender Information Value Date Recorded Sex Assigned at Not on file Legal Sex Female 6:16 PM CDT Gender Identity Not on file Sexual Orientation Not on file documented as of this encounter Miscellaneous Notes * Cerner Conversion Note - Darrell Flores MD - 09/24/2019 11:59 AM CHILD CARE GIVER DATE OF PROCEDURE: 09/24/2019 SURGEON: Pepe Krishna [...] to continue with the same plan. 1. [place] 7.5/325 three times a day. 2. Lyrica 100 mg 3 times a day. 3. Robaxin 750 mg 3 times a day. 4. Movantik 25 mg 1 a day. 5. I am going to see the patient after 2 to 4 weeks to re-evaluate her. /[id number] Pepe Krishna MD, BLAKE Pain Certified EN/MIRIAN / EN / MODL /[id number] Electronically signed by Humera, [facility] Conversion Gauge Maker Cerner at 02/18/2023 5:03 PM CDT documented in this encounter Plan of Treatment Not on file documented as of this encounter Visit Diagnoses Not on filedocumented in this encounter
--- OUTSIDE RECORDS SUMMARY | 2025-07-09 09:52 | XMS_ITS | Encounter Summary ---
Author Organization [employer] ([place], [place], [place], [place]) Address [address] [place] [address] Care Team Providers Care Quality Review Trainer Name Role Phone Unavailable Primary Care Provider Unavailabl e Encounter Details Date Type Department Care Team (Late st Contact Info) Description 01/06/2021 Transcribed Document [facility] [place] [facility] [place] [address] ProviderDarrell MD [address] [place] [phone] Social History Tobacco Use Types Packs/Day Years Used Date Smoking Tobacco: Never Assessed Comments Unknown Sex and Gender Information Value Date Recorded Sex Assigned at Not on file Legal Sex Female 6:16 PM CDT Gender Identity Not on file Sexual Orientation Not on file documented as of this encounter Miscellaneous Notes * Cerner Conversion Note - Historical ProviderMD - 01/06/2021 12:45 PM REPACKER [facility] PACU Summary Primary Physician: SEA OLSON MD Finalized Date/Time: 01/06/21 13:56:56 Pt. Name: FERMIN BARR/Sex: 1965 Female Med Rec #: [id number] Physician: SEA OLSON MD Financial #: [id number] Pt. Type: O Room/Bed: END/ Admit/Disch: 01/06/21 11:16:00 - 01/06/21 13:55:00 Institution: [facility] PACU Case Times Entry 1 In PACU I 01/06/21 13:10:00 Ready for PACU 01/06/21 13:50:00 Discharge Discharge from PACU 01/06/21 13:56:00 I Last Modified By: Nessa Islas RN 01/06/21 13:56:53 [facility] Endo PACU Case Times Audit 01/06/21 13:56:53 Internal Corrosion Specialist: [id number] Modifier: [id number] <+> 1 Ready for PACU Discharge <+> 1 Discharge from PACU I Finalized By: Nessa Islas RN Document Signatures Signed By: Nessa Islas RN 01/06/21 13:56 documented in this encounter Plan of Treatment Not on file documented as of this encounter Visit Diagnoses Not on filedocumented in this encounter
--- OUTSIDE RECORDS SUMMARY | 2025-07-09 09:52 | XMS_ITS | Encounter Summary ---
Author Organization [employer] ([place], [place], [place], [place]) Address [address] [place] [address] Care Team Providers Care Search Lead Name Role Phone Unavailable Primary Care Provider Unavailabl e Encounter Details Date Type Department Care Team (Late st Contact Info) Description 02/09/2019 Transcribed Document [facility] [place] [facility] [place] [address] ProviderDarrell MD [address] [place] [id number] Social History Tobacco Use Types Packs/Day Years [...] patient states that she did see her contract graphic designer and has some of her COPD medications [...] filled. The patient does continue to take [place] 7.5/325 mg 2-3 times a day as [...] 5. Long-term opioid use. PLAN: 1. Refill [place] 7.5/325 mg 2-3 times a day as [...] Dr. Janes Mason Electronically signed by Humera [facility] Conversion Early Childhood Education Instructor Cerner at 02/18/2023 4:54 PM CDT documented in this encounter Plan of Treatment Not on file documented as of this encounter Visit Diagnoses Not on filedocumented in this encounter
--- OUTSIDE RECORDS SUMMARY | 2025-07-09 09:52 | XMS_ITS | Encounter Summary ---
Author Organization [employer] ([place], [place], [place], [place]) Address [address] [place] [address] Care Team Providers Care Gold Leaf Gilder Name Role Phone Unavailable Primary Care Provider Unavailabl e Encounter Details Date Type Department Care Team (Late st Contact Info) Description 07/17/2019 Transcribed Document [facility] [place] [facility] [place] [address] ProviderDarrell MD [address] [place] [phone] Social History Tobacco Use Types Packs/Day Years [...] Lyrica 100 mg 3 times daily and [place] 7.5/325 mg 3 times daily. The patient [...] with alcohol, or self-escalate it. 2. Continue [place] 7.5/325 mg 3 times daily as needed. [...]
--- OUTSIDE RECORDS SUMMARY | 2025-07-09 09:52 | XMS_ITS | Encounter Summary ---
Author Organization [employer] ([place], [place], [place], [place]) Address [address] [place] [address] Care Team Providers Care Dairy Bacteriologist Name Role Phone Unavailable Primary Care Provider Unavailabl e Encounter Details Date Type Department Care Team (Late st Contact Info) Description 01/06/2021 Transcribed Document [facility] [place] [address] ProviderDarrell MD [address] [place], [place] [phone] Social History Tobacco Use Types Packs/Day Years Used Date Smoking Tobacco: Never Assessed Comments Unknown Sex and Gender Information Value Date Recorded Sex Assigned at Not on file Legal Sex Female 6:16 PM CDT Gender Identity Not on file Sexual Orientation Not on file documented as of this encounter Miscellaneous Notes * Cerner Conversion Note - Historical ProviderMD - 01/06/2021 1:08 PM SUBSTANCE ADDICTION COORDINATOR Patient Education Materials Follows: Hemorrhoids Hemorrhoids are [...] times a day. General instructions ??? Take cuyw-jlg-vxglbwh and prescription medicines only as told by [...] 07/30/2009 Document Revised: 10/29/2019 Document Reviewed: 03/12/2019 [employer] Patient Education ? 2020 [employer] Instructions for after EGD with Dilation [...] activities are safe for you. ??? Take mdhy-vik-clcugxf and prescription medicines only as told by [...] 01/27/2002 Document Revised: 10/24/2018 Document Reviewed: 06/06/2018 [employer] Patient Education ? 2020 [employer]. documented in this encounter Plan of Treatment Not on file documented as of this encounter Visit Diagnoses Not on filedocumented in this encounter
--- OUTSIDE RECORDS SUMMARY | 2025-07-09 09:52 | XMS_ITS | Encounter Summary ---
Author Organization [employer] ([place], [place], [place], [place]) Address [address] [place] [address] Care Team Providers Care Coin Machine Servicer Repairer Name Role Phone Unavailable Primary Care Provider Unavailabl e Encounter Details Date Type Department Care Team (Late st Contact Info) Description 01/06/2021 Transcribed Document [facility] [place] [facility] [place] [address] ProviderDarrell MD [address] [place] [phone] Social History Tobacco Use Types Packs/Day Years Used Date Smoking Tobacco: Never Assessed Comments Unknown Sex and Gender Information Value Date Recorded Sex Assigned at Not on file Legal Sex Female 6:16 PM CDT Gender Identity Not on file Sexual Orientation Not on file documented as of this encounter Miscellaneous Notes * Cerner Conversion Note - Historical ProviderMD - 01/06/2021 1:08 PM SEGREGATOR [facility] [place] [address] FERMIN BARR :1965 Visit Time:01/06/2021 [...] OLSON When Only if needed Where: [address] [place] [address]- [facility] (1) Medications What How Much When Instructions [...] times a day. General instructions ??? Take tupf-wuo-zsdqshy and prescription medicines only as told by [...] 07/30/2009 Document Revised: 10/29/2019 Document Reviewed: 03/12/2019 [employer] Patient Education ?? 2020 [employer]. Instructions for after EGD with Dilation 1. [...] activities are safe for you. ??? Take etyv-wnj-jblecbb and prescription medicines only as told by [...] Reviewed: 06/06/2018 Elsevier Patient Education ?? 2020 [employer] Emergency Awareness and Preventative Care STROKE [...] Assistance with quitting is available by contacting 9-119-YYPD-NOW. This is a free resource providing counseling, [...] was given the opportunity to ask questions. Patient/Engineering Drafter Name: Patient/Engineering Drafter Signature: Relationship to Patient: Clinician/Hospital Engineering Drafter Signature: Date: Electronically signed by Interface, [facility] Conversion Master Brewer Robby at 02/18/2023 5:06 PM CDT documented in this encounter Plan of Treatment Not on file documented as of this encounter Visit Diagnoses Not on filedocumented in this encounter
--- OUTSIDE RECORDS SUMMARY | 2025-07-09 09:52 | XMS_ITS | Encounter Summary ---
Author Organization Healthcare Address [address] [place] [address] Care Team Providers Care Hospitality Internship Name Role Phone Janse Mason MD Primary Care Provider [phone] Encounter Details Date Type Department Care Team (Late st Contact Info) Description 02/28/2023 [facility] [address] [place] [address] Bud Shea MD [address] [facility], [address] [address] Other headache syndrome (Primary Dx) Social History [...] Primary documented in this encounter Care Teams Hospitality Internship Relationship Specialty Start Date End Date Janes Mason MD [address] [place] [address] PCP - General 03/17/21 documented as of this encounter
--- OUTSIDE RECORDS SUMMARY | 2025-07-09 09:52 | XMS_ITS | Encounter Summary ---
Author Organization [employer] ([place], [place], [place], [place]) Address [address] [place] [address] Care Team Providers Care Computer Architect Name Role Phone Unavailable Primary Care Provider Unavailabl e Encounter Details Date Type Department Care Team (Late st Contact Info) Description 05/11/2019 Transcribed Document [facility] [place] Family Medicine [facility] [place] [address] ProviderDarrell MD [address] [place] [address] Social History Tobacco Use Types Packs/Day Years [...] says that she has been taking her [place] 2-3 times daily as needed. The patient [...] Lyrica 100 mg 3 times daily and [place] 7.5/325 mg 2-3 times daily as needed. [...] to give the patient 7.5/325 mg of [place] 3 times a day consistently with #90 [...]
--- OUTSIDE RECORDS SUMMARY | 2025-07-09 09:52 | XMS_ITS | Encounter Summary ---
Author Organization [employer] ([place], [place], [place], [place]) Address [address] [place] [address] Care Team Providers Care Consulting Technical Manager Name Role Phone Unavailable Primary Care Provider Unavailabl e Encounter Details Date Type Department Care Team (Late st Contact Info) Description 04/14/2019 Transcribed Document [facility] [place] Family Medicine [facility] [place] [address] ProviderDarrell MD [address] [place] [address] Social History Tobacco Use Types Packs/Day Years [...]
--- OUTSIDE RECORDS SUMMARY | 2025-07-09 09:52 | XMS_ITS | Encounter Summary ---
Author Organization [employer] ([place], [place], [place], [place]) Address [address] [place] [address] Care Team Providers Care Telephoner Name Role Phone Unavailable Primary Care Provider Unavailabl e Encounter Details Date Type Department Care Team (Late st Contact Info) Description 11/24/2018 Transcribed Document [facility] [facility] [place] [address] ProviderDarrell MD [address] [place] [address] Social History Tobacco Use Types Packs/Day Years Used Date Smoking Tobacco: Never Assessed Comments Unknown Sex and Gender Information Value Date Recorded Sex Assigned at Not on file Legal Sex Female 6:16 PM CDT Gender Identity Not on file Sexual Orientation Not on file documented as of this encounter Miscellaneous Notes * [employer] Conversion Note - Historical MD Mark - 11/24/2018 3:56 PM CRYPTOLOGIST DATE OF ADMISSION: 11/24/2018 HISTORY OF PRESENT [...] it. The patient does continue to take [place] 7.5/325 mg 2-3 times a day as [...] radiculopathy. 4. Cervical spondylosis. PLAN: 1. Refill [place] 7.5/325 mg 2-3 times a day as [...] Dr. Janes Mason Electronically signed by [employer] Conversion Auricular Detoxification Specialist Cerner at 02/18/2023 4:59 PM CDT documented in this encounter Plan of Treatment Not on file documented as of this encounter Visit Diagnoses Not on filedocumented in this encounter
--- OUTSIDE RECORDS SUMMARY | 2025-07-09 09:52 | XMS_ITS ---
Laboratory report Created on: July 06, 2025 FERMIN DEVRIES : 1965 Sex: Female Author Organization Unknown PROBLEMS Problems List Code Description RESULTS Laboratory Orders Date Order Code Test 2025-06-29 [id number] PREGABALIN, URIN E Laboratory Results Date LOINC Test Value Unit Reference Range Interpre tation 2025-06-29 [id number] PREGABALIN, URINE N UG/ML
--- OUTSIDE RECORDS SUMMARY | 2025-07-09 09:52 | XMS_ITS | Encounter Summary ---
Author Organization [employer] ([place], [place], [place], [place]) Address [address] [place] [address] Care Team Providers Care Lvn Lpn Name Role Phone Unavailable Primary Care Provider Unavailabl e Encounter Details Date Type Department Care Team (Late st Contact Info) Description 01/06/2021 Transcribed Document [facility] Family Medicine [facility] [place] [address] ProviderDarrell MD [facility] [place] [phone] Social History Tobacco Use Types Packs/Day Years Used Date Smoking Tobacco: Never Assessed Comments Unknown Sex and Gender Information Value Date Recorded Sex Assigned at Not on file Legal Sex Female 6:16 PM CDT Gender Identity Not on file Sexual Orientation Not on file documented as of this encounter Miscellaneous Notes * [employer]ner Conversion Note - Historical ProviderMD - 01/06/2021 12:16 PM ASTROPHYSICS PROFESSOR Pre Procedure Adult Entered On: 01/06/2021 12:18 EST Performed On: 01/06/2021 12:16 EST by Ligia Walter RN Height and Weight, Clinical Dosing Height Source : Stated Height Entry Format : [place] Height, Feet : 5 ft(Converted to: 152 cm, 60 Inch) Height, Inches : 4 Inch(Converted to: 0 ft 4 Inch, 10.16 cm) Clinical Height : 162.56 cm Weight Source : Standing scale Weight Entry Format : [place] Clinical Dosing Weight : 99.15 kg Weight, Pounds : 218 lb Weight, Ounces : 2 oz Body Surface Area (BSA) : 2.03 m2 Body Mass Index : 37.5 kg/m2 (HI) [place] Body Weight : 54 kg Ligia Walter [...] Ligia Walter RN - 01/06/2021 12:16 EST [place] Suicide Severity Rating Scale (C-SSRS) CSSRS Past [...] Info Preferred Name : wilfred Support Person/Patient Continuous Linter Drier Operator : Yes Support Person/Pt Rep Name : Chrissy Barr, Marina Perez, mother Support Person/Pt Rep Contact Information : [phone] Want Family/Rep/Phys Notified of Admit : No Emergency Contact #1 : chrissy Emergency Contact #1 Emergency Contact #1 Relationship : spouse Emergency Contact #2 : Emergency Contact #2 Phone Number : Emergency Contact #2 Relationship : Primary Language : Qatari Preferred Communication Mode : Verbal Communication Barrier : None Knock Out Hand Needed : No Ligia Walter RN - 01/06/2021 12:16 EST Sleep Apnea Risk Assmt BiPAP/CPAP Ordered for Home Use : No Hx of Obstructive Sleep Apnea Diagnosis : Yes Age over 50 Years Old : Yes Gender Male : No Ligia Walter RN - 01/06/2021 12:16 EST Jrodan Scale Jordan Sensory Perception : No impairment [...] Scale Risk Level : 0-24 Low Risk [place] Fall Interventions : Adequate lighting, Non-slip footwear, Wheels locked Ligia Walter RN - 01/06/2021 12:16 EST Valuables and Belongings Valuables and Belongings : Clothing, Personal items Clothing : Common streetwear Clothing Disposition : Bedside Personal Items : Cell phone, Purse Personal Items Disposition : Bedside Ligia Walter RN - 01/06/2021 12:16 EST Electronically signed by [facility] Conversion Dentist/Owner Cerner at 02/18/2023 4:52 PM CDT documented in this encounter Plan of Treatment Not on file documented as of this encounter Visit Diagnoses Not on filedocumented in this encounter
--- OUTSIDE RECORDS SUMMARY | 2025-07-09 09:52 | XMS_ITS | Encounter Summary ---
Author Organization [email or web address] ([place], [place], [place], [place]) Address [address] [place] [address] Care Team Providers Care Investment Trader Name Role Phone Unavailable Primary Care Provider Unavailabl e Encounter Details Date Type Department Care Team (Late st Contact Info) Description 11/24/2020 Transcribed Document [facility] [place] [address] ProviderDarrell MD [address] [place] [phone] Social History Tobacco Use Types Packs/Day Years Used Date Smoking Tobacco: Never Assessed Comments Unknown Sex and Gender Information Value Date Recorded Sex Assigned at Not on file Legal Sex Female 6:16 PM CDT Gender Identity Not on file Sexual Orientation Not on file documented as of this encounter Miscellaneous Notes * [employer]ner Conversion Note - Historical ProviderMD - 11/24/2020 3:48 PM NURSE ORTHOPEDIC DATE OF ADMISSION: 11/24/2020 HISTORY OF PRESENT [...] visit and the patient has been afebrile. /[id number] Pepe Krishna MD, BLAKE Pain Certified KR/AQ / KR / MODL CC: REYES BRONSON MD Electronically signed by [employer], [facility] Conversion Internet Consultant Cerner at 02/18/2023 4:50 PM CDT documented in this encounter Plan of Treatment Not on file documented as of this encounter Visit Diagnoses Not on filedocumented in this encounter
--- OUTSIDE RECORDS SUMMARY | 2025-07-09 09:52 | XMS_ITS | Referral Summary ---
Author Organization [employer] ([place], [place], [place], [place]) Address [address] [place] [address] Care Team Providers Care Crystal Slicer Name Role Phone Unavailable Primary Care [...] HYDROcodone-elaine taminophen (NORCO) 5-325 mg per tablet Becker 5 mg-325 mg tablet Take 1 tablet [...] on file Insurance MEDICARE PART A B /[facility] Member Subscriber Plan / Payer (Ef fective 2023-Present) Name:Darshana Barr Relation to Subscriber:Self Name:Darshana Barr Payer ID:Not on file Group ID:[id number] Type:Not on file Address: [facility] [id number] [place] [id number]
--- OUTSIDE RECORDS SUMMARY | 2025-07-09 09:52 | XMS_ITS | Encounter Summary ---
Author Organization [employer] ([place], [place], [place], [place]) Address [address] [place] [address] Care Team Providers Care Personal Care Assistant Name Role Phone Unavailable Primary Care Provider Unavailabl e Encounter Details Date Type Department Care Team (Late st Contact Info) Description 10/18/2020 Transcribed Document [facility] Family Medicine [facility] [place] [address] ProviderDarrell MD [facility] [place] [address] Social History Tobacco Use Types Packs/Day Years Used Date Smoking Tobacco: Never Assessed Comments Unknown Sex and Gender Information Value Date Recorded Sex Assigned at Not on file Legal Sex Female 6:16 PM CDT Gender Identity Not on file Sexual Orientation Not on file documented as of this encounter Miscellaneous Notes * [employer] Conversion Note - Historical ProviderMD - 10/18/2020 9:38 AM MAINTENANCE GROUNDMAN CR Chest 2 Vws Ordered: 10/17/2020 Auth (Verified) Reason for Exam: SOA 10/18/2020 08:53 10/18/2020 09:38 (QUANG OLIVA APRN) Reviewed by Provider, No further action required x1 documented in this encounter Plan of Treatment Not on file documented as of this encounter Visit Diagnoses Not on filedocumented in this encounter
--- OUTSIDE RECORDS SUMMARY | 2025-07-09 09:52 | XMS_ITS | Encounter Summary ---
Author Organization [employer] ([place], [place], [place], [place]) Address [address] [place] [address] Care Team Providers Care Digital Media Associate Name Role Phone Unavailable Primary Care Provider Unavailabl e Encounter Details Date Type Department Care Team (Late st Contact Info) Description 12/15/2019 Transcribed Document [facility] [place] [address] ProviderDarrell MD [address] [place] [phone] Social History Tobacco Use Types Packs/Day Years Used Date Smoking Tobacco: Never Assessed Comments Unknown Sex and Gender Information Value Date Recorded Sex Assigned at Not on file Legal Sex Female 6:16 PM CDT Gender Identity Not on file Sexual Orientation Not on file documented as of this encounter Miscellaneous Notes * [employer]ner Conversion Note - Historical ProviderMD - 12/15/2019 1:46 PM SENIOR QUANTITY SURVEYOR DATE OF ADMISSION: 12/15/2019 HISTORY OF PRESENT [...] Lyrica 100 mg three times daily, and [place] 7.5/325 mg three times daily as needed. [...] 100 mg three times daily. 4. Continue [place] 7.5/325 mg three times daily as needed. [...] patient to attend her workup with the gas manager. 9. We are going to see the patient back in 1 month to re-evaluate. 10. The assessment and plan for today's visit have been reviewed by Dr. Krishna, however, I have prescribed the medications for this patient's treatment plan today. /[id number] Jazz Orta APRN PITA/AQ / PITA / MODL CC: MD Nneka Alcantar APRN documented in this encounter Plan of Treatment Not on file documented as of this encounter Visit Diagnoses Not on filedocumented in this encounter
--- OUTSIDE RECORDS SUMMARY | 2025-07-09 09:52 | XMS_ITS | Encounter Summary ---
Author Organization [employer] ([place], [place], [place], [place]) Address [address] [place] [address] Care Team Providers Care Traffic Police Officer Name Role Phone Unavailable Primary Care Provider Unavailabl e Encounter Details Date Type Department Care Team (Late st Contact Info) Description 01/04/2021 Transcribed Document [facility] [place] [facility] [place] [address] ProviderDarrell MD [address] [place] [phone] Social History Tobacco Use Types Packs/Day Years Used Date Smoking Tobacco: Never Assessed Comments Unknown Sex and Gender Information Value Date Recorded Sex Assigned at Not on file Legal Sex Female 6:16 PM CDT Gender Identity Not on file Sexual Orientation Not on file documented as of this encounter Miscellaneous Notes * [employer] Conversion Note - Historical ProviderMD - 01/04/2021 2:42 PM OPERATIONS SYSTEMS SPECIALIST DATE OF SERVICE: 12/21/2020 Height 64 inches [...] was normal. 4. Clinical correlation is suggested. /[id number] Della Ortiz MD HE/AQ / XIAO / MODL /[id number] documented in this encounter Plan of Treatment Not on file documented as of this encounter Visit Diagnoses Not on filedocumented in this encounter
--- OUTSIDE RECORDS SUMMARY | 2025-07-09 09:52 | XMS_ITS | Encounter Summary ---
Author Organization [employer] ([place], [place], [place], [place]) Address [address] [place] [address] Care Team Providers Care Wooden Frame Builder Name Role Phone Unavailable Primary Care Provider Unavailabl e Encounter Details Date Type Department Care Team (Late st Contact Info) Description 01/06/2021 Transcribed Document [facility] [place] [facility] [place] [address] ProviderDarrell MD [address] [place] [address] [phone] Social History Tobacco Use Types Packs/Day Years Used Date Smoking Tobacco: Never Assessed Comments Unknown Sex and Gender Information Value Date Recorded Sex Assigned at Not on file Legal Sex Female 6:16 PM CDT Gender Identity Not on file Sexual Orientation Not on file documented as of this encounter Miscellaneous Notes * Cerner Conversion Note - Darrell Flores MD - 01/06/2021 1:10 PM REAL ESTATE COORDINATOR Patient: FERMIN BARR Age: 55 Years Sex: [...] 12:57:00 (01/06/21 13:05:13) Electronically signed by [facility] Conversion Medical Associate Cerner at 02/18/2023 4:46 PM CDT documented in this encounter Plan of Treatment Not on file documented as of this encounter Visit Diagnoses Not on filedocumented in this encounter
--- OUTSIDE RECORDS SUMMARY | 2025-07-09 09:52 | XMS_ITS | Encounter Summary ---
Author Organization [employer] ([place], [place], [place], [place]) Address [address] [place] [address] Care Team Providers Care Hospitalist Name Role Phone Unavailable Primary Care Provider Unavailabl e Encounter Details Date Type Department Care Team (Late st Contact Info) Description 01/06/2021 Transcribed Document [facility] [place] [facility] [place] [address] ProviderDarrell MD [address] [place] [phone] Social History Tobacco Use Types Packs/Day Years Used Date Smoking Tobacco: Never Assessed Comments Unknown Sex and Gender Information Value Date Recorded Sex Assigned at Not on file Legal Sex Female 6:16 PM CDT Gender Identity Not on file Sexual Orientation Not on file documented as of this encounter Miscellaneous Notes * Cerner Conversion Note - Historical ProviderMD - 01/06/2021 12:30 PM BOTTLE AND GLASS INSPECTOR [facility] [employer] PreOp Summary Primary Physician: SEA OLSON MD Finalized Date/Time: 01/06/21 12:22:57 Pt. Name: FERMIN DEVRIES/Sex: 1965 Female Med Rec #: [id number] Physician: SEA OLSON MD Financial #: [id number] Pt. Type: O Room/Bed: END/ Admit/Disch: 01/06/21 11:16:00 - Institution: [facility] PreOp Case Times Entry 1 In Preop 01/06/21 12:05:00 Ready for Holding n/a Room Patient Ready for n/a Surgery Patient Out of Preop 01/06/21 12:22:00 Patient Out of n/a Holding Room Last Modified By: Ligia Walter RN 01/06/21 12:22:55 Finalized By: Ligia Walter, RN Document Signatures Signed By: Ligia Walter RN 01/06/21 12:22 Electronically signed by Paul Grubbs Conversion Photocopying Equipment Mechanic Cerner at 02/18/2023 4:51 PM CDT documented in this encounter Plan of Treatment Not on file documented as of this encounter Visit Diagnoses Not on filedocumented in this encounter
--- OUTSIDE RECORDS SUMMARY | 2025-07-09 09:52 | XMS_ITS | Encounter Summary ---
Author Organization [employer] ([place], [place], [place], [place]) Address [address] [place] [address] Care Team Providers Care Molded Frames Assembler Name Role Phone Unavailable Primary Care Provider Unavailabl e Encounter Details Date Type Department Care Team (Late st Contact Info) Description 10/30/2018 Transcribed Document [facility] [place] Family Medicine [facility] [place] [address] ProviderDarrell MD [address] [place] [phone] Social History Tobacco Use Types Packs/Day Years Used Date Smoking Tobacco: Never Assessed Comments Unknown Sex and Gender Information Value Date Recorded Sex Assigned at Not on file Legal Sex Female 6:16 PM CDT Gender Identity Not on file Sexual Orientation Not on file documented as of this encounter Miscellaneous Notes * Cerner Conversion Note - Historical MD Mark - 10/30/2018 1:58 PM PET FOOD DEBONER DATE OF ADMISSION: 10/30/2018 HISTORY OF PRESENT [...] patient recently followed back up with her hoop punch and coiler operator helper and states that she was diagnosed with COPD stage 2. She states that they are starting on Symbicort and Spiriva to try to help her with it. The patient states that also they did tell her that she does have a small lung nodule in her lower lobe and that will heal itself. The patient does continue to take [place] 7.5/325 mg 2-3 times a day as [...] radiculopathy. 4. Cervical spondylosis. PLAN: 1. Refill [place] 7.5/325 mg 2-3 times a day as [...] Dr. Janes Mason Electronically signed by [employer] [facility] Conversion Dealer Analyst Cerner at 02/18/2023 4:46 PM CDT documented in this encounter Plan of Treatment Not on file documented as of this encounter Visit Diagnoses Not on filedocumented in this encounter
--- OUTSIDE RECORDS SUMMARY | 2025-07-09 09:52 | XMS_ITS | Encounter Summary ---
Author Organization [employer] ([place], [place], [place], [place]) Address [address] [place] [address] Care Team Providers Care Project Control Analyst Name Role Phone Unavailable Primary Care Provider Unavailabl e Encounter Details Date Type Department Care Team (Late st Contact Info) Description 08/17/[address] [facility] [place] [facility] [place] [address] ProviderDarrell MD [address] [place] [phone] Social History Tobacco Use Types Packs/Day Years [...] Dr. Janes Mason Electronically signed by [employer] [facility] Conversion Mushroom Farmer Cerner at 02/18/2023 4:52 PM CDT documented in this encounter Plan of Treatment Not on file documented as of this encounter Visit Diagnoses Not on filedocumented in this encounter
--- OUTSIDE RECORDS SUMMARY | 2025-07-09 09:52 | XMS_ITS | Clinical Summary ---
Author Organization [facility] Address [address] [place] [address] Care Team Providers Care Line Mechanic Name Role Phone Janes Mason MD Primary Care Provider [phone] Allergies Active Allergy Reactions Criticality Noted Date [...] to complete this topic Insurance Care Teams Line Mechanic Relationship Specialty Start Date End Date Janes Mason MD [address] [place] [address] PCP - General Family Medicine 11/13/12
[2025-07-09 09:58] VITALS: BP 146/69; PULSE 65; RESP 18; TEMP 36.7; O2SAT 97
[2025-07-09] MEDS: BENRALIZUMAB 30 MG SUBCUT (09:59)
== END 2025-07-09 10:30 | disposition home or self-care (01) ==
LOC: INF 09:49
PROVIDERS: PCP Family Medicine; Visit Provider Internal Medicine Pulmonary Disease
DX: J82.83 Eosinophilic asthma (principal)
CPT/HCPCS: 96372; J0517

== ENCOUNTER 2025-08-06 11:01 | Outpatient (CLI) | payer MEDICARE, BC, SELFPAY ==
--- OUTSIDE RECORDS SUMMARY | 2021-10-13 10:53 | XMS_ITS | Encounter Summary ---
[facility] [address] [place] [address] Care Team Providers Care Stonemason Supervisor Name Role Phone Janes Mason MD Primary Care Provider [phone] Reason for Visit * Diagnostic Imaging (Routine) - Closed Specialty Diagnoses / Procedures Referred By Contac t Referred To Contact Radiology Diagnoses Nontoxic multinodular goiter Procedures US Thyroid Raeann Carlson MD [address] [place] [address] Phone: tel: fax: [facility] [address] [place] [phone] Phone: tel: fax: Referral ID Status Reason Start Date Expiration Date Visits Re quested Visits Authorized [id number] Closed 10/13/2021 10/13/2022 1 1 Encounter Details Date Type Department Care Team (Late st Contact Info) Description 10/13/2021 9:53 AM EST Hospital Encounter [facility] [address] [place] [phone] Social History Tobacco Use Types Packs/Day [...] on filedocumented in this encounter Care Teams Stonemason Supervisor Relationship Specialty Start Date End Date Janes Mason MD [address] [place] [address] PCP - General Family Medicine 07/11/21 documented as of this encounter
--- OUTSIDE RECORDS SUMMARY | 2025-08-06 11:05 | XMS_ITS | Encounter Summary ---
Author Organization [employer] ([place], [place], [place], [place]) Address [address] [place] [address] Care Team Providers Care Fire Pilot Name Role Phone Unavailable Primary Care Provider Unavailabl e Encounter Details Date Type Department Care Team (Late st Contact Info) Description 04/11/2020 Transcribed Document [facility] [place] Family Medicine [address] [place] [address] ProviderDarrell MD [address] [place] [address] Social History Tobacco Use Types Packs/Day Years [...] she is still trying to decrease her [place] usage, however, she had to go back [...] have some constipation, but she uses something [id number] that does help with that. The patient is also taking diclofenac as well as Robaxin and Lyrica in addition to the Way[place] and denies any adverse effects from any [...] 100 mg 3 times daily. 6. Continue [place] 7.5/325 mg 3 times daily as needed. [...] medications for this patient's treatment plan today. /[id number] FLOYD Mullins/MIRIAN / PITA / MODL CC: Janes Mason MD Electronically signed by [employer], [facility] Conversion Applications Development Consultant Cerner at 02/18/2023 5:04 PM CDT documented in this encounter Plan of Treatment Not on file documented as of this encounter Visit Diagnoses Not on filedocumented in this encounter
--- OUTSIDE RECORDS SUMMARY | 2025-08-06 11:05 | XMS_ITS | Encounter Summary ---
Author Organization [employer] ([place], [place], [place], [place]) Address [address] [place] [address] Care Team Providers Care Rfp Writer Name Role Phone Unavailable Primary Care Provider Unavailabl e Encounter Details Date Type Department Care Team (Late st Contact Info) Description 08/04/2020 Transcribed Document [facility] [place] [address] [place] [address] ProviderDarrell MD [address] [place] [address] Social History Tobacco Use Types Packs/Day Years [...] visit and the patient has been afebrile. /[id number] Pepe Krishna MD, BLAKE Pain Certified EN/MIRIAN / EN / MODL CC: Dr. Janes Mason Electronically signed by [facility] Conversion Pmo Analyst Cerner at 02/18/2023 4:48 PM CDT documented in this encounter Plan of Treatment Not on file documented as of this encounter Visit Diagnoses Not on filedocumented in this encounter
--- OUTSIDE RECORDS SUMMARY | 2025-08-06 11:05 | XMS_ITS | Encounter Summary ---
Author Organization [employer] ([place], [place], [place], [place]) Address [address] [place] [address] Care Team Providers Care Consumer Credit Counselor Name Role Phone Unavailable Primary Care Provider Unavailabl e Encounter Details Date Type Department Care Team (Late st Contact Info) Description 02/15/2020 Transcribed Document [facility] [place] Family Medicine [address] [place] [address] ProviderDarrell MD [address] [place] [address] Social History Tobacco Use Types Packs/Day Years [...] following up for medication refills of her Vanderpool and gabapentin. She reports that she is having pain in the left side of her neck. She says the pain never changes. She reports that the pain is [id number] at times. She says that the pain does radiate to the left shoulder. She reports that her pain is an aching sensation. She says she does have associated symptoms of depression and fatigue. She is using cold in addition to taking her Lyrica and Vanderpool as prescribed. The patient says she does [...] and tooth loss. She says that the pool table operator did say she was negative for Sjogren's but she does have an elevated ESR. The patient says that she does have a meteorological aide, Dr. Crow at [facility], however, she has not seen him in [...] 100 mg 3 times daily. 3. Continue Vanderpool 7.5/325 mg 3 times daily as needed. [...] today and make an appointment with her meteorological aide in light of her symptoms so that [...] medications for this patient's treatment plan today. /[id number] FLOYD Mullins/MIRIAN / PITA / MODL documented in this encounter Plan of Treatment Not on file documented as of this encounter Visit Diagnoses Not on filedocumented in this encounter
--- OUTSIDE RECORDS SUMMARY | 2025-08-06 11:05 | XMS_ITS | Encounter Summary ---
Author Organization [employer] ([place], [place], [place], [place]) Address [address] [place] [address] Care Team Providers Care Distribution Technician Name Role Phone Unavailable Primary Care Provider Unavailabl e Encounter Details Date Type Department Care Team (Late st Contact Info) Description 10/17/2020 Transcribed Document [facility] [place] [facility] [place] [address] ProviderDarrell MD [address] [place] [address]751 Social History Tobacco Use Types Packs/Day Years Used Date Smoking Tobacco: Never Assessed Comments Unknown Sex and Gender Information Value Date Recorded Sex Assigned at Not on file Legal Sex Female 6:16 PM CDT Gender Identity Not on file Sexual Orientation Not on file documented as of this encounter Miscellaneous Notes * Cerner Conversion Note - Historical ProviderMD - 10/17/2020 11:14 PM NEEDLE MOLDER ED Discharge Entered On: 10/17/2020 23:14 EST [...]
--- OUTSIDE RECORDS SUMMARY | 2025-08-06 11:05 | XMS_ITS | Encounter Summary ---
Author Organization [employer] ([place], [place], [place], [place]) Address [address] [place] [address] Care Team Providers Care Croze Cutter Helper Name Role Phone Unavailable Primary Care Provider Unavailabl e Encounter Details Date Type Department Care Team (Late st Contact Info) Description 10/17/2020 Transcribed Document [facility] [place] [facility] [place] [address] ProviderDarrell MD [address] [place] [address] Social History Tobacco Use Types Packs/Day Years Used Date Smoking Tobacco: Never Assessed Comments Unknown Sex and Gender Information Value Date Recorded Sex Assigned at Not on file Legal Sex Female 6:16 PM CDT Gender Identity Not on file Sexual Orientation Not on file documented as of this encounter Miscellaneous Notes * Cerner Conversion Note - Historical ProviderMD - 10/17/2020 8:05 PM BEAM WARPER Patient: FERMIN BARR Age: 55 Years Sex: [...]
--- OUTSIDE RECORDS SUMMARY | 2025-08-06 11:05 | XMS_ITS | Encounter Summary ---
Author Organization [employer] ([place], [place], [place], [place]) Address [address] [place] [address] Care Team Providers Care Utilities Equipment Repairer Name Role Phone Unavailable Primary Care Provider Unavailabl e Encounter Details Date Type Department Care Team (Late st Contact Info) Description 10/17/2020 Transcribed Document [facility] [place] [facility] [place] [address] ProviderDarrell MD [address] [place], [place] [address] Social History Tobacco Use Types Packs/Day Years Used Date Smoking Tobacco: Never Assessed Comments Unknown Sex and Gender Information Value Date Recorded Sex Assigned at Not on file Legal Sex Female 6:16 PM CDT Gender Identity Not on file Sexual Orientation Not on file documented as of this encounter Miscellaneous Notes * Cerner Conversion Note - Historical ProviderMD - 10/17/2020 11:15 PM DISPLAYER MERCHANDISE ED Discharge Vital Signs Entered On: 10/17/2020 23:15 EST Performed On: 10/17/2020 23:15 EST by Jeannette Fuller RN ED Discharge Vital Signs Peripheral Pulse Rate : 82 bpm Respiratory Rate : 20 Breaths/Min Systolic Blood Pressure : 121 mmHg Diastolic Blood Pressure : 67 mmHg Oxygen Saturation : 98 % Jeannette Fuller RN - 10/17/2020 23:15 EST Electronically signed by [facility] Conversion Cardiology Clinical Consultant Cerarlin at 02/18/2023 4:50 PM CDT documented in this encounter Plan of Treatment Not on file documented as of this encounter Visit Diagnoses Not on filedocumented in this encounter
--- OUTSIDE RECORDS SUMMARY | 2025-08-06 11:05 | XMS_ITS | Encounter Summary ---
Author Organization [employer] ([place], [place], [place], [place]) Address [address] [place] [address] Care Team Providers Care Tea Leaf Reader Name Role Phone Unavailable Primary Care Provider Unavailabl e Encounter Details Date Type Department Care Team (Late st Contact Info) Description 10/17/2020 Transcribed Document [facility] [place] [address] ProviderDarrell MD [address] [place] [address] Social History Tobacco Use Types Packs/Day Years Used Date Smoking Tobacco: Never Assessed Comments Unknown Sex and Gender Information Value Date Recorded Sex Assigned at Not on file Legal Sex Female 6:16 PM CDT Gender Identity Not on file Sexual Orientation Not on file documented as of this encounter Miscellaneous Notes * Cerner Conversion Note - Historical ProviderMD - 10/17/2020 10:58 PM LOSS PREVENTION OFFICER Electronically signed by [facility] Conversion Oracle Endeca Consultant Cerner at 02/18/2023 4:55 PM CDT documented in this encounter Plan of Treatment Not on file documented as of this encounter Visit Diagnoses Not on filedocumented in this encounter
--- OUTSIDE RECORDS SUMMARY | 2025-08-06 11:05 | XMS_ITS | Encounter Summary ---
Author Organization [employer] ([place], [place], [place], [place]) Address [address] [place] [address] Care Team Providers Care Umbrella Finisher Name Role Phone Unavailable Primary Care Provider Unavailabl e Encounter Details Date Type Department Care Team (Late st Contact Info) Description 10/17/2020 Transcribed Document [facility] [place] Family Medicine [facility] [place] [address] ProviderDarrell MD [address] [place] [address] Social History Tobacco Use Types Packs/Day Years Used Date Smoking Tobacco: Never Assessed Comments Unknown Sex and Gender Information Value Date Recorded Sex Assigned at Not on file Legal Sex Female 6:16 PM CDT Gender Identity Not on file Sexual Orientation Not on file documented as of this encounter Miscellaneous Notes * Cerner Conversion Note - Historical ProviderMD - 10/17/2020 4:38 PM PHARMACY AIDE [place]set Violence Assessment Entered On: 10/17/2020 22:43 [...]
--- OUTSIDE RECORDS SUMMARY | 2025-08-06 11:05 | XMS_ITS | Clinical Summary ---
Author Organization [facility] Address [address] [id number] Care Team Providers Care Rail Car Welder Name Role Phone Janes Mason MD Primary Care Provider [phone] Social History Tobacco Use Types Packs/Day Years [...] 50 + Years (2 of 2 - PCV20 or PCV21) 10/24/2019 10/24/2018 [id number] Vaccine ( season) 2025 09/14/2021, 02/24/2021, 01/10/2021 UKY-Influenza Vaccine (#1) 2025 [...] to complete this topic Insurance [facility] [address] Care Teams Rail Car Welder Relationship Specialty Start Date End Date Janes Mason MD [address] [place] [address] PCP - General 03/17/21
--- OUTSIDE RECORDS SUMMARY | 2025-08-06 11:05 | XMS_ITS | Encounter Summary ---
Author Organization [employer] ([place], [place], [place], [place]) Address [address] [place] [address] Care Team Providers Care Booster Operator Name Role Phone Unavailable Primary Care Provider Unavailabl e Encounter Details Date Type Department Care Team (Late st Contact Info) Description 10/17/2020 Transcribed Document [facility] [place] Family Medicine [facility] [place] [address] ProviderDarrell MD [address] [place] [address] Social History Tobacco Use Types Packs/Day Years Used Date Smoking Tobacco: Never Assessed Comments Unknown Sex and Gender Information Value Date Recorded Sex Assigned at Not on file Legal Sex Female 6:16 PM CDT Gender Identity Not on file Sexual Orientation Not on file documented as of this encounter Miscellaneous Notes * Cerner Conversion Note - Historical ProviderMD - 10/17/2020 8:29 PM SAND FILLER Vital Signs ED Entered On: 10/17/2020 20:29 [...] 10/17/2020 20:29 EST Electronically signed by [facility] Conversion Charge Machine Operator Cerner at 02/18/2023 4:53 PM CDT documented in this encounter Plan of Treatment Not on file documented as of this encounter Visit Diagnoses Not on filedocumented in this encounter
--- OUTSIDE RECORDS SUMMARY | 2025-08-06 11:05 | XMS_ITS | Patient Health Record ---
Author Organization [facility] Address [address] [place] [address] Care Team Providers Care Government Gauger Name Role Phone Ilan Caballero [phone] Allergies Allergen (clinical drug ingredient) Drug/Non Drug [...] Risk Notes Problem Cervical spondylosis without myelopathy (380467742) Cervical spondylosis without myelopathy (M47.812) Active confirmed Problem Cervical post-laminectom y syndrome (827762249) Cervical post-laminectomy syndrome (M96.1) Active confirmed Problem Cervical spondylosis without myelopathy (692080368) Cervical spondylosis with radiculopathy (M47.22) Active confirmed Plan Of Treatment No Information Insurance Providers Payer Name Payer Address Payer Phone Subscriber Number Group Number Insured Name Patient Relationship to Insured Coverage Start Date Coverage End Date [employer] [address] [place] [address] [id number] Darshana Barr Self - patient is the insured Medicare [employer] Administ[employer] [address] [address] [place] [phone] [id number] Darshana Barr Self - patient is the insured 0 [employer] [address] [place] [address] [id number] Darshana Barr Self - patient is the insured 0 Medical (General) History Medical History History ICD Code ALLERGIES ARTHRITIS ASTHMA DEPRESSION/ANXIETY EMPHYSEMA/COPD HIGH CHOLESTEROL THYROID DISEASE Surgical History Surgery Date(Month/Year) SCS ABORTED DUE TO SCAR TISSUE 2017 CERVICAL SURGERY C5-7 2017 TOTAL HYSTERECTOMY 2011 GALLBLADDER/APPENDIX 1991 Hospitalization History Reason Date(Month/Year) DOUBLE PNEUMONIA 2018 SEPTIC SHOCK 10/2020
--- OUTSIDE RECORDS SUMMARY | 2025-08-06 11:05 | XMS_ITS | Encounter Summary ---
Author Organization [employer] ([place], [place], [place], [place]) Address [address] [place] [address] Care Team Providers Care Supervisor Tubing Name Role Phone Unavailable Primary Care Provider Unavailabl e Encounter Details Date Type Department Care Team (Late st Contact Info) Description 10/17/2020 Transcribed Document [facility] [place] Family [place] [facility] [place] [address] ProviderDarrell MD [address] [place] [address] Social History Tobacco Use Types Packs/Day Years Used Date Smoking Tobacco: Never Assessed Comments Unknown Sex and Gender Information Value Date Recorded Sex Assigned at Not on file Legal Sex Female 6:16 PM CDT Gender Identity Not on file Sexual Orientation Not on file documented as of this encounter Miscellaneous Notes * Cerner Conversion Note - Historical ProviderMD - 10/17/2020 4:38 PM CULVERT INSTALLER ED Assessment Entered On: 10/17/2020 22:43 EST [...] Communication Barrier : None Primary Language : Uzbek Any Spiritual/Cultural Needs or Requests : No [...] Rhythm : Regular Nail Bed Color : [place] Chest Pain : Yes Neck Vein Distention [...]
--- OUTSIDE RECORDS SUMMARY | 2025-08-06 11:05 | XMS_ITS | Encounter Summary ---
Author Organization [employer] ([place], [place], [place], [place]) Address [address] [place] [address] Care Team Providers Care Sports Umpire Name Role Phone Unavailable Primary Care Provider Unavailabl e Encounter Details Date Type Department Care Team (Late st Contact Info) Description 10/17/2020 Transcribed Document [facility] [place] [facility] [place] [address] ProviderDarrell MD [address] [place] [address] Social History Tobacco Use Types Packs/Day Years Used Date Smoking Tobacco: Never Assessed Comments Unknown Sex and Gender Information Value Date Recorded Sex Assigned at Not on file Legal Sex Female 6:16 PM CDT Gender Identity Not on file Sexual Orientation Not on file documented as of this encounter Miscellaneous Notes * Cerner Conversion Note - Historical ProviderMD - 10/17/2020 4:[address] SCAN TECHNOLOGIST [place] Suicide Severity Rating Scale (C-SSRS) Entered On: 10/17/2020 22:43 EST Performed On: 10/17/2020 22:40 EST by Jeannette Fuller RN [place] Suicide Severity Rating Scale (C-SSRS) CSSRS Past [...]
--- OUTSIDE RECORDS SUMMARY | 2025-08-06 11:05 | XMS_ITS | Encounter Summary ---
Author Organization [employer] ([place], [place], [place], [place]) Address [address] [place] [address] Care Team Providers Care Nursing Consultant Name Role Phone Unavailable Primary Care Provider Unavailabl e Encounter Details Date Type Department Care Team (Late st Contact Info) Description 10/04/2020 Transcribed Document [facility] [place] [address] ProviderDarrell MD [address] [place] [address] Social History Tobacco Use Types Packs/Day Years Used Date Smoking Tobacco: Never Assessed Comments Unknown Sex and Gender Information Value Date Recorded Sex Assigned at Not on file Legal Sex Female 6:16 PM CDT Gender Identity Not on file Sexual Orientation Not on file documented as of this encounter Miscellaneous Notes * Cerner Conversion Note - Historical ProviderMD - 10/04/2020 4:06 PM HOUSE NURSE DATE OF ADMISSION: 10/04/2020 HISTORY OF PRESENT [...] is also using Cymbalta and taking her [place] 3 times daily. She says that she is also using Robaxin as needed and taking her Lyrica 3 times daily. The patient says that she really needs to have the [place] dosage 4 times daily. She says that [...] not to take the Lyrica and the [place] at the same time but alternate those. [...] visit and the patient has been afebrile. /[id number] FLOYD Mullins/MIRIAN / PITA / MODL CC: REYES (REF) MD AUDIE documented in this encounter Plan of Treatment Not on file documented as of this encounter Visit Diagnoses Not on filedocumented in this encounter
--- OUTSIDE RECORDS SUMMARY | 2025-08-06 11:05 | XMS_ITS | Encounter Summary ---
Author Organization [employer] ([place], [place]) Address [address] [place] [address] Care Team Providers Care Environmental Engineer Name Role Phone Unavailable Primary Care Provider Unavailabl e Encounter Details Date Type Department Care Team (Late st Contact Info) Description 10/17/2020 Transcribed Document [facility] [place] [facility] [place] [address] ProviderDarrell MD [address] [place], [place] [address] Social History Tobacco Use Types Packs/Day Years Used Date Smoking Tobacco: Never Assessed Comments Unknown Sex and Gender Information Value Date Recorded Sex Assigned at Not on file Legal Sex Female 6:16 PM CDT Gender Identity Not on file Sexual Orientation Not on file documented as of this encounter Miscellaneous Notes * Cerner Conversion Note - Historical ProviderMD - 10/17/2020 8:38 PM NEEDLE VALVE OPERATOR ED Event Note Entered On: 10/17/2020 20:40 EST Performed On: 10/17/2020 20:38 EST by Jeannette Fuller COIL WINDING SUPERVISOR Event Note ED Event Date/Time : 10/17/2020 [...] RAJeannette Tan, RN - 10/17/2020 20:38 EST Electronically signed by Paul Grubbs Conversion Endless Track Vehicle Supervisor Cerner at 02/18/2023 4:51 PM CDT documented in this encounter Plan of Treatment Not on file documented as of this encounter Visit Diagnoses Not on filedocumented in this encounter
--- OUTSIDE RECORDS SUMMARY | 2025-08-06 11:05 | XMS_ITS | Encounter Summary ---
Author Organization [employer] ([place], [place], [place], [place]) Address [address] [place] [address] Care Team Providers Care Tack Cutter Name Role Phone Unavailable Primary Care Provider Unavailabl e Encounter Details Date Type Department Care Team (Late st Contact Info) Description 06/27/2020 Transcribed Document [facility] [place] [facility] [place] [address] ProviderDarrell MD [address] [place] [address] Social History Tobacco Use Types Packs/Day Years [...] possible. The patient is also taking her [place] 3 times daily as needed and her [...] dose. She has voiced understanding. 3. Continue [place] 7.5/325 mg 3 times daily as needed. [...] visit and the patient has been afebrile. /[id number] DICTATED BY: Jazz Orta APRN for Pepe Krishna MD, BLAKE Pain Certified Pepe Krishna MD, BLAKE Pain Certified PITA/AQ / PITA / MODL CC: REYES (REF) MD AUDIE documented in this encounter Plan of Treatment Not on file documented as of this encounter Visit Diagnoses Not on filedocumented in this encounter
--- OUTSIDE RECORDS SUMMARY | 2025-08-06 11:05 | XMS_ITS | Encounter Summary ---
Author Organization [employer] ([place], [place], [place], [place]) Address [address] [place] [address] Care Team Providers Care Remote Sensing Technologist Name Role Phone Unavailable Primary Care Provider Unavailabl e Encounter Details Date Type Department Care Team (Late st Contact Info) Description 10/17/2020 Transcribed Document [facility] [place] [address] ProviderDarrell MD [address] [place], [place] [address] Social History Tobacco Use Types Packs/Day Years Used Date Smoking Tobacco: Never Assessed Comments Unknown Sex and Gender Information Value Date Recorded Sex Assigned at Not on file Legal Sex Female 6:16 PM CDT Gender Identity Not on file Sexual Orientation Not on file documented as of this encounter Miscellaneous Notes * Cerner Conversion Note - Historical ProviderMD - 10/17/2020 8:40 PM SENIOUR INSIGHT MANAGER ED Event Note Entered On: 10/17/2020 [...]
--- OUTSIDE RECORDS SUMMARY | 2025-08-06 11:05 | XMS_ITS | Clinical Summary ---
Author Organization [facility] Address [address] [id number] Care Team Providers Care Body Shop Mechanic Name Role Phone Janes Mason MD Primary Care Provider [phone] Allergies Active Allergy Reactions Criticality Noted Date Comments Acetaminophen GI Intolerance 12/01/2015 Acetaminophen-Codeine Unknown - Low Severity Codeine GI Intolerance 10/13/2021 Penicillins Other (See Comments) ,Unknown - Low Severity 11/13/2012 Medications pregabalin (Lyrica) 100 MG capsule Every 8 (Eight) Hours. Active HYDROcodone-acet aminophen (Reno) 5-325 MG per tablet Reno 5 mg-325 mg tablet Take 1 tablet [...] ANNUAL PHYSICAL 10/05/2021 HEPATITIS C SCREENING 10/05/2021 INFLUENZA VACCINE 06/04/2025 Pneumococcal Vaccine 50+ (3 of 3 - PCV20 or PCV21) 10/10/2026 10/10/2021, 10/24/2018 Insurance O MEDICARE A & B Member Subscriber Plan / Payer (Ef fective 2019-Present) Name:Darshana Barr Member ID:[id number] Relation to Subscriber:Self Name:Darshana Barr Subscriber ID:[id number] Payer ID:[id number] Group ID:Not on file Type:Not on file Address: [address] Care Teams Body Shop Mechanic Relationship Specialty Start Date End Date Janes Mason MD [address] [place] [address] PCP - General Family Medicine 07/11/21
--- OUTSIDE RECORDS SUMMARY | 2025-08-06 11:05 | XMS_ITS | Encounter Summary ---
Author Organization [employer] ([place], [place], [place], [place]) Address [address] [place] [address] Care Team Providers Care Insulation Extruder Operator Name Role Phone Unavailable Primary Care Provider Unavailabl e Encounter Details Date Type Department Care Team (Late st Contact Info) Description 03/14/2020 Transcribed Document [facility] [place] [address] ProviderDarrell MD [address] [place] [address] Social History Tobacco Use Types Packs/Day Years [...] also trying to wean herself off her [place] by doing one-half tablet at a time. [...] it. 2. We are going to continue [place] 7.5/325 mg three times daily as needed. [...] medications for this patient's treatment plan today. /[id number] Jazz FLOYD Church/MIRIAN / PITA / MODL CC: FLOYD Lazo MD Electronically signed by [facility], [facility] Conversion Radio Frequency Technician Cerner at 02/18/2023 5:02 PM CDT documented in this encounter Plan of Treatment Not on file documented as of this encounter Visit Diagnoses Not on filedocumented in this encounter
--- OUTSIDE RECORDS SUMMARY | 2025-08-06 11:05 | XMS_ITS | Encounter Summary ---
Author Organization [employer] ([place], [place], [place], [place]) Address [address] [place] [address] Care Team Providers Care Transformer Mechanic Name Role Phone Unavailable Primary Care Provider Unavailabl e Encounter Details Date Type Department Care Team (Late st Contact Info) Description 05/10/2020 Transcribed Document [facility] [place] [facility] [place] [address] ProviderDarrell MD [address] [place] [address] Social History Tobacco Use Types Packs/Day Years [...] sedation, driving problem, or GI problem. Her medart operator recently placed her on Cymbalta 30 mg [...] and walking. 8. I agree with her medart operator to continue with Cymbalta 30 mg at [...] visit and the patient has been afebrile. /[id number] Pepe Krishna MD, BLAKE Pain Certified KR/AQ / EN / MODL CC: Janes Mason MD Electronically signed by [facility], [facility] Conversion Puller Over Cerner at 02/18/2023 5:04 PM CDT documented in this encounter Plan of Treatment Not on file documented as of this encounter Visit Diagnoses Not on filedocumented in this encounter
--- OUTSIDE RECORDS SUMMARY | 2025-08-06 11:05 | XMS_ITS | Encounter Summary ---
Author Organization [employer] ([place], [place], [place], [place]) Address [address] [place] [address] Care Team Providers Care Owner E Commerce Company Name Role Phone Unavailable Primary Care Provider Unavailabl e Encounter Details Date Type Department Care Team (Late st Contact Info) Description 09/02/2020 Transcribed Document [facility] [place] Family [place] [address] [place] [address] ProviderDarrell MD [address] [place] [address] Social History Tobacco Use Types Packs/Day Years [...] help with the pain. She is taking [place] 3 times daily as needed and Lyrica [...] with alcohol, or self-escalate it. 2. Continue [place] 7.5/325 mg 3 times daily as needed. [...] visit and the patient has been afebrile. /[id number] FLOYD Mullins/MIRIAN / PITA / MODL CC: Janes Mason MD documented in this encounter Plan of Treatment Not on file documented as of this encounter Visit Diagnoses Not on filedocumented in this encounter
--- OUTSIDE RECORDS SUMMARY | 2025-08-06 11:06 | XMS_ITS | Clinical Summary ---
Author Organization [employer] ([place], [place], [place], [place]) Address [address] [place] [address] Care Team Providers Care Co Director Name Role Phone Unavailable Primary Care [...] HYDROcodone-elaine taminophen (NORCO) 5-325 mg per tablet [place] 5 mg-325 mg tablet Take 1 tablet [...] AWV [id number] 11/05/2020 COVID-19 VACCINE ( season) 2025 09/14/2021, 02/24/2021, 01/10/2021 Influenza Vaccine (#1) 2025 Tobacco Cessation Counseling and Screening (12+) 10/08/2025 10/08/2024 Pneumococcal 50+ years (3 of 3 - PCV20 or PCV21) 10/10/2026 10/10/2021, 10/24/2018 Insurance MEDICARE PART [place] [address] [address] CROSS/BLUE SHIELD Member Subscriber Plan / Payer (Ef fective 2023-Present) Name:Darshana Barr Relation to Subscriber:Self Name:Darshana Barr Payer ID:Not on file Group ID:[id number] Type:Not on file Address: [facility] [id number] [place] [id number]
--- OUTSIDE RECORDS SUMMARY | 2025-08-06 11:06 | XMS_ITS | Encounter Summary ---
Author Organization [employer] ([place], [place], [place], [place]) Address [address] [place] [address] Care Team Providers Care Senior Medical Billing Specialist Name Role Phone Unavailable Primary Care Provider Unavailabl e Encounter Details Date Type Department Care Team (Late st Contact Info) Description 10/17/2020 Transcribed Document [facility] [place] [address] ProviderDarrell MD [address] [place] [address] [id number] Social History Tobacco Use Types Packs/Day Years Used Date Smoking Tobacco: Never Assessed Comments Unknown Sex and Gender Information Value Date Recorded Sex Assigned at Not on file Legal Sex Female 6:16 PM CDT Gender Identity Not on file Sexual Orientation Not on file documented as of this encounter Miscellaneous Notes * Cerner Conversion Note - Historical ProviderMD - 10/17/2020 4:38 PM SNUFF DRIER ED Triage Entered On: 10/17/2020 17:34 EST Performed On: 10/17/2020 17:31 EST by Calli Cruz RN ED Triage Across the Room Chief Complaint : Hospitalized at [place] last week c sepsis/PNA. Saw Gillian Alicia @ Dr. Cheek's office 10/13, had elevated WBCs. Temp today 98.6 - states baseline is 97.1 and she was advised to come to ED. Triage Date/Time : 10/17/2020 17:31 EST Calli Cruz RN - 10/17/2020 17:31 EST DCP GENERIC CODE Tracking Acuity : 3 - Urgent Tracking Group : [facility] ED Calli Cruz RN - 10/17/2020 [...] 10/17/2020 17:34:28 EST) Problems(Active) Anxiety (SNOMED CT :8840155771 ) Name of Problem: Anxiety ; Recorder: Tracey Mathews RN; Confirmation: Confirmed ; Classification: Medical ; Code: [id number] ; Contributor System: Avalon Clones ; Last Updated: 11/06/2016 11:42 EST ; Life Cycle Date: 11/06/2016 ; Life Cycle Status: Active ; Vocabulary: SNOMED CT Arthritis (SNOMED CT :9297047 ) Name of Problem: Arthritis ; Recorder: JOSÉ MIGUEL BRADSHAW RN; Confirmation: Confirmed ; Classification: Medical ; Code: 3163119 ; Contributor System: REES46Chart ; Last Updated: 09/23/2018 15:39 EST ; Life Cycle Date: 06/18/2018 ; Life Cycle Status: Active ; Vocabulary: SNOMED CT Asthma (SNOMED CT :907158303 ) Name of Problem: Asthma ; Recorder: Tracey Mathews RN; Confirmation: Confirmed ; Classification: Medical ; Code: 187405254 ; Contributor System: PowerChart ; Last Updated: 11/06/2016 11:28 EST ; Life Cycle Date: 11/06/2016 ; Life Cycle Status: Active ; Vocabulary: SNOMED CT Asthma (SNOMED CT :413975133 ) Name of Problem: Asthma ; Recorder: JOSÉ MIGUEL BRADSHAW RN; Confirmation: Confirmed ; Classification: Medical ; Code: 424762161 ; Contributor System: PowerChart ; Last Updated: 06/18/2018 15:03 EDT ; Life Cycle Date: 06/18/2018 ; Life Cycle Status: Active ; Vocabulary: SNOMED CT Cardiomyopathy (SNOMED CT :111273955 ) Name of Problem: Cardiomyopathy ; Recorder: Malgorzata Pemberton RN; Confirmation: Confirmed ; Classification: Medical ; Code: 836889577 ; Contributor System: REES46Chart ; Last Updated: 11/07/2016 6:38 EST ; Life Cycle Date: 11/07/2016 ; Life Cycle Status: Active ; Vocabulary: SNOMED CT DDD (degenerative disc disease), cervical (SNOMED CT :350621653 ) Name of Problem: DDD (degenerative disc disease), cervical ; Recorder: Tracey Mathews RN; Confirmation: Confirmed ; Classification: Medical ; Code: 456456206 ; Contributor System: PowerChart ; Last Updated: 11/06/2016 11:41 EST ; Life Cycle Date: 11/06/2016 ; Life Cycle Status: Active ; Vocabulary: SNOMED CT Endometriosis (SNOMED CT :1414799060 ) Name of Problem: Endometriosis ; Recorder: Tracey Mathews RN; Confirmation: Confirmed ; Classification: Medical ; Code: 4340876326 ; Contributor System: PowerChart ; Last Updated: 11/06/2016 11:30 EST ; Life Cycle Date: 11/06/2016 ; Life Cycle Status: Active ; Vocabulary: SNOMED CT Fibroids (SNOMED CT :521027791 ) Name of Problem: Fibroids ; Recorder: Tracey Mathews RN; Confirmation: Confirmed ; Classification: Medical ; Code: 138773119 ; Contributor System: PowerChart ; Last Updated: 11/06/2016 11:30 EST ; Life Cycle Date: 11/06/2016 ; Life Cycle Status: Active ; Vocabulary: SNOMED CT GERD - Gastro-esophageal reflux disease (SNOMED CT :8165193326 ) Name of Problem: GERD - Gastro-esophageal reflux disease ; Recorder: Tracey Mathews RN; Confirmation: Confirmed ; Classification: Medical ; Code: 4654977515 ; Contributor System: PowerChart ; Last Updated: 11/06/2016 11:29 EST ; Life Cycle Date: 11/06/2016 ; Life Cycle Status: Active ; Vocabulary: SNOMED CT H/O: depression (SNOMED CT :216781402 ) Name of Problem: H/O: depression ; Recorder: JOSÉ MIGUEL BRADSHAW RN; Confirmation: Confirmed ; Classification: Medical ; Code: 897920449 ; Contributor System: PowerChart ; Last Updated: 06/18/2018 15:07 EDT ; Life Cycle Date: 06/18/2018 ; Life Cycle Status: Active ; Vocabulary: SNOMED CT History of obstructive sleep apnea (IMO :66376315 ) Name of Problem: History of obstructive sleep apnea ; Recorder: SYSTEM, SYSTEM; Confirmation: Confirmed ; Classification: Medical ; Code: 47658266 ; Last Updated: 06/18/2018 15:16 EDT ; Life Cycle Date: 06/18/2018 ; Life Cycle Status: Active ; Vocabulary: IMO Left carpal tunnel syndrome (SNOMED CT :2864434607 ) Name of Problem: Left carpal tunnel syndrome ; Recorder: Tracey Mathews RN; Confirmation: Confirmed ; Classification: Medical ; Code: 1080687309 ; Contributor System: PowerChart ; Last Updated: 11/06/2016 11:43 EST ; Life Cycle Date: 11/06/2016 ; Life Cycle Status: Active ; Vocabulary: SNOMED CT Migraine (SNOMED CT :31078138 ) Name of Problem: Migraine ; Recorder: Tracey Mathews RN; Confirmation: Confirmed ; Classification: Medical ; Code: 13809255 ; Contributor System: PowerChart ; Last Updated: 11/06/2016 11:30 EST ; Life Cycle Date: 11/06/2016 ; Life Cycle Status: Active ; Vocabulary: SNOMED CT Neck pain (SNOMED CT :4124882680 ) Name of Problem: Neck pain ; Recorder: Tracey Mathews RN; Confirmation: Confirmed ; Classification: Medical ; Code: 3787211234 ; Contributor System: PowerChart ; Last Updated: 11/06/2016 11:41 EST ; Life Cycle Date: 11/06/2016 ; Life Cycle Status: Active ; Vocabulary: SNOMED CT PCO - Polycystic ovaries (SNOMED CT :625117003 ) Name of Problem: PCO - Polycystic ovaries ; Recorder: Tracey Mathews RN; Confirmation: Confirmed ; Classification: Medical ; Code: 317296310 ; Contributor System: PowerChart ; Last Updated: 11/06/2016 11:30 EST ; Life Cycle Date: 11/06/2016 ; Life Cycle Status: Active ; Vocabulary: SNOMED CT Pneumonia (SNOMED CT :619908257 ) Name of Problem: Pneumonia ; Recorder: Tracey Mathews RN; Confirmation: Confirmed ; Classification: Medical ; Code: 101708510 ; Contributor System: PowerChart ; Last Updated: 11/06/2016 11:28 EST ; Life Cycle Date: 11/06/2016 ; Life Cycle Status: Active ; Vocabulary: SNOMED CT Sleep apnea (SNOMED CT :231959564 ) Name of Problem: Sleep apnea ; Recorder: JOSÉ MIGUEL BRADSHAW RN; Confirmation: Confirmed ; Classification: Medical ; Code: 402231870 ; Contributor System: PowerChart ; Last Updated: 06/18/2018 15:03 EDT ; Life Cycle Date: 06/18/2018 ; Life Cycle Status: Active ; Vocabulary: SNOMED CT Spinal stenosis of cervical region (SNOMED CT :027370745 ) Name of Problem: Spinal stenosis of cervical region ; Recorder: Tracey Mathews RN; Confirmation: Confirmed ; Classification: Medical ; Code: 879876083 ; Contributor System: PowerChart ; Last Updated: 11/06/2016 11:43 EST ; Life Cycle Date: 11/06/2016 ; Life Cycle Status: Active ; Vocabulary: SNOMED CT Wears glasses (SNOMED CT :831150653 ) Name of Problem: Wears glasses ; Recorder: JOSÉ MIGUEL BRADSHAW RN; Confirmation: Confirmed ; Classification: Medical ; Code: 118637602 ; Contributor System: Avalon Clones ; Last Updated: 06/18/2018 15:01 EDT ; Life Cycle Date: 06/18/2018 ; Life Cycle Status: Active ; Vocabulary: SNOMED CT Diagnoses(Active) Abnormal laboratory findings Date: 10/17/2020 ; Diagnosis Type: Reason For Visit ; Confirmation: Complaint of ; Clinical Dx: Abnormal laboratory findings ; Classification: Medical ; Clinical Service: Non-Specified ; Code: PNED ; Probability: 0 ; Diagnosis Code: [id number] Shortness of breath Date: 10/17/2020 ; Diagnosis Type: Reason For Visit ; Confirmation: Complaint of ; Clinical Dx: Shortness of breath ; Classification: Medical ; Clinical Service: Non-Specified ; Code: PNED ; Probability: 0 ; Diagnosis Code: [id number] ED Height and Weight Height Source : Stated Height Entry Format : [place] Height, Feet : 5 ft(Converted to: 152 cm, 60 Inch) Height, Inches : 4 Inch(Converted to: 0 ft 4 Inch, 10.16 cm) Clinical Height : 162.56 cm Weight Source, ED : Critical estimated dosing weight Weight Entry Format : [place] Weight, Pounds : 250 lb Clinical Dosing Weight : 113.64 kg Body Surface Area (BSA) : 2.15 m2 Body Mass Index : 43 kg/m2 (>HHI) [place] Body Weight (IBW) : 54.3 kg Calli Cruz RN - 10/17/2020 17:31 EST documented in this encounter Plan of Treatment Not on file documented as of this encounter Visit Diagnoses Not on filedocumented in this encounter
--- OUTSIDE RECORDS SUMMARY | 2025-08-06 11:06 | XMS_ITS | Encounter Summary ---
Author Organization [employer] ([place], [place], [place], [place]) Address [address] [place] [address] Care Team Providers Care Furnace Installer Name Role Phone Unavailable Primary Care Provider Unavailabl e Encounter Details Date Type Department Care Team (Late st Contact Info) Description 11/24/2020 Transcribed Document [facility] [place] [facility] [place] [address] ProviderDarrell MD [address] [place] [id number] Social History Tobacco Use Types Packs/Day Years Used Date Smoking Tobacco: Never Assessed Comments Unknown Sex and Gender Information Value Date Recorded Sex Assigned at Not on file Legal Sex Female 6:16 PM CDT Gender Identity Not on file Sexual Orientation Not on file documented as of this encounter Miscellaneous Notes * Cerner Conversion Note - Historical ProviderMD - 11/24/2020 3:48 PM POSTAL SUPERINTENDENT DATE OF ADMISSION: 11/24/2020 HISTORY OF PRESENT [...] visit and the patient has been afebrile. /[id number] Pepe Krishna MD, BLAKE Pain Certified KR/AQ / KR / MODL CC: REYES BRONSON MD Electronically signed by [employer], [facility] Conversion Adjunct Latin Professor Cerner at 02/18/2023 4:50 PM CDT documented in this encounter Plan of Treatment Not on file documented as of this encounter Visit Diagnoses Not on filedocumented in this encounter
--- OUTSIDE RECORDS SUMMARY | 2025-08-06 11:06 | XMS_ITS | Encounter Summary ---
Author Organization [email or web address] ([place], [place], [place], [place]) Address [address] [place] [address] Care Team Providers Care Rail Car Repair Carman Name Role Phone Unavailable Primary Care Provider Unavailabl e Encounter Details Date Type Department Care Team (Late st Contact Info) Description 01/06/2021 Transcribed Document [facility] [place] [facility] [place] [address] ProviderDarrell MD [address] [place] [address] Social History Tobacco Use Types Packs/Day Years Used Date Smoking Tobacco: Never Assessed Comments Unknown Sex and Gender Information Value Date Recorded Sex Assigned at Not on file Legal Sex Female 6:16 PM CDT Gender Identity Not on file Sexual Orientation Not on file documented as of this encounter Miscellaneous Notes * Cerner Conversion Note - Historical ProviderMD - 01/06/2021 1:08 PM BOTTLE PACKING MACHINE CLEANER [facility] [address] FERMIN BARR :1965 Visit Time:01/06/2021 [...] OLSON When Only if needed Where: [address] [facility] [address] [place] [address]- [facility] (1) Medications What How Much When [...] times a day. General instructions ??? Take eczd-kad-qhzufrw and prescription medicines only as told by [...] 07/30/2009 Document Revised: 10/29/2019 Document Reviewed: 03/12/2019 [employer] Patient Education ?? 2020 op5. Instructions for after EGD with Dilation 1. [...] activities are safe for you. ??? Take vflf-onf-hctbsbe and prescription medicines only as told by [...] Reviewed: 06/06/2018 Elsevier Patient Education ?? 2020 [employer] Emergency Awareness and Preventative Care STROKE [...] Assistance with quitting is available by contacting 0-564-SLZI-NOW. This is a free resource providing counseling, [...] was given the opportunity to ask questions. Patient/Operations Associate Name: Patient/Operations Associate Signature: Relationship to Patient: Clinician/Hospital Operations Associate Signature: Date: Electronically signed by Interface, [facility] Conversion Color Drum Worker Robby at 02/18/2023 5:06 PM CDT documented in this encounter Plan of Treatment Not on file documented as of this encounter Visit Diagnoses Not on filedocumented in this encounter
--- OUTSIDE RECORDS SUMMARY | 2025-08-06 11:06 | XMS_ITS | Encounter Summary ---
Author Organization [employer] ([place], [place], [place], [place]) Address [address] [place] [address] Care Team Providers Care Licensed Dispensing Optician Name Role Phone Unavailable Primary Care Provider Unavailabl e Encounter Details Date Type Department Care Team (Late st Contact Info) Description 01/06/2021 Transcribed Document [facility] [place] [facility] [place] [address] ProviderDarrell MD [address] [place] [id number] Social History Tobacco Use Types Packs/Day Years Used Date Smoking Tobacco: Never Assessed Comments Unknown Sex and Gender Information Value Date Recorded Sex Assigned at Not on file Legal Sex Female 6:16 PM CDT Gender Identity Not on file Sexual Orientation Not on file documented as of this encounter Miscellaneous Notes * Cerner Conversion Note - Historical ProviderMD - 01/06/2021 12:30 PM NEUROLOGICAL PHYSIOTHERAPIST [facility] [employer] PreOp Summary Primary Physician: SEA OLSON MD Finalized Date/Time: 01/06/21 12:22:57 Pt. Name: FERMIN DEVRIES/Sex: 1965 Female Med Rec #: [id number] Physician: SEA OLSON MD Financial #: [id number] Pt. Type: O Room/Bed: END/ Admit/Disch: 01/06/21 11:16:00 - Institution: [facility] PreOp Case Times Entry 1 In Preop 01/06/21 12:05:00 Ready for Holding n/a Room Patient Ready for n/a Surgery Patient Out of Preop 01/06/21 12:22:00 Patient Out of n/a Holding Room Last Modified By: Ligia Walter RN 01/06/21 12:22:55 Finalized By: Ligia Walter, RN Document Signatures Signed By: Ligia Walter RN 01/06/21 12:22 Electronically signed by Paul Grubbs Conversion Mineral Ore Processing Labourer Cerner at 02/18/2023 4:51 PM CDT documented in this encounter Plan of Treatment Not on file documented as of this encounter Visit Diagnoses Not on filedocumented in this encounter
--- OUTSIDE RECORDS SUMMARY | 2025-08-06 11:06 | XMS_ITS | Encounter Summary ---
Author Organization [employer] ([place], [place], [place], [place]) Address [address] [place] [address] Care Team Providers Care Lion Tamer Name Role Phone Unavailable Primary Care Provider Unavailabl e Encounter Details Date Type Department Care Team (Late st Contact Info) Description 02/09/2019 Transcribed Document [facility] [place] [facility] [place] [address] ProviderDarrell MD [address] [place] [id number] Social History Tobacco Use Types Packs/Day Years [...] patient states that she did see her business solutions analyst and has some of her COPD medications [...] filled. The patient does continue to take [place] 7.5/325 mg 2-3 times a day as [...] 5. Long-term opioid use. PLAN: 1. Refill [place] 7.5/325 mg 2-3 times a day as [...] Dr. Janes Mason Electronically signed by [employer] [facility] Conversion Data Center Operator Cerner at 02/18/2023 4:54 PM CDT documented in this encounter Plan of Treatment Not on file documented as of this encounter Visit Diagnoses Not on filedocumented in this encounter
--- OUTSIDE RECORDS SUMMARY | 2025-08-06 11:06 | XMS_ITS | Encounter Summary ---
Author Organization [employer] ([place], [place], [place], [place]) Address [address] [place] [address] Care Team Providers Care Business And Marketing Teacher Name Role Phone Unavailable Primary Care Provider Unavailabl e Encounter Details Date Type Department Care Team (Late st Contact Info) Description 10/17/2020 Transcribed Document [facility] [place] [facility] [place] [address] ProviderDarrell MD [address] [place] [id number] Social History Tobacco Use Types Packs/Day Years Used Date Smoking Tobacco: Never Assessed Comments Unknown Sex and Gender Information Value Date Recorded Sex Assigned at Not on file Legal Sex Female 6:16 PM CDT Gender Identity Not on file Sexual Orientation Not on file documented as of this encounter Miscellaneous Notes * Cerner Conversion Note - Historical ProviderMD - 10/17/2020 10:52 PM PRESS HELPER Patient: FERMIN BARR Age: 55 years Sex: Female : 1965 Associated Diagnoses: Elevated WBCs; PNA (pneumonia) Author: HAYLEE YOUNGBLOOD PA-C Basic Information Additional information: Chief Complaint from Nursing Triage Note : Chief Complaint 10/17/2020 17:31 EST Chief Complaint Hospitalized at [place] last week c sepsis/PNA. Saw Maximiliano Alicia [...] Patient says that after being discharged from [facility] last week due to sepsis and possible [...] to see if she could come to [place] to have her blood work done in [...] 30 Tab, 2 Refill(s) Documented Medications Documented [place] 7.5 mg-325 mg oral tablet: 1 Tab, [...] EST Height Source Stated Height Entry Format [place] Height/Length, SYRIAN (ft) 5 ft Height/Length SYRIAN 4 Inch CLINICALHEIGHT 162.56 cm [place] Body Weight 54.3 kg Weight Source, ED Critical estimated dosing weight Weight Entry Format [place] Weight [place] Citizen lb 250 lb CLINICALWEIGHT 113.64 kg Body [...] Triage: ED C-SSRS: ED Clinical Reconciliation: ED general maintenance technician: EKG: Lactic Acid Level with Reflex if [...] 11.7 % LOW Lymph # 2.28 x10(3)/uL Maries % 4.3 % Maries # 0.83 K/uL Eos % 0.1 % [...]
--- OUTSIDE RECORDS SUMMARY | 2025-08-06 11:06 | XMS_ITS | Encounter Summary ---
Author Organization [employer] ([place], [place], [place], [place]) Address [address] [place] [address] Care Team Providers Care Build Manager Name Role Phone Unavailable Primary Care Provider Unavailabl e Encounter Details Date Type Department Care Team (Late st Contact Info) Description 03/17/2019 Transcribed Document [facility] [place] [facility] [place] [address] ProviderDarrell MD [address] [place] [address] Social History Tobacco Use Types Packs/Day Years [...]
--- OUTSIDE RECORDS SUMMARY | 2025-08-06 11:06 | XMS_ITS | Encounter Summary ---
Author Organization [employer] ([place], [place], [place], [place]) Address [address] [place] [address] Care Team Providers Care Seo Marketing Specialist Name Role Phone Unavailable Primary Care Provider Unavailabl e Encounter Details Date Type Department Care Team (Late st Contact Info) Description 12/15/2019 Transcribed Document [facility] [place] [facility] [place] [address] ProviderDarrell MD [address] [place] [phone] Social History Tobacco Use Types Packs/Day Years Used Date Smoking Tobacco: Never Assessed Comments Unknown Sex and Gender Information Value Date Recorded Sex Assigned at Not on file Legal Sex Female 6:16 PM CDT Gender Identity Not on file Sexual Orientation Not on file documented as of this encounter Miscellaneous Notes * Cerner Conversion Note - Historical ProviderMD - 12/15/2019 1:46 PM ASTRO TECHNICIAN DATE OF ADMISSION: 12/15/2019 HISTORY OF PRESENT [...] Lyrica 100 mg three times daily, and [place] 7.5/325 mg three times daily as needed. [...] 100 mg three times daily. 4. Continue [place] 7.5/325 mg three times daily as needed. [...] patient to attend her workup with the sorting machine operator. 9. We are going to see the patient back in 1 month to re-evaluate. 10. The assessment and plan for today's visit have been reviewed by Dr. Krishna, however, I have prescribed the medications for this patient's treatment plan today. /[id number] Jazz Orta APRN PITA/AQ / PITA / MODL CC: MD Nneka Alcantar APRN Electronically signed by [employer] [facility] Conversion District Manager Primary Care Sales Kyliener at 02/18/2023 5:04 PM CDT documented in this encounter Plan of Treatment Not on file documented as of this encounter Visit Diagnoses Not on filedocumented in this encounter
--- OUTSIDE RECORDS SUMMARY | 2025-08-06 11:06 | XMS_ITS | Clinical Summary ---
Author Organization [facility] Address [address] [place] [address] Phone Care Team Providers Care Notched Blade Loader Name Role Phone Janes Mason Primary Care Provider [phone] Allergies Active Allergy Reactions Criticality Noted Date [...] COVID-19 Vaccine (1 - 2023-2 5 season) 2025 Influenza Vaccine (#1) 2025 Meningococcal B Vaccine Aged Out No l onger eligible based on patient's age to complete this topic [facility] Care Teams Notched Blade Loader Relationship Specialty Start Date End Date Janes Mason [address] [place] [phone] PCP - General Family Medicine 04/09/17
--- OUTSIDE RECORDS SUMMARY | 2025-08-06 11:06 | XMS_ITS | Encounter Summary ---
Author Organization [employer] ([place], [place], [place]) Address [address] [place] [address] Care Team Providers Care Superintendent Container Terminal Name Role Phone Unavailable Primary Care Provider Unavailabl e Encounter Details Date Type Department Care Team (Late st Contact Info) Description 10/30/2018 Transcribed Document [facility] [place] Family [place] [facility] [place] [address] ProviderDarrell MD [address] [place] [phone] Social History Tobacco Use Types Packs/Day Years Used Date Smoking Tobacco: Never Assessed Comments Unknown Sex and Gender Information Value Date Recorded Sex Assigned at Not on file Legal Sex Female 6:16 PM CDT Gender Identity Not on file Sexual Orientation Not on file documented as of this encounter Miscellaneous Notes * Cerner Conversion Note - Historical MD Mark - 10/30/2018 1:58 PM NUT GRADER DATE OF ADMISSION: 10/30/2018 HISTORY OF PRESENT [...] patient recently followed back up with her grounds keeper and states that she was diagnosed with COPD stage 2. She states that they are starting on Symbicort and Spiriva to try to help her with it. The patient states that also they did tell her that she does have a small lung nodule in her lower lobe and that will heal itself. The patient does continue to take Nitro 7.5/325 mg 2-3 times a day as [...] radiculopathy. 4. Cervical spondylosis. PLAN: 1. Refill Nitro 7.5/325 mg 2-3 times a day as [...] Dr. Janes Mason Electronically signed by [employer] [facility] Conversion Board Certified Arts Therapist Cerner at 02/18/2023 4:46 PM CDT documented in this encounter Plan of Treatment Not on file documented as of this encounter Visit Diagnoses Not on filedocumented in this encounter
--- OUTSIDE RECORDS SUMMARY | 2025-08-06 11:06 | XMS_ITS | Encounter Summary ---
Author Organization Healthcare Address [address] [place] [address] Care Team Providers Care Lead Mechanic Name Role Phone Janes Mason MD Primary Care Provider [phone] Encounter Details Date Type Department Care Team (Late st Contact Info) Description 02/28/2023 [facility] [address] [place] [address] Bud Shea MD [address] [facility], [address] [address] Other headache syndrome (Primary Dx) Social History [...] Primary documented in this encounter Care Teams Lead Mechanic Relationship Specialty Start Date End Date Janes Mason MD [address] [place] [address] PCP - General 03/17/21 documented as of this encounter
--- OUTSIDE RECORDS SUMMARY | 2025-08-06 11:06 | XMS_ITS | Encounter Summary ---
Author Organization [employer] ([place], [place], [place], [place]) Address [address] [place] [address] Care Team Providers Care Screw Eye Assembler Name Role Phone Unavailable Primary Care Provider Unavailabl e Encounter Details Date Type Department Care Team (Late st Contact Info) Description 09/17/2019 Transcribed Document [facility] [place] Family Medicine [facility] [place] [address] ProviderDarrell MD [address] [place] [address] [phone] Social History Tobacco Use Types Packs/Day Years Used Date Smoking Tobacco: Never Assessed Comments Unknown Sex and Gender Information Value Date Recorded Sex Assigned at Not on file Legal Sex Female 6:16 PM CDT Gender Identity Not on file Sexual Orientation Not on file documented as of this encounter Miscellaneous Notes * Cerner Conversion Note - Historical ProviderMD - 09/17/2019 1:43 PM RELIGION INSTRUCTOR DATE OF ADMISSION: 09/17/2019 HISTORY: This is [...] 1 to 2 weeks to re-evaluate her. /[id number] Pepe Krishna MD, BLAKE Pain Certified EN/MIRIAN / EN / MODL CC: Janes Mason M.D. Electronically signed by [employer], [facility] Conversion Mobile Ui/Ux Designer Cerner at 02/18/2023 5:03 PM CDT documented in this encounter Plan of Treatment Not on file documented as of this encounter Visit Diagnoses Not on filedocumented in this encounter
--- OUTSIDE RECORDS SUMMARY | 2025-08-06 11:06 | XMS_ITS | Encounter Summary ---
Author Organization [employer] ([place], [place], [place], [place]) Address [address] [place] [address] Care Team Providers Care Welfare Visitor Name Role Phone Unavailable Primary Care Provider Unavailabl e Encounter Details Date Type Department Care Team (Late st Contact Info) Description 08/17/2019 Transcribed Document [facility] [place] [facility] [place] [address] ProviderDarrell MD [address] [place] [address] Social History Tobacco Use Types Packs/Day Years [...] Dr. Janes Mason Electronically signed by [employer] [facility] Conversion Reaming Machine Tender Cerner at 02/18/2023 4:52 PM CDT documented in this encounter Plan of Treatment Not on file documented as of this encounter Visit Diagnoses Not on filedocumented in this encounter
--- OUTSIDE RECORDS SUMMARY | 2025-08-06 11:06 | XMS_ITS | Encounter Summary ---
Author Organization [employer] ([place], [place], [place], [place]) Address [address] [place] [address] Care Team Providers Care Automotive General Manager Name Role Phone Unavailable Primary Care Provider Unavailabl e Encounter Details Date Type Department Care Team (Late st Contact Info) Description 09/24/2019 Transcribed Document [facility] [place] [facility] [place] [address] Darrell Flores MD [address] [place] [address] [id number] Social History Tobacco Use Types Packs/Day Years Used Date Smoking Tobacco: Never Assessed Comments Unknown Sex and Gender Information Value Date Recorded Sex Assigned at Not on file Legal Sex Female 6:16 PM CDT Gender Identity Not on file Sexual Orientation Not on file documented as of this encounter Miscellaneous Notes * Cerner Conversion Note - Darrell Flores MD - 09/24/2019 11:59 AM DATA WAREHOUSE MANAGER DATE OF PROCEDURE: 09/24/2019 SURGEON: Pepe [...] to continue with the same plan. 1. [place] 7.5/325 three times a day. 2. Lyrica 100 mg 3 times a day. 3. Robaxin 750 mg 3 times a day. 4. Movantik 25 mg 1 a day. 5. I am going to see the patient after 2 to 4 weeks to re-evaluate her. /[id number] Pepe Krishna MD, BLAKE Pain Certified EN/MIRIAN / EN / MODL /[id number] Electronically signed by [employer], [facility] Conversion Residential Mortgage Manager Cerner at 02/18/2023 5:03 PM CDT documented in this encounter Plan of Treatment Not on file documented as of this encounter Visit Diagnoses Not on filedocumented in this encounter
--- OUTSIDE RECORDS SUMMARY | 2025-08-06 11:06 | XMS_ITS | Encounter Summary ---
Author Organization [employer] ([place], [place], [place], [place]) Address [address] [place] [address] Care Team Providers Care Billet Checker Name Role Phone Unavailable Primary Care Provider Unavailabl e Encounter Details Date Type Department Care Team (Late st Contact Info) Description 10/18/2020 Transcribed Document [facility] [place] [facility] [place] [address] ProviderDarrell MD [facility] [place] [address] Social History Tobacco Use Types Packs/Day Years Used Date Smoking Tobacco: Never Assessed Comments Unknown Sex and Gender Information Value Date Recorded Sex Assigned at Not on file Legal Sex Female 6:16 PM CDT Gender Identity Not on file Sexual Orientation Not on file documented as of this encounter Miscellaneous Notes * Cerner Conversion Note - Historical ProviderMD - 10/18/2020 9:38 AM PRINTER TECHNICIAN CR Chest 2 Vws Ordered: 10/17/2020 Auth (Verified) Reason for Exam: SOA 10/18/2020 08:53 10/18/2020 09:38 (QUANG OLIVA APRN) Reviewed by Provider, No further action required x1 documented in this encounter Plan of Treatment Not on file documented as of this encounter Visit Diagnoses Not on filedocumented in this encounter
--- OUTSIDE RECORDS SUMMARY | 2025-08-06 11:06 | XMS_ITS | Encounter Summary ---
Author Organization [employer] ([place], [place], [place], [place]) Address [address] [place] [address] Care Team Providers Care Match Up Person Name Role Phone Unavailable Primary Care Provider Unavailabl e Encounter Details Date Type Department Care Team (Late st Contact Info) Description 01/18/2020 Transcribed Document [facility] [place] [address] [place] [address] ProviderDarrell MD [address] [place] [address] Social History Tobacco Use Types Packs/Day Years [...] her Lyrica 3 times daily and her [place] 3 times daily as needed. The patient says that the use of the medication makes her more functional. She denies any adverse effects including toxic effect, sedation, driving problems, or GI problems. The patient says she did go to the Rheumatology appointment and had lots of blood work done, but has not gotten the results yet and has a followup with the health technical writer in February. REVIEW OF SYSTEMS: The patient [...] 100 mg 3 times daily. 3. Continue [place] 7.5/325 mg 3 times daily as needed. [...] medications for this patient's treatment plan today. /[id number] FLOYD Mullins/MIRIAN / PITA / MODL CC: MD Nneka Alcantar APRN Electronically signed by [employer] Conversion [employer] Art Teacher Cerner at 02/18/2023 4:48 PM CDT documented in this encounter Plan of Treatment Not on file documented as of this encounter Visit Diagnoses Not on filedocumented in this encounter
--- OUTSIDE RECORDS SUMMARY | 2025-08-06 11:06 | XMS_ITS | Encounter Summary ---
Author Organization [employer] ([place], [place], [place], [place]) Address [address] [place] [address] Care Team Providers Care Poultry Picker Name Role Phone Unavailable Primary Care Provider Unavailabl e Encounter Details Date Type Department Care Team (Late st Contact Info) Description 11/10/2019 Transcribed Document [facility] [place] [address] [place] [address] ProviderDarrell MD [address] [place] [address] Social History Tobacco Use Types Packs/Day Years Used Date Smoking Tobacco: Never Assessed Comments Unknown Sex and Gender Information Value Date Recorded Sex Assigned at Not on file Legal Sex Female 6:16 PM CDT Gender Identity Not on file Sexual Orientation Not on file documented as of this encounter Miscellaneous Notes * Cerner Conversion Note - Historical ProviderMD - 11/10/2019 8:58 AM DOUGHMAKER DATE OF ADMISSION: 11/09/2019 HISTORY OF PRESENT [...] home exercises in addition to taking her Sulphur 3 times daily as needed and her Lyrica 3 times daily. The patient says that she is currently seeing a sample collector every 3 months due to some respiratory [...] if we could refer her to a dressing machine operator that she would like to be evaluated [...] with alcohol, or self-escalate it. 2. Continue Sulphur 7.5/325 mg 3 times daily as needed. [...] medications for this patient's treatment plan today. /[id number] DICTATED BY: Jazz Orta APRN for Pepe Krishna MD, BLAKE Pain Certified Pepe Krishna MD, BLAKE Pain Certified PITA/AQ / PITA / MODL CC: FLOYD Lazo MD Electronically signed by [facility], [facility] Conversion Crop Insurance Claims Adjuster Cerner at 02/18/2023 5:00 PM CDT documented in this encounter Plan of Treatment Not on file documented as of this encounter Visit Diagnoses Not on filedocumented in this encounter
--- OUTSIDE RECORDS SUMMARY | 2025-08-06 11:06 | XMS_ITS | Referral Summary ---
Author Organization [employer] ([place], [place], [place], [place]) Address [address] [place] [address] Care Team Providers Care Patrol Sergeant Name Role Phone Unavailable Primary Care Provider [...] HYDROcodone-elaine taminophen (NORCO) 5-325 mg per tablet [place] 5 mg-325 mg tablet Take 1 tablet [...] on file Insurance MEDICARE PART A B /[facility] Member Subscriber Plan / Payer (Ef fective 2023-Present) Name:Darshana Barr Relation to Subscriber:Self Name:Darshana Barr Payer ID:Not on file Group ID:[id number] Type:Not on file Address: [facility] [id number] [place] [id number]
--- OUTSIDE RECORDS SUMMARY | 2025-08-06 11:06 | XMS_ITS | Encounter Summary ---
Author Organization [employer] ([place], [place], [place], [place]) Address [address] [place] [address] Care Team Providers Care Medical Transport Specialist Name Role Phone Unavailable Primary Care Provider Unavailabl e Encounter Details Date Type Department Care Team (Late st Contact Info) Description 05/11/2019 Transcribed Document [facility] [place] [facility] [place] [address] ProviderDarrell MD [address] [place] [address] Social History Tobacco Use Types Packs/Day Years [...] says that she has been taking her [place] 2-3 times daily as needed. The patient [...] Lyrica 100 mg 3 times daily and [place] 7.5/325 mg 2-3 times daily as needed. [...] to give the patient 7.5/325 mg of [place] 3 times a day consistently with #90 [...]
--- OUTSIDE RECORDS SUMMARY | 2025-08-06 11:06 | XMS_ITS | Encounter Summary ---
Author Organization [employer] ([place], [place], [place], [place]) Address [address] [place] [address] Care Team Providers Care Phosphoric Acid Supervisor Name Role Phone Unavailable Primary Care Provider Unavailabl e Encounter Details Date Type Department Care Team (Late st Contact Info) Description 06/08/[address] [facility] [place] [address] ProviderDarrell MD [address] [place] [address] Social History Tobacco Use Types Packs/Day Years [...] Lyrica 100 mg 3 times daily and [place] 7.5/325 mg 3 times daily as needed. [...] doing well with the increase in the [place] and it is giving her so much [...] with alcohol, or self-escalate it. 2. Continue [place] 7.5/325 mg 3 times daily. 3. Continue [...] for pain alleviation prior to taking her [place], including heat, ice, relaxation, rest, and meditation. [...]
--- OUTSIDE RECORDS SUMMARY | 2025-08-06 11:06 | XMS_ITS | Encounter Summary ---
Author Organization [employer] ([place], [place], [place], [place]) Address [address] [place] [address] Care Team Providers Care Cloth Shrinking Machine Operator Name Role Phone Unavailable Primary Care Provider Unavailabl e Encounter Details Date Type Department Care Team (Late st Contact Info) Description 10/17/2020 Transcribed Document [facility] [place] Family Medicine [facility] [place] [address] ProviderDarrell MD [address] [place] [address] Social History Tobacco Use Types Packs/Day [...] Darrell Flores MD - 10/17/2020 11:07 PM WOODWORKER HELPER [place] [place] [address] JAYCOB FERMINMARY KATE SAUNDERS :1965 [...] with new or worsening symptoms. Where: [address] [facility] [address] [place] [address] Business (1) Follow Up with REYES BRONSON When Within 2 to 3 days Where: [address], [address] [place] [address] [facility] (1) Allergies Tylenol with Codeine (Vomiting, Nausea, Chest pain) penicillin (Unknown) Immunizations This Visit No Immunizations Found Medications What How Much When Instructions Next Dose acetaminophen-hydrocodone ([place] 7.5 mg-325 mg oral tablet) 1 Tablet(s) [...] range between ( 0.0 and 7.0 ) Daniels #: 0.83 K/uL -- Normal range between ( 0.16 and 1.00 ) Eos #: 0.01 x10(3)/uL -- Normal range between ( 0.00 and 0.80 ) Daniels %: 4.3 % -- Normal range between [...] these instructions at home: Medicines ??? Take tvtl-usn-hmuofpq and prescription medicines only as told by [...] and water are not available, use hand soldering technician. Contact a health care provider if: ??? [...] 10/21/2006 Document Revised: 06/18/2019 Document Reviewed: 06/18/2019 [employer] Patient Education ?? 2020 [employer] Emergency Awareness and Preventative Care STROKE [...] Assistance with quitting is available by contacting 5-430-ODPRNOW. This is a free resource providing counseling, support, and referral. Or you may contact your personal physician. App[employer] Suicide Prevention Lifeline: The National Suicide Prevention [...] including: emergency, radiology, or pathology physicians. Patient Name:FERIMN DEVRIES I have received this information and was given the opportunity to ask questions. Patient/Software Engineer Advisor Name: Patient/Software Engineer Advisor Signature: Relationship to Patient: Clinician/Hospital Software Engineer Advisor Signature: Please Provide a Telephone Number Where You Can Be Reached: Is it Permissible To Leave a Message? Date: documented in this encounter Plan of Treatment Not on file documented as of this encounter Visit Diagnoses Not on filedocumented in this encounter
--- OUTSIDE RECORDS SUMMARY | 2025-08-06 11:06 | XMS_ITS | Encounter Summary ---
Author Organization [employer] ([place], [place], [place], [place]) Address [address] [place] [address] Care Team Providers Care Bagel Maker Name Role Phone Unavailable Primary Care Provider Unavailabl e Encounter Details Date Type Department Care Team (Late st Contact Info) Description 01/06/2021 Transcribed Document [facility] [place] Family [place] [facility] [place] [address] ProviderDarrell MD [facility] [place], [place] [id number] Social History Tobacco Use Types Packs/Day Years Used Date Smoking Tobacco: Never Assessed Comments Unknown Sex and Gender Information Value Date Recorded Sex Assigned at Not on file Legal Sex Female 6:16 PM CDT Gender Identity Not on file Sexual Orientation Not on file documented as of this encounter Miscellaneous Notes * Cerner Conversion Note - Historical ProviderMD - 01/06/2021 12:16 PM LEAFLET DISTRIBUTOR Pre Procedure Adult Entered On: 01/06/2021 12:18 EST Performed On: 01/06/2021 12:16 EST by Ligia Walter RN Height and Weight, Clinical Dosing Height Source : Stated Height Entry Format : [place] Height, Feet : 5 ft(Converted to: 152 cm, 60 Inch) Height, Inches : 4 Inch(Converted to: 0 ft 4 Inch, 10.16 cm) Clinical Height : 162.56 cm Weight Source : Standing scale Weight Entry Format : [place] Clinical Dosing Weight : 99.15 kg Weight, Pounds : 218 lb Weight, Ounces : 2 oz Body Surface Area (BSA) : 2.03 m2 Body Mass Index : 37.5 kg/m2 (HI) Johnson Body Weight : 54 kg Ligia Walter [...] Ligia Walter RN - 01/06/2021 12:16 EST [place] Suicide Severity Rating Scale (C-SSRS) CSSRS Past [...] Info Preferred Name : wilfred Support Person/Patient Senior C Software Developer : Yes Support Person/Pt Rep Name : Chrissy Barr, Marina Perez, mother Support Person/Pt Rep Contact Information : [phone] Want Family/Rep/Phys Notified of Admit : No Emergency Contact #1 : chrissy Emergency Contact #1 Emergency Contact #1 Relationship : spouse Emergency Contact #2 : Emergency Contact #2 Phone Number : Emergency Contact #2 Relationship : Primary Language : Faroese Preferred Communication Mode : Verbal Communication Barrier : None Electromechanical Equipment Assembler Needed : No Ligia Walter RN - [...] Scale Risk Level : 0-24 Low Risk [place] Fall Interventions : Adequate lighting, Non-slip footwear, Wheels locked Ligia Walter RN - 01/06/2021 12:16 EST Valuables and Belongings Valuables and Belongings : Clothing, Personal items Clothing : Common streetwear Clothing Disposition : Bedside Personal Items : Cell phone, Purse Personal Items Disposition : Bedside Ligia Walter RN - 01/06/2021 12:16 EST Electronically signed by [facility] Conversion Shop Laborer Cerner at 02/18/2023 4:52 PM CDT documented in this encounter Plan of Treatment Not on file documented as of this encounter Visit Diagnoses Not on filedocumented in this encounter
--- OUTSIDE RECORDS SUMMARY | 2025-08-06 11:06 | XMS_ITS | Encounter Summary ---
Author Organization [employer] ([place], [place], [place], [place]) Address [address] [place] [address] Care Team Providers Care Copy Room Technician Name Role Phone Unavailable Primary Care Provider Unavailabl e Encounter Details Date Type Department Care Team (Late st Contact Info) Description 04/14/2019 Transcribed Document [facility] [place] [facility] [place] [address] ProviderDarrell MD [address] [place] [address] Social History Tobacco Use Types Packs/Day Years [...]
--- OUTSIDE RECORDS SUMMARY | 2025-08-06 11:06 | XMS_ITS | Encounter Summary ---
Author Organization [employer] ([place], [place], [place], [place]) Address [address] [place] [address] Care Team Providers Care Accounting Manager Name Role Phone Unavailable Primary Care Provider Unavailabl e Encounter Details Date Type Department Care Team (Late st Contact Info) Description 11/24/2018 Transcribed Document [facility] [place] [facility] [place] [address] ProviderDarrell MD [address] [place] [address] Social History Tobacco Use Types Packs/Day Years Used Date Smoking Tobacco: Never Assessed Comments Unknown Sex and Gender Information Value Date Recorded Sex Assigned at Not on file Legal Sex Female 6:16 PM CDT Gender Identity Not on file Sexual Orientation Not on file documented as of this encounter Miscellaneous Notes * Cerner Conversion Note - Historical ProviderMD - 11/24/2018 3:56 PM MEDICAL EDUCATION MANAGER DATE OF ADMISSION: 11/24/2018 HISTORY OF PRESENT [...] it. The patient does continue to take [place] 7.5/325 mg 2-3 times a day as [...] radiculopathy. 4. Cervical spondylosis. PLAN: 1. Refill [place] 7.5/325 mg 2-3 times a day as [...] Dr. Janes Mason Electronically signed by [employer] [facility] Conversion Exhibit Specialist Cerner at 02/18/2023 4:59 PM CDT documented in this encounter Plan of Treatment Not on file documented as of this encounter Visit Diagnoses Not on filedocumented in this encounter
--- OUTSIDE RECORDS SUMMARY | 2025-08-06 11:06 | XMS_ITS | Encounter Summary ---
Author Organization [employer] ([place], [place], [place], [place]) Address [address] [place] [address] Care Team Providers Care Private Equity Analyst Name Role Phone Unavailable Primary Care Provider Unavailabl e Encounter Details Date Type Department Care Team (Late st Contact Info) Description 01/06/2021 Transcribed Document [facility] [facility] [place] [address] ProviderDarrell MD [address] [place] [phone] Social History Tobacco Use Types Packs/Day Years Used Date Smoking Tobacco: Never Assessed Comments Unknown Sex and Gender Information Value Date Recorded Sex Assigned at Not on file Legal Sex Female 6:16 PM CDT Gender Identity Not on file Sexual Orientation Not on file documented as of this encounter Miscellaneous Notes * Cerner Conversion Note - Historical ProviderMD - 01/06/2021 12:45 PM SECURITIES SETTLEMENT PROCESSOR [facility] PACU Summary Primary Physician: SEA OLSON MD Finalized Date/Time: 01/06/21 13:56:56 Pt. Name: FERMIN BARR/Sex: 1965 Female Med Rec #: [id number] Physician: SEA OLSON MD Financial #: [id number] Pt. Type: O Room/Bed: END/ Admit/Disch: 01/06/21 11:16:00 - 01/06/21 13:55:00 Institution: [facility] PACU Case Times Entry 1 In PACU I 01/06/21 13:10:00 Ready for PACU 01/06/21 13:50:00 Discharge Discharge from PACU 01/06/21 13:56:00 I Last Modified By: Nessa Islas RN 01/06/21 13:56:53 [facility] PACU Case Times Audit 01/06/21 13:56:53 Hop Separator: [id number] Modifier: [id number] <+> 1 Ready for PACU Discharge <+> 1 Discharge from PACU I Finalized By: Nessa Islas RN Document Signatures Signed By: Nessa Islas RN 01/06/21 13:56 Electronically signed by [employer] [facility] Conversion Crime Scene Analyst Cerner at 02/18/2023 5:12 PM CDT documented in this encounter Plan of Treatment Not on file documented as of this encounter Visit Diagnoses Not on filedocumented in this encounter
--- OUTSIDE RECORDS SUMMARY | 2025-08-06 11:06 | XMS_ITS | Encounter Summary ---
Author Organization [employer] ([place], [place], [place], [place]) Address [address] [place] [address] Care Team Providers Care Catering Truck Operator Name Role Phone Unavailable Primary Care Provider Unavailabl e Encounter Details Date Type Department Care Team (Late st Contact Info) Description 01/06/2021 Transcribed Document [facility] [place] [address] ProviderDarrell MD [address], [place] [phone] Social History Tobacco Use Types Packs/Day Years Used Date Smoking Tobacco: Never Assessed Comments Unknown Sex and Gender Information Value Date Recorded Sex Assigned at Not on file Legal Sex Female 6:16 PM CDT Gender Identity Not on file Sexual Orientation Not on file documented as of this encounter Miscellaneous Notes * Cerner Conversion Note - Historical ProviderMD - 01/06/2021 1:08 PM BALLET MASTER/MISTRESS Patient Education Materials Follows: Hemorrhoids Hemorrhoids are [...] times a day. General instructions ??? Take mbfi-phf-mmjgrwr and prescription medicines only as told by [...] 07/30/2009 Document Revised: 10/29/2019 Document Reviewed: 03/12/2019 [employer] Patient Education ? 2020 [employer] Instructions for after EGD with Dilation [...] activities are safe for you. ??? Take qgtc-ndc-akkopso and prescription medicines only as told by [...] 01/27/2002 Document Revised: 10/24/2018 Document Reviewed: 06/06/2018 [employer] Patient Education ? 2020 [facility]. documented in this encounter Plan of Treatment Not on file documented as of this encounter Visit Diagnoses Not on filedocumented in this encounter
--- OUTSIDE RECORDS SUMMARY | 2025-08-06 11:06 | XMS_ITS | Encounter Summary ---
Author Organization [employer] ([place], [place], [place], [place]) Address [address] [place] [address] Care Team Providers Care Lead Quality Control Technician Name Role Phone Unavailable Primary Care Provider Unavailabl e Encounter Details Date Type Department Care Team (Late st Contact Info) Description 01/05/2019 Transcribed Document [facility] [place] [facility] [place] [address] ProviderDarrell MD [address] [place] [id number] Social History Tobacco Use Types Packs/Day Years Used Date Smoking Tobacco: Never Assessed Comments Unknown Sex and Gender Information Value Date Recorded Sex Assigned at Not on file Legal Sex Female 6:16 PM CDT Gender Identity Not on file Sexual Orientation Not on file documented as of this encounter Miscellaneous Notes * Cerner Conversion Note - Historical ProviderMD - 01/05/2019 1:45 PM BULK SEALER DATE OF ADMISSION: 01/05/2019 HISTORY OF PRESENT [...] now. The patient does continue to take [place] 7.5/325 mg 2-3 times a day as [...] 5. Long-term opioid use. PLAN: 1. Refill [place] 7.5/325 mg 2-3 times a day as [...] medications were prescribed by me. Dictated By: Llua Denny APRN For Pepe Krishna M.D., BLAKE Pain Certified Pepe Krishna M.D., BLAKE Pain Certified Dict: 01/05/2019 13:45:09 Trans: 01/05/2019 16:00:30 CC1: Pepe Krishna M.D., BLAKE Pain Certified CC2: Dr. Janes Mason documented in this encounter Plan of Treatment Not on file documented as of this encounter Visit Diagnoses Not on filedocumented in this encounter
--- OUTSIDE RECORDS SUMMARY | 2025-08-06 11:06 | XMS_ITS | Encounter Summary ---
Author Organization [employer] ([place], [place], [place], [place]) Address [address] [place] [address] Care Team Providers Care Automobile Carpets Molder Name Role Phone Unavailable Primary Care Provider Unavailabl e Encounter Details Date Type Department Care Team (Late st Contact Info) Description 01/06/2021 Transcribed Document [facility] [place] [facility] [place] [address] ProviderDarrell MD [address] [place] [phone] Social History Tobacco Use Types Packs/Day Years Used Date Smoking Tobacco: Never Assessed Comments Unknown Sex and Gender Information Value Date Recorded Sex Assigned at Not on file Legal Sex Female 6:16 PM CDT Gender Identity Not on file Sexual Orientation Not on file documented as of this encounter Miscellaneous Notes * Cerner Conversion Note - Darrell Flores MD - 01/06/2021 1:10 PM MUFFLE WORKER Patient: FERMIN BARR Age: 55 Years Sex: [...] 12:57:00 (01/06/21 13:05:13) Electronically signed by [employer] [facility] Conversion Monomer Purification Operator Cerner at 02/18/2023 4:46 PM CDT documented in this encounter Plan of Treatment Not on file documented as of this encounter Visit Diagnoses Not on filedocumented in this encounter
--- OUTSIDE RECORDS SUMMARY | 2025-08-06 11:06 | XMS_ITS | Encounter Summary ---
Author Organization [employer] ([place], [place], [place], [place]) Address [address] [place] [address] Care Team Providers Care Radiator Fitter Name Role Phone Unavailable Primary Care Provider Unavailabl e Encounter Details Date Type Department Care Team (Late st Contact Info) Description 01/06/2021 Transcribed Document [facility] [place] [facility] [place] [address] ProviderDarrell MD [address] [place] [phone] Social History Tobacco Use Types Packs/Day Years Used Date Smoking Tobacco: Never Assessed Comments Unknown Sex and Gender Information Value Date Recorded Sex Assigned at Not on file Legal Sex Female 6:16 PM CDT Gender Identity Not on file Sexual Orientation Not on file documented as of this encounter Miscellaneous Notes * Cerner Conversion Note - Historical ProviderMD - 01/06/2021 12:45 PM CARAMEL CANDY MAKER HELPER [facility] Endo IntraOp Summary Primary Physician: SEA OLSON MD Finalized Date/Time: 01/06/21 13:06:19 Pt. Name: FERMIN BARR/Sex: 1965 Female Med Rec #: [id number] Physician: SEA OLSON MD Financial #: [id number] Pt. Type: O Room/Bed: END/ Admit/Disch: 01/06/21 11:16:00 - Institution: [facility] Endo - Case Attendance Entry 1 Entry 2 Entry 3 Case Attendee SEA OLSON MD GHANSAH, NANA DADZIE, Mcclintock, Molly, Rn MD-ANS Role Performed Surgeon/Proceduralist, Anesthesiologist of Watershed Tender, First First Record Time In 01/06/21 12:38:00 [...] BURGESS, MONICA ZEPEDA, LATISHA SHELLEY Role Performed Watershed Tender, Second Scrub, First CARBON CAPTURE POWER PLANT OPERATOR/Nurse Hob Grinder Time In 01/06/21 12:38:00 01/06/21 12:38:00 01/06/21 12:38:00 Time Out 01/06/21 13:08:00 01/06/21 13:08:00 01/06/21 13:08:00 Procedure Gastric Biopsy, Gastric Biopsy, Gastric Biopsy, Esophageal Biopsy, Esophageal Biopsy, Esophageal Biopsy, Esophageal Dilatation Esophageal Dilatation Esophageal Dilatation Other Attendee Superficial Wound Closed By: Last Modified By: Moira Jensen Rn Mcclintock, Molly, Moira Sanchez Rn 01/06/21 13:05:47 01/06/21 13:05:47 01/06/21 13:05:47 [facility] Endo - Case Attendance Audit 01/06/21 13:05:47 Bunch Maker Hand: [id number] Modifier: [id number] 1 <+> Time Out 1 <*> Procedure [...] Biopsy, Esophageal Biopsy, Esophageal Dilatation 01/06/21 12:48:41 Bunch Maker Hand: [id number] Modifier: [id number] 1 <*> Procedure Colonoscopy, Esophagogastroduodenoscopy, Gastric Biopsy, Esophageal Biopsy 2 <*> Procedure Gastric Biopsy, Esophageal Biopsy 3 <*> Procedure Gastric Biopsy, Esophageal Biopsy 4 <*> Procedure Gastric Biopsy, Esophageal Biopsy 5 <*> Procedure Gastric Biopsy, Esophageal Biopsy 6 <*> Procedure Gastric Biopsy, Esophageal Biopsy 01/06/21 12:45:26 Bunch Maker Hand: [id number] Modifier: [id number] 1 <*> Procedure Colonoscopy, Esophagogastroduodenoscopy, Gastric Biopsy 2 <*> Procedure Gastric Biopsy 3 <*> Procedure Gastric Biopsy 4 <*> Procedure Gastric Biopsy 5 <*> Procedure Gastric Biopsy 6 <*> Procedure Gastric Biopsy 01/06/21 12:44:50 Bunch Maker Hand: [id number] Modifier: [id number] 1 <*> Procedure Colonoscopy, Esophagogastroduodenoscopy <+> 2 Procedure <+> 3 Procedure <+> 4 Procedure <+> 5 Procedure <+> 6 Procedure 01/06/21 12:41:08 Bunch Maker Hand: [id number] Modifier: [id number] <*> Case Attendee LANA HERRMANN MD-ANS 01/06/21 12:40:29 Bunch Maker Hand: [id number] Modifier: [id number] 1 <+> Time In 1 <*> Procedure Colonoscopy, Esophagogastroduodenoscopy <+> 2 Time In <+> 3 Time In <+> 4 Time In <+> 5 Time In <+> 6 Time In 01/06/21 12:31:04 Bunch Maker Hand: [id number] Modifier: [id number] <+> 2 Case Attendee <+> 2 Role Performed <+> 3 Case Attendee <+> 3 Role Performed <+> 4 Case Attendee <+> 4 Role Performed <+> 5 Case Attendee <+> 5 Role Performed <+> 6 Case Attendee <+> 6 Role Performed [facility] Endo - Case times Entry 1 Patient In Room Time 01/06/21 12:38:00 Out Room Time 01/06/21 13:08:00 Anesthesia Start Time 01/06/21 12:38:00 Stop Time 01/06/21 13:08:00 Surgery / Procedure Times Start Time 01/06/21 12:45:00 Stop Time 01/06/21 13:05:00 Last Modified By: Moira Jensen Rn 01/06/21 13:05:33 [facility] Endo - Case times Audit 01/06/21 13:05:33 Bunch Maker Hand: [id number] Modifier: [id number] <+> 1 Out Room Time <+> 1 Stop Time <+> 1 Stop Time 01/06/21 12:47:15 Bunch Maker Hand: [id number] Modifier: [id number] <+> 1 Start Time [facility] Endo - Cultures and Spec Summary Entry 1 Cultrures and Specimens Specimen Ordered: Yes Test(s) Routine/Path-Lab Requested/Final Disposition Last Modified By: Moira Jensen Rn 01/06/21 12:47:42 [facility] Endo - Delays Entry 1 Delay Reason Other, No Delay Duration 0 Minute(s) Last Modified By: Moira Jensen Rn 01/06/21 12:31:14 [facility] Endo - Departure from OR Entry 1 Integumentary Assessment Integumentary WDL Assessment WDL Transfer/Handoff Transfer to PACU Phase I Post-op Transport Stretcher/Gurney Via Patient Transport Moira Jensen Rn Accompanied by Last Modified By: Moira Jensen Rn 01/06/21 12:40:40 [facility] Endo - Departure from OR Audit 01/06/21 12:40:40 Bunch Maker Hand: [id number] Modifier: [id number] 1 <*> Patient Transport Accompanied by Moira Jensen, Rn 1 <-> Handoff Method Bedside/Face to face [facility] Endo - Endoscopy Details Entry 1 Abdomen Procedure Soft, Non-Tender Assessment Procedure Abdomen 01/06/21 12:38:00 Assessment D/T Radio Frequency Ablation Abdominal Pressure Last Modified By: Moira Jensen Rn 01/06/21 12:38:50 [facility] Endo - Fire Risk Assessment Entry 1 Fire Info Surgical Site or 1- Yes Incision Above the Xyphoid Open O2 Source 1- Yes (Mask or Cannula) Available Ignition 1- Yes (ESU, Laser, Light Source) Fire Risk 3 Assessment Score Fire Score Fire Risk Yes Assessment Complete Fire Risk Moira Jensen, Fleet Manager Verified By Fire Risk 01/06/21 12:39:00 Assessment Verified Date/Time Fire Risk High Risk Protocol Yes Implemented Standard Fire Yes Safety Precautions Followed Last Modified By: Moira Jensen Rn 01/06/21 12:39:28 [facility] Endo - Fire Risk Assessment Audit 01/06/21 12:39:28 Bunch Maker Hand: [id number] Modifier: [id number] <+> 1 Fire Risk Assessment Complete <+> 1 Fire Risk Assessment Verified Date/Time [facility] Endo - General Case Driver'S License Examiner 1 Case Information OR Endo 03 [facility] Case Level 1 Room Verified Yes Wound Class III - Contaminated Specialty SN Gastroenterology Anesthesia Type General ASA Class 3 Diagnosis Preop Diagnosis dysphagia/screening Postop Same As Preop Yes Postop Diagnosis dysphagia/screening Last Modified By: Moira Jensen Rn 01/06/21 12:39:17 [facility] Endo - General Case Data Audit 01/06/21 12:39:17 Bunch Maker Hand: [id number] Modifier: [id number] <+> 1 ASA Class <+> 1 Postop Same As Preop <+> 1 Preop Diagnosis <+> 1 Postop Diagnosis [facility] Endo - Intraoperative Assessment Entry 1 Valid History / Yes Physical in Chart Preoperative Yes Checklist Reviewed/Evaluated Patient is Latex No Sensitive Level of WDL Consciousness (WDL = Alert, Oriented to Person, Place, and Time) Last Modified By: Moira Jensen Rn 01/06/21 12:31:39 [facility] Endo - Intraoperative Equipment Entry 1 Equipment Intraop Monitoring Electrocardiogram Three lead placement (ECG) Electrode Placement Blood Pressure Arm, left upper Location Pulse Oximeter Hand, right Probe Site Antiembolic Devices Scopes Flexible Endoscopes Gastroscope Used Scope Serial N, K Number/Identificatio n Number Photo/Video Documentation Photo Yes Video No Last Modified By: Moira Jensen Rn 01/06/21 12:41:53 [facility] Endo - Intraoperative Equipment Audit 01/06/21 12:41:53 Bunch Maker Hand: [id number] Modifier: [id number] 1 <*> Photo Yes 1 <*> Video No 1 <*> Electrocardiogram (ECG) Electrode Three lead placement Placement 1 <*> Blood Pressure Location Arm, left upper 1 <*> Pulse Oximeter Probe Site Hand, right 1 <*> Flexible Endoscopes Used Gastroscope 1 <+> Scope Serial Number/Identification Number [facility] Endo - Patient Positioning Entry 1 Procedure [...] Modified By: Moira Jensen Rn 01/06/21 12:48:41 [facility] Endo - Patient Positioning Audit 01/06/21 12:48:41 Bunch Maker Hand: [id number] Modifier: [id number] 1 <*> Procedure Esophagogastroduodenoscopy, Gastric Biopsy, Esophageal Biopsy 01/06/21 12:45:27 Bunch Maker Hand: [id number] Modifier: [id number] 1 <*> Procedure Esophagogastroduodenoscopy, Gastric Biopsy 01/06/21 12:44:50 Bunch Maker Hand: [id number] Modifier: [id number] 1 <*> Procedure Esophagogastroduodenoscopy [facility] Endo - Sign In Entry 1 Patient, Site, Yes Procedure Identified Surgical Consent Yes Confirmed Surgical Site N/A Marked by person performing procedure Airway Hypothermia Risk No Warming Measures No Taken Last Modified By: Moira Jensen Rn 01/06/21 12:31:56 [facility] Endo - Sign Out Entry 1 RN [...] Modified By: Moira Jensen Rn 01/06/21 13:05:40 [facility] Endo - Surgical Procedures Entry 1 Entry [...] Mcclintock, Molly, Lou 01/06/21 13:05:42 01/06/21 13:05:42 [facility] Endo - Surgical Procedures Audit 01/06/21 13:05:42 Bunch Maker Hand: [id number] Modifier: [id number] <+> 3 Stop <+> 4 Stop <+> 5 Stop 01/06/21 13:05:13 Bunch Maker Hand: [id number] Modifier: [id number] 1 <*> Procedure Colonoscopy 1 <*> Start 01/06/21 12:45:00 1 <+> Stop 1 <+> Physician States Cecum Reached 2 <*> Procedure Esophagogastroduodenoscopy 2 <+> Stop 01/06/21 12:48:40 Bunch Maker Hand: [id number] Modifier: [id number] <+> 5 Procedure <+> 5 Primary Procedure <+> 5 Primary Surgeon <+> 5 Specialty <+> 5 Start <+> 5 Wound Class <+> 5 Anesthesia Type 01/06/21 12:47:35 Bunch Maker Hand: [id number] Modifier: [id number] <+> 1 Start <+> 2 Start <+> 3 Start <+> 4 Start 01/06/21 12:45:25 Bunch Maker Hand: [id number] Modifier: [id number] <+> 4 Procedure <+> 4 Primary Procedure <+> 4 Primary Surgeon <+> 4 Specialty <+> 4 Wound Class <+> 4 Anesthesia Type 01/06/21 12:44:49 Bunch Maker Hand: [id number] Modifier: [id number] <+> 3 Procedure <+> 3 Primary Procedure <+> 3 Primary Surgeon <+> 3 Specialty <+> 3 Wound Class <+> 3 Anesthesia Type <+> 3 Additional Procedure Description [facility] Endo - Time Out Entry 1 Procedure [...] Modified By: Moira Jensen Rn 01/06/21 12:48:42 [facility] Endo - Time Out Audit 01/06/21 12:48:42 Bunch Maker Hand: [id number] Modifier: [id number] 1 <*> Procedure to be Performed Colonoscopy, Esophagogastroduodenoscopy, Gastric Biopsy, Esophageal Biopsy 01/06/21 12:45:27 Bunch Maker Hand: [id number] Modifier: [id number] 1 <*> Procedure to be Performed Colonoscopy, Esophagogastroduodenoscopy, Gastric Biopsy 01/06/21 12:44:51 Bunch Maker Hand: [id number] Modifier: [id number] 1 <*> Procedure to be Performed Colonoscopy, Esophagogastroduodenoscopy Case Comments <None> Finalized By: Moira Jensen Rn Document Signatures Signed By: Moira Jensen Rn 01/06/21 13:06 Electronically signed by [employer] [facility] Conversion Undergraduate Internship Cerner at 02/18/2023 5:01 PM CDT documented in this encounter Plan of Treatment Not on file documented as of this encounter Visit Diagnoses Not on filedocumented in this encounter
--- OUTSIDE RECORDS SUMMARY | 2025-08-06 11:06 | XMS_ITS | Encounter Summary ---
Author Organization [employer] ([place], [place], [place], [place]) Address [address] [place] [address] Care Team Providers Care Accounts Receivable Coordinator Name Role Phone Unavailable Primary Care Provider Unavailabl e Encounter Details Date Type Department Care Team (Late st Contact Info) Description 07/17/2019 Transcribed Document [facility] [place] [facility] [place] [address] ProviderDarrell MD [address] [place] [id number] Social History Tobacco Use Types Packs/Day Years [...] Lyrica 100 mg 3 times daily and [place] 7.5/325 mg 3 times daily. The patient [...] with alcohol, or self-escalate it. 2. Continue [place] 7.5/325 mg 3 times daily as needed. [...] BLAKE Pain Certified CC2: Janes Mason MD Electronically signed by Landon Grubbs Conversion Instruments Sales Representative Cerner at 02/18/2023 5:02 PM CDT documented in this encounter Plan of Treatment Not on file documented as of this encounter Visit Diagnoses Not on filedocumented in this encounter
--- OUTSIDE RECORDS SUMMARY | 2025-08-06 11:06 | XMS_ITS | Clinical Summary ---
Author Organization [facility] Address [address] [place] [address] Care Team Providers Care Banquet Kitchen Supervisor Name Role Phone Janes Mason MD Primary Care Provider [phone] Allergies Active Allergy Reactions Criticality Noted Date [...] to complete this topic Insurance Care Teams Banquet Kitchen Supervisor Relationship Specialty Start Date End Date Janes Mason MD [address] [place] [address] PCP - General Family Medicine 11/13/12
--- OUTSIDE RECORDS SUMMARY | 2025-08-06 11:06 | XMS_ITS | Encounter Summary ---
Author Organization [employer] ([place], [place], [place], [place]) Address [address] [place] [address] Care Team Providers Care Early Childhood Name Role Phone Unavailable Primary Care Provider Unavailabl e Encounter Details Date Type Department Care Team (Late st Contact Info) Description 01/04/2021 Transcribed Document [facility] [place] [facility] [place] [address] ProviderDarrell MD [address] [place] [phone] Social History Tobacco Use Types Packs/Day Years Used Date Smoking Tobacco: Never Assessed Comments Unknown Sex and Gender Information Value Date Recorded Sex Assigned at Not on file Legal Sex Female 6:16 PM CDT Gender Identity Not on file Sexual Orientation Not on file documented as of this encounter Miscellaneous Notes * Cerner Conversion Note - Historical ProviderMD - 01/04/2021 2:39 PM SOFTWARE QUALITY MANAGER DATE OF SERVICE: 12/21/2020 The patient's height [...] for oxygen therapy. Clinical correlation is suggested. /[id number] MD XIAO Roberson/MIRIAN / XIAO / MISAEL /[id number] Electronically signed by Interface, [facility] Conversion Refuse Collector Supervisor Cerner at 02/18/2023 5:14 PM CDT documented in this encounter Plan of Treatment Not on file documented as of this encounter Visit Diagnoses Not on filedocumented in this encounter
--- OUTSIDE RECORDS SUMMARY | 2025-08-06 11:06 | XMS_ITS | Encounter Summary ---
Author Organization [email or web address] ([place], [place], [place], [place]) Address [address] [place] [address] Care Team Providers Care Flume Worker Name Role Phone Unavailable Primary Care Provider Unavailabl e Encounter Details Date Type Department Care Team (Late st Contact Info) Description 10/12/2019 Transcribed Document [facility] [place] [address] ProviderDarrell MD [address] [place] [phone] Social History Tobacco Use Types Packs/Day Years Used Date Smoking Tobacco: Never Assessed Comments Unknown Sex and Gender Information Value Date Recorded Sex Assigned at Not on file Legal Sex Female 6:16 PM CDT Gender Identity Not on file Sexual Orientation Not on file documented as of this encounter Miscellaneous Notes * Cerner Conversion Note - Historical ProviderMD - 10/12/2019 2:22 PM PIERCE AND SHAVE PRESS OPERATOR DATE OF ADMISSION: 10/12/2019 Darshana Barr is [...] will discuss it in the next visit. /[id number] Pepe Krishna MD, BLAKE Pain Certified KR/AQ / KR / MODL CC: Janes Mason MD documented in this encounter Plan of Treatment Not on file documented as of this encounter Visit Diagnoses Not on filedocumented in this encounter
--- OUTSIDE RECORDS SUMMARY | 2025-08-06 11:06 | XMS_ITS | Encounter Summary ---
Author Organization [employer] ([place], [place], [place], [place]) Address [address] [place] [address] Care Team Providers Care Digital Production Operator Name Role Phone Unavailable Primary Care Provider Unavailabl e Encounter Details Date Type Department Care Team (Late st Contact Info) Description 01/04/2021 Transcribed Document [facility] [place] [facility] [place] [address] ProviderDarrell MD [address] [place] [phone] Social History Tobacco Use Types Packs/Day Years Used Date Smoking Tobacco: Never Assessed Comments Unknown Sex and Gender Information Value Date Recorded Sex Assigned at Not on file Legal Sex Female 6:16 PM CDT Gender Identity Not on file Sexual Orientation Not on file documented as of this encounter Miscellaneous Notes * Cerner Conversion Note - Historical ProviderMD - 01/04/2021 2:42 PM WEB PROGRAMMER DATE OF SERVICE: 12/21/2020 Height 64 inches [...] was normal. 4. Clinical correlation is suggested. /[id number] Della Ortiz MD HE/AQ / XIAO / MODL /[id number] documented in this encounter Plan of Treatment Not on file documented as of this encounter Visit Diagnoses Not on filedocumented in this encounter
[2025-08-06 11:25] VITALS: BP 117/70; PULSE 78; RESP 16; O2SAT 98
[2025-08-06] MEDS: BENRALIZUMAB 30 MG SUBCUT (11:25)
== END 2025-08-06 23:59 | disposition home or self-care (01) ==
LOC: INF 11:02
PROVIDERS: PCP Family Medicine; Visit Provider Internal Medicine Pulmonary Disease
DX: J82.83 Eosinophilic asthma (principal)
CPT/HCPCS: 96372; J0517

== ENCOUNTER 2025-08-15 14:22 | Observation (INO) | payer MEDICARE, BC, SELFPAY ==
--- OUTSIDE RECORDS SUMMARY | 2021-10-13 10:53 | XMS_ITS | Encounter Summary ---
[facility] [address] [place] [address] Care Team Providers Care Wares Sorter Name Role Phone Janes Mason MD Primary Care Provider [phone] Reason for Visit * Diagnostic Imaging (Routine) - Closed Specialty Diagnoses / Procedures Referred By Contac t Referred To Contact Radiology Diagnoses Nontoxic multinodular goiter Procedures US Thyroid Raeann Carslon MD [address] [place] [address] Phone: tel: fax: [facility] [address] [place] [phone] Phone: tel: fax: Referral ID Status Reason Start Date Expiration Date Visits Re quested Visits Authorized [id number] Closed 10/13/2021 10/13/2022 1 1 Encounter Details Date Type Department Care Team (Late st Contact Info) Description 10/13/2021 9:53 AM EST Hospital Encounter [facility] [address] [place] [phone] Social History Tobacco Use Types Packs/Day [...] on filedocumented in this encounter Care Teams Wares Sorter Relationship Specialty Start Date End Date Janes Mason MD [address] [place] [address] PCP - General Family Medicine 07/11/21 documented as of this encounter
[2025-08-15] VITALS (20 sets, daily range): BP systolic 85–136; BP diastolic 56–79; PULSE 86–139; RESP 11–17; TEMP 36.7–36.8; O2SAT 95–100; BMI 32.5
--- NOTE | 2025-08-15 15:08 | HMH.EDGENADL ---
Discharge Plan Disposition Patient Disposition: Admitted Condition: Good Clinical Impressions Clinical Impression: Anaphylaxis Qualifiers: Encounter type: initial encounter Qualified Code(s): T78.2XXA - Anaphylactic shock, unspecified, initial encounter Discharge ED Provider: Yesi Vallejo Adult HPI General Chief complaint: Allergic Reaction Stated complaint: hives all over body Time Seen by Provider: 08/15/25 15:08 Mode of Arrival: Ambulatory Source of Information: Patient Description of Symptoms (Recalled from ER Triage Doc. by RN): pt has been on clinda for 5 days for an infected tooth. woke up this morning with a rash and itching all over her body. she took a benadryl and claritin. History of Present Illness HPI narrative: Patient is a 60-year-old female who presented to the emergency department with a rash. Patient states that she started having a rash today around 12:30 PM. Patient states that she feels itchy patient is not having any trouble breathing or swallowing. Patient has not had any vomiting or diarrhea. Patient is not having any abdominal pain. Patient denies any new exposures to detergents lotions. Patient has no known allergens. Patient states that she has been on clindamycin for 5 days for a tooth infection but patient had tolerated clindamycin without difficulties in the past. Related Data Home Medications ?Medication ?Instructions ?Recorded ?Confirmed hydrocodone 7.5 mg-acetaminophen 1 tab PO TID 07/20/24 08/16/25 325 mg tablet pregabalin 50 mg capsule 50 mg PO BIDP PRN Moderate Pain 07/20/24 08/16/25 (Scale Score 5-6) fluticasone propionate 50 2 spray intranasal DAILY 10/22/24 08/16/25 mcg/actuation nasal spray,suspension albuterol sulfate 90 mcg/actuation 2 puff inhalation Q6HP PRN 08/16/25 08/16/25 aerosol inhaler Shortness Of Breath fluoxetine 20 mg capsule 20 mg PO DAILY 08/16/25 08/16/25 Previous Rx's ?Medication ?Instructions ?Recorded benralizumab 30 mg/mL subcutaneous 30 mg SQ Q8W #1 mL 04/28/25 syringe (Fasenra) budesonide-formoterol HFA 160 2 puff inhalation BID #10.2 grams 08/17/25 mcg-4.5 mcg/actuation aerosol inhaler (Breyna) diphenhydramine HCl 25 mg capsule 25 mg PO Q6HP PRN Itching #30 caps 08/17/25 epinephrine 0.3 mg/0.3 mL 0.3 mg (0.3 mL) IM ONCE PRN 08/17/25 injection, auto-injector (EpiPen) anaphylaxis #1 ea famotidine 20 mg tablet 20 mg PO BID 7 days #14 tabs 08/17/25 fexofenadine 180 mg tablet 180 mg PO DAILY #30 tabs 08/17/25 (Gilda Allergy) ivermectin 6 mg tablet 18 mg (3 x 6 mg) PO DAILY 2 doses 08/17/25 #6 tabs Allergies Allergy/AdvReac Type Severity Reaction Status Date / Time Penicillins Allergy Mild Unknown Verified 07/09/25 10:42 allergy reaction Sulfa (Sulfonamide Allergy Hives Verified 07/09/25 10:42 Antibiotics) codeine AdvReac Vomiting Verified 07/09/25 10:42 [facility] Disclaimer: The information contained in this section may have been updated after the patient was seen, as this information can be updated by other users. Medical History Viral pneumonia Chronic neck pain Bronchitis Shortness of Breath Cough Pneumonia Febrile illness, acute Body aches Acute dyspnea Allergic rhinitis Dyspnea on exertion Abnormal EEG Fibroids Endometriosis Surgical History H/O breast augmentation History of appendectomy H/O nasal septoplasty Hx of cholecystectomy History of dilation and curettage multiple H/O laparoscopy Family History Other Asthma Coronary artery disease Heart attack Social History (Updated 08/15/25 @ 21:13 by Rosemary Kendrick RN) Smoking Status: Never smoker alcohol intake: former substance use type: denies use current occupational status: other Travel in the last 8 weeks?: None household members: spouse housing: house marital status: caffeine: No Other Medical History Have you received the Flu Vaccine for this season: No Have you received the Pneumonia Vaccine: Yes ROS Obtained: Yes All systems reviewed & no additional complaints except as documented and Yes Systems reviewed as appropriate & no additional complaints except as documented Physical Exam General General appearance: alert and in no apparent distress Head Head exam: atraumatic, normocephalic and normal inspection Eye Eye exam: Present normal appearance, PERRL and EOMI; Absent scleral icterus ENT ENT exam: Present normal exam and normal external ear exam Neck Neck exam: Present normal inspection and full ROM Chest Chest inspection: Present normal inspection and symmetric chest wall rise Respiratory Respiratory exam: Present normal lung sounds bilaterally; Absent respiratory distress or wheezes Cardiovascular Cardiovascular exam: Present regular rate, normal rhythm and normal heart sounds Abdominal Exam Abdominal exam: Present soft and distention; Absent tenderness, guarding or rebound Extremities Exam Extremities exam: Present normal inspection and full ROM Back Exam Back exam: Present normal inspection and full ROM Neurological Exam Neurological exam: Present alert and oriented X3 Psychiatric Psychiatric exam: Present normal affect and normal mood Skin Skin exam: Present warm, dry and other (diffuse maculopapular rash to the chest, abdomen, arms and extremities) Medical Decision Making Medical Records Medical records reviewed: Yes I reviewed the patient's medical records. Screening: Per USPSTF and CDC recommendations, given the prevalence of disease in our region, it is our hospital?s policy to screen for HIV and viral Hepatitis for all patients aged 18 and over and those with ongoing risk factors. [place] Inquiry Pt receiving controlled substance: No Vital Signs: 08/15/25 15:03 08/15/25 15:30 08/15/25 15:40 Temperature 98.3 F Temperature Source Oral Pulse Rate 139 H 108 H Pulse Rate [Right] 94 H Respiratory Rate 16 Blood Pressure 113/79 113/79 Blood Pressure [Right Arm] 130/77 Blood Pressure Mean Blood Pressure Mean [Right Arm] 94 Blood Pressure Source 02 Sat by Pulse Oximetry 96 95 95 Oxygen Delivery Method Room Air Room Air Room Air 08/15/25 16:00 08/15/25 17:00 08/15/25 17:30 Temperature Temperature Source Pulse Rate 91 H 96 H Pulse Rate [Right] Respiratory Rate 11 L 14 14 Blood Pressure 85/57 L 135/65 Blood Pressure [Right Arm] Blood Pressure Mean Blood Pressure Mean [Right Arm] Blood Pressure Source 02 Sat by Pulse Oximetry 96 96 Oxygen Delivery Method Room Air Room Air 08/15/25 17:51 08/15/25 18:00 08/15/25 19:00 Temperature Temperature Source Pulse Rate 86 98 H Pulse Rate [Right] Respiratory Rate 13 17 Blood Pressure 135/65 124/67 129/56 L Blood Pressure [Right Arm] Blood Pressure Mean 81 Blood Pressure Mean [Right Arm] Blood Pressure Source 02 Sat by Pulse Oximetry 100 99 Oxygen Delivery Method Room Air Room Air 08/15/25 19:00 08/15/25 19:07 08/15/25 19:07 Temperature Temperature Source Pulse Rate 91 H 96 H 91 H Pulse Rate [Right] Respiratory Rate Blood Pressure Blood Pressure [Right Arm] Blood Pressure Mean Blood Pressure Mean [Right Arm] Blood Pressure Source 02 Sat by Pulse Oximetry 100 Oxygen Delivery Method Room Air 08/15/25 19:15 08/15/25 19:30 08/15/25 19:45 Temperature Temperature Source Pulse Rate 100 H 98 H Pulse Rate [Right] Respiratory Rate Blood Pressure 118/75 Blood Pressure [Right Arm] Blood Pressure Mean 89 Blood Pressure Mean [Right Arm] Blood Pressure Source 02 Sat by Pulse Oximetry 98 96 Oxygen Delivery Method 08/15/25 20:00 08/15/25 20:01 08/15/25 20:01 Temperature Temperature Source Pulse Rate 86 107 H Pulse Rate [Right] Respiratory Rate 14 14 Blood Pressure 122/64 Blood Pressure [Right Arm] Blood Pressure Mean 80 Blood Pressure Mean [Right Arm] Blood Pressure Source 02 Sat by Pulse Oximetry 96 95 Oxygen Delivery Method 08/15/25 20:55 Temperature 98.0 F Temperature Source Oral Pulse Rate 109 H Pulse Rate [Right] Respiratory Rate 14 Blood Pressure 136/70 Blood Pressure [Right Arm] Blood Pressure Mean Blood Pressure Mean [Right Arm] Blood Pressure Source Automatic Cuff 02 Sat by Pulse Oximetry Oxygen Delivery Method Room Air Lab Data Lab results reviewed: Yes I reviewed the patient's lab results. Lab Results 08/15/25 15:51: Chlamy pneumoniae PCR Not detected, Adenovirus (PCR) Not detected, B. pertussis DNA (PCR) Not detected, Coronavirus OC43 (PCR) Not detected, Coronavirus HKU1 (PCR) Not detected, Coronavirus 229E (PCR) Not detected, SARS-CoV-2 (PCR) Not detected, Coronavirus NL63 (PCR) Not detected, Human Metapneumovir PCR Not detected, Influenza A (H1) PCR Not detected, Influ A (H1N1/09) PCR Not detected, Influenza A (H3) PCR Not detected, Influenza Type A (PCR) Not detected, Influenza Type B (PCR) Not detected, M. pneumoniae (PCR) Not detected, Parainfluenza 1 (PCR) Not detected, Parainfluenza 2 (PCR) Not detected, Parainfluenza 3 (PCR) Not detected, Parainfluenza 4 (PCR) Not detected, RSV (PCR) Not detected, Entero/Rhino (PCR) Not detected 08/15/25 17:07: WBC 18.5 H, RBC 4.81, Hgb 13.8, Hct 41.8, MCV 86.9, MCH 28.7, MCHC 33.0, RDW 13.0, Plt Count 357, MPV 8.9, Neut % (Auto) 76.6, Lymph % (Auto) 15.3, Mcdowell % (Auto) 7.6, Eos % (Auto) 0.0 L, Baso % (Auto) 0.1, Neut # (Auto) 14.2 H, Lymph # (Auto) 2.8, Mcdowell # (Auto) 1.4 H, Eos # (Auto) 0.0, Baso # (Auto) 0.0, D-Dimer 3.64 H, Sodium 138, Potassium 3.7, Chloride 103, Carbon Dioxide 25, Anion Gap 13.7, BUN 12, Creatinine 1.00, Estimated Creat Clear 83, Estimated GFR 57 L, Est GFR ( Amer) 69, Glucose 139 H, Calcium 9.4, Total Bilirubin 0.7, AST 26, ALT 22, Alkaline Phosphatase 91, Troponin I < 0.01, Total Protein 7.2, Albumin 4.1, Globulin 3.1, Albumin/Globulin Ratio 1.3, Lipase 95, TSH 1.97, Free T4 1.58, HCV Ab ADRIENNE w/Rflx PCR Qn Negative, HIV Ag/Ab Combo Qual Negative 08/15/25 19:45: Troponin I < 0.01 08/17/25 05:57 08/17/25 05:57 Orders (Tests/Meds): ED MEDICATIONS Discontinued Medications Generic Name Dose Route Start Last Admin Trade Name Freq PRN Reason Stop Dose Admin Acetaminophen 650 mg 08/15/25 20:34 Acetaminophen 325mg Tab PO 09/14/25 20:33 Q4HP PRN Fever or Mild Pain (1-3) Albuterol/Ipratropium 9 ml 08/15/25 18:43 08/15/25 18:56 Ipratropium/Albuterol 3 Ml Neb IH 08/15/25 18:44 9 ml ONCE ONE Administration Albuterol/Ipratropium 3 ml 08/15/25 21:20 Ipratropium/Albuterol 3 Ml [facility] 09/14/25 21:19 Q6HP PRN Shortness Of Breath Diazepam 2 mg 08/15/25 16:47 08/15/25 16:56 Diazepam 10mg/2ml Syringe IM 08/15/25 16:48 2 mg ONCE ONE Administration Diazepam 2 mg 08/15/25 22:56 08/15/25 23:01 Diazepam 10mg/2ml Syringe IV 08/15/25 22:57 2 mg ONCE ONE Administration Diazepam 2 mg 08/16/25 02:39 08/16/25 02:45 Diazepam 10mg/2ml Syringe IV 08/16/25 02:40 2 mg ONCE ONE Administration Diazepam 5 mg 08/16/25 12:30 08/16/25 12:33 Diazepam 5mg Tablet PO 08/16/25 12:31 5 mg ONCE ONE Administration Diphenhydramine HCl 50 mg 08/15/25 15:25 08/15/25 17:11 Diphenhydramine 50mg/Ml Vial IV 08/15/25 15:26 50 mg ONCE ONE Administration Diphenhydramine HCl 50 mg 08/15/25 21:00 08/15/25 21:05 Diphenhydramine 50mg/Ml Vial IV 08/15/25 21:01 50 mg ONCE ONE Administration Diphenhydramine HCl 25 mg 08/16/25 06:00 08/16/25 12:00 Diphenhydramine 25mg Capsule PO 09/15/25 05:59 25 mg Q6HP VIVIAN Administration Diphenhydramine HCl 25 mg 08/16/25 23:06 08/17/25 13:37 Diphenhydramine 25mg Capsule PO 09/15/25 05:59 25 mg Q6HP PRN Administration Itching Emollient Ointment 0 gm 08/16/25 10:09 08/16/25 10:22 Aquaphor (Petrolatum) Oint 85gm TP 09/15/25 10:08 3 oz DAILYP PRN Administration IRRITATED AREA(S) Epinephrine HCl 0.1 mg 08/15/25 16:49 08/15/25 16:55 Epinephrine 1 Mg/Ml Ampul IM 08/15/25 16:50 0.1 mg ONCE ONE Administration Epinephrine HCl 0.3 mg 08/15/25 19:27 08/15/25 19:40 Epinephrine 1 Mg/Ml Ampul IM 08/15/25 19:28 0.3 mg ONCE ONE Administration Famotidine 20 mg 08/15/25 15:25 08/15/25 17:12 Famotidine 20mg/2ml Vial IV 08/15/25 15:26 20 mg ONCE ONE Administration Famotidine 20 mg 08/15/25 21:00 08/16/25 20:32 Famotidine 20mg/2ml Vial IV 09/14/25 20:59 20 mg BID VIVIAN Administration Famotidine 20 mg 08/17/25 09:00 08/17/25 08:56 Famotidine 20mg Tablet PO 09/16/25 08:59 20 mg BID VIVIAN Administration Fluoxetine HCl 20 mg 08/17/25 09:00 08/17/25 08:56 Fluoxetine 20mg Capsule PO 09/16/25 08:59 20 mg DAILY VIVIAN Administration Fluticasone Propionate 2 spray 08/17/25 09:00 08/17/25 08:55 Fluticasone Prop 50mcg Nasal [place] 16gm NS 09/16/25 08:59 2 sprays DAILY VIVIAN Administration Lactated Ringer's 1,000 mls @ 999 mls/hr 08/15/25 17:49 08/15/25 19:55 Lactated Ringer's 1000 Ml Bag IV 08/15/25 18:49 Infused .Q1H1M ONE Infusion Iopamidol 70 ml 08/15/25 18:07 08/15/25 18:08 Iopamidol-370 (76%);100ml Bottle IV 08/15/25 18:08 70 ml ONCE ONE Administration Loratadine 20 mg 08/16/25 10:15 08/16/25 10:22 Loratadine 10mg Tablet PO 08/16/25 10:16 20 mg ONCE ONE Administration Loratadine 10 mg 08/17/25 09:00 08/17/25 08:55 Loratadine 10mg Tablet PO 09/16/25 08:59 10 mg DAILY VIVIAN Administration Methylprednisolone Sodium Succinate 125 mg 08/15/25 15:25 08/15/25 17:12 Methylprednisolone Sod Succ 125mg Vial IM 08/15/25 15:26 125 mg ONCE ONE Administration Methylprednisolone Sodium Succinate 40 mg 08/15/25 20:45 08/15/25 21:23 Methylprednisolone Sod Succ 40mg Vial IV 09/14/25 20:44 40 mg Q12H VIVIAN Administration Methylprednisolone Sodium Succinate 40 mg 08/16/25 09:00 08/17/25 08:55 Methylprednisolone Sod Succ 40mg Vial IV 09/15/25 08:59 40 mg Q12H VIVIAN Administration Ondansetron HCl 4 mg 08/15/25 15:51 08/15/25 17:11 Ondansetron 4mg/2ml Vial IV 08/15/25 15:52 4 mg ONCE ONE Administration Ondansetron HCl 4 mg 08/15/25 16:44 08/15/25 16:45 Ondansetron 4mg Odt SL 08/15/25 16:45 4 mg ONCE ONE Administration Ondansetron HCl 4 mg 08/15/25 20:34 Ondansetron 4mg/2ml Vial IV 09/14/25 20:33 Q6HP PRN Nausea Sodium Chloride 8 ml 08/15/25 15:25 Sodium Chloride 0.9% 10ml Vial IV 09/14/25 15:24 NEEDED PRN dilute pepcid Sodium Chloride 10 ml 08/15/25 18:07 08/15/25 18:08 Sodium Chloride 0.9% 10ml Syr (Rad Only) IV 09/14/25 18:06 10 ml NEEDED PRN Administration Maintain IV Site Sodium Chloride 50 ml 08/15/25 18:07 08/15/25 18:08 0.9 % Sodium Chloride 50 Ml Vial IV 08/15/25 18:08 50 ml ONCE ONE Administration Sodium Chloride 8 ml 08/15/25 20:31 08/16/25 20:32 Sodium Chloride 0.9% 10ml Vial IV 09/14/25 20:30 8 ml NEEDED PRN Administration dilute famotidine Sodium Chloride 10 ml 08/16/25 14:13 Sodium Chloride 0.9% 10ml Flush Syringe IV 09/15/25 14:12 NEEDED PRN Maintain IV Site ORDERS Category Date Time Status CT angio chest PE protocol Stat Cat Scan 08/15/25 17:[address] head/brain wo con Stat Cat Scan 08/15/25 15:54 Completed CXR --portable [XR chest portable] Stat Exams 08/15/25 15:54 Completed CBC w/Auto Diff [Complete Blood Count Auto Diff] Stat Lab 08/15/25 17:07 Completed CMP [Comprehensive Metabolic Panel] Stat Lab 08/15/25 17:07 Completed D-Dimer Stat Lab 08/15/25 17:07 Completed Free T4 (Free Thyroxine) Stat Lab 08/15/25 17:07 Completed HIV Combo Stat Lab 08/15/25 17:07 Completed Hepatitis C Ab Qual. W/ RFX Stat Lab 08/15/25 17:07 Completed Lipase Stat Lab 08/15/25 17:07 Completed TSH [Thyroid Stimulating Hormone] Stat Lab 08/15/25 17:07 Completed Trop I [Troponin I] Stat Lab 08/15/25 17:07 Completed Troponin I Q3H Lab 08/15/25 19:45 Completed Troponin I Q3H Lab 08/15/25 23:24 Completed UA [Urinalysis and Microscopic] Stat Lab 08/15/25 21:20 Completed Blood Culture Stat Micro 08/15/25 17:07 Results Urine Culture Stat Micro 08/15/25 15:51 Completed Medical Decision Narrative: Patient is an otherwise healthy 60-year-old female who presented to the emergency department with concerns for rash. On arrival, patient was hemodynamically stable with unremarkable vital signs. Differential included but not limited to: Allergic reaction, anaphylaxis, drug reaction, contact dermatitis, amongst others. Given that patient was symptomatic from her rash, patient was ordered Protonix, Benadryl, steroids with plan for observation. While placing an IV, patient had a syncopal episode with a large volume emesis. Patient did return back to her baseline however labs were broadened EKG was obtained and CT head was ordered. Initially I felt likely vasovagal secondary to IV placement. Patient was ordered IV fluids as well. On repeat attempts at IV placement, patient had another syncopal episode with large volume emesis. Patient felt mildly short of breath therefore at this time unsure if her vomiting was secondary to IV placement versus anaphylactic reaction. Patient was given IM epinephrine as well to above medications. Labs were reviewed and interpreted by myself: CBC showed a leukocytosis, CMP was unremarkable. D-dimer was significantly elevated, initial troponin less than 0.01. EKG was reviewed and interpreted by myself and showed normal sinus rhythm without acute ST or T wave changes concerning for ischemia. CT head was reviewed and interpreted by myself and showed no acute intracranial pathology. Given patient's significantly elevated D-dimer, CT of the chest was ordered which showed no acute intrathoracic pathology. While in the emergency department, patient's rash completely resolved however then, patient's rash returned and patient was itchy again. At this time, patient was feeling short of breath. Patient was given DuoNebs without significant improvement. At this time, patient was given additional dose of IM epinephrine. Patient's shortness of breath improved therefore at this time I felt the patient warranted admission for repeat anaphylaxis. After discussion with hospital medicine, patient was ultimately admitted to the hospital. Critical Care Critical Care Time Critical Care Time: No
--- OUTSIDE RECORDS SUMMARY | 2025-08-15 15:25 | XMS_ITS | Patient Health Record ---
Author Organization [facility] Address [address] [place] [address] Care Team Providers Care Testing Manager Name Role Phone Ilan Caballero [phone] Allergies Allergen (clinical drug ingredient) Drug/Non Drug [...] Risk Notes Problem Cervical spondylosis without myelopathy (910088645) Cervical spondylosis without myelopathy (M47.812) Active confirmed Problem Cervical post-laminectom y syndrome (168736903) Cervical post-laminectomy syndrome (M96.1) Active confirmed Problem Cervical spondylosis without myelopathy (905170472) Cervical spondylosis with radiculopathy (M47.22) Active confirmed Plan Of Treatment No Information Insurance Providers Payer Name Payer Address Payer Phone Subscriber Number Group Number Insured Name Patient Relationship to Insured Coverage Start Date Coverage End Date [employer] [address] [place] [address] [id number] Darshana Barr Self - patient is the insured Medicare [employer] [address] [address] [place] [address] [id number] Darshana Barr Self - patient is the insured 0 [employer] [address] [place] [address] [id number] Darshana Barr Self - patient is the insured 0 Medical (General) History Medical History History ICD Code ALLERGIES ARTHRITIS ASTHMA DEPRESSION/ANXIETY EMPHYSEMA/COPD HIGH CHOLESTEROL THYROID DISEASE Surgical History Surgery Date(Month/Year) GALLBLADDER/APPENDIX 1991 TOTAL HYSTERECTOMY 2010 CERVICAL SURGERY C5-7 2017 [facility] ABORTED DUE TO SCAR TISSUE 2018 Hospitalization History Reason Date(Month/Year) DOUBLE PNEUMONIA 2018 SEPTIC SHOCK 10/2020
--- OUTSIDE RECORDS SUMMARY | 2025-08-15 15:25 | XMS_ITS | Encounter Summary ---
Author Organization [employer] ([place], [place], [place], [place]) Address [address] [place] [address] Care Team Providers Care Professor Of Kinesiology Name Role Phone Unavailable Primary Care Provider Unavailabl e Encounter Details Date Type Department Care Team (Late st Contact Info) Description 10/17/2020 Transcribed Document [facility] [place] [facility] [place] [address] ProviderDarrell MD [address] [place] [address] [id number] Social History Tobacco Use Types Packs/Day Years Used Date Smoking Tobacco: Never Assessed Comments Unknown Sex and Gender Information Value Date Recorded Sex Assigned at Not on file Legal Sex Female 6:16 PM CDT Gender Identity Not on file Sexual Orientation Not on file documented as of this encounter Miscellaneous Notes * [employer] Conversion Note - Historical ProviderMD - 10/17/2020 11:14 PM MAINTENANCE DATA ANALYST ED Discharge Entered On: 10/17/2020 23:14 EST [...]
--- OUTSIDE RECORDS SUMMARY | 2025-08-15 15:25 | XMS_ITS | Clinical Summary ---
Author Organization Healthcare Address [address] [id number] Care Team Providers Care Parent Trainer Name Role Phone Janes Mason MD Primary Care Provider Social History Tobacco Use Types Packs/Day Years [...] 2 - PCV20 or PCV21) 10/24/2019 10/24/2018 [id number] Vaccine ( season) 2025 09/14/2021, 02/24/2021, 01/10/2021 [...] patient's age to complete this topic Insurance [facility] [place] [address] Care Teams Parent Trainer Relationship Specialty Start Date End Date Janes Mason MD [address] [place] [address] PCP - General 03/17/21
--- OUTSIDE RECORDS SUMMARY | 2025-08-15 15:25 | XMS_ITS | Encounter Summary ---
Author Organization [employer] ([place], [place], [place], [place]) Address [address] [place] [address] Care Team Providers Care Picker Operator Name Role Phone Unavailable Primary Care Provider Unavailabl e Encounter Details Date Type Department Care Team (Late st Contact Info) Description 02/15/2020 Transcribed Document [facility] [place] [address] [place] [address] ProviderDarrell MD [address] [place] [id number] Social History Tobacco Use Types Packs/Day Years [...] following up for medication refills of her [place] and gabapentin. She reports that she is having pain in the left side of her neck. She says the pain never changes. She reports that the pain is [id number] at times. She says that the pain does radiate to the left shoulder. She reports that her pain is an aching sensation. She says she does have associated symptoms of depression and fatigue. She is using cold in addition to taking her Lyrica and [place] as prescribed. The patient says she does [...] and tooth loss. She says that the prepared foods team leader did say she was negative for Sjogren's but she does have an elevated ESR. The patient says that she does have a inbound sales manager, Dr. Crow at [facility] [place], however, she has not seen him in [...] 100 mg 3 times daily. 3. Continue [place] 7.5/325 mg 3 times daily as needed. [...] today and make an appointment with her inbound sales manager in light of her symptoms so that [...] medications for this patient's treatment plan today. /[id number] FLOYD Mullins/MIRIAN / PITA / MODL documented in this encounter Plan of Treatment Not on file documented as of this encounter Visit Diagnoses Not on filedocumented in this encounter
--- OUTSIDE RECORDS SUMMARY | 2025-08-15 15:25 | XMS_ITS | Encounter Summary ---
Author Organization [employer] ([place], [place], [place], [place]) Address [address] [place] [address] Care Team Providers Care Floor Coverings Installer Name Role Phone Unavailable Primary Care Provider Unavailabl e Encounter Details Date Type Department Care Team (Late st Contact Info) Description 10/17/2020 Transcribed Document [facility] [place] [facility] [place] [address] ProviderDarrell MD [address] [place] [address] Social History Tobacco Use Types Packs/Day Years Used Date Smoking Tobacco: Never Assessed Comments Unknown Sex and Gender Information Value Date Recorded Sex Assigned at Not on file Legal Sex Female 6:16 PM CDT Gender Identity Not on file Sexual Orientation Not on file documented as of this encounter Miscellaneous Notes * [employer] Conversion Note - Historical ProviderMD - 10/17/2020 10:58 PM BLACK STUDIES PROFESSOR Electronically signed by [facility] Conversion Church Supervisor [employer]ner at 02/18/2023 4:55 PM CDT documented in this encounter Plan of Treatment Not on file documented as of this encounter Visit Diagnoses Not on filedocumented in this encounter
--- OUTSIDE RECORDS SUMMARY | 2025-08-15 15:25 | XMS_ITS | Encounter Summary ---
Author Organization [employer] ([place], [place], [place], [place]) Address [address] [place] [address] Care Team Providers Care Returned Goods Inspector Name Role Phone Unavailable Primary Care Provider Unavailabl e Encounter Details Date Type Department Care Team (Late st Contact Info) Description 04/11/2020 Transcribed Document [facility] [place] Family Medicine [address] [place] [address] ProviderDarrell MD [address] [place] [address] Social History Tobacco Use Types Packs/Day Years [...] she is still trying to decrease her [place] usage, however, she had to go back [...] have some constipation, but she uses something [id number] that does help with that. The patient is also taking diclofenac as well as Robaxin and Lyrica in addition to the [place] and denies any adverse effects from any [...] 100 mg 3 times daily. 6. Continue [place] 7.5/325 mg 3 times daily as needed. [...] medications for this patient's treatment plan today. /[id number] FLOYD Mullins/MIRIAN / PITA / MODL CC: Janes Mason MD Electronically signed by [employer], [facility] Conversion Claims Account Manager Cerner at 02/18/2023 5:04 PM CDT documented in this encounter Plan of Treatment Not on file documented as of this encounter Visit Diagnoses Not on filedocumented in this encounter
--- OUTSIDE RECORDS SUMMARY | 2025-08-15 15:25 | XMS_ITS | Encounter Summary ---
Author Organization [employer] ([place], [place], [place], [place]) Address [address] [place] [address] Care Team Providers Care Head Sawyer Automatic Name Role Phone Unavailable Primary Care Provider Unavailabl e Encounter Details Date Type Department Care Team (Late st Contact Info) Description 08/04/2020 Transcribed Document [facility] [place] [address] [place] [address] ProviderDarrell MD [address] [place] [address] Social History Tobacco Use Types Packs/Day Years [...] visit and the patient has been afebrile. /[id number] Pepe Krishna MD, BLAKE Pain Certified EN/MIRIAN / EN / MODL CC: Dr. Janes Mason Electronically signed by [facility], [facility] Conversion Negative Spotter Cerner at 02/18/2023 4:48 PM CDT documented in this encounter Plan of Treatment Not on file documented as of this encounter Visit Diagnoses Not on filedocumented in this encounter
--- OUTSIDE RECORDS SUMMARY | 2025-08-15 15:25 | XMS_ITS | Encounter Summary ---
Author Organization [employer] ([place], [place], [place], [place]) Address [address] [place] [address] Care Team Providers Care Industrial Technologist Name Role Phone Unavailable Primary Care Provider Unavailabl e Encounter Details Date Type Department Care Team (Late st Contact Info) Description 10/17/2020 Transcribed Document [facility] [place] Family Medicine Counts include [address] beds [facility] [place] [address] ProviderDarrell MD [address] [place], [place] [address] Social History Tobacco Use Types Packs/Day Years Used Date Smoking Tobacco: Never Assessed Comments Unknown Sex and Gender Information Value Date Recorded Sex Assigned at Not on file Legal Sex Female 6:16 PM CDT Gender Identity Not on file Sexual Orientation Not on file documented as of this encounter Miscellaneous Notes * [employer] Conversion Note - Historical ProviderMD - 10/17/2020 8:40 PM CASEWORKER INTAKE ED Event Note Entered On: 10/17/2020 20:40 [...]
--- OUTSIDE RECORDS SUMMARY | 2025-08-15 15:25 | XMS_ITS | Encounter Summary ---
Author Organization [employer] ([place], [place], [place], [place]) Address [address] [place] [address] Care Team Providers Care Automotive Wholesale Parts Advisor Name Role Phone Unavailable Primary Care Provider Unavailabl e Encounter Details Date Type Department Care Team (Late st Contact Info) Description 05/10/2020 Transcribed Document [facility] [place] [facility] [address] ProviderDarrell MD [address] [place] [address] Social History Tobacco Use Types Packs/Day Years [...] sedation, driving problem, or GI problem. Her custodial laborer recently placed her on Cymbalta 30 mg [...] and walking. 8. I agree with her custodial laborer to continue with Cymbalta 30 mg at [...] visit and the patient has been afebrile. /[id number] Pepe Krishna MD, BLAKE Pain Certified KR/AQ / EN / MODL CC: Janes Mason MD Electronically signed by [facility], [facility] Conversion Retail And Restaurant Cerner at 02/18/2023 5:04 PM CDT documented in this encounter Plan of Treatment Not on file documented as of this encounter Visit Diagnoses Not on filedocumented in this encounter
--- OUTSIDE RECORDS SUMMARY | 2025-08-15 15:25 | XMS_ITS | Encounter Summary ---
Author Organization [employer] ([place], [place], [place], [place]) Address [address] [place] [address] Care Team Providers Care Motor Route Carrier Name Role Phone Unavailable Primary Care Provider Unavailabl e Encounter Details Date Type Department Care Team (Late st Contact Info) Description 06/27/2020 Transcribed Document [facility] [place] Family [place] [facility] [place] [address] ProviderDarrell MD [address] [place] [address] Social History Tobacco Use Types Packs/Day Years [...] possible. The patient is also taking her [place] 3 times daily as needed and her [...] dose. She has voiced understanding. 3. Continue [place] 7.5/325 mg 3 times daily as needed. [...] visit and the patient has been afebrile. /[id number] DICTATED BY: Jazz Orta APRN for Pepe Krishna MD, BLAKE Pain Certified Pepe Krishna MD, BLAKE Pain Certified PITA/AQ / PITA / MODL CC: REYES (REF) MD AUDIE documented in this encounter Plan of Treatment Not on file documented as of this encounter Visit Diagnoses Not on filedocumented in this encounter
--- OUTSIDE RECORDS SUMMARY | 2025-08-15 15:25 | XMS_ITS | Encounter Summary ---
Author Organization [employer] ([place], [place], [place], [place]) Address [address] [place] [address] Care Team Providers Care Senior Patient Account Representative Name Role Phone Unavailable Primary Care Provider Unavailabl e Encounter Details Date Type Department Care Team (Late st Contact Info) Description 10/04/2020 Transcribed Document [facility] [place] [facility] [place] [address] ProviderDarrell MD [address] [place] [address] Social History Tobacco Use Types Packs/Day Years Used Date Smoking Tobacco: Never Assessed Comments Unknown Sex and Gender Information Value Date Recorded Sex Assigned at Not on file Legal Sex Female 6:16 PM CDT Gender Identity Not on file Sexual Orientation Not on file documented as of this encounter Miscellaneous Notes * [employer] Conversion Note - Historical ProviderMD - 10/04/2020 4:06 PM DREDGE MECHANIC DATE OF ADMISSION: 10/04/2020 HISTORY OF PRESENT [...] is also using Cymbalta and taking her [place] 3 times daily. She says that she is also using Robaxin as needed and taking her Lyrica 3 times daily. The patient says that she really needs to have the Gall[place]in dosage 4 times daily. She says that [...] not to take the Lyrica and the Gall[place]in at the same time but alternate those. [...] visit and the patient has been afebrile. /[id number] FLOYD Mullins/MIRIAN / PITA / MODL CC: REYES (REF) MD AUDIE documented in this encounter Plan of Treatment Not on file documented as of this encounter Visit Diagnoses Not on filedocumented in this encounter
--- OUTSIDE RECORDS SUMMARY | 2025-08-15 15:25 | XMS_ITS | Encounter Summary ---
Author Organization [employer] ([place], [place], [place], [place]) Address [address] [place] [address] Care Team Providers Care Blanket Folder Name Role Phone Unavailable Primary Care Provider Unavailabl e Encounter Details Date Type Department Care Team (Late st Contact Info) Description 03/14/2020 Transcribed Document [facility] [place] [facility] [place] [address] ProviderDarrell MD [address] [place] [address] Social History Tobacco Use Types Packs/Day Years [...] also trying to wean herself off her [place] by doing one-half tablet at a time. [...] it. 2. We are going to continue [place] 7.5/325 mg three times daily as needed. [...] medications for this patient's treatment plan today. /[id number] Jazz FLOYD Church/MIRIAN / PITA / MODL CC: FLOYD Lazo MD Electronically signed by [facility], [facility] Conversion Systems Management Consultant Cerner at 02/18/2023 5:02 PM CDT documented in this encounter Plan of Treatment Not on file documented as of this encounter Visit Diagnoses Not on filedocumented in this encounter
--- OUTSIDE RECORDS SUMMARY | 2025-08-15 15:25 | XMS_ITS | Clinical Summary ---
Author Organization [facility] Address [address] [id number] Care Team Providers Care Fisher Spear Name Role Phone Janes Mason MD Primary Care Provider [phone] Allergies Active Allergy Reactions Criticality Noted Date Comments Acetaminophen GI Intolerance 12/01/2015 Acetaminophen-Codeine Unknown - Low Severity Codeine GI Intolerance 10/13/2021 Penicillins Other (See Comments) ,Unknown - Low Severity 11/13/2012 Medications pregabalin (Lyrica) 100 MG capsule Every 8 (Eight) Hours. Active HYDROcodone-acet aminophen ([place]) 5-325 MG per tablet [place] 5 mg-325 mg tablet Take 1 tablet [...] Payer (Ef fective 2019-Present) Name:Darshana Barr Member ID:[id number] Relation to Subscriber:Self Name:Darshana Barr Subscriber ID:[id number] Payer ID:[id number] Group ID:Not on file Type:Not on file Address: [address] Care Teams Fisher Spear Relationship Specialty Start Date End Date Janes Mason MD [address] [place] [address] PCP - General Family Medicine 07/11/21
--- OUTSIDE RECORDS SUMMARY | 2025-08-15 15:25 | XMS_ITS | Encounter Summary ---
Author Organization [employer] ([place], [place], [place], [place]) Address [address] [place] [address] Care Team Providers Care Horse And Wagon Driver Name Role Phone Unavailable Primary Care Provider Unavailabl e Encounter Details Date Type Department Care Team (Late st Contact Info) Description 09/02/2020 Transcribed Document [facility] [place] Family Medicine [address] [place] [address] ProviderDarrell MD [address] [place] [address] Social History Tobacco Use Types Packs/Day Years [...] help with the pain. She is taking [place] 3 times daily as needed and Lyrica [...] with alcohol, or self-escalate it. 2. Continue [place] 7.5/325 mg 3 times daily as needed. [...] visit and the patient has been afebrile. /[id number] FLOYD Mullins/MIRIAN / PITA / MODL CC: Janes Mason MD documented in this encounter Plan of Treatment Not on file documented as of this encounter Visit Diagnoses Not on filedocumented in this encounter
--- OUTSIDE RECORDS SUMMARY | 2025-08-15 15:25 | XMS_ITS | Encounter Summary ---
Author Organization [employer] ([place], [place], [place], [place]) Address [address] [place] [address] Care Team Providers Care Shank Faker Name Role Phone Unavailable Primary Care Provider Unavailabl e Encounter Details Date Type Department Care Team (Late st Contact Info) Description 10/17/2020 Transcribed Document [facility] [place] Medicine [facility] [place] [address] ProviderDarrell MD [address] [place] [address] Social History Tobacco Use Types Packs/Day Years Used Date Smoking Tobacco: Never Assessed Comments Unknown Sex and Gender Information Value Date Recorded Sex Assigned at Not on file Legal Sex Female 6:16 PM CDT Gender Identity Not on file Sexual Orientation Not on file documented as of this encounter Miscellaneous Notes * [employer]ner Conversion Note - Historical ProviderMD - 10/17/2020 8:05 PM SERVICE DESK LEAD Patient: FERMIN BARR Age: 55 Years Sex: [...]
--- OUTSIDE RECORDS SUMMARY | 2025-08-15 15:25 | XMS_ITS | Encounter Summary ---
Author Organization [employer] ([place], [place], [place], [place]) Address [address] [place] [address] Care Team Providers Care Refueling Ramp Supervisor Name Role Phone Unavailable Primary Care Provider Unavailabl e Encounter Details Date Type Department Care Team (Late st Contact Info) Description 10/17/2020 Transcribed Document [facility] [place] [facility] [place] [address] ProviderDarrell MD [address] [place] [address] Social History Tobacco Use Types Packs/Day Years Used Date Smoking Tobacco: Never Assessed Comments Unknown Sex and Gender Information Value Date Recorded Sex Assigned at Not on file Legal Sex Female 6:16 PM CDT Gender Identity Not on file Sexual Orientation Not on file documented as of this encounter Miscellaneous Notes * [employer] Conversion Note - Historical ProviderMD - 10/17/2020 4:38 PM REVENUE INTEGRITY ANALYST Broset Violence Assessment Entered On: 10/17/2020 22:43 [...]
--- OUTSIDE RECORDS SUMMARY | 2025-08-15 15:25 | XMS_ITS | Encounter Summary ---
Author Organization [employer] ([place], [place], [place], [place]) Address [address] [place] [address] Care Team Providers Care Security Nurse Name Role Phone Unavailable Primary Care Provider Unavailabl e Encounter Details Date Type Department Care Team (Late st Contact Info) Description 10/17/2020 Transcribed Document [facility] [place] [facility] [place] [address] ProviderDarrell MD [address] [place] [address] Social History Tobacco Use Types Packs/Day Years Used Date Smoking Tobacco: Never Assessed Comments Unknown Sex and Gender Information Value Date Recorded Sex Assigned at Not on file Legal Sex Female 6:16 PM CDT Gender Identity Not on file Sexual Orientation Not on file documented as of this encounter Miscellaneous Notes * [employer] Conversion Note - Historical ProviderMD - 10/17/2020 4:38 PM SAMPLE BOOK MAKER ED Assessment Entered On: 10/17/2020 22:43 EST [...] Communication Barrier : None Primary Language : Brazilian Any Spiritual/Cultural Needs or Requests : No [...] Rhythm : Regular Nail Bed Color : [place] Chest Pain : Yes Neck Vein Distention [...] Jeannette A, RN - 10/17/2020 22:40 EST Electronically signed by [employer], [place] Conversion Ophthalmic Medical Technician Cerner at 02/18/2023 5:10 PM CDT documented in this encounter Plan of Treatment Not on file documented as of this encounter Visit Diagnoses Not on filedocumented in this encounter
--- OUTSIDE RECORDS SUMMARY | 2025-08-15 15:25 | XMS_ITS | Encounter Summary ---
Author Organization [employer] ([place], [place], [place], [place]) Address [address] [place] [address] Care Team Providers Care Plate Finisher Name Role Phone Unavailable Primary Care Provider Unavailabl e Encounter Details Date Type Department Care Team (Late st Contact Info) Description 10/17/2020 Transcribed Document [facility] Family Medicine [facility] [place] [address] ProviderDarrell MD [address] [place] [address] Social History Tobacco Use Types Packs/Day Years Used Date Smoking Tobacco: Never Assessed Comments Unknown Sex and Gender Information Value Date Recorded Sex Assigned at Not on file Legal Sex Female 6:16 PM CDT Gender Identity Not on file Sexual Orientation Not on file documented as of this encounter Miscellaneous Notes * [employer] Conversion Note - Historical ProviderMD - 10/17/2020 4:38 PM TELECOMMUNICATIONS PROJECT MANAGER [place] Suicide Severity Rating Scale (C-SSRS) Entered On: 10/17/2020 22:43 EST Performed On: 10/17/2020 22:40 EST by Jeannette Fuller RN Humphreys Suicide Severity Rating Scale (C-SSRS) CSSRS Past [...]
--- OUTSIDE RECORDS SUMMARY | 2025-08-15 15:25 | XMS_ITS | Encounter Summary ---
Author Organization [employer] ([place], [place], [place], [place]) Address [address] [place] [address] Care Team Providers Care Water Engineer Name Role Phone Unavailable Primary Care Provider Unavailabl e Encounter Details Date Type Department Care Team (Late st Contact Info) Description 10/17/2020 Transcribed Document [facility] [place] [facility] [place] [address] ProviderDarrell MD [address] [place], [place] [address]64[address] Social History Tobacco Use Types Packs/Day Years Used Date Smoking Tobacco: Never Assessed Comments Unknown Sex and Gender Information Value Date Recorded Sex Assigned at Not on file Legal Sex Female 6:16 PM CDT Gender Identity Not on file Sexual Orientation Not on file documented as of this encounter Miscellaneous Notes * [employer] Conversion Note - Historical ProviderMD - 10/17/2020 11:15 PM X RAY OPERATOR ED Discharge Vital Signs Entered On: 10/17/2020 23:15 EST Performed On: 10/17/2020 23:15 EST by Jeannette Fuller RN ED Discharge Vital Signs Peripheral Pulse Rate : 82 bpm Respiratory Rate : 20 Breaths/Min Systolic Blood Pressure : 121 mmHg Diastolic Blood Pressure : 67 mmHg Oxygen Saturation : 98 % Jeannette Fuller RN - 10/17/2020 23:15 EST Electronically signed by [employer] [facility] Conversion Soundscriber Mechanic [employer] at 02/18/2023 4:50 PM CDT documented in this encounter Plan of Treatment Not on file documented as of this encounter Visit Diagnoses Not on filedocumented in this encounter
--- OUTSIDE RECORDS SUMMARY | 2025-08-15 15:25 | XMS_ITS | Encounter Summary ---
Author Organization [employer] ([place], [place], [place], [place]) Address [address] [place] [address] Care Team Providers Care Corrugator Operator Helper Name Role Phone Unavailable Primary Care Provider Unavailabl e Encounter Details Date Type Department Care Team (Late st Contact Info) Description 10/17/2020 Transcribed Document [facility] [place] [facility] [place] [address] ProviderDarrell MD [address] [place], [place] [address]28[address] Social History Tobacco Use Types Packs/Day Years Used Date Smoking Tobacco: Never Assessed Comments Unknown Sex and Gender Information Value Date Recorded Sex Assigned at Not on file Legal Sex Female 6:16 PM CDT Gender Identity Not on file Sexual Orientation Not on file documented as of this encounter Miscellaneous Notes * [employer] Conversion Note - Historical ProviderMD - 10/17/2020 8:38 PM KILN REPAIRER ED Event Note Entered On: 10/17/2020 20:40 [...]
--- OUTSIDE RECORDS SUMMARY | 2025-08-15 15:25 | XMS_ITS | Continuity of Care Document ---
Author Organization [place] [facility] & [place] [facility] Address [address] [place] [address] Care Team Providers Care Press Operator Assistant Name Role Phone REYES BRONSON Primary Care Provider Assessment No assessment recorded. Plan of Treatment Reminders Order Date Submit Date Provider Last Modified By Organization Details Last Modified Time Details Appointments Establish ed Visit 15 min 2024 11:00A M AVRIL CHAIREZ NP Not available Not available Not available Lab drug screen, urine - [place] LC 210059 Urine or blood. If unable to obtain specimen, they will need to drink fluids and wait three hours. Do not let them leave the facility. If still unable to get specimen after 3 hours call the office or it's a failed UDS. 2024 025 [facility] (Registration ), [address], [place], [address], 07/16/2025 10:40:38 pregabali n, urine 2024 025 [facility] (Registration ), [address], [place], [address], 06/29/2025 12:31:43 gabapenti n, QL, urine 2024 025 [facility] (Registration ), [address], [place], [address], 06/29/2025 12:31:43 Referral None recorded. Procedures None recorded. Surgeries None recorded. Imaging None recorded. Medication Orders hydrocodo ne 7.5 mg-acetam inophen 325 mg tablet 2024 025 [facility] [id number], [address] [place], [address], 06/29/2025 12:21:21 methocarb jayne 500 mg tablet 2024 025 [facility] [id number], [address] [place], [address], 06/29/2025 12:21:15 meloxicam 15 mg tablet 2024 025 [facility] [id number], [address] , [place], [address], 06/29/2025 12:21:18 Patient TargetsNo targets recorded. Patient InstructionsNo instructions recorded. Reason for Referral None Reported. Results Created Date Observation Date Name Description Value Unit Range Abnormal Flag Note LastModifiedBy Organization Detail LastModifiedTime Result Notes None recorded. Medical Equipment None Reported. Allergies Allergen ID Allergen Name Allergen Category Reaction Reaction Severity Criticality Documentation Date Start Date Code Code System Note Provider Name and Address Organization Details Recorded Time Product containin g penicilli n (product) medicatio n Not available Not available unabletoasse 12/21/2024 26676 5531 [facility] - [place] & [place] 10:35:50 Medications Name Sig Start Date Stop Date Status Note LastModified by Organization Details LastModified Time atorvastati n 40 mg tablet active Not Available Not Available Not Available methocarbam ol 500 mg tablet Take 2 tablets 4 times a day by oral route for 30 days. 2024 active Not Available Not Available Not Avai lable doxycycline hyclate 100 mg capsule TAKE 1 CAPSULE BY MOUTH TWICE DAILY FOR 10 DAYS 12/21 completed Not Available Not Available Not Available ipratropium 0.5 mg-albutero l 3 mg (2.5 mg base)/3 mL nebulizatio n soln USE 3 ML IN NEBULIZER EVERY 6 HOURS NEEDED FOR WHEEZING active Not Available Not Available No t Available clindamycin HCl 300 mg capsule TAKE 1 CAPSULE BY MOUTH EVERY 6 HOURS 06/29 completed Not Available Not Available Not Available azithromyci n 250 mg tablet TAKE [...] completed Not Available Not Available Not Available Celebrex 200 mg capsule Take 1 capsule twice a day by oral route. 06/29 completed Not Available Not Available Not Available [...] active Not Available Not Available Not Twin soria guaifenesin ER 600 mg tablet, extended release 12 hr TAKE TWO TABLETS BY MOUTH TWICE DAILY NEEDED FOR congestio n active Not Available Not Available No t Available Narcan 4 mg/actuatio n nasal spray Take 1 spray by nasal route. 2024 active Not Available Not Available Not Twin soria Fasenra Pen monthly active Not Available Not Available Not Available Breztri Aerosphere 160 mcg-9mcg-4. 8mcg/actuat ion HFA [...] Arterial blood by Pulse oximetry Heart rate Pain severity - 0-10 verbal numeric rating [Score] - Reported Respiratory rate Systolic And Diastolic Provider Name and Address Organization Details Last Updated DateTime 5 97.2 [degF] 97 % 97 % 84 /min 6 16 /min 132/60 mm[Hg] Malgorzata Joyce [place] - [facility] - [place] & [place] 11:18:45 Social History None recorded. Functional Status None recorded. Mental Status None recorded. Family History Nothing Reported. Medical History No medical history recorded. Gynecological HistoryNo gynecological history recorded. Obstetrics History GPAL:G 0 P 0 0 0 0 Past Encounters Encounter ID Performer Location Encounter Start Date Encounter Closed Date Diagnosis/Indication Diagnosis SNOMED-CT Code Diagnosis ICD10 Code Diagnosis IMO Codes Diagnosis Note [id number] MD CLARE Alcantara [facility] [address] [address] 06/29/2025 10:56:31 06/29/2025 11:39:18 Cervical radiculopathy 99918622 M54.12 Cervical spondylosis 387 142647 M47.812 Chronic neck pain 749738 1300 107 M54.2 Lumbar radiculopathy 128 267465 M54.16 History of cervical spine fusion 1110995617 101 Z98.1 661361 Health Concerns Section Related Observation LastModified by Organization Detai ls LastModified Time None Recorded Concern Status LastModified by Organization Details LastModified Time None Recorded Payers Encounter Date Sequence Insurance Name Policy Number Policy Esteban Covered Member ID Esteban Member ID Guarantor Name 06/29/2025 1 [place] Darshana Barr [id number] Darshana Barr 06/29/2025 2 [place] [facility] [place] - [employer] 111 Darshana Momo [id number] Darshana Barr Notes Date Note Type Note Provider Name and Address Organization Details Recorded Time 06/29/2025 text/html ROS as noted in the HPI 59 yo female in for f/u for neck and left shoulder pain. Pain is rated at a 6/10 and has been a 7/10 in the last month. Pain is constant, dull, burning and aching. Pain radiates down left shoulder and causes weakness. Does not cause bowel or bladder loss. Currently taking [place] 7.5/325 mg TID, meloxicam 15 mg BID and Lyrica 50 mg BID prn. She has had a cervical fusion and constant radicular pain down the L arm. She has been taking methocarbamol and would like a rx for it. AVRIL CHAIREZ, RADHA [address] [facility] , [place], [address], [facility] - [place] & [place] 06/29/2025 12:21:23 OBGyn Episode No OBEpisode recorded.
--- OUTSIDE RECORDS SUMMARY | 2025-08-15 15:25 | XMS_ITS | Encounter Summary ---
Author Organization [employer] ([place], [place], [place], [place]) Address [address] [place] [address] Care Team Providers Care Crt Name Role Phone Unavailable Primary Care Provider Unavailabl e Encounter Details Date Type Department Care Team (Late st Contact Info) Description 10/17/2020 Transcribed Document [facility] Family Medicine [facility] [address] ProviderDarrell MD [address] [place] [address] Social History Tobacco Use Types Packs/Day Years Used Date Smoking Tobacco: Never Assessed Comments Unknown Sex and Gender Information Value Date Recorded Sex Assigned at Not on file Legal Sex Female 6:16 PM CDT Gender Identity Not on file Sexual Orientation Not on file documented as of this encounter Miscellaneous Notes * Cerner Conversion Note - Historical ProviderMD - 10/17/2020 8:29 PM INTERMEDIATE MANAGER Vital Signs ED Entered On: 10/17/2020 20:29 [...] 10/17/2020 20:29 EST Electronically signed by [facility] Conversion Road Mender Cerner at 02/18/2023 4:53 PM CDT documented in this encounter Plan of Treatment Not on file documented as of this encounter Visit Diagnoses Not on filedocumented in this encounter
--- OUTSIDE RECORDS SUMMARY | 2025-08-15 15:26 | XMS_ITS | Encounter Summary ---
Author Organization [employer] ([place], [place], [place], [place]) Address [address] [place] [address] Care Team Providers Care Product Development Chemist Name Role Phone Unavailable Primary Care Provider Unavailabl e Encounter Details Date Type Department Care Team (Late st Contact Info) Description 01/18/2020 Transcribed Document [facility] [place] [address] [place] [address] ProviderDarrell MD [address] [place] [address] Social History Tobacco Use Types Packs/Day Years [...] her Lyrica 3 times daily and her [place] 3 times daily as needed. The patient says that the use of the medication makes her more functional. She denies any adverse effects including toxic effect, sedation, driving problems, or GI problems. The patient says she did go to the Rheumatology appointment and had lots of blood work done, but has not gotten the results yet and has a followup with the spot welder body assembly in February. REVIEW OF SYSTEMS: The patient [...] 100 mg 3 times daily. 3. Continue Ros[place] 7.5/325 mg 3 times daily as needed. [...] medications for this patient's treatment plan today. /[id number] FLOYD Mullins/MIRIAN / PITA / MODL CC: MD Nneka Alcantar APRN Electronically signed by [facility] Conversion Ladies' Locker Room Attendant Cerner at 02/18/2023 4:48 PM CDT documented in this encounter Plan of Treatment Not on file documented as of this encounter Visit Diagnoses Not on filedocumented in this encounter
--- OUTSIDE RECORDS SUMMARY | 2025-08-15 15:26 | XMS_ITS | Encounter Summary ---
Author Organization [employer] ([place], [place], [place], [place]) Address [address] [place] [address] Care Team Providers Care Gag Writer Name Role Phone Unavailable Primary Care Provider Unavailabl e Encounter Details Date Type Department Care Team (Late st Contact Info) Description 11/10/2019 Transcribed Document [facility] Family Medicine [address] [place] [address] ProviderDarrell MD [address] [place] [address] Social History Tobacco Use Types Packs/Day Years Used Date Smoking Tobacco: Never Assessed Comments Unknown Sex and Gender Information Value Date Recorded Sex Assigned at Not on file Legal Sex Female 6:16 PM CDT Gender Identity Not on file Sexual Orientation Not on file documented as of this encounter Miscellaneous Notes * Cerner Conversion Note - Historical ProviderMD - 11/10/2019 8:58 AM SOFT DRINK POWDER MIXER DATE OF ADMISSION: 11/09/2019 HISTORY OF PRESENT [...] home exercises in addition to taking her Anderson 3 times daily as needed and her Lyrica 3 times daily. The patient says that she is currently seeing a janitorial supervisor every 3 months due to some respiratory [...] if we could refer her to a marine rigger that she would like to be evaluated [...] with alcohol, or self-escalate it. 2. Continue Anderson 7.5/325 mg 3 times daily as needed. [...] medications for this patient's treatment plan today. /[id number] DICTATED BY: Jazz Orta APRN for Pepe Krishna MD, BLAKE Pain Certified Pepe Krishna MD, BLAKE Pain Certified PITA/AQ / PITA / MODL CC: FLOYD Lazo MD Electronically signed by [facility] Conversion Water Softener Service Supervisor Cerner at 02/18/2023 5:00 PM CDT documented in this encounter Plan of Treatment Not on file documented as of this encounter Visit Diagnoses Not on filedocumented in this encounter
--- OUTSIDE RECORDS SUMMARY | 2025-08-15 15:26 | XMS_ITS | Encounter Summary ---
Author Organization [email or web address] ([place], [place], [place], [place]) Address [address] [place] [address] Care Team Providers Care Wood Drilling Machine Operator Name Role Phone Unavailable Primary Care Provider Unavailabl e Encounter Details Date Type Department Care Team (Late st Contact Info) Description 01/05/2019 Transcribed Document [facility] [place] Medicine [facility] [place] [address] ProviderDarrell MD [address] [place] [address] Social History Tobacco Use Types Packs/Day Years Used Date Smoking Tobacco: Never Assessed Comments Unknown Sex and Gender Information Value Date Recorded Sex Assigned at Not on file Legal Sex Female 6:16 PM CDT Gender Identity Not on file Sexual Orientation Not on file documented as of this encounter Miscellaneous Notes * Cerner Conversion Note - Historical ProviderMD - 01/05/2019 1:45 PM CHILD ADOLESCENT CARE DATE OF ADMISSION: 01/05/2019 HISTORY OF PRESENT [...] now. The patient does continue to take [place] 7.5/325 mg 2-3 times a day as [...] 5. Long-term opioid use. PLAN: 1. Refill [place] 7.5/325 mg 2-3 times a day as [...]
--- OUTSIDE RECORDS SUMMARY | 2025-08-15 15:26 | XMS_ITS | Encounter Summary ---
Author Organization [employer] ([place], [place], [place], [place]) Address [address] [place] [address] Care Team Providers Care Forms Analysis Manager Name Role Phone Unavailable Primary Care Provider Unavailabl e Encounter Details Date Type Department Care Team (Late st Contact Info) Description 10/18/2020 Transcribed Document [facility] Family Medicine [facility] [place] [address] ProviderDarrell MD [facility] [place] [address] Social History Tobacco Use Types Packs/Day Years Used Date Smoking Tobacco: Never Assessed Comments Unknown Sex and Gender Information Value Date Recorded Sex Assigned at Not on file Legal Sex Female 6:16 PM CDT Gender Identity Not on file Sexual Orientation Not on file documented as of this encounter Miscellaneous Notes * Cerner Conversion Note - Historical ProviderMD - 10/18/2020 9:38 AM GOLF CLUB HEAD INSPECTOR AND ADJUSTER CR Chest 2 Vws Ordered: 10/17/2020 Auth (Verified) Reason for Exam: SOA 10/18/2020 08:53 10/18/2020 09:38 (QUANG OLIVA APRN) Reviewed by Provider, No further action required x1 documented in this encounter Plan of Treatment Not on file documented as of this encounter Visit Diagnoses Not on filedocumented in this encounter
--- OUTSIDE RECORDS SUMMARY | 2025-08-15 15:26 | XMS_ITS | Encounter Summary ---
Author Organization [employer] ([place], [place], [place], [place]) Address [address] [place] [address] Care Team Providers Care Hydration Plant Operator Name Role Phone Unavailable Primary Care Provider Unavailabl e Encounter Details Date Type Department Care Team (Late st Contact Info) Description 06/08/2019 Transcribed Document [facility] [place] Family Medicine [facility] [place] [address] ProviderDarrell MD [address] [place] [address] Social History Tobacco Use Types Packs/Day Years [...] Lyrica 100 mg 3 times daily and [place] 7.5/325 mg 3 times daily as needed. [...] doing well with the increase in the Mobile and it is giving her so much [...] with alcohol, or self-escalate it. 2. Continue Mobile 7.5/325 mg 3 times daily. 3. Continue [...] for pain alleviation prior to taking her Mobile, including heat, ice, relaxation, rest, and meditation. [...]
--- OUTSIDE RECORDS SUMMARY | 2025-08-15 15:26 | XMS_ITS | Encounter Summary ---
Author Organization [employer] ([place], [place], [place], [place]) Address [address] [place] [address] Care Team Providers Care Title Specialist Name Role Phone Unavailable Primary Care Provider Unavailabl e Encounter Details Date Type Department Care Team (Late st Contact Info) Description 03/17/2019 Transcribed Document [facility] [place] Family [place] [facility] [place] [address] ProviderDarrell MD [address] [place] [address] Social History Tobacco Use Types Packs/Day Years [...] 03/17/2019 17:54:53 Eastern CC1: Pepe Krishna M.D., BALKE Pain Certified CC2: Dr. Janes Mason documented in this encounter Plan of Treatment Not on file documented as of this encounter Visit Diagnoses Not on filedocumented in this encounter
--- OUTSIDE RECORDS SUMMARY | 2025-08-15 15:26 | XMS_ITS | Encounter Summary ---
Author Organization [employer] ([place], [place], [place], [place]) Address [address] [place] [address] Care Team Providers Care Primary Operator Name Role Phone Unavailable Primary Care Provider Unavailabl e Encounter Details Date Type Department Care Team (Late st Contact Info) Description 07/17/2019 Transcribed Document [facility] [place] [facility] [place] [address] ProviderDarrell MD [address] [place] [address] Social History Tobacco Use Types Packs/Day Years [...] Lyrica 100 mg 3 times daily and [place] 7.5/325 mg 3 times daily. The patient [...] with alcohol, or self-escalate it. 2. Continue [place] 7.5/325 mg 3 times daily as needed. [...]
--- OUTSIDE RECORDS SUMMARY | 2025-08-15 15:26 | XMS_ITS | Clinical Summary ---
Author Organization [employer] ([place], [place], [place], [place]) Address [address] [place] [address] Care Team Providers Care Supervisor Special Services Name Role Phone Unavailable Primary Care Provider [...] HYDROcodone-elaine taminophen (NORCO) 5-325 mg per tablet Ell[place] 5 mg-325 mg tablet Take 1 tablet [...] 10/10/2021, 10/24/2018 Insurance MEDICARE [place] [address] CROSS/BLUE SHIELD Member Subscriber Plan / Payer (Ef fective 2023-Present) Name:Darshana Barr Relation to Subscriber:Self Name:Darshana Barr Payer ID:Not on file Group ID:[id number] Type:Not on file Address: [facility] [id number] [place] [id number]
--- OUTSIDE RECORDS SUMMARY | 2025-08-15 15:26 | XMS_ITS | Encounter Summary ---
Author Organization [employer] ([place], [place], [place], [place]) Address [address] [place] [address] Care Team Providers Care Respiratory Therapist Name Role Phone Unavailable Primary Care Provider Unavailabl e Encounter Details Date Type Department Care Team (Late st Contact Info) Description 01/06/2021 Transcribed Document [facility] [address] ProviderDarrell MD [address] [place], [place] [id number] Social History Tobacco Use Types Packs/Day Years Used Date Smoking Tobacco: Never Assessed Comments Unknown Sex and Gender Information Value Date Recorded Sex Assigned at Not on file Legal Sex Female 6:16 PM CDT Gender Identity Not on file Sexual Orientation Not on file documented as of this encounter Miscellaneous Notes * Cerner Conversion Note - Historical ProviderMD - 01/06/2021 1:08 PM ACUTE CARE REGISTERED NURSE Patient Education Materials Follows: Hemorrhoids Hemorrhoids are [...] times a day. General instructions ??? Take sjih-fad-kzukdaf and prescription medicines only as told by [...] 07/30/2009 Document Revised: 10/29/2019 Document Reviewed: 03/12/2019 [employer] Patient Education ? 2020 [employer] Instructions for after EGD with Dilation [...] activities are safe for you. ??? Take qbbw-wwp-lxhpikp and prescription medicines only as told by [...] 01/27/2002 Document Revised: 10/24/2018 Document Reviewed: 06/06/2018 [employer] Patient Education ? 2020 [employer]. documented in this encounter Plan of Treatment Not on file documented as of this encounter Visit Diagnoses Not on filedocumented in this encounter
--- OUTSIDE RECORDS SUMMARY | 2025-08-15 15:26 | XMS_ITS | Encounter Summary ---
Author Organization [employer] ([place], [place], [place], [place]) Address [address] [place] [address] Care Team Providers Care Dental Assistant Medical Assistant Name Role Phone Unavailable Primary Care Provider Unavailabl e Encounter Details Date Type Department Care Team (Late st Contact Info) Description 11/24/2018 Transcribed Document [facility] [facility] [place] [address] ProviderDarrell MD [address] [place] [address] Social History Tobacco Use Types Packs/Day Years Used Date Smoking Tobacco: Never Assessed Comments Unknown Sex and Gender Information Value Date Recorded Sex Assigned at Not on file Legal Sex Female 6:16 PM CDT Gender Identity Not on file Sexual Orientation Not on file documented as of this encounter Miscellaneous Notes * Cerner Conversion Note - Historical MD Mark - 11/24/2018 3:56 PM JAVA SOLUTIONS ARCHITECT DATE OF ADMISSION: 11/24/2018 HISTORY OF PRESENT [...] it. The patient does continue to take [place] 7.5/325 mg 2-3 times a day as [...] radiculopathy. 4. Cervical spondylosis. PLAN: 1. Refill [place] 7.5/325 mg 2-3 times a day as [...]
--- OUTSIDE RECORDS SUMMARY | 2025-08-15 15:26 | XMS_ITS | Encounter Summary ---
Author Organization [employer] ([place], [place], [place], [place]) Address [address] [place] [address] Care Team Providers Care Claim Administrator Name Role Phone Unavailable Primary Care Provider Unavailabl e Encounter Details Date Type Department Care Team (Late st Contact Info) Description 01/04/2021 Transcribed Document [facility] Family [place] [facility] [place] [address] ProviderDarrell MD [address] [place] [id number] Social History Tobacco Use Types Packs/Day Years Used Date Smoking Tobacco: Never Assessed Comments Unknown Sex and Gender Information Value Date Recorded Sex Assigned at Not on file Legal Sex Female 6:16 PM CDT Gender Identity Not on file Sexual Orientation Not on file documented as of this encounter Miscellaneous Notes * Cerner Conversion Note - Historical ProviderMD - 01/04/2021 2:42 PM TRAINING SYSTEMS OFFICER DATE OF SERVICE: 12/21/2020 Height 64 inches [...] was normal. 4. Clinical correlation is suggested. /[id number] Della Ortiz MD HE/AQ / XIAO / MODL /[id number] Electronically signed by Paul Grubbs Conversion Corporate Communications Specialist Cerner at 02/18/2023 4:53 PM CDT documented in this encounter Plan of Treatment Not on file documented as of this encounter Visit Diagnoses Not on filedocumented in this encounter
--- OUTSIDE RECORDS SUMMARY | 2025-08-15 15:26 | XMS_ITS | Encounter Summary ---
Author Organization [employer] ([place], [place], [place], [place]) Address [address] [place] [address] Care Team Providers Care Entry Level Receptionist Name Role Phone Unavailable Primary Care Provider Unavailabl e Encounter Details Date Type Department Care Team (Late st Contact Info) Description 01/06/2021 Transcribed Document [facility] Family Medicine [facility] [place] [address] ProviderDarrell MD [address] [place], [place] [id number] Social History Tobacco Use Types Packs/Day Years Used Date Smoking Tobacco: Never Assessed Comments Unknown Sex and Gender Information Value Date Recorded Sex Assigned at Not on file Legal Sex Female 6:16 PM CDT Gender Identity Not on file Sexual Orientation Not on file documented as of this encounter Miscellaneous Notes * Cerner Conversion Note - Historical ProviderMD - 01/06/2021 12:30 PM AUTOMOBILE RADIO REPAIRER [facility] [employer] PreOp Summary Primary Physician: SEA OLSON MD Finalized Date/Time: 01/06/21 12:22:57 Pt. Name: FERMIN DEVRIES/Sex: 1965 Female Med Rec #: [id number] Physician: SEA OLSON MD Financial #: [id number] Pt. Type: O Room/Bed: END/ Admit/Disch: 01/06/21 11:16:00 - Institution: [facility] PreOp Case Times Entry 1 [...]
--- OUTSIDE RECORDS SUMMARY | 2025-08-15 15:26 | XMS_ITS | Encounter Summary ---
Author Organization [employer] ([place], [place], [place], [place]) Address [address] [place] [address] Care Team Providers Care Marine Plumber Name Role Phone Unavailable Primary Care Provider Unavailabl e Encounter Details Date Type Department Care Team (Late st Contact Info) Description 01/06/2021 Transcribed Document [facility] [place] [facility] [place] [address] ProviderDarrell MD [address] [place] [address] [phone] Social History Tobacco Use Types Packs/Day Years Used Date Smoking Tobacco: Never Assessed Comments Unknown Sex and Gender Information Value Date Recorded Sex Assigned at Not on file Legal Sex Female 6:16 PM CDT Gender Identity Not on file Sexual Orientation Not on file documented as of this encounter Miscellaneous Notes * Cerner Conversion Note - Darrell Flores MD - 01/06/2021 1:10 PM PANELBEATER Patient: FERMIN BARR Age: 55 Years Sex: [...] 12:57:00 (01/06/21 13:05:13) Electronically signed by [facility] Conversion Box Maker Paperboard Cerner at 02/18/2023 4:46 PM CDT documented in this encounter Plan of Treatment Not on file documented as of this encounter Visit Diagnoses Not on filedocumented in this encounter
--- OUTSIDE RECORDS SUMMARY | 2025-08-15 15:26 | XMS_ITS | Encounter Summary ---
Author Organization [employer] ([place], [place], [place], [place]) Address [address] [place] [address] Care Team Providers Care Medical Laboratory Scientist Name Role Phone Unavailable Primary Care Provider Unavailabl e Encounter Details Date Type Department Care Team (Late st Contact Info) Description 10/17/2020 Transcribed Document [facility] [place] [address] ProviderDarrell MD [address] [place] [phone] Social History Tobacco Use Types Packs/Day Years Used Date Smoking Tobacco: Never Assessed Comments Unknown Sex and Gender Information Value Date Recorded Sex Assigned at Not on file Legal Sex Female 6:16 PM CDT Gender Identity Not on file Sexual Orientation Not on file documented as of this encounter Miscellaneous Notes * Cerner Conversion Note - Historical ProviderMD - 10/17/2020 10:52 PM METAL DIE FINISHER Patient: FERMIN BARR Age: 55 years Sex: Female : 1965 Associated Diagnoses: Elevated WBCs; PNA (pneumonia) Author: HAYLEE YOUNGBLOOD PA-C Basic Information Additional information: Chief Complaint from Nursing Triage Note : Chief Complaint 10/17/2020 17:31 EST Chief Complaint Hospitalized at [facility] last week c sepsis/PNA. Saw Maximiliano Alicia [...] Patient says that after being discharged from [facility] last week due to sepsis and [...] to see if she could come to [place] to have her blood work done in [...] 30 Tab, 2 Refill(s) Documented Medications Documented [place] 7.5 mg-325 mg oral tablet: 1 Tab, [...] EST Height Source Stated Height Entry Format Hamer Height/Length, MACEDONIAN (ft) 5 ft Height/Length MACEDONIAN 4 Inch CLINICALHEIGHT 162.56 cm Imbler Body Weight 54.3 kg Weight Source, ED Critical estimated dosing weight Weight Entry Format Hamer Weight [place] lb 250 lb CLINICALWEIGHT 113.64 kg Body [...] Triage: ED C-SSRS: ED Clinical Reconciliation: ED stain sprayer: EKG: Lactic Acid Level with Reflex if [...] 11.7 % LOW Lymph # 2.28 x10(3)/uL Posey % 4.3 % Posey # 0.83 K/uL Eos % 0.1 % [...]
--- OUTSIDE RECORDS SUMMARY | 2025-08-15 15:26 | XMS_ITS | Encounter Summary ---
Author Organization [employer] ([place], [place], [place], [place]) Address [address] [place] [address] Care Team Providers Care Stock Control Clerk Name Role Phone Unavailable Primary Care Provider Unavailabl e Encounter Details Date Type Department Care Team (Late st Contact Info) Description 02/09/[address] [facility] [place] [facility] [place] [address] ProviderDarrell MD [address] [place] [phone] Social History Tobacco Use Types Packs/Day Years [...] patient states that she did see her credit officer and has some of her COPD medications [...] filled. The patient does continue to take [place] 7.5/325 mg 2-3 times a day as [...] 5. Long-term opioid use. PLAN: 1. Refill [place] 7.5/325 mg 2-3 times a day as [...] Mason Electronically signed by [facility] Conversion Window Shade Ring Coverer Cerner at 02/18/2023 4:54 PM CDT documented in this encounter Plan of Treatment Not on file documented as of this encounter Visit Diagnoses Not on filedocumented in this encounter
--- OUTSIDE RECORDS SUMMARY | 2025-08-15 15:26 | XMS_ITS | Clinical Summary ---
Author Organization [facility] Address [address] [place] [address] Care Team Providers Care Conference Planner Name Role Phone Janes Mason MD Primary Care Provider [phone] Allergies Active Allergy Reactions Criticality Noted Date [...] to complete this topic Insurance Care Teams Conference Planner Relationship Specialty Start Date End Date Janes Mason MD [address] [place] [address] PCP - General Family Medicine 11/13/12
--- OUTSIDE RECORDS SUMMARY | 2025-08-15 15:26 | XMS_ITS | Encounter Summary ---
Author Organization [employer] ([place], [place], [place], [place]) Address [address] [place] [address] Care Team Providers Care Neurosurgeon Name Role Phone Unavailable Primary Care Provider Unavailabl e Encounter Details Date Type Department Care Team (Late st Contact Info) Description 01/04/2021 Transcribed Document [facility] [place] [facility] [address] ProviderDarrell MD [address] [place] [address] [phone] Social History Tobacco Use Types Packs/Day Years Used Date Smoking Tobacco: Never Assessed Comments Unknown Sex and Gender Information Value Date Recorded Sex Assigned at Not on file Legal Sex Female 6:16 PM CDT Gender Identity Not on file Sexual Orientation Not on file documented as of this encounter Miscellaneous Notes * Cerner Conversion Note - Historical ProviderMD - 01/04/2021 2:39 PM AGED OR DISABLED CARE WORKER DATE OF SERVICE: 12/21/2020 The patient's height [...] for oxygen therapy. Clinical correlation is suggested. /[id number] MD XIAO Roberson/MIRIAN / XIAO / MISAEL /[id number] Electronically signed by Interface, [facility] Conversion Machine Stapler Cerner at 02/18/2023 5:14 PM CDT documented in this encounter Plan of Treatment Not on file documented as of this encounter Visit Diagnoses Not on filedocumented in this encounter
--- OUTSIDE RECORDS SUMMARY | 2025-08-15 15:26 | XMS_ITS | Encounter Summary ---
Author Organization [employer] ([place], [place], [place], [place]) Address [address] [place] [address] Care Team Providers Care Efficiency Manager Name Role Phone Unavailable Primary Care Provider Unavailabl e Encounter Details Date Type Department Care Team (Late st Contact Info) Description 10/17/2020 Transcribed Document [facility] [place] [facility] [place] [address] ProviderDarrell MD [address] [place] [address] [phone] Social History Tobacco Use Types Packs/Day Years Used Date Smoking Tobacco: Never Assessed Comments Unknown Sex and Gender Information Value Date Recorded Sex Assigned at Not on file Legal Sex Female 6:16 PM CDT Gender Identity Not on file Sexual Orientation Not on file documented as of this encounter Miscellaneous Notes * Cerner Conversion Note - Historical ProviderMD - 10/17/2020 4:38 PM METER 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 Saw Gillian Alicia @ Dr. Cheek's office 10/13, had elevated WBCs. Temp today 98.6 - states baseline is 97.1 and she was advised to come to ED. Triage Date/Time : 10/17/2020 17:31 EST Calli Cruz RN - 10/17/2020 17:31 EST DCP GENERIC CODE Tracking Acuity : 3 - Urgent Tracking Group : [facility] ED Calli Cruz RN - 10/17/2020 17:31 [...] 10/17/2020 17:34:28 EST) Problems(Active) Anxiety (SNOMED CT :3352619457 ) Name of Problem: Anxiety ; Recorder: Tracey Mathews RN; Confirmation: Confirmed ; Classification: Medical ; Code: [id number] ; Contributor System: [employer] ; Last Updated: 11/06/2016 11:42 EST ; Life Cycle Date: 11/06/2016 ; Life Cycle Status: Active ; Vocabulary: SNOMED CT Arthritis (SNOMED CT :6702934 ) Name of Problem: Arthritis ; Recorder: JOSÉ MIGUEL BRADSHAW RN; Confirmation: Confirmed ; Classification: Medical ; Code: [id number] ; Contributor System: [employer]rongChart ; Last Updated: 09/23/2018 15:39 EST ; Life Cycle Date: 06/18/2018 ; Life Cycle Status: Active ; Vocabulary: SNOMED CT Asthma (SNOMED CT :925974400 ) Name of Problem: Asthma ; Recorder: Tracey Mathews RN; Confirmation: Confirmed ; Classification: Medical ; Code: 790858259 ; Contributor System: PowerChart ; Last Updated: 11/06/2016 11:28 EST ; Life Cycle Date: 11/06/2016 ; Life Cycle Status: Active ; Vocabulary: SNOMED CT Asthma (SNOMED CT :716471165 ) Name of Problem: Asthma ; Recorder: JOSÉ MIGUEL BRADSHAW RN; Confirmation: Confirmed ; Classification: Medical ; Code: 652551317 ; Contributor System: PowerChart ; Last Updated: 06/18/2018 15:03 EDT ; Life Cycle Date: 06/18/2018 ; Life Cycle Status: Active ; Vocabulary: SNOMED CT Cardiomyopathy (SNOMED CT :468559642 ) Name of Problem: Cardiomyopathy ; Recorder: Malgorzata Pemberton RN; Confirmation: Confirmed ; Classification: Medical ; Code: 602665399 ; Contributor System: CardiostrongChart ; Last Updated: 11/07/2016 6:38 EST ; Life Cycle Date: 11/07/2016 ; Life Cycle Status: Active ; Vocabulary: SNOMED CT DDD (degenerative disc disease), cervical (SNOMED CT :826973498 ) Name of Problem: DDD (degenerative disc disease), cervical ; Recorder: Tracey Mathews RN; Confirmation: Confirmed ; Classification: Medical ; Code: 391228414 ; Contributor System: PowerChart ; Last Updated: 11/06/2016 11:41 EST ; Life Cycle Date: 11/06/2016 ; Life Cycle Status: Active ; Vocabulary: SNOMED CT Endometriosis (SNOMED CT :5396989049 ) Name of Problem: Endometriosis ; Recorder: Tracey Mathews RN; Confirmation: Confirmed ; Classification: Medical ; Code: 1554222116 ; Contributor System: PowerChart ; Last Updated: 11/06/2016 11:30 EST ; Life Cycle Date: 11/06/2016 ; Life Cycle Status: Active ; Vocabulary: SNOMED CT Fibroids (SNOMED CT :648192865 ) Name of Problem: Fibroids ; Recorder: Tracey Mathews RN; Confirmation: Confirmed ; Classification: Medical ; Code: 159704525 ; Contributor System: PowerChart ; Last Updated: 11/06/2016 11:30 EST ; Life Cycle Date: 11/06/2016 ; Life Cycle Status: Active ; Vocabulary: SNOMED CT GERD - Gastro-esophageal reflux disease (SNOMED CT :0642534584 ) Name of Problem: GERD - Gastro-esophageal reflux disease ; Recorder: Tracey Mathews RN; Confirmation: Confirmed ; Classification: Medical ; Code: 5244752950 ; Contributor System: PowerChart ; Last Updated: 11/06/2016 11:29 EST ; Life Cycle Date: 11/06/2016 ; Life Cycle Status: Active ; Vocabulary: SNOMED CT H/O: depression (SNOMED CT :118955129 ) Name of Problem: H/O: depression ; Recorder: JOSÉ MIGUEL BRADSHAW RN; Confirmation: Confirmed ; Classification: Medical ; Code: 232184496 ; Contributor System: PowerChart ; Last Updated: 06/18/2018 15:07 EDT ; Life Cycle Date: 06/18/2018 ; Life Cycle Status: Active ; Vocabulary: SNOMED CT History of obstructive sleep apnea (IMO :69408954 ) Name of Problem: History of obstructive sleep apnea ; Recorder: SYSTEM, SYSTEM; Confirmation: Confirmed ; Classification: Medical ; Code: 22293742 ; Last Updated: 06/18/2018 15:16 EDT ; Life Cycle Date: 06/18/2018 ; Life Cycle Status: Active ; Vocabulary: IMO Left carpal tunnel syndrome (SNOMED CT :6868099293 ) Name of Problem: Left carpal tunnel syndrome ; Recorder: Tracey Mathews RN; Confirmation: Confirmed ; Classification: Medical ; Code: 4826911387 ; Contributor System: PowerChart ; Last Updated: 11/06/2016 11:43 EST ; Life Cycle Date: 11/06/2016 ; Life Cycle Status: Active ; Vocabulary: SNOMED CT Migraine (SNOMED CT :86904299 ) Name of Problem: Migraine ; Recorder: Tracey Mathews RN; Confirmation: Confirmed ; Classification: Medical ; Code: 49744427 ; Contributor System: PowerChart ; Last Updated: 11/06/2016 11:30 EST ; Life Cycle Date: 11/06/2016 ; Life Cycle Status: Active ; Vocabulary: SNOMED CT Neck pain (SNOMED CT :1037579526 ) Name of Problem: Neck pain ; Recorder: Tracey Mathews RN; Confirmation: Confirmed ; Classification: Medical ; Code: 1226217989 ; Contributor System: PowerChart ; Last Updated: 11/06/2016 11:41 EST ; Life Cycle Date: 11/06/2016 ; Life Cycle Status: Active ; Vocabulary: SNOMED CT PCO - Polycystic ovaries (SNOMED CT :707710923 ) Name of Problem: PCO - Polycystic ovaries ; Recorder: Tracey Mathews RN; Confirmation: Confirmed ; Classification: Medical ; Code: 155586628 ; Contributor System: PowerChart ; Last Updated: 11/06/2016 11:30 EST ; Life Cycle Date: 11/06/2016 ; Life Cycle Status: Active ; Vocabulary: SNOMED CT Pneumonia (SNOMED CT :019156536 ) Name of Problem: Pneumonia ; Recorder: Tracey Mathews RN; Confirmation: Confirmed ; Classification: Medical ; Code: 727156074 ; Contributor System: PowerChart ; Last Updated: 11/06/2016 11:28 EST ; Life Cycle Date: 11/06/2016 ; Life Cycle Status: Active ; Vocabulary: SNOMED CT Sleep apnea (SNOMED CT :960729795 ) Name of Problem: Sleep apnea ; Recorder: JOSÉ MIGUEL BRADSHAW RN; Confirmation: Confirmed ; Classification: Medical ; Code: 435746096 ; Contributor System: PowerChart ; Last Updated: 06/18/2018 15:03 EDT ; Life Cycle Date: 06/18/2018 ; Life Cycle Status: Active ; Vocabulary: SNOMED CT Spinal stenosis of cervical region (SNOMED CT :382930605 ) Name of Problem: Spinal stenosis of cervical region ; Recorder: Tracey Mathews RN; Confirmation: Confirmed ; Classification: Medical ; Code: 932083325 ; Contributor System: PowerChart ; Last Updated: 11/06/2016 11:43 EST ; Life Cycle Date: 11/06/2016 ; Life Cycle Status: Active ; Vocabulary: SNOMED CT Wears glasses (SNOMED CT :594089557 ) Name of Problem: Wears glasses ; Recorder: JOSÉ MIGUEL BRADSHAW RN; Confirmation: Confirmed ; Classification: Medical ; Code: 369811716 ; Contributor System: [employer] ; Last Updated: 06/18/2018 15:01 EDT ; Life Cycle Date: 06/18/2018 ; Life Cycle Status: Active ; Vocabulary: SNOMED CT Diagnoses(Active) Abnormal laboratory findings Date: 10/17/2020 ; Diagnosis Type: Reason For Visit ; Confirmation: Complaint of ; Clinical Dx: Abnormal laboratory findings ; Classification: Medical ; Clinical Service: Non-Specified ; Code: PNED ; Probability: 0 ; Diagnosis Code: [id number] Shortness of breath Date: 10/17/2020 ; Diagnosis Type: Reason For Visit ; Confirmation: Complaint of ; Clinical Dx: Shortness of breath ; Classification: Medical ; Clinical Service: Non-Specified ; Code: PNED ; Probability: 0 ; Diagnosis Code: [id number] ED Height and Weight Height Source : Stated Height Entry Format : [place] Height, Feet : 5 ft(Converted to: 152 cm, 60 Inch) Height, Inches : 4 Inch(Converted to: 0 ft 4 Inch, 10.16 cm) Clinical Height : 162.56 cm Weight Source, ED : Critical estimated dosing weight Weight Entry Format : [place] Weight, Pounds : 250 lb Clinical Dosing Weight : 113.64 kg Body Surface Area (BSA) : 2.15 m2 Body Mass Index : 43 kg/m2 (>HHI) [place] Body Weight (IBW) : 54.3 kg Calli Cruz RN - 10/17/2020 17:31 EST documented in this encounter Plan of Treatment Not on file documented as of this encounter Visit Diagnoses Not on filedocumented in this encounter
--- OUTSIDE RECORDS SUMMARY | 2025-08-15 15:26 | XMS_ITS | Encounter Summary ---
Author Organization [employer] ([place], [place], [place], [place]) Address [address] [place] [address] Care Team Providers Care Supervisor Industrial Garment Name Role Phone Unavailable Primary Care Provider Unavailabl e Encounter Details Date Type Department Care Team (Late st Contact Info) Description 01/06/2021 Transcribed Document [facility] [place] [facility] [place] [address] ProviderDarrell MD [facility] [place], [place] [id number] Social History Tobacco Use Types Packs/Day Years Used Date Smoking Tobacco: Never Assessed Comments Unknown Sex and Gender Information Value Date Recorded Sex Assigned at Not on file Legal Sex Female 6:16 PM CDT Gender Identity Not on file Sexual Orientation Not on file documented as of this encounter Miscellaneous Notes * [employer] Conversion Note - Historical ProviderMD - 01/06/2021 12:16 PM 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 Pre Procedure Adult Entered On: 01/06/2021 12:18 EST Performed On: 01/06/2021 12:16 EST by Ligia Walter RN Height and Weight, Clinical Dosing Height Source : Stated Height Entry Format : [place] Height, Feet : 5 ft(Converted to: 152 cm, 60 Inch) Height, Inches : 4 Inch(Converted to: 0 ft 4 Inch, 10.16 cm) Clinical Height : 162.56 cm Weight Source : Standing scale Weight Entry Format : [place] Clinical Dosing Weight : 99.15 kg Weight, Pounds : 218 lb Weight, Ounces : 2 oz Body Surface Area (BSA) : 2.03 m2 Body Mass Index : 37.5 kg/m2 (HI) [place] Body Weight : 54 kg Ligia Walter [...] Ligia Walter RN - 01/06/2021 12:16 EST [place] Suicide Severity Rating Scale (C-SSRS) CSSRS Past [...] Info Preferred Name : wilfred Support Person/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 Aerospace Quality Engineer : Yes Support Person/Pt Rep Name : Chrissy Barr, Marina Perez, mother Support Person/Pt Rep Contact Information : [phone] Want Family/Rep/Phys Notified of Admit : No Emergency Contact #1 : chrissy Emergency Contact #1 Emergency Contact #1 Relationship : spouse Emergency Contact #2 : Emergency Contact #2 Phone Number : Emergency Contact #2 Relationship : Primary Language : [place] Preferred Communication Mode : Verbal Communication Barrier : None Jewelry Sales Representative Needed : No Ligia Walter RN - [...] Scale Risk Level : 0-24 Low Risk [place] Fall Interventions : Adequate lighting, Non-slip footwear, Wheels locked Ligia Walter RN - 01/06/2021 12:16 EST Valuables and Belongings Valuables and Belongings : Clothing, Personal items Clothing : Common streetwear Clothing Disposition : Bedside Personal Items : Cell phone, Purse Personal Items Disposition : Bedside Ligia Walter RN - 01/06/2021 12:16 EST Electronically signed by [facility] Conversion Pole Shaver Cerner at 02/18/2023 4:52 PM CDT documented in this encounter Plan of Treatment Not on file documented as of this encounter Visit Diagnoses Not on filedocumented in this encounter
--- OUTSIDE RECORDS SUMMARY | 2025-08-15 15:26 | XMS_ITS | Encounter Summary ---
Author Organization [employer] ([place], [place], [place], [place]) Address [address] [place] [address] Care Team Providers Care Project Technician Name Role Phone Unavailable Primary Care Provider Unavailabl e Encounter Details Date Type Department Care Team (Late st Contact Info) Description 04/14/2019 Transcribed Document [facility] [place] [facility] [place] [address] ProviderDarrell MD [address] [place] [id number] Social History Tobacco Use Types Packs/Day Years [...]
--- OUTSIDE RECORDS SUMMARY | 2025-08-15 15:26 | XMS_ITS | Encounter Summary ---
Author Organization [employer] ([place], [place], [place], [place]) Address [address] [place] [address] Care Team Providers Care Snow Ranger Name Role Phone Unavailable Primary Care Provider Unavailabl e Encounter Details Date Type Department Care Team (Late st Contact Info) Description 10/30/2018 Transcribed Document [facility] [place] [facility] [place] [address] ProviderDarrell MD [address] [place] [address] [phone] Social History Tobacco Use Types Packs/Day Years Used Date Smoking Tobacco: Never Assessed Comments Unknown Sex and Gender Information Value Date Recorded Sex Assigned at Not on file Legal Sex Female 6:16 PM CDT Gender Identity Not on file Sexual Orientation Not on file documented as of this encounter Miscellaneous Notes * Cerner Conversion Note - Historical MD Mark - 10/30/2018 1:58 PM 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 She states that they are starting on Symbicort and Spiriva to try to help her with it. The patient states that also they did tell her that she does have a small lung nodule in her lower lobe and that will heal itself. The patient does continue to take [place] 7.5/325 mg 2-3 times a day as [...] radiculopathy. 4. Cervical spondylosis. PLAN: 1. Refill [place] 7.5/325 mg 2-3 times a day as [...] Janes Mason Electronically signed by [facility] Conversion Process Coach Cerner at 02/18/2023 4:46 PM CDT documented in this encounter Plan of Treatment Not on file documented as of this encounter Visit Diagnoses Not on filedocumented in this encounter
--- OUTSIDE RECORDS SUMMARY | 2025-08-15 15:26 | XMS_ITS | Data Portability ---
Author Organization [facility] B[facility] [place] Address [address] [facility] [place] [address] Care Team Providers Care Slag Wheeler Name Role Phone JOHNCARI ANDERSON Pain Management TOM CHRISTOPHER Referring Provider Assessment Encounter Date Assessment Date Assessment LastModified by Organization Details LastModified Time 06/25/2017 06/25/2017 Ms. Devries is status post a 2 level ACDF [...] Not available 06/25/2017 14:01:31 10/03/2017 10/03/2017 Mrs. Devries repor ts persistent left-sided neck and arm [...] available 10/03/2017 15:02:00 09/05/2021 09/05/2021 HPI: Ms. Devries i s a 56yo female with history of asthma, COPD, osteoporosis, chronic neck pain, C5-[address] Benavidez November 2016 who presents today to our office for recheck of neck pain, upper extremity pain, last seen here 10/03/17, [facility] cervical [facility]. She describes pain in her neck which radiates into her left shoulder, left upper extremity group home to her elbow. Numbness and tingling on [...] she required hospitalization. She also talked to [facility] back in 2017 and they also [...] citrullina yadira peptide) iga+igg, serum 2019 020 [facility], [address] [place] [address], [phone], 0 02:31:52 C reactive protein, QN, serum or plasma 2019 020 [facility], [address] [place] [address], [address], 0 12:05:13 rf (rheumatoi d factor), serum 2019 [facility], [address] [place] [address], [address], 0 12:05:16 ESR (erythrocy te sedimentat ion rate), blood 2019 [facility], [address] [place] [address], [address], 0 12:07:47 uric acid, serum or plasma 2019 020 [facility], [address] [place] [address], [address], 0 12:05:14 SHAHLA (antinucle ar antibodies ) panel, serum 2019 [facility], [address] [place] [address], [address], 0 20:24:27 sjogren antibody panel, serum 2019 020 [facility], [address] [place] [address], [address], 0 14:33:56 thyroid panel, serum 2019 020 [facility], [address] [place] [address], [address], 0 15:14:22 hepatitis (A+B+C) panel, serum 2019 [facility], [address] [place] [address], [address], 0 12:34:14 T4, total, serum 2019 020 [facility], [address] [place] [address], [address], 0 12:08:33 T3, total, serum 2019 020 [facility], [address] [place] [address], [address], 0 12:08:34 TSH, serum or plasma 2019 020 [facility], [address] [place] [address], [address], 0 12:15:13 Referral None recorded. Procedures None recorded. Surgeries None recorded. Imaging CT, cervical spine, w/o contrast 2016 017 [facility], [address] [place] [address], [address], 7 13:34:59 Medication Orders duloxetine 30 mg capsule,de layed release 2019 020 [facility]FACE [facility], [address] [place], [address], 0 13:36:37 Patient TargetsNo targets recorded. Patient Instructions Encounter Date Encounter Id Patient Instructions Last Modified By Organization Details Last Modified Time 06/25/2017 [id number] cervical spondylosis: care instructions JOAO Not available 06/26/2017 17:52:28 neck arthritis: exercises JOAO Not available 06/26/2017 17:52:28 10/03/2017 [id number] cervical spondylosis: care instructions JOAO Not available [...] exclu de infla mmato ry proce sses. Saco yadira hanna ntrat ions of < 5 mg/dL in acute disea se occur in the prese nce of sligh t to moder ate infla mmato ry proce sses. Value s > 5 mg/dL indic ate high and exten sive infla mmato ry activ ity. Not Available [facility] [address] [place] [address], [address], 12/15/2019 12:05:13 12/15/1912/15/2019 uric acid, serum or plasm a uric acid 5.2 mg/dL 2.4-5. 7 normal Not Available [facility] [address] [place] [address], [address], 12/15/2019 12:05:14 12/15/1912/15/2019 rf (rheu matoi d facto r), serum rf screen, quant. <10.0 IU/mL 0.0-13 .9 normal Not Available [facility] [address] [place] [address], [address], 12/15/2019 12:05:16 12/15/1912/15/2019 ESR (eryt hrocy te sedim entat ion rate) , blood ESR, automated 34 mm/HR 0-29 high Not Available [facility] [address] [place] [address], [address], 12/15/2019 12:07:47 12/15/1912/15/2019 T4, total , serum T4 (thyroxine) 8.69 ug/dL 4.50-1 1.70 normal Not Available [facility] [address] [place] [address], [address], 12/15/2019 12:08:32 12/15/1912/15/2019 T3, total , serum T3, total 110.0 NG/dL 80.0-2 00.0 normal Not Available [facility] [address] [place] [address], [address], 12/15/2019 12:08:34 12/15/19 20 12/15/2019 TSH, serum or plasm a TSH 1.870 uIU/m L 0.290- 5.500 normal Not Available [facility] [address] [place] [address], [address], 12/15/2019 12:15:13 12/15/19 20 12/15/2019 hepat itis (A+B+ C) panel , serum hepatitis B surface Ag NON-RE ACTIVE non-re active normal Not Available [facility] [address] [place] [address], [address], 12/16/2019 16:34:45 12/15/19 20 12/16/2019 hepat itis (A+B+ C) panel , serum hepatitis A Ab, IgM NON-RE ACTIVE non-re active normal For addit ional infor salvatore gunter e refer to http: //[facility] willis.milton lizamaia gnost ics.c om/fa q/FAQ 202 (This link is being provi ded for infor luci jaramillo/ educa karlee l purpo ses only. ) TEST PERFO RMED AT: [facility] [address] [place] [place] [address] EVA Joshi MD Not Available [facility] [address] [place] [address], [address], 12/16/2019 16:34:45 12/15/19 20 12/16/2019 hepat itis (A+B+ C) panel , serum hepatitis B core Ab,IgM NON-RE ACTIVE non-re active normal TEST PERFO RMED AT: [facility] [address] [facility] [place] [address] EVA Joshi MD Not Available [facility] [address] [place] [address], [address], 12/16/2019 16:34:45 12/15/19 20 12/16/2019 hepat itis (A+B+ C) panel , serum hcab, reflex viral RNA qt NON-RE ACTIVE non-re active normal Not Available [facility] [address] [place] [address], [address], 12/16/2019 16:34:45 12/15/19 20 12/16/2019 hepat itis [...] a test for HCV RNA (test code 65937 ) is sugge sted. For addit ional infor luci chase e refer to http: //[facility] n.que stdia gnost ics.c om/fa q/FAQ 22v1 (This link is being provi ded for infor luci jaramillo/ educa karlee l purpo ses only. ) TEST PERFO RMED AT: [facility] [address] [place] [address] VEA Joshi MD Not Available [facility] [address] [place] [address], [address], 12/16/2019 16:34:45 12/15/19 20 12/16/2019 sjogr en antib ashish panel , serum ss-A Ab <1.0 NEG ai <1.0 neg normal Not Available [facility] [address] [place] [address], [address], 12/16/2019 14:33:56 12/15/19 20 12/16/2019 sjogr en antib ashish panel , serum ss-B Ab <1.0 NEG ai <1.0 neg normal TEST PERFO RMED AT: [facility] [address] [facility] [phone] EVA Joshi MD Not Available [facility] [address] [place] [address], [address], 12/16/2019 14:33:56 12/15/19 20 12/16/2019 thyro id panel , serum thyroid peroxidase Ab 1 IU/mL <9 normal TEST PERFO RMED AT: [facility] [address] [facility] [place] [facility], [place] [phone] EVA Joshi MD Not Available [facility] [address] [place] [address], [address], 12/16/2019 15:14:21 12/15/19 20 12/16/2019 thyro id panel , serum thyroglobuli n Ab <1 IU/mL < or = 1 normal TEST PERFO RMED AT: [facility] [address] [facility] [place] [facility] [place] [phone] EVA Joshi MD Not Available [facility] [address] [place] [address], [address], 12/16/2019 15:14:21 12/15/19 20 12/17/2019 ccp (cycl ic citru llina yadira pepti de) iga+i gg, serum anti-ccp <16 units normal Refer ence Range Negat kevin: <20 Weak Posit kevin: 20-39 Moder ate Posit kevin: 40-59 Stron g Posit kevin: >59 TEST PERFO RMED AT: [facility] [address] [facility] [place] [address] EVA Joshi MD Not Available [facility] [address] [place] [address], [address], 12/17/2019 02:31:52 12/15/19 20 12/17/2019 SHAHLA (anti [...] SHAHLA Patte rns (http s://d oi.or g/10. 1965/ [facility]- 2017- 0052) For addit ional infor salvatore gunter e refer to http: //[facility] willis.Que stDia gnost ics.c om/fa q/FAQ 177 (This link is being provi ded for infor matio nal/ educa karlee l purpo ses only. ) TEST PERFO RMED AT: [facility] [place] [address] [place] [address] EVA Joshi MD Not Available [facility] [address] [place] [address], [place], [address], 12/17/2019 20:24:27 10/03/20 17 10/03/2017 CT, cervi avinash spine , w/o contr ast [facility] [address] [place] [address] Vickie gaytan Name: FERMIN gaytan : 967 Vickie gaytan Orderi ng Provid er: VELMA BENAVIDEZ EXAM DATE: 2016 EXAM: CT CERVIC AL WITHOU T CONTRA ST HISTOR Y: 52-yea r-old female with neck pain and left arm numbne ss. The vickie t has had prior surger y. COMPAR ART: MRI and CT scan dated 017. Techni que: 1 mm direct axial [...] fied. The visual ized spinal cord and econometrics professor ior fossa of the brain are normal [...] lindquist MD on 2016 1:29 PM [facility] [address] [place], [address], 10/08/2017 12:55:54 12/11/19 20 04/09/2017 CT, cervi avinash spine , w/o contr ast No observ ation record ed. BARCODE [facility] [address] [place], [address], 12/11/2019 10:01:47 12/11/19 20 04/09/2017 CT, cervi avinash spine , w/o contr ast No observ ation record ed. BARCODE [facility] [address] [place], [address], 12/11/2019 10:02:40 09/06/20 21 06/06/2021 MRI, cervi avinash spine , w/o contr ast No observ ation record ed. BARCODE Not Available 2020 09:43:13 10/05/20 21 09/08/2021 CT, cervi avinash spine , w/o contr ast No observ ation record ed. JOAO Reyes (Centralized Scheduling) [address] [place] [address] , [place], [address], 10/07/2021 11:52:54 Result Notes Documentation Provider Name and Address Organization Details Recorded Time Ct, Cervical Spine, W/o Contrast : [facility] [address] [place] [id number] Patient Name: FERMIN DEVRIES Patient : [id number] Patient Ordering Provider: VELMA BENAVIDEZ EXAM DATE: 10/03/2017 EXAM: CT CERVICAL WITHOUT CONTRAST HISTORY: 52-year-old female with neck pain and left arm numbness. The patient has had prior surgery. COMPARISON: MRI and CT scan dated 03/15/2017. Technique: 1 mm direct axial slices were obtained through the cervical spine. Computer-generated axial, coronal, and sagittal reconstructions are provided for interpretation. FINDINGS: The patient is status post anterior fusion from C5 through C7. There is beam hardening artifact secondary to the anterior plate and bridging screws. No hardware failure is identified. There is no charles loosening of the hardware. There is partial bridging bone of the disc spaces. The cervical spine is normal in alignment. There is no subluxation. There is no fracture or pathologic intraosseous lesion. There is mild anterior marginal osteophytic spurring. No paraspinous soft tissue abnormality is identified. The visualized spinal cord and posterior fossa of the brain are normal in appearance. The craniocervical junction is normal in appearance. There are mild degenerative changes at C1-C2. C2-C3: There is a minimal disc bulge. There is no central canal stenosis. There is no neural foraminal stenosis. C3-C4: There is a broad-based disc protrusion, mild endplate spurring, and mild facet arthropathy. There is mild central canal stenosis. There is mild bilateral neural foraminal narrowing. C4-C5: There is a mild disc bulge and mild endplate spurring. There is prominent right-sided facet arthropathy. There is no central canal stenosis. There is moderate right neural foraminal narrowing. C5-C6: There is prior fusion at this level with residual endplate spurring. There is minimal central canal stenosis. There is no neural foraminal stenosis. C6-C7: There is prior fusion at this level with mild residual endplate spurring. There is minimal central canal stenosis. There is no neural foraminal stenosis. C7-T1: This intervertebral disc is essentially normal in appearance. The visualized thoracic spine are essentially normal in appearance. IMPRESSION: 1. The patient is status post anterior fusion from C5 through C7. There is no charles loosening of the hardware. 2. There is mild central canal narrowing and mild neural foraminal narrowing at C3-C4. 3. There is moderate right neural foraminal narrowing at C4-C5. Interpreted By: Bartolo Madrid MD A BENAVIDEZ MD [address] [place] [address], [address] 10/08/2017 12:55:54 Problems Name Problem SNOMED Code Status Onset Date Resolution Date Notes Provider Name and Address Organization Details Recorded Time Degenerat ion of cervical intervert ebral disc 17051922 Active 2015 From Automated Load;Provi chago: Shelley Estevez;Sta tus: Active Not Available [facility] 6 08:00:27 Cervical spondylos is 834607465 Active 2015 From Automated Load;Provi chago: Velma Benavidez;Sta tus: Active Not Available [facility] 6 08:00:27 Cervical spondylos is with radiculop athy Active 2015 From Automated Load;Provi chago: Velma Benavidez;Sta tus: Active Not Available [facility] 7 02:42:32 Problem Notes None recorded. Procedures Surgical History Date Name Laterality Status Provider Name and Address Organization Details Recorded Time 11/07/19 17 Neck Surgery completed [facility] 12/11/2016 14:07:54 Appendectomy completed [facility] 10/18/2016 14:39:47 Cholecystectomy completed [facility] 10/18/2016 14:40:04 Other completed [facility] 10/18/2016 14:40:46 Hysterectomy/revise vagina completed [facility] 10/18/2016 14:41:03 Unlisted procedure breast completed [facility] 10/18/2016 14:41:22 Imaging Results None recorded. Procedure Notes None recorded. Medical Equipment None Reported. Allergies Allergen ID Allergen Name Allergen Category Reaction Reaction Severity Criticality Documentation Date Start Date Code Code System Note Provider Name and Address Organization Details Recorded Time 462715 Tylenol medicatio n Not available Not available Not available 09/28/20162015 3 RxNorm Comme nt: Creat ed By: Russ Mercadoa yadira Date: 2015 10:01 :09 AM; Not Available [facility] 6 09:43:19 326320 Product containin g penicilli n (product) medicatio n Not available Not available Not available 09/28/20162015 68640 8001 SNOMED Comme nt: Creat ed By: Russ Mercadoa yadira Date: 2015 10:00 :53 AM; Not Available [facility] 6 10:21:54 121693 codeine medicatio n Not available Not available Not available 09/05/2021 2670 Rx[facility] 14:02:38 Medications Name Sig Start Date Stop [...] active Not Available Not Available Not Available Oxford 5 mg-325 mg tablet Take 1 tablet [...] Body height Respiratory rate Heart rate Systolic And Diastolic Provider Name and Address Organization Details Last Updated DateTime 0 [address]8330.7 7 g 36.7 kg/m2 162.56 cm 18 /min 85 /min 120/73 mm[Hg] Lindy Ace [facility] 0 10:36:14 Date Recorded Body height Provider Name an d Address Organization Details Last Updated DateTime 04/27/2020 162.56 cm JAVAN RAMSEY, [employer] [address] [place], [address], [facility] 04/27/2020 13:33:00 Date Recorded Body height Body mass index (BMI) Body weight Systolic And Diastolic Provider Name and Address Organization Details Last Updated DateTime 06/25/2017 162.56 cm 33.5 kg/m2 17140.51 g 114/70 mm[Hg] Yesi [place] [facility] 06/25/2017 13:24:53 Date Recorded Body height Body mass index (BMI) Body weight Heart rate Systolic And Diastolic Provider Name and Address Organization Details Last Updated DateTime 09/05/2021 162.56 cm 36 kg/m2 34252.4 g 92 /min 131/79 mm[Hg] Oliva Allen [facility] 09/05/2021 14:02:21 Date Recorded Body height Body mass index (BMI) Body weight Systolic And Diastolic Provider Name and Address Organization Details Last Updated DateTime 10/03/2017 162.56 cm 33.5 kg/m2 27636.51 g 130/66 mm[Hg] Yesi [place] [facility] 10/03/2017 14:20:42 Social History Question Answer Notes LastModified by Organizat ion Details LastModified Time Tobacco Smoking Status Never Smoker Yesi German [facility] 10/18/2016 14:42:09 What Was The Date Of Your Most Recent Tobacco Screening? 12/15/2019 [email or web address] Information not available 12/15/2019 How Much Tobacco Do You Smoke? No [email or web address] Information not available 12/15/2019 How Many Years Have You Smoked Tobacco? 0 [email or web address] Information not available 12/15/2019 Sex: Unknown Functional Status Question Answer Note LastModified by Organizat ion Details LastModified Time Do you or have you ever used smokeless tobacco? Never used smokeless tobacco [email or web address] Information not available 12/15/2019 Do you or have you ever used e-cigarettes or vape? Never used electronic cigarettes [email or web address] Information not available 12/15/2019 Mental Status None recorded. Family History Relationship Description Onset Age of this Age Resolved Age Notes LastModified by Organization Details LastModified Time Mother Cataract [email or web address] Not available 1 12/03/2016 14:20:50 Father Myocardial infarction [email or web address] Not available 12/25 14:30:44 Medical History Condition Response Diabetes N Bleeding Disorder N Arthritis Y Emphysema N Heart Disease N Acid Reflux (GERD) Y Rheumatoid Arthritis N Hypertension N COPD N Asthma Y Gynecological HistoryNo gynecological history recorded. Obstetrics History GPAL:G 0 P 0 0 0 0 Past Encounters Encounter ID Performer Location Encounter Start Date Encounter Closed Date Diagnosis/Indication Diagnosis SNOMED-CT Code Diagnosis ICD10 Code Diagnosis IMO Codes Diagnosis Note [id number] KRISHNA GIL MD NEUROLOGY [facility] [address] [place] [address] 10/18/2016 13:42:42 10/19/2016 08:06:37 Cervical radiculopathy 33545378 M54.12 Cervical s pondylosis with radiculopathy 536898053 M47.22 [id number] VELMA BENAVIDEZ MD [facility] [address] [place] [address] 10/18/2016 14:29:12 10/19/2016 14:14:15 Cervical spondylosis 010787358 M47.643 [id number] CORA MAHAN PA-C [facility] [address] [place] [address] 11/13/2016 12:58:40 11/13/2016 13:57:49 Cervical radiculopathy 86079839 M54.12 Low back pain 584924166 M54.5 [id number] VELMA BENAVIDEZ MD [facility] [address] [place] [address] 12/11/2016 12:50:59 12/11/2016 14:40:06 Cervical spondylosis with radiculopathy 143684794 M47.22 [id number] JACQUI MOSLEY MD OPHTHALMO [address] [place] [address] 12/25/2016 13:39:27 12/27/2016 09:28:16 Diplopia 16055555 H53.2 Presbyopia 83702059 H52. 4 [id number] VELMA BENAVIDEZ MD [facility] [address] [place] [address] 03/12/2017 13:14:24 03/12/2017 14:22:08 Cervical spondylosis with radiculopathy 246966809 M47.22 [id number] VELMA BENAVIDEZ MD [facility] [address] [place] [address] 04/25/2017 11:23:28 04/25/2017 13:03:07 Cervical spondylosis with radiculopathy 243216963 M47.22 [id number] VELMA BENAVIDEZ MD [facility] [address] [place] [address] 06/25/2017 12:36:13 06/25/2017 14:17:37 Cervical spondylosis with radiculopathy 553386759 M47.22 Cervical spondylosis 387 790398 M47.147 [id number] VELMA BENAVIDEZ MD [facility] [address] [place] [address] 10/03/2017 13:59:12 10/03/2017 15:37:26 Cervical spondylosis 275765121 M47.446 [id number] JAVAN RAMSEY APRN RHE[facility] [address] [address] 12/15/2019 09:54:18 12/15/2019 10:56:54 Pain of multiple joints 14973408 M25.50 chronic and recurring with worsening myalgia [...] to fibromyalg ia syndrome and oa Xerostomia 41691609 K11. 7 severe dry mouth; two cavities before age 52; teeth falling out now; dentist mentions concerns Fatigue 28344098 R53.83 worsening overall will assess thyroid panel and hepatitis panel to assess for further systemic disease [id number] JAVAN RAMSEY APRN RHEUMATOL [facility] [address] [place] [address] 04/27/2020 08:12:04 04/27/2020 14:05:49 Pain of multiple joints 35756776 M25.50 chronic and recurring with worsening myalgia [...] to fibromyalg ia syndrome and oa Xerostomia 99044390 K11. 7 severe dry mouth; two cavities before age 52; teeth falling out now; dentist mentions concerns Fatigue 03420286 R53.83 worsening overall will assess thyroid panel and hepatitis panel to assess for further systemic disease Fibromyalgia 921801317 M 79.7 chronic and recurring with worsening [...] outcome in 3 months or sooner prn [id number] MATTHEW DONAHUE PA-C [facility] [address] [facility] [address] [place] [address] 09/05/2021 12:53:38 09/06/2021 09:26:09 Cervical radiculopathy 66439996 M54.12 Health Concerns Section Related Observation LastModified by Organization Detai ls LastModified Time None Recorded Concern Status LastModified by Organization Details LastModified Time None Recorded Advance Directives Directive None Recorded Payers Insurance Date Sequence Insurance Name Policy Number Policy Esteban Covered Member ID Esteban Member ID Guarantor Name 09/04/2021 3 [place] [id number] Fermin Devries [id number] Fermin Devries 09/16/2024 1 [place] [id number] Ja Devries [id number] Fermin Devries 09/04/2021 2 [place] Fermin Devries [id number] Fermin Devries Notes Date Note Type Note Provider Name and Address Organization Details Recorded Time 06/25/2017 text/html I saw Fermin Devries in follow-up. I performed a C5-6 C6-7 [...] filed for long-term disability. VELMA BENAVIDEZ MD [address] [place] [address], [phone], [facility] 06/25/2017 14:03:07 10/03/2017 text/html Dear Dr. Mason, I saw Fermin Devries in follow-up.I last saw on June 25, [...] She sees Dr. Krishna. She went to [facility] in July and no surgical recommendation was made. She continues to wear her bone stimulator. She wears a collar at night. VELMA BENAVIDEZ MD [address] [place] [address], [address], [facility] 10/03/2017 15:02:34 12/15/2019 text/html ROS as noted in the HPI 54 yo pleasant fe, new patient here for initial evaluation and [...] and all others are negative JAVAN RAMSEY, TALENT ACQUISITION PARTNER [address] [place] [address], [phone], [facility] 12/27/2019 12:58:43 04/27/2020 text/html ROS as noted in the HPI Visit today is being conducted via telehealth using both audio and [...] and all others are negative JAVAN RAMSEY, TALENT ACQUISITION PARTNER [address] [place], [address], [facility] 04/27/2020 13:38:23 09/05/2021 text/html ROS as noted in the HPI Ms. Devries is a 56yo female with history of asthma, COPD, osteoporosis, chronic neck pain, C5-[address] Benavidez November 2016 who presents today to our office for recheck of neck pain, upper extremity pain, last seen here 10/03/17, [facility]. She describes pain in her neck which radiates into her left shoulder, left upper extremity group home to her elbow. Numbness and tingling on that left side as well as him distributional. Also some pain that radiates down between her shoulder blades. She says that after surgery, she was in the worst pain of her life for the next 10 days postoperatively, but that call down on the 11th today, and that was mainly left shoulder [...] she required hospitalization. She also talked to [facility] back in 2017 and also did [...] was immediately postop. MATTHEW DONAHUE PA-C [address] [place], [address], [facility] 09/05/2021 14:57:55 OBGyn Episode No OBEpisode recorded.
--- OUTSIDE RECORDS SUMMARY | 2025-08-15 15:26 | XMS_ITS | Encounter Summary ---
Author Organization [employer] ([place], [place], [place], [place]) Address [address] [place] [address] Care Team Providers Care Chalk Machine Operator Name Role Phone Unavailable Primary Care Provider Unavailabl e Encounter Details Date Type Department Care Team (Late st Contact Info) Description 01/06/2021 Transcribed Document [facility] Family Medicine [facility] [place] [address] ProviderDarrell MD [address] [place] [id number] Social History Tobacco Use Types Packs/Day Years Used Date Smoking Tobacco: Never Assessed Comments Unknown Sex and Gender Information Value Date Recorded Sex Assigned at Not on file Legal Sex Female 6:16 PM CDT Gender Identity Not on file Sexual Orientation Not on file documented as of this encounter Miscellaneous Notes * Cerner Conversion Note - Historical ProviderMD - 01/06/2021 12:45 PM CONSTRUCTION DRILLER [facility] PACU Summary Primary Physician: SEA OLSON MD Finalized Date/Time: 01/06/21 13:56:56 Pt. Name: FERMIN BARR/Sex: 1965 Female Med Rec #: [id number] Physician: SEA OLSON MD Financial #: [id number] Pt. Type: O Room/Bed: END/ Admit/Disch: 01/06/21 11:16:00 - 01/06/21 13:55:00 Institution: [facility] PACU Case Times Entry 1 In PACU I 01/06/21 13:10:00 Ready for PACU 01/06/21 13:50:00 Discharge Discharge from PACU 01/06/21 13:56:00 I Last Modified By: Nessa Islas RN 01/06/21 13:56:53 [facility] Endo PACU Case Times Audit 01/06/21 13:56:53 Marine Equipment Research Engineer: [id number] Modifier: [id number] <+> 1 Ready for PACU Discharge <+> 1 Discharge from PACU I Finalized By: Nessa Islas RN Document Signatures Signed By: Nessa Islas RN 01/06/21 13:56 Electronically signed by [facility] Conversion Edge Dyer Cerner at 02/18/2023 5:12 PM CDT documented in this encounter Plan of Treatment Not on file documented as of this encounter Visit Diagnoses Not on filedocumented in this encounter
--- OUTSIDE RECORDS SUMMARY | 2025-08-15 15:26 | XMS_ITS | Encounter Summary ---
Author Organization [employer] ([place], [place], [place], [place]) Address [address] [place] [address] Care Team Providers Care Aesthetician Name Role Phone Unavailable Primary Care Provider Unavailabl e Encounter Details Date Type Department Care Team (Late st Contact Info) Description 08/17/2019 Transcribed Document [facility] Family Medicine [facility] [place] [address] ProviderDarrell MD [address] [place] [id number] Social History Tobacco Use Types Packs/Day Years [...] Janes Mason Electronically signed by [employer]era [facility] Conversion Audio Visual Technician Cerner at 02/18/2023 4:52 PM CDT documented in this encounter Plan of Treatment Not on file documented as of this encounter Visit Diagnoses Not on filedocumented in this encounter
--- OUTSIDE RECORDS SUMMARY | 2025-08-15 15:26 | XMS_ITS | Encounter Summary ---
Author Organization [employer] ([place], [place], [place], [place]) Address [address] [place] [address] Care Team Providers Care Computer Processing Scheduler Name Role Phone Unavailable Primary Care Provider Unavailabl e Encounter Details Date Type Department Care Team (Late st Contact Info) Description 11/24/2020 Transcribed Document [facility] Family [place] [address] ProviderDarrell MD [address] [place] [id number] Social History Tobacco Use Types Packs/Day Years Used Date Smoking Tobacco: Never Assessed Comments Unknown Sex and Gender Information Value Date Recorded Sex Assigned at Not on file Legal Sex Female 6:16 PM CDT Gender Identity Not on file Sexual Orientation Not on file documented as of this encounter Miscellaneous Notes * Cerner Conversion Note - Historical ProviderMD - 11/24/2020 3:48 PM PARCEL POST DELIVERY DATE OF ADMISSION: 11/24/2020 HISTORY OF PRESENT [...] visit and the patient has been afebrile. /[id number] Pepe Krishna MD, BLAKE Pain Certified KR/AQ / KR / MODL CC: REYES BRONSON MD Electronically signed by [employer], [facility] Conversion Rod And Tube Straightener Cerner at 02/18/2023 4:50 PM CDT documented in this encounter Plan of Treatment Not on file documented as of this encounter Visit Diagnoses Not on filedocumented in this encounter
--- OUTSIDE RECORDS SUMMARY | 2025-08-15 15:26 | XMS_ITS | Encounter Summary ---
Author Organization Healthcare Address [address] [place] [address] Care Team Providers Care Manager Ship Name Role Phone Janes Mason MD Primary Care Provider Encounter Details Date Type Department Care Team (Late st Contact Info) Description 02/28/2023 [facility] [address] [place] [address] Bud Shea MD [address] [facility], [address] [address] Other headache syndrome (Primary Dx) Social History [...] Primary documented in this encounter Care Teams Manager Ship Relationship Specialty Start Date End Date Janes Mason MD [address] [place] [address] PCP - General 03/17/21 documented as of this encounter
--- OUTSIDE RECORDS SUMMARY | 2025-08-15 15:26 | XMS_ITS | Data Portability ---
Author Organization [place] [facility] Address [address] [place] [address] Care Team Providers Care Media Center Assistant Name Role Phone REYES BRONSON Primary Care Provider Assessment No assessment recorded. Plan of Treatment Reminders Order Date Submit Date Provider Last Modified By Organization Details Last Modified Time Details Appointments Establish ed Visit 15 min 2024 11:00A M AVRIL CHAIREZ NP Not available Not available Not available Lab drug screen, urine - [place] [id number] Urine or blood. If unable to obtain specimen, they will need to drink fluids and wait three hours. Do not let them leave the facility. If still unable to get specimen after 3 hours call the office or it's a failed UDS. 2024 025 [facility] (Registration ), [place], [address], 07/16/2025 10:40:38 pregabali n, urine 2024 025 [facility] (Registration ), [place], [address], 06/29/2025 12:31:43 gabapenti n, QL, urine 2024 025 [facility] (Registration ), [place], [address], 06/29/2025 12:31:43 drug screen, urine - [place] 737691 Urine or blood. If unable to obtain specimen, they will need to drink fluids and wait three hours. Do not let them leave the facility. If still unable to get specimen after 3 hours call the office or it's a failed UDS. [address] (Registration ), [address] [place] [address] , [place], [address], 06/22/2025 14:02:30 pregabali n, urine [address] (Registration ), [facility] Janis Hoffman, [place], [address], 06/22/2025 14:02:30 gabapenti n, QL, urine [address] (Registration ), [address] [place] [address] Janis Hoffman, [place], [address], 06/22/2025 14:02:30 Referral None recorded. Procedures None recorded. Surgeries None recorded. Imaging None recorded. Medication Orders hydrocodo ne 7.5 mg-acetam inophen 325 mg tablet 2024 [facility] [id number], [address] [facility] , [place], [address], 06/29/2025 12:21:21 methocarb jayne 500 mg tablet 2024 025 [facility] [id number], [address] [facility] , [place], [address], 06/29/2025 12:21:15 meloxicam 15 mg tablet 2024 025 [facility] [id number], [address] [facility] , [place], [address], 06/29/2025 12:21:18 hydrocodo ne 7.5 mg-acetam inophen 325 mg tablet 2024 025 [facility] [id number], [address] [facility] , [place], [address], 04/29/2025 10:50:50 pregabali n 50 mg capsule 2024 025 [facility] [id number], [address] [facility] , [place], [address], 04/29/2025 10:50:49 Celebrex 200 mg capsule 2024 025 [facility] [id number], [address] [facility] , [place], [address], 06/29/2025 11:20:04 hydrocodo ne 7.5 mg-acetam inophen 325 mg tablet 2024 025 [facility] [id number], [address] [facility] , [place], [address], 03/01/2025 11:12:40 meloxicam 15 mg tablet 2024 025 [facility] [id number], [address] [facility] , [place], [address], 03/01/2025 11:12:34 pregabali n 50 mg capsule 2024 025 [facility] [id number], [address] [facility] , [place], [address], 03/01/2025 11:12:39 Narcan 4 mg/actuat ion nasal spray 2024 025 [facility] [id number], [address] [facility] , [place], [address], 03/01/2025 11:13:18 Patient TargetsNo targets recorded. Patient [...] n Not available Not available unabletoasse 12/21/2024 [phone] SNOMED Malgorzata k[place], [place] - [facility] - [place] & [place] 10:35:50 Medications Name Sig Start Date Stop [...] active Not Available Not Available Not Avai sridevialetha Xiong Pen monthly active Not Available Not Available [...] [degF] 96 % 96 % 84 /min 5 16 /min 124/60 mm[Hg] [facility] & [place] 5 10:54:52 Date Recorded Body temperature Oxygen saturation Oxygen saturation in Arterial blood by Pulse oximetry Heart rate Pain severity - 0-10 verbal numeric rating [Score] - Reported Respiratory rate Systolic And Diastolic Provider Name and Address Organization Details Last Updated DateTime 5 98 [degF] 98 % 98 % 82 /min 5 16 /min 122/72 mm[Hg] [facility] & [place] 5 10:06:27 Date Recorded Body temperature Oxygen saturation Oxygen saturation in Arterial blood by Pulse oximetry Heart rate Pain severity - 0-10 verbal numeric rating [Score] - Reported Respiratory rate Systolic And Diastolic Provider Name and Address Organization Details Last Updated DateTime 5 97.2 [degF] 97 % 97 % 84 /min 6 16 /min 132/60 mm[Hg] [facility] & [place] 5 11:18:45 Social History None recorded. Functional Status None recorded. Mental Status None recorded. Family History Nothing Reported. Medical History No medical history recorded. Gynecological HistoryNo gynecological history recorded. Obstetrics History GPAL:G 0 P 0 0 0 0 Past Encounters Encounter ID Performer Location Encounter Start Date Encounter Closed Date Diagnosis/Indication Diagnosis SNOMED-CT Code Diagnosis ICD10 Code Diagnosis IMO Codes Diagnosis Note [id number] [facility] [address] [address] 12/21/2024 10:33:09 12/21/2024 10:56:08 Cervical radiculopathy 49665765 M54.12 Cervical spondylosis 387 860970 M47.812 Chronic neck pain 878704 3537 107 M54.2 Lumbar radiculopathy 128 980956 M54.16 [id number] RADHA [facility]OL[facility] [address] [address] 03/01/2025 10:46:00 03/01/2025 11:09:11 Cervical radiculopathy 48253452 M54.12 Cervical spondylosis 387 555683 M47.812 Chronic neck pain 885561 2340 107 M54.2 Lumbar radiculopathy 128 029931 M54.16 History of cervical spine fusion 4782119437 101 Z98.1 985185 [id number] RADHA NOYOLA [facility] [address] [address] 04/29/2025 09:54:07 04/29/2025 10:49:37 Cervical radiculopathy 96175789 M54.12 Cervical spondylosis 387 609986 M47.812 Chronic neck pain 251917 0261 107 M54.2 Lumbar radiculopathy 128 752725 M54.16 History of cervical spine fusion 1352230900 101 Z98.1 [id number] MD CLARE Alcantara [facility] [address] [address] 06/29/2025 10:56:31 06/29/2025 11:39:18 Cervical radiculopathy 49506231 M54.12 Cervical spondylosis 387 142526 M47.812 Chronic neck pain 314393 1064 107 M54.2 Lumbar radiculopathy 128 729287 M54.16 History of cervical spine fusion 2072021527 101 Z98.1 920410 Health Concerns Section Related Observation LastModified by Organization Detai ls LastModified Time None Recorded Concern Status LastModified by Organization Details LastModified Time None Recorded Advance Directives Directive None Recorded Payers Insurance Date Sequence Insurance Name Policy Number Policy Esteban Covered Member ID Esteban Member ID Guarantor Name 06/02/2025 2 [place] 111 Darshana Barr [id number] Darshana Barr 06/26/2025 [place]ARE[place] Darshana Barr [id number] Darshana Momo 06/26/2025 1 [place] Darshana Barr [id number] Darshana Barr 07/29/2025 2 [place] [employer] 111 Darshana Barr [id number] Darshana Barr Notes Date Note Type Note Provider Name and Address Organization Details Recorded Time 12/21/2024 text/html ROS as noted in the HPI 59 yo female on telehealth visit for [...] not consume AVRIL CHAIREZ NP [address] , [place], [address], [facility] [place] [facility] [place] 12/21/2024 10:59:44 03/01/2025 text/html ROS as noted in the HPI [...] is doing better now. RADHA NOYOLA Dr, [place], [address], [facility] & [place] 03/01/2025 11:13:35 04/29/2025 text/html ROS as noted in the HPI 59 yo female in for f/u for neck and left shoulder pain. Pain is rated at a 5/10 and has been a 7/10 in the last month. Pain is constant, dull and aching. Pain radiates down left shoulder and causes weakness. Does not cause bowel or bladder loss.Currently taking [place] 7.5/325 mg TID, meloxicam 15 mg BID and Lyrica 50 mg BID. She has had a cervical fusion and constant radicular pain down the L arm. She still has her horses and says she hopes to ride this summer if she can. RAD[address], [place], [address], [facility] & [place] 04/29/2025 10:50:59 06/29/2025 text/html ROS as noted in the HPI 59 yo female in for f/u for neck and left shoulder pain. Pain is rated at a 6/10 and has been a 7/10 in the last month. Pain is constant, dull, burning and aching. Pain radiates down left shoulder and causes weakness. Does not cause bowel or bladder loss. Currently taking [place] 7.5/325 mg TID, meloxicam 15 mg BID and Lyrica 50 mg BID prn. She has had a cervical fusion and constant radicular pain down the L arm. She has been taking methocarbamol and would like a rx for it. AVRIL CHAIREZ NP [address], [place], [address], [facility] & [place] 06/29/2025 12:21:23 OBGyn Episode No OBEpisode recorded.
--- OUTSIDE RECORDS SUMMARY | 2025-08-15 15:26 | XMS_ITS | Encounter Summary ---
Author Organization [employer] ([place], [place], [place], [place]) Address [address] [place] [address] Care Team Providers Care Radio Frequency Design Engineer Name Role Phone Unavailable Primary Care Provider Unavailabl e Encounter Details Date Type Department Care Team (Late st Contact Info) Description 12/15/2019 Transcribed Document [facility] [place] [address] ProviderDarrell MD [address] [place] [id number] Social History Tobacco Use Types Packs/Day Years Used Date Smoking Tobacco: Never Assessed Comments Unknown Sex and Gender Information Value Date Recorded Sex Assigned at Not on file Legal Sex Female 6:16 PM CDT Gender Identity Not on file Sexual Orientation Not on file documented as of this encounter Miscellaneous Notes * Cerner Conversion Note - Historical ProviderMD - 12/15/2019 1:46 PM TEASELER DATE OF ADMISSION: 12/15/2019 HISTORY OF PRESENT [...] Lyrica 100 mg three times daily, and Conesus 7.5/325 mg three times daily as needed. [...] 100 mg three times daily. 4. Continue Conesus 7.5/325 mg three times daily as needed. [...] patient to attend her workup with the furnace mechanic. 9. We are going to see the patient back in 1 month to re-evaluate. 10. The assessment and plan for today's visit have been reviewed by Dr. Krishna, however, I have prescribed the medications for this patient's treatment plan today. /[id number] Jazz Orta APRN PITA/AQ / PITA / MODL CC: MD Nneka Alcantar APRN Electronically signed by [facility] Conversion Oil Well Fishing Tool Technician Kyliener at 02/18/2023 5:04 PM CDT documented in this encounter Plan of Treatment Not on file documented as of this encounter Visit Diagnoses Not on filedocumented in this encounter
--- OUTSIDE RECORDS SUMMARY | 2025-08-15 15:26 | XMS_ITS | Clinical Summary ---
Author Organization [facility] Address [address] [place] [address] Phone Care Team Providers Care Videotape Sales Representative Name Role Phone Janes Mason Primary Care Provider [phone] Allergies Active Allergy Reactions Criticality Noted Date [...] age to complete this topic Insurance [facility] Care Teams Videotape Sales Representative Relationship Specialty Start Date End Date Janes Mason [address] [place] [phone] PCP - General Family Medicine 04/09/17
--- OUTSIDE RECORDS SUMMARY | 2025-08-15 15:26 | XMS_ITS | Encounter Summary ---
Author Organization [employer] ([place], [place], [place], [place]) Address [address] [place] [address] Care Team Providers Care Telephonic Nurse Case Manager Name Role Phone Unavailable Primary Care Provider Unavailabl e Encounter Details Date Type Department Care Team (Late st Contact Info) Description 01/06/2021 Transcribed Document [facility] [place] [facility] [place] [address] ProviderDarrell MD [address] [place] [address] Social History Tobacco Use Types Packs/Day Years Used Date Smoking Tobacco: Never Assessed Comments Unknown Sex and Gender Information Value Date Recorded Sex Assigned at Not on file Legal Sex Female 6:16 PM CDT Gender Identity Not on file Sexual Orientation Not on file documented as of this encounter Miscellaneous Notes * Cerner Conversion Note - Historical ProviderMD - 01/06/2021 1:08 PM CAMPGROUND CLEANING ATTENDANT [facility] [place] [address] FERMIN BARR :1965 Visit Time:01/06/2021 [...] OLSON When Only if needed Where: [address] [facility] [address] [place] [address]- [facility] (1) Medications What How Much When [...] times a day. General instructions ??? Take jzve-wef-ytwilhj and prescription medicines only as told by [...] 07/30/2009 Document Revised: 10/29/2019 Document Reviewed: 03/12/2019 [employer] Patient Education ?? 2020 [employer]. Instructions for after EGD with Dilation 1. [...] activities are safe for you. ??? Take gcgo-ewd-vajbvno and prescription medicines only as told by [...] Reviewed: 06/06/2018 Elsevier Patient Education ?? 2020 [employer] Emergency Awareness and Preventative Care STROKE [...] Assistance with quitting is available by contacting 4-759-RCNT-NOW. This is a free resource providing counseling, [...] was given the opportunity to ask questions. Patient/Body Masker Name: Patient/Body Masker Signature: Relationship to Patient: Clinician/Hospital Body Masker Signature: Date: Electronically signed by Interface, [facility] Conversion Cover Stitch Machine Operator Robby at 02/18/2023 5:06 PM CDT documented in this encounter Plan of Treatment Not on file documented as of this encounter Visit Diagnoses Not on filedocumented in this encounter
--- OUTSIDE RECORDS SUMMARY | 2025-08-15 15:26 | XMS_ITS | Encounter Summary ---
Author Organization [employer] ([place], [place], [place], [place]) Address [address] [place] [address] Care Team Providers Care Human Resources Associate Name Role Phone Unavailable Primary Care Provider Unavailabl e Encounter Details Date Type Department Care Team (Late st Contact Info) Description 10/12/2019 Transcribed Document [facility] [place] [facility] [place] [address] ProviderDarrell MD [address] [place] [id number] Social History Tobacco Use Types Packs/Day Years Used Date Smoking Tobacco: Never Assessed Comments Unknown Sex and Gender Information Value Date Recorded Sex Assigned at Not on file Legal Sex Female 6:16 PM CDT Gender Identity Not on file Sexual Orientation Not on file documented as of this encounter Miscellaneous Notes * Cerner Conversion Note - Historical ProviderMD - 10/12/2019 2:22 PM STORE MERCHANDISER DATE OF ADMISSION: 10/12/2019 Darshana Barr is [...] will discuss it in the next visit. /[id number] Pepe Krishna MD, BLAKE Pain Certified KR/AQ / KR / MODL CC: Janes Mason MD documented in this encounter Plan of Treatment Not on file documented as of this encounter Visit Diagnoses Not on filedocumented in this encounter
--- OUTSIDE RECORDS SUMMARY | 2025-08-15 15:26 | XMS_ITS | Encounter Summary ---
Author Organization [employer] ([place], [place], [place], [place]) Address [address] [place] [address] Care Team Providers Care Coordinator Volunteer Services Name Role Phone Unavailable Primary Care Provider Unavailabl e Encounter Details Date Type Department Care Team (Late st Contact Info) Description 01/06/2021 Transcribed Document [facility] [place] Family Medicine [facility] [place] [address] ProviderDarrell MD [address] [place] [address] [id number] Social History Tobacco Use Types Packs/Day Years Used Date Smoking Tobacco: Never Assessed Comments Unknown Sex and Gender Information Value Date Recorded Sex Assigned at Not on file Legal Sex Female 6:16 PM CDT Gender Identity Not on file Sexual Orientation Not on file documented as of this encounter Miscellaneous Notes * Cerner Conversion Note - Historical ProviderMD - 01/06/2021 12:45 PM COAL WASHER [facility] Endo IntraOp Summary Primary Physician: SEA OLSON MD Finalized Date/Time: 01/06/21 13:06:19 Pt. Name: FERMIN BRAR/Sex: 1965 Female Med Rec #: [id number] Physician: SEA OLSON MD Financial #: [id number] Pt. Type: O Room/Bed: END/ Admit/Disch: 01/06/21 11:16:00 - Institution: [facility] Endo - Case Attendance Entry 1 Entry 2 Entry 3 Case Attendee SEA OLSON MD GHANSAH, NANA DADZIE, Mcclintock, Molly, Rn MD-ANS Role Performed Surgeon/Proceduralist, Anesthesiologist of Bulk Receiver, First First Record Time In 01/06/21 12:38:00 [...] BURGESS, MONICA ZEPEDA, LATISHA SHELLEY Role Performed Bulk Receiver, Second Scrub, First GARMENT WORKER/Nurse Coal Washer Time In 01/06/21 12:38:00 01/06/21 12:38:00 01/06/21 12:38:00 Time Out 01/06/21 13:08:00 01/06/21 13:08:00 01/06/21 13:08:00 Procedure Gastric Biopsy, Gastric Biopsy, Gastric Biopsy, Esophageal Biopsy, Esophageal Biopsy, Esophageal Biopsy, Esophageal Dilatation Esophageal Dilatation Esophageal Dilatation Other Attendee Superficial Wound Closed By: Last Modified By: Moira Jensen Rn Mcclintock, Molly, Moira Sanchez Rn 01/06/21 13:05:47 01/06/21 13:05:47 01/06/21 13:05:47 [facility] Endo - Case Attendance Audit 01/06/21 13:05:47 Early Head Start Teacher: [id number] Modifier: [id number] <+> Time Out 1 <*> Procedure [...] Biopsy, Esophageal Biopsy, Esophageal Dilatation 01/06/21 12:48:41 Early Head Start Teacher: [id number] Modifier: [id number] <*> Procedure Colonoscopy, Esophagogastroduodenoscopy, Gastric Biopsy, Esophageal Biopsy 2 <*> Procedure Gastric Biopsy, Esophageal Biopsy 3 <*> Procedure Gastric Biopsy, Esophageal Biopsy 4 <*> Procedure Gastric Biopsy, Esophageal Biopsy 5 <*> Procedure Gastric Biopsy, Esophageal Biopsy 6 <*> Procedure Gastric Biopsy, Esophageal Biopsy 01/06/21 12:45:26 Early Head Start Teacher: [id number] Modifier: [id number] <*> Procedure Colonoscopy, Esophagogastroduodenoscopy, Gastric Biopsy 2 <*> Procedure Gastric Biopsy 3 <*> Procedure Gastric Biopsy 4 <*> Procedure Gastric Biopsy 5 <*> Procedure Gastric Biopsy 6 <*> Procedure Gastric Biopsy 01/06/21 12:44:50 Early Head Start Teacher: [id number] Modifier: [id number] <*> Procedure Colonoscopy, Esophagogastroduodenoscopy <+> 2 Procedure <+> 3 Procedure <+> 4 Procedure <+> 5 Procedure <+> 6 Procedure 01/06/21 12:41:08 Early Head Start Teacher: [id number] Modifier: [id number] <*> Case Attendee LANA HERRMANN MD-ANS 01/06/21 12:40:29 Early Head Start Teacher: [id number] Modifier: [id number] <+> Time In 1 <*> Procedure Colonoscopy, Esophagogastroduodenoscopy <+> 2 Time In <+> 3 Time In <+> 4 Time In <+> 5 Time In <+> 6 Time In 01/06/21 12:31:04 Early Head Start Teacher: [id number] Modifier: [id number] <+> 2 Case Attendee <+> 2 Role Performed <+> 3 Case Attendee <+> 3 Role Performed <+> 4 Case Attendee <+> 4 Role Performed <+> 5 Case Attendee <+> 5 Role Performed <+> 6 Case Attendee <+> 6 Role Performed [facility] Endo - Case times Entry 1 Patient In Room Time 01/06/21 12:38:00 Out Room Time 01/06/21 13:08:00 Anesthesia Start Time 01/06/21 12:38:00 Stop Time 01/06/21 13:08:00 Surgery / Procedure Times Start Time 01/06/21 12:45:00 Stop Time 01/06/21 13:05:00 Last Modified By: Moira Jensen Rn 01/06/21 13:05:33 [facility] Endo - Case times Audit 01/06/21 13:05:33 Early Head Start Teacher: [id number] Modifier: [id number] <+> 1 Out Room Time <+> 1 Stop Time <+> 1 Stop Time 01/06/21 12:47:15 Early Head Start Teacher: [id number] Modifier: [id number] <+> 1 Start Time [facility] Endo - Cultures and Spec Summary Entry 1 Cultrures and Specimens Specimen Ordered: Yes Test(s) Routine/Path-Lab Requested/Final Disposition Last Modified By: Moira Jensen Rn 01/06/21 12:47:42 [facility] Endo - Delays Entry 1 Delay Reason Other, No Delay Duration 0 Minute(s) Last Modified By: Moira Jensen Rn 01/06/21 12:31:14 [facility] Endo - Departure from OR Entry 1 Integumentary Assessment Integumentary WDL Assessment WDL Transfer/Handoff Transfer to PACU Phase I Post-op Transport Stretcher/Gurney Via Patient Transport Moira Jensen Rn Accompanied by Last Modified By: Moira Jensen Rn 01/06/21 12:40:40 [facility] Endo - Departure from OR Audit 01/06/21 12:40:40 Early Head Start Teacher: [id number] Modifier: [id number] <*> Patient Transport Accompanied by Moira Jensen, Rn 1 <-> Handoff Method Bedside/Face to face [facility] Endo - Endoscopy Details Entry 1 Abdomen Procedure Soft, Non-Tender Assessment Procedure Abdomen 01/06/21 12:38:00 Assessment D/T Radio Frequency Ablation Abdominal Pressure Last Modified By: Moira Jensen Rn 01/06/21 12:38:50 [facility] Endo - Fire Risk Assessment Entry 1 Fire Info Surgical Site or 1- Yes Incision Above the Xyphoid Open O2 Source 1- Yes (Mask or Cannula) Available Ignition 1- Yes (ESU, Laser, Light Source) Fire Risk 3 Assessment Score Fire Score Fire Risk Yes Assessment Complete Fire Risk Moira Jensen, Counseling Department Chair Verified By Fire Risk 01/06/21 12:39:00 Assessment Verified Date/Time Fire Risk High Risk Protocol Yes Implemented Standard Fire Yes Safety Precautions Followed Last Modified By: Moira Jensen Rn 01/06/21 12:39:28 [facility] Endo - Fire Risk Assessment Audit 01/06/21 12:39:28 Early Head Start Teacher: [id number] Modifier: [id number] <+> 1 Fire Risk Assessment Complete <+> 1 Fire Risk Assessment Verified Date/Time [facility] Endo - General Case Design Project Manager 1 Case Information OR Endo 03 [facility] Case Level 1 Room Verified Yes Wound Class III - Contaminated Specialty SN Gastroenterology Anesthesia Type General ASA Class 3 Diagnosis Preop Diagnosis dysphagia/screening Postop Same As Preop Yes Postop Diagnosis dysphagia/screening Last Modified By: Moira Jensen Rn 01/06/21 12:39:17 [facility] Endo - General Case Data Audit 01/06/21 12:39:17 Early Head Start Teacher: [id number] Modifier: [id number] <+> 1 ASA Class <+> 1 Postop Same As Preop <+> 1 Preop Diagnosis <+> 1 Postop Diagnosis [facility] Endo - Intraoperative Assessment Entry 1 Valid History / Yes Physical in Chart Preoperative Yes Checklist Reviewed/Evaluated Patient is Latex No Sensitive Level of WDL Consciousness (WDL = Alert, Oriented to Person, Place, and Time) Last Modified By: Moira Jensen Rn 01/06/21 12:31:39 [facility] Endo - Intraoperative Equipment Entry 1 Equipment Intraop Monitoring Electrocardiogram Three lead placement (ECG) Electrode Placement Blood Pressure Arm, left upper Location Pulse Oximeter Hand, right Probe Site Antiembolic Devices Scopes Flexible Endoscopes Gastroscope Used Scope Serial N, K Number/Identificatio n Number Photo/Video Documentation Photo Yes Video No Last Modified By: Moira Jensen Rn 01/06/21 12:41:53 [facility] Endo - Intraoperative Equipment Audit 01/06/21 12:41:53 Early Head Start Teacher: [id number] Modifier: [id number] <*> Photo Yes 1 <*> Video No 1 <*> Electrocardiogram (ECG) Electrode Three lead placement Placement 1 <*> Blood Pressure Location Arm, left upper 1 <*> Pulse Oximeter Probe Site Hand, right 1 <*> Flexible Endoscopes Used Gastroscope 1 <+> Scope Serial Number/Identification Number [facility] Endo - Patient Positioning Entry 1 Procedure [...] Modified By: Moira Jensen Rn 01/06/21 12:48:41 [facility] Endo - Patient Positioning Audit 01/06/21 12:48:41 Early Head Start Teacher: [id number] Modifier: [id number] 1 <*> Procedure Esophagogastroduodenoscopy, Gastric Biopsy, Esophageal Biopsy 01/06/21 12:45:27 Early Head Start Teacher: [id number] Modifier: [id number] 1 <*> Procedure Esophagogastroduodenoscopy, Gastric Biopsy 01/06/21 12:44:50 Early Head Start Teacher: [id number] Modifier: [id number] 1 <*> Procedure Esophagogastroduodenoscopy [facility] Endo - Sign In Entry 1 Patient, Site, Yes Procedure Identified Surgical Consent Yes Confirmed Surgical Site N/A Marked by person performing procedure Airway Hypothermia Risk No Warming Measures No Taken Last Modified By: Moira Jensen Rn 01/06/21 12:31:56 [facility] Endo - Sign Out Entry 1 RN [...] Modified By: Moira Jensen Rn 01/06/21 13:05:40 [facility] Endo - Surgical Procedures Entry 1 Entry [...] Mcclintock, Molly, Lou 01/06/21 13:05:42 01/06/21 13:05:42 [facility] Endo - Surgical Procedures Audit 01/06/21 13:05:42 Early Head Start Teacher: [id number] Modifier: [id number] <+> 3 Stop <+> 4 Stop <+> 5 Stop 01/06/21 13:05:13 Early Head Start Teacher: [id number] Modifier: [id number] 1 <*> Procedure Colonoscopy 1 <*> Start 01/06/21 12:45:00 1 <+> Stop 1 <+> Physician States Cecum Reached 2 <*> Procedure Esophagogastroduodenoscopy 2 <+> Stop 01/06/21 12:48:40 Early Head Start Teacher: [id number] Modifier: [id number] <+> 5 Procedure <+> 5 Primary Procedure <+> 5 Primary Surgeon <+> 5 Specialty <+> 5 Start <+> 5 Wound Class <+> 5 Anesthesia Type 01/06/21 12:47:35 Early Head Start Teacher: [id number] Modifier: [id number] <+> 1 Start <+> 2 Start <+> 3 Start <+> 4 Start 01/06/21 12:45:25 Early Head Start Teacher: [id number] Modifier: [id number] <+> 4 Procedure <+> 4 Primary Procedure <+> 4 Primary Surgeon <+> 4 Specialty <+> 4 Wound Class <+> 4 Anesthesia Type 01/06/21 12:44:49 Early Head Start Teacher: [id number] Modifier: [id number] <+> 3 Procedure <+> 3 Primary Procedure <+> 3 Primary Surgeon <+> 3 Specialty <+> 3 Wound Class <+> 3 Anesthesia Type <+> 3 Additional Procedure Description [facility] Endo - Time Out Entry 1 Procedure [...] Modified By: Moira Jensen Rn 01/06/21 12:48:42 [facility] Endo - Time Out Audit 01/06/21 12:48:42 Early Head Start Teacher: [id number] Modifier: [id number] 1 <*> Procedure to be Performed Colonoscopy, Esophagogastroduodenoscopy, Gastric Biopsy, Esophageal Biopsy 01/06/21 12:45:27 Early Head Start Teacher: [id number] Modifier: [id number] 1 <*> Procedure to be Performed Colonoscopy, Esophagogastroduodenoscopy, Gastric Biopsy 01/06/21 12:44:51 Early Head Start Teacher: [id number] Modifier: [id number] 1 <*> Procedure to be Performed Colonoscopy, Esophagogastroduodenoscopy Case Comments <None> Finalized By: Moira Jensen Rn Document Signatures Signed By: Moira Jensen Rn 01/06/21 13:06 Electronically signed by [employer] [facility] Conversion Slitter Scorer Cut Off Operator Cerner at 02/18/2023 5:01 PM CDT documented in this encounter Plan of Treatment Not on file documented as of this encounter Visit Diagnoses Not on filedocumented in this encounter
--- OUTSIDE RECORDS SUMMARY | 2025-08-15 15:26 | XMS_ITS | Referral Summary ---
Author Organization [employer] ([place], [place], [place], [place]) Address [address] [place] [address] Care Team Providers Care Development Director Name Role Phone Unavailable Primary Care [...] HYDROcodone-elaine taminophen (NORCO) 5-325 mg per tablet [place] 5 mg-325 mg tablet Take 1 tablet [...] on file Insurance MEDICARE PART A B /[facility] Member Subscriber Plan / Payer (Ef fective 2023-Present) Name:Darshana Barr Relation to Subscriber:Self Name:Darshana Barr Payer ID:Not on file Group ID:[id number] Type:Not on file Address: [facility] [id number] [place] [id number]
--- OUTSIDE RECORDS SUMMARY | 2025-08-15 15:26 | XMS_ITS | Encounter Summary ---
Author Organization [facility] [facility] ([place], [place], [place], [place]) Address [address] [place] [address] Care Team Providers Care Trade Specialist Name Role Phone Unavailable Primary Care Provider Unavailabl e Encounter Details Date Type Department Care Team (Late st Contact Info) Description 10/17/2020 Transcribed Document [facility] [place] [facility] [place] [address] ProviderDarrell MD [address] [place] [id number] Social History Tobacco Use Types Packs/Day [...] Darrell Flores MD - 10/17/2020 11:07 PM STATUS CONTROLLER [facility] [address] JAYCOB FERMINMARY KATE SUANDERS :1965 Visit Time:10/17/2020 Your Visit Summary Your [...] with new or worsening symptoms. Where: [address] [facility] [address] [place] [address] Business (1) Follow Up with REYES BRONSON When Within 2 to 3 days Where: [address], [address] [place] [address] [facility] (1) Allergies Tylenol with Codeine (Vomiting, Nausea, Chest pain) penicillin (Unknown) Immunizations This Visit No Immunizations Found Medications What How Much When Instructions Next Dose acetaminophen-hydrocodone ([place] 7.5 mg-325 mg oral tablet) 1 Tablet(s) [...] range between ( 0.0 and 7.0 ) Stewart #: 0.83 K/uL -- Normal range between ( 0.16 and 1.00 ) Eos #: 0.01 x10(3)/uL -- Normal range between ( 0.00 and 0.80 ) Stewart %: 4.3 % -- Normal range between [...] these instructions at home: Medicines ??? Take gfct-xqu-mgxucek and prescription medicines only as told by [...] and water are not available, use hand varnish finisher. Contact a health care provider if: ??? [...] 10/21/2006 Document Revised: 06/18/2019 Document Reviewed: 06/18/2019 [employer] Patient Education ?? 2020 [employer] Emergency Awareness and Preventative Care STROKE [...] Assistance with quitting is available by contacting 0-625-CGPDNOW. This is a free resource providing counseling, support, and referral. Or you may contact your personal physician. [employer] Suicide Prevention Lifeline: The National Suicide Prevention [...] was given the opportunity to ask questions. Patient/Status Controller Name: Patient/Status Controller Signature: Relationship to Patient: Clinician/Hospital Status Controller Signature: Please Provide a Telephone Number Where You Can Be Reached: Is it Permissible To Leave a Message? Date: documented in this encounter Plan of Treatment Not on file documented as of this encounter Visit Diagnoses Not on filedocumented in this encounter
--- OUTSIDE RECORDS SUMMARY | 2025-08-15 15:26 | XMS_ITS | Encounter Summary ---
Author Organization [employer] ([place], [place], [place], [place]) Address [address] [place] [address] Care Team Providers Care Punch Operator Name Role Phone Unavailable Primary Care Provider Unavailabl e Encounter Details Date Type Department Care Team (Late st Contact Info) Description 09/24/2019 Transcribed Document [facility] [place] [facility] [place] [address] Darrell Flores MD [address] [place] [phone] Social History Tobacco Use Types Packs/Day Years Used Date Smoking Tobacco: Never Assessed Comments Unknown Sex and Gender Information Value Date Recorded Sex Assigned at Not on file Legal Sex Female 6:16 PM CDT Gender Identity Not on file Sexual Orientation Not on file documented as of this encounter Miscellaneous Notes * Cerner Conversion Note - Darrell Flores MD - 09/24/2019 11:59 AM ANODIZE MACHINE OPERATOR DATE OF PROCEDURE: 09/24/2019 SURGEON: Pepe Krishna [...] to continue with the same plan. 1. Hamer 7.5/325 three times a day. 2. Lyrica 100 mg 3 times a day. 3. Robaxin 750 mg 3 times a day. 4. Movantik 25 mg 1 a day. 5. I am going to see the patient after 2 to 4 weeks to re-evaluate her. /[id number] Pepe Krishna MD, BLAKE Pain Certified EN/MIRIAN / EN / MODL /[id number] Electronically signed by [employer], [facility] Conversion Welder First Class Cerner at 02/18/2023 5:03 PM CDT documented in this encounter Plan of Treatment Not on file documented as of this encounter Visit Diagnoses Not on filedocumented in this encounter
--- OUTSIDE RECORDS SUMMARY | 2025-08-15 15:26 | XMS_ITS | Encounter Summary ---
Author Organization [employer] ([place], [place], [place], [place]) Address [address] [place] [address] Care Team Providers Care Geological Aide Name Role Phone Unavailable Primary Care Provider Unavailabl e Encounter Details Date Type Department Care Team (Late st Contact Info) Description 05/11/2019 Transcribed Document [facility] [place] Family [place] [facility] [address] ProviderDarrell MD [address] [place] [id number] Social History Tobacco Use Types Packs/Day Years [...] says that she has been taking her [place] 2-3 times daily as needed. The patient [...] Lyrica 100 mg 3 times daily and [place] 7.5/325 mg 2-3 times daily as needed. [...] to give the patient 7.5/325 mg of [place] 3 times a day consistently with #90 [...]
--- OUTSIDE RECORDS SUMMARY | 2025-08-15 15:26 | XMS_ITS | Encounter Summary ---
Author Organization [employer] ([place], [place], [place], [place]) Address [address] [place] [address] Care Team Providers Care Oil And Gas Specialist Name Role Phone Unavailable Primary Care Provider Unavailabl e Encounter Details Date Type Department Care Team (Late st Contact Info) Description 09/17/2019 Transcribed Document [facility] [place] Family Medicine [facility] [place] [address] ProviderDarrell MD [address] [place] [phone] Social History Tobacco Use Types Packs/Day Years Used Date Smoking Tobacco: Never Assessed Comments Unknown Sex and Gender Information Value Date Recorded Sex Assigned at Not on file Legal Sex Female 6:16 PM CDT Gender Identity Not on file Sexual Orientation Not on file documented as of this encounter Miscellaneous Notes * Cerner Conversion Note - Historical ProviderMD - 09/17/2019 1:43 PM TANNING DRUM OPERATOR DATE OF ADMISSION: 09/17/2019 HISTORY: This is [...] 1 to 2 weeks to re-evaluate her. /[id number] Pepe Krishna MD, BLAKE Pain Certified EN/MIRIAN / EN / MODL CC: Janes Mason M.D. documented in this encounter Plan of Treatment Not on file documented as of this encounter Visit Diagnoses Not on filedocumented in this encounter
--- NOTE | 2025-08-15 15:54 | XR_ITS ---
PROCEDURE INFORMATION: Exam: XR Chest Exam date and time: 08/15/2025 4:06 PM Age: 60 years old Clinical indication: Other: Eval for pna TECHNIQUE: Imaging protocol: Radiologic exam of the chest. Views: 1 view. COMPARISON: CR XR CHEST PORTABLE 01/05/2025 9:22 AM FINDINGS: Lungs: The lungs appear clear. No focal areas of consolidation. Pleural spaces: No pleural effusions. Negative for pneumothorax. Heart/Mediastinum: Cardiac silhouette and pulmonary vasculature are within range of normal. Bones/joints: There is no evidence of acute fracture. Postoperative changes involving the lower cervical spine are present. IMPRESSION: Negative for an acute cardiopulmonary abnormality.
--- NOTE | 2025-08-15 15:54 | CT_ITS ---
PROCEDURE INFORMATION: Exam: CT Head Without Contrast Exam date and time: 08/15/2025 4:07 PM Age: 60 years old Clinical indication: Other: Possible seizure TECHNIQUE: Imaging protocol: Computed tomography of the head without contrast. Radiation optimization: All CT scans at this facility use at least one of these dose optimization techniques: automated exposure control; mA and/or kV adjustment per patient size (includes targeted exams where dose is matched to clinical indication); or iterative reconstruction. COMPARISON: MR HEAD/BRAIN WO/W CON 08/19/2023 1:05 PM FINDINGS: Brain: The visualized basilar cisterns are patent. The cortical/white matter interfaces are preserved throughout the brain. There is no evidence of mass, mass effect or midline shift. There is no evidence of acute hemorrhage within the brain parenchyma or the subarachnoid space. The craniocervical junction is within range of normal. No significant white matter lucencies. Cerebral ventricles: The ventricular system is normal in size and distribution. Paranasal sinuses: Morrill frothy secretions are in the left maxillary sinus. Minor mucoperiosteal thickening of the inferior left maxillary sinus. The visualized portions of the sinuses are otherwise clear. Mastoid air cells: The mastoid sinuses are normal. Orbital cavities: The orbits are normal. Teeth: Dental amalgam artifact limits evaluation of adjacent structures. Bones: There is no evidence of acute fracture. Benign hyperostosis frontalis is present. Soft tissues: No soft tissue swelling is identified. IMPRESSION: No acute intracranial abnormality.
--- NOTE | 2025-08-15 16:00 | PC.NURSE ---
while nursing was obtaining iv access pt had a syncopal episode. notified
--- NOTE | 2025-08-15 16:05 | PC.NURSE ---
pts shirt, bra and pants have been placed in belongings bag and labeled
[2025-08-15] MEDS: ONDANSETRON 4MG ODT 4 MG SL (16:45)
--- NOTE | 2025-08-15 16:54 | PC.NURSE ---
meds and blood work delayed due to pt having syncopal episodes and multiple episodes of emesis while attempting to obtain IV access.
--- NOTE | 2025-08-15 16:55 | PC.NURSE ---
while MD was attempting to place an IV by ultrasound, pt had multiple episodes of vomitting.
[2025-08-15] MEDS: diazePAM 10MG/2ML SYRINGE 2 MG IM (16:56)
[2025-08-15] MEDS: ONDANSETRON 4MG/2ML VIAL 4 MG IV (17:11)
[2025-08-15] MEDS: METHYLPREDNISOLONE SOD SUCC 125MG VIAL 125 MG IM (17:12)
[2025-08-15] MEDS: FAMOTIDINE 20MG/2ML VIAL 20 MG IV ×2 (17:12→21:36)
[2025-08-15 17:20] LABS: Hematocrit 41.8 % (37.0-47.0); Hemoglobin 13.8 g/dL (12.2-16.2); Immature Granulocytes % 0.4 %; Mean Corpuscular HGB Conc 33.0 g/dL (31.8-35.4); Mean Corpuscular Hemoglobin 28.7 pg (27.0-31.2); Mean Corpuscular Volume 86.9 fl (81-99); Nucleated Red Blood Cells % 0 %; Platelet Count 357 K/mm3 (142-424); Red Blood Count 4.81 M/mm3 (4.20-5.40); Red Cell Distribution Width-SD 40.9 fL; White Blood Count 18.5 K/mm3 (4.8-10.8)
[2025-08-15 17:31] LABS: Alanine Aminotransferase 22 U/L (12-78); Albumin Level 4.1 g/dl (3.5-5.0); Albumin/Globulin Ratio 1.3 (1.1-1.8); Alkaline Phosphatase 91 U/L (38-126); Anion Gap 13.7 mEq/L (5-15); Aspartate Amino Transferase 26 U/L (14-36); Bilirubin,Total 0.7 mg/dl (0.2-1.3); Blood Urea Nitrogen 12 mg/dl (7-17); Calcium 9.4 mg/dl (8.4-10.2); Carbon Dioxide 25 mmol/L (22.0-30.0); Chloride 103 mmol/L (98-107); Creatinine Clearance Estimated 83 mL/min (50-200); Creatinine,Serum 1.00 mg/dl (0.52-1.04); Estimated Glomerular Filt Rate 57 ml/min (>60); GFR (African American) 69 ML/MIN (>60); Globulin 3.1 g/dL (1.3-3.2); Glucose 139 mg/dl (74-100); Lipase 95 U/L (23-300); Potassium 3.7 mmoL/L (3.5-5.1); Sodium 138 mmol/L (136-145); Total Protein,Serum 7.2 g/dl (6.3-8.2)
[2025-08-15 17:36] LABS: D-Dimer 3.64 ug/mL (0.0-0.5)
[2025-08-15 17:45] LABS: Troponin I < 0.01 ng/ml (0.00-0.034)
--- NOTE | 2025-08-15 17:47 | ECG_ITS ---
APPROVED REPORT Exam: Resting ECG HR:86 bpm ECG Measurements Heart Rate 86 AXES MD 137 P 46 QRSd 90 QRS 27 QT 381 T 6 QTc 424 Conclusion Normal sinus rhythm without acute ST or T wave changes concerning for ischemia Electronically signed by : Yesi Vallejo, 08/16/2025 01:00:03
--- NOTE | 2025-08-15 17:49 | CT_ITS ---
PROCEDURE INFORMATION: Exam: CTA Chest With Contrast Exam date and time: 08/15/2025 6:08 PM Age: 60 years old Clinical indication: Other: Elevated d-dimer TECHNIQUE: Imaging protocol: Computed tomographic angiography of the chest with contrast. Exam focused on the arteries. 3D rendering (Not supervised by radiologist): MIP and/or 3D reconstructed images were created by the technologist. Radiation optimization: All CT scans at this facility use at least one of these dose optimization techniques: automated exposure control; mA and/or kV adjustment per patient size (includes targeted exams where dose is matched to clinical indication); or iterative reconstruction. Contrast material: ISO 370; Contrast volume: 70 ml; Contrast route: INTRAVENOUS (IV); COMPARISON: CT ANGIO CHEST 10/07/2020 11:11 PM FINDINGS: Pulmonary arteries: There is no evidence of filling defects within the pulmonary arterial circulation to suggest pulmonary embolism. Aorta: There is no evidence of an aortic aneurysm. No dissection. Thyroid: There are several nodular hypodensities within the thyroid bilaterally which are not optimally characterized on current exam. This could be further evaluated with thyroid ultrasound on a nonemergent basis when the patient's condition permits. Correlate clinically. Lungs: No focal areas of consolidation. Minor linear marking in the left lower lobe suggest atelectasis or parenchymal scarring. Pleural spaces: There are no pleural effusions. No pneumothorax. Heart: The heart is not enlarged. There is no evidence of pericardial fluid collections. Lymph nodes: Calcified hilar lymph nodes indicate prior granulomatous disease. Diaphragm: A small hiatal hernia is present. Liver: There is diffuse decrease in hepatic/liver parenchymal density involving the visualized liver consistent with fatty infiltration. The liver demonstrates a few punctate calcifications consistent with remote granulomatous organism exposure. Gallbladder and biliary ducts: There has been a cholecystectomy. Adrenal glands: The adrenal glands are normal. Bones/joints: The thoracic spine demonstrates mild degenerative changes at multiple levels. Postoperative changes are incompletely visualized involving the lower cervical spine with anterior fusion. There is no evidence of acute fracture. Soft tissues: No significant soft tissue edema. IMPRESSION: 1. No evidence of pulmonary embolism. 2. Small hiatal hernia. 3. Fatty hepatic infiltration. 4. A few small nonspecific nodular densities in the thyroid bilaterally. This could be further evaluated with thyroid ultrasound on a nonemergent basis as clinically warranted.
[2025-08-15 18:03] LABS: Thyroid Stimulating Hormone 1.97 uIU/mL (0.465-4.68)
[2025-08-15] MEDS: SODIUM CHLORIDE 0.9% 10ML SYR (RAD ONLY) 10 ML IV (18:08)
[2025-08-15] MEDS: 0.9 % SODIUM CHLORIDE 50 ML VIAL IV (18:08)
[2025-08-15] MEDS: IOPAMIDOL-370 (76%);100ML BOTTLE 70 ML IV (18:08)
[2025-08-15 18:09] LABS: Free T4 (Free Thyroxine) 1.58 ng/dl (0.78-2.19)
[2025-08-15 18:39] LABS: Hepatitis C Ab Qual. W/ RFX NEGATIVE (Negative)
[2025-08-15] MEDS: LACTATED RINGERS 1000ML 1,000 ML 999 ML IV (18:41)
[2025-08-15] MEDS: IPRATROPIUM/ALBUTEROL 3 ML NEB 9 ML IH (18:56)
[2025-08-15 20:16] LABS: Troponin I < 0.01 ng/ml (0.00-0.034)
--- NOTE | 2025-08-15 21:10 | PC.NURSE ---
Patient arrived to ICU unit via wheelchair from ED @20:51
--- NOTE | 2025-08-15 21:20 | P.HP_ITS ---
<Statement entered by Armando Roberts MD - 08/16/25 17:38> Rounded on patient after nurse practitioner. Personally examined and interviewed patient. Agree with exam findings and care plan as documented. History of Present Illness *Admission Date: 08/15/25 *Reason for visit:: Rash *History of present illness: This is a very pleasant 60-year-old female with past medical history of asthma, obesity, chronic pain syndrome she reports around 1230 this afternoon sitting on her front porch drinking coffee and noticed that she began itching. She attributed the itching to mosquitoes but states that she looked down and was covered in hives. States that she had significant itching and hives across her back abdomen and upper and lower extremities. She denies any new soaps. Denies any ingestion of new foods or fluid. States that she was prescribed clindamycin and has been on it for 5 days for upper respiratory infection but has had clindamycin in the past without allergic reaction. States that she is allergic to sulfa. Spoke with her about tickborne illnesses. States that she noticed a tick approximately 4 months ago on her left hip. States the tick was very small in nature. Denies any recent red meat ingestion. States that she been weaning herself off of her Lyrica and chronic pain medications but has increased her methocarbamol recently. On the emergency department she required Benadryl, Pepcid for symptomatic control. Developed some shortness of breath as well as mild hypotension with systolic in the 90s requiring 2 doses of IM administration of epinephrine. Despite 2 rounds of IM epi and 2 doses of Benadryl, mild urticaria and hives persisted. After discussion with the ED provider and out of abundance of precaution it was felt the patient would benefit from hospitalization. She is admitted to the hospital service [facility] Disclaimer: The information contained in this section may have been updated after the patient was seen, as this information can be updated by other users. Medical History Viral pneumonia Chronic neck pain Bronchitis Shortness of Breath Cough Pneumonia Febrile illness, acute Body aches Acute dyspnea Allergic rhinitis Dyspnea on exertion Abnormal EEG Fibroids Endometriosis Surgical History H/O breast augmentation History of appendectomy H/O nasal septoplasty Hx of cholecystectomy History of dilation and curettage multiple H/O laparoscopy Family History Other Asthma Coronary artery disease Heart attack Social History (Updated 08/15/25 @ 21:13 by Rosemary Kendrick RN) Smoking Status: Never smoker alcohol intake: former substance use type: denies use current occupational status: other Travel in the last 8 weeks?: None household members: spouse housing: house marital status: caffeine: No Have you lived/traveled outside US in past 30 days?: No Contact w/someone who lives/traveled outside US past 30 days?: No Exposure to someone with infectious disease in past 14 days?: No Do you have a fever (greater than 100.4 F or 38 C)?: No Have you tested positive for COVID-19?: No Exposed to someone with COVID-19 in past 14 days?: No Do you have a sore throat?: No Do you have a cough?: No Do you have any weakness?: No Do you have any diarrhea?: No Are you experiencing any unusual bleeding?: No Do you have any muscle aches/pain?: No Do you have any abdominal pain?: No Are you experiencing loss of taste or smell?: No Other Medical History Have you received the Flu Vaccine for this season: No Have you received the Pneumonia Vaccine: Yes Review of Systems Review of Systems Review of systems:: pertinent systems reviewed and negative unless documented below Review of systems (narrative): Negative except for HPI Meds Home Medications and Allergies Home Medications ?Medication ?Instructions ?Recorded ?Confirmed ?Type hydrocodone 7.5 mg-acetaminophen 1 tab PO TID 07/20/24 08/16/25 History 325 mg tablet pregabalin 50 mg capsule 50 mg PO BIDP PRN Moderate P ain 07/20/24 08/16/25 History (Scale Score 5-6) fluticasone propionate 50 2 spray intranasal DAILY 08/16/25 History mcg/actuation nasal spray,suspension benralizumab 30 mg/mL subcutaneous 30 mg SQ Q8W #1 mL 04/28/25 08/16/25 Rx syringe (Fasenra) albuterol sulfate 90 mcg/actuation 2 puff inhalation Q 6HP PRN 08/16/25 08/16/25 History aerosol inhaler Shortness Of Breath fluoxetine 20 mg capsule 20 mg PO DAILY 08/16/2508/04 History New Prescriptions to Start Prescriptions: Allergies Allergy/AdvReac Type Severity Reaction Status Date / Time Penicillins Allergy Mild Unknown Verified 07/09/25 10:42 allergy reaction Sulfa (Sulfonamide Allergy Hives Verified 07/09/25 10:42 Antibiotics) codeine AdvReac Vomiting Verified 07/09/25 10:42 Exam Data for Last 24 hours Vital signs and Labs for Last 24 Hours: Temp Pulse Resp BP Pulse Ox O2 Del Method 98.1 F 117 H 13 136/70 95 Room Air 08/15/25 21:07 08/15/25 21:07 08/15/25 21:07 08/15/25 21:07 08/15/25 21:07 08/15/25 21:07 Laboratory Results - last 24 hr 08/15/25 17:07: WBC 18.5 H, RBC 4.81, Hgb 13.8, Hct 41.8, MCV 86.9, MCH 28.7, MCHC 33.0, RDW 13.0, Plt Count 357, MPV 8.9, Neut % (Auto) 76.6, Lymph % (Auto) 15.3, [place] % (Auto) 7.6, Eos % (Auto) 0.0 L, Baso % (Auto) 0.1, Neut # (Auto) 14.2 H, Lymph # (Auto) 2.8, [place] # (Auto) 1.4 H, Eos # (Auto) 0.0, Baso # (Auto) 0.0, D-Dimer 3.64 H, Sodium 138, Potassium 3.7, Chloride 103, Carbon Dioxide 25, Anion Gap 13.7, BUN 12, Creatinine 1.00, Estimated Creat Clear 83, Estimated GFR 57 L, Est GFR ( Amer) 69, Glucose 139 H, Calcium 9.4, Total Bilirubin 0.7, AST 26, ALT 22, Alkaline Phosphatase 91, Troponin I < 0.01, Total Protein 7.2, Albumin 4.1, Globulin 3.1, Albumin/Globulin Ratio 1.3, Lipase 95, TSH 1.97, Free T4 1.58, HCV Ab ADRIENNE w/Rflx PCR Qn Negative, HIV Ag/Ab Combo Qual Negative 08/15/25 19:45: Troponin I < 0.01 I & O for Last 24 hours: Intake & Output 08/12/25 08/13/25 08/14/25 08/15/25 23:59 23:59 23:59 23:59 Intake Total 1000 / 1000 Output Total 500 / 500 Balance 500 / 500 Weight 86.545 kg Constitutional Constitutional: no acute distress *Routine HEENT Exam Head: Present normocephalic Eye: Present EOMI and PERRL ENT: Present mucous membranes moist *Routine Neck Exam Neck: Present supple; Absent lymphadenopathy *Routine Respiratory Exam Respiratory: Present CTA bilaterally *Routine Cardiovascular Exam Cardiovascular: Present tachycardia *Routine Abdominal Exam Abdominal: Present soft and normoactive bowel sounds; Absent tenderness *Routine Rectal Exam Rectal:: deferred *Routine Genitalia Exam Genitalia:: deferred *Routine Extremities Exam Extremities: Absent cyanosis, clubbing or edema *Routine Skin Exam Skin: Present warm and rash (Hives noted across arms and lower back.) *Routine Neurological Exam Neurological: Present alert and oriented X3 Assessment and Plan *Assessment and plan (1) Anaphylaxis: Status: Acute Qualifiers: Encounter type: initial encounter Qualified Code(s): T78.2XXA - Anaphylactic shock, unspecified, initial encounter Category: Medical Code(s): T78.2XXA - Anaphylactic shock, unspecified, initial encounter (2) SIRS (systemic inflammatory response syndrome): Status: Acute Category: Medical Code(s): R65.10 - Systemic inflammatory response syndrome (SIRS) of non-infectious origin without acute organ dysfunction (3) Leukocytosis: Status: Acute Qualifiers: Leukocytosis type: other Qualified Code(s): D72.828 - Other elevated white blood cell count Category: Medical Code(s): D72.829 - Elevated white blood cell count, unspecified (4) Chronic pain syndrome: Status: Acute Category: Medical Code(s): G89.4 - Chronic pain syndrome (5) BMI 33.0-33.9,adult: Status: Chronic Category: Medical Code(s): Z68.33 - Body mass index [BMI] 33.0-33.9, adult (6) Obesity: Problem Comment: 7 pound weight gain since last visit, patient attributes it to being sick, taken steroids Status: Chronic Qualifiers: Obesity classification: adult class 2 (BMI 35 - 39.9) Category: Medical Code(s): E66.9 - Obesity, unspecified Plan This is a 60-year-old female who presents with urticarial rash received. She treatment for anaphylaxis requiring multiple doses of IM epinephrine. She is admitted for monitoring for recurrent episodes #Anaphylaxis Unsure of the etiology as patient denies any recent ingestion of new substances. Has been on clindamycin for oral abscess but has tolerated this well in the past. Does recall a tick bite approximately 4 months ago. Denies any current eating of red meat or pork. Will send alpha gal testing (send out) Hold clindamycin. Patient reports only has 1 pill left to take. Continue Solu-Medrol 40 mg IV twice daily, Pepcid 20 mg IV twice daily and oral Benadryl 25 mg every 6 hours Will redosed with IM epinephrine needed Vital signs currently stable at this time. Did have a transient episode of vomiting and hypotension in the emergency is now stable. Sinus tachycardia noted. #SIRS #Leukocytosis Does have evidence of SIRS with leukocytosis, tachycardia but no obvious source of infection. elevated white count of 18. Patient on clindamycin for oral abscess. Broken tooth noted to the right lower jaw but does not appear purulent or to be causing acute sepsis at this time Will defer further antibiotic therapy and monitor trends #Asthma No wheezing noted at this time, not in acute exacerbation. Patient nervous that she might have rhinovirus again. Patient states she had significant episode with rhinovirus in January. Does complain of recent cough and congestion. Will send RPP. #Obesity Complicates all aspects of care #Chronic pain syndrome Patient reports self weaning from [place] and Lyrica. Has increased her home methocarbamol dosing. Continue patient's home dose once reconciled Full code DVT PPx: SCDs Regular diet
[2025-08-15] MEDS: METHYLPREDNISOLONE SOD SUCC 40MG VIAL 40 MG IV (21:23)
[2025-08-15 21:41] LABS: Adenovirus,PCR Not Detected (NotDetected); Chlamydophila Pneumoniae, PCR Not Detected (NotDetected); Coronavirus 19, PCR Not Detected (NotDetected); Coronovirus HKU1,PCR Not Detected (NotDetected); Influenza A, PCR Not Detected (NotDetected); Influenza AH1, 2009 Not Detected (NotDetected); Influenza AH1, PCR Not Detected (NotDetected); Influenza AH3,PCR Not Detected (NotDetected); Influenza B, PCR Not Detected (NotDetected); Mycoplasma Pneumoniae, PCR Not Detected (NotDetected); Parainfluenza 1, PCR Not Detected (NotDetected); Parainfluenza 2, PCR Not Detected (NotDetected); Parainfluenza 3, PCR Not Detected (NotDetected); Parainfluenza 4, PCR Not Detected (NotDetected)
[2025-08-15 21:41] LABS: Microscopic, Urine URINE MICROSCOPIC (MICROSCOPIC)
[2025-08-15 21:44] LABS: Bilirubin,Urine Negative (Negative); Color,Urine YELLOW (Yellow); Glucose,Urine (UA) Negative (Negative); Ketones,Urine TRACE (Negative); Leukocyte Esterase,Urine Negative (Negative); PH,Urine 6.0 (5.0-8.5); Protein,Urine Negative (Negative); Specific Gravity, Urine 1.015 (1.005-1.030); Urobilinogen,Urine 0.2 EU/dl (0.2)
[2025-08-15 21:54] LABS: Calcium Oxalate Crystals,Urine Trace /lpf
[2025-08-15 21:55] LABS: Bacteria,Urine Trace /lpf; Squamous Epithelial Cell,Urine Occasional #/hpf (0-5); WBC,Urine Occasional #/hpf (0-3)
[2025-08-15] MEDS: diazePAM 10MG/2ML SYRINGE 2 MG IV (23:01)
[2025-08-15 23:56] LABS: Troponin I < 0.01 ng/ml (0.00-0.034)
[2025-08-16] VITALS (14 sets, daily range): BP systolic 102–129; BP diastolic 54–84; PULSE 86–114; RESP 14–20; TEMP 36.7–36.8; O2SAT 92–97; BMI 32.5
[2025-08-16] MEDS: diazePAM 10MG/2ML SYRINGE 2 MG IV (02:45)
[2025-08-16 05:55] LABS: Hematocrit 38.4 % (37.0-47.0); Immature Granulocytes % 0.5 %; Mean Corpuscular HGB Conc 32.3 g/dL (31.8-35.4); Mean Corpuscular Hemoglobin 28.5 pg (27.0-31.2); Mean Corpuscular Volume 88.3 fl (81-99); Nucleated Red Blood Cells % 0 %; Platelet Count 285 K/mm3 (142-424); Red Blood Count 4.35 M/mm3 (4.20-5.40); Red Cell Distribution Width-SD 42.3 fL; White Blood Count 19.1 K/mm3 (4.8-10.8)
[2025-08-16 05:57] LABS: Chloride 103 mmol/L (98-107); Potassium 4.1 mmoL/L (3.5-5.1); Sodium 136 mmol/L (136-145)
[2025-08-16 06:00] LABS: Anion Gap 14.1 mEq/L (5-15); Blood Urea Nitrogen 11 mg/dl (7-17); Carbon Dioxide 23 mmol/L (22.0-30.0); Creatinine Clearance Estimated 120 mL/min (50-200); Creatinine,Serum 0.70 mg/dl (0.52-1.04); Estimated Glomerular Filt Rate 86 ml/min (>60); GFR (African American) 104 ML/MIN (>60); Glucose 197 mg/dl (74-100)
[2025-08-16 06:01] LABS: Calcium 9.1 mg/dl (8.4-10.2)
[2025-08-16 06:12] LABS: Hemoglobin 12.4 g/dL (12.2-16.2)
[2025-08-16] MEDS: METHYLPREDNISOLONE SOD SUCC 40MG VIAL 40 MG IV ×2 (08:03→20:31)
[2025-08-16] MEDS: FAMOTIDINE 20MG/2ML VIAL 20 MG IV ×2 (08:06→20:32)
[2025-08-16] MEDS: SODIUM CHLORIDE 0.9% 10ML VIAL 8 ML IV ×2 (08:06→20:32)
--- NOTE | 2025-08-16 08:08 | HMH.PHAINT1 ---
Pharmacy Intervention Comments: MEDICATION RECONCILIATION COMPLETED ON PATIENT USING EXTERNAL FILL HISTORY FROM PHARMACY AND BLAKE REPORT. -BEBE KOHLI, URBANOD
[2025-08-16] MEDS: LORATADINE 10MG TABLET 20 MG PO (10:22)
[2025-08-16] MEDS: AQUAPHOR (PETROLATUM) OINT 85GM TP (10:22)
--- NOTE | 2025-08-16 11:50 | PC.NURSE ---
Patient requesting a shower for her rash/itching. Called HS and requested a M/S bed, states she will move her soon.
[2025-08-16] MEDS: diazePAM 5MG TABLET 5 MG PO (12:33)
--- NOTE | 2025-08-16 13:15 | PC.NURSE ---
patient left ICU to go to [facility] room [id number] @0010
--- NOTE | 2025-08-16 13:20 | PC.NURSE ---
arrived by w/c from ICU
--- NOTE | 2025-08-16 13:34 | PC.NURSE ---
upon transition to the [facility] floor pt requested to get in the shower. This SRNA assisted patient to getting set up for a shower. Patient is currently in the shower and staff is aware.
--- NOTE | 2025-08-16 13:48 | EXP.ACUTE.PN ---
Subjective *Date: 08/16/25 *Time: 13:48 Interval history: Having a rash again this morning. Alpha-gal sent. Initiate long-acting antihistamine. Stable on room air. Will monitor for 24 hours on long-acting antihistamine to make sure she is on a regimen that she can tolerate at home without signs of anaphylaxis or respiratory compromise. Tolerating p.o. intake. No nausea or vomiting today. Medical Exam Vital signs and Labs for Last 24 Hours: Vital Signs Temp Pulse Pulse Resp BP BP Pulse Ox 08/16/25 12:00 98.3 F 109 H 16 120/84 96 08/16/25 10:56 08/16/25 09:54 86 18 111/78 92 L 08/16/25 09:24 97 H 08/16/25 08:57 08/16/25 08:00 98.1 F 99 H 16 116/66 95 08/16/25 07:52 95 08/16/25 07:51 94 H 18 124/66 95 08/16/25 07:00 08/16/25 06:00 96 H 14 111/60 96 08/16/25 05:00 08/16/25 04:00 98.1 F 102 H 16 105/58 L 95 08/16/25 03:00 98.1 F 114 H 20 121/73 97 08/16/25 03:00 08/16/25 02:00 96 H 15 108/70 L 94 L 08/16/25 01:00 08/16/25 01:00 101 H 16 105/63 L 94 L 08/16/25 00:00 98.1 F 112 H 16 102/54 L 96 08/15/25 23:00 08/15/25 22:15 98 H 17 112/60 95 08/15/25 22:02 95 08/15/25 22:00 107 H 14 112/60 95 08/15/25 21:07 98.1 F 117 H 13 136/70 95 08/15/25 21:00 08/15/25 20:55 98.0 F 109 H 14 136/70 08/15/25 20:01 107 H 14 95 08/15/25 20:01 122/64 08/15/25 20:00 86 14 96 08/15/25 19:45 98 H 96 08/15/25 19:30 118/75 08/15/25 19:15 100 H 98 08/15/25 19:07 91 H 08/15/25 19:07 96 H 08/15/25 19:00 91 H 100 08/15/25 19:00 129/56 L 08/15/25 18:00 98 H 17 124/67 99 08/15/25 17:51 86 13 135/65 100 08/15/25 17:30 96 H 14 135/65 96 08/15/25 17:00 91 H 14 96 08/15/25 16:00 11 L 85/57 L 08/15/25 15:40 108 H 113/79 95 08/15/25 15:30 139 H 113/79 95 08/15/25 15:03 98.3 F 94 H 16 130/77 96 O2 Del Method 08/16/25 12:00 Room Air 08/16/25 10:56 Room Air 08/16/25 09:54 Room Air 08/16/25 09:24 08/16/25 08:57 Room Air 08/16/25 08:00 Room Air 08/16/25 07:52 Room Air 08/16/25 07:51 Room Air 08/16/25 07:00 Room Air 08/16/25 06:00 Room Air 08/16/25 05:00 Room Air 08/16/25 04:00 Room Air 08/16/25 03:00 Room Air 08/16/25 03:00 Room Air 08/16/25 02:00 Room Air 08/16/25 01:00 Room Air 08/16/25 01:00 Room Air 08/16/25 00:00 Room Air 08/15/25 23:00 Room Air 08/15/25 22:15 08/15/25 22:02 Room Air 08/15/25 22:00 Room Air 08/15/25 21:07 Room Air 08/15/25 21:00 Room Air 08/15/25 20:55 Room Air 08/15/25 20:01 08/15/25 20:01 08/15/25 20:00 08/15/25 19:45 08/15/25 19:30 08/15/25 19:15 08/15/25 19:07 08/15/25 19:07 08/15/25 19:00 Room Air 08/15/25 19:00 08/15/25 18:00 Room Air 08/15/25 17:51 Room Air 08/15/25 17:30 Room Air 08/15/25 17:00 08/15/25 16:00 Room Air 08/15/25 15:40 Room Air 08/15/25 15:30 Room Air 08/15/25 15:03 Room Air Intake and Output 08/15/25 08/16/25 08/16/25 23:59 07:59 15:59 Intake Total 1000 / 1000 120 / 540 420 / 540 Output Total 500 / 500 240 / 240 Balance 500 / 500 120 / 300 180 / 300 Intake: Intake, Oral Amount 120 / 540 420 / 540 Intake, Total IV Amount 1000 / 1000 Lactated Ringers 1000ML 1,000 1000 / 1000 ml @ 999 mls/hr IV .Q1H1M ONE Rx#:[id number] Output: Output, Urine Amount 500 / 500 240 / 240 Other: Number of Unmeasured Voids 0 1 Weight 86.545 kg 86.545 kg Patient Weight 08/16/25 23:59 Weight 86.545 kg Laboratory Results - last 24 hr 08/15/25 15:51: Chlamy pneumoniae PCR Not detected, Adenovirus (PCR) Not detected, B. pertussis DNA (PCR) Not detected, Coronavirus OC43 (PCR) Not detected, Coronavirus HKU1 (PCR) Not detected, Coronavirus 229E (PCR) Not detected, SARS-CoV-2 (PCR) Not detected, Coronavirus NL63 (PCR) Not detected, Human Metapneumovir PCR Not detected, Influenza A (H1) PCR Not detected, Influ A (H1N1/09) PCR Not detected, Influenza A (H3) PCR Not detected, Influenza Type A (PCR) Not detected, Influenza Type B (PCR) Not detected, M. pneumoniae (PCR) Not detected, Parainfluenza 1 (PCR) Not detected, Parainfluenza 2 (PCR) Not detected, Parainfluenza 3 (PCR) Not detected, Parainfluenza 4 (PCR) Not detected, RSV (PCR) Not detected, Entero/Rhino (PCR) Not detected 08/15/25 17:07: WBC 18.5 H, RBC 4.81, Hgb 13.8, Hct 41.8, MCV 86.9, MCH 28.7, MCHC 33.0, RDW 13.0, Plt Count 357, MPV 8.9, Neut % (Auto) 76.6, Lymph % (Auto) 15.3, [place] % (Auto) 7.6, Eos % (Auto) 0.0 L, Baso % (Auto) 0.1, Neut # (Auto) 14.2 H, Lymph # (Auto) 2.8, [place] # (Auto) 1.4 H, Eos # (Auto) 0.0, Baso # (Auto) 0.0, D-Dimer 3.64 H, Sodium 138, Potassium 3.7, Chloride 103, Carbon Dioxide 25, Anion Gap 13.7, BUN 12, Creatinine 1.00, Estimated Creat Clear 83, Estimated GFR 57 L, Est GFR ( Amer) 69, Glucose 139 H, Calcium 9.4, Total Bilirubin 0.7, AST 26, ALT 22, Alkaline Phosphatase 91, Troponin I < 0.01, Total Protein 7.2, Albumin 4.1, Globulin 3.1, Albumin/Globulin Ratio 1.3, Lipase 95, TSH 1.97, Free T4 1.58, HCV Ab ADRIENNE w/Rflx PCR Qn Negative, HIV Ag/Ab Combo Qual Negative 08/15/25 19:45: Troponin I < 0.01 08/15/25 21:20: Urine Color Yellow, Urine Appearance Clear, Urine pH 6.0, Ur Specific [place] 1.015, Urine Protein Negative, Urine Glucose (UA) Negative, Urine Ketones Trace, Urine Blood Negative, Urine Nitrate Negative, Urine Bilirubin Negative, Urine Urobilinogen 0.2, Ur Leukocyte Esterase Negative, Urine RBC None, Urine WBC Occasional, Ur Squamous Epith Cells Occasional, Calcium Oxalate Crystal Trace, Urine Bacteria Trace 08/15/25 23:24: Troponin I < 0.01 08/16/25 05:43: WBC 19.1 H, RBC 4.35, Hgb 12.4 D, Hct 38.4, MCV 88.3, MCH 28.5, MCHC 32.3, RDW 12.9, Plt Count 285, MPV 9.3, Neut % (Auto) 91.9 H, Lymph % (Auto) 3.6 L, [place] % (Auto) 3.9, Eos % (Auto) 0.0 L, Baso % (Auto) 0.1, Neut # (Auto) 17.5 H, Lymph # (Auto) 0.7, [place] # (Auto) 0.8, Eos # (Auto) 0.0, Baso # (Auto) 0.0, Sodium 136, Potassium 4.1, Chloride 103, Carbon Dioxide 23, Anion Gap 14.1, BUN 11, Creatinine 0.70 D, Estimated Creat Clear 120, Estimated GFR 86, Est GFR ( Amer) 104 D, Glucose 197 H D, Calcium 9.1 I & O for Labs for Last 24 Hours: Intake & Output 08/13/25 08/14/25 08/15/25 08/16/25 23:59 23:59 23:59 23:59 Intake Total 1000 / 1000 540 / 540 Output Total 500 / 500 240 / 240 Balance 500 / 500 300 / 300 Weight 86.545 kg 86.545 kg Constitutional: Present no acute distress, obese and cooperative Head: Present atraumatic and normocephalic ENT: Present normal exam Respiratory: Absent prolonged expiratory phase, rhonchi, wheezes or crackles Cardiac: Present Reg Rate and Rhythm GI: Present soft; Absent distention or tenderness Extremities: Present normal inspection Skin: Present intact; Absent erythema or urticaria Comment:: No rash on morning rounds. Had a rash earlier this morning that has gotten better with Pepcid and Benadryl Neuro: Present Grossly Intact, alert, awake, oriented x 3 and moves all extremities Assessment and Plan *Assessment and plan (1) Anaphylaxis: Status: Acute Qualifiers: Encounter type: initial encounter Qualified Code(s): T78.2XXA - Anaphylactic shock, unspecified, initial encounter Category: Medical Code(s): T78.2XXA - Anaphylactic shock, unspecified, initial encounter (2) SIRS (systemic inflammatory response syndrome): Status: Acute Category: Medical Code(s): R65.10 - Systemic inflammatory response syndrome (SIRS) of non-infectious origin without acute organ dysfunction (3) Leukocytosis: Status: Acute Qualifiers: Leukocytosis type: other Qualified Code(s): D72.828 - Other elevated white blood cell count Category: Medical Code(s): D72.829 - Elevated white blood cell count, unspecified (4) Chronic pain syndrome: Status: Acute Category: Medical Code(s): G89.4 - Chronic pain syndrome (5) BMI 33.0-33.9,adult: Status: Chronic Category: Medical Code(s): Z68.33 - Body mass index [BMI] 33.0-33.9, adult (6) Obesity: Problem Comment: 7 pound weight gain since last visit, patient attributes it to being sick, taken steroids Status: Chronic Qualifiers: Obesity classification: adult class 2 (BMI 35 - 39.9) Category: Medical Code(s): E66.9 - Obesity, unspecified Plan This is a 60-year-old female who presents with urticarial rash received. She treatment for anaphylaxis requiring multiple doses of IM epinephrine. She is admitted for monitoring for recurrent episodes. Initiating long-acting regimen. Monitoring for 24 more hours. Anticipate discharge tomorrow. Problems addressed as follows: #Anaphylaxis Unsure of the etiology as patient denies any recent ingestion of new substances. Has been on clindamycin for oral abscess but has tolerated this well in the past. Does recall a tick bite approximately 4 months ago. Denies any current eating of red meat or pork. Alpha gal test pending Continue Solu-Medrol 40 mg IV twice daily, Pepcid 20 mg IV twice daily; Benadryl every 6 hours as needed Initiate Claritin 10 mg daily Repeat labs this morning with white count of 19, hemoglobin 12.4. Kidney function normal with BUN 11, creatinine 0.7. Repeat CBC, CMP, magnesium ordered for the morning #SIRS #Leukocytosis Leukocytosis still unexplained but improving. No other signs of SIRS this morning. Will hold on further antibiotics at this time. Reevaluate in the morning or if develops other symptoms of infection #Asthma No wheezing noted at this time, not in acute exacerbation. Stable on room air Patient nervous that she might have rhinovirus again. Patient states she had significant episode with rhinovirus in January. Negative respiratory panel #Obesity: complicates all aspects of care #Chronic pain syndrome Patient reports self weaning from [place] and Lyrica. Has increased her home methocarbamol dosing. Will use Tylenol and ibuprofen as needed holding opiates and Lyrica per her preference #Depression/anxiety: Continue Prozac 20 mg daily Full code DVT PPx: SCDs Regular diet
--- NOTE | 2025-08-16 23:53 | PC.NURSE ---
While checking patient, patients states Im broke out again . When ask location, patient holds up left arm and a small dime size red rash is noted near her wrist. Mau Hodgson notified. PO PRN med given.
--- NOTE | 2025-08-17 03:56 | PC.NURSE ---
Alert and oriented. Patient complained of rash, treated per mar. Patient has rested since medication administration. Room air. No other complaints. Call light in reach.
[2025-08-17 04:00] VITALS: BP 125/66; PULSE 82; RESP 16; TEMP 36.6; O2SAT 96; BMI 32.5
[2025-08-17 06:26] LABS: Chloride 103 mmol/L (98-107)
[2025-08-17 06:27] LABS: Potassium 4.4 mmoL/L (3.5-5.1); Sodium 139 mmol/L (136-145)
[2025-08-17 06:29] LABS: Hematocrit 35.3 % (37.0-47.0); Hemoglobin 11.3 g/dL (12.2-16.2); Immature Granulocytes % 0.6 %; Mean Corpuscular HGB Conc 32.0 g/dL (31.8-35.4); Mean Corpuscular Hemoglobin 28.3 pg (27.0-31.2); Mean Corpuscular Volume 88.3 fl (81-99); Nucleated Red Blood Cells % 0 %; Platelet Count 306 K/mm3 (142-424); Red Blood Count 4.00 M/mm3 (4.20-5.40); Red Cell Distribution Width-SD 42.7 fL; White Blood Count 19.7 K/mm3 (4.8-10.8)
[2025-08-17 06:30] LABS: Anion Gap 12.4 mEq/L (5-15); Blood Urea Nitrogen 13 mg/dl (7-17); Calcium 8.8 mg/dl (8.4-10.2); Carbon Dioxide 28 mmol/L (22.0-30.0); Creatinine Clearance Estimated 120 mL/min (50-200); Creatinine,Serum 0.70 mg/dl (0.52-1.04); Estimated Glomerular Filt Rate 86 ml/min (>60); GFR (African American) 104 ML/MIN (>60); Glucose 144 mg/dl (74-100)
[2025-08-17 08:00] VITALS: BP 123/65; PULSE 87; RESP 18; TEMP 36.6; O2SAT 95
[2025-08-17] MEDS: FLUTICASONE PROP 50MCG NASAL SPRAY 16GM 2 SPRAY NS (08:55)
[2025-08-17] MEDS: LORATADINE 10MG TABLET 10 MG PO (08:55)
[2025-08-17] MEDS: METHYLPREDNISOLONE SOD SUCC 40MG VIAL 40 MG IV (08:55)
[2025-08-17] MEDS: FLUOXETINE 20MG CAPSULE 20 MG PO (08:56)
[2025-08-17] MEDS: FAMOTIDINE 20MG TABLET 20 MG PO (08:56)
--- NOTE | 2025-08-17 09:29 | EXP.PULM.CON ---
History of Present Illness History of present illness: Ms. Barr is a 60-year-old female history of asthma on Fasenra presented to the ER complaining of diffuse erythematous rash with itching. [facility] Disclaimer: The information contained in this section may have been updated after the patient was seen, as this information can be updated by other users. Medical History Viral pneumonia Chronic neck pain Bronchitis Shortness of Breath Cough Pneumonia Febrile illness, acute Body aches Acute dyspnea Allergic rhinitis Dyspnea on exertion Abnormal EEG Fibroids Endometriosis Surgical History H/O breast augmentation History of appendectomy H/O nasal septoplasty Hx of cholecystectomy History of dilation and curettage multiple H/O laparoscopy Family History Other Asthma Coronary artery disease Heart attack Social History (Updated 08/15/25 @ 21:13 by Rosemary Kendrick RN) Smoking Status: Never smoker alcohol intake: former substance use type: denies use current occupational status: other Travel in the last 8 weeks?: None household members: spouse housing: house marital status: caffeine: No Have you lived/traveled outside [place] in past 30 days?: No Contact w/someone who lives/traveled outside US past 30 days?: No Exposure to someone with infectious disease in past 14 days?: No Do you have a fever (greater than 100.4 F or 38 C)?: No Have you tested positive for COVID-19?: No Exposed to someone with COVID-19 in past 14 days?: No Do you have a sore throat?: No Do you have a cough?: No Do you have any weakness?: No Do you have any diarrhea?: No Are you experiencing any unusual bleeding?: No Do you have any muscle aches/pain?: No Do you have any abdominal pain?: No Are you experiencing loss of taste or smell?: No Review of Systems Constitutional Constitutional: Denies anorexia, Denies body ache(s) and Denies fatigue Eyes Eyes: Denies eye discharge, Denies dry eyes, Denies irritation and Denies itchy eyes ENT Ears, Nose, Mouth, and Throat: Denies epistaxis, Denies facial pain, Reports hoarseness, Denies lip swelling and Denies throat swelling *Cardiovascular Cardiovascular: Reports dyspnea and Reports dyspnea on exertion *Respiratory Respiratory: Denies change in phlegm color, Reports chest congestion, Reports cough, Reports dyspnea, Reports dyspnea on exertion, Denies excessive phlegm production, Denies hemoptysis, Denies pain on inspiration, Denies pain with cough and Reports wheezing *Gastrointestinal Gastrointestinal: Denies abdominal pain, Denies belching and Denies cramping *Musculoskeletal Musculoskeletal: Reports back pain, Reports myalgias and Reports other (No small joint swelling or Pain) Psychiatric Psychiatric: Denies homicidal ideation and Denies suicidal ideation Endocrine Endocrine: Denies fatigue and Denies heat intolerance Hematologic/Lymphatic Hematologic/Lymphatic: Denies easy bleeding and Denies lymphadenopathy Allergic/Immunologic Allergic/Immunologic: Denies itchy eyes, Denies lip swelling, Denies throat swelling and Reports wheezing Pulmonology Exam Inpatient Vital signs and Labs for Last 24 Hours: Temp Pulse Resp BP Pulse Ox O2 Del Method 97.9 F 82 16 125/66 96 Room Air 08/17/25 04:00 08/17/25 04:00 08/17/25 04:00 08/17/25 04:00 08/17/25 04:00 08/17/25 06:48 Laboratory Results - last 24 hr 08/17/25 05:57: WBC 19.7 H, RBC 4.00 L, Hgb 11.3 L, Hct 35.3 L, MCV 88.3, MCH 28.3, MCHC 32.0, RDW 13.2, Plt Count 306, MPV 9.5, Neut % (Auto) 87.7 H, Lymph % (Auto) 6.2 L, [place] % (Auto) 5.3, Eos % (Auto) 0.0 L, Baso % (Auto) 0.2, Neut # (Auto) 17.3 H, Lymph # (Auto) 1.2, [place] # (Auto) 1.1 H, Eos # (Auto) 0.0, Baso # (Auto) 0.0, Sodium 139, Potassium 4.4, Chloride 103, Carbon Dioxide 28, Anion Gap 12.4, BUN 13, Creatinine 0.70, Estimated Creat Clear 120, Estimated GFR 86, Est GFR ( Amer) 104, Glucose 144 H, Calcium 8.8 I & O for Labs for Last 24 Hours: Intake & Output 08/14/25 08/15/25 08/16/25 08/17/25 23:59 23:59 23:59 23:59 Intake Total 1000 / 1000 1320 / 1320 Output Total 500 / 500 240 / 240 Balance 500 / 500 1080 / 1080 Weight 190 lb 12.8 oz 190 lb 12.785 oz 190 lb 12.714 oz Microbiology Reports for the Last 24 Hours: Microbiology 08/15/25 17:07 Blood Blood Culture - Preliminary NO GROWTH AFTER 24 HOURS 08/15/25 17:00 Blood Blood Culture - Preliminary NO GROWTH AFTER 24 HOURS Constitutional: Present mild distress Head: Present normocephalic and atraumatic ENT: Present normal exam, normal oropharynx and mucous membranes moist Neck: Present normal inspection and full ROM Respiratory: Present able to speak in complete sentences; Absent prolonged expiratory phase, respiratory distress, wheezes, crackles or diminished air movement Cardiac: Present S1/S2, Tachycardia and radial pulses present GI: Present soft and distention; Absent tenderness or guarding Rectal (female): Present deferred (female): Present deferred Skin: Present intact; Absent cyanosis or jaundice Neuro: Present alert, awake and oriented x 3 Extremities: Present normal inspection; Absent clubbing or cyanosis Psychiatric: Present normal affect and cooperative Meds Home Medications and Allergies Home Medications ?Medication ?Instructions ?Recorded ?Confirmed ?Type hydrocodone 7.5 mg-acetaminophen 1 tab PO TID 07/20/24 08/16/25 History 325 mg tablet pregabalin 50 mg capsule 50 mg PO BIDP PRN Moderate Pain 07/20/24 08/16/25 History (Scale Score 5-6) fluticasone propionate 50 2 spray intranasal DAILY 10/22/24 08/16/25 History mcg/actuation nasal spray,suspension benralizumab 30 mg/mL subcutaneous 30 mg SQ Q8W #1 mL 04/28/25 08/16/25 Rx syringe (Fasenra) albuterol sulfate 90 mcg/actuation 2 puff inhalation Q6HP PRN 08/16/25 08/16/25 History aerosol inhaler Shortness Of Breath fluoxetine 20 mg capsule 20 mg PO DAILY 08/16/25 08/16/25 History diphenhydramine HCl 25 mg capsule 25 mg PO Q6HP PRN Itching #30 caps 08/17/25 Rx epinephrine 0.3 mg/0.3 mL 0.3 mg (0.3 mL) IM ONCE PRN 08/17/25 Rx injection, auto-injector (EpiPen) anaphylaxis #1 ea famotidine 20 mg tablet 20 mg PO BID 7 days #14 tabs 08/17/25 Rx fexofenadine 180 mg tablet 180 mg PO DAILY #30 tabs 08/17/25 Rx (Gilda Allergy) New Prescriptions to Start Prescriptions: diphenhydramine HCl Armando Roberts epinephrine [EpiPen] Armando Roberts famotidine Armando Roberts fexofenadine [Gilda Allergy] Armando Roberts Allergies Allergy/AdvReac Type Severity Reaction Status Date / Time Penicillins Allergy Mild Unknown Verified 07/09/25 10:42 allergy reaction Sulfa (Sulfonamide Allergy Hives Verified 07/09/25 10:42 Antibiotics) codeine AdvReac Vomiting Verified 07/09/25 10:42 Results Laboratory Findings 08/17/25 05:57 08/17/25 05:57 PT/INR, D-dimer D-Dimer 3.64 ug/mL (0.0-0.5) H 08/15/25 17:07 Abnormal lab findings: Abnormal Labs 08/15/25 08/16/25 08/17/25 17:07 05:43 05:57 WBC 18.5 H 19.1 H 19.7 H RBC 4.00 L Hgb 11.3 L Hct 35.3 L Neut % (Auto) 91.9 H 87.7 H Lymph % (Auto) 3.6 L 6.2 L Eos % (Auto) 0.0 L 0.0 L 0.0 L Neut # (Auto) 14.2 H 17.5 H 17.3 H [place] # (Auto) 1.4 H 1.1 H D-Dimer 3.64 H Estimated GFR 57 L Glucose 139 H 197 H D 144 H Assessment and Plan *Assessment and plan (1) Leukocytosis: Status: Acute Qualifiers: Leukocytosis type: other Qualified Code(s): D72.828 - Other elevated white blood cell count Category: Medical Code(s): D72.829 - Elevated white blood cell count, unspecified (2) SIRS (systemic inflammatory response syndrome): Status: Acute Category: Medical Code(s): R65.10 - Systemic inflammatory response syndrome (SIRS) of non-infectious origin without acute organ dysfunction (3) Anaphylaxis: Status: Acute Qualifiers: Encounter type: initial encounter Qualified Code(s): T78.2XXA - Anaphylactic shock, unspecified, initial encounter Category: Medical Code(s): T78.2XXA - Anaphylactic shock, unspecified, initial encounter Plan Ms. Barr is a 60-year-old female history of asthma on Fasenra presented to the ER complaining of diffuse erythematous rash with itching. Patient last Fasenra injection 08/06/2025. Also received clindamycin 5 days prior to this current episode. She did she did have significant anaphylactic reaction with worsening shortness of breath hoarseness of voice and hypertensive episodes needing EpiPen when presented to the ER. Afebrile. Neutrophilic prominent leukocytosis. CTA upon admission no pulmonary embolism. No dense consolidative/airspace changes/ground glass opacities. First dose of Fasenra, June 04 week of 2024. Otherwise continue to receive Symbicort inhaler along with Singulair daily. Symptoms started with a rash that has been progressively gotten worse. Patient denies any respiratory symptoms or wheezing initially however she admits worsening shortness of breath with hoarseness of voice when presented to the ER. It is unclear whether with noted rash can be attributed to patient's Fasenra or clindamycin. Extensively discussed with the patient regarding the risks and benefits of continuing Fasenra/switching to alternate medication. Patient would really prefer not to switch/stops Fasenra at this point of time given significant improvement in her respiratory symptom control with Fasenra. The plan was made to continue Fasenra at this point of time weighing the risks and benefits patient having access to EpiPen and steroids with an understanding that if this were to happen patient would call ER promptly to avoid any further unnecessary complications. Says the rash completely resolved this morning. Otherwise at baseline respiratory symptoms. Plan: -Continue home medications including Symbicort 2 puffs daily along with Singulair Methylprednisolone can be weaned to prednisone 40 mg daily to complete a total of 5-day course Follow with Strongyloides serology Will send prescription for ivermectin to be filled in patient's outpatient pharmacy to complete as an outpatient basis. Will continue Fasenra with close monitoring, next dose to be given in October. Will follow in the clinic prior to that No need for further antibiotics at this point of time from pulmonary standpoint.
--- NOTE | 2025-08-17 12:08 | EXP.DC.SUM ---
General Admission date:: 08/15/25 Discharge date: 08/17/25 HPI HPI HPI: This is a very pleasant 60-year-old female with past medical history of asthma, obesity, chronic pain syndrome she reports around 1230 this afternoon sitting on her front porch drinking coffee and noticed that she began itching. She attributed the itching to mosquitoes but states that she looked down and was covered in hives. States that she had significant itching and hives across her back abdomen and upper and lower extremities. She denies any new soaps. Denies any ingestion of new foods or fluid. States that she was prescribed clindamycin and has been on it for 5 days for upper respiratory infection but has had clindamycin in the past without allergic reaction. States that she is allergic to sulfa. Spoke with her about tickborne illnesses. States that she noticed a tick approximately 4 months ago on her left hip. States the tick was very small in nature. Denies any recent red meat ingestion. States that she been weaning herself off of her Lyrica and chronic pain medications but has increased her methocarbamol recently. On the emergency department she required Benadryl, Pepcid for symptomatic control. Developed some shortness of breath as well as mild hypotension with systolic in the 90s requiring 2 doses of IM administration of epinephrine. Despite 2 rounds of IM epi and 2 doses of Benadryl, mild urticaria and hives persisted. After discussion with the ED provider and out of abundance of precaution it was felt the patient would benefit from hospitalization. She is admitted to the hospital service Hospital Course Hospital Course Hospital Course: This is a 60-year-old female who presents with urticarial rash received. She treatment for anaphylaxis requiring multiple doses of IM epinephrine. She is admitted for monitoring for recurrent episodes. Alpha gal obtained during admission. Pulmonology consulted to assist with follow-up given her asthma history. Still having intermittent rash but no respiratory symptoms, shortness of breath, signs of anaphylaxis. Intermittent fleeting rash that responds to Benadryl. Close follow-up with pulmonology for further management. Problems addressed as follows: #Anaphylaxis #Alpha gal syndrome, acute, present on admission Unsure of the etiology as patient denies any recent ingestion of new substances. Has been on clindamycin for oral abscess but has tolerated this well in the past. Does recall a tick bite approximately 4 months ago. Denies any current eating of red meat or pork. During her admission, alpha galactosidase panel IgE was obtained during admission. Patient found to be positive for beef allergen. Presentation with rash most consistent with alpha gal syndrome. This is a new diagnosis for patient. She was in the shaded on steroids with Solu-Medrol, Pepcid 20 mg IV twice daily, Benadryl every 6 hours as needed. Initiated long-acting antihistamine. Discharge home with EpiPen, long-acting antihistamine (fexofenadine), Benadryl and short acting antihistamine if needed, initiate Pepcid for 2 weeks twice daily 20 mg. Holding on steroids at this time. Overall doing well. Close follow-up with pulmonology as an outpatient to discuss continued use of benralizumab. Patient will need to avoid red meat in the future given her positive alpha gal results #SIRS #Leukocytosis Leukocytosis on admission. No focal signs of infection. Suspect leukocytosis secondary to allergic reaction. No indication for antibiotics. #Asthma No wheezing noted at this time, not in acute exacerbation. Stable on room air throughout entire admission. Patient did express nervousness about having rhinovirus again as she had severe course earlier this year. Respiratory panel was negative. -Continue home inhaler regimen. #Obesity: complicates all aspects of care #Chronic pain syndrome Patient reports self weaning from [place] and Lyrica. Has increased her home methocarbamol dosing. Will use Tylenol and ibuprofen as needed holding opiates and Lyrica per her preference #Depression/anxiety: Continue Prozac 20 mg daily Total time spent on discharge 32 minutes in counseling, documentation, chart review, and direct care with patient. Exam Data for Last 24 hours Vital signs and Labs for Last 24 Hours: Temp Pulse Resp BP Pulse Ox O2 Del Method 97.8 F 87 18 123/65 95 Room Air 08/17/25 08:00 08/17/25 08:00 08/17/25 08:00 08/17/25 08:00 08/17/25 08:00 08/17/25 09:00 Laboratory Results - last 24 hr 08/17/25 05:57: WBC 19.7 H, RBC 4.00 L, Hgb 11.3 L, Hct 35.3 L, MCV 88.3, MCH 28.3, MCHC 32.0, RDW 13.2, Plt Count 306, MPV 9.5, Neut % (Auto) 87.7 H, Lymph % (Auto) 6.2 L, [place] % (Auto) 5.3, Eos % (Auto) 0.0 L, Baso % (Auto) 0.2, Neut # (Auto) 17.3 H, Lymph # (Auto) 1.2, [place] # (Auto) 1.1 H, Eos # (Auto) 0.0, Baso # (Auto) 0.0, Sodium 139, Potassium 4.4, Chloride 103, Carbon Dioxide 28, Anion Gap 12.4, BUN 13, Creatinine 0.70, Estimated Creat Clear 120, Estimated GFR 86, Est GFR ( Amer) 104, Glucose 144 H, Calcium 8.8 I & O for Last 24 hours: Intake & Output 08/14/25 08/15/25 08/16/25 08/17/25 23:59 23:59 23:59 23:59 Intake Total 1000 / 1000 1320 / 1320 360 / 360 Output Total 500 / 500 240 / 240 Balance 500 / 500 1080 / 1080 360 / 360 Weight 86.545 kg 86.545 kg 86.543 kg Microbiology Reports for the Last 24 Hours: Microbiology 08/15/25 15:51 Urine,Clean Catch Urine Culture - Final No growth. 08/15/25 17:07 Blood Blood Culture - Preliminary NO GROWTH AFTER 24 HOURS 08/15/25 17:00 Blood Blood Culture - Preliminary NO GROWTH AFTER 24 HOURS Constitutional Constitutional: no acute distress, obese and cooperative *Routine HEENT Exam Head: Present normocephalic Eye: Present EOMI and PERRL ENT: Present mucous membranes moist *Routine Neck Exam Neck: Present supple; Absent lymphadenopathy *Routine Respiratory Exam Respiratory: Present CTA bilaterally; Absent rhonchi, wheezes or crackles *Routine Cardiovascular Exam Cardiovascular: Present RRR *Routine Abdominal Exam Abdominal: Present soft and normoactive bowel sounds; Absent tenderness *Routine Rectal Exam Patient deferred: visual exam *Routine Exam Patient deferred: external exam *Routine Extremities Exam Extremities: Absent cyanosis, clubbing or edema *Routine Skin Exam Skin: Present intact, urticaria (Intermittent. Improved with treatment) and rash *Routine Neurological Exam Neurological: Present alert, oriented X3 and moving all extremities; Absent altered mental status Routine Psychiatric Exam Psychiatric: Present anxious Results Data Completed and Pending Labs on day of discharge: Labs from last 24 hours 08/17/25 05:57 WBC 19.7 H RBC 4.00 L Hgb 11.3 L Hct 35.3 L MCV 88.3 MCH 28.3 MCHC 32.0 RDW 13.2 Plt Count 306 MPV 9.5 Neut % (Auto) 87.7 H Lymph % (Auto) 6.2 L [place] % (Auto) 5.3 Eos % (Auto) 0.0 L Baso % (Auto) 0.2 Neut # (Auto) 17.3 H Lymph # (Auto) 1.2 [place] # (Auto) 1.1 H Eos # (Auto) 0.0 Baso # (Auto) 0.0 Sodium 139 Potassium 4.4 Chloride 103 Carbon Dioxide 28 Anion Gap 12.4 BUN 13 Creatinine 0.70 Estimated Creat Clear 120 Estimated GFR 86 Est GFR ( Amer) 104 Glucose 144 H Calcium 8.8 Preliminary micro results at discharge 08/15/25 17:07 Blood Culture - Preliminary Blood NO GROWTH AFTER 24 HOURS 08/15/25 17:00 Blood Culture - Preliminary Blood NO GROWTH AFTER 24 HOURS DS: Diagnosis Discharge Diagnosis (1) Anaphylaxis: Status: Acute Code(s): T78.2XXA - Anaphylactic shock, unspecified, initial encounter Qualifiers: Encounter type: initial encounter Qualified Code(s): T78.2XXA - Anaphylactic shock, unspecified, initial encounter (2) SIRS (systemic inflammatory response syndrome): Status: Acute Code(s): R65.10 - Systemic inflammatory response syndrome (SIRS) of non-infectious origin without acute organ dysfunction (3) Leukocytosis: Status: Acute Code(s): D72.829 - Elevated white blood cell count, unspecified Qualifiers: Leukocytosis type: other Qualified Code(s): D72.828 - Other elevated white blood cell count (4) Chronic pain syndrome: Status: Acute Code(s): G89.4 - Chronic pain syndrome (5) BMI 33.0-33.9,adult: Status: Chronic Code(s): Z68.33 - Body mass index [BMI] 33.0-33.9, adult (6) Obesity: Status: Chronic Code(s): E66.9 - Obesity, unspecified Qualifiers: Obesity classification: adult class 1 (BMI 30 - 34.9) Obesity type: due to excess calories Serious obesity comorbidity presence: without serious comorbidity Body mass index: BMI 32.0-32.9 Qualified Code(s): E66.811 - Obesity, class 1; E66.09 - Other obesity due to excess calories; Z68.32 - Body mass index [BMI] 32.0-32.9, adult Problem details: 7 pound weight gain since last visit, patient attributes it to being sick, taken steroids (7) Allergy to alpha-gal: Status: Acute Code(s): Z91.018 - Allergy to other foods Meds Home Medications and Allergies Home Medications ?Medication ?Instructions ?Recorded ?Confirmed ?Type hydrocodone 7.5 mg-acetaminophen 1 tab PO TID 07/20/24 08/16/25 History 325 mg tablet pregabalin 50 mg capsule 50 mg PO BIDP PRN Moderate Pain 07/20/24 08/16/25 History (Scale Score 5-6) fluticasone propionate 50 2 spray intranasal DAILY 10/22/24 08/16/25 History mcg/actuation nasal spray,suspension benralizumab 30 mg/mL subcutaneous 30 mg SQ Q8W #1 mL 04/28/25 08/16/25 Rx syringe (Fasenra) albuterol sulfate 90 mcg/actuation 2 puff inhalation Q6HP PRN 08/16/25 08/16/25 History aerosol inhaler Shortness Of Breath fluoxetine 20 mg capsule 20 mg PO DAILY 08/16/25 08/16/25 History budesonide-formoterol HFA 160 2 puff inhalation BID #10.2 grams 08/17/25 Rx mcg-4.5 mcg/actuation aerosol inhaler (Breyna) diphenhydramine HCl 25 mg capsule 25 mg PO Q6HP PRN Itching #30 caps 08/17/25 Rx epinephrine 0.3 mg/0.3 mL 0.3 mg (0.3 mL) IM ONCE PRN 08/17/25 Rx injection, auto-injector (EpiPen) anaphylaxis #1 ea famotidine 20 mg tablet 20 mg PO BID 7 days #14 tabs 08/17/25 Rx fexofenadine 180 mg tablet 180 mg PO DAILY #30 tabs 08/17/25 Rx (Gilda Allergy) ivermectin 6 mg tablet 18 mg (3 x 6 mg) PO DAILY 2 doses 08/17/25 Rx #6 tabs New Prescriptions to Start Prescriptions: diphenhydramine HCl Armando Roberts epinephrine [EpiPen] Armando Roberts famotidine Armando Roberts fexofenadine [Gilda Allergy] Armando Roberts Allergies Allergy/AdvReac Type Severity Reaction Status Date / Time Penicillins Allergy Mild Unknown Verified 07/09/25 10:42 allergy reaction Sulfa (Sulfonamide Allergy Hives Verified 07/09/25 10:42 Antibiotics) codeine AdvReac Vomiting Verified 07/09/25 10:42 Discharge Plan Disposition Patient Disposition: Home, Self-Care Condition: Good Follow up Plan Follow up with: Janes Mason [Primary Care Provider, Medical] - 08/23/25 11:00 am Scout Avila MD [Physician, Pulmonology] - 09/13/25 1:00 pm Prescriptions/Medication Reconciliation: New famotidine 20 mg Tablet 20 mg PO BID 7 Days Qty: 14 0RF diphenhydramine HCl 25 mg Capsule 25 mg PO Q6HP PRN (Reason: Itching) Qty: 30 0RF fexofenadine [Gilda Allergy] 180 mg tablet 180 mg PO DAILY Qty: 30 0RF epinephrine [EpiPen] 0.3 mg/0.3 mL auto-injector 0.3 mg IM ONCE PRN (Reason: anaphylaxis) Qty: 1 0RF Rx Instructions: seek medical attention if need to administer Continued fluticasone propionate 50 mcg/actuation spray,suspension 2 spray intranasal DAILY Fasenra 30 mg/mL syringe 30 mg SQ Q8W Qty: 1 4RF Rx Instructions: 30 mg administered once every 4 weeks for the first 3 doses, and then once every 8 weeks thereafter by subcutaneous injection ivermectin 6 mg tablet 18 mg PO DAILY Qty: 6 0RF hydrocodone-acetaminophen 7.5-325 mg tablet 1 tab PO TID pregabalin 50 mg capsule 50 mg PO BIDP PRN (Reason: Moderate Pain (Scale Score 5-6)) albuterol sulfate 90 mcg/actuation HFA aerosol inhaler 2 puff INHALATION Q6HP PRN (Reason: Shortness Of Breath) fluoxetine 20 mg capsule 20 mg PO DAILY No Action budesonide-formoterol [Breyna] 160-4.5 mcg/actuation HFA aerosol inhaler 2 puff inhalation BID Qty: 10.2 3RF Problem Reconciliation Problems Reviewed?: Yes Patient Discharge Instructions ACTIVITY: Continue current activity DIET: continue same diet Patient Instructions: Shock Print Language: Amharic Providers Primary Care Provider: Janes Mason Admit Provider: Blaze Jay Attending Provider: Blaze Jay
--- NOTE | 2025-08-18 10:17 | SW/DCPLANNER ---
Spoke with patient on the phone. Patient stated that she is doing alot better. Patient stated that she was able to get most of her medicine picked up from [facility] pharmacy and that she is going to get the rest picked up. Patient stated that she has no concerns or questions at this time. Dorene Flor
[2025-08-19 23:56] LABS: O215-IgE Alpha-Gal 0.50 kU/L (Class I)
== END 2025-08-17 14:57 | disposition home or self-care (01) ==
LOC: ER 20:09 → 2ND 20:23 → ICU 20:28 → 2ND 08-16 12:30
PROVIDERS: Internal Medicine Adolescent Medicine; Internal Medicine Pulmonary Disease; Nurse Practitioner Acute Care; Student in an Organized Health Care Education/Training Program; Admitting Provider Student in an Organized Health Care Education/Training Program; Emergency Provider Student in an Organized Health Care Education/Training Program; PCP Family Medicine; Visit Provider Student in an Organized Health Care Education/Training Program
DX: T78.2XXA Anaphylactic shock, unspecified, initial encounter (principal); R65.10 Systemic inflammatory response syndrome (SIRS) of non-infectious origin without acute organ dysfunction; G89.4 Chronic pain syndrome; J45.909 Unspecified asthma, uncomplicated; F32.A Depression, unspecified; F41.9 Anxiety disorder, unspecified; E66.812 Obesity, class 2; K44.9 Diaphragmatic hernia without obstruction or gangrene; K76.0 Fatty (change of) liver, not elsewhere classified; E04.1 Nontoxic single thyroid nodule; Z68.32 Body mass index [BMI] 32.0-32.9, adult; Z88.0 Allergy status to penicillin; Z88.2 Allergy status to sulfonamides; Z88.5 Allergy status to narcotic agent; Z79.51 Long term (current) use of inhaled steroids; Z79.899 Other long term (current) drug therapy; E66.811 Obesity, class 1; E66.09 Other obesity due to excess calories; Z91.018 Allergy to other foods
CPT/HCPCS: 0223U; 36415; 70450; 71045; 71275; 80048; 80053; 81001; 82785; 83690; 84439; 84443; 84484; 85025; 85378; 86003; 86008; 86682; 86803; 87040; 87086; 87389; 93005; 96361; 96372; 96374; 96375; 96376; 99285; G0378; J0169; J1200; J1308; J2405; J2919; J3360; J7120; Q0162; Q9967

== ENCOUNTER 2025-10-04 10:48 | Outpatient (CLI) | payer MEDICARE, BC, SELFPAY ==
--- OUTSIDE RECORDS SUMMARY | 2021-10-13 09:53 | XMS_ITS | Encounter Summary ---
[facility] [address] [place] [address] Care Team Providers Care Ged Teacher Name Role Phone Janes Mason MD Primary Care Provider [phone] Reason for Visit * Diagnostic Imaging (Routine) - Closed Specialty Diagnoses / Procedures Referred By Contac t Referred To Contact Radiology Diagnoses Nontoxic multinodular goiter Procedures US Thyroid Raeann Carlson MD [address] [place] [address] Phone: tel: fax: [facility] [address] [place] [phone] Phone: tel: fax: Referral ID Status Reason Start Date Expiration Date Visits Re quested Visits Authorized [id number] Closed 10/13/2021 10/13/2022 1 1 Encounter Details Date Type Department Care Team (Late st Contact Info) Description 10/13/2021 9:53 AM EST Hospital Encounter [facility] [address] [place] [phone] Social History Tobacco Use Types Packs/Day [...] on filedocumented in this encounter Care Teams Ged Teacher Relationship Specialty Start Date End Date Janes Mason MD [address] [place] [address] PCP - General Family Medicine 07/11/21 documented as of this encounter
[2025-10-04 10:50] VITALS: BP 122/77; PULSE 87; RESP 20; O2SAT 98
[2025-10-04] MEDS: BENRALIZUMAB 30 MG SUBCUT (11:00)
--- OUTSIDE RECORDS SUMMARY | 2025-10-04 11:38 | XMS_ITS | Encounter Summary ---
Author Organization [employer] ([place], [place], [place], [place], [place]) Address [address] [place] [address] Care Team Providers Care Director Of Customer Acquisition Name Role Phone Unavailable Primary Care Provider Unavailabl e Encounter Details Date Type Department Care Team (Late st Contact Info) Description 10/17/2020 Transcribed Document [facility] [place] Family Medicine [facility] [place] [address] ProviderDarrell MD [address] [place] [address] [phone] Social History Tobacco Use Types Packs/Day Years Used Date Smoking Tobacco: Never Assessed Comments Unknown Sex and Gender Information Value Date Recorded Sex Assigned at Not on file Legal Sex Female 6:16 PM CDT Gender Identity Not on file Sexual Orientation Not on file documented as of this encounter Miscellaneous Notes * Cerner Conversion Note - Historical ProviderMD - 10/17/2020 4:38 PM WOOD FILLER ED Triage Entered On: 10/17/2020 17:34 EST Performed On: 10/17/2020 17:31 EST by Calli Cruz RN ED Triage Across the Room Chief Complaint : Hospitalized at [facility] last week c sepsis/PNA. Saw Gillian Alicia @ Dr. Cheek's office 10/13, had elevated WBCs. Temp today 98.6 - states baseline is 97.1 and she was advised to come to ED. Triage Date/Time : 10/17/2020 17:31 EST Calli Cruz RN - 10/17/2020 17:31 EST DCP GENERIC CODE Tracking Acuity : 3 - Urgent Tracking Group : [facility] ED Calli Cruz RN - 10/17/2020 17:31 [...] 10/17/2020 17:34:28 EST) Problems(Active) Anxiety (SNOMED CT :9186981908 ) Name of Problem: Anxiety ; Recorder: Tracey Mathews RN; Confirmation: Confirmed ; Classification: Medical ; Code: [id number] ; Contributor System: PowerChart ; Last Updated: 11/06/2016 11:42 EST ; Life Cycle Date: 11/06/2016 ; Life Cycle Status: Active ; Vocabulary: SNOMED CT Arthritis (SNOMED CT :1977415 ) Name of Problem: Arthritis ; Recorder: JOSÉ MIGUEL BRADSHAW RN; Confirmation: Confirmed ; Classification: Medical ; Code: [id number] ; Contributor System: PowerChart ; Last Updated: 09/23/2018 15:39 EST ; Life Cycle Date: 06/18/2018 ; Life Cycle Status: Active ; Vocabulary: SNOMED CT Asthma (SNOMED CT :909009278 ) Name of Problem: Asthma ; Recorder: Tracey Mathews RN; Confirmation: Confirmed ; Classification: Medical ; Code: 112203496 ; Contributor System: PowerChart ; Last Updated: 11/06/2016 11:28 EST ; Life Cycle Date: 11/06/2016 ; Life Cycle Status: Active ; Vocabulary: SNOMED CT Asthma (SNOMED CT :771678071 ) Name of Problem: Asthma ; Recorder: JOSÉ MIGUEL BRADSHAW RN; Confirmation: Confirmed ; Classification: Medical ; Code: 192415290 ; Contributor System: PowerChart ; Last Updated: 06/18/2018 15:03 EDT ; Life Cycle Date: 06/18/2018 ; Life Cycle Status: Active ; Vocabulary: SNOMED CT Cardiomyopathy (SNOMED CT :380873148 ) Name of Problem: Cardiomyopathy ; Recorder: Malgorzata Pemberton RN; Confirmation: Confirmed ; Classification: Medical ; Code: 729218167 ; Contributor System: PowerChart ; Last Updated: 11/07/2016 6:38 EST ; Life Cycle Date: 11/07/2016 ; Life Cycle Status: Active ; Vocabulary: SNOMED CT DDD (degenerative disc disease), cervical (SNOMED CT :325778730 ) Name of Problem: DDD (degenerative disc disease), cervical ; Recorder: Tracey Mathews RN; Confirmation: Confirmed ; Classification: Medical ; Code: 724835270 ; Contributor System: DatabricksChart ; Last Updated: 11/06/2016 11:41 EST ; Life Cycle Date: 11/06/2016 ; Life Cycle Status: Active ; Vocabulary: SNOMED CT Endometriosis (SNOMED CT :3129876310 ) Name of Problem: Endometriosis ; Recorder: Tracey Mathews RN; Confirmation: Confirmed ; Classification: Medical ; Code: 9841781101 ; Contributor System: PowerChart ; Last Updated: 11/06/2016 11:30 EST ; Life Cycle Date: 11/06/2016 ; Life Cycle Status: Active ; Vocabulary: SNOMED CT Fibroids (SNOMED CT :792728011 ) Name of Problem: Fibroids ; Recorder: Tracey Mathews RN; Confirmation: Confirmed ; Classification: Medical ; Code: 629335339 ; Contributor System: PowerChart ; Last Updated: 11/06/2016 11:30 EST ; Life Cycle Date: 11/06/2016 ; Life Cycle Status: Active ; Vocabulary: SNOMED CT GERD - Gastro-esophageal reflux disease (SNOMED CT :4078943299 ) Name of Problem: GERD - Gastro-esophageal reflux disease ; Recorder: Tracey Mathews RN; Confirmation: Confirmed ; Classification: Medical ; Code: 4630448122 ; Contributor System: PowerChart ; Last Updated: 11/06/2016 11:29 EST ; Life Cycle Date: 11/06/2016 ; Life Cycle Status: Active ; Vocabulary: SNOMED CT H/O: depression (SNOMED CT :873788301 ) Name of Problem: H/O: depression ; Recorder: JOSÉ MIGUEL BRADSHAW RN; Confirmation: Confirmed ; Classification: Medical ; Code: 464237112 ; Contributor System: PowerChart ; Last Updated: 06/18/2018 15:07 EDT ; Life Cycle Date: 06/18/2018 ; Life Cycle Status: Active ; Vocabulary: SNOMED CT History of obstructive sleep apnea (IMO :81846632 ) Name of Problem: History of obstructive sleep apnea ; Recorder: SYSTEM, SYSTEM; Confirmation: Confirmed ; Classification: Medical ; Code: 21115144 ; Last Updated: 06/18/2018 15:16 EDT ; Life Cycle Date: 06/18/2018 ; Life Cycle Status: Active ; Vocabulary: IMO Left carpal tunnel syndrome (SNOMED CT :9965419296 ) Name of Problem: Left carpal tunnel syndrome ; Recorder: Tracey Mathews RN; Confirmation: Confirmed ; Classification: Medical ; Code: 6520238081 ; Contributor System: PowerChart ; Last Updated: 11/06/2016 11:43 EST ; Life Cycle Date: 11/06/2016 ; Life Cycle Status: Active ; Vocabulary: SNOMED CT Migraine (SNOMED CT :58064097 ) Name of Problem: Migraine ; Recorder: Tracey Mathews RN; Confirmation: Confirmed ; Classification: Medical ; Code: 34647133 ; Contributor System: PowerChart ; Last Updated: 11/06/2016 11:30 EST ; Life Cycle Date: 11/06/2016 ; Life Cycle Status: Active ; Vocabulary: SNOMED CT Neck pain (SNOMED CT :7221377685 ) Name of Problem: Neck pain ; Recorder: Tracey Mathews RN; Confirmation: Confirmed ; Classification: Medical ; Code: 6157003318 ; Contributor System: PowerChart ; Last Updated: 11/06/2016 11:41 EST ; Life Cycle Date: 11/06/2016 ; Life Cycle Status: Active ; Vocabulary: SNOMED CT PCO - Polycystic ovaries (SNOMED CT :009503272 ) Name of Problem: PCO - Polycystic ovaries ; Recorder: Tracey Mathews RN; Confirmation: Confirmed ; Classification: Medical ; Code: 686436847 ; Contributor System: PowerChart ; Last Updated: 11/06/2016 11:30 EST ; Life Cycle Date: 11/06/2016 ; Life Cycle Status: Active ; Vocabulary: SNOMED CT Pneumonia (SNOMED CT :372124396 ) Name of Problem: Pneumonia ; Recorder: Tracey Mathews RN; Confirmation: Confirmed ; Classification: Medical ; Code: 751784275 ; Contributor System: PowerChart ; Last Updated: 11/06/2016 11:28 EST ; Life Cycle Date: 11/06/2016 ; Life Cycle Status: Active ; Vocabulary: SNOMED CT Sleep apnea (SNOMED CT :584323650 ) Name of Problem: Sleep apnea ; Recorder: JOSÉ MIGUEL BRADSHAW RN; Confirmation: Confirmed ; Classification: Medical ; Code: 341683999 ; Contributor System: PowerChart ; Last Updated: 06/18/2018 15:03 EDT ; Life Cycle Date: 06/18/2018 ; Life Cycle Status: Active ; Vocabulary: SNOMED CT Spinal stenosis of cervical region (SNOMED CT :358945129 ) Name of Problem: Spinal stenosis of cervical region ; Recorder: Tracey Mathews RN; Confirmation: Confirmed ; Classification: Medical ; Code: 082763118 ; Contributor System: PowerChart ; Last Updated: 11/06/2016 11:43 EST ; Life Cycle Date: 11/06/2016 ; Life Cycle Status: Active ; Vocabulary: SNOMED CT Wears glasses (SNOMED CT :218608871 ) Name of Problem: Wears glasses ; Recorder: JOSÉ MIGUEL BRADSHAW RN; Confirmation: Confirmed ; Classification: Medical ; Code: 596165263 ; Contributor System: Earth Class Mail ; Last Updated: 06/18/2018 15:01 EDT ; Life Cycle Date: 06/18/2018 ; Life Cycle Status: Active ; Vocabulary: SNOMED CT Diagnoses(Active) Abnormal laboratory findings Date: 10/17/2020 ; Diagnosis Type: Reason For Visit ; Confirmation: Complaint of ; Clinical Dx: Abnormal laboratory findings ; Classification: Medical ; Clinical Service: Non-Specified ; Code: PNED ; Probability: 0 ; Diagnosis Code: [id number] Shortness of breath Date: 10/17/2020 ; Diagnosis Type: Reason For Visit ; Confirmation: Complaint of ; Clinical Dx: Shortness of breath ; Classification: Medical ; Clinical Service: Non-Specified ; Code: PNED ; Probability: 0 ; Diagnosis Code: [id number] ED Height and Weight Height Source : Stated Height Entry Format : [place] Height, Feet : 5 ft(Converted to: 152 cm, 60 Inch) Height, Inches : 4 Inch(Converted to: 0 ft 4 Inch, 10.16 cm) Clinical Height : 162.56 cm Weight Source, ED : Critical estimated dosing weight Weight Entry Format : [place] Weight, Pounds : 250 lb Clinical Dosing Weight : 113.64 kg Body Surface Area (BSA) : 2.15 m2 Body Mass Index : 43 kg/m2 (>HHI) [place] Body Weight (IBW) : 54.3 kg Calil Cruz RN - 10/17/2020 17:31 EST documented in this encounter Plan of Treatment Not on file documented as of this encounter Visit Diagnoses Not on filedocumented in this encounter
--- OUTSIDE RECORDS SUMMARY | 2025-10-04 11:38 | XMS_ITS | Encounter Summary ---
Author Organization [employer] ([place], [place], [place], [place], [place]) Address [address] [place] [address] Care Team Providers Care Business Team Leader Name Role Phone Unavailable Primary Care Provider Unavailabl e Encounter Details Date Type Department Care Team (Late st Contact Info) Description 02/15/2020 Transcribed Document [facility] [place] Family Medicine [address] [place] [phone] ProviderDarrell MD [address] [place] [address] Social History Tobacco Use Types Packs/Day Years [...] following up for medication refills of her Aguanga and gabapentin. She reports that she is having pain in the left side of her neck. She says the pain never changes. She reports that the pain is [id number] at times. She says that the pain does radiate to the left shoulder. She reports that her pain is an aching sensation. She says she does have associated symptoms of depression and fatigue. She is using cold in addition to taking her Lyrica and Aguanga as prescribed. The patient says she does [...] and tooth loss. She says that the cutter head sharpener did say she was negative for Sjogren's but she does have an elevated ESR. The patient says that she does have a dishwasher busser, Dr. Crow at [place], however, she has not seen him in [...] patient psych evaluation, urine drug screen, and BALKE were appropriate for taking opioid medication. ASSESSMENT: [...] 100 mg 3 times daily. 3. Continue Aguanga 7.5/325 mg 3 times daily as needed. [...] today and make an appointment with her dishwasher busser in light of her symptoms so that [...] medications for this patient's treatment plan today. /[id number] FLOYD Mullins/MIRIAN / PITA / MODL documented in this encounter Plan of Treatment Not on file documented as of this encounter Visit Diagnoses Not on filedocumented in this encounter
--- OUTSIDE RECORDS SUMMARY | 2025-10-04 11:38 | XMS_ITS | Encounter Summary ---
Author Organization [employer] ([place], [place], [place], [place], [place]) Address [address] [place] [address] Care Team Providers Care Assistant Professor Of History Name Role Phone Unavailable Primary Care Provider Unavailabl e Encounter Details Date Type Department Care Team (Late st Contact Info) Description 01/04/2021 Transcribed Document [facility] [place] [address] ProviderDarrell MD [address] [place] [address] [phone] Social History Tobacco Use Types Packs/Day Years Used Date Smoking Tobacco: Never Assessed Comments Unknown Sex and Gender Information Value Date Recorded Sex Assigned at Not on file Legal Sex Female 6:16 PM CDT Gender Identity Not on file Sexual Orientation Not on file documented as of this encounter Miscellaneous Notes * Cerner Conversion Note - Darrell ProviderMD - 01/04/2021 2:42 PM MEAT DEPARTMENT MANAGER DATE OF SERVICE: 12/21/2020 Height 64 inches [...] was normal. 4. Clinical correlation is suggested. /[id number] Della Ortiz MD HE/AQ / XIAO / MODL /[id number] Electronically signed by Paul Grubbs Conversion Utilities And Maintenance Supervisor Cerner at 02/18/2023 4:53 PM CDT documented in this encounter Plan of Treatment Not on file documented as of this encounter Visit Diagnoses Not on filedocumented in this encounter
--- OUTSIDE RECORDS SUMMARY | 2025-10-04 11:38 | XMS_ITS | Encounter Summary ---
Author Organization [employer] ([place], [place], [place], [place], [place]) Address [address] [place] [address] Care Team Providers Care Valet Service Attendant Name Role Phone Unavailable Primary Care Provider Unavailabl e Encounter Details Date Type Department Care Team (Late st Contact Info) Description 03/14/2020 Transcribed Document [facility] [place] [facility] [place] [address] ProviderDarrell MD [address] [place] [address] Social History Tobacco Use Types Packs/Day Years [...] also trying to wean herself off her Cheyenne by doing one-half tablet at a time. [...] it. 2. We are going to continue Cheyenne 7.5/325 mg three times daily as needed. [...] medications for this patient's treatment plan today. /[id number] Jazz FLOYD Church/AQ / PITA / MODL CC: FLOYD Lazo MD Electronically signed by [employer], [facility] Conversion Tool Polishing Machine Operator Cerner at 02/18/2023 5:02 PM CDT documented in this encounter Plan of Treatment Not on file documented as of this encounter Visit Diagnoses Not on filedocumented in this encounter
--- OUTSIDE RECORDS SUMMARY | 2025-10-04 11:38 | XMS_ITS | Encounter Summary ---
Author Organization [employer] ([place], [place], [place], [place], [place]) Address [address] [place] [address] Care Team Providers Care Account Services Analyst Name Role Phone Unavailable Primary Care Provider Unavailabl e Encounter Details Date Type Department Care Team (Late st Contact Info) Description 01/05/2019 Transcribed Document [facility] [place] [facility] [place] [address] ProviderDarrell MD [address] [place] [address] [phone] Social History Tobacco Use Types Packs/Day Years Used Date Smoking Tobacco: Never Assessed Comments Unknown Sex and Gender Information Value Date Recorded Sex Assigned at Not on file Legal Sex Female 6:16 PM CDT Gender Identity Not on file Sexual Orientation Not on file documented as of this encounter Miscellaneous Notes * Cerner Conversion Note - Historical ProviderMD - 01/05/2019 1:45 PM DETECTIVE PRECINCT DATE OF ADMISSION: 01/05/2019 HISTORY OF PRESENT [...] now. The patient does continue to take [place] 7.5/325 mg 2-3 times a day as [...] 5. Long-term opioid use. PLAN: 1. Refill [place] 7.5/325 mg 2-3 times a day as [...] Dr. Janes Mason Electronically signed by [employer] [facility] Conversion Bevel Face Stoner And Polisher Cerner at 02/18/2023 4:50 PM CDT documented in this encounter Plan of Treatment Not on file documented as of this encounter Visit Diagnoses Not on filedocumented in this encounter
--- OUTSIDE RECORDS SUMMARY | 2025-10-04 11:38 | XMS_ITS | Encounter Summary ---
Author Organization [employer] ([place], [place], [place], [place], [place]) Address [address] [place] [address] Care Team Providers Care Patrol Sergeant Name Role Phone Unavailable Primary Care Provider Unavailabl e Encounter Details Date Type Department Care Team (Late st Contact Info) Description 03/17/2019 Transcribed Document [facility] [place] [address] ProviderDarrell MD [address] [place] [phone] Social History Tobacco Use Types Packs/Day Years [...] Dr. Janes Mason Electronically signed by [employer] [facility] Conversion Mill Beam Fitter Cerner at 02/18/2023 4:50 PM CDT documented in this encounter Plan of Treatment Not on file documented as of this encounter Visit Diagnoses Not on filedocumented in this encounter
--- OUTSIDE RECORDS SUMMARY | 2025-10-04 11:38 | XMS_ITS | Encounter Summary ---
Author Organization [employer] ([place], [place], [place], [place], [place]) Address [address] [place] [address] Care Team Providers Care Shoe Packer Name Role Phone Unavailable Primary Care Provider Unavailabl e Encounter Details Date Type Department Care Team (Late st Contact Info) Description 06/27/2020 Transcribed Document [facility] [place] Family Medicine [facility] [place] [address] ProviderDarrell MD [address] [place] [phone] Social History Tobacco Use Types Packs/Day Years [...] possible. The patient is also taking her [place] 3 times daily as needed and her [...] dose. She has voiced understanding. 3. Continue [place] 7.5/325 mg 3 times daily as needed. [...] visit and the patient has been afebrile. /[id number] DICTATED BY: Jazz Orta APRN for Pepe Krishna MD, BLAKE Pain Certified Pepe Krishna MD, BLAKE Pain Certified PITA/AQ / PIAT / MODL CC: REYES (REF) MD AUDIE documented in this encounter Plan of Treatment Not on file documented as of this encounter Visit Diagnoses Not on filedocumented in this encounter
--- OUTSIDE RECORDS SUMMARY | 2025-10-04 11:38 | XMS_ITS | Encounter Summary ---
Author Organization [employer] ([place], [place], [place], [place], [place]) Address [address] [place] [address] Care Team Providers Care Data Developer Name Role Phone Unavailable Primary Care Provider Unavailabl e Encounter Details Date Type Department Care Team (Late st Contact Info) Description 10/17/2020 Transcribed Document [facility] [place] [facility] [address] ProviderDarrell MD [address] [place] [address] Social History Tobacco Use Types Packs/Day Years Used Date Smoking Tobacco: Never Assessed Comments Unknown Sex and Gender Information Value Date Recorded Sex Assigned at Not on file Legal Sex Female 6:16 PM CDT Gender Identity Not on file Sexual Orientation Not on file documented as of this encounter Miscellaneous Notes * Cerner Conversion Note - Historical ProviderMD - 10/17/2020 4:38 PM METAL FABRICATION SUPERVISOR ED Assessment Entered On: 10/17/2020 22:43 EST [...] Communication Barrier : None Primary Language : Kyrgyz Any Spiritual/Cultural Needs or Requests : No [...] Rhythm : Regular Nail Bed Color : Rentz Chest Pain : Yes Neck Vein Distention [...] EST Gastrointestinal ED Gastrointestinal Assessment WDL : Jeannette Justin RN - 10/17/2020 22:40 EST Electronically signed by [employer], [facility] Conversion Wood Patternmaker Cerner at 02/18/2023 5:10 PM CDT documented in this encounter Plan of Treatment Not on file documented as of this encounter Visit Diagnoses Not on filedocumented in this encounter
--- OUTSIDE RECORDS SUMMARY | 2025-10-04 11:38 | XMS_ITS | Encounter Summary ---
Author Organization [employer] ([place], [place], [place], [place], [place]) Address [address] [place] [address] Care Team Providers Care Insole Presser Name Role Phone Unavailable Primary Care Provider Unavailabl e Encounter Details Date Type Department Care Team (Late st Contact Info) Description 02/09/2019 Transcribed Document [facility] [place] Family Medicine [facility] [place] [address] Darrell Flores MD [address] [place] [phone] Social History Tobacco Use Types Packs/Day Years [...] patient states that she did see her flag car driver and has some of her COPD medications [...] filled. The patient does continue to take [place] 7.5/325 mg 2-3 times a day as [...] 5. Long-term opioid use. PLAN: 1. Refill [place] 7.5/325 mg 2-3 times a day as [...]
--- OUTSIDE RECORDS SUMMARY | 2025-10-04 11:38 | XMS_ITS | Encounter Summary ---
Author Organization [employer] ([place], [place], [place], [place], [place]) Address [address] [place] [address] Care Team Providers Care Senior Corporate Strategy Manager Name Role Phone Unavailable Primary Care Provider Unavailabl e Encounter Details Date Type Department Care Team (Late st Contact Info) Description 05/10/2020 Transcribed Document [facility] [place] [address] ProviderDarrell MD [address] [place] [address] Social History Tobacco Use Types Packs/Day Years [...] sedation, driving problem, or GI problem. Her furniture mover driver recently placed her on Cymbalta 30 mg [...] and walking. 8. I agree with her furniture mover driver to continue with Cymbalta 30 mg at [...] visit and the patient has been afebrile. /[id number] Pepe Krishna MD, BLAKE Pain Certified KR/AQ / KR / MODL CC: Janes Mason MD documented in this encounter Plan of Treatment Not on file documented as of this encounter Visit Diagnoses Not on filedocumented in this encounter
--- OUTSIDE RECORDS SUMMARY | 2025-10-04 11:38 | XMS_ITS | Clinical Summary ---
Author Organization [facility] Address [address] [place] [address] Phone Care Team Providers Care Glassworker Name Role Phone Janes Mason Primary Care Provider [phone] Allergies Active Allergy Reactions Criticality Noted Date [...] of 2) 2017 COVID-19 Vaccine (1 - 2024-2 6 season) 2025 Influenza Vaccine (#1) 2025 Meningococcal B Vaccine Aged Out No l onger eligible based on patient's age to complete this topic Insurance PPO [facility] Care Teams Glassworker Relationship Specialty Start Date End Date Janes Mason [address] [place] [phone] PCP - General Family Medicine 04/09/17
--- OUTSIDE RECORDS SUMMARY | 2025-10-04 11:38 | XMS_ITS | Encounter Summary ---
Author Organization [employer] ([place], [place], [place], [place], [place]) Address [address] [place] [address] Care Team Providers Care Organic Chemistry Professor Name Role Phone Unavailable Primary Care Provider Unavailabl e Encounter Details Date Type Department Care Team (Late st Contact Info) Description 10/17/2020 Transcribed Document [facility] [place] [address] [place] [address] ProviderDarrell MD [address] [place] [address] Social History Tobacco Use Types Packs/Day Years Used Date Smoking Tobacco: Never Assessed Comments Unknown Sex and Gender Information Value Date Recorded Sex Assigned at Not on file Legal Sex Female 6:16 PM CDT Gender Identity Not on file Sexual Orientation Not on file documented as of this encounter Miscellaneous Notes * Cerner Conversion Note - Historical ProviderMD - 10/17/2020 4:38 PM TRAFFIC SIGN SUPERVISOR [place]set Violence Assessment Entered On: 10/17/2020 [...]
--- OUTSIDE RECORDS SUMMARY | 2025-10-04 11:38 | XMS_ITS | Encounter Summary ---
Author Organization [employer] ([place], [place], [place], [place], [place]) Address [address] [place] [address] Care Team Providers Care Substation Electrician Name Role Phone Unavailable Primary Care Provider Unavailabl e Encounter Details Date Type Department Care Team (Late st Contact Info) Description 10/17/2020 Transcribed Document [facility] [place] [facility] [place] [address] ProviderDarrell MD [address] [place], [place] [phone] Social History Tobacco Use Types Packs/Day Years Used Date Smoking Tobacco: Never Assessed Comments Unknown Sex and Gender Information Value Date Recorded Sex Assigned at Not on file Legal Sex Female 6:16 PM CDT Gender Identity Not on file Sexual Orientation Not on file documented as of this encounter Miscellaneous Notes * [employer]ner Conversion Note - Historical ProviderMD - 10/17/2020 8:40 PM CLINICAL SOCIAL WORKER ED Event Note Entered On: 10/17/2020 20:40 [...]
--- OUTSIDE RECORDS SUMMARY | 2025-10-04 11:38 | XMS_ITS | Encounter Summary ---
Author Organization [employer] ([place], [place], [place], [place], [place]) Address [address] [place] [address] Care Team Providers Care Shirt Bander Name Role Phone Unavailable Primary Care Provider Unavailabl e Encounter Details Date Type Department Care Team (Late st Contact Info) Description 06/08/2019 Transcribed Document [facility] [place] [facility] [place] [address] ProviderDarrell MD [address] [place] [phone] Social History Tobacco Use Types Packs/Day Years [...] Lyrica 100 mg 3 times daily and [place] 7.5/325 mg 3 times daily as needed. [...] doing well with the increase in the [place] and it is giving her so much [...] with alcohol, or self-escalate it. 2. Continue [place] 7.5/325 mg 3 times daily. 3. Continue [...] for pain alleviation prior to taking her [place], including heat, ice, relaxation, rest, and meditation. [...]
--- OUTSIDE RECORDS SUMMARY | 2025-10-04 11:38 | XMS_ITS | Encounter Summary ---
Author Organization [employer] ([place], [place], [place], [place], [place]) Address [address] [place] [address] Care Team Providers Care Water Control Supervisor Name Role Phone Unavailable Primary Care Provider Unavailabl e Encounter Details Date Type Department Care Team (Late st Contact Info) Description 11/24/2018 Transcribed Document [facility] [place] Family Medicine [facility] [place] [address] ProviderDarrell MD [address] [place] [address] Social History Tobacco Use Types Packs/Day Years Used Date Smoking Tobacco: Never Assessed Comments Unknown Sex and Gender Information Value Date Recorded Sex Assigned at Not on file Legal Sex Female 6:16 PM CDT Gender Identity Not on file Sexual Orientation Not on file documented as of this encounter Miscellaneous Notes * [employer]ner Conversion Note - Historical ProviderMD - 11/24/2018 3:56 PM CHOCOLATE MOLDER DATE OF ADMISSION: 11/24/2018 HISTORY OF PRESENT [...] it. The patient does continue to take [place] 7.5/325 mg 2-3 times a day as [...] radiculopathy. 4. Cervical spondylosis. PLAN: 1. Refill [place] 7.5/325 mg 2-3 times a day as [...] Dr. Janes Mason Electronically signed by [facility] Conversion Accessibility Lift Technician Cerner at 02/18/2023 4:59 PM CDT documented in this encounter Plan of Treatment Not on file documented as of this encounter Visit Diagnoses Not on filedocumented in this encounter
--- OUTSIDE RECORDS SUMMARY | 2025-10-04 11:38 | XMS_ITS | Encounter Summary ---
Author Organization [employer] ([place], [place], [place], [place], [place]) Address [address] [place] [address] Care Team Providers Care Heating Technician Name Role Phone Unavailable Primary Care Provider Unavailabl e Encounter Details Date Type Department Care Team (Late st Contact Info) Description 04/11/2020 Transcribed Document [facility] [place] Medicine [address] [place] [address] ProviderDarrell MD [address] [place] [address] Social History Tobacco Use Types Packs/Day Years [...] she is still trying to decrease her Gautier usage, however, she had to go back [...] have some constipation, but she uses something [id number]-[id number] that does help with that. The patient is also taking diclofenac as well as Robaxin and Lyrica in addition to the Gautier and denies any adverse effects from any [...] 100 mg 3 times daily. 6. Continue Gautier 7.5/325 mg 3 times daily as needed. [...] medications for this patient's treatment plan today. /[id number] FLOYD Mullins/MIRIAN / PITA / MODL CC: Janes Mason MD Electronically signed by [employer], [facility] Conversion Client Account Representative Cerner at 02/18/2023 5:04 PM CDT documented in this encounter Plan of Treatment Not on file documented as of this encounter Visit Diagnoses Not on filedocumented in this encounter
--- OUTSIDE RECORDS SUMMARY | 2025-10-04 11:38 | XMS_ITS | Encounter Summary ---
Author Organization [employer] ([place], [place], [place], [place], [place]) Address [address] [place] [address] Care Team Providers Care Dividing Machine Operator Name Role Phone Unavailable Primary Care Provider Unavailabl e Encounter Details Date Type Department Care Team (Late st Contact Info) Description 11/24/2020 Transcribed Document [facility] [place] Family [place] [facility] [place] [address] ProviderDarrell MD [address] [place] [address] [phone] Social History Tobacco Use Types Packs/Day Years Used Date Smoking Tobacco: Never Assessed Comments Unknown Sex and Gender Information Value Date Recorded Sex Assigned at Not on file Legal Sex Female 6:16 PM CDT Gender Identity Not on file Sexual Orientation Not on file documented as of this encounter Miscellaneous Notes * [employer]ner Conversion Note - Historical ProviderMD - 11/24/2020 3:48 PM RUBY ON RAILS DEVELOPER DATE OF ADMISSION: 11/24/2020 HISTORY OF PRESENT [...] visit and the patient has been afebrile. /[id number] Pepe Krishna MD, BLAKE Pain Certified KR/AQ / KR / MODL CC: REYES BRONSON MD Electronically signed by [employer], [facility] Conversion Book Critic Cerner at 02/18/2023 4:50 PM CDT documented in this encounter Plan of Treatment Not on file documented as of this encounter Visit Diagnoses Not on filedocumented in this encounter
--- OUTSIDE RECORDS SUMMARY | 2025-10-04 11:38 | XMS_ITS | Encounter Summary ---
Author Organization [employer] ([place], [place], [place], [place], [place]) Address [address] [place] [address] Care Team Providers Care Reed Polisher Name Role Phone Unavailable Primary Care Provider Unavailabl e Encounter Details Date Type Department Care Team (Late st Contact Info) Description 10/17/2020 Transcribed Document [facility] [place] Family Medicine [facility] [place] [address] ProviderDarrell MD [address] [place] [address] Social History Tobacco Use Types Packs/Day Years Used Date Smoking Tobacco: Never Assessed Comments Unknown Sex and Gender Information Value Date Recorded Sex Assigned at Not on file Legal Sex Female 6:16 PM CDT Gender Identity Not on file Sexual Orientation Not on file documented as of this encounter Miscellaneous Notes * Cerner Conversion Note - Historical ProviderMD - 10/17/2020 10:52 PM SIZE CHANGER Patient: FERMIN BARR Age: 55 years Sex: Female : 1965 Associated Diagnoses: Elevated WBCs; PNA (pneumonia) Author: HAYLEE YOUNGBLOOD PA-C Basic Information Additional information: Chief Complaint from Nursing Triage Note : Chief Complaint 10/17/2020 17:31 EST Chief Complaint Hospitalized at [place] last week c sepsis/PNA. Saw Maximiliano Alicia [...] Patient says that after being discharged from [facility] last week due to sepsis and [...] to see if she could come to [place] to have her blood work done in [...] 30 Tab, 2 Refill(s) Documented Medications Documented [place] 7.5 mg-325 mg oral tablet: 1 Tab, [...] EST Height Source Stated Height Entry Format [place] Height/Length, BELARUSIAN (ft) 5 ft Height/Length BELARUSIAN 4 Inch CLINICALHEIGHT 162.56 cm [place] Body Weight 54.3 kg Weight Source, ED Critical estimated dosing weight Weight Entry Format [place] Weight Somali lb 250 lb CLINICALWEIGHT 113.64 kg Body [...] Triage: ED C-SSRS: ED Clinical Reconciliation: ED silk spooler: EKG: Lactic Acid Level with Reflex if [...] 11.7 % LOW Lymph # 2.28 x10(3)/uL Lyman % 4.3 % Lyman # 0.83 K/uL Eos % 0.1 % [...]
--- OUTSIDE RECORDS SUMMARY | 2025-10-04 11:38 | XMS_ITS | Encounter Summary ---
Author Organization [employer] ([place], [place], [place], [place], [place]) Address [address] [place] [address] Care Team Providers Care Life Teacher Name Role Phone Unavailable Primary Care Provider Unavailabl e Encounter Details Date Type Department Care Team (Late st Contact Info) Description 10/17/2020 Transcribed Document [facility] [place] [facility] [place] [address] ProviderDarrell MD [address] [place] [id number] Social History Tobacco Use Types Packs/Day Years Used Date Smoking Tobacco: Never Assessed Comments Unknown Sex and Gender Information Value Date Recorded Sex Assigned at Not on file Legal Sex Female 6:16 PM CDT Gender Identity Not on file Sexual Orientation Not on file documented as of this encounter Miscellaneous Notes * Cerner Conversion Note - Historical ProviderMD - 10/17/2020 8:38 PM HOG ROOM SUPERVISOR ED Event Note Entered On: 10/17/2020 20:40 [...] and your oxygen level is 99% RAJeannette Tan RN - 10/17/2020 20:38 EST documented in this encounter Plan of Treatment Not on file documented as of this encounter Visit Diagnoses Not on filedocumented in this encounter
--- OUTSIDE RECORDS SUMMARY | 2025-10-04 11:38 | XMS_ITS | Encounter Summary ---
Author Organization [employer] ([place], [place], [place], [place], [place]) Address [address] [place] [address] Care Team Providers Care Blast Furnace Checker Name Role Phone Unavailable Primary Care Provider Unavailabl e Encounter Details Date Type Department Care Team (Late st Contact Info) Description 04/14/2019 Transcribed Document [facility] [place] [facility] [place] [address] ProviderDarrell MD [address] [place] [address] Social History Tobacco Use Types Packs/Day Years [...] Mason Electronically signed by [facility] Conversion Truck Driving Instructor Cerner at 02/18/2023 4:56 PM CDT documented in this encounter Plan of Treatment Not on file documented as of this encounter Visit Diagnoses Not on filedocumented in this encounter
--- OUTSIDE RECORDS SUMMARY | 2025-10-04 11:38 | XMS_ITS | Encounter Summary ---
Author Organization [employer] ([place], [place], [place], [place], [place]) Address [address] [place] [address] Care Team Providers Care Lamp Wirer Name Role Phone Unavailable Primary Care Provider Unavailabl e Encounter Details Date Type Department Care Team (Late st Contact Info) Description 10/17/2020 Transcribed Document [facility] [place] Family Medicine [facility] [place] [address] ProviderDarrell MD [address] [place] [address] Social History Tobacco Use Types Packs/Day Years Used Date Smoking Tobacco: Never Assessed Comments Unknown Sex and Gender Information Value Date Recorded Sex Assigned at Not on file Legal Sex Female 6:16 PM CDT Gender Identity Not on file Sexual Orientation Not on file documented as of this encounter Miscellaneous Notes * Cerner Conversion Note - Historical ProviderMD - 10/17/2020 8:29 PM MEASUREMENT PSYCHOLOGIST Vital Signs ED Entered On: 10/17/2020 20:29 [...] 10/17/2020 20:29 EST Electronically signed by [facility] Conversion Seal Delivery Vehicle Officer Cerner at 02/18/2023 4:53 PM CDT documented in this encounter Plan of Treatment Not on file documented as of this encounter Visit Diagnoses Not on filedocumented in this encounter
--- OUTSIDE RECORDS SUMMARY | 2025-10-04 11:38 | XMS_ITS | Clinical Summary ---
Author Organization [facility] Address [address] [id number] Care Team Providers Care Construction Job Titles Name Role Phone Janes Mason MD Primary Care Provider [phone] Allergies Active Allergy Reactions Criticality Noted Date Comments Acetaminophen GI Intolerance 12/01/2015 Acetaminophen-Codeine Unknown - Low Severity Codeine GI Intolerance 10/13/2021 Penicillins Other (See Comments) ,Unknown - Low Severity 11/13/2012 Medications pregabalin (Lyrica) 100 MG capsule Every 8 (Eight) Hours. Active HYDROcodone-acet aminophen (Richton) 5-325 MG per tablet Richton 5 mg-325 mg tablet Take 1 tablet [...] Payer (Ef fective 2019-Present) Name:Darshana Barr Member ID:[id number] Relation to Subscriber:Self Name:Darshana Barr Subscriber ID:[id number] Payer ID:[id number] Group ID:Not on file Type:Not on file Address: [address] Care Teams Construction Job Titles Relationship Specialty Start Date End Date Janes Mason MD [address] [place] [address] PCP - General Family Medicine 07/11/21
--- OUTSIDE RECORDS SUMMARY | 2025-10-04 11:38 | XMS_ITS | Encounter Summary ---
Author Organization [employer] ([place], [place], [place], [place], [place]) Address [address] [place] [address] Care Team Providers Care Medical File Clerk Name Role Phone Unavailable Primary Care Provider Unavailabl e Encounter Details Date Type Department Care Team (Late st Contact Info) Description 10/17/2020 Transcribed Document [facility] [place] Family [place] [facility] [place] [address] ProviderDarrell MD [address] [place], [place] [phone] Social History Tobacco Use Types Packs/Day Years Used Date Smoking Tobacco: Never Assessed Comments Unknown Sex and Gender Information Value Date Recorded Sex Assigned at Not on file Legal Sex Female 6:16 PM CDT Gender Identity Not on file Sexual Orientation Not on file documented as of this encounter Miscellaneous Notes * Cerner Conversion Note - Historical ProviderMD - 10/17/2020 11:15 PM MEDIA/INSTRUCTIONAL DESIGNER ED Discharge Vital Signs Entered On: 10/17/2020 23:15 EST Performed On: 10/17/2020 23:15 EST by Jeannette Fuller RN ED Discharge Vital Signs Peripheral Pulse Rate : 82 bpm Respiratory Rate : 20 Breaths/Min Systolic Blood Pressure : 121 mmHg Diastolic Blood Pressure : 67 mmHg Oxygen Saturation : 98 % Jeannette Fuller RN - 10/17/2020 23:15 EST Electronically signed by [facility] Conversion Silk Top Hat Body Maker Cerner at 02/18/2023 4:50 PM CDT documented in this encounter Plan of Treatment Not on file documented as of this encounter Visit Diagnoses Not on filedocumented in this encounter
--- OUTSIDE RECORDS SUMMARY | 2025-10-04 11:38 | XMS_ITS | Encounter Summary ---
Author Organization [employer] ([place], [place], [place], [place], [place]) Address [address] [place] [address] Care Team Providers Care Hose Cementer Name Role Phone Unavailable Primary Care Provider Unavailabl e Encounter Details Date Type Department Care Team (Late st Contact Info) Description 01/06/2021 Transcribed Document [facility] [place] Family Medicine [facility] [place] [address] Darrell Flores MD [address] [place] [address] [phone] Social History Tobacco Use Types Packs/Day Years Used Date Smoking Tobacco: Never Assessed Comments Unknown Sex and Gender Information Value Date Recorded Sex Assigned at Not on file Legal Sex Female 6:16 PM CDT Gender Identity Not on file Sexual Orientation Not on file documented as of this encounter Miscellaneous Notes * Cerner Conversion Note - Darrell Flores MD - 01/06/2021 1:10 PM CLINICAL RN MANAGER Patient: FERMIN BARR Age: 55 Years Sex: [...] - Start Time: 01/06/21 12:57:00 (01/06/21 13:05:13) documented in this encounter Plan of Treatment Not on file documented as of this encounter Visit Diagnoses Not on filedocumented in this encounter
--- OUTSIDE RECORDS SUMMARY | 2025-10-04 11:38 | XMS_ITS | Encounter Summary ---
Author Organization [employer] ([place], [place], [place], [place], [place]) Address [address] [place] [address] Care Team Providers Care Retail Team Member Name Role Phone Unavailable Primary Care Provider Unavailabl e Encounter Details Date Type Department Care Team (Late st Contact Info) Description 10/17/2020 Transcribed Document [facility] [place] [facility] [place] [address] ProviderDarrell MD [address] [place] [address] [phone] Social History Tobacco Use Types Packs/Day Years Used Date Smoking Tobacco: Never Assessed Comments Unknown Sex and Gender Information Value Date Recorded Sex Assigned at Not on file Legal Sex Female 6:16 PM CDT Gender Identity Not on file Sexual Orientation Not on file documented as of this encounter Miscellaneous Notes * Cerner Conversion Note - Historical ProviderMD - 10/17/2020 11:14 PM HYSTER DRIVER ED Discharge Entered On: 10/17/2020 23:14 EST [...]
--- OUTSIDE RECORDS SUMMARY | 2025-10-04 11:38 | XMS_ITS | Encounter Summary ---
Author Organization [employer] ([place], [place], [place], [place], [place]) Address [address] [place] [address] Care Team Providers Care Beam Doffer Name Role Phone Unavailable Primary Care Provider Unavailabl e Encounter Details Date Type Department Care Team (Late st Contact Info) Description 10/04/2020 Transcribed Document [facility] [place] Family [place] [facility] [address] ProviderDarrell MD [address] [place] [phone] Social History Tobacco Use Types Packs/Day Years Used Date Smoking Tobacco: Never Assessed Comments Unknown Sex and Gender Information Value Date Recorded Sex Assigned at Not on file Legal Sex Female 6:16 PM CDT Gender Identity Not on file Sexual Orientation Not on file documented as of this encounter Miscellaneous Notes * Cerner Conversion Note - Historical ProviderMD - 10/04/2020 4:06 PM LEATHER PRODUCTION WORKER DATE OF ADMISSION: 10/04/2020 HISTORY OF PRESENT [...] is also using Cymbalta and taking her [place] 3 times daily. She says that she is also using Robaxin as needed and taking her Lyrica 3 times daily. The patient says that she really needs to have the [place] dosage 4 times daily. She says that [...] not to take the Lyrica and the [place] at the same time but alternate those. [...] visit and the patient has been afebrile. /[id number] FLOYD Mullins/MIRIAN / PITA / MODL CC: REYES (REF) MD AUDIE Electronically signed by [employer], [facility] Conversion Chemical Engineering Technician Cerner at 02/18/2023 4:59 PM CDT documented in this encounter Plan of Treatment Not on file documented as of this encounter Visit Diagnoses Not on filedocumented in this encounter
--- OUTSIDE RECORDS SUMMARY | 2025-10-04 11:38 | XMS_ITS | Clinical Summary ---
Author Organization [facility] Address [address] [id number] Care Team Providers Care Breaker Mechanic Name Role Phone Janes Mason MD [...] 2 - PCV20 or PCV21) 10/24/2019 10/24/2018 [id number] Vaccine ( season) 2025 09/14/2021, 02/24/2021, 01/10/2021 [...] patient's age to complete this topic Insurance [facility] [place] [address] Care Teams Breaker Mechanic Relationship Specialty Start Date End Date Janes Mason MD [address] [place] [address] PCP - General 03/17/21
--- OUTSIDE RECORDS SUMMARY | 2025-10-04 11:38 | XMS_ITS | Encounter Summary ---
Author Organization [employer] ([place], [place], [place], [place], [place]) Address [address] [place] [address] Care Team Providers Care Outside Physical Damage Appraiser Name Role Phone Unavailable Primary Care Provider Unavailabl e Encounter Details Date Type Department Care Team (Late st Contact Info) Description 08/04/2020 Transcribed Document [facility] [place] [address] [place] [address] ProviderDarrell MD [address] [place] [phone] Social History Tobacco Use Types Packs/Day Years [...] visit and the patient has been afebrile. /[id number] Pepe Krishna MD, BLAKE Pain Certified KR/MIRIAN / EN / MODL CC: Dr. Janes Mason Electronically signed by [facility], [facility] Conversion Educational Assistant Cerner at 02/18/2023 4:48 PM CDT documented in this encounter Plan of Treatment Not on file documented as of this encounter Visit Diagnoses Not on filedocumented in this encounter
--- OUTSIDE RECORDS SUMMARY | 2025-10-04 11:38 | XMS_ITS | Encounter Summary ---
Author Organization [employer] ([place], [place], [place], [place], [place]) Address [address] [place] [address] Care Team Providers Care Cnc Lathe Machinist Name Role Phone Unavailable Primary Care Provider Unavailabl e Encounter Details Date Type Department Care Team (Late st Contact Info) Description 10/17/2020 Transcribed Document [facility] [place] Family Medicine [facility] [place] [address] ProviderDarrell MD [address] [place] [phone] Social History Tobacco Use Types Packs/Day Years Used Date Smoking Tobacco: Never Assessed Comments Unknown Sex and Gender Information Value Date Recorded Sex Assigned at Not on file Legal Sex Female 6:16 PM CDT Gender Identity Not on file Sexual Orientation Not on file documented as of this encounter Miscellaneous Notes * Cerner Conversion Note - Historical ProviderMD - 10/17/2020 8:05 PM CASING IN LINE FEEDER Patient: FERMIN BARR Age: 55 Years Sex: [...]
--- OUTSIDE RECORDS SUMMARY | 2025-10-04 11:38 | XMS_ITS | Encounter Summary ---
Author Organization [employer] ([place], [place], [place], [place], [place]) Address [address] [place] [address] Care Team Providers Care Superintendent Operating Name Role Phone Unavailable Primary Care Provider Unavailabl e Encounter Details Date Type Department Care Team (Late st Contact Info) Description 10/17/2020 Transcribed Document [facility] [place] [facility] [place] [address] ProviderDarrell MD [address] [place] [phone] Social History Tobacco Use Types Packs/Day Years Used Date Smoking Tobacco: Never Assessed Comments Unknown Sex and Gender Information Value Date Recorded Sex Assigned at Not on file Legal Sex Female 6:16 PM CDT Gender Identity Not on file Sexual Orientation Not on file documented as of this encounter Miscellaneous Notes * [employer]ner Conversion Note - Historical ProviderMD - 10/17/2020 10:58 PM PLANT MAINTENANCE ENGINEER Electronically signed by [facility] Conversion Procurement Professional Cerner at 02/18/2023 4:55 PM CDT documented in this encounter Plan of Treatment Not on file documented as of this encounter Visit Diagnoses Not on filedocumented in this encounter
--- OUTSIDE RECORDS SUMMARY | 2025-10-04 11:38 | XMS_ITS | Encounter Summary ---
Author Organization [employer] ([place], [place], [place], [place], [place]) Address [address] [place] [address] Care Team Providers Care Crew Dispatcher Name Role Phone Unavailable Primary Care Provider Unavailabl e Encounter Details Date Type Department Care Team (Late st Contact Info) Description 10/17/[address] [facility] [place] [address] ProviderDarrell MD [address] [place] [address] Social History Tobacco Use Types Packs/Day [...] Darrell Flores MD - 10/17/2020 11:07 PM BANKRUPTCY MANAGER [place] [address] MOMO FERMINMARY KATE SAUNDERS :1965 Visit Time:10/17/2020 Your [...] next Follow-Up Appointments Follow Up with MAXIMILIANO LOUISE When Within 2 to 3 days Comments Continue medications as prescribed follow-up with PCP and pulmonology return to the emergency department with new or worsening symptoms. Where: [address] [facility] [address] [address] [place] [address] [facility] (1) Follow Up with REYES BRONSON When Within 2 to 3 days Where: [address] [facility] [address] [facility] [address], [address] [place] [id number] [facility] (1) Allergies Tylenol with Codeine (Vomiting, Nausea, Chest pain) penicillin (Unknown) Immunizations This Visit No Immunizations Found Medications What How Much When Instructions Next Dose acetaminophen-hydrocodone ([place] 7.5 mg-325 mg oral tablet) 1 Tablet(s) [...] range between ( 0.0 and 7.0 ) [place] #: 0.83 K/uL -- Normal range between ( 0.16 and 1.00 ) Eos #: 0.01 x10(3)/uL -- Normal range between ( 0.00 and 0.80 ) [place] %: 4.3 % -- Normal range between [...] these instructions at home: Medicines ??? Take lcqj-eds-bqujsgn and prescription medicines only as told by [...] and water are not available, use hand new car make ready mechanic. Contact a health care provider if: ??? [...] 10/21/2006 Document Revised: 06/18/2019 Document Reviewed: 06/18/2019 [employer] Patient Education ?? 2020 [employer] Emergency Awareness and Preventative Care STROKE [...] Assistance with quitting is available by contacting 2-919-SUWPNOW. This is a free resource providing counseling, support, and referral. Or you may contact your personal physician. [employer] Suicide Prevention Lifeline: The National Suicide Prevention [...] was given the opportunity to ask questions. Patient/Fork Lift Technician Name: Patient/Fork Lift Technician Signature: Relationship to Patient: Clinician/Hospital Fork Lift Technician Signature: Please Provide a Telephone Number Where You Can Be Reached: Is it Permissible To Leave a Message? Date: documented in this encounter Plan of Treatment Not on file documented as of this encounter Visit Diagnoses Not on filedocumented in this encounter
--- OUTSIDE RECORDS SUMMARY | 2025-10-04 11:38 | XMS_ITS | Encounter Summary ---
Author Organization [employer] ([place], [place], [place], [place], [place]) Address [address] [place] [address] Care Team Providers Care Mac Artist Name Role Phone Unavailable Primary Care Provider Unavailabl e Encounter Details Date Type Department Care Team (Late st Contact Info) Description 01/06/[address] [facility] Family Medicine [address] [place] [address] ProviderDarrell MD [address] [place] [id number] Social History Tobacco Use Types Packs/Day Years Used Date Smoking Tobacco: Never Assessed Comments Unknown Sex and Gender Information Value Date Recorded Sex Assigned at Not on file Legal Sex Female 6:16 PM CDT Gender Identity Not on file Sexual Orientation Not on file documented as of this encounter Miscellaneous Notes * [employer] Conversion Note - Darrell ProviderMD - 01/06/2021 12:30 PM CAR DUMPER OPERATOR HELPER [facility] [employer] PreOp Summary Primary Physician: SEA OLSON MD Finalized Date/Time: 01/06/21 12:22:57 Pt. Name: FERMIN BARR/Sex: 1965 Female Med Rec #: [id number] Physician: SEA OLSON MD Financial #: [id number] Pt. Type: O Room/Bed: END/ Admit/Disch: 01/06/21 11:16:00 - Institution: [facility] [employer] PreOp Case Times Entry 1 In Preop 01/06/21 12:05:00 Ready for Holding n/a Room Patient Ready for n/a Surgery Patient Out of Preop 01/06/21 12:22:00 Patient Out of n/a Holding Room Last Modified By: Ligia Walter RN 01/06/21 12:22:55 Finalized By: Ligia Walter, RN Document Signatures Signed By: Ligia Walter RN 01/06/21 12:22 Electronically signed by [employer] [facility] Conversion [employer] Commissioner [employer] at 02/18/2023 4:51 PM CDT documented in this encounter Plan of Treatment Not on file documented as of this encounter Visit Diagnoses Not on filedocumented in this encounter
--- OUTSIDE RECORDS SUMMARY | 2025-10-04 11:38 | XMS_ITS | Encounter Summary ---
Author Organization [employer] ([place], [place], [place], [place], [place]) Address [address] [place] [address] Care Team Providers Care Utilities Equipment Repairer Name Role Phone Unavailable Primary Care Provider Unavailabl e Encounter Details Date Type Department Care Team (Late st Contact Info) Description 01/04/2021 Transcribed Document [facility] Family [place] [facility] [place] [address] ProviderDarrell MD [address] [place] [phone] Social History Tobacco Use Types Packs/Day Years Used Date Smoking Tobacco: Never Assessed Comments Unknown Sex and Gender Information Value Date Recorded Sex Assigned at Not on file Legal Sex Female 6:16 PM CDT Gender Identity Not on file Sexual Orientation Not on file documented as of this encounter Miscellaneous Notes * [employer] Conversion Note - Darrell ProviderMD - 01/04/2021 2:39 PM CAFETERIA ATTENDANT DATE OF SERVICE: 12/21/2020 The patient's height [...] for oxygen therapy. Clinical correlation is suggested. /[id number] MD XIAO Roberson/MIRIAN / XIAO / MODL /[id number] Electronically signed by [facility], [facility] Conversion Power Reactor Supervisor [employer] at 02/18/2023 5:14 PM CDT documented in this encounter Plan of Treatment Not on file documented as of this encounter Visit Diagnoses Not on filedocumented in this encounter
--- OUTSIDE RECORDS SUMMARY | 2025-10-04 11:38 | XMS_ITS | Encounter Summary ---
Author Organization [employer] ([place], [place], [place], [place], [place]) Address [address] [place] [address] Care Team Providers Care Waste And Batting Waste Chopper Name Role Phone Unavailable Primary Care Provider Unavailabl e Encounter Details Date Type Department Care Team (Late st Contact Info) Description 09/02/2020 Transcribed Document [facility] Family Medicine [address] [place] [address] ProviderDarrell MD [address] [place] [address] Social History Tobacco Use Types Packs/Day Years [...] help with the pain. She is taking Mondamin 3 times daily as needed and Lyrica [...] with alcohol, or self-escalate it. 2. Continue Mondamin 7.5/325 mg 3 times daily as needed. [...] visit and the patient has been afebrile. /[id number] FLOYD Mullins/MIRIAN / PITA / MODL CC: Janes Mason MD documented in this encounter Plan of Treatment Not on file documented as of this encounter Visit Diagnoses Not on filedocumented in this encounter
--- OUTSIDE RECORDS SUMMARY | 2025-10-04 11:38 | XMS_ITS | Encounter Summary ---
Author Organization [employer] ([place], [place], [place], [place], [place]) Address [address] [place] [address] Care Team Providers Care Customer Account Representative Name Role Phone Unavailable Primary Care Provider Unavailabl e Encounter Details Date Type Department Care Team (Late st Contact Info) Description 10/30/2018 Transcribed Document [facility] Family Medicine [facility] [place] [address] Darrell Flores MD [address] [place] [phone] Social History Tobacco Use Types Packs/Day Years Used Date Smoking Tobacco: Never Assessed Comments Unknown Sex and Gender Information Value Date Recorded Sex Assigned at Not on file Legal Sex Female 6:16 PM CDT Gender Identity Not on file Sexual Orientation Not on file documented as of this encounter Miscellaneous Notes * [employer] Conversion Note - Historical ProviderMD - 10/30/2018 1:58 PM WIND TURBINE MECHANIC DATE OF ADMISSION: 10/30/2018 HISTORY OF PRESENT [...] 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 She states that they are starting on Symbicort and Spiriva to try to help her with it. The patient states that also they did tell her that she does have a small lung nodule in her lower lobe and that will heal itself. The patient does continue to take [place] 7.5/325 mg 2-3 times a day as [...] radiculopathy. 4. Cervical spondylosis. PLAN: 1. Refill [place] 7.5/325 mg 2-3 times a day as [...]
--- OUTSIDE RECORDS SUMMARY | 2025-10-04 11:38 | XMS_ITS | Encounter Summary ---
Author Organization [employer] ([place], [place], [place], [place], [place]) Address [address] [place] [address] Care Team Providers Care Wood Heel Cementer Name Role Phone Unavailable Primary Care Provider Unavailabl e Encounter Details Date Type Department Care Team (Late st Contact Info) Description 10/18/2020 Transcribed Document [facility] Family Medicine [facility] [place] [address] ProviderDarrell MD [facility] [place], [place] [address] Social History Tobacco Use Types Packs/Day Years Used Date Smoking Tobacco: Never Assessed Comments Unknown Sex and Gender Information Value Date Recorded Sex Assigned at Not on file Legal Sex Female 6:16 PM CDT Gender Identity Not on file Sexual Orientation Not on file documented as of this encounter Miscellaneous Notes * [employer] Conversion Note - Historical ProviderMD - 10/18/2020 9:38 AM AWS DEVELOPER CR Chest 2 Vws Ordered: 10/17/2020 Auth (Verified) Reason for Exam: SOA 10/18/2020 08:53 10/18/2020 09:38 (QUANG OLIVA APRN) Reviewed by Provider, No further action required x1 documented in this encounter Plan of Treatment Not on file documented as of this encounter Visit Diagnoses Not on filedocumented in this encounter
--- OUTSIDE RECORDS SUMMARY | 2025-10-04 11:38 | XMS_ITS | Encounter Summary ---
Author Organization [employer] ([place], [place], [place], [place], [place]) Address [address] [place] [address] Care Team Providers Care Picker Machine Operator Name Role Phone Unavailable Primary Care Provider Unavailabl e Encounter Details Date Type Department Care Team (Late st Contact Info) Description 10/17/2020 Transcribed Document [facility] [place] [address] [place] [address] ProviderDarrell MD [address] [place] [address] Social History Tobacco Use Types Packs/Day Years Used Date Smoking Tobacco: Never Assessed Comments Unknown Sex and Gender Information Value Date Recorded Sex Assigned at Not on file Legal Sex Female 6:16 PM CDT Gender Identity Not on file Sexual Orientation Not on file documented as of this encounter Miscellaneous Notes * [employer] Conversion Note - Historical ProviderMD - 10/17/2020 4:38 PM COUNTER TOP MAKER [place] Suicide Severity Rating Scale (C-SSRS) Entered On: 10/17/2020 22:43 EST Performed On: 10/17/2020 22:40 EST by Jeannette Fuller RN [place] Suicide Severity Rating Scale (C-SSRS) CSSRS Past Month Wish to be : No CSSRS Past Month Suicidal Thoughts : No CSSRS Lifetime Suicide Behavior : No Suicide Severity Rating Score : 0 Suicide Severity Rating : No Additional Care Required at this time Jeannette Fuller RN - 10/17/2020 22:40 EST Electronically signed by Paul Grubbs Conversion Medical Billing And Coding Instructor Cerner at 02/18/2023 4:51 PM CDT documented in this encounter Plan of Treatment Not on file documented as of this encounter Visit Diagnoses Not on filedocumented in this encounter
--- OUTSIDE RECORDS SUMMARY | 2025-10-04 11:39 | XMS_ITS | Encounter Summary ---
Author Organization [employer] ([place], [place], [place], [place], [place]) Address [address] [place] [address] Care Team Providers Care Deck Builder Name Role Phone Unavailable Primary Care Provider Unavailabl e Encounter Details Date Type Department Care Team (Late st Contact Info) Description 05/11/2019 Transcribed Document [facility] Family Medicine [facility] [address] ProviderDarrell MD [address] [place] [address] Social History Tobacco Use Types Packs/Day Years [...] says that she has been taking her [place] 2-3 times daily as needed. The patient [...] Lyrica 100 mg 3 times daily and [place] 7.5/325 mg 2-3 times daily as needed. [...] to give the patient 7.5/325 mg of [place] 3 times a day consistently with #90 [...] Janes Mason Electronically signed by [employer] [facility] Conversion Marketing Support Assistant Cerner at 02/18/2023 5:01 PM CDT documented in this encounter Plan of Treatment Not on file documented as of this encounter Visit Diagnoses Not on filedocumented in this encounter
--- OUTSIDE RECORDS SUMMARY | 2025-10-04 11:39 | XMS_ITS | Encounter Summary ---
Author Organization [employer] ([place], [place], [place], [place], [place]) Address [address] [place] [address] Care Team Providers Care Weight Reduction Specialist Name Role Phone Unavailable Primary Care Provider Unavailabl e Encounter Details Date Type Department Care Team (Late st Contact Info) Description 09/24/2019 Transcribed Document [facility] [place] [facility] [place] [address] Darrell Flores MD [address] [place] [phone] Social History Tobacco Use Types Packs/Day Years Used Date Smoking Tobacco: Never Assessed Comments Unknown Sex and Gender Information Value Date Recorded Sex Assigned at Not on file Legal Sex Female 6:16 PM CDT Gender Identity Not on file Sexual Orientation Not on file documented as of this encounter Miscellaneous Notes * [employer] Conversion Note - Darrell Flores MD - 09/24/2019 11:59 AM SPEECH LANGUAGE PATHOLOGIST ASSISTANT DATE OF PROCEDURE: 09/24/2019 SURGEON: Pepe Krishna [...] to continue with the same plan. 1. [place] 7.5/325 three times a day. 2. Lyrica 100 mg 3 times a day. 3. Robaxin 750 mg 3 times a day. 4. Movantik 25 mg 1 a day. 5. I am going to see the patient after 2 to 4 weeks to re-evaluate her. /[id number] Pepe Krishna MD, BLAKE Pain Certified EN/MIRIAN / EN / MODL /[id number] Electronically signed by [employer], [facility] Conversion Community Center Director Cerner at 02/18/2023 5:03 PM CDT documented in this encounter Plan of Treatment Not on file documented as of this encounter Visit Diagnoses Not on filedocumented in this encounter
--- OUTSIDE RECORDS SUMMARY | 2025-10-04 11:39 | XMS_ITS | Encounter Summary ---
Author Organization [employer] ([place], [place], [place], [place], [place]) Address [address] [place] [address] Care Team Providers Care Doughnut Icer Name Role Phone Unavailable Primary Care Provider Unavailabl e Encounter Details Date Type Department Care Team (Late st Contact Info) Description 01/06/2021 Transcribed Document [facility] [place] [facility] [place] [address] ProviderDarrell MD [address] [place] [address] [id number] Social History Tobacco Use Types Packs/Day Years Used Date Smoking Tobacco: Never Assessed Comments Unknown Sex and Gender Information Value Date Recorded Sex Assigned at Not on file Legal Sex Female 6:16 PM CDT Gender Identity Not on file Sexual Orientation Not on file documented as of this encounter Miscellaneous Notes * Cerner Conversion Note - Darrell ProviderMD - 01/06/2021 12:45 PM DIRECTOR OF CLAIMS [facility] Endo IntraOp Summary Primary Physician: SEA OLSON MD Finalized Date/Time: 01/06/21 13:06:19 Pt. Name: FERMIN BARR/Sex: 1965 Female Med Rec #: [id number] Physician: SEA OLSON MD Financial #: [id number] Pt. Type: O Room/Bed: END/ Admit/Disch: 01/06/21 11:16:00 - Institution: [facility] Endo - Case Attendance Entry 1 Entry 2 Entry 3 Case Attendee SEA OLSON MD GHANSAH, NANA DADZIE, Mcclintock, Molly, Rn -ANS Role Performed Surgeon/Proceduralist, Anesthesiologist of Skin Toggler, First First Record Time In 01/06/21 12:38:00 [...] BURGESS, MONICA ZEPEDA, LATISHA SHELLEY Role Performed Skin Toggler, Second Scrub, First WAITER/WAITRESS HEAD/Nurse Ctrs Time In 01/06/21 12:38:00 01/06/21 12:38:00 01/06/21 12:38:00 Time Out 01/06/21 13:08:00 01/06/21 13:08:00 01/06/21 13:08:00 Procedure Gastric Biopsy, Gastric Biopsy, Gastric Biopsy, Esophageal Biopsy, Esophageal Biopsy, Esophageal Biopsy, Esophageal Dilatation Esophageal Dilatation Esophageal Dilatation Other Attendee Superficial Wound Closed By: Last Modified By: Moira Jensen Rn Mcclintock, Molly, Moira Sanchez, Lou 01/06/21 13:05:47 01/06/21 13:05:47 01/06/21 13:05:47 [facility] Endo - Case Attendance Audit 01/06/21 13:05:47 Enginehouse Brakeman: [id number] Modifier: [id number] <+> Time Out 1 <*> Procedure [...] Biopsy, Esophageal Biopsy, Esophageal Dilatation 01/06/21 12:48:41 Enginehouse Brakeman: [id number] Modifier: [id number] 1 <*> Procedure Colonoscopy, Esophagogastroduodenoscopy, Gastric Biopsy, Esophageal Biopsy 2 <*> Procedure Gastric Biopsy, Esophageal Biopsy 3 <*> Procedure Gastric Biopsy, Esophageal Biopsy 4 <*> Procedure Gastric Biopsy, Esophageal Biopsy 5 <*> Procedure Gastric Biopsy, Esophageal Biopsy 6 <*> Procedure Gastric Biopsy, Esophageal Biopsy 01/06/21 12:45:26 Enginehouse Brakeman: [id number] Modifier: [id number] 1 <*> Procedure Colonoscopy, Esophagogastroduodenoscopy, Gastric Biopsy 2 <*> Procedure Gastric Biopsy 3 <*> Procedure Gastric Biopsy 4 <*> Procedure Gastric Biopsy 5 <*> Procedure Gastric Biopsy 6 <*> Procedure Gastric Biopsy 01/06/21 12:44:50 Enginehouse Brakeman: [id number] Modifier: [id number] 1 <*> Procedure Colonoscopy, Esophagogastroduodenoscopy <+> 2 Procedure <+> 3 Procedure <+> 4 Procedure <+> 5 Procedure <+> 6 Procedure 01/06/21 12:41:08 Enginehouse Brakeman: [id number] Modifier: [id number] <*> Case Attendee LANA HERRMANN MD-ANS 01/06/21 12:40:29 Enginehouse Brakeman: [id number] Modifier: [id number] 1 <+> Time In 1 <*> Procedure Colonoscopy, Esophagogastroduodenoscopy <+> 2 Time In <+> 3 Time In <+> 4 Time In <+> 5 Time In <+> 6 Time In 01/06/21 12:31:04 Enginehouse Brakeman: [id number] Modifier: [id number] <+> 2 Case Attendee <+> 2 Role Performed <+> 3 Case Attendee <+> 3 Role Performed <+> 4 Case Attendee <+> 4 Role Performed <+> 5 Case Attendee <+> 5 Role Performed <+> 6 Case Attendee <+> 6 Role Performed [facility] Endo - Case times Entry 1 Patient In Room Time 01/06/21 12:38:00 Out Room Time 01/06/21 13:08:00 Anesthesia Start Time 01/06/21 12:38:00 Stop Time 01/06/21 13:08:00 Surgery / Procedure Times Start Time 01/06/21 12:45:00 Stop Time 01/06/21 13:05:00 Last Modified By: Moira Jensen Rn 01/06/21 13:05:33 [facility] Endo - Case times Audit 01/06/21 13:05:33 Enginehouse Brakeman: [id number] Modifier: [id number] <+> 1 Out Room Time <+> 1 Stop Time <+> 1 Stop Time 01/06/21 12:47:15 Enginehouse Brakeman: [id number] Modifier: [id number] <+> 1 Start Time [facility] Endo - Cultures and Spec Summary Entry 1 Cultrures and Specimens Specimen Ordered: Yes Test(s) Routine/Path-Lab Requested/Final Disposition Last Modified By: Moira Jensen Rn 01/06/21 12:47:42 [facility] Endo - Delays Entry 1 Delay Reason Other, No Delay Duration 0 Minute(s) Last Modified By: Moira Jensen Rn 01/06/21 12:31:14 [facility] Endo - Departure from OR Entry 1 Integumentary Assessment Integumentary WDL Assessment WDL Transfer/Handoff Transfer to PACU Phase I Post-op Transport Stretcher/Gurney Via Patient Transport Moira Jensen Rn Accompanied by Last Modified By: Moira Jensen Rn 01/06/21 12:40:40 [facility] Endo - Departure from OR Audit 01/06/21 12:40:40 Enginehouse Brakeman: [id number] Modifier: [id number] 1 <*> Patient Transport Accompanied by Moira Jensen, Rn 1 <-> Handoff Method Bedside/Face to face [facility] Endo - Endoscopy Details Entry 1 Abdomen Procedure Soft, Non-Tender Assessment Procedure Abdomen 01/06/21 12:38:00 Assessment D/T Radio Frequency Ablation Abdominal Pressure Last Modified By: Moira Jensen Rn 01/06/21 12:38:50 [facility] Endo - Fire Risk Assessment Entry 1 Fire Info Surgical Site or 1- Yes Incision Above the Xyphoid Open O2 Source 1- Yes (Mask or Cannula) Available Ignition 1- Yes (ESU, Laser, Light Source) Fire Risk 3 Assessment Score Fire Score Fire Risk Yes Assessment Complete Fire Risk Moira Jensen, Berry Picker Machine Operator Verified By Fire Risk 01/06/21 12:39:00 Assessment Verified Date/Time Fire Risk High Risk Protocol Yes Implemented Standard Fire Yes Safety Precautions Followed Last Modified By: Moira Jensen Rn 01/06/21 12:39:28 [facility] Endo - Fire Risk Assessment Audit 01/06/21 12:39:28 Enginehouse Brakeman: [id number] Modifier: [id number] <+> 1 Fire Risk Assessment Complete <+> 1 Fire Risk Assessment Verified Date/Time [facility] Endo - General Case Director Software 1 Case Information OR Endo 03 [facility] Case Level 1 Room Verified Yes Wound Class III - Contaminated Specialty SN Gastroenterology Anesthesia Type General ASA Class 3 Diagnosis Preop Diagnosis dysphagia/screening Postop Same As Preop Yes Postop Diagnosis dysphagia/screening Last Modified By: Moira Jensen Rn 01/06/21 12:39:17 [facility] Endo - General Case Data Audit 01/06/21 12:39:17 Enginehouse Brakeman: [id number] Modifier: [id number] <+> 1 ASA Class <+> 1 Postop Same As Preop <+> 1 Preop Diagnosis <+> 1 Postop Diagnosis [facility] Endo - Intraoperative Assessment Entry 1 Valid History / Yes Physical in Chart Preoperative Yes Checklist Reviewed/Evaluated Patient is Latex No Sensitive Level of WDL Consciousness (WDL = Alert, Oriented to Person, Place, and Time) Last Modified By: Moira Jensen Rn 01/06/21 12:31:39 [facility] Endo - Intraoperative Equipment Entry 1 Equipment Intraop Monitoring Electrocardiogram Three lead placement (ECG) Electrode Placement Blood Pressure Arm, left upper Location Pulse Oximeter Hand, right Probe Site Antiembolic Devices Scopes Flexible Endoscopes Gastroscope Used Scope Serial N, K Number/Identificatio n Number Photo/Video Documentation Photo Yes Video No Last Modified By: Moira Jensen Rn 01/06/21 12:41:53 [facility] Endo - Intraoperative Equipment Audit 01/06/21 12:41:53 Enginehouse Brakeman: [id number] Modifier: [id number] 1 <*> Photo Yes 1 <*> Video No 1 <*> Electrocardiogram (ECG) Electrode Three lead placement Placement 1 <*> Blood Pressure Location Arm, left upper 1 <*> Pulse Oximeter Probe Site Hand, right 1 <*> Flexible Endoscopes Used Gastroscope 1 <+> Scope Serial Number/Identification Number [facility] Endo - Patient Positioning Entry 1 [...] Modified By: Moira Jensen Rn 01/06/21 12:48:41 [facility] Endo - Patient Positioning Audit 01/06/21 12:48:41 Enginehouse Brakeman: [id number] Modifier: [id number] 1 <*> Procedure Esophagogastroduodenoscopy, Gastric Biopsy, Esophageal Biopsy 01/06/21 12:45:27 Enginehouse Brakeman: [id number] Modifier: [id number] 1 <*> Procedure Esophagogastroduodenoscopy, Gastric Biopsy 01/06/21 12:44:50 Enginehouse Brakeman: [id number] Modifier: [id number] 1 <*> Procedure Esophagogastroduodenoscopy [facility] Endo - Sign In Entry 1 Patient, Site, Yes Procedure Identified Surgical Consent Yes Confirmed Surgical Site N/A Marked by person performing procedure Airway Hypothermia Risk No Warming Measures No Taken Last Modified By: Moira Jensen Rn 01/06/21 12:31:56 [facility] Endo - Sign Out Entry 1 [...] Modified By: Moira Jensen Rn 01/06/21 13:05:40 [facility] Endo - Surgical Procedures Entry 1 [...] Cecum Reached Anesthesia Type MAC MAC Specialty Gastroenterology Gastroenterology Wound Class II - Clean-Contaminated II - Clean-Contaminated Last Modified By: Moira Jensen, Moira Sanchez, Lou 01/06/21 13:05:42 01/06/21 13:05:42 [facility] Endo - Surgical Procedures Audit 01/06/21 13:05:42 Enginehouse Brakeman: [id number] Modifier: [id number] <+> 3 Stop <+> 4 Stop <+> 5 Stop 01/06/21 13:05:13 Enginehouse Brakeman: [id number] Modifier: [id number] 1 <*> Procedure Colonoscopy 1 <*> Start 01/06/21 12:45:00 1 <+> Stop 1 <+> Physician States Cecum Reached 2 <*> Procedure Esophagogastroduodenoscopy 2 <+> Stop 01/06/21 12:48:40 Enginehouse Brakeman: [id number] Modifier: [id number] <+> 5 Procedure <+> 5 Primary Procedure <+> 5 Primary Surgeon <+> 5 Specialty <+> 5 Start <+> 5 Wound Class <+> 5 Anesthesia Type 01/06/21 12:47:35 Enginehouse Brakeman: [id number] Modifier: [id number] <+> 1 Start <+> 2 Start <+> 3 Start <+> 4 Start 01/06/21 12:45:25 Enginehouse Brakeman: [id number] Modifier: [id number] <+> 4 Procedure <+> 4 Primary Procedure <+> 4 Primary Surgeon <+> 4 Specialty <+> 4 Wound Class <+> 4 Anesthesia Type 01/06/21 12:44:49 Enginehouse Brakeman: [id number] Modifier: [id number] <+> 3 Procedure <+> 3 Primary Procedure <+> 3 Primary Surgeon <+> 3 Specialty <+> 3 Wound Class <+> 3 Anesthesia Type <+> 3 Additional Procedure Description [facility] Endo - Time Out Entry 1 [...] Modified By: Moira Jensen Rn 01/06/21 12:48:42 [facility] Endo - Time Out Audit 01/06/21 12:48:42 Enginehouse Brakeman: [id number] Modifier: [id number] 1 <*> Procedure to be Performed Colonoscopy, Esophagogastroduodenoscopy, Gastric Biopsy, Esophageal Biopsy 01/06/21 12:45:27 Enginehouse Brakeman: [id number] Modifier: [id number] 1 <*> Procedure to be Performed Colonoscopy, Esophagogastroduodenoscopy, Gastric Biopsy 01/06/21 12:44:51 Enginehouse Brakeman: [id number] Modifier: [id number] 1 <*> Procedure to be Performed Colonoscopy, Esophagogastroduodenoscopy Case Comments <None> Finalized By: Moira Jensen, Rn Document Signatures Signed By: Moira Jensen Rn 01/06/21 13:06 Electronically signed by [facility] Conversion Business Professor Cerner at 02/18/2023 5:01 PM CDT documented in this encounter Plan of Treatment Not on file documented as of this encounter Visit Diagnoses Not on filedocumented in this encounter
--- OUTSIDE RECORDS SUMMARY | 2025-10-04 11:39 | XMS_ITS | Encounter Summary ---
Author Organization [employer] ([place], [place], [place], [place], [place]) Address [address] [place] [address] Care Team Providers Care Field Ring Assembler Name Role Phone Unavailable Primary Care Provider Unavailabl e Encounter Details Date Type Department Care Team (Late st Contact Info) Description 11/10/2019 Transcribed Document [facility] [place] [address] [place] [address] ProviderDarrell MD [address] [place] [address] Social History Tobacco Use Types Packs/Day Years Used Date Smoking Tobacco: Never Assessed Comments Unknown Sex and Gender Information Value Date Recorded Sex Assigned at Not on file Legal Sex Female 6:16 PM CDT Gender Identity Not on file Sexual Orientation Not on file documented as of this encounter Miscellaneous Notes * Cerner Conversion Note - Historical ProviderMD - 11/10/2019 8:58 AM CIS COORDINATOR DATE OF ADMISSION: 11/09/2019 HISTORY OF [...] home exercises in addition to taking her [place] 3 times daily as needed and her Lyrica 3 times daily. The patient says that she is currently seeing a hvac/r service technician every 3 months due to some respiratory [...] if we could refer her to a health aid that she would like to be evaluated [...] with alcohol, or self-escalate it. 2. Continue [place] 7.5/325 mg 3 times daily as needed. [...] medications for this patient's treatment plan today. /[id number] DICTATED BY: Jazz Orta APRN for Pepe Krishna MD, BLAKE Pain Certified Pepe Krishna MD, BLAKE Pain Certified PITA/AQ / PITA / MODL CC: FLOYD Lazo MD Electronically signed by [facility], [facility] Conversion Audit Lead Cerner at 02/18/2023 5:00 PM CDT documented in this encounter Plan of Treatment Not on file documented as of this encounter Visit Diagnoses Not on filedocumented in this encounter
--- OUTSIDE RECORDS SUMMARY | 2025-10-04 11:39 | XMS_ITS | Encounter Summary ---
Author Organization [employer] ([place], [place], [place], [place], [place]) Address [address] [place] [address] Care Team Providers Care Director Fraud Name Role Phone Unavailable Primary Care Provider Unavailabl e Encounter Details Date Type Department Care Team (Late st Contact Info) Description 01/18/2020 Transcribed Document [facility] Family Medicine [address] [place] [address] ProviderDarrell MD [address] [place] [address] Social History Tobacco Use Types Packs/Day Years [...] her Lyrica 3 times daily and her [place] 3 times daily as needed. The patient says that the use of the medication makes her more functional. She denies any adverse effects including toxic effect, sedation, driving problems, or GI problems. The patient says she did go to the Rheumatology appointment and had lots of blood work done, but has not gotten the results yet and has a followup with the yarrow gatherer in February. REVIEW OF SYSTEMS: The patient [...] 100 mg 3 times daily. 3. Continue [place] 7.5/325 mg 3 times daily as needed. [...] medications for this patient's treatment plan today. /[id number] FLOYD Mullins/MIRIAN / PITA / MODL CC: MD Nneka Alcantar APRN Electronically signed by [employer] [facility] Conversion Senior Benefits Analyst Cerner at 02/18/2023 4:48 PM CDT documented in this encounter Plan of Treatment Not on file documented as of this encounter Visit Diagnoses Not on filedocumented in this encounter
--- OUTSIDE RECORDS SUMMARY | 2025-10-04 11:39 | XMS_ITS | Encounter Summary ---
Author Organization Healthcare Address [address] [place] [address] Care Team Providers Care Elementary Art Teacher Name Role Phone Janes Mason MD Primary Care Provider [phone] Encounter Details Date Type Department Care Team (Late st Contact Info) Description 02/28/2023 [facility] [address] [place] [address] Bud Shea MD [address] [facility], [address] [address] Other headache syndrome (Primary Dx) Social History [...] Primary documented in this encounter Care Teams Elementary Art Teacher Relationship Specialty Start Date End Date Janes Mason MD [address] [place] [address] PCP - General 03/17/21 documented as of this encounter
--- OUTSIDE RECORDS SUMMARY | 2025-10-04 11:39 | XMS_ITS | Encounter Summary ---
Author Organization [employer] ([place], [place], [place], [place], [place]) Address [address] [place] [address] Care Team Providers Care Adult Protective Caseworker Name Role Phone Unavailable Primary Care Provider Unavailabl e Encounter Details Date Type Department Care Team (Late st Contact Info) Description 09/17/2019 Transcribed Document [facility] [place] [facility] [address] Darrell Flores MD [address] [place] [id number] Social History Tobacco Use Types Packs/Day Years Used Date Smoking Tobacco: Never Assessed Comments Unknown Sex and Gender Information Value Date Recorded Sex Assigned at Not on file Legal Sex Female 6:16 PM CDT Gender Identity Not on file Sexual Orientation Not on file documented as of this encounter Miscellaneous Notes * [employer] Conversion Note - Historical ProviderMD - 09/17/2019 1:43 PM SHIPPING CLERK DATE OF ADMISSION: 09/17/2019 HISTORY: This is [...] 1 to 2 weeks to re-evaluate her. /[id number] Pepe Krishna MD, BLAKE Pain Certified EN/MIRIAN / EN / MODL CC: Janes Mason M.D. Electronically signed by [facility], [facility] Conversion Delivery Driver/Customer Service Cerner at 02/18/2023 5:03 PM CDT documented in this encounter Plan of Treatment Not on file documented as of this encounter Visit Diagnoses Not on filedocumented in this encounter
--- OUTSIDE RECORDS SUMMARY | 2025-10-04 11:39 | XMS_ITS | Encounter Summary ---
Author Organization [employer] ([place], [place], [place], [place], [place]) Address [address] [place] [address] Care Team Providers Care Screw Machine Set Up Operator Tool Name Role Phone Unavailable Primary Care Provider Unavailabl e Encounter Details Date Type Department Care Team (Late st Contact Info) Description 01/06/2021 Transcribed Document [facility] [place] Medicine [facility] [place] [address] ProviderDarrell MD [address] [place] [address] Social History Tobacco Use Types Packs/Day Years Used Date Smoking Tobacco: Never Assessed Comments Unknown Sex and Gender Information Value Date Recorded Sex Assigned at Not on file Legal Sex Female 6:16 PM CDT Gender Identity Not on file Sexual Orientation Not on file documented as of this encounter Miscellaneous Notes * Cerner Conversion Note - Darrell ProviderMD - 01/06/2021 1:08 PM WIG SALES CONSULTANT [facility] [place] [phone] FERMIN BARR :1965 Visit Time:01/06/2021 What to [...] OLSON When Only if needed Where: [address] [facility] [address] [place] [id number]- [facility] (1) Medications What How Much When Instructions [...] times a day. General instructions ??? Take bspb-clk-hlrmuph and prescription medicines only as told by [...] 07/30/2009 Document Revised: 10/29/2019 Document Reviewed: 03/12/2019 [employer] Patient Education ?? 2020 [employer] Instructions for after EGD with Dilation [...] activities are safe for you. ??? Take hfwm-lcz-heojtpt and prescription medicines only as told by [...] 01/27/2002 Document Revised: 10/24/2018 Document Reviewed: 06/06/2018 [employer] Patient Education ?? 2020 [employer] Emergency Awareness and Preventative Care STROKE [...] Assistance with quitting is available by contacting 3-390-VRTH-NOW. This is a free resource providing counseling, [...] was given the opportunity to ask questions. Patient/Helpdesk Technician Name: Patient/Helpdesk Technician Signature: Relationship to Patient: Clinician/Hospital Helpdesk Technician Signature: Date: documented in this encounter Plan of Treatment Not on file documented as of this encounter Visit Diagnoses Not on filedocumented in this encounter
--- OUTSIDE RECORDS SUMMARY | 2025-10-04 11:39 | XMS_ITS | Clinical Summary ---
Author Organization [employer] ([place], [place], [place], [place], [place]) Address [address] [place] [address] Care Team Providers Care Station Inspector Name Role Phone Unavailable Primary Care [...] HYDROcodone-elaine taminophen (NORCO) 5-325 mg per tablet [place] 5 mg-325 mg tablet Take 1 tablet [...] 10/10/2021, 10/24/2018 Insurance MEDICARE PART A B BLUE CROSS/BLUE SHIELD Member Subscriber Plan / Payer (Ef fective 2023-Present) Name:Darshana Barr Relation to Subscriber:Self Name:Darshana Barr Payer ID:Not on file Group ID:[id number] Type:Not on file Address: [facility] [place] [id number] [place] [id number]
--- OUTSIDE RECORDS SUMMARY | 2025-10-04 11:39 | XMS_ITS | Encounter Summary ---
Author Organization [employer] ([place], [place], [place], [place], [place]) Address [address] [place] [address] Care Team Providers Care Inclusion Intern Name Role Phone Unavailable Primary Care Provider Unavailabl e Encounter Details Date Type Department Care Team (Late st Contact Info) Description 12/15/2019 Transcribed Document [facility] [place] [address] ProviderDarrell MD [address] [place] [address] Social History Tobacco Use Types Packs/Day Years Used Date Smoking Tobacco: Never Assessed Comments Unknown Sex and Gender Information Value Date Recorded Sex Assigned at Not on file Legal Sex Female 6:16 PM CDT Gender Identity Not on file Sexual Orientation Not on file documented as of this encounter Miscellaneous Notes * [employer]ner Conversion Note - Historical ProviderMD - 12/15/2019 1:46 PM OPERATOR AUTOMATED PROCESS DATE OF ADMISSION: 12/15/2019 HISTORY OF PRESENT [...] Lyrica 100 mg three times daily, and [place] 7.5/325 mg three times daily as needed. [...] 100 mg three times daily. 4. Continue [place] 7.5/325 mg three times daily as needed. [...] patient to attend her workup with the filling and packing supervisor. 9. We are going to see the patient back in 1 month to re-evaluate. 10. The assessment and plan for today's visit have been reviewed by Dr. Krishna, however, I have prescribed the medications for this patient's treatment plan today. /[id number] Jazz Orta APRN PITA/AQ / PITA / MODL CC: MD Nneka Alcantar APRN documented in this encounter Plan of Treatment Not on file documented as of this encounter Visit Diagnoses Not on filedocumented in this encounter
--- OUTSIDE RECORDS SUMMARY | 2025-10-04 11:39 | XMS_ITS | Encounter Summary ---
Author Organization [employer] ([place], [place], [place], [place], [place]) Address [address] [place] [address] Care Team Providers Care Flagman Name Role Phone Unavailable Primary Care Provider Unavailabl e Encounter Details Date Type Department Care Team (Late st Contact Info) Description 08/17/2019 Transcribed Document [facility] [place] [facility] [address] ProviderDarrell MD [address] [place] [address] Social History Tobacco Use Types Packs/Day Years [...] Dr. Janes Mason Electronically signed by [facility] Conversion Foiling Machine Operator Cerner at 02/18/2023 4:52 PM CDT documented in this encounter Plan of Treatment Not on file documented as of this encounter Visit Diagnoses Not on filedocumented in this encounter
--- OUTSIDE RECORDS SUMMARY | 2025-10-04 11:39 | XMS_ITS | Encounter Summary ---
Author Organization [employer] ([place], [place], [place], [place], [place]) Address [address] [place] [address] Care Team Providers Care Vocational Services Specialist Name Role Phone Unavailable Primary Care Provider Unavailabl e Encounter Details Date Type Department Care Team (Late st Contact Info) Description 01/06/2021 Transcribed Document [facility] [place] Family Medicine [facility] [place] [address] ProviderDarrell MD [address] [place], [place] [id number] Social History Tobacco Use Types Packs/Day Years Used Date Smoking Tobacco: Never Assessed Comments Unknown Sex and Gender Information Value Date Recorded Sex Assigned at Not on file Legal Sex Female 6:16 PM CDT Gender Identity Not on file Sexual Orientation Not on file documented as of this encounter Miscellaneous Notes * Cerner Conversion Note - Darrell ProviderMD - 01/06/2021 1:08 PM URGENT CARE Patient Education Materials Follows: Hemorrhoids Hemorrhoids are [...] times a day. General instructions ??? Take bmkk-ito-nwztxja and prescription medicines only as told by [...] 07/30/2009 Document Revised: 10/29/2019 Document Reviewed: 03/12/2019 [employer] Patient Education ? 2020 [employer] Instructions for after EGD with Dilation [...] activities are safe for you. ??? Take gagz-kyn-akrrtoi and prescription medicines only as told by [...] 01/27/2002 Document Revised: 10/24/2018 Document Reviewed: 06/06/2018 [employer] Patient Education ? 2020 [employer]. documented in this encounter Plan of Treatment Not on file documented as of this encounter Visit Diagnoses Not on filedocumented in this encounter
--- OUTSIDE RECORDS SUMMARY | 2025-10-04 11:39 | XMS_ITS | Clinical Summary ---
Author Organization [facility] Address [address] [place] [address] Care Team Providers Care Brim Setter Name Role Phone Janes Mason MD Primary Care Provider [phone] Allergies Active Allergy Reactions Criticality Noted Date [...] of 2) 2017 INFLUENZA VACCINE (#1) 2025 CT Colonography Completed HEP A VACCINE Aged Out No longer elig ible based on patient's age to complete this topic HIB VACCINE Aged Out No longer eligi ble based on patient's age to complete this topic ROTOVIRUS VACCINE Aged Out No longer eligible based on patient's age to complete this topic Insurance Care Teams Brim Setter Relationship Specialty Start Date End Date Janes Mason MD [address] [place] [address] PCP - General Family Medicine 11/13/12
--- OUTSIDE RECORDS SUMMARY | 2025-10-04 11:39 | XMS_ITS | Encounter Summary ---
Author Organization [employer] ([place], [place], [place], [place], [place]) Address [address] [place] [address] Care Team Providers Care Gem Stone Cutter Name Role Phone Unavailable Primary Care Provider Unavailabl e Encounter Details Date Type Department Care Team (Late st Contact Info) Description 07/17/2019 Transcribed Document [facility] [place] [facility] [place] [address] ProviderDarrell MD [address] [place] [address] Social History Tobacco Use Types Packs/Day Years [...] Lyrica 100 mg 3 times daily and [place] 7.5/325 mg 3 times daily. The patient [...] with alcohol, or self-escalate it. 2. Continue [place] 7.5/325 mg 3 times daily as needed. [...]
--- OUTSIDE RECORDS SUMMARY | 2025-10-04 11:39 | XMS_ITS | Encounter Summary ---
Author Organization [employer] ([place], [place], [place], [place], [place]) Address [address] [place] [address] Care Team Providers Care Bilingual Middle School Teacher Name Role Phone Unavailable Primary Care Provider Unavailabl e Encounter Details Date Type Department Care Team (Late st Contact Info) Description 10/12/2019 Transcribed Document [facility] [place] [address] ProviderDarrell MD [address] [place] [address] Social History Tobacco Use Types Packs/Day Years Used Date Smoking Tobacco: Never Assessed Comments Unknown Sex and Gender Information Value Date Recorded Sex Assigned at Not on file Legal Sex Female 6:16 PM CDT Gender Identity Not on file Sexual Orientation Not on file documented as of this encounter Miscellaneous Notes * Cerner Conversion Note - Historical ProviderMD - 10/12/2019 2:22 PM FORMING PROCESS WORKER DATE OF ADMISSION: 10/12/2019 Darshana Barr is [...] will discuss it in the next visit. /[id number] Pepe Krishna MD, BLAKE Pain Certified KR/AQ / KR / MODL CC: Janes Mason MD documented in this encounter Plan of Treatment Not on file documented as of this encounter Visit Diagnoses Not on filedocumented in this encounter
--- OUTSIDE RECORDS SUMMARY | 2025-10-04 11:39 | XMS_ITS | Referral Summary ---
Author Organization [email or web address] ([place], [place], [place], [place], [place]) Address [address] [place] [address] Care Team Providers Care Candy Forming Machine Operator Name Role Phone Unavailable Primary [...] HYDROcodone-elaine taminophen (NORCO) 5-325 mg per tablet [place] 5 mg-325 mg tablet Take 1 tablet [...] on file Insurance MEDICARE PART A B [facility]
--- OUTSIDE RECORDS SUMMARY | 2025-10-04 11:39 | XMS_ITS | Encounter Summary ---
Author Organization [employer] ([place], [place], [place], [place], [place]) Address [address] [place] [address] Care Team Providers Care Exerciser Horse Name Role Phone Unavailable Primary Care Provider Unavailabl e Encounter Details Date Type Department Care Team (Late st Contact Info) Description 01/06/2021 Transcribed Document [facility] [place] Family Medicine [address] [place] [address] ProviderDarrell MD [address] [place] [id number] Social History Tobacco Use Types Packs/Day Years Used Date Smoking Tobacco: Never Assessed Comments Unknown Sex and Gender Information Value Date Recorded Sex Assigned at Not on file Legal Sex Female 6:16 PM CDT Gender Identity Not on file Sexual Orientation Not on file documented as of this encounter Miscellaneous Notes * Cerner Conversion Note - Darrell ProviderMD - 01/06/2021 12:45 PM QA AUTOMATION ENGINEER [facility] PACU Summary Primary Physician: SEA OLSON MD Finalized Date/Time: 01/06/21 13:56:56 Pt. Name: FERMIN BARR/Sex: 1965 Female Med Rec #: [id number] Physician: SEA OLSON MD Financial #: [id number] Pt. Type: O Room/Bed: END/ Admit/Disch: 01/06/21 11:16:00 - 01/06/21 13:55:00 Institution: [facility] PACU Case Times Entry 1 In PACU I 01/06/21 13:10:00 Ready for PACU 01/06/21 13:50:00 Discharge Discharge from PACU 01/06/21 13:56:00 I Last Modified By: Nessa Islas RN 01/06/21 13:56:53 [facility] PACU Case Times Audit 01/06/21 13:56:53 Armature Bander: [id number] Modifier: [id number] <+> 1 Ready for PACU Discharge <+> 1 Discharge from PACU I Finalized By: Nessa Islas RN Document Signatures Signed By: Nessa Islas RN 01/06/21 13:56 documented in this encounter Plan of Treatment Not on file documented as of this encounter Visit Diagnoses Not on filedocumented in this encounter
--- OUTSIDE RECORDS SUMMARY | 2025-10-04 11:39 | XMS_ITS | Encounter Summary ---
Author Organization [employer] ([place], [place], [place], [place], [place]) Address [address] [place] [address] Care Team Providers Care Adult Psychiatrist Name Role Phone Unavailable Primary Care Provider Unavailabl e Encounter Details Date Type Department Care Team (Late st Contact Info) Description 01/06/2021 Transcribed Document [facility] Family Medicine [facility] [address] ProviderDarrell MD [address] [place] [phone] Social History Tobacco Use Types Packs/Day Years Used Date Smoking Tobacco: Never Assessed Comments Unknown Sex and Gender Information Value Date Recorded Sex Assigned at Not on file Legal Sex Female 6:16 PM CDT Gender Identity Not on file Sexual Orientation Not on file documented as of this encounter Miscellaneous Notes * Cerner Conversion Note - Historical ProviderMD - 01/06/2021 12:16 PM NETWORK CONTROL OPERATORS SUPERVISOR Pre Procedure Adult Entered On: 01/06/2021 12:18 EST Performed On: 01/06/2021 12:16 EST by Ligia Walter RN Height and Weight, Clinical Dosing Height Source : Stated Height Entry Format : [place] Height, Feet : 5 ft(Converted to: 152 cm, 60 Inch) Height, Inches : 4 Inch(Converted to: 0 ft 4 Inch, 10.16 cm) Clinical Height : 162.56 cm Weight Source : Standing scale Weight Entry Format : [place] Clinical Dosing Weight : 99.15 kg Weight, Pounds : 218 lb Weight, Ounces : 2 oz Body Surface Area (BSA) : 2.03 m2 Body Mass Index : 37.5 kg/m2 (HI) [place] Body Weight : 54 kg Ligia Walter [...] (Last Updated: 11/06/2016 11:34:14 EST by Tracey Mathews RN) Substance Abuse: Drug Use Hx: No. Use [...] Ligia Walter RN - 01/06/2021 12:16 EST [place] Suicide Severity Rating Scale (C-SSRS) CSSRS Past [...] Info Preferred Name : wilfred Support Person/Patient Commercial Loan Specialist : Yes Support Person/Pt Rep Name : Chrissy Barr, Marina Perez, mother Support Person/Pt Rep Contact Information : [phone] Want Family/Rep/Phys Notified of Admit : No Emergency Contact #1 : chrissy Emergency Contact #1 Emergency Contact #1 Relationship : spouse Emergency Contact #2 : Emergency Contact #2 Phone Number : Emergency Contact #2 Relationship : Primary Language : Panamanian Preferred Communication Mode : Verbal Communication Barrier : None Materials Planning Manager Needed : No Ligia Walter RN - [...] Scale Risk Level : 0-24 Low Risk Marana Fall Interventions : Adequate lighting, Non-slip footwear, Wheels locked Ligia Walter RN - 01/06/2021 12:16 EST Valuables and Belongings Valuables and Belongings : Clothing, Personal items Clothing : Common streetwear Clothing Disposition : Bedside Personal Items : Cell phone, Purse Personal Items Disposition : Bedside Ligia Walter RN - 01/06/2021 12:16 EST Electronically signed by [employer] [facility] Conversion Welder Shielded Metal Arc Cerner at 02/18/2023 4:52 PM CDT documented in this encounter Plan of Treatment Not on file documented as of this encounter Visit Diagnoses Not on filedocumented in this encounter
== END 2025-10-04 23:59 | disposition home or self-care (01) ==
LOC: INF 10:50
PROVIDERS: PCP Family Medicine; Visit Provider Internal Medicine Pulmonary Disease
DX: J82.83 Eosinophilic asthma (principal)
CPT/HCPCS: 96372; J0517

== ENCOUNTER 2025-10-26 10:29 | Emergency (ER) | payer MEDICARE, BC, SELFPAY ==
--- OUTSIDE RECORDS SUMMARY | 2021-10-13 09:53 | XMS_ITS | Encounter Summary ---
[facility] Address [address] [place] [address] Care Team Providers Care Explosion Welder Name Role Phone Janes Mason MD Primary Care Provider [phone] Reason for Visit * Diagnostic Imaging (Routine) - Closed Specialty Diagnoses / Procedures Referred By Contac t Referred To Contact Radiology Diagnoses Nontoxic multinodular goiter Procedures US Thyroid Raeann Carlson MD [address] [place] [address] Phone: tel: fax: [facility] [address] [place] [phone] Phone: tel: fax: Referral ID Status Reason Start Date Expiration Date Visits Re quested Visits Authorized [id number] Closed 10/13/2021 10/13/2022 1 1 Encounter Details Date Type Department Care Team (Late st Contact Info) Description 10/13/2021 9:53 AM EST Hospital Encounter [facility] [address] [place] [phone] Social History Tobacco Use Types Packs/Day Years Used Date Smoking Tobacco: Never Smokeless Tobacco: Never Alcohol Use Standard Drinks/Week Comments Never 0 (1 standard drink = 0.6 oz pur e alcohol) Abuse Screen Answer Date Recorded Unsafe at Home or Work/School Not on file Feels Threatened by Someone? Not on file Does Anyone Keep You from Co ntacting Others or Doint Things Outside the Home? Not on file 08/16/2023 Physical Sign of Abuse Present Not on file 1 Housing Stability Answer Date Recorded Current Living Arrangements Not on file 08/04 Potentially Unsafe Housing Conditions Not on abida e 08/16/2023 Family and Community Support Answer Avel e Recorded Help with Day-to-Day Activities Not on file 08/16/2023 Lonely or Isolated Not on file 08/16/2023 Employment Answer Date Recorded Do you want help finding or keeping work or a chino b? Not on file 08/16/2023 Disabilities Answer Date Recorded Concentrating, Remembering, or Making Decisions Difficulty Not on file 08/16/2023 Doing Errands Independently Difficulty Not on fi le 08/16/2023 Education Answer Date Recorded Help with school or training? Not on file Preferred Language Not on file 08/16/2023 Comments Unknown Sex and Gender Information Value Date Recorded Sex Assigned at Not on file Legal Sex Female 3:56 PM EDT Gender Identity Not on file Sexual Orientation Not on file documented as of this encounter Plan of Treatment Not on file documented as of this encounter Procedures Procedure Name Priority Date/Time Associated Diagnosis Comments US THYROID Routine 10/13/2021 9:53 AM EST Nontoxic multinodular goiter documented in this encounter Results * US Thyroid (10/13/2021 9:53 AM EST) Narrative SYSTEMGENERATED, DOCUMENTATION - 10/13/2021 9:53 AM EST Please see performing physician's note for result. us Raeann Story MD IMG US ORDERABLES Final Result documented in this encounter Visit Diagnoses Not on filedocumented in this encounter Care Teams Explosion Welder Relationship Specialty Start Date End Date Janes Mason MD [address] [place] [address] PCP - General Family Medicine 07/11/21 documented as of this encounter
[2025-10-26 10:34] VITALS: BP 142/89; PULSE 114; O2SAT 93
[2025-10-26 10:36] VITALS: BP 142/89; PULSE 102; RESP 20; TEMP 37; O2SAT 97; BMI 32.5
--- OUTSIDE RECORDS SUMMARY | 2025-10-26 10:41 | XMS_ITS | Encounter Summary ---
Author Organization [employer] ([place], [place], [place], [place], [place]) Address [address] [place] [address] Care Team Providers Care Guide Visitor Name Role Phone Unavailable Primary Care Provider Unavailabl e Encounter Details Date Type Department Care Team (Late st Contact Info) Description 10/17/2020 Transcribed Document [facility] [place] [facility] [place] [address] ProviderDarrell MD [address] [place], [place] [phone] Social History Tobacco Use Types Packs/Day Years Used Date Smoking Tobacco: Never Assessed Comments Unknown Sex and Gender Information Value Date Recorded Sex Assigned at Not on file Legal Sex Female 6:16 PM CDT Gender Identity Not on file Sexual Orientation Not on file documented as of this encounter Miscellaneous Notes * Cerner Conversion Note - Historical ProviderMD - 10/17/2020 8:38 PM SURGICAL TECHNOLOGIST ED Event Note Entered On: 10/17/2020 20:40 [...]
--- OUTSIDE RECORDS SUMMARY | 2025-10-26 10:41 | XMS_ITS | Encounter Summary ---
Author Organization [employer] ([place], [place], [place], [place], [place]) Address [address] [place] [address] Care Team Providers Care Machine Egg Washer Name Role Phone Unavailable Primary Care Provider Unavailabl e Encounter Details Date Type Department Care Team (Late st Contact Info) Description 10/17/2020 Transcribed Document [facility] [place] [facility] [place] [address] ProviderDarrell MD [address] [place] [address] Social History Tobacco Use Types Packs/Day Years Used Date Smoking Tobacco: Never Assessed Comments Unknown Sex and Gender Information Value Date Recorded Sex Assigned at Not on file Legal Sex Female 6:16 PM CDT Gender Identity Not on file Sexual Orientation Not on file documented as of this encounter Miscellaneous Notes * Cerner Conversion Note - Historical ProviderMD - 10/17/2020 10:58 PM NECK BAND OPERATOR Electronically signed by [employer] [facility] Conversion Removable Prosthodontist Cerner at 02/18/2023 4:55 PM CDT documented in this encounter Plan of Treatment Not on file documented as of this encounter Visit Diagnoses Not on filedocumented in this encounter
--- OUTSIDE RECORDS SUMMARY | 2025-10-26 10:41 | XMS_ITS | Encounter Summary ---
Author Organization [email or web address] ([place], [place], [place], [place], [place]) Address [address] [place] [address] Care Team Providers Care Hospital Account Liaison Name Role Phone Unavailable Primary Care Provider Unavailabl e Encounter Details Date Type Department Care Team (Late st Contact Info) Description 10/17/2020 Transcribed Document [facility] [place] [facility] [place] [address] ProviderDarrell MD [address] [place], [place] [phone] Social History Tobacco Use Types Packs/Day Years Used Date Smoking Tobacco: Never Assessed Comments Unknown Sex and Gender Information Value Date Recorded Sex Assigned at Not on file Legal Sex Female 6:16 PM CDT Gender Identity Not on file Sexual Orientation Not on file documented as of this encounter Miscellaneous Notes * Cerner Conversion Note - Historical ProviderMD - 10/17/2020 11:15 PM BARREL STAVE INSPECTOR ED Discharge Vital Signs Entered On: 10/17/2020 23:15 EST Performed On: 10/17/2020 23:15 EST by Jeannette Fuller RN ED Discharge Vital Signs Peripheral Pulse Rate : 82 bpm Respiratory Rate : 20 Breaths/Min Systolic Blood Pressure : 121 mmHg Diastolic Blood Pressure : 67 mmHg Oxygen Saturation : 98 % Jeannette Fuller RN - 10/17/2020 23:15 EST Electronically signed by [employer] [facility] Conversion Swage Toolsetter Cerner at 02/18/2023 4:50 PM CDT documented in this encounter Plan of Treatment Not on file documented as of this encounter Visit Diagnoses Not on filedocumented in this encounter
--- OUTSIDE RECORDS SUMMARY | 2025-10-26 10:41 | XMS_ITS | Encounter Summary ---
Author Organization [employer] ([place], [place], [place], [place], [place]) Address [address] [place] [address] Care Team Providers Care Metal Buildings Assembler Name Role Phone Unavailable Primary Care Provider Unavailabl e Encounter Details Date Type Department Care Team (Late st Contact Info) Description 08/04/2020 Transcribed Document [facility] [place] Family Medicine [address] [place] [address] ProviderDarrell MD [address] [place] [address] Social History Tobacco Use Types Packs/Day Years [...] visit and the patient has been afebrile. /[id number] Pepe Krishna MD, BLAKE Pain Certified KR/MIRIAN / EN / MODL CC: Dr. Janes Mason Electronically signed by [facility], [facility] Conversion Passport Application Examiner Cerner at 02/18/2023 4:48 PM CDT documented in this encounter Plan of Treatment Not on file documented as of this encounter Visit Diagnoses Not on filedocumented in this encounter
--- OUTSIDE RECORDS SUMMARY | 2025-10-26 10:41 | XMS_ITS | Encounter Summary ---
Author Organization [employer] ([place], [place], [place], [place], [place]) Address [address] [place] [address] Care Team Providers Care Income Tax Analyst Name Role Phone Unavailable Primary Care Provider Unavailabl e Encounter Details Date Type Department Care Team (Late st Contact Info) Description 10/17/2020 Transcribed Document [facility] [place] [facility] [place] [address] ProviderDarrell MD [address] [place] [address] Social History Tobacco Use Types Packs/Day Years Used Date Smoking Tobacco: Never Assessed Comments Unknown Sex and Gender Information Value Date Recorded Sex Assigned at Not on file Legal Sex Female 6:16 PM CDT Gender Identity Not on file Sexual Orientation Not on file documented as of this encounter Miscellaneous Notes * [employer]ner Conversion Note - Historical ProviderMD - 10/17/2020 4:38 PM DEPARTMENT CHAIRPERSON ED Assessment Entered On: 10/17/2020 22:43 EST [...] Communication Barrier : None Primary Language : Prydeinig Any Spiritual/Cultural Needs or Requests : No [...] Rhythm : Regular Nail Bed Color : [place] Chest Pain : Yes Neck Vein Distention [...] 10/17/2020 22:40 EST Electronically signed by [employer], [facility] Conversion Software Technician Cerner at 02/18/2023 5:10 PM CDT documented in this encounter Plan of Treatment Not on file documented as of this encounter Visit Diagnoses Not on filedocumented in this encounter
--- OUTSIDE RECORDS SUMMARY | 2025-10-26 10:41 | XMS_ITS | Encounter Summary ---
Author Organization [employer] ([place], [place], [place], [place], [place]) Address [address] [place] [address] Care Team Providers Care Toy Stuffer Name Role Phone Unavailable Primary Care Provider Unavailabl e Encounter Details Date Type Department Care Team (Late st Contact Info) Description 10/04/2020 Transcribed Document [facility] [place] Family Medicine [facility] [place] [address] ProviderDarrell MD [address] [place] [address] Social History Tobacco Use Types Packs/Day Years Used Date Smoking Tobacco: Never Assessed Comments Unknown Sex and Gender Information Value Date Recorded Sex Assigned at Not on file Legal Sex Female 6:16 PM CDT Gender Identity Not on file Sexual Orientation Not on file documented as of this encounter Miscellaneous Notes * [employer]ner Conversion Note - Historical ProviderMD - 10/04/2020 4:06 PM INSPECTOR ASSEMBLY DATE OF ADMISSION: 10/04/2020 HISTORY OF PRESENT [...] is also using Cymbalta and taking her Alma 3 times daily. She says that she is also using Robaxin as needed and taking her Lyrica 3 times daily. The patient says that she really needs to have the Alma dosage 4 times daily. She says that [...] not to take the Lyrica and the Alma at the same time but alternate those. [...] visit and the patient has been afebrile. /[id number] FLOYD Mullins/MIRIAN / PITA / MODL CC: REYES (REF) MD AUDIE Electronically signed by [employer], [facility] Conversion Sand Shoveler Cerner at 02/18/2023 4:59 PM CDT documented in this encounter Plan of Treatment Not on file documented as of this encounter Visit Diagnoses Not on filedocumented in this encounter
--- OUTSIDE RECORDS SUMMARY | 2025-10-26 10:41 | XMS_ITS | Encounter Summary ---
Author Organization [employer] ([place], [place], [place], [place], [place]) Address [address] [place] [address] Care Team Providers Care Plant Maintenance Supervisor Name Role Phone Unavailable Primary Care Provider Unavailabl e Encounter Details Date Type Department Care Team (Late st Contact Info) Description 10/17/2020 Transcribed Document [facility] [place] Family Medicine [address] [place] [address] ProviderDarrell MD [address] [place] [address] Social History Tobacco Use Types Packs/Day Years Used Date Smoking Tobacco: Never Assessed Comments Unknown Sex and Gender Information Value Date Recorded Sex Assigned at Not on file Legal Sex Female 6:16 PM CDT Gender Identity Not on file Sexual Orientation Not on file documented as of this encounter Miscellaneous Notes * [employer]ner Conversion Note - Historical ProviderMD - 10/17/2020 4:38 PM LADIES SUIT OPERATOR [place] Suicide Severity Rating Scale (C-SSRS) Entered On: 10/17/2020 22:43 EST Performed On: 10/17/2020 22:40 EST by Jeannette Fuller RN [place] Suicide Severity Rating Scale (C-SSRS) CSSRS Past [...]
--- OUTSIDE RECORDS SUMMARY | 2025-10-26 10:41 | XMS_ITS | Encounter Summary ---
Author Organization [employer] ([place], [place], [place], [place], [place]) Address [address] [place] [address] Care Team Providers Care Sanitation Technician Name Role Phone Unavailable Primary Care Provider Unavailabl e Encounter Details Date Type Department Care Team (Late st Contact Info) Description 10/17/2020 Transcribed Document [facility] [place] [facility] [place] [address] ProviderDarrell MD [address] [place] [address] Social History Tobacco Use Types Packs/Day Years Used Date Smoking Tobacco: Never Assessed Comments Unknown Sex and Gender Information Value Date Recorded Sex Assigned at Not on file Legal Sex Female 6:16 PM CDT Gender Identity Not on file Sexual Orientation Not on file documented as of this encounter Miscellaneous Notes * [employer]ner Conversion Note - Historical ProviderMD - 10/17/2020 10:52 PM INVENTORY ADMINISTRATOR Patient: FERMIN BARR Age: 55 years Sex: Female : 1965 Associated Diagnoses: Elevated WBCs; PNA (pneumonia) Author: HAYLEE YOUNGBLOOD PA-C Basic Information Additional information: Chief Complaint from Nursing Triage Note : Chief Complaint 10/17/2020 17:31 EST Chief Complaint Hospitalized at [facility] last week c sepsis/PNA. Saw Maximiliano Alicia [...] Patient says that after being discharged from [facility] last week due to sepsis and [...] to see if she could come to [place] to have her blood work done in [...] 30 Tab, 2 Refill(s) Documented Medications Documented [place] 7.5 mg-325 mg oral tablet: 1 Tab, [...] EST Height Source Stated Height Entry Format [place] Height/Length, MARSHALLESE (ft) 5 ft Height/Length MARSHALLESE 4 Inch CLINICALHEIGHT 162.56 cm [place] Body Weight 54.3 kg Weight Source, ED Critical estimated dosing weight Weight Entry Format [place] Weight Sinhala lb 250 lb CLINICALWEIGHT 113.64 kg Body [...] Triage: ED C-SSRS: ED Clinical Reconciliation: ED micro photographer: EKG: Lactic Acid Level with Reflex if [...] 11.7 % LOW Lymph # 2.28 x10(3)/uL [place] % 4.3 % [place] # 0.83 K/uL [place] % 0.1 % [...]
--- OUTSIDE RECORDS SUMMARY | 2025-10-26 10:41 | XMS_ITS ---
Laboratory report Created on: October 05, 2025 FERMIN DEVRIES : 1965 Sex: Female Author Organization Unknown PROBLEMS Problems List Code Description RESULTS Laboratory Orders Date Order Code Test 2025-06-29 120501 COMPLIANCE DRUG ANALYSIS, UR Laboratory Results Date LOINC Test Value Unit Reference Range Interpretation 2161-8 CREATININE 144 MG/DL 27916-1 SUMMARY REPORT (SUMMARY) FINAL 99872-7 PDF IMAGE 41729-5 ALCOHOL, ETHYL N 27347-3 ALCOHOL, ETHYL NOTDET G/DL 41042-4 AMPHETAMINES N 99192-3 METHAMPHETAMINE NOTDET NG/MG CREAT 28791-0 AMPHETAMINE NOTDET NG/MG CREAT 38367-2 MDMA (ECSTASY) NOTDET NG/MG CREAT 77170-4 MDA (ECSTASY METABOLITE) NOTDET NG/MG CREAT 38315-1 BENZODIAZEPINES MX++PO 18275-4 DIAZEPAM NOTDET NG/MG CREAT 16614-0 DESMETHYLDIAZEPAM NOTDET NG/MG CREAT 94039-5 OXAZEPAM NOTDET NG/MG CREAT 53236-3 TEMAZEPAM NOTDET NG/MG CREAT 71794-4 ALPRAZOLAM 22 NG/MG CREAT 46361-4 ALPHA-HYDROXYALPRAZOLAM 34 NG/MG CREAT 86458-7 DESALKYLFLURAZEPAM NOTDET NG/MG CREAT 69790-5 LORAZEPAM NOTDET NG/MG CREAT 67808-7 ALPHA-HYDROXYTRIAZOLAM NOTDET NG/MG CREAT 92524-5 CLONAZEPAM NOTDET NG/MG CREAT 33472-8 7-AMINOCLONAZEPAM NOTDET NG/MG CREAT 61497-1 MIDAZOLAM NOTDET NG/MG CREAT 81278-3 ALPHA-HYDROXYMIDAZOLAM NOTDET NG/MG CREAT 69343-1 FLUNITRAZEPAM NOTDET NG/MG CREAT 93833-8 DESMETHYLFLUNITRAZEPAM NOTDET NG/MG CREAT 88076-6 COCAINE + METABOLITE N 12658-6 COCAINE NOTDET NG/MG CREAT 13846-6 BENZOYLECGONINE NOTDET NG/MG CREAT 71535-6 COCAETHYLENE NOTDET NG/MG CREAT 20076-1 6-ACETYLMORPHINE N 08793-4 6-ACETYLMORPHINE NOTDET NG/MG CREAT 22465-4 OPIATE CLASS MX++PO 66366-5 CODEINE NOTDET NG/MG CREAT 04025-8 MORPHINE NOTDET NG/MG CREAT 10171-9 NORMORPHINE NOTDET NG/MG CREAT 45778-9 NORCODEINE NOTDET NG/MG CREAT 30135-7 HYDROCODONE 1696 NG/MG CREAT 51503-4 HYDROMORPHONE 373 NG/MG CREAT 54804-8 DIHYDROCODEINE 493 NG/MG CREAT 15103-4 NORHYDROCODONE 1188 NG/MG CREAT 68880-1 OXYCODONE CLASS N 49359-4 OXYCODONE NOTDET NG/MG CREAT 60108-0 OXYMORPHONE NOTDET NG/MG CREAT 35445-1 NOROXYCODONE NOTDET NG/MG CREAT 08755-4 NOROXYMORPHONE NOTDET NG/MG CREAT 89709-0 FENTANYL & ANALOGUES N 88500-3 FENTANYL NOTDET NG/MG CREAT 84089-2 NORFENTANYL NOTDET NG/MG CREAT 43750-7 SUFENTANIL NOTDET NG/MG CREAT 02590-8 ALFENTANIL NOTDET NG/MG CREAT 03276-1 BUPRENORPHINE N 62633-7 BUPRENORPHINE NOTDET NG/MG CREAT 23978-4 NORBUPRENORPHINE NOTDET NG/MG CREAT 58276-6 METHADONE N 94884-8 METHADONE NOTDET NG/MG CREAT 72083-4 EDDP (METHADONE MTB) NOTDET NG/MG CREAT 81267-1 TAPENTADOL N 05472-0 TAPENTADOL NOTDET NG/MG CREAT 89504-3 OTHER OPIOIDS N 89555-0 NALTREXONE NOTDET 14150-6 NALBUPHINE NOTDET 74988-8 BUTORPHANOL NOTDET 54594-1 MEPERIDINE NOTDET 05656-2 NORMEPERIDINE NOTDET 70783-2 PENTAZOCINE NOTDET 27466-1 PROPOXYPHENE NOTDET 29487-2 NORPROPOXYPHENE NOTDET 57449-8 TRAMADOL NOTDET NG/MG CREAT 83518-2 O-DESMETHYLTRAMADOL NOTDET NG/MG CREAT 97138-8 N-DESMETHYLTRAMADOL NOTDET NG/MG CREAT 41631-1 CANNABINOIDS N 02482-9 CARBOXY-THC NOTDET NG/MG CREAT PENDING OTHER HALLUCINOGENS N 21918-5 KETAMINE NOTDET 42555-5 NORKETAMINE NOTDET 95423-4 PHENCYCLIDINE NOTDET 12448-7 BARBITURATES N 66649-2 AMOBARBITAL NOTDET 00181-6 BARBITAL NOTDET 58362-7 BUTABARBITAL NOTDET 45993-5 BUTALBITAL NOTDET 95041-3 MEPHOBARBITAL NOTDET 03155-5 PENTOBARBITAL NOTDET 79656-5 PHENOBARBITAL NOTDET 14585-4 SECOBARBITAL NOTDET 20621-6 THIOPENTAL NOTDET 85228-7 SYMPATHOMIMETICS N 71049-7 MDEA NOTDET 3596-4 EPHEDRINE/PSEUDOEPHEDRINE NOTDET 32957-7 ATOMOXETINE NOTDET 79682-9 DIETHYLPROPION NOTDET 87002-9 METHYLPHENIDATE NOTDET 00033-1 RITALINIC ACID NOTDET 65428-4 PHENMETRAZINE NOTDET 61578-0 PHENTERMINE NOTDET 3965-1 PHENYLPROPANOLAMINE NOTDET 44531-4 METHCATHINONE NOTDET PENDING ANTICONVULSANTS N 13776-3 CARBAMAZEPINE NOTDET 74358-6 CLOBAZAM NOTDET PENDING EZOGABINE NOTDET 41498-7 GABAPENTIN NOTDET 83487-4 PREGABALIN NOTDET 97302-9 LEVETIRACETAM NOTDET 66011-4 OXCARBAZEPINE MHD NOTDET 28536-4 PHENYTOIN NOTDET 24283-5 PRIMIDONE NOTDET 21572-3 RUFINAMIDE NOTDET 98890-8 TIAGABINE NOTDET 86341-7 TOPIRAMATE NOTDET 11145-6 ZONISAMIDE NOTDET 64624-1 LAMOTRIGINE NOTDET PENDING MUSCLE RELAXANTS MX++PO 44324-0 BACLOFEN NOTDET 63376-9 CARISOPRODOL NOTDET 37696-8 MEPROBAMATE NOTDET 28351-2 CYCLOBENZAPRINE NOTDET 57209-7 DESMETHYLCYCLOBENZAPRINE NOTDET 91485-2 TIZANIDINE NOTDET PENDING METAXALONE NOTDET 3791-1 METHOCARBAMOL MXPRES 13837-7 ORPHENADRINE NOTDET 16799-2 SEDATIVE/HYPNOTICS N 96200-0 ZOLPIDEM NOTDET 30735-0 ZOLPIDEM ACID NOTDET 64806-5 ZOPICLONE/ESZOPICLONE NOTDET AMINO CHLOROPYRIDINE NOTDET PENDING ZALEPLON NOTDET 88556-0 ANTIDEPRESSANTS MX++PO 46977-0 AMITRIPTYLINE NOTDET 3342-3 AMOXAPINE NOTDET 43837-5 8-HYDROXYAMOXAPINE NOTDET 33461-0 BUPROPION NOTDET 49279-9 HYDROXYBUPROPION NOTDET 47100-8 CITALOPRAM NOTDET 87129-9 DESMETHYLCITALOPRAM NOTDET 02294-5 CLOMIPRAMINE NOTDET DESMETHYLCLOMIPRAMINE NOTDET 73973-3 DESIPRAMINE NOTDET 57382-1 DOXEPIN NOTDET 83797-9 DESMETHYLDOXEPIN NOTDET 14194-3 DULOXETINE NOTDET 64250-4 FLUOXETINE MXPRES 98673-9 NORFLUOXETINE MXPRES 91748-6 FLUVOXAMINE NOTDET 70770-8 IMIPRAMINE NOTDET 07473-0 MIRTAZAPINE NOTDET 55532-5 NORTRIPTYLINE NOTDET 96529-8 PAROXETINE NOTDET 4001-4 PROTRIPTYLINE NOTDET 91145-8 SERTRALINE NOTDET 24397-5 DESMETHYLSERTRALINE NOTDET 3737-4 MAPROTILINE NOTDET 69878-6 NEFAZODONE NOTDET 4065-9 TRAZODONE NOTDET 15016-1 1,3 CHLOROPHENYL PIPERAZINE NOTDET 4084-0 TRIMIPRAMINE NOTDET 30976-1 VENLAFAXINE NOTDET 59567-5 DESMETHYLVENLAFAXINE NOTDET 94502-8 VILAZODONE NOTDET PENDING ANTIPSYCHOTICS N 16354-5 CHLORPROMAZINE NOTDET 00741-4 CLOZAPINE NOTDET 64872-2 DESMETHYLCLOZAPINE NOTDET 3729-1 LOXAPINE NOTDET PENDING 8-HYDROXYLOXAPINE NOTDET 41739-9 MESORIDAZINE NOTDET 81264-7 OLANZAPINE NOTDET 67412-1 QUETIAPINE NOTDET 09973-9 RISPERIDONE NOTDET 68674-2 FLUPHENAZINE NOTDET 36931-1 HALOPERIDOL NOTDET 12749-1 THIORIDAZINE NOTDET PENDING MOLINDONE NOTDET PENDING PIMOZIDE NOTDET 16221-6 THIOTHIXENE NOTDET 3510-5 PROCHLORPERAZINE NOTDET 11443-4 TRIFLUOPERAZINE NOTDET PENDING ZIPRASIDONE NOTDET 53503-6 PERPHENAZINE NOTDET PENDING ARIPIPRAZOLE NOTDET ASENAPINE NOTDET ILOPERIDONE NOTDET 28835-3 LURASIDONE NOTDET 59155-9 ANALGESICS/NSAIDS MX++PO 3299-5 ACETAMINOPHEN MXPRES PENDING DICLOFENAC NOTDET 79796-8 IBUPROFEN NOTDET PENDING KETOPROFEN NOTDET PENDING NAPROXEN NOTDET PENDING OXAPROZIN NOTDET 4025-3 SALICYLATE NOTDET 30558-1 ANTIHISTAMINES N 3408-2 BROMPHENIRAMINE NOTDET 39164-6 CHLORPHENIRAMINE NOTDET 3571-7 DIPHENHYDRAMINE NOTDET 3586-5 DOXYLAMINE NOTDET 91120-3 HYDROXYZINE NOTDET 92910-3 PROMETHAZINE NOTDET 4009-7 PYRILAMINE NOTDET PENDING TRIPROLIDINE NOTDET PENDING LOCAL ANESTHETICS N PENDING BUPIVACAINE NOTDET 3716-8 LIDOCAINE NOTDET 36996-0 MEPIVACAINE NOTDET 59144-3 PROCAINE NOTDET 20844-5 MISCELLANEOUS N 29634-0 BENZTROPINE NOTDET 3423-1 CAFFEINE NOTDET 20324-2 CLONIDINE NOTDET 3539-4 DEXTROMETHORPHAN NOTDET 33555-5 DEXTRORPHAN/LEVORPHANOL NOTDET PENDING GUAIFENESIN NOTDET 3816-6 METOPROLOL NOTDET PENDING MILNACIPRAN NOTDET 15988-3 DILTIAZEM NOTDET 3993-3 PROPRANOLOL NOTDET 3360-5 ATENOLOL NOTDET 98900-7 THEOPHYLLINE NOTDET 4095-6 VERAPAMIL NOTDET
--- OUTSIDE RECORDS SUMMARY | 2025-10-26 10:41 | XMS_ITS | Encounter Summary ---
Author Organization [employer] ([place], [place], [place], [place], [place]) Address [address] [place] [address] Care Team Providers Care Typing Element Machine Operator Name Role Phone Unavailable Primary Care Provider Unavailabl e Encounter Details Date Type Department Care Team (Late st Contact Info) Description 11/24/2018 Transcribed Document [facility] [place] [facility] [place] [address] ProviderDarrell MD [address] [place] [address] Social History Tobacco Use Types Packs/Day Years Used Date Smoking Tobacco: Never Assessed Comments Unknown Sex and Gender Information Value Date Recorded Sex Assigned at Not on file Legal Sex Female 6:16 PM CDT Gender Identity Not on file Sexual Orientation Not on file documented as of this encounter Miscellaneous Notes * [employer] Conversion Note - Historical ProviderMD - 11/24/2018 3:56 PM DIRECTOR DIETETICS DEPARTMENT DATE OF ADMISSION: 11/24/2018 HISTORY OF PRESENT [...] it. The patient does continue to take Lipscomb 7.5/325 mg 2-3 times a day as [...] radiculopathy. 4. Cervical spondylosis. PLAN: 1. Refill Lipscomb 7.5/325 mg 2-3 times a day as [...] Dr. Janes Mason Electronically signed by [employer] [facility] Conversion Cistern Room Working Supervisor Cerner at 02/18/2023 4:59 PM CDT documented in this encounter Plan of Treatment Not on file documented as of this encounter Visit Diagnoses Not on filedocumented in this encounter
--- OUTSIDE RECORDS SUMMARY | 2025-10-26 10:41 | XMS_ITS ---
Laboratory report Created on: October 02, 2025 FERMIN DEVRIES : 1965 Sex: Female Author Name [facility] Unknown PROBLEMS Problems List Code Description RESULTS Laboratory Orders Date Order Code Test 2025-09-23 443201 TETANUS/DIPHTHER IA AB 2025-09-23 481350 ISOHEMAGGLUTININ TITER 2025-09-23 560944 PNEUMOCOCCAL AB (23 SEROTYPE) 2025-09-23 302732 COMPLEMENT, TOTA L (CH50) 2025-09-23 718397 IMMUNOGLOBULINS A/G/M, QN, SER Laboratory Results Date LOINC Test Value Unit Reference Range Interpre tation 2025-09-23 83871-9 TETANUS ANTITOXO ID IGG AB 1.31 IU/ML <0.10 2025-09-23 5116-9 DIPHTHERIA ANTIT OXOID AB .67 IU/ML <0.10 2025-09-23 88782-1 ANTIBODY SCREEN N 2025-09-23 883-9 BLOOD GROUPING A 2025-09-23 40749-1 A TITER NI 2025-09-23 48822-6 B TITER 1:16 2025-09-23 96181-3 PNEUMO AB TYPE 1* .2 UG/ML >1.3 L 2025-09-23 72519-8 PNEUMO AB TYPE 3* >6.1 UG/ML >1.3 2025-09-23 86608-9 PNEUMO AB TYPE 4* .2 UG/ML >1.3 L 2025-09-23 33630-9 PNEUMO AB TYPE 8* <0.3 UG/ML >1.3 L 2025-09-23 64499-2 PNEUMO AB TYPE 9 (9N)* .3 UG/ML >1.3 L 2025-09-23 14107-0 PNEUMO AB TYPE 1 2 (12F)* .5 UG/ML >1.3 L 2025-09-23 03891-1 PNEUMO AB TYPE 14* .1 UG/ML >1.3 L 2025-09-23 19239-6 PNEUMO AB TYPE 1 7 (17F)* <0.1 UG/ML >1.3 L 2025-09-23 97402-8 PNEUMO AB TYPE 1 9 (19F)* .6 UG/ML >1.3 L 2025-09-23 00842-7 PNEUMO AB TYPE 2* <0.2 UG/ML >1.3 L 2025-09-23 97609-0 PNEUMO AB TYPE 20* 1 UG/ML >1.3 L 2025-09-23 53979-7 PNEUMO AB TYPE 2 2 (22F)* .7 UG/ML >1.3 L 2025-09-23 23421-5 PNEUMO AB TYPE 2 3 (23F)* <0.1 UG/ML >1.3 L 2025-09-23 53009-8 PNEUMO AB TYPE 26 (6B)* 2.3 UG/ML >1.3 2025-09-23 07930-4 PNEUMO AB TYPE 3 4 (10A)* <0.1 UG/ML >1.3 L 2025-09-23 23739-3 PNEUMO AB TYPE 4 3 (11A)* 1 UG/ML >1.3 L 2025-09-23 72581-0 PNEUMO AB TYPE 5* .1 UG/ML >1.3 L 2025-09-23 09978-8 PNEUMO AB TYPE 51 (7F)* .7 UG/ML >1.3 L 2025-09-23 44321-5 PNEUMO AB TYPE 5 4 (15B)* <0.2 UG/ML >1.3 L 2025-09-23 33803-0 PNEUMO AB TYPE 5 6 (18C)* .6 UG/ML >1.3 L 2025-09-23 79221-3 PNEUMO AB TYPE 5 7 (19A)* 2.3 UG/ML >1.3 2025-09-23 99024-4 PNEUMO AB TYPE 68 (9V)* 2.6 UG/ML >1.3 2025-09-23 71880-4 PNEUMO AB TYPE 7 0 (33F)* 2 UG/ML >1.3 2025-09-23 4532-8 COMPLEMENT, TOTA L (CH50) >60 U/ML >41 2025-09-23 2465-3 IMMUNOGLOBULIN G , QN, SERUM 1089 MG/DL 586-1602 2025-09-23 2458-8 IMMUNOGLOBULIN A , QN, SERUM 404 MG/DL 87-352 H 2025-09-23 2472-9 IMMUNOGLOBULIN M , QN, SERUM 89 MG/DL 26-217
--- OUTSIDE RECORDS SUMMARY | 2025-10-26 10:41 | XMS_ITS | Encounter Summary ---
Author Organization [facility] ([place], [place], [place], [place], [place]) Address [address] [place] [address] Care Team Providers Care Tile Inspector Name Role Phone Unavailable Primary Care Provider Unavailabl e Encounter Details Date Type Department Care Team (Late st Contact Info) Description 10/17/2020 Transcribed Document [facility] [place] Family Medicine [facility] [place] [address] ProviderDarrell MD [address] [place] [address] [id number] Social History Tobacco Use Types Packs/Day Years Used Date Smoking Tobacco: Never Assessed Comments Unknown Sex and Gender Information Value Date Recorded Sex Assigned at Not on file Legal Sex Female 6:16 PM CDT Gender Identity Not on file Sexual Orientation Not on file documented as of this encounter Miscellaneous Notes * [employer] Conversion Note - Historical ProviderMD - 10/17/2020 8:05 PM MANAGER CREDIT COLLECTIONS Patient: FERMIN BARR Age: 55 Years Sex: [...]
--- OUTSIDE RECORDS SUMMARY | 2025-10-26 10:41 | XMS_ITS | Encounter Summary ---
Author Organization [employer] ([place], [place], [place], [place], [place]) Address [address] [place] [address] Care Team Providers Care Manager Data Name Role Phone Unavailable Primary Care Provider Unavailabl e Encounter Details Date Type Department Care Team (Late st Contact Info) Description 04/11/2020 Transcribed Document [facility] [place] [address] [place] [address] ProviderDarrell MD [address] [place] [address] Social History Tobacco Use Types Packs/Day Years [...] she is still trying to decrease her Linwood usage, however, she had to go back [...] have some constipation, but she uses something rsmf-biz-xsnbyum that does help with that. The patient is also taking diclofenac as well as Robaxin and Lyrica in addition to the Linwood and denies any adverse effects from any [...] 100 mg 3 times daily. 6. Continue Linwood 7.5/325 mg 3 times daily as needed. [...] medications for this patient's treatment plan today. /[id number] FLOYD Mullins/MIRIAN / PITA / MODL CC: Janes Mason MD Electronically signed by [employer], [facility] Conversion Director Of Psychiatry Cerner at 02/18/2023 5:04 PM CDT documented in this encounter Plan of Treatment Not on file documented as of this encounter Visit Diagnoses Not on filedocumented in this encounter
--- OUTSIDE RECORDS SUMMARY | 2025-10-26 10:41 | XMS_ITS | Encounter Summary ---
Author Organization [employer] ([place], [place], [place], [place], [place]) Address [address] [place] [address] Care Team Providers Care Boxer Operator Name Role Phone Unavailable Primary Care Provider Unavailabl e Encounter Details Date Type Department Care Team (Late st Contact Info) Description 10/17/2020 Transcribed Document [facility] [place] [facility] [place] [address] ProviderDarrell MD [address] [place] [address] Social History Tobacco Use Types Packs/Day Years Used Date Smoking Tobacco: Never Assessed Comments Unknown Sex and Gender Information Value Date Recorded Sex Assigned at Not on file Legal Sex Female 6:16 PM CDT Gender Identity Not on file Sexual Orientation Not on file documented as of this encounter Miscellaneous Notes * [employer] Conversion Note - Historical ProviderMD - 10/17/2020 8:29 PM GRAND JURY DEPUTY SHERIFF Vital Signs ED Entered On: 10/17/2020 20:29 [...] 10/17/2020 20:29 EST Electronically signed by [employer] [facility] Conversion Telephone Diaphragm Assembler Cerner at 02/18/2023 4:53 PM CDT documented in this encounter Plan of Treatment Not on file documented as of this encounter Visit Diagnoses Not on filedocumented in this encounter
--- OUTSIDE RECORDS SUMMARY | 2025-10-26 10:41 | XMS_ITS | Encounter Summary ---
Author Organization [email or web address] ([place], [place], [place], [place], [place]) Address [address] [place] [address] Care Team Providers Care Cut Off Tender Glass Name Role Phone Unavailable Primary Care Provider Unavailabl e Encounter Details Date Type Department Care Team (Late st Contact Info) Description 10/17/2020 Transcribed Document [facility] [place] [address] ProviderDarrell MD [address] [place], [place] [address] Social History Tobacco Use Types Packs/Day Years Used Date Smoking Tobacco: Never Assessed Comments Unknown Sex and Gender Information Value Date Recorded Sex Assigned at Not on file Legal Sex Female 6:16 PM CDT Gender Identity Not on file Sexual Orientation Not on file documented as of this encounter Miscellaneous Notes * [employer] Conversion Note - Historical ProviderMD - 10/17/2020 8:40 PM EMPLOYEE HEALTH NURSE ED Event Note Entered On: 10/17/2020 20:40 [...]
--- OUTSIDE RECORDS SUMMARY | 2025-10-26 10:41 | XMS_ITS ---
Laboratory report Created on: October 05, 2025 FERMIN DEVRIES : 1965 Sex: Female Author Organization Unknown PROBLEMS Problems List Code Description RESULTS Laboratory Orders Date Order Code Test 2025-06-29 114920 GABAPENTIN, URIN E Laboratory Results Date LOINC Test Value Unit Reference Range Interpre tation 2025-06-29 67155-6 GABAPENTIN, URINE N UG/ML
--- OUTSIDE RECORDS SUMMARY | 2025-10-26 10:41 | XMS_ITS | Encounter Summary ---
Author Organization [employer] ([place], [place], [place], [place], [place]) Address [address] [place] [address] Care Team Providers Care Contractor Buyer Name Role Phone Unavailable Primary Care Provider Unavailabl e Encounter Details Date Type Department Care Team (Late st Contact Info) Description 09/02/2020 Transcribed Document [facility] [place] Family Medicine [address] [place] [address] ProviderDarrell MD [address] [place] [address] Social History Tobacco Use Types Packs/Day Years [...] help with the pain. She is taking [place] 3 times daily as needed and Lyrica [...] with alcohol, or self-escalate it. 2. Continue [place] 7.5/325 mg 3 times daily as needed. [...] visit and the patient has been afebrile. /[id number] FLOYD Mullins/MIRIAN / PITA / MODL CC: Janes Mason MD documented in this encounter Plan of Treatment Not on file documented as of this encounter Visit Diagnoses Not on filedocumented in this encounter
--- OUTSIDE RECORDS SUMMARY | 2025-10-26 10:41 | XMS_ITS | Encounter Summary ---
Author Organization [employer] ([place], [place], [place], [place], [place]) Address [address] [place] [address] Care Team Providers Care Commercial Property Manager Name Role Phone Unavailable Primary Care Provider Unavailabl e Encounter Details Date Type Department Care Team (Late st Contact Info) Description 05/10/2020 Transcribed Document [facility] [place] [facility] [address] ProviderDarrell MD [address] [place] [address] Social History Tobacco Use Types Packs/Day Years [...] sedation, driving problem, or GI problem. Her tree puller recently placed her on Cymbalta 30 mg [...] and walking. 8. I agree with her tree puller to continue with Cymbalta 30 mg at [...] visit and the patient has been afebrile. /[id number] Pepe Krishna MD, BLAKE Pain Certified KR/AQ / KR / MODL CC: Janes Mason MD Electronically signed by [employer], [facility] Conversion Parts Salesperson Cerner at 02/18/2023 5:04 PM CDT documented in this encounter Plan of Treatment Not on file documented as of this encounter Visit Diagnoses Not on filedocumented in this encounter
--- OUTSIDE RECORDS SUMMARY | 2025-10-26 10:41 | XMS_ITS | Encounter Summary ---
Author Organization [employer] ([place], [place], [place], [place], [place]) Address [address] [place] [address] Care Team Providers Care Favor Maker Name Role Phone Unavailable Primary Care Provider Unavailabl e Encounter Details Date Type Department Care Team (Late st Contact Info) Description 06/27/2020 Transcribed Document [facility] [place] [facility] [place] [address] ProviderDarrell MD [address] [place] [address] Social History Tobacco Use Types Packs/Day Years [...] visit and the patient has been afebrile. /[id number] DICTATED BY: Jazz Orta APRN for Pepe Krishna MD, BLAKE Pain Certified Pepe Krishna MD, BLAKE Pain Certified PITA/AQ / PITA / MODL CC: REYES (REF) MD AUDIE documented in this encounter Plan of Treatment Not on file documented as of this encounter Visit Diagnoses Not on filedocumented in this encounter
--- OUTSIDE RECORDS SUMMARY | 2025-10-26 10:41 | XMS_ITS | Encounter Summary ---
Author Organization [employer] ([place], [place], [place], [place], [place]) Address [address] [place] [address] Care Team Providers Care Employment Training Specialist Name Role Phone Unavailable Primary Care Provider Unavailabl e Encounter Details Date Type Department Care Team (Late st Contact Info) Description 03/14/2020 Transcribed Document [facility] [place] [facility] [place] [address] ProviderDarrell MD [address] [place] [address] Social History Tobacco Use Types Packs/Day Years [...] also trying to wean herself off her Carpio by doing one-half tablet at a time. [...] it. 2. We are going to continue Carpio 7.5/325 mg three times daily as needed. [...] medications for this patient's treatment plan today. /[id number] Jazz FLOYD Church/AQ / PITA / MODL CC: FLOYD Lazo MD Electronically signed by [employer], [facility] Conversion Repairer Helper Cerner at 02/18/2023 5:02 PM CDT documented in this encounter Plan of Treatment Not on file documented as of this encounter Visit Diagnoses Not on filedocumented in this encounter
--- OUTSIDE RECORDS SUMMARY | 2025-10-26 10:41 | XMS_ITS | Clinical Summary ---
Author Organization Healthcare Address [address] [id number] Care Team Providers Care Railroad Yard Worker Name Role Phone Janes Mason MD Primary Care Provider [phone] Social History Tobacco Use Types Packs/Day Years [...] 2 - PCV20 or PCV21) 10/24/2019 10/24/2018 [id number] Vaccine ( season) 2025 09/14/2021, 02/24/2021, 01/10/2021 UKY-Influenza Vaccine (#1) 2025 HPV Vaccines (No Doses Required) Completed UKY-HIB Vaccines Aged Out No longer e [...] patient's age to complete this topic Insurance [facility] MEDIC[facility] Care Teams Railroad Yard Worker Relationship Specialty [place] [id number] PCP - General 03/17/21
--- OUTSIDE RECORDS SUMMARY | 2025-10-26 10:41 | XMS_ITS | Encounter Summary ---
Author Organization [email or web address] ([place], [place], [place], [place], [place]) Address [address] [place] [address] Care Team Providers Care Police Superintendent Name Role Phone Unavailable Primary Care Provider Unavailabl e Encounter Details Date Type Department Care Team (Late st Contact Info) Description 02/15/2020 Transcribed Document [facility] [place] [address] [place] [address] ProviderDarrell MD [address] [place] [address] Social History Tobacco Use Types Packs/Day Years [...] following up for medication refills of her Wolf and gabapentin. She reports that she is having pain in the left side of her neck. She says the pain never changes. She reports that the pain is ypxc-xu-nkkiyiny at times. She says that the pain does radiate to the left shoulder. She reports that her pain is an aching sensation. She says she does have associated symptoms of depression and fatigue. She is using cold in addition to taking her Lyrica and Wolf as prescribed. The patient says she does [...] and tooth loss. She says that the men's leather dress belt maker did say she was negative for Sjogren's but she does have an elevated ESR. The patient says that she does have a child abuse worker, Dr. Crow at [facility], however, she has not seen him in [...] 100 mg 3 times daily. 3. Continue Wolf 7.5/325 mg 3 times daily as needed. [...] today and make an appointment with her child abuse worker in light of her symptoms so that it can be ruled out if there is any cardiac issue ongoing and she has voiced understanding and agrees to do that today. 8. We are going to see the patient back in 1 month to re-evaluate. 9. The assessment and plan for today's visit has been reviewed by Dr. Krisnha, however, I have prescribed the medications for this patient's treatment plan today. /[id number] FLOYD Mullins/MIRIAN / PITA / MODL documented in this encounter Plan of Treatment Not on file documented as of this encounter Visit Diagnoses Not on filedocumented in this encounter
--- OUTSIDE RECORDS SUMMARY | 2025-10-26 10:41 | XMS_ITS | Encounter Summary ---
Author Organization [employer] ([place], [place], [place], [place], [place]) Address [address] [place] [address] Care Team Providers Care Finished Cigar Maker Name Role Phone Unavailable Primary Care Provider Unavailabl e Encounter Details Date Type Department Care Team (Late st Contact Info) Description 10/17/2020 Transcribed Document [facility] [place] [address] [place] [address] ProviderDarrell MD [address] [place] [address] Social History Tobacco Use Types Packs/Day Years Used Date Smoking Tobacco: Never Assessed Comments Unknown Sex and Gender Information Value Date Recorded Sex Assigned at Not on file Legal Sex Female 6:16 PM CDT Gender Identity Not on file Sexual Orientation Not on file documented as of this encounter Miscellaneous Notes * Cerner Conversion Note - Historical ProviderMD - 10/17/2020 4:38 PM PILOT STEAM YACHT [place] Violence Assessment Entered On: 10/17/2020 22:43 [...]
--- OUTSIDE RECORDS SUMMARY | 2025-10-26 10:41 | XMS_ITS | Encounter Summary ---
Author Organization [employer] ([place], [place], [place], [place], [place]) Address [address] [place] [address] Care Team Providers Care Cnc Operator Name Role Phone Unavailable Primary Care Provider Unavailabl e Encounter Details Date Type Department Care Team (Late st Contact Info) Description 10/17/2020 Transcribed Document [facility] [place] [facility] [place] [address] ProviderDarrell MD [address] [place] [address] [phone] Social History Tobacco Use Types Packs/Day Years Used Date Smoking Tobacco: Never Assessed Comments Unknown Sex and Gender Information Value Date Recorded Sex Assigned at Not on file Legal Sex Female 6:16 PM CDT Gender Identity Not on file Sexual Orientation Not on file documented as of this encounter Miscellaneous Notes * Cerner Conversion Note - Historical ProviderMD - 10/17/2020 11:14 PM MARBLE CUTTER OPERATOR ED Discharge Entered On: 10/17/2020 23:14 [...]
--- OUTSIDE RECORDS SUMMARY | 2025-10-26 10:42 | XMS_ITS | Encounter Summary ---
Author Organization [email or web address] ([place], [place], [place], [place], [place]) Address [address] [place] [address] Care Team Providers Care Systems Program Manager Name Role Phone Unavailable Primary Care Provider Unavailabl e Encounter Details Date Type Department Care Team (Late st Contact Info) Description 05/11/2019 Transcribed Document [facility] [place] [facility] [place] [address] ProviderDarrell MD [address] [place] [address] Social History Tobacco Use Types Packs/Day Years [...] says that she has been taking her [place] 2-3 times daily as needed. The patient [...] Lyrica 100 mg 3 times daily and [place] 7.5/325 mg 2-3 times daily as needed. [...] to give the patient 7.5/325 mg of [place] 3 times a day consistently with #90 [...] Electronically signed by [facility] Conversion Credit Assistant Cerner at 02/18/2023 5:01 PM CDT documented in this encounter Plan of Treatment Not on file documented as of this encounter Visit Diagnoses Not on filedocumented in this encounter
--- OUTSIDE RECORDS SUMMARY | 2025-10-26 10:42 | XMS_ITS | Encounter Summary ---
Author Organization [employer] ([place], [place], [place], [place], [place]) Address [address] [place] [address] Care Team Providers Care Construction Equipment Technician Name Role Phone Unavailable Primary Care Provider Unavailabl e Encounter Details Date Type Department Care Team (Late st Contact Info) Description 08/17/2019 Transcribed Document [facility] [place] [facility] [place] [address] ProviderDarrell MD [address] [place] [address] Social History Tobacco Use Types Packs/Day Years [...] Dr. Janes Mason Electronically signed by [employer] Conversion Telemetry Technician Cerner at 02/18/2023 4:52 PM CDT documented in this encounter Plan of Treatment Not on file documented as of this encounter Visit Diagnoses Not on filedocumented in this encounter
--- OUTSIDE RECORDS SUMMARY | 2025-10-26 10:42 | XMS_ITS | Encounter Summary ---
Author Organization [employer] ([place], [place], [place], [place], [place]) Address [address] [place] [address] Care Team Providers Care Guest Service Aide Name Role Phone Unavailable Primary Care Provider Unavailabl e Encounter Details Date Type Department Care Team (Late st Contact Info) Description 11/10/2019 Transcribed Document [facility] [place] [address] [place] [address] ProviderDarrell MD [address] [place] [address] Social History Tobacco Use Types Packs/Day Years Used Date Smoking Tobacco: Never Assessed Comments Unknown Sex and Gender Information Value Date Recorded Sex Assigned at Not on file Legal Sex Female 6:16 PM CDT Gender Identity Not on file Sexual Orientation Not on file documented as of this encounter Miscellaneous Notes * Cerner Conversion Note - Historical ProviderMD - 11/10/2019 8:58 AM FLAT BED OPERATOR DATE OF ADMISSION: 11/09/2019 HISTORY OF PRESENT [...] home exercises in addition to taking her [place] 3 times daily as needed and her Lyrica 3 times daily. The patient says that she is currently seeing a physical instructor every 3 months due to some respiratory [...] if we could refer her to a exercise instructor that she would like to be evaluated [...] with alcohol, or self-escalate it. 2. Continue [place] 7.5/325 mg 3 times daily as needed. [...] to do a consult to Rheumatology with Nenka Carson APRN. 10. We are going to see the patient back in 1 month to re-evaluate. 11. The assessment and plan for today's visit have been reviewed by Dr. Krishna, however, I have prescribed the medications for this patient's treatment plan today. /[id number] DICTATED BY: Jazz Orta APRN for Pepe Krishna MD, BLAKE Pain Certified Pepe Krishna MD, BLAKE Pain Certified PITA/AQ / PITA / MODL CC: FLOYD Lazo MD Electronically signed by [facility] Conversion Sports Attorney Cerner at 02/18/2023 5:00 PM CDT documented in this encounter Plan of Treatment Not on file documented as of this encounter Visit Diagnoses Not on filedocumented in this encounter
--- OUTSIDE RECORDS SUMMARY | 2025-10-26 10:42 | XMS_ITS | Encounter Summary ---
Author Organization [employer] ([place], [place], [place], [place], [place]) Address [address] [place] [address] Care Team Providers Care Casing Wringer Operator Name Role Phone Unavailable Primary Care Provider Unavailabl e Encounter Details Date Type Department Care Team (Late st Contact Info) Description 10/12/2019 Transcribed Document [facility] [place] [facility] [place] [address] ProviderDarrell MD [address] [place] [address] Social History Tobacco Use Types Packs/Day Years Used Date Smoking Tobacco: Never Assessed Comments Unknown Sex and Gender Information Value Date Recorded Sex Assigned at Not on file Legal Sex Female 6:16 PM CDT Gender Identity Not on file Sexual Orientation Not on file documented as of this encounter Miscellaneous Notes * Cerner Conversion Note - Historical ProviderMD - 10/12/2019 2:22 PM RN RESOURCE NURSE DATE OF ADMISSION: 10/12/2019 Darshana Barr is [...] will discuss it in the next visit. /[id number] Pepe Krishna MD, BLAKE Pain Certified KR/AQ / KR / MODL CC: Janes Mason MD documented in this encounter Plan of Treatment Not on file documented as of this encounter Visit Diagnoses Not on filedocumented in this encounter
--- OUTSIDE RECORDS SUMMARY | 2025-10-26 10:42 | XMS_ITS | Encounter Summary ---
Author Organization [employer] ([place], [place], [place], [place], [place]) Address [address] [place] [address] Care Team Providers Care Property Man Name Role Phone Unavailable Primary Care Provider Unavailabl e Encounter Details Date Type Department Care Team (Late st Contact Info) Description 04/14/2019 Transcribed Document [facility] [place] [facility] [place] [address] ProviderDarrell MD [address] [address] Social History Tobacco Use Types Packs/Day Years [...] Dr. Janes Mason Electronically signed by [facility] Conversion Axle Turner Cerner at 02/18/2023 4:56 PM CDT documented in this encounter Plan of Treatment Not on file documented as of this encounter Visit Diagnoses Not on filedocumented in this encounter
--- OUTSIDE RECORDS SUMMARY | 2025-10-26 10:42 | XMS_ITS | Encounter Summary ---
Author Organization [employer] ([place], [place], [place], [place], [place]) Address [address] [place] [address] Care Team Providers Care Caustic Mixer Name Role Phone Unavailable Primary Care Provider Unavailabl e Encounter Details Date Type Department Care Team (Late st Contact Info) Description 12/15/2019 Transcribed Document [facility] [place] [address] ProviderDarrell MD [address] [place] [address] Social History Tobacco Use Types Packs/Day Years Used Date Smoking Tobacco: Never Assessed Comments Unknown Sex and Gender Information Value Date Recorded Sex Assigned at Not on file Legal Sex Female 6:16 PM CDT Gender Identity Not on file Sexual Orientation Not on file documented as of this encounter Miscellaneous Notes * Cerner Conversion Note - Historical ProviderMD - 12/15/2019 1:46 PM SPORTS EQUIPMENT SUPERVISOR DATE OF ADMISSION: 12/15/2019 HISTORY OF PRESENT [...] Lyrica 100 mg three times daily, and [place] 7.5/325 mg three times daily as needed. [...] 100 mg three times daily. 4. Continue [place] 7.5/325 mg three times daily as needed. [...] patient to attend her workup with the rpg programmer. 9. We are going to see the patient back in 1 month to re-evaluate. 10. The assessment and plan for today's visit have been reviewed by Dr. Krishna, however, I have prescribed the medications for this patient's treatment plan today. /[id number] Jazz Orta APRN PITA/AQ / PITA / MODL CC: MD Nneka Alcantar APRN documented in this encounter Plan of Treatment Not on file documented as of this encounter Visit Diagnoses Not on filedocumented in this encounter
--- OUTSIDE RECORDS SUMMARY | 2025-10-26 10:42 | XMS_ITS | Encounter Summary ---
Author Organization [employer] ([place], [place], [place], [place], [place]) Address [address] [place] [address] Care Team Providers Care Car Varnisher Name Role Phone Unavailable Primary Care Provider Unavailabl e Encounter Details Date Type Department Care Team (Late st Contact Info) Description 01/18/2020 Transcribed Document [facility] [place] [address] [place] [address] ProviderDarrell MD [address] [place] [address] Social History Tobacco Use Types Packs/Day Years [...] she has been on prednisone and a Z-Roahn. She says that she is feeling slightly [...] her Lyrica 3 times daily and her [place] 3 times daily as needed. The patient says that the use of the medication makes her more functional. She denies any adverse effects including toxic effect, sedation, driving problems, or GI problems. The patient says she did go to the Rheumatology appointment and had lots of blood work done, but has not gotten the results yet and has a followup with the worm farmer in February. REVIEW OF SYSTEMS: The patient [...] 100 mg 3 times daily. 3. Continue [place] 7.5/325 mg 3 times daily as needed. [...] medications for this patient's treatment plan today. /[id number] FLOYD Mullins/MIRIAN / PITA / MODL CC: MD Nneka Alcantar APRN Electronically signed by [facility] Conversion Cook Specialty Cerner at 02/18/2023 4:48 PM CDT documented in this encounter Plan of Treatment Not on file documented as of this encounter Visit Diagnoses Not on filedocumented in this encounter
--- OUTSIDE RECORDS SUMMARY | 2025-10-26 10:42 | XMS_ITS | Encounter Summary ---
Author Organization [employer] ([place], [place], [place], [place], [place]) Address [address] [place] [address] Care Team Providers Care Political Science Chair Name Role Phone Unavailable Primary Care Provider Unavailabl e Encounter Details Date Type Department Care Team (Late st Contact Info) Description 01/05/[address] [facility] [place] [facility] [place] [address] ProviderDarrell MD [address] [place] [address] [phone] Social History Tobacco Use Types Packs/Day Years Used Date Smoking Tobacco: Never Assessed Comments Unknown Sex and Gender Information Value Date Recorded Sex Assigned at Not on file Legal Sex Female 6:16 PM CDT Gender Identity Not on file Sexual Orientation Not on file documented as of this encounter Miscellaneous Notes * Cerner Conversion Note - Historical ProviderMD - 01/05/2019 1:45 PM DISH WASHER DATE OF ADMISSION: 01/05/2019 HISTORY OF PRESENT [...] now. The patient does continue to take [place] 7.5/325 mg 2-3 times a day as [...] 5. Long-term opioid use. PLAN: 1. Refill [place] 7.5/325 mg 2-3 times a day as [...] Dr. Janes Mason Electronically signed by [employer] [facility] Conversion Optic Fibre Drawer Cerner at 02/18/2023 4:50 PM CDT documented in this encounter Plan of Treatment Not on file documented as of this encounter Visit Diagnoses Not on filedocumented in this encounter
--- OUTSIDE RECORDS SUMMARY | 2025-10-26 10:42 | XMS_ITS ---
Laboratory report Created on: October 05, 2025 FERMIN DEVRIES : 1965 Sex: Female Author Organization Unknown PROBLEMS Problems List Code Description RESULTS Laboratory Orders Date Order Code Test 2023-12-05 [id number] ALLERGENS W/TOTA L IGE AREA 5 Laboratory Results Date LOINC Test Value Unit Reference Range Interpre tation 2023-12-05 70695-6 IMMUNOGLOBULIN E, TOTAL 39 IU/ML 6-495 2023-12-05 6096-2 Y106-RFY D PTERONYSSINUS .54 KU/L A 2023-12-05 6095-4 K176-OZR D FARINAE .58 KU/L A 2023-12-05 6833-8 F367-HKY CAT DANDER .13 KU/L A 2023-12-05 6098-8 W592-ZZY DOG DANDER .84 KU/L A 2023-12-05 6041-8 M182-JCS BERMUDA GRASS <0.10 KU/L 2023-12-05 6265-3 T361-DZJ KATHY GRASS <0.10 KU/L 2023-12-05 6078-0 X116-MOH COCKROA CH, TAMAZIGHT <0.10 KU/L 2023-12-05 6212-5 M791-LDE PENICIL LIUM CHRYSOGEN <0.10 KU/L 2023-12-05 6075-6 T943-WAE CLADOSP ORIUM HERBARUM <0.10 KU/L 2023-12-05 6025-1 F378-YHZ ASPERGI LLUS FUMIGATUS <0.10 KU/L 2023-12-05 6020-2 Z124-HPY ALTERNA OSMAN ALTERNATA .1 KU/L A 2023-12-05 7155-5 U966-IIG MAPLE/B OX ELDER <0.10 KU/L 2023-12-05 75077-8 N075-KVR COMMON SILVER BIRCH <0.10 KU/L 2023-12-05 6178-8 S226-PBV CEDAR, MOUNTAIN <0.10 KU/L 2023-12-05 6189-5 O930-FQQ OAK, WHITE <0.10 KU/L 2023-12-05 6109-3 D046-ZIM ELM, KENYAN <0.10 KU/L 2023-12-05 53610-7 J666-GWG WALNUT <0.10 KU/L 2023-12-05 54634-0 Z959-QCE MAPLE L EAF SYCAMORE <0.10 KU/L 2023-12-05 6090-5 U299-AWT COTTON[place]OD <0.10 KU/L 2023-12-05 6278-6 K162-PXV PAULO, WHITE <0.10 KU/L 2023-12-05 6209-1 K269-YMG PECAN, HICKORY <0.10 KU/L 2023-12-05 6281-0 D051-OYN WHITE MULBERRY <0.10 KU/L 2023-12-05 6085-5 S007-TUI RAGWEED, SHORT 4.35 KU/L A 2023-12-05 6234-9 E338-SAV THISTLE , COSTA RICAN <0.10 KU/L 2023-12-05 7604-2 K800-QPZ PIGWEED , COMMON <0.10 KU/L 2023-12-05 6244-8 H743-NTV SHEEP SORREL <0.10 KU/L 2023-12-05 6181-2 G779-GBI MOUSE URINE .22 KU/L A
--- OUTSIDE RECORDS SUMMARY | 2025-10-26 10:42 | XMS_ITS | Encounter Summary ---
Author Organization [employer] ([place], [place], [place], [place], [place]) Address [address] [place] [address] Care Team Providers Care Incoming Freight Clerk Name Role Phone Unavailable Primary Care Provider Unavailabl e Encounter Details Date Type Department Care Team (Late st Contact Info) Description 09/24/2019 Transcribed Document [facility] [place] [facility] [place] [address] Darrell Flores MD [address] [place] [phone] Social History Tobacco Use Types Packs/Day Years Used Date Smoking Tobacco: Never Assessed Comments Unknown Sex and Gender Information Value Date Recorded Sex Assigned at Not on file Legal Sex Female 6:16 PM CDT Gender Identity Not on file Sexual Orientation Not on file documented as of this encounter Miscellaneous Notes * Cerner Conversion Note - Darrell Flores MD - 09/24/2019 11:59 AM GAS AND OIL CHECKER DATE OF PROCEDURE: 09/24/2019 SURGEON: Pepe Krishna [...] to continue with the same plan. 1. [place] 7.5/325 three times a day. 2. Lyrica 100 mg 3 times a day. 3. Robaxin 750 mg 3 times a day. 4. Movantik 25 mg 1 a day. 5. I am going to see the patient after 2 to 4 weeks to re-evaluate her. /[id number] Pepe Krishna MD, BLAKE Pain Certified EN/MIRIAN / EN / MODL /[id number] Electronically signed by [employer], [facility] Conversion Firestopper Installer Cerner at 02/18/2023 5:03 PM CDT documented in this encounter Plan of Treatment Not on file documented as of this encounter Visit Diagnoses Not on filedocumented in this encounter
--- OUTSIDE RECORDS SUMMARY | 2025-10-26 10:42 | XMS_ITS | Encounter Summary ---
Author Organization [employer] ([place], [place], [place], [place], [place]) Address [address] [place] [address] Care Team Providers Care Garage Mechanic Name Role Phone Unavailable Primary Care Provider Unavailabl e Encounter Details Date Type Department Care Team (Late st Contact Info) Description 02/09/2019 Transcribed Document [facility] [place] [facility] [place] [address] Darrell Flores MD [address] [place] [address] Social History Tobacco Use Types Packs/Day Years [...] patient states that she did see her undertaker helper and has some of her COPD medications [...] filled. The patient does continue to take [place] 7.5/325 mg 2-3 times a day as [...] 5. Long-term opioid use. PLAN: 1. Refill [place] 7.5/325 mg 2-3 times a day as [...] Mason Electronically signed by Landon Grubbs Conversion Distance Learning Administrator Cerner at 02/18/2023 4:54 PM CDT documented in this encounter Plan of Treatment Not on file documented as of this encounter Visit Diagnoses Not on filedocumented in this encounter
--- OUTSIDE RECORDS SUMMARY | 2025-10-26 10:42 | XMS_ITS | Encounter Summary ---
Author Organization [employer] ([place], [place], [place], [place], [place]) Address [address] [place] [address] Care Team Providers Care Diplomatic Officer Name Role Phone Unavailable Primary Care Provider Unavailabl e Encounter Details Date Type Department Care Team (Late st Contact Info) Description 03/17/2019 Transcribed Document [facility] [place] [address] ProviderDarrell MD [address] [place] [address] Social History Tobacco Use Types Packs/Day Years [...] signed by [employer] Conversion Maintenance Worker Swimming Pool Cerner at 02/18/2023 4:50 PM CDT documented in this encounter Plan of Treatment Not on file documented as of this encounter Visit Diagnoses Not on filedocumented in this encounter
--- OUTSIDE RECORDS SUMMARY | 2025-10-26 10:42 | XMS_ITS | Data Portability ---
Author Organization [facility] BEN [place] [facility] Address [address] [place] [address] Care Team Providers Care Senior Lead Java Developer Name Role Phone JOHNCARI ANDERSON Pain Management TMO CHRISTOPHER Referring Provider [phone] Assessment Encounter Date Assessment Date Assessment LastModified [...] upper extremity pain, last seen here 10/03/17, [facility] cervical [facility]. She describes pain in her neck which [...] hospitalization. She also talked to [facility] back in 2017 and they also [...] citrullina yadira peptide) iga+igg, serum 2019 020 [facility], [address] [place] [address], [address], 0 02:31:52 C reactive protein, QN, serum or plasma 2019 020 [facility], [address] [place] [address], [address], 0 12:05:13 rf (rheumatoi d factor), serum 2019 [facility], [address] [place] [address], [address], 0 12:05:16 ESR (erythrocy te sedimentat ion rate), blood 2019 [facility], [address] [place] [address], [address], 0 12:07:47 uric acid, serum or plasma 2019 020 [facility], [address] [place] [address], [address], 0 12:05:14 SHAHLA (antinucle ar antibodies ) panel, serum 2019 [facility], [address] [place] [address], [address], 0 20:24:27 sjogren antibody panel, serum 2019 020 [facility], [address] [place] [address], [address], 0 14:33:56 thyroid panel, serum 2019 020 [facility], [address] [place] [address], [address], 0 15:14:22 hepatitis (A+B+C) panel, serum 2019 [facility], [address] [place] [address], [address], 0 12:34:14 T4, total, serum 2019 020 [facility], [address] [place] [address], [address], 0 12:08:33 T3, total, serum 2019 020 [facility], [address] [place] [address], [address], 0 12:08:34 TSH, serum or plasma 2019 020 [facility], [address] [place] [address], [address], 0 12:15:13 Referral None recorded. Procedures None recorded. Surgeries None recorded. Imaging CT, cervical spine, w/o contrast 2016 017 [facility], [address] [place] [address], [address], 7 13:34:59 Medication Orders duloxetine 30 mg capsule,de layed release 2019 020 [facility], [address] [place], [address], 0 13:36:37 Patient TargetsNo targets recorded. Patient Instructions Encounter Date Encounter Id Patient Instructions Last Modified By Organization Details Last Modified Time 06/25/2017 [id number] cervical spondylosis: care instructions JOAO Not available 06/26/2017 17:52:28 neck arthritis: exercises JOAO Not available 06/26/2017 17:52:28 10/03/2017 [id number] cervical spondylosis: care instructions JOAO Not available [...] exclu de infla mmato ry proce sses. [place] yadira hanna ntrat ions of < 5 mg/dL in acute disea se occur in the prese nce of sligh t to moder ate infla mmato ry proce sses. Value s > 5 mg/dL indic ate high and exten sive infla mmato ry activ ity. Not Available [facility] [address] [place] [address], [address], 12/15/2019 12:05:13 12/15/1912/15/2019 uric acid, serum or plasm a uric acid 5.2 mg/dL 2.4-5. 7 normal Not Available [facility] [address] [place] [address], [address], 12/15/2019 12:05:14 12/15/1912/15/2019 rf (rheu matoi d facto r), serum rf screen, quant. <10.0 IU/mL 0.0-13 .9 normal Not Available [facility] [address] [place] [address], [address], 12/15/2019 12:05:16 12/15/1912/15/2019 ESR (eryt hrocy te sedim entat ion rate) , blood ESR, automated 34 mm/HR 0-29 high Not Available [facility] [address] [place] [address], [address], 12/15/2019 12:07:47 12/15/1912/15/2019 T4, total , serum T4 (thyroxine) 8.69 ug/dL 4.50-1 1.70 normal Not Available [facility] [address] [place] [address], [address], 12/15/2019 12:08:32 12/15/1912/15/2019 T3, total , serum T3, total 110.0 NG/dL 80.0-2 00.0 normal Not Available [facility] [address] [place] [address], [address], 12/15/2019 12:08:34 12/15/19 20 12/15/2019 TSH, serum or plasm a TSH 1.870 uIU/m L 0.290- 5.500 normal Not Available [facility] [address] [place] [address], [address], 12/15/2019 12:15:13 12/15/19 20 12/15/2019 hepat itis (A+B+ C) panel , serum hepatitis B surface Ag NON-RE ACTIVE non-re active normal Not Available [facility] [address] [place] [address], [address], 12/16/2019 16:34:45 12/15/19 20 12/16/2019 hepat itis (A+B+ C) panel , serum hepatitis A Ab, IgM NON-RE ACTIVE non-re active normal For addit ional infor salvatore gunter e refer to http: //[facility] riley willis.milton lizamaia gnost ics.c om/fa q/FAQ 202 (This link is being provi ded for infor luci jaramillo/ educa karlee l purpo ses only. ) TEST PERFO RMED AT: [facility] [address] [facility] [place] [address] EVA Joshi MD Not Available [facility] [address] [place] [address], [address], 12/16/2019 16:34:45 12/15/19 20 12/16/2019 hepat itis (A+B+ C) panel , serum hepatitis B core Ab,IgM NON-RE ACTIVE non-re active normal TEST PERFO RMED AT: [facility] [address] [facility] [place] [address] EVA Joshi MD Not Available [facility] [address] [place] [address], [address], 12/16/2019 16:34:45 12/15/19 20 12/16/2019 hepat itis (A+B+ C) panel , serum hcab, reflex viral RNA qt NON-RE ACTIVE non-re active normal Not Available [facility] [address] [place] [address], [address], 12/16/2019 16:34:45 12/15/19 20 12/16/2019 hepat itis [...] a test for HCV RNA (test code 74506 ) is sugge sted. For addit ional infor luci chase e refer to http: //[facility] riley n.que stdia gnost ics.c om/fa q/FAQ 22v1 (This link is being provi ded for infor luci jaramillo/ educa karlee l purpo ses only. ) TEST PERFO RMED AT: [facility] [address] [place] [address] EVA Joshi MD Not Available [facility] [address] [place] [address], [address], 12/16/2019 16:34:45 12/15/19 20 12/16/2019 sjogr en antib ashish panel , serum ss-A Ab <1.0 NEG ai <1.0 neg normal Not Available [facility] [address] [place] [address], [address], 12/16/2019 14:33:56 12/15/19 20 12/16/2019 sjogr en antib ashish panel , serum ss-B Ab <1.0 NEG ai <1.0 neg normal TEST PERFO RMED AT: [facility] [address] [facility], [place] [phone] EVA Joshi MD Not Available [facility] [address] [place] [address], [address], 12/16/2019 14:33:56 12/15/19 20 12/16/2019 thyro id panel , serum thyroid peroxidase Ab 1 IU/mL <9 normal TEST PERFO RMED AT: [facility] [address] [facility] [place] [facility] [phone] EVA Joshi MD Not Available [facility] [address] [place] [address], [address], 12/16/2019 15:14:21 12/15/19 20 12/16/2019 thyro id panel , serum thyroglobuli n Ab <1 IU/mL < or = 1 normal TEST PERFO RMED AT[facility] [address] [facility] [place] [facility] [phone] EVA Joshi MD Not Available [facility] [address] [place] [address], [address], 12/16/2019 15:14:21 12/15/19 20 12/17/2019 ccp (cycl ic citru llina yaidra pepti de) iga+i gg, serum anti-ccp <16 units normal Refer ence Range Negat kevin: <20 Weak Posit kevin: 20-39 Moder ate Posit kevin: 40-59 Stron g Posit kevin: >59 TEST PERFO RMED AT: [facility] [address] [facility] [address] EVA Joshi MD Not Available [facility] [address] [place] [address], [address], 12/17/2019 02:31:52 12/15/19 20 12/17/2019 SHAHLA (anti [...] mmato ry myopa adelina . AC-0: Negat keivn Inter natio nal Conse nsus on SHAHLA Patte rns (http s://d oi.or g/10. 8175/ [facility]- 2017- 0052) For addit ional infor salvatore gunter e refer to http: //[facility] ri[facility] willis.Que stDia gnost ics.c om/fa q/FAQ 177 (This link is being provi ded for infor matio nal/ educa karlee l purpo ses only. ) TEST PERFO RMED AT: [facility] [place] [address] [place] [address] EVA Joshi MD Not Available [facility] [address] [place] [address], [place], [address], 12/17/2019 20:24:27 10/03/20 17 10/03/2017 CT, cervi avinash spine , w/o contr ast [facility] [address] [place] [address] Vickie gaytan Name: FERMIN gaytan : 89 [...] fied. The visual ized spinal cord and product management consultant ior fossa of the brain are normal [...] lindquist MD on 2016 1:29 PM rowenLewis [facility] [address] [place], [address], 10/08/2017 12:55:54 12/11/19 20 04/09/2017 CT, cervi avinash spine , w/o contr ast No observ ation record ed. BARCODE [facility] [address] [place], [address], 12/11/2019 10:01:47 12/11/19 20 04/09/2017 CT, cervi avinash spine , w/o contr ast No observ ation record ed. BARCODE [facility] [address] [place], [address], 12/11/2019 10:02:40 09/06/20 21 06/06/2021 MRI, cervi avinash spine , w/o contr ast No observ ation record ed. BARCODE Not Available 2020 09:43:13 10/05/20 21 09/08/2021 CT, cervi avinash spine , w/o contr ast No observ ation record ed. JOAO Reyes (Centralized Scheduling) [address] [place] [address] , [place], [address], 10/07/2021 11:52:54 Result Notes Documentation Provider Name and Address Organization Details Recorded Time Ct, Cervical Spine, W/o Contrast : [facility] [address] [place] [id number] Patient Name: FERMIN DEVRIES Patient : 1965 [...] By: Bartolo Madrid MD A BENAVIDEZ MD [address] [place] [address], [address] 10/08/2017 12:55:54 Problems Name Problem SNOMED Code Status Onset Date Resolution Date Notes Provider Name and Address Organization Details Recorded Time Degenerat ion of cervical intervert ebral disc 61946722 Active 2015 From Automated Load;Provi chago: Shelley Estevez;Sta tus: Active Not Available [facility] 6 08:00:27 Cervical spondylos is 930396734 Active 2015 From Automated Load;Provi chago: Velma Benavidez;Sta tus: Active Not Available [facility] 6 08:00:27 Cervical spondylos is with radiculop athy Active 2015 From Automated Load;Provi chago: Velma Benavidez;Sta tus: Active Not Available [facility] 7 02:42:32 Problem Notes None recorded. Procedures Surgical History Date Name Laterality Status Provider Name and Address Organization Details Recorded Time 11/07/19 17 Neck Surgery completed [facility] 12/11/2016 14:07:54 Appendectomy completed [facility] 10/18/2016 14:39:47 Cholecystectomy completed [facility] 10/18/2016 14:40:[address] [facility] 10/18/2016 14:40:46 Hysterectomy/revise vagina completed [facility] 10/18/2016 14:41:03 Unlisted procedure breast completed [facility] 10/18/2016 14:41:22 Imaging Results None recorded. Procedure Notes None recorded. Medical Equipment None Reported. Allergies Allergen ID Allergen Name Allergen Category Reaction Reaction Severity Criticality Documentation Date Start Date Code Code System Note Provider Name and Address Organization Details Recorded Time 821688 Tylenol medicatio n Not available Not available Not available 09/28/20162015 3 RxNorm Comme nt: Creat ed By: Russ Mercadoa yadira Date: 2015 10:01 :09 AM; Not Available [facility] 6 09:43:19 164828 Product containin g penicilli n (product) medicatio n Not available Not available Not available 09/28/20162015 81629 8001 SNOMED Comme nt: Creat ed By: Russ Mercadoa yadira Date: 2015 10:00 :53 AM; Not Available [facility] 6 10:21:54 228958 codeine medicatio n Not available Not available Not available 09/05/2021 2670 [facility] 14:02:38 Medications Name Sig Start Date [...] active Not Available Not Available Not Available Toney 5 mg-325 mg tablet Take 1 tablet [...] Address Organization Details Last Updated DateTime 0 87980.7 7 g 36.7 kg/m2 162.56 cm 18 /min 85 /min 120/73 mm[Hg] Lindy Ace [facility] 0 10:36:14 Date Recorded Body height Provider Name an d Address Organization Details Last Updated DateTime 04/27/2020 162.56 cm JAVAN RAMSEY, UMBRELLA FRAME MAKER [address] [place], [address], [facility] 04/27/2020 13:33:00 Date Recorded Body height Body mass index (BMI) Body weight Systolic And Diastolic Provider Name and Address Organization Details Last Updated DateTime 06/25/2017 162.56 cm 33.5 kg/m2 50586.51 g 114/70 mm[Hg] Yesi Porter [facility] 06/25/2017 13:24:53 Date Recorded Body height Body mass index (BMI) Body weight Heart rate Systolic And Diastolic Provider Name and Address Organization Details Last Updated DateTime 09/05/2021 162.56 cm 36 kg/m2 64198.4 g 92 /min 131/79 mm[Hg] Oliva Allen [facility] 09/05/2021 14:02:21 Date Recorded Body height Body mass index (BMI) Body weight Systolic And Diastolic Provider Name and Address Organization Details Last Updated DateTime 10/03/2017 162.56 cm 33.5 kg/m2 23335.51 g 130/66 mm[Hg] Yesi Porter [facility] 10/03/2017 14:20:42 Social History Question Answer Notes LastModified by Organizat ion Details LastModified Time Tobacco Smoking Status Never Smoker Yesi German [facility] 10/18/2016 14:42:09 What Was The Date Of Your Most Recent Tobacco Screening? 12/15/2019 [email or web address] Information not available 12/15/2019 How Much Tobacco Do You Smoke? No [email or web address] Information not available 12/15/2019 How Many Years Have You Smoked Tobacco? 0 [email or web address] Information not available 12/15/2019 Sex: Unknown Functional Status Question Answer Note LastModified by Organizat ion Details LastModified Time Do you or have you ever used smokeless tobacco? Never used smokeless tobacco [email or web address] Information not available 12/15/2019 Do you or have you ever used e-cigarettes or vape? Never used electronic cigarettes [email or web address] Information not available 12/15/2019 Mental Status None recorded. Family History Relationship Description Onset Age of this Age Resolved Age Notes LastModified by Organization Details LastModified Time Mother Cataract [email or web address] Not available 1 12/03/2016 14:20:50 Father Myocardial infarction [email or web address] Not available 12/25 14:30:44 Medical History Condition Response Emphysema N COPD N Arthritis Y Acid Reflux (GERD) Y Rheumatoid Arthritis N Bleeding Disorder N Asthma Y Diabetes N Heart Disease N Hypertension N Gynecological HistoryNo gynecological history recorded. Obstetrics History GPAL:G 0 P 0 0 0 0 Past Encounters Encounter ID Performer Location Encounter Start Date Encounter Closed Date Diagnosis/Indication Diagnosis SNOMED-CT Code Diagnosis ICD10 Code Diagnosis IMO Codes Diagnosis Note [id number] KRISHNA GIL MD NEUROLOGY [facility] [address] [place] [address] 10/18/2016 13:42:42 10/19/2016 08:06:37 Cervical radiculopathy 41345713 M54.12 Cervical s pondylosis with radiculopathy 712270542 M47.22 [id number] VELMA BENAVIDEZ MD NEUROSURG [facility] [address] [place] [address] 10/18/2016 14:29:12 10/19/2016 14:14:15 Cervical spondylosis 925449005 M47.738 [id number] CORA MAHAN PA-C [facility] [address] [place] [address] 11/13/2016 12:58:40 11/13/2016 13:57:49 Cervical radiculopathy 38921652 M54.12 Low back pain 639813929 M54.5 [id number] VELMA BENAVIDEZ MD [facility] [address] [place] [address] 12/11/2016 12:50:59 12/11/2016 14:40:06 Cervical spondylosis with radiculopathy 772854450 M47.22 [id number] JACQUI MOSLEY MD OPHTHALMO [address] [place] [address] 12/25/2016 13:39:27 12/27/2016 09:28:16 Diplopia 42073880 H53.2 Presbyopia 11662319 H52. 4 [id number] VELMA BENAVIDEZ MD [facility] [address] [place] [address] 03/12/2017 13:14:24 03/12/2017 14:22:08 Cervical spondylosis with radiculopathy 562435975 M47.22 [id number] VELMA BENAVIDEZ MD [facility] [address] [place] [address] 04/25/2017 11:23:28 04/25/2017 13:03:07 Cervical spondylosis with radiculopathy 243229531 M47.22 [id number] VELMA BENAVIDEZ MD [facility] [address] [place] [address] 06/25/2017 12:36:13 06/25/2017 14:17:37 Cervical spondylosis with radiculopathy 413021016 M47.22 Cervical spondylosis 387 251914 M47.513 [id number] VELMA BENAVIDEZ MD [facility] [address] [place] [address] 10/03/2017 13:59:12 10/03/2017 15:37:26 Cervical spondylosis 834244825 M47.166 [id number] JAVAN RAMSEY APRN [facility] [address] [address] 12/15/2019 09:54:18 12/15/2019 10:56:54 Pain of multiple joints 64730426 M25.50 chronic and recurring with worsening myalgia [...] to fibromyalg ia syndrome and oa Xerostomia 12975238 K11. 7 severe dry mouth; two cavities before age 52; teeth falling out now; dentist mentions concerns Fatigue 04258423 R53.83 worsening overall will assess thyroid panel and hepatitis panel to assess for further systemic disease [id number] JAVAN RAMSEY APRN RHEUMATOL [facility] [address] [place] [address] 04/27/2020 08:12:04 04/27/2020 14:05:49 Pain of multiple joints 67943647 M25.50 chronic and recurring with worsening myalgia [...] to fibromyalg ia syndrome and oa Xerostomia 59881685 K11. 7 severe dry mouth; two cavities before age 52; teeth falling out now; dentist mentions concerns Fatigue 83127703 R53.83 worsening overall will assess thyroid panel and hepatitis panel to assess for further systemic disease Fibromyalgia 335023131 M 79.7 chronic and recurring with worsening [...] outcome in 3 months or sooner prn [id number] MATTHEW DONAHUE PA-C [facility] [address] [facility] [address] [facility] [facility] [address] [place] [address] 09/05/2021 12:53:38 09/06/2021 09:26:09 Cervical radiculopathy 40233002 M54.12 Health Concerns Section Related Observation LastModified by Organization Detai ls LastModified Time None Recorded Concern Status LastModified by Organization Details LastModified Time None Recorded Advance Directives Directive None Recorded Payers Insurance Date Sequence Insurance Name Policy Number Policy Esteban Covered Member ID Esteban Member ID Guarantor Name 09/04/2021 3 [place] [id number] Fermin Devries [id number] Fermin Devries 09/16/2024 1 [place] [id number] Ja Devries [id number] Fermin Devries 09/04/2021 2 [place] Fermin Devries [id number] Fermin Devries Notes Date Note Type [...] filed for long-term disability. VELMA BENAVIDEZ MD [address] [place] [address], [address], [facility] 06/25/2017 14:03:07 10/03/2017 text/html Dear Dr. Mason, [...] She sees Dr. Krishna. She went to [facility] in July and no surgical recommendation was made. She continues to wear her bone stimulator. She wears a collar at night. VELMA BENAVIDEZ MD [address] [place] [address], [address], [facility] 10/03/2017 15:02:34 12/15/2019 text/html ROS as noted [...] and all others are negative JAVAN RAMSEY, [employer]MBRELLA [employer] MAK[employer] [address] [place] [address], [address], [facility] 12/27/2019 12:58:43 04/27/2020 text/html ROS as noted [...] and all others are negative JAVAN RAMSEY, UMBRELLA FRAME MAKER [address] [place], [address], [facility] 04/27/2020 13:38:23 09/05/2021 text/html ROS as noted in the HPI Ms. Devries is a 56yo female with history of asthma, COPD, osteoporosis, chronic neck pain, C5-[address] Benavidez November 2016 who presents today to our office for recheck of neck pain, upper extremity pain, last seen here 10/03/17, [facility]. She describes pain in her neck which [...] hospitalization. She also talked to [facility] back in 2017 and also did [...] was immediately postop. MATTHEW DONAHUE PA-C [address] [place], [address], [facility] 09/05/2021 14:57:55 OBGyn Episode No OBEpisode recorded.
--- OUTSIDE RECORDS SUMMARY | 2025-10-26 10:42 | XMS_ITS | Patient Health Record ---
Author Organization [facility] Address [address] [place] [address] Care Team Providers Care Batch Heat Treat Operator Name Role Phone Ilan Caballero [phone] Allergies Allergen (clinical drug ingredient) Drug/Non Drug [...] Risk Notes Problem Cervical spondylosis without myelopathy (913176766) Cervical spondylosis without myelopathy (M47.812) Active confirmed Problem Cervical post-laminectom y syndrome (673858869) Cervical post-laminectomy syndrome (M96.1) Active confirmed Problem Cervical spondylosis without myelopathy (114719858) Cervical spondylosis with radiculopathy (M47.22) Active confirmed Plan Of Treatment No Information Insurance Providers Payer Name Payer Address Payer Phone Subscriber Number Group Number Insured Name Patient Relationship to Insured Coverage Start Date Coverage End Date [employer]ACELI [employer] [address] [place] [address] [id number] Darshana Barr Self - patient is the insured Medicare C[employer] Administrators [address] [address] [place] [address] [id number] Darshana Barr Self - patient is the insured 0 [employer] [address] [place] [address] [id number] Darshana Barr Self - patient is the insured 0 Medical (General) History Medical History History ICD Code ALLERGIES ARTHRITIS ASTHMA DEPRESSION/ANXIETY EMPHYSEMA/COPD HIGH CHOLESTEROL THYROID DISEASE Surgical History Surgery Date(Month/Year) GALLBLADDER/APPENDIX 1991 TOTAL HYSTERECTOMY 2010 CERVICAL SURGERY C5-7 2017 [facility] ABORTED DUE TO SCAR TISSUE 2018 Hospitalization History Reason Date(Month/Year) DOUBLE PNEUMONIA 2018 [facility] 10/2020
--- OUTSIDE RECORDS SUMMARY | 2025-10-26 10:42 | XMS_ITS | Encounter Summary ---
Author Organization [employer] ([place], [place], [place], [place], [place]) Address [address] [place] [address] Care Team Providers Care Fisher Clam Name Role Phone Unavailable Primary Care Provider Unavailabl e Encounter Details Date Type Department Care Team (Late st Contact Info) Description 09/17/2019 Transcribed Document [facility] [place] [facility] [place] [address] Darrell Flores MD [address] [place] [address] [id number] Social History Tobacco Use Types Packs/Day Years Used Date Smoking Tobacco: Never Assessed Comments Unknown Sex and Gender Information Value Date Recorded Sex Assigned at Not on file Legal Sex Female 6:16 PM CDT Gender Identity Not on file Sexual Orientation Not on file documented as of this encounter Miscellaneous Notes * Cerner Conversion Note - Historical ProviderMD - 09/17/2019 1:43 PM COSTING MANAGER DATE OF ADMISSION: 09/17/2019 HISTORY: This is [...] 1 to 2 weeks to re-evaluate her. /[id number] Pepe Krishna MD, BLAKE Pain Certified EN/MIRIAN / EN / MODL CC: Janes Mason M.D. Electronically signed by [facility], [facility] Conversion Hot Mill Tin Roller Cerner at 02/18/2023 5:03 PM CDT documented in this encounter Plan of Treatment Not on file documented as of this encounter Visit Diagnoses Not on filedocumented in this encounter
--- OUTSIDE RECORDS SUMMARY | 2025-10-26 10:42 | XMS_ITS | Encounter Summary ---
Author Organization [employer] ([place], [place], [place], [place], [place]) Address [address] [place] [address] Care Team Providers Care Generation Engineer Name Role Phone Unavailable Primary Care Provider Unavailabl e Encounter Details Date Type Department Care Team (Late st Contact Info) Description 10/30/2018 Transcribed Document [facility] [place] [facility] [place] [address] Darrell Flores MD [address] [place] [address] [id number] Social History Tobacco Use Types Packs/Day Years Used Date Smoking Tobacco: Never Assessed Comments Unknown Sex and Gender Information Value Date Recorded Sex Assigned at Not on file Legal Sex Female 6:16 PM CDT Gender Identity Not on file Sexual Orientation Not on file documented as of this encounter Miscellaneous Notes * Cerner Conversion Note - Historical ProviderMD - 10/30/2018 1:58 PM BRAKE ASSEMBLER DATE OF ADMISSION: 10/30/2018 HISTORY OF PRESENT [...] 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 She states that they are starting on Symbicort and Spiriva to try to help her with it. The patient states that also they did tell her that she does have a small lung nodule in her lower lobe and that will heal itself. The patient does continue to take [place] 7.5/325 mg 2-3 times a day as [...] radiculopathy. 4. Cervical spondylosis. PLAN: 1. Refill [place] 7.5/325 mg 2-3 times a day as [...] Lula Denny APRN For Pepe Krishna M.D., BLAEK Pain Certified Pepe Krishna M.D., BLAKE Pain Certified Dict: 10/30/2018 13:58:26 Trans: 10/30/2018 16:26:04 CC1: Pepe Krishna M.D., BLAKE Pain Certified CC2: Dr. Janes Mason documented in this encounter Plan of Treatment Not on file documented as of this encounter Visit Diagnoses Not on filedocumented in this encounter
--- OUTSIDE RECORDS SUMMARY | 2025-10-26 10:42 | XMS_ITS ---
Laboratory report Created on: October 05, 2025 FERMIN DEVRIES : 1965 Sex: Female Author Organization Unknown PROBLEMS Problems List Code Description RESULTS Laboratory Orders Date Order Code Test 2025-08-17 [id number] STRONGYLOIDES IG G ANTIBODY Laboratory Results Date LOINC Test Value Unit Reference Range Interpre tation 2025-08-17 18443-1 STRONGYLOIDES IG G ANTIBODY N NEGATIVE
--- OUTSIDE RECORDS SUMMARY | 2025-10-26 10:42 | XMS_ITS ---
Laboratory report Created on: October 05, 2025 FERMIN DEVRIES : 1965 Sex: Female Author Organization Unknown PROBLEMS Problems List Code Description RESULTS Laboratory Orders Date Order Code Test 2024-10-22 [id number] OPIATES CONFIRMA TION, URINE 2024-10-22 [id number] OXYCODONE CONF, MS, UR Laboratory Results Date LOINC Test Value Unit Reference Range Interpre tation 2024-10-22 8251-1 FPRCF 2024-10-22 16772-1 OPIATES P NG/ML A 2024-10-22 3507-1 CODEINE NEG. 2024-10-22 3830-7 MORPHINE NEG. 2024-10-22 9834-3 HYDROMORPHONE P A 2024-10-22 33640-5 HYDROMORPHONE CO NF, MS, UR 1252 NG/ML 2024-10-22 89465-8 HYDROCODONE P A 2024-10-22 44002-5 HYDROCODONE CONF , MS, UR 2738 NG/ML 2024-10-22 85804-1 OXYCODONE/OXYMORPH NEG.
--- OUTSIDE RECORDS SUMMARY | 2025-10-26 10:42 | XMS_ITS | Encounter Summary ---
Author Organization [employer] ([place], [place], [place], [place], [place]) Address [address] [place] [address] Care Team Providers Care Airline Lounge Receptionist Name Role Phone Unavailable Primary Care Provider Unavailabl e Encounter Details Date Type Department Care Team (Late st Contact Info) Description 06/08/2019 Transcribed Document [facility] [place] [facility] [place] [address] ProviderDarrell MD [address] [place] [id number] Social History Tobacco Use Types Packs/Day Years [...] Lyrica 100 mg 3 times daily and [place] 7.5/325 mg 3 times daily as needed. [...] doing well with the increase in the [place] and it is giving her so much [...] with alcohol, or self-escalate it. 2. Continue [place] 7.5/325 mg 3 times daily. 3. Continue [...] for pain alleviation prior to taking her Salem, including heat, ice, relaxation, rest, and meditation. [...]
--- OUTSIDE RECORDS SUMMARY | 2025-10-26 10:42 | XMS_ITS | Encounter Summary ---
Author Organization [email or web address] ([place], [place], [place], [place], [place]) Address [address] [place] [address] Care Team Providers Care Video Game Producer Name Role Phone Unavailable Primary Care Provider Unavailabl e Encounter Details Date Type Department Care Team (Late st Contact Info) Description 07/17/2019 Transcribed Document [facility] [place] Family Medicine [facility] [place] [address] ProviderDarrell MD [address] [place] [id number] Social History Tobacco Use Types Packs/Day Years [...] Lyrica 100 mg 3 times daily and [place] 7.5/325 mg 3 times daily. The patient [...] with alcohol, or self-escalate it. 2. Continue [place] 7.5/325 mg 3 times daily as needed. [...] today. Dictated By: Jazz Orta APRN For Peep Krishna M.D., BLAKE Pain Certified Pepe Krishna M.D., BLAKE Pain Certified Dict: 07/17/2019 13:12:50 Trans: 07/17/2019 14:28:38 CC1: Pepe Krishna M.D., BLAKE Pain Certified CC2: Janes Mason MD documented in this encounter Plan of Treatment Not on file documented as of this encounter Visit Diagnoses Not on filedocumented in this encounter
--- OUTSIDE RECORDS SUMMARY | 2025-10-26 10:42 | XMS_ITS ---
Laboratory report Created on: October 05, 2025 FERMIN DEVRIES : 1965 Sex: Female Author Name [facility] Unknown PROBLEMS Problems List Code Description RESULTS Laboratory Orders Date Order Code Test 2025-09-23 [id number] TETANUS/DIPHTHER IA AB 2025-09-23 [id number] ISOHEMAGGLUTININ TITER 2025-09-23 [id number] PNEUMOCOCCAL AB (23 SEROTYPE) 2025-09-23 [id number] COMPLEMENT, TOTA L (CH50) 2025-09-23 [id number] IMMUNOGLOBULINS A/G/M, QN, SER Laboratory Results Date LOINC Test Value Unit Reference Range Interpre tation 2025-09-23 92090-5 TETANUS ANTITOXO ID IGG AB 1.31 IU/ML <0.10 2025-09-23 5116-9 DIPHTHERIA ANTIT OXOID AB .67 IU/ML <0.10 2025-09-23 18925-7 ANTIBODY SCREEN N 2025-09-23 883-9 BLOOD GROUPING A 2025-09-23 21385-1 A TITER NI 2025-09-23 57101-8 B TITER 1:16 2025-09-23 59717-4 PNEUMO AB TYPE 1* .2 UG/ML >1.3 L 2025-09-23 56845-6 PNEUMO AB TYPE 3* >6.1 UG/ML >1.3 2025-09-23 68568-7 PNEUMO AB TYPE 4* .2 UG/ML >1.3 L 2025-09-23 10118-2 PNEUMO AB TYPE 8* <0.3 UG/ML >1.3 L 2025-09-23 00695-0 PNEUMO AB TYPE 9 (9N)* .3 UG/ML >1.3 L 2025-09-23 38484-3 PNEUMO AB TYPE 1 2 (12F)* .5 UG/ML >1.3 L 2025-09-23 98065-4 PNEUMO AB TYPE 14* .1 UG/ML >1.3 L 2025-09-23 22395-1 PNEUMO AB TYPE 1 7 (17F)* <0.1 UG/ML >1.3 L 2025-09-23 68079-5 PNEUMO AB TYPE 1 9 (19F)* .6 UG/ML >1.3 L 2025-09-23 48029-0 PNEUMO AB TYPE 2* <0.2 UG/ML >1.3 L 2025-09-23 96911-1 PNEUMO AB TYPE 20* 1 UG/ML >1.3 L 2025-09-23 88500-0 PNEUMO AB TYPE 2 2 (22F)* .7 UG/ML >1.3 L 2025-09-23 86662-6 PNEUMO AB TYPE 2 3 (23F)* <0.1 UG/ML >1.3 L 2025-09-23 35583-0 PNEUMO AB TYPE 26 (6B)* 2.3 UG/ML >1.3 2025-09-23 03498-6 PNEUMO AB TYPE 3 4 (10A)* <0.1 UG/ML >1.3 L 2025-09-23 82564-6 PNEUMO AB TYPE 4 3 (11A)* 1 UG/ML >1.3 L 2025-09-23 46677-1 PNEUMO AB TYPE 5* .1 UG/ML >1.3 L 2025-09-23 67247-3 PNEUMO AB TYPE 51 (7F)* .7 UG/ML >1.3 L 2025-09-23 42603-7 PNEUMO AB TYPE 5 4 (15B)* <0.2 UG/ML >1.3 L 2025-09-23 11421-0 PNEUMO AB TYPE 5 6 (18C)* .6 UG/ML >1.3 L 2025-09-23 47135-8 PNEUMO AB TYPE 5 7 (19A)* 2.3 UG/ML >1.3 2025-09-23 13004-1 PNEUMO AB TYPE 68 (9V)* 2.6 UG/ML >1.3 2025-09-23 45437-2 PNEUMO AB TYPE 7 0 (33F)* 2 UG/ML >1.3 2025-09-23 4532-8 COMPLEMENT, TOTA L (CH50) >60 U/ML >41 2025-09-23 2465-3 IMMUNOGLOBULIN G , QN, SERUM 1089 MG/DL 586-1602 2025-09-23 2458-8 IMMUNOGLOBULIN A , QN, SERUM 404 MG/DL 87-352 H 2025-09-23 2472-9 IMMUNOGLOBULIN M , QN, SERUM 89 MG/DL 26-217
--- OUTSIDE RECORDS SUMMARY | 2025-10-26 10:43 | XMS_ITS ---
Laboratory report Created on: October 05, 2025 FERMIN DEVRIES : 1965 Sex: Female Author Organization Unknown PROBLEMS Problems List Code Description RESULTS Laboratory Orders Date Order Code Test 2025-06-29 [id number] PREGABALIN, URIN E Laboratory Results Date LOINC Test Value Unit Reference Range Interpre tation 2025-06-29 52099-2 PREGABALIN, URINE N UG/ML
--- OUTSIDE RECORDS SUMMARY | 2025-10-26 10:43 | XMS_ITS | Encounter Summary ---
Author Organization [employer] ([place], [place], [place], [place], [place]) Address [address] [place] [address] Care Team Providers Care Stage Setting Painter Apprentice Name Role Phone Unavailable Primary Care Provider Unavailabl e Encounter Details Date Type Department Care Team (Late st Contact Info) Description 01/06/2021 Transcribed Document [facility] [place] Family Medicine [address] [place] [address] ProviderDarrell MD [address] [place] [address] [phone] Social History Tobacco Use Types Packs/Day Years Used Date Smoking Tobacco: Never Assessed Comments Unknown Sex and Gender Information Value Date Recorded Sex Assigned at Not on file Legal Sex Female 6:16 PM CDT Gender Identity Not on file Sexual Orientation Not on file documented as of this encounter Miscellaneous Notes * Cerner Conversion Note - Darrell ProviderMD - 01/06/2021 12:45 PM TREE PULLER [facility] PACU Summary Primary Physician: SEA OLSON MD Finalized Date/Time: 01/06/21 13:56:56 Pt. Name: FERMIN BARR/Sex: 1965 Female Med Rec #: [id number] Physician: SEA OLSON MD Financial #: [id number] Pt. Type: O Room/Bed: END/ Admit/Disch: 01/06/21 11:16:00 - 01/06/21 13:55:00 Institution: [facility] PACU Case Times Entry 1 In PACU I 01/06/21 13:10:00 Ready for PACU 01/06/21 13:50:00 Discharge Discharge from PACU 01/06/21 13:56:00 I Last Modified By: Nessa Islas RN 01/06/21 13:56:53 [facility] PACU Case Times Audit 01/06/21 13:56:53 Live In Housekeeper Nanny: [id number] Modifier: [id number] <+> 1 Ready for PACU Discharge <+> 1 Discharge from PACU I Finalized By: Nessa Islas RN Document Signatures Signed By: Nessa Islas RN 01/06/21 13:56 documented in this encounter Plan of Treatment Not on file documented as of this encounter Visit Diagnoses Not on filedocumented in this encounter
--- OUTSIDE RECORDS SUMMARY | 2025-10-26 10:43 | XMS_ITS | Referral Summary ---
Author Organization [employer] ([place], [place], [place], [place], [place]) Address [address] [place] [address] Care Team Providers Care Electric Motor Repairman Name Role Phone Unavailable Primary Care Provider [...] HYDROcodone-elaine taminophen (NORCO) 5-325 mg per tablet [place] 5 mg-325 mg tablet Take 1 tablet [...] file Insurance MEDICARE PART A B CROSS/BLUE [facility]
--- OUTSIDE RECORDS SUMMARY | 2025-10-26 10:43 | XMS_ITS | Encounter Summary ---
Author Organization [email or web address] ([place], [place], [place], [place], [place]) Address [address] [place] [address] Care Team Providers Care Remarketing Rep Name Role Phone Unavailable Primary Care Provider Unavailabl e Encounter Details Date Type Department Care Team (Late st Contact Info) Description 01/06/2021 Transcribed Document [facility] [place] [facility] [place] [address] ProviderDarrell MD [address] [place] [address] [phone] Social History Tobacco Use Types Packs/Day Years Used Date Smoking Tobacco: Never Assessed Comments Unknown Sex and Gender Information Value Date Recorded Sex Assigned at Not on file Legal Sex Female 6:16 PM CDT Gender Identity Not on file Sexual Orientation Not on file documented as of this encounter Miscellaneous Notes * [employer]ner Conversion Note - Historical ProviderMD - 01/06/2021 12:16 PM RAILROAD WORKER Pre Procedure Adult Entered On: 01/06/2021 12:18 EST Performed On: 01/06/2021 12:16 EST by Ligia Walter RN Height and Weight, Clinical Dosing Height Source : Stated Height Entry Format : [place] Height, Feet : 5 ft(Converted to: 152 cm, 60 Inch) Height, Inches : 4 Inch(Converted to: 0 ft 4 Inch, 10.16 cm) Clinical Height : 162.56 cm Weight Source : Standing scale Weight Entry Format : [place] Clinical Dosing Weight : 99.15 kg Weight, Pounds : 218 lb Weight, Ounces : 2 oz Body Surface Area (BSA) : 2.03 m2 Body Mass Index : 37.5 kg/m2 (HI) [place] Body Weight : 54 kg Ligia Walter [...] Ligia Walter RN - 01/06/2021 12:16 EST [place] Suicide Severity Rating Scale (C-SSRS) CSSRS Past [...] Info Preferred Name : wilfred Support Person/Patient Contact Assembler : Yes Support Person/Pt Rep Name : Chrissy Barr, Marina Perez, mother Support Person/Pt Rep Contact Information : [phone] Want Family/Rep/Phys Notified of Admit : No Emergency Contact #1 : chrissy Emergency Contact #1 Emergency Contact #1 Relationship : spouse Emergency Contact #2 : Emergency Contact #2 Phone Number : Emergency Contact #2 Relationship : Primary Language : Bruneian Preferred Communication Mode : Verbal Communication Barrier : None Tree Trimming Line Technician Needed : No Ligia Walter RN - [...] Scale Risk Level : 0-24 Low Risk [place] Fall Interventions : Adequate lighting, Non-slip footwear, Wheels locked Ligia Walter RN - 01/06/2021 12:16 EST Valuables and Belongings Valuables and Belongings : Clothing, Personal items Clothing : Common streetwear Clothing Disposition : Bedside Personal Items : Cell phone, Purse Personal Items Disposition : Bedside Ligia Walter RN - 01/06/2021 12:16 EST Electronically signed by [facility] Conversion Business Initiatives Manager Cerner at 02/18/2023 4:52 PM CDT documented in this encounter Plan of Treatment Not on file documented as of this encounter Visit Diagnoses Not on filedocumented in this encounter
--- OUTSIDE RECORDS SUMMARY | 2025-10-26 10:43 | XMS_ITS | Encounter Summary ---
Author Organization [employer] ([place], [place], [place], [place], [place]) Address [address] [place] [address] Care Team Providers Care Test And Turn Up Technician Name Role Phone Unavailable Primary Care Provider Unavailabl e Encounter Details Date Type Department Care Team (Late st Contact Info) Description 01/06/2021 Transcribed Document [place] [facility] [place] [address] ProviderDarrell MD [address] [place] [address] [id number] Social History Tobacco Use Types Packs/Day Years Used Date Smoking Tobacco: Never Assessed Comments Unknown Sex and Gender Information Value Date Recorded Sex Assigned at Not on file Legal Sex Female 6:16 PM CDT Gender Identity Not on file Sexual Orientation Not on file documented as of this encounter Miscellaneous Notes * Cerner Conversion Note - Darrell ProviderMD - 01/06/2021 12:45 PM TECHNICAL STAFF ENGINEER [facility] Endo IntraOp Summary Primary Physician: SEA OLSON MD Finalized Date/Time: 01/06/21 13:06:19 Pt. Name: FERMIN BARR/Sex: 1965 Female Med Rec #: [id number] Physician: SEA OLSON MD Financial #: [id number] Pt. Type: O Room/Bed: END/ Admit/Disch: 01/06/21 11:16:00 - Institution: [facility] Endo - Case Attendance Entry 1 Entry 2 Entry 3 Case Attendee SEA OLSON MD GHANSAH, NANA DADZIE, Mcclintock, Molly, Rn -ANS Role Performed Surgeon/Proceduralist, Anesthesiologist of Upholsterer Outside, First First Record Time In 01/06/21 12:38:00 [...] BURGESS, MONICA ZEPEDA, LATISHA SHELLEY Role Performed Upholsterer Outside, Second Scrub, First FITTER WELDER/Nurse Umbrella Mender Time In 01/06/21 12:38:00 01/06/21 12:38:00 01/06/21 12:38:00 Time Out 01/06/21 13:08:00 01/06/21 13:08:00 01/06/21 13:08:00 Procedure Gastric Biopsy, Gastric Biopsy, Gastric Biopsy, Esophageal Biopsy, Esophageal Biopsy, Esophageal Biopsy, Esophageal Dilatation Esophageal Dilatation Esophageal Dilatation Other Attendee Superficial Wound Closed By: Last Modified By: Moira Jensen Rn Mcclintock, Molly, Moira Sanchez, Lou 01/06/21 13:05:47 01/06/21 13:05:47 01/06/21 13:05:47 [facility] Endo - Case Attendance Audit 01/06/21 13:05:47 Bisque Finisher: [id number] Modifier: [id number] 1 <+> Time Out 1 <*> Procedure [...] Biopsy, Esophageal Biopsy, Esophageal Dilatation 01/06/21 12:48:41 Bisque Finisher: [id number] Modifier: [id number] 1 <*> Procedure Colonoscopy, Esophagogastroduodenoscopy, Gastric Biopsy, Esophageal Biopsy 2 <*> Procedure Gastric Biopsy, Esophageal Biopsy 3 <*> Procedure Gastric Biopsy, Esophageal Biopsy 4 <*> Procedure Gastric Biopsy, Esophageal Biopsy 5 <*> Procedure Gastric Biopsy, Esophageal Biopsy 6 <*> Procedure Gastric Biopsy, Esophageal Biopsy 01/06/21 12:45:26 Bisque Finisher: [id number] Modifier: [id number] 1 <*> Procedure Colonoscopy, Esophagogastroduodenoscopy, Gastric Biopsy 2 <*> Procedure Gastric Biopsy 3 <*> Procedure Gastric Biopsy 4 <*> Procedure Gastric Biopsy 5 <*> Procedure Gastric Biopsy 6 <*> Procedure Gastric Biopsy 01/06/21 12:44:50 Bisque Finisher: [id number] Modifier: [id number] 1 <*> Procedure Colonoscopy, Esophagogastroduodenoscopy <+> 2 Procedure <+> 3 Procedure <+> 4 Procedure <+> 5 Procedure <+> 6 Procedure 01/06/21 12:41:08 Bisque Finisher: [id number] Modifier: [id number] <*> Case Attendee LANA HERRMANN MD-ANS 01/06/21 12:40:29 Bisque Finisher: [id number] Modifier: [id number] 1 <+> Time In 1 <*> Procedure Colonoscopy, Esophagogastroduodenoscopy <+> 2 Time In <+> 3 Time In <+> 4 Time In <+> 5 Time In <+> 6 Time In 01/06/21 12:31:04 Bisque Finisher: [id number] Modifier: [id number] <+> 2 Case Attendee <+> 2 Role Performed <+> 3 Case Attendee <+> 3 Role Performed <+> 4 Case Attendee <+> 4 Role Performed <+> 5 Case Attendee <+> 5 Role Performed <+> 6 Case Attendee <+> 6 Role Performed [facility] Endo - Case times Entry 1 Patient In Room Time 01/06/21 12:38:00 Out Room Time 01/06/21 13:08:00 Anesthesia Start Time 01/06/21 12:38:00 Stop Time 01/06/21 13:08:00 Surgery / Procedure Times Start Time 01/06/21 12:45:00 Stop Time 01/06/21 13:05:00 Last Modified By: Moira Jensen Rn 01/06/21 13:05:33 [facility] Endo - Case times Audit 01/06/21 13:05:33 Bisque Finisher: [id number] Modifier: [id number] <+> 1 Out Room Time <+> 1 Stop Time <+> 1 Stop Time 01/06/21 12:47:15 Bisque Finisher: [id number] Modifier: [id number] <+> 1 Start Time [facility] Endo - Cultures and Spec Summary Entry 1 Cultrures and Specimens Specimen Ordered: Yes Test(s) Routine/Path-Lab Requested/Final Disposition Last Modified By: Moira Jensen Rn 01/06/21 12:47:42 [facility] Endo - Delays Entry 1 Delay Reason Other, No Delay Duration 0 Minute(s) Last Modified By: Moira Jensen Rn 01/06/21 12:31:14 [facility] Endo - Departure from OR Entry 1 Integumentary Assessment Integumentary WDL Assessment WDL Transfer/Handoff Transfer to PACU Phase I Post-op Transport Stretcher/Gurney Via Patient Transport Moira Jensen Rn Accompanied by Last Modified By: Moira Jensen Rn 01/06/21 12:40:40 [facility] Endo - Departure from OR Audit 01/06/21 12:40:40 Bisque Finisher: [id number] Modifier: [id number] 1 <*> Patient Transport Accompanied by Moira Jensen, Rn 1 <-> Handoff Method Bedside/Face to face [facility] Endo - Endoscopy Details Entry 1 Abdomen Procedure Soft, Non-Tender Assessment Procedure Abdomen 01/06/21 12:38:00 Assessment D/T Radio Frequency Ablation Abdominal Pressure Last Modified By: Moira Jensen Rn 01/06/21 12:38:50 [facility] Endo - Fire Risk Assessment Entry 1 Fire Info Surgical Site or 1- Yes Incision Above the Xyphoid Open O2 Source 1- Yes (Mask or Cannula) Available Ignition 1- Yes (ESU, Laser, Light Source) Fire Risk 3 Assessment Score Fire Score Fire Risk Yes Assessment Complete Fire Risk Moira Jensen, Hair Spring Cutter Verified By Fire Risk 01/06/21 12:39:00 Assessment Verified Date/Time Fire Risk High Risk Protocol Yes Implemented Standard Fire Yes Safety Precautions Followed Last Modified By: Moira Jensen Rn 01/06/21 12:39:28 [facility] Endo - Fire Risk Assessment Audit 01/06/21 12:39:28 Bisque Finisher: [id number] Modifier: [id number] <+> 1 Fire Risk Assessment Complete <+> 1 Fire Risk Assessment Verified Date/Time [facility] Endo - General Case Vocational Aide 1 Case Information OR Endo 03 [facility] Case Level 1 Room Verified Yes Wound Class III - Contaminated Specialty SN Gastroenterology Anesthesia Type General ASA Class 3 Diagnosis Preop Diagnosis dysphagia/screening Postop Same As Preop Yes Postop Diagnosis dysphagia/screening Last Modified By: Moira Jensen Rn 01/06/21 12:39:17 [facility] Endo - General Case Data Audit 01/06/21 12:39:17 Bisque Finisher: [id number] Modifier: [id number] <+> 1 ASA Class <+> 1 Postop Same As Preop <+> 1 Preop Diagnosis <+> 1 Postop Diagnosis [facility] Endo - Intraoperative Assessment Entry 1 Valid History / Yes Physical in Chart Preoperative Yes Checklist Reviewed/Evaluated Patient is Latex No Sensitive Level of WDL Consciousness (WDL = Alert, Oriented to Person, Place, and Time) Last Modified By: Moira Jensen Rn 01/06/21 12:31:39 [facility] Endo - Intraoperative Equipment Entry 1 Equipment Intraop Monitoring Electrocardiogram Three lead placement (ECG) Electrode Placement Blood Pressure Arm, left upper Location Pulse Oximeter Hand, right Probe Site Antiembolic Devices Scopes Flexible Endoscopes Gastroscope Used Scope Serial N, K Number/Identificatio n Number Photo/Video Documentation Photo Yes Video No Last Modified By: Moira Jensen Rn 01/06/21 12:41:53 [facility] Endo - Intraoperative Equipment Audit 01/06/21 12:41:53 Bisque Finisher: [id number] Modifier: [id number] 1 <*> Photo Yes 1 <*> Video No 1 <*> Electrocardiogram (ECG) Electrode Three lead placement Placement 1 <*> Blood Pressure Location Arm, left upper 1 <*> Pulse Oximeter Probe Site Hand, right 1 <*> Flexible Endoscopes Used Gastroscope 1 <+> Scope Serial Number/Identification Number [facility] Endo - Patient Positioning Entry [...] Modified By: Moira Jensen Rn 01/06/21 12:48:41 [facility] Endo - Patient Positioning Audit 01/06/21 12:48:41 Bisque Finisher: [id number] Modifier: [id number] 1 <*> Procedure Esophagogastroduodenoscopy, Gastric Biopsy, Esophageal Biopsy 01/06/21 12:45:27 Bisque Finisher: [id number] Modifier: [id number] 1 <*> Procedure Esophagogastroduodenoscopy, Gastric Biopsy 01/06/21 12:44:50 Bisque Finisher: [id number] Modifier: [id number] 1 <*> Procedure Esophagogastroduodenoscopy [facility] Endo - Sign In Entry 1 Patient, Site, Yes Procedure Identified Surgical Consent Yes Confirmed Surgical Site N/A Marked by person performing procedure Airway Hypothermia Risk No Warming Measures No Taken Last Modified By: Moira Jensen Rn 01/06/21 12:31:56 [facility] Endo - Sign Out Entry [...] Modified By: Moira Jensen Rn 01/06/21 13:05:40 [facility] Endo - Surgical Procedures Entry [...] Moira Sanchez, Lou 01/06/21 13:05:42 01/06/21 13:05:42 [facility] Endo - Surgical Procedures Audit 01/06/21 13:05:42 Bisque Finisher: [id number] Modifier: [id number] <+> 3 Stop <+> 4 Stop <+> 5 Stop 01/06/21 13:05:13 Bisque Finisher: [id number] Modifier: [id number] 1 <*> Procedure Colonoscopy 1 <*> Start 01/06/21 12:45:00 1 <+> Stop 1 <+> Physician States Cecum Reached 2 <*> Procedure Esophagogastroduodenoscopy 2 <+> Stop 01/06/21 12:48:40 Bisque Finisher: [id number] Modifier: [id number] <+> 5 Procedure <+> 5 Primary Procedure <+> 5 Primary Surgeon <+> 5 Specialty <+> 5 Start <+> 5 Wound Class <+> 5 Anesthesia Type 01/06/21 12:47:35 Bisque Finisher: [id number] Modifier: [id number] <+> 1 Start <+> 2 Start <+> 3 Start <+> 4 Start 01/06/21 12:45:25 Bisque Finisher: [id number] Modifier: [id number] <+> 4 Procedure <+> 4 Primary Procedure <+> 4 Primary Surgeon <+> 4 Specialty <+> 4 Wound Class <+> 4 Anesthesia Type 01/06/21 12:44:49 Bisque Finisher: [id number] Modifier: [id number] <+> 3 Procedure <+> 3 Primary Procedure <+> 3 Primary Surgeon <+> 3 Specialty <+> 3 Wound Class <+> 3 Anesthesia Type <+> 3 Additional Procedure Description [facility] Endo - Time Out Entry [...] Modified By: Moira Jensen Rn 01/06/21 12:48:42 [facility] Endo - Time Out Audit 01/06/21 12:48:42 Bisque Finisher: [id number] Modifier: [id number] 1 <*> Procedure to be Performed Colonoscopy, Esophagogastroduodenoscopy, Gastric Biopsy, Esophageal Biopsy 01/06/21 12:45:27 Bisque Finisher: [id number] Modifier: [id number] 1 <*> Procedure to be Performed Colonoscopy, Esophagogastroduodenoscopy, Gastric Biopsy 01/06/21 12:44:51 Bisque Finisher: [id number] Modifier: [id number] 1 <*> Procedure to be Performed Colonoscopy, Esophagogastroduodenoscopy Case Comments <None> Finalized By: Moira Jensen, Rn Document Signatures Signed By: Moira Jensen Rn 01/06/21 13:06 Electronically signed by [facility] Conversion Engineer Second Assistant Cerner at 02/18/2023 5:01 PM CDT documented in this encounter Plan of Treatment Not on file documented as of this encounter Visit Diagnoses Not on filedocumented in this encounter
--- OUTSIDE RECORDS SUMMARY | 2025-10-26 10:43 | XMS_ITS | Encounter Summary ---
Author Organization [employer] ([place], [place], [place], [place], [place]) Address [address] [place] [address] Care Team Providers Care Department Store Manager Name Role Phone Unavailable Primary Care Provider Unavailabl e Encounter Details Date Type Department Care Team (Late st Contact Info) Description 01/06/2021 Transcribed Document [facility] [address] ProviderDarrell MD [address] [place] [id number] Social History Tobacco Use Types Packs/Day Years Used Date Smoking Tobacco: Never Assessed Comments Unknown Sex and Gender Information Value Date Recorded Sex Assigned at Not on file Legal Sex Female 6:16 PM CDT Gender Identity Not on file Sexual Orientation Not on file documented as of this encounter Miscellaneous Notes * Cerner Conversion Note - Darrell ProviderMD - 01/06/2021 1:08 PM DRAWING IN MACHINE TENDER [facility] [place] [id number] FERMIN BARR :1965 Visit Time:01/06/2021 What to [...] OLSON When Only if needed Where: [address] [facility] [address] [place] [id number]- [facility] (1) Medications What How Much When Instructions [...] times a day. General instructions ??? Take dydr-wwd-hwyxbxr and prescription medicines only as told by [...] 07/30/2009 Document Revised: 10/29/2019 Document Reviewed: 03/12/2019 [employer] Patient Education ?? 2020 [employer] Instructions for after EGD with Dilation [...] activities are safe for you. ??? Take uykd-nbg-bptlqbc and prescription medicines only as told by [...] 01/27/2002 Document Revised: 10/24/2018 Document Reviewed: 06/06/2018 [employer] Patient Education ?? 2020 [employer] Emergency Awareness and Preventative Care STROKE [...] Assistance with quitting is available by contacting 7-925-KOKE-NOW. This is a free resource providing counseling, [...] was given the opportunity to ask questions. Patient/Senior Solutions Architect Name: Patient/Senior Solutions Architect Signature: Relationship to Patient: Clinician/Hospital Senior Solutions Architect Signature: Date: Electronically signed by [employer], [facility] Conversion Pot Washer Robby at 02/18/2023 5:06 PM CDT documented in this encounter Plan of Treatment Not on file documented as of this encounter Visit Diagnoses Not on filedocumented in this encounter
--- OUTSIDE RECORDS SUMMARY | 2025-10-26 10:43 | XMS_ITS | Encounter Summary ---
Author Organization [employer] ([place], [place], [place], [place], [place]) Address [address] [place] [address] Care Team Providers Care Bisque Finisher Name Role Phone Unavailable Primary Care Provider Unavailabl e Encounter Details Date Type Department Care Team (Late st Contact Info) Description 10/17/2020 Transcribed Document [facility] [place] [address] ProviderDarrell MD [address] [place] [id number] Social History Tobacco Use Types Packs/Day Years Used Date Smoking Tobacco: Never Assessed Comments Unknown Sex and Gender Information Value Date Recorded Sex Assigned at Not on file Legal Sex Female 6:16 PM CDT Gender Identity Not on file Sexual Orientation Not on file documented as of this encounter Miscellaneous Notes * Cerner Conversion Note - Historical ProviderMD - 10/17/2020 4:38 PM LOCK CORNER MACHINE OPERATOR ED Triage Entered On: 10/17/2020 17:34 EST Performed On: 10/17/2020 17:31 EST by Calli Cruz RN ED Triage Across the Room Chief Complaint : Hospitalized at [place] last week c sepsis/PNA. Saw Gillian Alicia @ Dr. Cheek's office 10/13, had elevated WBCs. Temp today 98.6 - states baseline is 97.1 and she was advised to come to ED. Triage Date/Time : 10/17/2020 17:31 EST Calli Cruz RN - 10/17/2020 17:31 EST DCP GENERIC CODE Tracking Acuity : 3 - Urgent Tracking Group : [facility] ED Calli Cruz RN - 10/17/2020 17:31 [...] 10/17/2020 17:34:28 EST) Problems(Active) Anxiety (SNOMED CT :7748767350 ) Name of Problem: Anxiety ; Recorder: Tracey Mathews RN; Confirmation: Confirmed ; Classification: Medical ; Code: [id number] ; Contributor System: PowerChart ; Last Updated: 11/06/2016 11:42 EST ; Life Cycle Date: 11/06/2016 ; Life Cycle Status: Active ; Vocabulary: SNOMED CT Arthritis (SNOMED CT :0624680 ) Name of Problem: Arthritis ; Recorder: JOSÉ MIGUEL BRADSHAW RN; Confirmation: Confirmed ; Classification: Medical ; Code: 6024740 ; Contributor System: PowerChart ; Last Updated: 09/23/2018 15:39 EST ; Life Cycle Date: 06/18/2018 ; Life Cycle Status: Active ; Vocabulary: SNOMED CT Asthma (SNOMED CT :413762925 ) Name of Problem: Asthma ; Recorder: Tracey Mathews RN; Confirmation: Confirmed ; Classification: Medical ; Code: 491472066 ; Contributor System: PowerChart ; Last Updated: 11/06/2016 11:28 EST ; Life Cycle Date: 11/06/2016 ; Life Cycle Status: Active ; Vocabulary: SNOMED CT Asthma (SNOMED CT :067093232 ) Name of Problem: Asthma ; Recorder: JOSÉ MIGUEL BRADSHAW RN; Confirmation: Confirmed ; Classification: Medical ; Code: 536309752 ; Contributor System: PowerChart ; Last Updated: 06/18/2018 15:03 EDT ; Life Cycle Date: 06/18/2018 ; Life Cycle Status: Active ; Vocabulary: SNOMED CT Cardiomyopathy (SNOMED CT :045810202 ) Name of Problem: Cardiomyopathy ; Recorder: Malgorzata Pemberton RN; Confirmation: Confirmed ; Classification: Medical ; Code: 851701186 ; Contributor System: PowerChart ; Last Updated: 11/07/2016 6:38 EST ; Life Cycle Date: 11/07/2016 ; Life Cycle Status: Active ; Vocabulary: SNOMED CT DDD (degenerative disc disease), cervical (SNOMED CT :388061139 ) Name of Problem: DDD (degenerative disc disease), cervical ; Recorder: Tracey Mathews RN; Confirmation: Confirmed ; Classification: Medical ; Code: 006313938 ; Contributor System: RxEyeChart ; Last Updated: 11/06/2016 11:41 EST ; Life Cycle Date: 11/06/2016 ; Life Cycle Status: Active ; Vocabulary: SNOMED CT Endometriosis (SNOMED CT :8479743031 ) Name of Problem: Endometriosis ; Recorder: Tracey Mathews RN; Confirmation: Confirmed ; Classification: Medical ; Code: 9610854308 ; Contributor System: PowerChart ; Last Updated: 11/06/2016 11:30 EST ; Life Cycle Date: 11/06/2016 ; Life Cycle Status: Active ; Vocabulary: SNOMED CT Fibroids (SNOMED CT :343315133 ) Name of Problem: Fibroids ; Recorder: Tracey Matehws RN; Confirmation: Confirmed ; Classification: Medical ; Code: 263240972 ; Contributor System: PowerChart ; Last Updated: 11/06/2016 11:30 EST ; Life Cycle Date: 11/06/2016 ; Life Cycle Status: Active ; Vocabulary: SNOMED CT GERD - Gastro-esophageal reflux disease (SNOMED CT :8542858538 ) Name of Problem: GERD - Gastro-esophageal reflux disease ; Recorder: Tracey Mathews RN; Confirmation: Confirmed ; Classification: Medical ; Code: 9137847778 ; Contributor System: PowerChart ; Last Updated: 11/06/2016 11:29 EST ; Life Cycle Date: 11/06/2016 ; Life Cycle Status: Active ; Vocabulary: SNOMED CT H/O: depression (SNOMED CT :611855325 ) Name of Problem: H/O: depression ; Recorder: JOSÉ MIGUEL BRADSHAW RN; Confirmation: Confirmed ; Classification: Medical ; Code: 430389437 ; Contributor System: PowerChart ; Last Updated: 06/18/2018 15:07 EDT ; Life Cycle Date: 06/18/2018 ; Life Cycle Status: Active ; Vocabulary: SNOMED CT History of obstructive sleep apnea (IMO :59788350 ) Name of Problem: History of obstructive sleep apnea ; Recorder: SYSTEM, SYSTEM; Confirmation: Confirmed ; Classification: Medical ; Code: 25305426 ; Last Updated: 06/18/2018 15:16 EDT ; Life Cycle Date: 06/18/2018 ; Life Cycle Status: Active ; Vocabulary: IMO Left carpal tunnel syndrome (SNOMED CT :4407146347 ) Name of Problem: Left carpal tunnel syndrome ; Recorder: Tracey Mathews RN; Confirmation: Confirmed ; Classification: Medical ; Code: 0686712105 ; Contributor System: PowerChart ; Last Updated: 11/06/2016 11:43 EST ; Life Cycle Date: 11/06/2016 ; Life Cycle Status: Active ; Vocabulary: SNOMED CT Migraine (SNOMED CT :42674360 ) Name of Problem: Migraine ; Recorder: Tracey Mathews RN; Confirmation: Confirmed ; Classification: Medical ; Code: 04880140 ; Contributor System: PowerChart ; Last Updated: 11/06/2016 11:30 EST ; Life Cycle Date: 11/06/2016 ; Life Cycle Status: Active ; Vocabulary: SNOMED CT Neck pain (SNOMED CT :4329075047 ) Name of Problem: Neck pain ; Recorder: Tracey Mathews RN; Confirmation: Confirmed ; Classification: Medical ; Code: 3911026043 ; Contributor System: PowerChart ; Last Updated: 11/06/2016 11:41 EST ; Life Cycle Date: 11/06/2016 ; Life Cycle Status: Active ; Vocabulary: SNOMED CT PCO - Polycystic ovaries (SNOMED CT :637192082 ) Name of Problem: PCO - Polycystic ovaries ; Recorder: Tracey Mathews RN; Confirmation: Confirmed ; Classification: Medical ; Code: 923984161 ; Contributor System: PowerChart ; Last Updated: 11/06/2016 11:30 EST ; Life Cycle Date: 11/06/2016 ; Life Cycle Status: Active ; Vocabulary: SNOMED CT Pneumonia (SNOMED CT :628196488 ) Name of Problem: Pneumonia ; Recorder: Tracey Mathews RN; Confirmation: Confirmed ; Classification: Medical ; Code: 920819119 ; Contributor System: PowerChart ; Last Updated: 11/06/2016 11:28 EST ; Life Cycle Date: 11/06/2016 ; Life Cycle Status: Active ; Vocabulary: SNOMED CT Sleep apnea (SNOMED CT :364555087 ) Name of Problem: Sleep apnea ; Recorder: JOSÉ MIGUEL BRADSHAW RN; Confirmation: Confirmed ; Classification: Medical ; Code: 976934124 ; Contributor System: PowerChart ; Last Updated: 06/18/2018 15:03 EDT ; Life Cycle Date: 06/18/2018 ; Life Cycle Status: Active ; Vocabulary: SNOMED CT Spinal stenosis of cervical region (SNOMED CT :297472669 ) Name of Problem: Spinal stenosis of cervical region ; Recorder: Tracey Mathews RN; Confirmation: Confirmed ; Classification: Medical ; Code: 636362522 ; Contributor System: PowerChart ; Last Updated: 11/06/2016 11:43 EST ; Life Cycle Date: 11/06/2016 ; Life Cycle Status: Active ; Vocabulary: SNOMED CT Wears glasses (SNOMED CT :949727589 ) Name of Problem: Wears glasses ; Recorder: JOSÉ MIGUEL BRADSHAW RN; Confirmation: Confirmed ; Classification: Medical ; Code: 376060208 ; Contributor System: [employer] ; Last Updated: 06/18/2018 15:01 EDT ; Life Cycle Date: 06/18/2018 ; Life Cycle Status: Active ; Vocabulary: SNOMED CT Diagnoses(Active) Abnormal laboratory findings Date: 10/17/2020 ; Diagnosis Type: Reason For Visit ; Confirmation: Complaint of ; Clinical Dx: Abnormal laboratory findings ; Classification: Medical ; Clinical Service: Non-Specified ; Code: PNED ; Probability: 0 ; Diagnosis Code: [id number] Shortness of breath Date: 10/17/2020 ; Diagnosis Type: Reason For Visit ; Confirmation: Complaint of ; Clinical Dx: Shortness of breath ; Classification: Medical ; Clinical Service: Non-Specified ; Code: PNED ; Probability: 0 ; Diagnosis Code: [id number] ED Height and Weight Height Source : Stated Height Entry Format : [place] Height, Feet : 5 ft(Converted to: 152 cm, 60 Inch) Height, Inches : 4 Inch(Converted to: 0 ft 4 Inch, 10.16 cm) Clinical Height : 162.56 cm Weight Source, ED : Critical estimated dosing weight Weight Entry Format : [place] Weight, Pounds : 250 lb Clinical Dosing Weight : 113.64 kg Body Surface Area (BSA) : 2.15 m2 Body Mass Index : 43 kg/m2 (>HHI) [place] Body Weight (IBW) : 54.3 kg Calli Cruz RN - 10/17/2020 17:31 EST documented in this encounter Plan of Treatment Not on file documented as of this encounter Visit Diagnoses Not on filedocumented in this encounter
--- OUTSIDE RECORDS SUMMARY | 2025-10-26 10:43 | XMS_ITS | Encounter Summary ---
Author Organization [employer] ([place], [place], [place], [place], [place]) Address [address] [place] [address] Care Team Providers Care Alumnae Secretary Name Role Phone Unavailable Primary Care Provider Unavailabl e Encounter Details Date Type Department Care Team (Late st Contact Info) Description 11/24/2020 Transcribed Document [facility] [place] Family [place] [facility] [place] [address] ProviderDarrell MD [address] [place] [id number] Social History Tobacco Use Types Packs/Day Years Used Date Smoking Tobacco: Never Assessed Comments Unknown Sex and Gender Information Value Date Recorded Sex Assigned at Not on file Legal Sex Female 6:16 PM CDT Gender Identity Not on file Sexual Orientation Not on file documented as of this encounter Miscellaneous Notes * Cerner Conversion Note - Historical ProviderMD - 11/24/2020 3:48 PM REEXAMINER DATE OF ADMISSION: 11/24/2020 HISTORY OF PRESENT [...] visit and the patient has been afebrile. /[id number] Pepe Krishna MD, BLAKE Pain Certified KR/AQ / KR / MODL CC: REYES BRONSON MD Electronically signed by Humera, [facility] Conversion Shingler Cerner at 02/18/2023 4:50 PM CDT documented in this encounter Plan of Treatment Not on file documented as of this encounter Visit Diagnoses Not on filedocumented in this encounter
--- OUTSIDE RECORDS SUMMARY | 2025-10-26 10:43 | XMS_ITS | Encounter Summary ---
Author Organization [employer] ([place], [place], [place], [place], [place]) Address [address] [place] [address] Care Team Providers Care Relief Salesperson Name Role Phone Unavailable Primary Care Provider Unavailabl e Encounter Details Date Type Department Care Team (Late st Contact Info) Description 01/06/2021 Transcribed Document [facility] [place] Family Medicine [address] [place] [address] ProviderDarrell MD [address] [place], [place] [phone] Social History Tobacco Use Types Packs/Day Years Used Date Smoking Tobacco: Never Assessed Comments Unknown Sex and Gender Information Value Date Recorded Sex Assigned at Not on file Legal Sex Female 6:16 PM CDT Gender Identity Not on file Sexual Orientation Not on file documented as of this encounter Miscellaneous Notes * Cerner Conversion Note - Darrell ProviderMD - 01/06/2021 12:30 PM GLACIOLOGIST [facility] [employer] PreOp Summary Primary Physician: SEA OLSON MD Finalized Date/Time: 01/06/21 12:22:57 Pt. Name: FERMIN BARR/Sex: 1965 Female Med Rec #: [id number] Physician: SEA OLSON MD Financial #: [id number] Pt. Type: O Room/Bed: END/ Admit/Disch: 01/06/21 11:16:00 - Institution: [facility] [employer] PreOp Case Times Entry 1 In Preop 01/06/21 12:05:00 Ready for Holding n/a Room Patient Ready for n/a Surgery Patient Out of Preop 01/06/21 12:22:00 Patient Out of n/a Holding Room Last Modified By: Ligia Walter RN 01/06/21 12:22:55 Finalized By: Ligia Walter, RN Document Signatures Signed By: Ligia Walter RN 01/06/21 12:22 Electronically signed by Humera [facility] Conversion Grain Blender Cerner at 02/18/2023 4:51 PM CDT documented in this encounter Plan of Treatment Not on file documented as of this encounter Visit Diagnoses Not on filedocumented in this encounter
--- OUTSIDE RECORDS SUMMARY | 2025-10-26 10:43 | XMS_ITS | Encounter Summary ---
Author Organization [employer] ([place], [place], [place], [place], [place]) Address [address] [place] [address] Care Team Providers Care Managed Security Sales Consultant Name Role Phone Unavailable Primary Care Provider Unavailabl e Encounter Details Date Type Department Care Team (Late st Contact Info) Description 01/06/2021 Transcribed Document [facility] [place] Family Medicine [facility] [place] [address] Darrell Flores MD [address] [place] [address] [id number] Social History Tobacco Use Types Packs/Day Years Used Date Smoking Tobacco: Never Assessed Comments Unknown Sex and Gender Information Value Date Recorded Sex Assigned at Not on file Legal Sex Female 6:16 PM CDT Gender Identity Not on file Sexual Orientation Not on file documented as of this encounter Miscellaneous Notes * Cerner Conversion Note - Darrell Flores MD - 01/06/2021 1:10 PM NAVAL GUNFIRE SPOTTER Patient: FERMIN BARR Age: 55 Years Sex: [...]
--- OUTSIDE RECORDS SUMMARY | 2025-10-26 10:43 | XMS_ITS | Encounter Summary ---
Author Organization [employer] ([place], [place], [place], [place], [place]) Address [address] [place] [address] Care Team Providers Care Indoor Landscape Architect Name Role Phone Unavailable Primary Care Provider Unavailabl e Encounter Details Date Type Department Care Team (Late st Contact Info) Description 01/04/2021 Transcribed Document [facility] [place] Family Medicine [facility] [place] [address] ProviderDarrell MD [address] [place] [address] [phone] Social History Tobacco Use Types Packs/Day Years Used Date Smoking Tobacco: Never Assessed Comments Unknown Sex and Gender Information Value Date Recorded Sex Assigned at Not on file Legal Sex Female 6:16 PM CDT Gender Identity Not on file Sexual Orientation Not on file documented as of this encounter Miscellaneous Notes * Cerner Conversion Note - Darrell ProviderMD - 01/04/2021 2:39 PM NETWORK FIELD ENGINEER DATE OF SERVICE: 12/21/2020 The patient's height [...] for oxygen therapy. Clinical correlation is suggested. /[id number] MD XIAO Roberson/MIRIAN / XIAO / MODL /[id number] Electronically signed by [facility], [facility] Conversion Shader And Toner Cerner at 02/18/2023 5:14 PM CDT documented in this encounter Plan of Treatment Not on file documented as of this encounter Visit Diagnoses Not on filedocumented in this encounter
--- OUTSIDE RECORDS SUMMARY | 2025-10-26 10:43 | XMS_ITS ---
Laboratory report Created on: October 06, 2025 FERMIN DEVRIES : 1965 Sex: Female Author Name LAZARA Celsion[facility] Unknown PROBLEMS Problems List Code Description D84.9 RESULTS Laboratory Orders Date Order Code Test 2025-09-23 [id number] TETANUS/DIPHTHER IA AB 2025-09-23 [id number] PNEUMOCOCCAL AB (23 SEROTYPE) 2025-09-23 [id number] ISOHEMAGGLUTININ TITER 2025-09-23 449309 IMMUNOGLOBULINS A/G/M, QN, SER 2025-09-23 [id number] COMPLEMENT, TOTA L (CH50) Laboratory Results Date LOINC Test Value Unit Reference Range Interpre tation 2025-09-23 85233-7 TETANUS ANTITOXO ID IGG AB 1.31 IU/ML <0.10 2025-09-23 5116-9 DIPHTHERIA ANTIT OXOID AB .67 IU/ML <0.10 2025-09-23 33433-1 PNEUMO AB TYPE 1* .2 UG/ML >1.3 L 2025-09-23 01462-2 PNEUMO AB TYPE 3* >6.1 UG/ML >1.3 2025-09-23 23286-9 PNEUMO AB TYPE 4* .2 UG/ML >1.3 L 2025-09-23 16246-8 PNEUMO AB TYPE 8* <0.3 UG/ML >1.3 L 2025-09-23 87405-3 PNEUMO AB TYPE 9 (9N)* .3 UG/ML >1.3 L 2025-09-23 25067-4 PNEUMO AB TYPE 1 2 (12F)* .5 UG/ML >1.3 L 2025-09-23 91415-0 PNEUMO AB TYPE 14* .1 UG/ML >1.3 L 2025-09-23 34361-3 PNEUMO AB TYPE 1 7 (17F)* <0.1 UG/ML >1.3 L 2025-09-23 56637-7 PNEUMO AB TYPE 1 9 (19F)* .6 UG/ML >1.3 L 2025-09-23 45745-7 PNEUMO AB TYPE 2* <0.2 UG/ML >1.3 L 2025-09-23 53442-8 PNEUMO AB TYPE 20* 1 UG/ML >1.3 L 2025-09-23 31024-0 PNEUMO AB TYPE 2 2 (22F)* .7 UG/ML >1.3 L 2025-09-23 89204-1 PNEUMO AB TYPE 2 3 (23F)* <0.1 UG/ML >1.3 L 2025-09-23 21159-7 PNEUMO AB TYPE 26 (6B)* 2.3 UG/ML >1.3 2025-09-23 39464-5 PNEUMO AB TYPE 3 4 (10A)* <0.1 UG/ML >1.3 L 2025-09-23 76157-9 PNEUMO AB TYPE 4 3 (11A)* 1 UG/ML >1.3 L 2025-09-23 30550-0 PNEUMO AB TYPE 5* .1 UG/ML >1.3 L 2025-09-23 28125-1 PNEUMO AB TYPE 51 (7F)* .7 UG/ML >1.3 L 2025-09-23 87850-7 PNEUMO AB TYPE 5 4 (15B)* <0.2 UG/ML >1.3 L 2025-09-23 45320-4 PNEUMO AB TYPE 5 6 (18C)* .6 UG/ML >1.3 L 2025-09-23 54652-2 PNEUMO AB TYPE 5 7 (19A)* 2.3 UG/ML >1.3 2025-09-23 44718-7 PNEUMO AB TYPE 68 (9V)* 2.6 UG/ML >1.3 2025-09-23 94478-5 PNEUMO AB TYPE 7 0 (33F)* 2 UG/ML >1.3 2025-09-23 48775-1 ANTIBODY SCREEN N 2025-09-23 883-9 BLOOD GROUPING A 2025-09-23 69434-9 A TITER NI 2025-09-23 84237-6 B TITER 1:16 2025-09-23 2465-3 IMMUNOGLOBULIN G , QN, SERUM 1089 MG/DL 586-1602 2025-09-23 8888-8 IMMUNOGLOBULIN A , QN, SERUM 404 MG/DL 87-352 H 2025-09-23 2472-9 IMMUNOGLOBULIN M , QN, SERUM 89 MG/DL 26-217 2025-09-23 2812-8 COMPLEMENT, TOTA L (CH50) >60 U/ML >41
--- OUTSIDE RECORDS SUMMARY | 2025-10-26 10:43 | XMS_ITS | Encounter Summary ---
Author Organization [employer] ([place], [place], [place], [place], [place]) Address [address] [place] [address] Care Team Providers Care Cell Stripper Final Name Role Phone Unavailable Primary Care Provider Unavailabl e Encounter Details Date Type Department Care Team (Late st Contact Info) Description 10/18/2020 Transcribed Document [facility] [place] Family Medicine [facility] [place] [address] ProviderDarrell MD [facility] [place] [address] Social History Tobacco Use Types Packs/Day Years Used Date Smoking Tobacco: Never Assessed Comments Unknown Sex and Gender Information Value Date Recorded Sex Assigned at Not on file Legal Sex Female 6:16 PM CDT Gender Identity Not on file Sexual Orientation Not on file documented as of this encounter Miscellaneous Notes * Cerner Conversion Note - Historical ProviderMD - 10/18/2020 9:38 AM FLIGHT CREW ORDNANCEMAN CR Chest 2 Vws Ordered: 10/17/2020 Auth (Verified) Reason for Exam: SOA 10/18/2020 08:53 10/18/2020 09:38 (QUANG OLIVA APRN) Reviewed by Provider, No further action required x1 documented in this encounter Plan of Treatment Not on file documented as of this encounter Visit Diagnoses Not on filedocumented in this encounter
--- OUTSIDE RECORDS SUMMARY | 2025-10-26 10:43 | XMS_ITS | Encounter Summary ---
Author Organization [employer] ([place], [place], [place], [place], [place]) Address [address] [place] [address] Care Team Providers Care Wire Spinner Name Role Phone Unavailable Primary Care Provider Unavailabl e Encounter Details Date Type Department Care Team (Late st Contact Info) Description 01/04/2021 Transcribed Document [facility] [place] Family Medicine [facility] [place] [address] ProviderDarrell MD [address] [place] [address] [phone] Social History Tobacco Use Types Packs/Day Years Used Date Smoking Tobacco: Never Assessed Comments Unknown Sex and Gender Information Value Date Recorded Sex Assigned at Not on file Legal Sex Female 6:16 PM CDT Gender Identity Not on file Sexual Orientation Not on file documented as of this encounter Miscellaneous Notes * Cerner Conversion Note - Darrell ProviderMD - 01/04/2021 2:42 PM INSULATION MECHANIC DATE OF SERVICE: 12/21/2020 Height 64 inches [...] was normal. 4. Clinical correlation is suggested. /[id number] Della Ortiz MD HE/AQ / XIAO / MODL /[id number] documented in this encounter Plan of Treatment Not on file documented as of this encounter Visit Diagnoses Not on filedocumented in this encounter
--- OUTSIDE RECORDS SUMMARY | 2025-10-26 10:43 | XMS_ITS | Clinical Summary ---
Author Organization [employer] ([place], [place], [place], [place], [place]) Address [address] [place] [address] Care Team Providers Care 5Th Grade Teacher Name Role Phone Unavailable Primary Care [...] HYDROcodone-elaine taminophen (NORCO) 5-325 mg per tablet [place] 5 mg-325 mg tablet Take 1 tablet [...] file Group ID:[id number] Type:Not on file Address: [facility] [id number] [place] [id number]
--- OUTSIDE RECORDS SUMMARY | 2025-10-26 10:43 | XMS_ITS | Clinical Summary ---
Author Organization [facility] Address [address] [id number] Care Team Providers Care Gamemaster Name Role Phone Janes Mason MD Primary Care Provider [phone] Allergies Active Allergy Reactions Criticality Noted Date Comments Acetaminophen GI Intolerance 12/01/2015 Acetaminophen-Codeine Unknown - Low Severity Codeine GI Intolerance 10/13/2021 Penicillins Other (See Comments) ,Unknown - Low Severity 11/13/2012 Medications pregabalin (Lyrica) 100 MG capsule Every 8 (Eight) Hours. Active HYDROcodone-acet aminophen ([place]) 5-325 MG per tablet [place] 5 mg-325 mg tablet Take 1 tablet [...] Payer (Ef fective 2019-Present) Name:Darshana Barr Member ID:[id number] Relation to Subscriber:Self Name:Darshana Barr Subscriber ID:[id number] Payer ID:[id number] Group ID:Not on file Type:Not on file Address: [address] Care Teams Gamemaster Relationship Specialty Start Date End Date Janes Mason MD [address] [place] [address] PCP - General Family Medicine 07/11/21
--- OUTSIDE RECORDS SUMMARY | 2025-10-26 10:43 | XMS_ITS | Clinical Summary ---
Author Organization [facility] Address [address] [place] [address] Care Team Providers Care Bioinformatics Scientist Name Role Phone Janes Mason MD Primary Care Provider [phone] Allergies Active Allergy Reactions Criticality Noted Date [...] to complete this topic Insurance Care Teams Bioinformatics Scientist Relationship Specialty Start Date End Date Janes Mason MD [address] [place] [address] PCP - General Family Medicine 11/13/12
--- OUTSIDE RECORDS SUMMARY | 2025-10-26 10:43 | XMS_ITS ---
Laboratory report Created on: October 05, 2025 FERMIN DEVRIES : 1965 Sex: Female Author Name REYES BRONSON Organization Unknown PROBLEMS Problems List Code Description E78.2 E55.9 RESULTS Laboratory Orders Date Order Code Test 2024-12-14 [id number] COMP. METABOLIC PANEL (14) 2024-12-14 418782 LIPID PANEL 2024-12-14 998029 VITAMIN D, 25-HY DROXY Laboratory Results Date LOINC Test Value Unit Reference Range Interpre tation 2024-12-14 2345-7 GLUCOSE 92 MG/DL 70-99 2024-12-14 3094-0 BUN 16 MG/DL 6-24 2024-12-14 2160-0 CREATININE .67 MG/DL 0.57-1.00 2024-12-14 17874-0 EGFR 102 ML/MIN/1.7 3 >59 2024-12-14 3097-3 BUN/CREATININE RATIO 24 9-23 H 2024-12-14 2951-2 SODIUM 141 MMOL/L 629-118 1897-02-10 2823-3 POTASSIUM 4.3 MMOL/L 3.5-5.2 2024-12-14 2075-0 CHLORIDE 105 MMOL/L 96-106 2024-12-14 2028-9 CARBON DIOXIDE, TOTAL 22 MMOL/L 20-29 2024-12-14 56899-0 CALCIUM 9.2 MG/DL 8.7-10.2 2024-12-14 2885-2 PROTEIN, TOTAL 6.6 G/DL 6.0-8.5 2024-12-14 1751-7 ALBUMIN 4.1 G/DL 3.8-4.9 2024-12-14 35825-5 GLOBULIN, TOTAL 2.5 G/DL 1.5-4.5 2024-12-14 1975-2 BILIRUBIN, TOTAL .5 MG/DL 0.0-1.2 2024-12-14 6768-6 ALKALINE PHOSPHATASE 80 IU/L 44-121 2024-12-14 1920-8 AST (SGOT) 19 IU/L 0-40 2024-12-14 1742-6 ALT (SGPT) 15 IU/L 0-32 2024-12-14 2093-3 CHOLESTEROL, TOTAL 278 MG/DL 100-199 H 2024-12-14 2571-8 TRIGLYCERIDES 171 MG/DL 0-149 H 2024-12-145-9 HDL CHOLESTEROL 47 MG/DL >39 2024-12-14 81907-2 VLDL CHOLESTEROL EN 32 MG/DL 5-40 2024-12-14 75598-3 LDL CHOL CALC ([facility]) 199 MG/DL 0-99 H 2024-12-14 8251-1 LDL CALC COMMENT: [facility] 2024-12-14 97003-7 VITAMIN D, 25-HYDROXY 46.5 NG/ML 30.0-100.0
--- OUTSIDE RECORDS SUMMARY | 2025-10-26 10:43 | XMS_ITS | Encounter Summary ---
Author Organization [employer] ([place], [place], [place], [place], [place]) Address [address] [place] [address] Care Team Providers Care Hydraulic Oil Tool Operator Name Role Phone Unavailable Primary Care Provider Unavailabl e Encounter Details Date Type Department Care Team (Late st Contact Info) Description 01/06/2021 Transcribed Document [facility] [place] Family Medicine [facility] [place] [address] ProviderDarrell MD [address] [place], [place] [phone] Social History Tobacco Use Types Packs/Day Years Used Date Smoking Tobacco: Never Assessed Comments Unknown Sex and Gender Information Value Date Recorded Sex Assigned at Not on file Legal Sex Female 6:16 PM CDT Gender Identity Not on file Sexual Orientation Not on file documented as of this encounter Miscellaneous Notes * Cerner Conversion Note - Darrell ProviderMD - 01/06/2021 1:08 PM CANVASS MANAGER Patient Education Materials Follows: Hemorrhoids Hemorrhoids are [...] times a day. General instructions ??? Take fkpz-cjq-tuobqwu and prescription medicines only as told by [...] 07/30/2009 Document Revised: 10/29/2019 Document Reviewed: 03/12/2019 [employer]ahab P. Tabatabai, Broker Patient Education ? 2020 [employer] Instructions for after EGD with Dilation [...] activities are safe for you. ??? Take jrth-wyr-oyownzv and prescription medicines only as told by [...] 01/27/2002 Document Revised: 10/24/2018 Document Reviewed: 06/06/2018 [employer] Patient Education ? 2020 [employer]. documented in this encounter Plan of Treatment Not on file documented as of this encounter Visit Diagnoses Not on filedocumented in this encounter
--- OUTSIDE RECORDS SUMMARY | 2025-10-26 10:43 | XMS_ITS | Encounter Summary ---
Author Organization [facility] Address [address] [address] Care Team Providers Care Construction Trades Contractor Name Role Phone Janes Mason MD Primary Care Provider [phone] Encounter Details Date Type Department Care Team ([facility] st Contact Info) Description 02/28/2023 [facility] Practice [address] [place] [address] [place] [address] Other headache syndrome (Primary Dx) Social History [...] Primary documented in this encounter Care Teams Construction Trades Contractor Relationship Specialty [place] [address] PCP - General 03/17/21 documented as of this encounter
--- OUTSIDE RECORDS SUMMARY | 2025-10-26 10:43 | XMS_ITS | Encounter Summary ---
Author Organization [employer] ([place], [place], [place], [place], [place]) Address [address] [place] [address] Care Team Providers Care Calender Wind Up Tender Name Role Phone Unavailable Primary Care Provider Unavailabl e Encounter Details Date Type Department Care Team (Late st Contact Info) Description 10/17/2020 Transcribed Document [facility] [place] Family Medicine [facility] [place] [address] ProviderDarrell MD [address] [place] [address] Social History Tobacco Use Types Packs/Day [...] Darrell Flores MD - 10/17/2020 11:07 PM HISTORICAL GUIDE [place] [address] MOMO FERMINMARY KATE SAUNDERS :1965 [...] with new or worsening symptoms. Where: [address] [facility] [address] [place] [address] [facility] (1) Follow Up with REYES BRONSON When Within 2 to 3 days Where: [address] [facility] [address] [facility], [address] [place] [id number] [facility] (1) Allergies Tylenol with Codeine (Vomiting, Nausea, Chest pain) penicillin (Unknown) Immunizations This Visit No Immunizations Found Medications What How Much When Instructions Next Dose acetaminophen-hydrocodone ([place] 7.5 mg-325 mg oral tablet) 1 Tablet(s) [...] range between ( 0.0 and 7.0 ) [place] #: 0.83 K/uL -- Normal range between ( 0.16 and 1.00 ) Eos #: 0.01 x10(3)/uL -- Normal range between ( 0.00 and 0.80 ) [place] %: 4.3 % -- Normal range between [...] these instructions at home: Medicines ??? Take sbqy-bdr-qduynqi and prescription medicines only as told by [...] and water are not available, use hand production ski repairer. Contact a health care provider if: ??? [...] 10/21/2006 Document Revised: 06/18/2019 Document Reviewed: 06/18/2019 [employer] Patient Education ?? 2020 [employer] Emergency Awareness and Preventative Care STROKE [...] Assistance with quitting is available by contacting 4-071-DUFINOW. This is a free resource providing counseling, support, and referral. Or you may contact your personal physician. [facility] Suicide Prevention Lifeline: The National Suicide Prevention [...] was given the opportunity to ask questions. Patient/Compotype Operator Name: Patient/Compotype Operator Signature: Relationship to Patient: Clinician/Hospital Compotype Operator Signature: Please Provide a Telephone Number Where You Can Be Reached: Is it Permissible To Leave a Message? Date: documented in this encounter Plan of Treatment Not on file documented as of this encounter Visit Diagnoses Not on filedocumented in this encounter
--- OUTSIDE RECORDS SUMMARY | 2025-10-26 10:43 | XMS_ITS ---
Laboratory report Created on: October 05, 2025 FERMIN DEVRIES : 1965 Sex: Female Author Organization Unknown PROBLEMS Problems List Code Description RESULTS Laboratory Orders Date Order Code Test 2024-01-08 [id number] METHYLMALONIC AC ID, SERUM 2024-01-08 579446 HOMOCYST(E)INE Laboratory Results Date LOINC Test Value Unit Reference Range Interpre tation 2024-01-08 47643-9 METHYLMALONIC AC ID, SERUM 86 NMOL/L 0-378 2024-01-08 55043-0 HOMOCYST(E)INE 10.4 UMOL/L 0.0-14.5
--- OUTSIDE RECORDS SUMMARY | 2025-10-26 10:43 | XMS_ITS | Clinical Summary ---
Author Organization [facility] Address [address] [place] [address] Phone Care Team Providers Care Cost Consultant Name Role Phone Janes Mason Primary Care Provider [phone] Allergies Active Allergy Reactions Criticality Noted Date [...] age to complete this topic Insurance [facility] Care Teams Cost Consultant Relationship Specialty Start Date End Date Janes Mason [address] [place] [phone] PCP - General Family Medicine 04/09/17
--- OUTSIDE RECORDS SUMMARY | 2025-10-26 10:43 | XMS_ITS ---
Laboratory report Created on: October 05, 2025 FERMIN DEVRIES : 1965 Sex: Female Author Organization Unknown PROBLEMS Problems List Code Description RESULTS Laboratory Orders Date Order Code Test 2024-02-18 [id number] OPIATES CONFIRMA TION, URINE Laboratory Results Date LOINC Test Value Unit Reference Range Interpre tation 2024-02-18 8251-1 FPRCF 2024-02-18 37021-5 OPIATES P NG/ML A 2024-02-18 3507-1 CODEINE NEG. 2024-02-18 3830-7 MORPHINE NEG. 2024-02-18 9834-3 HYDROMORPHONE P A 2024-02-18 42819-5 HYDROMORPHONE CO NF, MS, UR 1872 NG/ML 2024-02-18 03370-0 HYDROCODONE P A 2024-02-18 92814-5 HYDROCODONE CONF , MS, UR >3000 NG/ML
--- NOTE | 2025-10-26 10:46 | XR_ITS ---
FINAL REPORT CLINICAL HISTORY: cough/fever COMPARISON: 08/15/2025 FINDINGS: PA and lateral views of the chest were obtained. No acute pulmonary density is evident. There is no evidence of effusion or other pleural disease. The mediastinum has a normal appearance. The cardiac silhouette is unremarkable. IMPRESSION: Unremarkable chest exam. Reviewed, Interpreted and Dictated by Mau Rose MD Transcribed by Oliva Grayson Authenticated and [facility]
--- NOTE | 2025-10-26 10:49 | ED_ITS ---
Discharge Plan Disposition Patient Disposition: Home, Self-Care Prescriptions Prescriptions: New rhbyucllvvohvuw-rxiqjivem-KV 2-30-10 mg/5 mL syrup 5 ml PO Q6H PRN (Reason: cold symptoms) 7 Days Qty: 118 0RF baloxavir marboxil 80 mg tablet 80 mg PO ONCE Qty: 1 0RF No Action ipratropium-albuterol 0.5 mg-3 mg(2.5 mg base)/3 mL solution for nebulization inhalation Q6H PRN (Reason: wheezing) budesonide-formoterol [Symbicort] 80-4.5 mcg/actuation HFA aerosol inhaler 2 puff inhalation Q12H Airsupra 90-80 mcg/actuation HFA aerosol inhaler 2 inh inhalation Q6H PRN (Reason: shortness of breath or wheezing) Qty: 10.7 3RF budesonide-formoterol [Breyna] 160-4.5 mcg/actuation HFA aerosol inhaler 2 puff inhalation BID Qty: 10.2 3RF prednisone 20 mg tablet 40 mg PO DAILY 5 Days Qty: 10 0RF Rx Instructions: Take 40mg daily for 5 days Asthma Action Plan - To be used for asthma exacerbation upon doctors advise. fluticasone propionate 50 mcg/actuation spray,suspension 2 spray intranasal DAILY methocarbamol 500 mg tablet 1,000 mg PO PRN meloxicam 15 mg tablet 15 mg PO DAILY diazepam 2 mg tablet 2 mg PO PRN Fasenra 30 mg/mL syringe 30 mg SQ Q8W Qty: 1 4RF Rx Instructions: 30 mg administered once every 4 weeks for the first 3 doses, and then once every 8 weeks thereafter by subcutaneous injection albuterol sulfate 90 mcg/actuation HFA aerosol inhaler 2 puff INHALATION Q6HP PRN (Reason: Shortness Of Breath) fexofenadine [Gilda Allergy] 180 mg tablet 180 mg PO DAILY Qty: 30 0RF epinephrine [EpiPen] 0.3 mg/0.3 mL auto-injector 0.3 mg IM ONCE PRN (Reason: anaphylaxis) Qty: 1 0RF Rx Instructions: seek medical attention if need to administer Referrals Follow up/Referrals: Janes Mason [Primary Care Provider, Medical] - See instructions Activity Restrictions/Add. Instructions Additional Instructions/Restrictions: Your symptoms today were consistent with a COPD exacerbation secondary to influenza A. As discussed you are within 48 hours and are candidate for antiviral therapy given your high risk comorbidities. The medication that I prefer called Xofluza or baloxavir is not carried by a lot of pharmacies therefore I have sent this to your pharmacy in [place] please call back if they do not carry this and I will change this to Tamiflu. Secondarily your cough medicine has been sent to our local pharmacy here in [place]. No evidence of a serious bacterial infection or pneumonia etc. Antibiotics are not indicated at the moment but please return with any significant worsening of your symptoms. Also no evidence of sepsis today. Clinical Impressions Clinical Impression: URI (upper respiratory infection), Influenza A, Asthma exacerbation in COPD Print Language Print Language: Georgian Discharge ED Provider: Shonda Caba General Adult HPI General Chief complaint: Upper Respiratory Infection Stated complaint: SOA, Mucus Time Seen by Provider: 10/26/25 10:36 Mode of Arrival: Ambulatory Source of Information: Patient Description of Symptoms (Recalled from ER Triage Doc. by RN): pt has been exposed to the flu and strep at home. had a fever last night and is coughing. its clear. History of Present Illness HPI narrative: Patient is a 60-year-old female with a history of asthma and COPD who presents today with bodyaches fever over the last 48 hours and cough that is productive of sputum. States that she has been exposed to the flu and strep over the last few days with her grandchildren. Tells me she has had pneumonia numerous times in the past is followed by net sql developer Dr. Ayoub. She has never smoked in the past but has been diagnosed with COPD. States that she has standing steroid prescriptions at her pharmacy but has not been sick recently up until Saturday. Denies any significant shortness of breath etc. Also states she has had septic shock in the past which she states was attributed to rhinovirus. Related Data Home Medications ?Medication ?Instructions ?Recorded ?Confirmed fluticasone propionate 50 2 spray intranasal DAILY 10/21/25 mcg/actuation nasal spray,suspension albuterol sulfate 90 mcg/actuation 2 puff inhalation Q 6HP PRN 08/16/25 10/21/25 aerosol inhaler Shortness Of Breath diazepam 2 mg tablet 2 mg PO PRN 09/13/25 5 meloxicam 15 mg tablet 15 mg PO DAILY 09/13/25 12/06/28 methocarbamol 500 mg tablet 1,000 mg PO PRN 09/13/25 1 12/22/24 budesonide-formoterol HFA 80 2 puff inhalation Q12H 10/21/25 mcg-4.5 mcg/actuation aerosol inhaler (Symbicort) ipratropium 0.5 mg-albuterol 3 mg ml inhalation Q6H VA N wheezing 10/21/25 10/21/25 (2.5 mg base)/3 mL nebulization soln Previous Rx's ?Medication ?Instructions ?Recorded benralizumab 30 mg/mL subcutaneous 30 mg SQ Q8W #1 mL 04/28/25 syringe (Fasenra) epinephrine 0.3 mg/0.3 mL 0.3 mg (0.3 mL) IM ONCE PRN 08/17/25 injection, auto-injector (EpiPen) anaphylaxis #1 ea fexofenadine 180 mg tablet 180 mg PO DAILY #30 tabs (Gilda Allergy) albuterol 90 mcg-budesonide 80 2 inh inhalation Q6H VA N shortness 10/21/25 mcg/actuation HFA aerosol inhaler of breath or wheezin g #10.7 grams (Airsupra) budesonide-formoterol HFA 160 2 puff inhalation BID #1 0.2 grams 10/21/25 mcg-4.5 mcg/actuation aerosol inhaler (Breyna) prednisone 20 mg tablet 40 mg (2 x 20 mg) PO DAILY 5 days 10/21/25 #10 tabs baloxavir marboxil 80 mg tablet 80 mg PO ONCE #1 tab 1 12/27/24 pfcadqzvgjjvwzb-sgvakyvbbbohkox-ED 5 ml PO Q6H PRN col d symptoms 7 10/26/25 2 mg-30 mg-10 mg/5 mL oral syrup days #118 mL Allergies Allergy/AdvReac Type Severity Reaction Status Date / Time Penicillins Allergy Mild Unknown Verified 10/21/25 09:42 allergy reaction Sulfa (Sulfonamide Allergy Hives Verified 10/21/25 09:42 Antibiotics) codeine AdvReac Vomiting Verified 10/21/25 09:42 [facility] Dis[facility]: The information contained in this section may have been updated after the patient was seen, as this information can be updated by other users. Medical History (Updated 10/26/25 @ 11:58 by Shodna Caba MD) Asthma exacerbation Viral pneumonia Chronic neck pain Bronchitis Shortness of Breath Cough Pneumonia Febrile illness, acute Body aches Acute dyspnea Allergic rhinitis Dyspnea on exertion Abnormal EEG Fibroids Endometriosis Surgical History H/O breast augmentation History of appendectomy H/O nasal septoplasty Hx of cholecystectomy History of dilation and curettage H/O laparoscopy Family History Other Asthma Coronary artery disease Heart attack Social History Smoking Status: Never smoker alcohol intake: former substance use type: denies use current occupational status: other Travel in the last 8 weeks?: None household members: spouse housing: house marital status: caffeine: No Have you lived/traveled outside US in past 30 days?: No Contact w/someone who lives/traveled outside US past 30 days?: No Exposure to someone with infectious disease in past 14 days?: No Do you have a fever (greater than 100.4 F or 38 C)?: No Have you tested positive for COVID-19?: No Exposed to someone with COVID-19 in past 14 days?: No Do you have a sore throat?: No Do you have a cough?: No Do you have any weakness?: No Do you have any diarrhea?: No Are you experiencing any unusual bleeding?: No Do you have any muscle aches/pain?: No Do you have any abdominal pain?: No Are you experiencing loss of taste or smell?: No Other Medical History Have you received the Flu Vaccine for this season: No Have you received the Pneumonia Vaccine: No ROS Obtained: Yes All systems reviewed & no additional complaints except as documented Physical Exam General General appearance: alert and in no apparent distress Respiratory Respiratory exam: Present normal lung sounds bilaterally and other (Oxygen saturations 97% on room air); Absent respiratory distress Cardiovascular Cardiovascular exam: Present regular rate and tachycardia (Heart rate 105) Neurological Exam Neurological exam: Present alert and oriented X3 Medical Decision Making Medical Records Screening: Per USPSTF and CDC recommendations, given the prevalence of disease in our region, it is our hospital?s policy to screen for HIV and viral Hepatitis for all patients aged 18 and over and those with ongoing risk factors. [place] Inquiry Pt receiving controlled substance: No Vital Signs: 10/26/25 10:34 10/26/25 10:36 10/26/25 11:09 Temperature 98.6 F Temperature Source Oral Pulse Rate 114 H 124 H Pulse Rate [Right] 102 H Respiratory Rate 20 Blood Pressure 142/89 H Blood Pressure [Right Arm] 142/89 H Blood Pressure Mean [Right Arm] 106 02 Sat by Pulse Oximetry 93 L 97 96 10/26/25 11:27 10/26/25 11:30 Temperature Temperature Source Pulse Rate 101 H 100 H Pulse Rate [Right] Respiratory Rate Blood Pressure 140/82 137/75 Blood Pressure [Right Arm] Blood Pressure Mean [Right Arm] 02 Sat by Pulse Oximetry 99 98 Lab Data Lab results reviewed: Yes I reviewed the patient's lab results. Lab Results 10/26/25 10:33: SARS-CoV-2 (PCR) Not detected, Influenza A Untype (PCR) Detected A, Influenza Type B (PCR) Not detected Orders (Tests/Meds): ED MEDICATIONS Discontinued Medications Generic Name Dose Route Start Last Admin Trade Name Freq PRN Reason Stop Dose Admin Dexamethasone Sodium Phosphate 10 mg 10/26/25 10:46 10/26/25 10:52 Dexamethasone 4mg/Ml 1ml Vial IM 10/26/25 10:47 10 mg ONCE ONE Administration ORDERS Category Date Time Status Chest XR 2 view (NOT portable) [XR chest 2V] Stat Exams 10/26/25 10:46 Taken Rapid PCR Covid and Flu A/B Stat Lab 10/26/25 10:33 Completed Strep Scrn Group A (Rapid) Stat Lab 10/26/25 10:46 Ordered Medical Decision Narrative: Very well-appearing 60-year-old female presenting today with 48 hours of URI type viral symptoms. She has been exposed to strep and flu. She has no clinical signs or symptoms of strep pharyngitis however specifically requested to be tested for this which is reasonable. Given her history of pneumonia in the past from historical standpoint we will obtain a two-view chest x-ray despite the fact that she has normal oxygen saturation and normal respiratory exam. She has no evidence of any wheezing or prolonged expiratory phase at [facility]. She states that she normally does much better with a steroid shot in the situations and has had this numerous times in the past. Therefore I will give her a shot of dexamethasone. She states that she has breathing treatments at home currently does not wish to have these. The main thing she wants to do is to nip this in the bud. She specifically requested to be tested for rhinovirus however I told her this would not change any emergent management and there is no specific antiviral medications for that. She has no signs of severe sepsis or septic shock at the moment. She is aware of this and agreeable. She has within 48 hours of symptoms and is high risk in theory so if she is positive for COVID or the flu we will have a risk-benefit discussion regarding antiviral management. It is low likelihood right now that she has a serious bacterial infection. Reassessment 11:59 AM patient remains very stable and comfortable from a clinical standpoint chest x-ray was performed which I personally interpreted shows no evidence of any acute cardiopulmonary emergency. Patient is positive for influenza A she is high risk within 48 hours of symptoms and is a candidate for antiviral therapy. I prefer baloxavir in the situations and sent this to her pharmacy in [place] as many of the pharmacies in [place] do not carry this. Bromfed has been sent to her local pharmacy here return precautions emphasized patient discharged in stable condition. Critical Care Critical Care Time Critical Care Time: No
[2025-10-26 10:50] LABS: Coronavirus 19, PCR Not Detected (NotDetected); Influenza B, PCR Not Detected (NotDetected)
[2025-10-26] MEDS: DEXAMETHASONE 4MG/ML 1ML VIAL 10 MG IM (10:52)
[2025-10-26 11:09] VITALS: PULSE 124; O2SAT 96
[2025-10-26 11:19] LABS: Influenza A, PCR Detected (NotDetected)
[2025-10-26 11:27] VITALS: BP 140/82; PULSE 101; O2SAT 99
[2025-10-26 11:30] VITALS: BP 137/75; PULSE 100; O2SAT 98
[2025-10-26 12:00] VITALS: BP 137/75; PULSE 91; RESP 18; TEMP 36.9; O2SAT 97
== END 2025-10-26 12:01 | disposition home or self-care (01) ==
PROVIDERS: Emergency Provider Student in an Organized Health Care Education/Training Program; PCP Family Medicine
DX: J10.1 Influenza due to other identified influenza virus with other respiratory manifestations (principal); R06.02 Shortness of breath; J45.901 Unspecified asthma with (acute) exacerbation
CPT/HCPCS: 71046; 87636; 96372; 99283; 99284; J1100

== ENCOUNTER 2025-10-28 22:03 | Emergency (ER) | payer MEDICARE, BC, SELFPAY ==
--- OUTSIDE RECORDS SUMMARY | 2021-10-13 09:53 | XMS_ITS | Encounter Summary ---
[facility] [address] [place] [address] Care Team Providers Care Sanitary Landfill Supervisor Name Role Phone Janes Mason MD Primary Care Provider [phone] Reason for Visit * Diagnostic Imaging (Routine) - Closed Specialty Diagnoses / Procedures Referred By Contac t Referred To Contact Radiology Diagnoses Nontoxic multinodular goiter Procedures US Thyroid Raeann Carlson MD [address] [place] [address] Phone: tel: fax: [facility] [address] [place] [phone] Phone: tel: fax: Referral ID Status Reason Start Date Expiration Date Visits Re quested Visits Authorized [id number] Closed 10/13/2021 10/13/2022 1 1 Encounter Details Date Type Department Care Team (Late st Contact Info) Description 10/13/2021 9:53 AM EST Hospital Encounter [facility] [address] [place] [phone] Social History Tobacco Use Types Packs/Day [...] on filedocumented in this encounter Care Teams Sanitary Landfill Supervisor Relationship Specialty Start Date End Date Janes Mason MD [address] [place] [address] PCP - General Family Medicine 07/11/21 documented as of this encounter
[2025-10-28 22:04] VITALS: O2SAT 96
[2025-10-28 22:11] VITALS: BP 132/77; PULSE 105; RESP 16; TEMP 36.8; O2SAT 96; BMI 32.5
--- NOTE | 2025-10-28 22:13 | ECG_ITS ---
APPROVED REPORT Exam: Resting ECG HR:97 bpm ECG Measurements Heart Rate 97 AXES [place] 131 P 60 QRSd 91 QRS 43 QT 353 T 40 QTc 408 Conclusion Normal sinus rhythm Normal axis Normal intervals No STEMI Electronically signed by : Alverto Drake, 10/29/2025 02:02:00
--- OUTSIDE RECORDS SUMMARY | 2025-10-28 22:18 | XMS_ITS | Encounter Summary ---
Author Organization [employer] ([place], [place], [place], [place], [place]) Address [address] [place] [address] Care Team Providers Care Freelance Writer Name Role Phone Unavailable Primary Care Provider Unavailabl e Encounter Details Date Type Department Care Team (Late st Contact Info) Description 10/17/[address] [facility] [place] Family Medicine [facility] [place] [address] ProviderDarrell MD [address] [place], [place] [id number] Social History Tobacco Use Types Packs/Day Years Used Date Smoking Tobacco: Never Assessed Comments Unknown Sex and Gender Information Value Date Recorded Sex Assigned at Not on file Legal Sex Female 6:16 PM CDT Gender Identity Not on file Sexual Orientation Not on file documented as of this encounter Miscellaneous Notes * [employer] Conversion Note - Historical ProviderMD - 10/17/2020 11:15 PM CELL TENDER ED Discharge Vital Signs Entered On: 10/17/2020 23:15 EST Performed On: 10/17/2020 23:15 EST by Jeannette Fuller RN ED Discharge Vital Signs Peripheral Pulse Rate : 82 bpm Respiratory Rate : 20 Breaths/Min Systolic Blood Pressure : 121 mmHg Diastolic Blood Pressure : 67 mmHg Oxygen Saturation : 98 % Jeannette Fuller RN - 10/17/2020 23:15 EST Electronically signed by [employer] [facility] Conversion Physician Office Secretary Cerner at 02/18/2023 4:50 PM CDT documented in this encounter Plan of Treatment Not on file documented as of this encounter Visit Diagnoses Not on filedocumented in this encounter
--- OUTSIDE RECORDS SUMMARY | 2025-10-28 22:18 | XMS_ITS | Encounter Summary ---
Author Organization [employer] ([place], [place], [place], [place], [place]) Address [address] [place] [address] Care Team Providers Care Tent Assembler Name Role Phone Unavailable Primary Care Provider Unavailabl e Encounter Details Date Type Department Care Team (Late st Contact Info) Description 10/17/2020 Transcribed Document [facility] [place] [address] ProviderDarrell MD [address] [place] [id number] Social History Tobacco Use Types Packs/Day Years Used Date Smoking Tobacco: Never Assessed Comments Unknown Sex and Gender Information Value Date Recorded Sex Assigned at Not on file Legal Sex Female 6:16 PM CDT Gender Identity Not on file Sexual Orientation Not on file documented as of this encounter Miscellaneous Notes * [employer] Conversion Note - Historical ProviderMD - 10/17/2020 10:58 PM TURNER IN Electronically signed by [employer], [facility] Conversion Celery Stripper Cerner at 02/18/2023 4:55 PM CDT documented in this encounter Plan of Treatment Not on file documented as of this encounter Visit Diagnoses Not on filedocumented in this encounter
--- OUTSIDE RECORDS SUMMARY | 2025-10-28 22:18 | XMS_ITS | Encounter Summary ---
Author Organization [employer] ([place], [place], [place], [place], [place]) Address [address] [place] [address] Care Team Providers Care Aws Architect Name Role Phone Unavailable Primary Care Provider Unavailabl e Encounter Details Date Type Department Care Team (Late st Contact Info) Description 10/17/2020 Transcribed Document [facility] [place] [facility] [place] [address] ProviderDarrell MD [address] [place], [place] [id number] Social History Tobacco Use Types Packs/Day Years Used Date Smoking Tobacco: Never Assessed Comments Unknown Sex and Gender Information Value Date Recorded Sex Assigned at Not on file Legal Sex Female 6:16 PM CDT Gender Identity Not on file Sexual Orientation Not on file documented as of this encounter Miscellaneous Notes * [employer] Conversion Note - Historical ProviderMD - 10/17/2020 8:38 PM COMPLEX HUMAN RESOURCES MANAGER ED Event Note Entered On: 10/17/2020 [...]
--- OUTSIDE RECORDS SUMMARY | 2025-10-28 22:18 | XMS_ITS | Encounter Summary ---
Author Organization [employer] ([place], [place], [place], [place], [place]) Address [address] [place] [address] Care Team Providers Care Safety Tech Name Role Phone Unavailable Primary Care Provider Unavailabl e Encounter Details Date Type Department Care Team (Late st Contact Info) Description 10/17/2020 Transcribed Document [facility] [place] [facility] [place] [address] ProviderDarrell MD [address] [place], [place] [id number] Social History Tobacco Use Types Packs/Day Years Used Date Smoking Tobacco: Never Assessed Comments Unknown Sex and Gender Information Value Date Recorded Sex Assigned at Not on file Legal Sex Female 6:16 PM CDT Gender Identity Not on file Sexual Orientation Not on file documented as of this encounter Miscellaneous Notes * [employer]ner Conversion Note - Historical ProviderMD - 10/17/2020 8:40 PM CAMP HEAD COUNSELOR ED Event Note Entered On: 10/17/2020 [...]
--- OUTSIDE RECORDS SUMMARY | 2025-10-28 22:18 | XMS_ITS | Encounter Summary ---
Author Organization [employer] ([place], [place], [place], [place], [place]) Address [address] [place] [address] Care Team Providers Care Skiver Counter Name Role Phone Unavailable Primary Care Provider Unavailabl e Encounter Details Date Type Department Care Team (Late st Contact Info) Description 10/04/2020 Transcribed Document [facility] [place] [facility] [place] [address] ProviderDarrell MD [address] [place] [address] Social History Tobacco Use Types Packs/Day Years Used Date Smoking Tobacco: Never Assessed Comments Unknown Sex and Gender Information Value Date Recorded Sex Assigned at Not on file Legal Sex Female 6:16 PM CDT Gender Identity Not on file Sexual Orientation Not on file documented as of this encounter Miscellaneous Notes * Cerner Conversion Note - Historical ProviderMD - 10/04/2020 4:06 PM KETTLE CLEANER DATE OF ADMISSION: 10/04/2020 HISTORY OF PRESENT [...] is also using Cymbalta and taking her [place] 3 times daily. She says that she is also using Robaxin as needed and taking her Lyrica 3 times daily. The patient says that she really needs to have the [place] dosage 4 times daily. She says that [...] not to take the Lyrica and the [place] at the same time but alternate those. [...] visit and the patient has been afebrile. /[id number] FLOYD Mullins/MIRIAN / PITA / MODL CC: REYES (REF) MD AUDIE Electronically signed by [employer], [facility] Conversion Neurology Technician Cerner at 02/18/2023 4:59 PM CDT documented in this encounter Plan of Treatment Not on file documented as of this encounter Visit Diagnoses Not on filedocumented in this encounter
--- OUTSIDE RECORDS SUMMARY | 2025-10-28 22:18 | XMS_ITS | Encounter Summary ---
Author Organization [employer] ([place], [place], [place], [place], [place]) Address [address] [place] [address] Care Team Providers Care Net Coordinator Name Role Phone Unavailable Primary Care Provider Unavailabl e Encounter Details Date Type Department Care Team (Late st Contact Info) Description 10/17/2020 Transcribed Document [facility] [place] [address] [place] [address] ProviderDarrell MD [address] [place] [address] Social History Tobacco Use Types Packs/Day Years [...] ProviderMD - 10/17/2020 4:38 PM HIGH SCHOOL LEARNING SUPPORT TEACHER [place] Violence Assessment Entered On: 10/17/2020 22:43 [...]
--- OUTSIDE RECORDS SUMMARY | 2025-10-28 22:18 | XMS_ITS | Encounter Summary ---
Author Organization [employer] ([place], [place], [place], [place], [place]) Address [address] [place] [address] Care Team Providers Care Admissions Evaluator Name Role Phone Unavailable Primary Care Provider Unavailabl e Encounter Details Date Type Department Care Team (Late st Contact Info) Description 10/17/2020 Transcribed Document [facility] [place] [facility] [place] [address] ProviderDarrell MD [facility] [place], [place] [id number] Social History Tobacco Use Types Packs/Day Years Used Date Smoking Tobacco: Never Assessed Comments Unknown Sex and Gender Information Value Date Recorded Sex Assigned at Not on file Legal Sex Female 6:16 PM CDT Gender Identity Not on file Sexual Orientation Not on file documented as of this encounter Miscellaneous Notes * [employer] Conversion Note - Historical ProviderMD - 10/17/2020 8:05 PM PRECISION MACHINE OPERATOR Patient: FERMIN BARR Age: 55 Years Sex: [...] upset. Electronically signed by Paul Grubbs Conversion Electrical Systems Design Engineer Cerner at 02/18/2023 4:56 PM CDT documented in this encounter Plan of Treatment Not on file documented as of this encounter Visit Diagnoses Not on filedocumented in this encounter
--- OUTSIDE RECORDS SUMMARY | 2025-10-28 22:18 | XMS_ITS | Encounter Summary ---
Author Organization [employer] ([place], [place], [place], [place], [place]) Address [address] [place] [address] Care Team Providers Care Combination Saw Operator Name Role Phone Unavailable Primary Care Provider Unavailabl e Encounter Details Date Type Department Care Team (Late st Contact Info) Description 03/14/2020 Transcribed Document [facility] [place] Medicine [facility] [place] [address] ProviderDarrell MD [address] [place] [id number] Social History Tobacco Use Types Packs/Day Years [...] also trying to wean herself off her [place] by doing one-half tablet at a time. [...] it. 2. We are going to continue [place] 7.5/325 mg three times daily as needed. [...] medications for this patient's treatment plan today. /[id number] Jazz FLOYD Church/AQ / PITA / MODL CC: FLOYD Lazo MD Electronically signed by [employer], [facility] Conversion Tin Whiz Machine Operator Cerner at 02/18/2023 5:02 PM CDT documented in this encounter Plan of Treatment Not on file documented as of this encounter Visit Diagnoses Not on filedocumented in this encounter
--- OUTSIDE RECORDS SUMMARY | 2025-10-28 22:18 | XMS_ITS | Encounter Summary ---
Author Organization [employer] ([place], [place], [place], [place], [place]) Address [address] [place] [address] Care Team Providers Care Ornamental Metal Erector Apprentice Name Role Phone Unavailable Primary Care Provider Unavailabl e Encounter Details Date Type Department Care Team (Late st Contact Info) Description 05/10/2020 Transcribed Document [facility] [place] [facility] [place] [address] ProviderDarrell MD [address] [place] [address] Social History Tobacco Use Types Packs/Day Years [...] sedation, driving problem, or GI problem. Her translational specialist recently placed her on Cymbalta 30 mg [...] and walking. 8. I agree with her translational specialist to continue with Cymbalta 30 mg at [...] visit and the patient has been afebrile. /[id number] Pepe Krishna MD, BLAKE Pain Certified KR/AQ / KR / MODL CC: Janes Mason MD documented in this encounter Plan of Treatment Not on file documented as of this encounter Visit Diagnoses Not on filedocumented in this encounter
--- OUTSIDE RECORDS SUMMARY | 2025-10-28 22:18 | XMS_ITS | Encounter Summary ---
Author Organization [employer] ([place], [place], [place], [place], [place]) Address [address] [place] [address] Care Team Providers Care Supervising Floorperson Name Role Phone Unavailable Primary Care Provider Unavailabl e Encounter Details Date Type Department Care Team (Late st Contact Info) Description 02/15/2020 Transcribed Document [facility] Family Medicine [address] [place] [address] ProviderDarrell MD [address] [place] [address] Social History Tobacco Use Types Packs/Day Years [...] following up for medication refills of her [place] and gabapentin. She reports that she is having pain in the left side of her neck. She says the pain never changes. She reports that the pain is jtxy-rc-oxnxxajd at times. She says that the pain does radiate to the left shoulder. She reports that her pain is an aching sensation. She says she does have associated symptoms of depression and fatigue. She is using cold in addition to taking her Lyrica and [place] as prescribed. The patient says she does [...] and tooth loss. She says that the division head did say she was negative for Sjogren's but she does have an elevated ESR. The patient says that she does have a writer technical publications, Dr. Crow at [facility], however, she has not seen him in [...] 100 mg 3 times daily. 3. Continue [place] 7.5/325 mg 3 times daily as needed. [...] today and make an appointment with her writer technical publications in light of her symptoms so that [...] medications for this patient's treatment plan today. /[id number] FLOYD Mullins/MIRIAN / PITA / MODL documented in this encounter Plan of Treatment Not on file documented as of this encounter Visit Diagnoses Not on filedocumented in this encounter
--- OUTSIDE RECORDS SUMMARY | 2025-10-28 22:18 | XMS_ITS | Encounter Summary ---
Author Organization [employer] ([place], [place], [place], [place], [place]) Address [address] [place] [address] Care Team Providers Care Chipper Machine Operator Name Role Phone Unavailable Primary Care Provider Unavailabl e Encounter Details Date Type Department Care Team (Late st Contact Info) Description 10/17/2020 Transcribed Document [facility] Family Medicine [facility] [address] ProviderDarrell MD [address] [place] [address] 111801 Social History Tobacco Use Types Packs/Day Years Used Date Smoking Tobacco: Never Assessed Comments Unknown Sex and Gender Information Value Date Recorded Sex Assigned at Not on file Legal Sex Female 6:16 PM CDT Gender Identity Not on file Sexual Orientation Not on file documented as of this encounter Miscellaneous Notes * [employer]ner Conversion Note - Historical ProviderMD - 10/17/2020 11:14 PM CARRIER WASHER ED Discharge Entered On: 10/17/2020 23:14 EST [...]
--- OUTSIDE RECORDS SUMMARY | 2025-10-28 22:18 | XMS_ITS | Encounter Summary ---
Author Organization [employer] ([place], [place], [place], [place], [place]) Address [address] [place] [address] Care Team Providers Care Leaf Tier Name Role Phone Unavailable Primary Care Provider Unavailabl e Encounter Details Date Type Department Care Team (Late st Contact Info) Description 10/17/2020 Transcribed Document [facility] [place] [facility] [place] [address] ProviderDarrell MD [address] [place] [address] Social History Tobacco Use Types Packs/Day Years Used Date Smoking Tobacco: Never Assessed Comments Unknown Sex and Gender Information Value Date Recorded Sex Assigned at Not on file Legal Sex Female 6:16 PM CDT Gender Identity Not on file Sexual Orientation Not on file documented as of this encounter Miscellaneous Notes * Cerner Conversion Note - Historical ProviderMD - 10/17/2020 4:38 PM INFORMATION ASSURANCE ENGINEER ED Assessment Entered On: 10/17/2020 22:43 [...] Communication Barrier : None Primary Language : Guatemalan Any Spiritual/Cultural Needs or Requests : No [...] Rhythm : Regular Nail Bed Color : Bluebell Chest Pain : Yes Neck Vein Distention [...] 22:40 EST Electronically signed by [employer], [facility] Conversion Barrel Raiser Helper Cerner at 02/18/2023 5:10 PM CDT documented in this encounter Plan of Treatment Not on file documented as of this encounter Visit Diagnoses Not on filedocumented in this encounter
--- OUTSIDE RECORDS SUMMARY | 2025-10-28 22:18 | XMS_ITS | Clinical Summary ---
Author Organization Healthcare Address [address] [id number] Care Team Providers Care Stone Driller Name Role Phone Janes Mason MD Primary Care Provider [phone] Social History Tobacco Use Types Packs/Day Years [...] 2 - PCV20 or PCV21) 10/24/2019 10/24/2018 [id number] Vaccine ( season) 2025 09/14/2021, 02/24/2021, 01/10/2021 [...] to complete this topic Insurance [facility] [place] [address] Care Teams Stone Driller Relationship Specialty [place] [id number] PCP - General 03/17/21
--- OUTSIDE RECORDS SUMMARY | 2025-10-28 22:18 | XMS_ITS | Encounter Summary ---
Author Organization [employer] ([place], [place], [place], [place], [place]) Address [address] [place] [address] Care Team Providers Care Log Brander Name Role Phone Unavailable Primary Care Provider Unavailabl e Encounter Details Date Type Department Care Team (Late st Contact Info) Description 08/04/2020 Transcribed Document [facility] [place] [address] [place] [address] ProviderDarrell MD [address] [place] [address] Social History Tobacco Use Types Packs/Day Years [...] visit and the patient has been afebrile. /[id number] Pepe Krishna MD, BLAKE Pain Certified KR/MIRIAN / EN / MODL CC: Dr. Janes Mason Electronically signed by [facility], [facility] Conversion Media Aid Cerner at 02/18/2023 4:48 PM CDT documented in this encounter Plan of Treatment Not on file documented as of this encounter Visit Diagnoses Not on filedocumented in this encounter
--- OUTSIDE RECORDS SUMMARY | 2025-10-28 22:18 | XMS_ITS | Encounter Summary ---
Author Organization [employer] ([place], [place], [place], [place], [place]) Address [address] [place] [address] Care Team Providers Care Weigh Boss Name Role Phone Unavailable Primary Care Provider Unavailabl e Encounter Details Date Type Department Care Team (Late st Contact Info) Description 10/17/2020 Transcribed Document [facility] [place] [facility] [place] [address] ProviderDarrell MD [address] [place] [address] Social History Tobacco Use Types Packs/Day Years Used Date Smoking Tobacco: Never Assessed Comments Unknown Sex and Gender Information Value Date Recorded Sex Assigned at Not on file Legal Sex Female 6:16 PM CDT Gender Identity Not on file Sexual Orientation Not on file documented as of this encounter Miscellaneous Notes * Cerner Conversion Note - Historical ProviderMD - 10/17/2020 8:29 PM SKIAGRAPHER Vital Signs ED Entered On: 10/17/2020 20:29 [...] 10/17/2020 20:29 EST Electronically signed by [employer] Conversion Wood And Wood Products Factory Worker Cerner at 02/18/2023 4:53 PM CDT documented in this encounter Plan of Treatment Not on file documented as of this encounter Visit Diagnoses Not on filedocumented in this encounter
--- OUTSIDE RECORDS SUMMARY | 2025-10-28 22:18 | XMS_ITS | Encounter Summary ---
Author Organization [employer] ([place], [place], [place], [place], [place]) Address [address] [place] [address] Care Team Providers Care Research Agricultural Engineer Name Role Phone Unavailable Primary Care Provider Unavailabl e Encounter Details Date Type Department Care Team (Late st Contact Info) Description 10/17/2020 Transcribed Document [facility] [place] Family Medicine [address] [place] [address] ProviderDarrell MD [address] [place] [address] Social History Tobacco Use Types Packs/Day Years Used Date Smoking Tobacco: Never Assessed Comments Unknown Sex and Gender Information Value Date Recorded Sex Assigned at Not on file Legal Sex Female 6:16 PM CDT Gender Identity Not on file Sexual Orientation Not on file documented as of this encounter Miscellaneous Notes * Cerner Conversion Note - Historical ProviderMD - 10/17/2020 4:38 PM RN PLASTICS [place] Suicide Severity Rating Scale (C-SSRS) Entered On: 10/17/2020 22:43 EST Performed On: 10/17/2020 22:40 EST by Jeannette Fuller RN [place] Suicide Severity Rating Scale (C-SSRS) CSSRS Past [...]
--- OUTSIDE RECORDS SUMMARY | 2025-10-28 22:18 | XMS_ITS | Encounter Summary ---
Author Organization [employer] ([place], [place], [place], [place], [place]) Address [address] [place] [address] Care Team Providers Care New Car Make Ready Worker Name Role Phone Unavailable Primary Care Provider Unavailabl e Encounter Details Date Type Department Care Team (Late st Contact Info) Description 04/11/2020 Transcribed Document [facility] [place] [address] [place] [address] ProviderDarrell MD [address] [place] [address] Social History Tobacco Use Types Packs/Day Years [...] she is still trying to decrease her [place] usage, however, she had to go back [...] have some constipation, but she uses something puhv-cbo-qftzuih that does help with that. The patient is also taking diclofenac as well as Robaxin and Lyrica in addition to the [place] and denies any adverse effects from any [...] 100 mg 3 times daily. 6. Continue [place] 7.5/325 mg 3 times daily as needed. [...] medications for this patient's treatment plan today. /[id number] FLOYD Mullins/MIRINA / PITA / MODL CC: Janes Mason MD Electronically signed by [employer], [facility] Conversion Pull Worker Cerner at 02/18/2023 5:04 PM CDT documented in this encounter Plan of Treatment Not on file documented as of this encounter Visit Diagnoses Not on filedocumented in this encounter
--- OUTSIDE RECORDS SUMMARY | 2025-10-28 22:18 | XMS_ITS | Encounter Summary ---
Author Organization [employer] ([place], [place], [place], [place], [place]) Address [address] [place] [address] Care Team Providers Care Electronic Plotting System Operator Name Role Phone Unavailable Primary Care Provider Unavailabl e Encounter Details Date Type Department Care Team (Late st Contact Info) Description 09/02/2020 Transcribed Document [facility] [place] Family Medicine [address] [place] [address] ProviderDarrell MD [address] [place] [address] Social History Tobacco Use Types Packs/Day Years [...] help with the pain. She is taking [place] 3 times daily as needed and Lyrica [...] with alcohol, or self-escalate it. 2. Continue [place] 7.5/325 mg 3 times daily as needed. [...] visit and the patient has been afebrile. /[id number] FLOYD Mullins/MIRIAN / PITA / MODL CC: Janes Mason MD documented in this encounter Plan of Treatment Not on file documented as of this encounter Visit Diagnoses Not on filedocumented in this encounter
--- OUTSIDE RECORDS SUMMARY | 2025-10-28 22:18 | XMS_ITS | Encounter Summary ---
Author Organization [employer] ([place], [place], [place], [place], [place]) Address [address] [place] [address] Care Team Providers Care Mystery Shopper Name Role Phone Unavailable Primary Care Provider Unavailabl e Encounter Details Date Type Department Care Team (Late st Contact Info) Description 06/27/2020 Transcribed Document [facility] Family Medicine [facility] [address] ProviderDarrell MD [address] [place] [address] Social History Tobacco Use Types Packs/Day Years [...] possible. The patient is also taking her [place] 3 times daily as needed and her [...] dose. She has voiced understanding. 3. Continue [place] 7.5/325 mg 3 times daily as [...] visit and the patient has been afebrile. /[id number] DICTATED BY: Jazz Orta APRN for Pepe Krishna MD, BLAKE Pain Certified Pepe Krishna MD, BLAKE Pain Certified PITA/AQ / PITA / MODL CC: REYES (REF) MD AUDIE documented in this encounter Plan of Treatment Not on file documented as of this encounter Visit Diagnoses Not on filedocumented in this encounter
--- OUTSIDE RECORDS SUMMARY | 2025-10-28 22:18 | XMS_ITS | Encounter Summary ---
Author Organization [employer] ([place], [place], [place], [place], [place]) Address [address] [place] [address] Care Team Providers Care Baseball Umpire For Little League Name Role Phone Unavailable Primary Care Provider Unavailabl e Encounter Details Date Type Department Care Team (Late st Contact Info) Description 10/17/2020 Transcribed Document [facility] Family Medicine [facility] [place] [address] ProviderDarrell MD [address] [place] [address] Social History Tobacco Use Types Packs/Day Years Used Date Smoking Tobacco: Never Assessed Comments Unknown Sex and Gender Information Value Date Recorded Sex Assigned at Not on file Legal Sex Female 6:16 PM CDT Gender Identity Not on file Sexual Orientation Not on file documented as of this encounter Miscellaneous Notes * Cerner Conversion Note - Historical ProviderMD - 10/17/2020 10:52 PM FACTORY MACHINE COMPUTER OPERATOR Patient: FERMIN BARR Age: 55 years Sex: Female : 1965 Associated Diagnoses: Elevated WBCs; PNA (pneumonia) Author: HAYLEE YOUNGBLOOD PA-C Basic Information Additional information: Chief Complaint from Nursing Triage Note : Chief Complaint 10/17/2020 17:31 EST Chief Complaint Hospitalized at [facility] last week c sepsis/PNA. Saw Maximiliano Alicia [...] Patient says that after being discharged from [facility] last week due to sepsis [...] to see if she could come to [facility] to have her blood work done in [...] 30 Tab, 2 Refill(s) Documented Medications Documented [place] 7.5 mg-325 mg oral tablet: 1 Tab, [...] EST Height Source Stated Height Entry Format [place] Height/Length, SAMMARINESE (ft) 5 ft Height/Length SAMMARINESE 4 Inch CLINICALHEIGHT 162.56 cm [place] Body Weight 54.3 kg Weight Source, ED Critical estimated dosing weight Weight Entry Format [place] Weight Bulgarian lb 250 lb CLINICALWEIGHT 113.64 kg Body [...] Triage: ED C-SSRS: ED Clinical Reconciliation: ED profiling machine setup operator: EKG: Lactic Acid Level with Reflex if [...] 11.7 % LOW Lymph # 2.28 x10(3)/uL Person % 4.3 % Person # 0.83 K/uL Eos % 0.1 % [...]
--- OUTSIDE RECORDS SUMMARY | 2025-10-28 22:19 | XMS_ITS | Encounter Summary ---
Author Organization [employer] ([place], [place], [place], [place], [place]) Address [address] [place] [address] Care Team Providers Care Stock Worker Name Role Phone Unavailable Primary Care Provider Unavailabl e Encounter Details Date Type Department Care Team (Late st Contact Info) Description 11/10/2019 Transcribed Document [facility] [place] [address] [place] [address] ProviderDarrell MD [address] [place] [address] Social History Tobacco Use Types Packs/Day Years Used Date Smoking Tobacco: Never Assessed Comments Unknown Sex and Gender Information Value Date Recorded Sex Assigned at Not on file Legal Sex Female 6:16 PM CDT Gender Identity Not on file Sexual Orientation Not on file documented as of this encounter Miscellaneous Notes * Cerner Conversion Note - Historical ProviderMD - 11/10/2019 8:58 AM CONTROLS DESIGN ENGINEER DATE OF ADMISSION: 11/09/2019 HISTORY OF PRESENT [...] home exercises in addition to taking her [place] 3 times daily as needed and her Lyrica 3 times daily. The patient says that she is currently seeing a media services specialist every 3 months due to some [...] if we could refer her to a transformer assembler that she would like to be evaluated [...] with alcohol, or self-escalate it. 2. Continue [place] 7.5/325 mg 3 times daily as needed. [...] medications for this patient's treatment plan today. /[id number] DICTATED BY: Jazz Orta APRN for Pepe Krishna MD, BLAKE Pain Certified Pepe Krishna MD, BLAKE Pain Certified PITA/AQ / PITA / MODL CC: FLOYD Lazo MD Electronically signed by [facility], [facility] Conversion Banking Supervisor Cerner at 02/18/2023 5:00 PM CDT documented in this encounter Plan of Treatment Not on file documented as of this encounter Visit Diagnoses Not on filedocumented in this encounter
--- OUTSIDE RECORDS SUMMARY | 2025-10-28 22:19 | XMS_ITS | Encounter Summary ---
Author Organization [employer] ([place], [place], [place], [place], [place]) Address [address] [place] [address] Care Team Providers Care Floral Clerk Name Role Phone Unavailable Primary Care Provider Unavailabl e Encounter Details Date Type Department Care Team (Late st Contact Info) Description 12/15/2019 Transcribed Document [facility] [place] [address] ProviderDarrell MD [address] [place] [address] Social History Tobacco Use Types Packs/Day Years Used Date Smoking Tobacco: Never Assessed Comments Unknown Sex and Gender Information Value Date Recorded Sex Assigned at Not on file Legal Sex Female 6:16 PM CDT Gender Identity Not on file Sexual Orientation Not on file documented as of this encounter Miscellaneous Notes * Cerner Conversion Note - Historical ProviderMD - 12/15/2019 1:46 PM [place] DATE OF ADMISSION: 12/15/2019 HISTORY OF PRESENT [...] Lyrica 100 mg three times daily, and [place] 7.5/325 mg three times daily as needed. [...] 100 mg three times daily. 4. Continue [place] 7.5/325 mg three times daily as needed. [...] patient to attend her workup with the magician helper. 9. We are going to see the patient back in 1 month to re-evaluate. 10. The assessment and plan for today's visit have been reviewed by Dr. Krishna, however, I have prescribed the medications for this patient's treatment plan today. /[id number] Jazz Orta APRN PITA/AQ / PITA / MODL CC: MD Nneka Alcantar APRN documented in this encounter Plan of Treatment Not on file documented as of this encounter Visit Diagnoses Not on filedocumented in this encounter
--- OUTSIDE RECORDS SUMMARY | 2025-10-28 22:19 | XMS_ITS | Encounter Summary ---
Author Organization [employer] ([place], [place], [place], [place], [place]) Address [address] [place] [address] Care Team Providers Care Team Leader/Research Psychologist Name Role Phone Unavailable Primary Care Provider Unavailabl e Encounter Details Date Type Department Care Team (Late st Contact Info) Description 04/14/2019 Transcribed Document [facility] [place] [facility] [place] [address] ProviderDarrell MD [address] [place] [address] Social History Tobacco Use Types Packs/Day Years [...] Dr. Janes Mason Electronically signed by [employer] [facility] Conversion Fell Cutter Cerner at 02/18/2023 4:56 PM CDT documented in this encounter Plan of Treatment Not on file documented as of this encounter Visit Diagnoses Not on filedocumented in this encounter
--- OUTSIDE RECORDS SUMMARY | 2025-10-28 22:19 | XMS_ITS | Encounter Summary ---
Author Organization [employer] ([place], [place], [place], [place], [place]) Address [address] [place] [address] Care Team Providers Care Real Estate Services Administrator Name Role Phone Unavailable Primary Care Provider Unavailabl e Encounter Details Date Type Department Care Team (Late st Contact Info) Description 06/08/2019 Transcribed Document [facility] [place] Family [place] [facility] [place] [address] ProviderDarrell MD [address] [place] [address] Social History Tobacco Use Types Packs/Day Years [...] Lyrica 100 mg 3 times daily and [place] 7.5/325 mg 3 times daily as needed. [...] doing well with the increase in the [place] and it is giving her so much [...] with alcohol, or self-escalate it. 2. Continue [place] 7.5/325 mg 3 times daily. 3. Continue [...] for pain alleviation prior to taking her [place], including heat, ice, relaxation, rest, and meditation. [...]
--- OUTSIDE RECORDS SUMMARY | 2025-10-28 22:19 | XMS_ITS | Encounter Summary ---
Author Organization [employer] ([place], [place], [place], [place], [place]) Address [address] [place] [address] Care Team Providers Care Motor Vehicle Examiner Name Role Phone Unavailable Primary Care Provider Unavailabl e Encounter Details Date Type Department Care Team (Late st Contact Info) Description 05/11/2019 Transcribed Document [facility] [place] Family [place] [facility] [place] [address] ProviderDarrell MD [address] [place] [address] Social History Tobacco Use Types Packs/Day Years [...] says that she has been taking her [place] 2-3 times daily as needed. The patient [...] Lyrica 100 mg 3 times daily and [place] 7.5/325 mg 2-3 times daily as needed. [...] to give the patient 7.5/325 mg of [place] 3 times a day consistently with #90 [...] Dr. Janes Mason Electronically signed by [employer] [facility] Conversion Pet Sitting Cerner at 02/18/2023 5:01 PM CDT documented in this encounter Plan of Treatment Not on file documented as of this encounter Visit Diagnoses Not on filedocumented in this encounter
--- OUTSIDE RECORDS SUMMARY | 2025-10-28 22:19 | XMS_ITS | Clinical Summary ---
Author Organization [facility] Address [address] [place] [address] Phone Care Team Providers Care Review Trainer Name Role Phone Janes Mason Primary Care Provider [phone] Allergies Active Allergy Reactions Criticality Noted Date [...] to complete this topic Insurance PPO [facility] Care Teams Review Trainer Relationship Specialty Start Date End Date Janes Mason [address] [place] [phone] PCP - General Family Medicine 04/09/17
--- OUTSIDE RECORDS SUMMARY | 2025-10-28 22:19 | XMS_ITS | Encounter Summary ---
Author Organization [employer] ([place], [place], [place], [place], [place]) Address [address] [place] [address] Care Team Providers Care Student Financial Aid Manager Name Role Phone Unavailable Primary Care Provider Unavailabl e Encounter Details Date Type Department Care Team (Late st Contact Info) Description 09/24/2019 Transcribed Document [facility] [place] [facility] [place] [address] Darrell Flores MD [address] [place] [address] [id number] Social History Tobacco Use Types Packs/Day Years Used Date Smoking Tobacco: Never Assessed Comments Unknown Sex and Gender Information Value Date Recorded Sex Assigned at Not on file Legal Sex Female 6:16 PM CDT Gender Identity Not on file Sexual Orientation Not on file documented as of this encounter Miscellaneous Notes * [employer]ner Conversion Note - Darrell Flores MD - 09/24/2019 11:59 AM SOFT CRAB SHEDDER DATE OF PROCEDURE: 09/24/2019 SURGEON: Pepe Krishna [...] to continue with the same plan. 1. [place] 7.5/325 three times a day. 2. Lyrica 100 mg 3 times a day. 3. Robaxin 750 mg 3 times a day. 4. Movantik 25 mg 1 a day. 5. I am going to see the patient after 2 to 4 weeks to re-evaluate her. /[id number] Pepe Krishna MD, BLAKE Pain Certified EN/MIRIAN / EN / MODL /[id number] Electronically signed by [employer], [facility] Conversion Sales Representative Publications Cerner at 02/18/2023 5:03 PM CDT documented in this encounter Plan of Treatment Not on file documented as of this encounter Visit Diagnoses Not on filedocumented in this encounter
--- OUTSIDE RECORDS SUMMARY | 2025-10-28 22:19 | XMS_ITS | Patient Health Record ---
Author Organization [facility] Address [address] [place] [address] Care Team Providers Care Take Out Waitress Name Role Phone Ilan Caballero [phone] Allergies Allergen (clinical drug ingredient) Drug/Non Drug [...] Risk Notes Problem Cervical spondylosis without myelopathy (091224464) Cervical spondylosis without myelopathy (M47.812) Active confirmed Problem Cervical post-laminectom y syndrome (969950518) Cervical post-laminectomy syndrome (M96.1) Active confirmed Problem Cervical spondylosis without myelopathy (065308130) Cervical spondylosis with radiculopathy (M47.22) Active confirmed Plan Of Treatment No Information Insurance Providers Payer Name Payer Address Payer Phone Subscriber Number Group Number Insured Name Patient Relationship to Insured Coverage Start Date Coverage End Date [employer] [address] [place] [address] [id number] Darshana Barr Self - patient is the insured Medicare [employer] Administ[employer] [address] [address] [place] [address] [id number] Darshana Barr Self - patient is the insured 0 [employer] [address] [place] [address] [id number] Darshana Barr Self - patient is the insured 0 Medical (General) History Medical History History ICD Code ALLERGIES ARTHRITIS ASTHMA DEPRESSION/ANXIETY EMPHYSEMA/COPD HIGH CHOLESTEROL THYROID DISEASE Surgical History Surgery Date(Month/Year) GALLBLADDER/APPENDIX 1991 TOTAL HYSTERECTOMY 2010 CERVICAL SURGERY C5-7 2017 [facility] ABORTED DUE TO SCAR TISSUE 2018 Hospitalization History Reason Date(Month/Year) DOUBLE PNEUMONIA 2018 SEPTIC SHOCK 10/2020
--- OUTSIDE RECORDS SUMMARY | 2025-10-28 22:19 | XMS_ITS | Encounter Summary ---
Author Organization [employer] ([place], [place], [place], [place], [place]) Address [address] [place] [address] Care Team Providers Care Ethylene Compressor Operator Name Role Phone Unavailable Primary Care Provider Unavailabl e Encounter Details Date Type Department Care Team (Late st Contact Info) Description 11/24/2018 Transcribed Document [facility] [place] [facility] [place] [address] ProviderDarrell MD [address] [place] [id number] Social History Tobacco Use Types Packs/Day Years Used Date Smoking Tobacco: Never Assessed Comments Unknown Sex and Gender Information Value Date Recorded Sex Assigned at Not on file Legal Sex Female 6:16 PM CDT Gender Identity Not on file Sexual Orientation Not on file documented as of this encounter Miscellaneous Notes * Cerner Conversion Note - Historical ProviderMD - 11/24/2018 3:56 PM REINSURANCE ANALYST DATE OF ADMISSION: 11/24/2018 HISTORY OF PRESENT [...] it. The patient does continue to take [place] 7.5/325 mg 2-3 times a day as [...] radiculopathy. 4. Cervical spondylosis. PLAN: 1. Refill [place] 7.5/325 mg 2-3 times a day as [...] Mason Electronically signed by [facility] Conversion Line Closer Cerner at 02/18/2023 4:59 PM CDT documented in this encounter Plan of Treatment Not on file documented as of this encounter Visit Diagnoses Not on filedocumented in this encounter
--- OUTSIDE RECORDS SUMMARY | 2025-10-28 22:19 | XMS_ITS | Encounter Summary ---
Author Organization [employer] ([place], [place], [place], [place], [place]) Address [address] [place] [address] Care Team Providers Care Edger Runner Name Role Phone Unavailable Primary Care Provider Unavailabl e Encounter Details Date Type Department Care Team (Late st Contact Info) Description 01/05/2019 Transcribed Document [facility] [place] [facility] [place] [address] ProviderDarrell MD [address] [place] [id number] Social History Tobacco Use Types Packs/Day Years Used Date Smoking Tobacco: Never Assessed Comments Unknown Sex and Gender Information Value Date Recorded Sex Assigned at Not on file Legal Sex Female 6:16 PM CDT Gender Identity Not on file Sexual Orientation Not on file documented as of this encounter Miscellaneous Notes * Cerner Conversion Note - Historical ProviderMD - 01/05/2019 1:45 PM WOOD REPATCHER DATE OF ADMISSION: 01/05/2019 HISTORY OF PRESENT [...] now. The patient does continue to take [place] 7.5/325 mg 2-3 times a day as [...] 5. Long-term opioid use. PLAN: 1. Refill [place] 7.5/325 mg 2-3 times a day as [...] Janes Mason Electronically signed by [facility] Conversion Deep Well Contractor Cerner at 02/18/2023 4:50 PM CDT documented in this encounter Plan of Treatment Not on file documented as of this encounter Visit Diagnoses Not on filedocumented in this encounter
--- OUTSIDE RECORDS SUMMARY | 2025-10-28 22:19 | XMS_ITS | Encounter Summary ---
Author Organization [employer] ([place], [place], [place], [place], [place]) Address [address] [place] [address] Care Team Providers Care Corporate Director Talent Assessment Name Role Phone Unavailable Primary Care Provider Unavailabl e Encounter Details Date Type Department Care Team (Late st Contact Info) Description 02/09/2019 Transcribed Document [facility] [place] [facility] [place] [address] Darrell Flores MD [address] [place] [address] Social History Tobacco Use Types Packs/Day Years [...] patient states that she did see her band presser and has some of her COPD medications [...] filled. The patient does continue to take [place] 7.5/325 mg 2-3 times a day as [...] 5. Long-term opioid use. PLAN: 1. Refill [place] 7.5/325 mg 2-3 times a day as [...] medications were prescribed by me. Dictated By: uLla Denny APRN For Pepe Krishna M.D., BLAKE Pain Certified Pepe Krishna M.D., BLAKE Pain Certified Dict: 02/09/2019 13:36:32 Trans: 02/09/2019 18:08:39 CC1: Pepe Krishna M.D., BLAKE Pain Certified CC2: Dr. Janes Mason documented in this encounter Plan of Treatment Not on file documented as of this encounter Visit Diagnoses Not on filedocumented in this encounter
--- OUTSIDE RECORDS SUMMARY | 2025-10-28 22:19 | XMS_ITS | Data Portability ---
Author Organization [facility] BEN OlivaS ELTON CLOSED Address [address] [facility] [place] [address] Care Team Providers Care Managing Principal Name Role Phone JOHNCARI ANDERSON Pain Management [...] upper extremity pain, last seen here 10/03/17, [facility]. She describes pain in her neck which radiates into her left shoulder, left upper extremity mcfp to her elbow. Numbness and tingling on [...] she required hospitalization. She also talked to [facility] back in 2017 and they also did [...] citrullina yadira peptide) iga+igg, serum 2019 020 [facility], [address] [place] [address], [address], 0 02:31:52 C reactive protein, QN, serum or plasma 2019 020 [facility], [address] [place] [address], [address], 0 12:05:13 rf (rheumatoi d factor), serum 2019 [facility], [address] [place] [address], [address], 0 12:05:16 ESR (erythrocy te sedimentat ion rate), blood 2019 [facility], [address] [place] [address], [address], 0 12:07:47 uric acid, serum or plasma 2019 020 [facility], [address] [place] [address], [address], 0 12:05:14 SHAHLA (antinucle ar antibodies ) panel, serum 2019 [facility], [address] [place] [address], [address], 0 20:24:27 sjogren antibody panel, serum 2019 020 [facility], [address] [place] [address], [address], 0 14:33:56 thyroid panel, serum 2019 020 [facility], [address] [place] [address], [address], 0 15:14:22 hepatitis (A+B+C) panel, serum 2019 [facility], [address] [place] [address], [address], 0 12:34:14 T4, total, serum 2019 020 [facility], [address] [place] [address], [address], 0 12:08:33 T3, total, serum 2019 020 [facility], [address] [place] [address], [address], 0 12:08:34 TSH, serum or plasma 2019 020 [facility], [address] [place] [address], [address], 0 12:15:13 Referral None recorded. Procedures None recorded. Surgeries None recorded. Imaging CT, cervical spine, w/o contrast 2016 017 [facility], [address] [place] [address], [address], 7 13:34:59 Medication Orders duloxetine 30 mg capsule,de layed release 2019 020 INTERFACE [facility] [place], [address], 0 13:36:37 Patient TargetsNo targets recorded. Patient Instructions Encounter Date Encounter Id Patient Instructions Last Modified By Organization Details Last Modified Time 06/25/2017 [id number] cervical spondylosis: care instructions JOAO Not available 06/26/2017 17:52:28 neck arthritis: exercises JOAO Not available 06/26/2017 17:52:28 10/03/2017 [id number] cervical spondylosis: care instructions JOAO Not available [...] exclu de infla mmato ry proce sses. Alto yadira hanna ntrat ions of < 5 mg/dL in acute disea se occur in the prese nce of sligh t to moder ate infla mmato ry proce sses. Value s > 5 mg/dL indic ate high and exten sive infla mmato ry activ ity. Not Available [facility] [address] [place] [address], [address], 12/15/2019 12:05:13 12/15/1912/15/2019 uric acid, serum or plasm a uric acid 5.2 mg/dL 2.4-5. 7 normal Not Available [facility] [address] [place] [address], [address], 12/15/2019 12:05:14 12/15/1912/15/2019 rf (rheu matoi d facto r), serum rf screen, quant. <10.0 IU/mL 0.0-13 .9 normal Not Available [facility] [address] [place] [address], [address], 12/15/2019 12:05:16 12/15/1912/15/2019 ESR (eryt hrocy te sedim entat ion rate) , blood ESR, automated 34 mm/HR 0-29 high Not Available [facility] [address] [place] [address], [address], 12/15/2019 12:07:47 12/15/1912/15/2019 T4, total , serum T4 (thyroxine) 8.69 ug/dL 4.50-1 1.70 normal Not Available [facility] [address] [place] [address], [address], 12/15/2019 12:08:32 12/15/1912/15/2019 T3, total , serum T3, total 110.0 NG/dL 80.0-2 00.0 normal Not Available [facility] [address] [place] [address], [address], 12/15/2019 12:08:34 12/15/19 20 12/15/2019 TSH, serum or plasm a TSH 1.870 uIU/m L 0.290- 5.500 normal Not Available [facility] [address] [place] [address], [address], 12/15/2019 12:15:13 12/15/19 20 12/15/2019 hepat itis (A+B+ C) panel , serum hepatitis B surface Ag NON-RE ACTIVE non-re active normal Not Available [facility] [address] [place] [address], [address], 12/16/2019 16:34:45 12/15/19 20 12/16/2019 hepat itis (A+B+ C) panel , serum hepatitis A Ab, IgM NON-RE ACTIVE non-re active normal For addit ional infor salvatore gunter e refer to http: //[facility] willis.milton lizamaia gnost ics.c om/fa q/FAQ 202 (This link is being provi ded for infor luci jaramillo/ educa karlee l purpo ses only. ) TEST PERFO RMED AT: [facility] [address] [facility] [place] [address] EVA Joshi MD Not Available [facility] [address] [place] [address], [address], 12/16/2019 16:34:45 12/15/19 20 12/16/2019 hepat itis (A+B+ C) panel , serum hepatitis B core Ab,IgM NON-RE ACTIVE non-re active normal TEST PERFO RMED AT: [facility] [address] [facility] [place] [address] EVA Joshi MD Not Available [facility] [address] [place] [address], [address], 12/16/2019 16:34:45 12/15/19 20 12/16/2019 hepat itis (A+B+ C) panel , serum hcab, reflex viral RNA qt NON-RE ACTIVE non-re active normal Not Available [facility] [address] [place] [address], [address], 12/16/2019 16:34:45 12/15/19 20 12/16/2019 hepat itis [...] a test for HCV RNA (test code 51226 ) is sugge sted. For addit ional infor luci chase e refer to http: //[facility] n.que stdia gnost ics.c om/fa q/FAQ 22v1 (This link is being provi ded for infor luci jaramillo/ educa karlee l purpo ses only. ) TEST PERFO RMED AT: [facility] [address] [place] [address] EVA Joshi MD Not Available [facility] [address] [place] [address], [address], 12/16/2019 16:34:45 12/15/19 20 12/16/2019 sjogr en antib ashish panel , serum ss-A Ab <1.0 NEG ai <1.0 neg normal Not Available [facility] [address] [place] [address], [address], 12/16/2019 14:33:56 12/15/19 20 12/16/2019 sjogr en antib ashish panel , serum ss-B Ab <1.0 NEG ai <1.0 neg normal TEST PERFO RMED AT: [facility] [address] [facility] [address] EVA Joshi MD Not Available [facility] [address] [place] [address], [address], 12/16/2019 14:33:56 12/15/19 20 12/16/2019 thyro id panel , serum thyroid peroxidase Ab 1 IU/mL <9 normal TEST PERFO RMED AT: [facility] [address] [facility] [id number] EVA Joshi MD Not Available [facility] [address] [place] [address], [address], 12/16/2019 15:14:21 12/15/19 20 12/16/2019 thyro id panel , serum thyroglobuli n Ab <1 IU/mL < or = 1 normal TEST PERFO RMED AT: [facility] [facility] [place] [facility] [phone] EVA Joshi MD Not Available [facility] [address] [place] [address], [address], 12/16/2019 15:14:21 12/15/19 20 12/17/2019 ccp (cycl ic citru llina yadira pepti de) iga+i gg, serum anti-ccp <16 units normal Refer ence Range Negat kevin: <20 Weak Posit kevin: 20-39 Moder ate Posit kevin: 40-59 Stron g Posit kevin: >59 TEST PERFO RMED AT: [facility] [address] [facility] [place] [address] EVA Joshi MD Not Available [facility] [address] [place] [address], [address], 12/17/2019 02:31:52 12/15/19 20 12/17/2019 SHAHLA (anti [...] be consi dered . Anti- Cele-1 antib ashsih shoul d be consi dered for clini sav suspe cted infla mmato ry myopa adelina . AC-0: Negat kevin Inter natio nal Conse nsus on SHAHLA Patte rns (http s://d oi.or g/10. 5155/ [facility]- 2017- 0052) For addit ional infor salvatore gunter e refer to http: //[facility] willis.Que stDia gnost ics.c om/fa q/FAQ 177 (This link is being provi ded for infor matio nal/ educa karlee l purpo ses only. ) TEST PERFO RMED AT: [facility] [place] [address] [place] [address] EVA Joshi MD Not Available [facility] [address] [place] [address], [place], [address], 12/17/2019 20:24:27 10/03/20 17 10/03/2017 CT, cervi avinash spine , w/o contr ast [facility] [address] [place] [address] Vickie gaytan Name: FERMIN gaytan : 89 [...] fied. The visual ized spinal cord and cell builder ior fossa of the brain are normal [...] lindquist MD on 2016 1:29 PM rowenLewis [facility] [address] [place], [address], 10/08/2017 12:55:54 12/11/19 20 04/09/2017 CT, cervi avinash spine , w/o contr ast No observ ation record ed. BARCODE [facility] [address] [place], [address], 12/11/2019 10:01:47 12/11/19 20 04/09/2017 CT, cervi avinash spine , w/o contr ast No observ ation record ed. BARCODE [facility] [address] [place], [address], 12/11/2019 10:02:40 09/06/20 21 06/06/2021 MRI, cervi avinash spine , w/o contr ast No observ ation record ed. BARCODE Not Available 2020 09:43:13 10/05/20 21 09/08/2021 CT, cervi avinash spine , w/o contr ast No observ ation record ed. JOAO Reyes (Centralized Scheduling) [address] [place] [address] , [place], [address], 10/07/2021 11:52:54 Result Notes Documentation Provider Name and Address Organization Details Recorded Time Ct, Cervical Spine, W/o Contrast : [facility] [address] [place] [id number] Patient Name: FERMIN DEVRIES Patient : 1965 [...] By: Bartolo Madrid MD A BENAVIDEZ MD [address] [place] [address], [address] 10/08/2017 12:55:54 Problems Name Problem SNOMED Code Status Onset Date Resolution Date Notes Provider Name and Address Organization Details Recorded Time Degenerat ion of cervical intervert ebral disc 65666017 Active 2015 From Automated Load;Provi chago: Shelley Estevez;Sta tus: Active Not Available [facility] 6 08:00:27 Cervical spondylos is 570999936 Active 2015 From Automated Load;Provi chago: Velma Benavidez;Sta tus: Active Not Available [facility] 6 08:00:27 Cervical spondylos is with radiculop athy Active 2015 From Automated Load;Provi chago: Velma Benavidez;Sta tus: Active Not Available [facility] 7 02:42:32 Problem Notes None recorded. Procedures Surgical History Date Name Laterality Status Provider Name and Address Organization Details Recorded Time 11/07/19 17 Neck Surgery completed [facility] 12/11/2016 14:07:54 Appendectomy completed [facility] 10/18/2016 14:39:47 Cholecystectomy completed [facility] 10/18/2016 14:40:04 Other completed [facility] 10/18/2016 14:40:46 Hysterectomy/revise vagina completed [facility] 10/18/2016 14:41:03 Unlisted procedure breast completed [facility] 10/18/2016 14:41:22 Imaging Results None recorded. Procedure Notes None recorded. Medical Equipment None Reported. Allergies Allergen ID Allergen Name Allergen Category Reaction Reaction Severity Criticality Documentation Date Start Date Code Code System Note Provider Name and Address Organization Details Recorded Time 128356 Tylenol medicatio n Not available Not available Not available 09/28/20162015 3 RxNorm Comme nt: Creat ed By: Russ Mercadoa yadira Date: 2015 10:01 :09 AM; Not Available [facility] 6 09:43:19 014092 Product containin g penicilli n (product) medicatio n Not available Not available Not available 09/28/20162015 90412 8001 SNOMED Comme nt: Creat ed By: Russ Mercadoa yadira Date: 2015 10:00 :53 AM; Not Available [facility] 6 10:21:54 082583 codeine medicatio n Not available Not available Not available 09/05/2021 2670 RxNorm [facility] 1 14:02:38 Medications Name Sig Start Date [...] active Not Available Not Available Not Available [place] 5 mg-325 mg tablet Take 1 tablet [...] Address Organization Details Last Updated DateTime 0 09603.7 7 g 36.7 kg/m2 162.56 cm 18 /min 85 /min 120/73 mm[Hg] Lindy Ace [facility] 0 10:36:14 Date Recorded Body height Provider Name an d Address Organization Details Last Updated DateTime 04/27/2020 162.56 cm JAVAN RAMSEY, EARLY CHILDHOOD WORKER [address] [place], [address], [facility] 04/27/2020 13:33:00 Date Recorded Body height Body mass index (BMI) Body weight Systolic And Diastolic Provider Name and Address Organization Details Last Updated DateTime 06/25/2017 162.56 cm 33.5 kg/m2 90284.51 g 114/70 mm[Hg] Yesi Porter [facility] 06/25/2017 13:24:53 Date Recorded Body height Body mass index (BMI) Body weight Heart rate Systolic And Diastolic Provider Name and Address Organization Details Last Updated DateTime 09/05/2021 162.56 cm 36 kg/m2 11567.4 g 92 /min 131/79 mm[Hg] Oliva Allen [facility] 09/05/2021 14:02:21 Date Recorded Body height Body mass index (BMI) Body weight Systolic And Diastolic Provider Name and Address Organization Details Last Updated DateTime 10/03/2017 162.56 cm 33.5 kg/m2 96284.51 g 130/66 mm[Hg] Yesi Porter [facility] 10/03/2017 14:20:42 Social History Question Answer Notes LastModified by Organizat ion Details LastModified Time Tobacco Smoking Status Never Smoker Yesi German [facility] 10/18/2016 14:42:09 What Was The Date Of Your Most Recent Tobacco Screening? 12/15/2019 [email or web address] Information not available 12/15/2019 How Much Tobacco Do You Smoke? No [email or web address] Information not available 12/15/2019 How Many Years Have You Smoked Tobacco? 0 [email or web address] Information not available 12/15/2019 Sex: Unknown Functional Status Question Answer Note LastModified by Organizat ion Details LastModified Time Do you or have you ever used smokeless tobacco? Never used smokeless tobacco [email or web address] Information not available 12/15/2019 Do you or have you ever used e-cigarettes or vape? Never used electronic cigarettes [email or web address] Information not available 12/15/2019 Mental Status None recorded. Family History Relationship Description Onset Age of this Age Resolved Age Notes LastModified by Organization Details LastModified Time Mother Cataract [email or web address] Not available 1 12/03/2016 14:20:50 Father Myocardial infarction [email or web address] Not available 12/25 14:30:44 Medical History Condition [...] ICD10 Code Diagnosis IMO Codes Diagnosis Note [id number] KRISHNA GIL MD NEUROLOGY [facility] [address] [place] [address] 10/18/2016 13:42:42 10/19/2016 08:06:37 Cervical radiculopathy 36095179 M54.12 Cervical s pondylosis with radiculopathy 107606586 M47.22 [id number] VELMA BENAVIDEZ MD NEUROSURG [facility] [address] [place] [address] 10/18/2016 14:29:12 10/19/2016 14:14:15 Cervical spondylosis 855209742 M47.882 [id number] CORA MAHAN PA-C [facility] [address] [place] [address] 11/13/2016 12:58:40 11/13/2016 13:57:49 Cervical radiculopathy 26424374 M54.12 Low back pain 064214693 M54.5 [id number] VELMA BENAVIDEZ MD [facility] [address] [place] [address] 12/11/2016 12:50:59 12/11/2016 14:40:06 Cervical spondylosis with radiculopathy 939113244 M47.22 [id number] JACQUI MOSLEY MD OPHTHALMO [address] [place] [address] 12/25/2016 13:39:27 12/27/2016 09:28:16 Diplopia 44459853 H53.2 Presbyopia 75766907 H52. 4 [id number] VELMA BENAVIDEZ MD [facility] [address] [place] [address] 03/12/2017 13:14:24 03/12/2017 14:22:08 Cervical spondylosis with radiculopathy 196131001 M47.22 [id number] VELMA BENAVIDEZ MD [facility] [address] [place] [address] 04/25/2017 11:23:28 04/25/2017 13:03:07 Cervical spondylosis with radiculopathy 417895993 M47.22 [id number] VELMA BENAVIDEZ MD [facility] [address] [place] [address] 06/25/2017 12:36:13 06/25/2017 14:17:37 Cervical spondylosis with radiculopathy 407660278 M47.22 Cervical spondylosis 387 412286 M47.787 [id number] VELMA BENAVIDEZ MD [facility] [address] [place] [address] 10/03/2017 13:59:12 10/03/2017 15:37:26 Cervical spondylosis 865504374 M47.871 [id number] JAVAN RAMSEY APRN [facility] [address] [address] 12/15/2019 09:54:18 12/15/2019 10:56:54 Pain of multiple joints 56790469 M25.50 chronic and recurring with worsening myalgia [...] to fibromyalg ia syndrome and oa Xerostomia 37643537 K11. 7 severe dry mouth; two cavities before age 52; teeth falling out now; dentist mentions concerns Fatigue 46403738 R53.83 worsening overall will assess thyroid panel and hepatitis panel to assess for further systemic disease [id number] JAVAN RAMSEY APRN [facility] [address] [place] [address] 04/27/2020 08:12:04 04/27/2020 14:05:49 Pain of multiple joints 52240474 M25.50 chronic and recurring with worsening myalgia [...] to fibromyalg ia syndrome and oa Xerostomia 98391126 K11. 7 severe dry mouth; two cavities before age 52; teeth falling out now; dentist mentions concerns Fatigue 36575536 R53.83 worsening overall will assess thyroid panel and hepatitis panel to assess for further systemic disease Fibromyalgia 769980900 M 79.7 chronic and recurring with worsening [...] outcome in 3 months or sooner prn [id number] MATTHEW DONAHUE PA-C [facility] [address] [facility] [address] [place] [address] 09/05/2021 12:53:38 09/06/2021 09:26:09 Cervical radiculopathy 51847106 M54.12 Health Concerns Section Related Observation LastModified by Organization Detai ls LastModified Time None Recorded Concern Status LastModified by Organization Details LastModified Time None Recorded Advance Directives Directive None Recorded Payers Insurance Date Sequence Insurance Name Policy Number Policy Esteban Covered Member ID Esteban Member ID Guarantor Name 09/04/2021 3 [place] [employer]GRAM [id number] Fermin Devries [id number] Fermin Devries 09/16/2024 1 [place] [id number] Ja Devries [id number] Fermin Devries 09/04/2021 2 [place] Fermin Devries [id number] Fermin Devries Notes Date Note Type [...] filed for long-term disability. VELMA BENAVIDEZ MD [address] [place] [address], [address], [facility] 06/25/2017 14:03:07 10/03/2017 text/html Dear Dr. Mason, [...] She sees Dr. Krishna. She went to [facility] in July and no surgical recommendation was made. She continues to wear her bone stimulator. She wears a collar at night. VELMA BENAVIDEZ MD [address] [place] [address], [address], [facility] 10/03/2017 15:02:34 12/15/2019 text/html ROS as noted [...] and all others are negative JAVAN RAMSEY, EARLY CHILDHOOD WORKER [address] [place] [address], [address], [facility] 12/27/2019 12:58:43 04/27/2020 text/html ROS as noted [...] and all others are negative JAVAN RAMSEY, EARLY CHILDHOOD WORKER [address] [place], [address], [facility] 04/27/2020 13:38:23 09/05/2021 text/html ROS as noted in the HPI Ms. Devries is a 56yo female with history of asthma, COPD, osteoporosis, chronic neck pain, C5-[address] Benavidez November 2016 who presents today to our office for recheck of neck pain, upper extremity pain, last seen here 10/03/17, [facility]. She describes pain in her neck which radiates into her left shoulder, left upper extremity mcfp to her elbow. Numbness and tingling on [...] she required hospitalization. She also talked to [facility] back in 2017 and also did not [...] was immediately postop. MATTHEW DONAHUE PA-C [address] [place], [address], [facility] 09/05/2021 14:57:55 OBGyn Episode No OBEpisode recorded.
--- OUTSIDE RECORDS SUMMARY | 2025-10-28 22:19 | XMS_ITS | Encounter Summary ---
Author Organization [employer] ([place], [place], [place], [place], [place]) Address [address] [place] [address] Care Team Providers Care Nuclear Design Engineer Name Role Phone Unavailable Primary Care Provider Unavailabl e Encounter Details Date Type Department Care Team (Late st Contact Info) Description 03/17/2019 Transcribed Document [facility] [place] [facility] [place] [address] ProviderDarrell MD [address] [place] [address] Social History Tobacco Use Types Packs/Day Years [...] Dr. Janes Mason Electronically signed by [employer] [facility] [employer] Wafer [employer]aker [employer]ner at 02/18/2023 4:50 PM CDT documented in this encounter Plan of Treatment Not on file documented as of this encounter Visit Diagnoses Not on filedocumented in this encounter
--- OUTSIDE RECORDS SUMMARY | 2025-10-28 22:19 | XMS_ITS | Clinical Summary ---
Author Organization [facility] Address [address] [id number] Care Team Providers Care Television Anchor Name Role Phone Janes Mason MD Primary Care Provider [phone] Allergies Active Allergy Reactions Criticality Noted Date Comments Acetaminophen GI Intolerance 12/01/2015 Acetaminophen-Codeine Unknown - Low Severity Codeine GI Intolerance 10/13/2021 Penicillins Other (See Comments) ,Unknown - Low Severity 11/13/2012 Medications pregabalin (Lyrica) 100 MG capsule Every 8 (Eight) Hours. Active HYDROcodone-acet aminophen (Hampton) 5-325 MG per tablet Hampton 5 mg-325 mg tablet Take 1 tablet [...] Payer (Ef fective 2019-Present) Name:Darshana Barr Member ID:[id number] Relation to Subscriber:Self Name:Darshana Barr Subscriber ID:[id number] Payer ID:[id number] Group ID:Not on file Type:Not on file Address: [address] Care Teams Television Anchor Relationship Specialty Start Date End Date Janes Mason MD [address] [place] [address] PCP - General Family Medicine 07/11/21
--- OUTSIDE RECORDS SUMMARY | 2025-10-28 22:19 | XMS_ITS | Encounter Summary ---
Author Organization [employer] ([place], [place], [place], [place], [place]) Address [address] [place] [address] Care Team Providers Care Electronics Inspector Name Role Phone Unavailable Primary Care Provider Unavailabl e Encounter Details Date Type Department Care Team (Late st Contact Info) Description 10/12/2019 Transcribed Document [facility] [place] [facility] [place] [address] ProviderDarrell MD [address] [place] [address] Social History Tobacco Use Types Packs/Day Years Used Date Smoking Tobacco: Never Assessed Comments Unknown Sex and Gender Information Value Date Recorded Sex Assigned at Not on file Legal Sex Female 6:16 PM CDT Gender Identity Not on file Sexual Orientation Not on file documented as of this encounter Miscellaneous Notes * Cerner Conversion Note - Historical ProviderMD - 10/12/2019 2:22 PM REGIONAL VICE PRESIDENT SURGICAL SALES DATE OF ADMISSION: 10/12/2019 Darshana Barr is [...] will discuss it in the next visit. /[id number] Pepe Krishna MD, BLAKE Pain Certified KR/AQ / KR / MODL CC: Janes Mason MD documented in this encounter Plan of Treatment Not on file documented as of this encounter Visit Diagnoses Not on filedocumented in this encounter
--- OUTSIDE RECORDS SUMMARY | 2025-10-28 22:19 | XMS_ITS | Encounter Summary ---
Author Organization [employer] ([place], [place], [place], [place], [place]) Address [address] [place] [address] Care Team Providers Care Photo Technician Name Role Phone Unavailable Primary Care Provider Unavailabl e Encounter Details Date Type Department Care Team (Late st Contact Info) Description 07/17/2019 Transcribed Document [facility] [place] [facility] [place] [address] ProviderDarrell MD [address] [place] [phone] Social History Tobacco Use Types Packs/Day Years [...] Lyrica 100 mg 3 times daily and [place] 7.5/325 mg 3 times daily. The patient [...] with alcohol, or self-escalate it. 2. Continue [place] 7.5/325 mg 3 times daily as needed. [...]
--- OUTSIDE RECORDS SUMMARY | 2025-10-28 22:19 | XMS_ITS | Encounter Summary ---
Author Organization [employer] ([place], [place], [place], [place], [place]) Address [address] [place] [address] Care Team Providers Care Orchard Manager Name Role Phone Unavailable Primary Care Provider Unavailabl e Encounter Details Date Type Department Care Team (Late st Contact Info) Description 09/17/2019 Transcribed Document [facility] [place] [facility] [place] [address] Darrell Flores MD [address] [place] [phone] Social History Tobacco Use Types Packs/Day Years Used Date Smoking Tobacco: Never Assessed Comments Unknown Sex and Gender Information Value Date Recorded Sex Assigned at Not on file Legal Sex Female 6:16 PM CDT Gender Identity Not on file Sexual Orientation Not on file documented as of this encounter Miscellaneous Notes * Cerner Conversion Note - Historical ProviderMD - 09/17/2019 1:43 PM MICA INSPECTOR DATE OF ADMISSION: 09/17/2019 HISTORY: This is [...] 1 to 2 weeks to re-evaluate her. /[id number] Pepe Krishna MD, BLAKE Pain Certified EN/MIRIAN / EN / MODL CC: Janes Mason M.D. Electronically signed by [facility], [facility] Conversion Film Rental Clerk Cerner at 02/18/2023 5:03 PM CDT documented in this encounter Plan of Treatment Not on file documented as of this encounter Visit Diagnoses Not on filedocumented in this encounter
--- OUTSIDE RECORDS SUMMARY | 2025-10-28 22:19 | XMS_ITS | Encounter Summary ---
Author Organization [employer] ([place], [place], [place], [place], [place]) Address [address] [place] [address] Care Team Providers Care Mail Truck Driver Name Role Phone Unavailable Primary Care Provider Unavailabl e Encounter Details Date Type Department Care Team (Late st Contact Info) Description 01/18/2020 Transcribed Document [facility] [place] Family Medicine [address] [place] [address] ProviderDarrell MD [address] [place] [address] Social History Tobacco Use Types Packs/Day Years [...] her Lyrica 3 times daily and her [place] 3 times daily as needed. The patient says that the use of the medication makes her more functional. She denies any adverse effects including toxic effect, sedation, driving problems, or GI problems. The patient says she did go to the Rheumatology appointment and had lots of blood work done, but has not gotten the results yet and has a followup with the para educator in February. REVIEW OF SYSTEMS: The patient [...] 100 mg 3 times daily. 3. Continue [place] 7.5/325 mg 3 times daily as needed. [...] medications for this patient's treatment plan today. /[id number] FLOYD Mullins/MIRIAN / PITA / MODL CC: MD Nneka Alcantar APRN Electronically signed by [facility] Conversion Grant Manager Cerner at 02/18/2023 4:48 PM CDT documented in this encounter Plan of Treatment Not on file documented as of this encounter Visit Diagnoses Not on filedocumented in this encounter
--- OUTSIDE RECORDS SUMMARY | 2025-10-28 22:19 | XMS_ITS | Encounter Summary ---
Author Organization [employer] ([place], [place], [place], [place], [place]) Address [address] [place] [address] Care Team Providers Care Advertising Analyst Name Role Phone Unavailable Primary Care Provider Unavailabl e Encounter Details Date Type Department Care Team (Late st Contact Info) Description 08/17/2019 Transcribed Document [facility] [place] [address] ProviderDarrell MD [address] [place] [address] Social History Tobacco Use Types Packs/Day Years [...] Dr. Janes Mason Electronically signed by [facility] Conversion A P Supervisor Cerner at 02/18/2023 4:52 PM CDT documented in this encounter Plan of Treatment Not on file documented as of this encounter Visit Diagnoses Not on filedocumented in this encounter
--- OUTSIDE RECORDS SUMMARY | 2025-10-28 22:19 | XMS_ITS | Encounter Summary ---
Author Organization [employer] ([place], [place], [place], [place], [place]) Address [address] [place] [address] Care Team Providers Care Hand Welt Butter Name Role Phone Unavailable Primary Care Provider Unavailabl e Encounter Details Date Type Department Care Team (Late st Contact Info) Description 10/30/2018 Transcribed Document [facility] [place] [facility] [place] [address] Darrell Flores MD [address] [place] [address] [phone] Social History Tobacco Use Types Packs/Day Years Used Date Smoking Tobacco: Never Assessed Comments Unknown Sex and Gender Information Value Date Recorded Sex Assigned at Not on file Legal Sex Female 6:16 PM CDT Gender Identity Not on file Sexual Orientation Not on file documented as of this encounter Miscellaneous Notes * Cerner Conversion Note - Historical ProviderMD - 10/30/2018 1:58 PM BRIM AND CROWN PRESSER DATE OF ADMISSION: 10/30/2018 HISTORY OF PRESENT [...] patient recently followed back up with her mold maintenance technician and states that she was diagnosed with COPD stage 2. She states that they are starting on Symbicort and Spiriva to try to help her with it. The patient states that also they did tell her that she does have a small lung nodule in her lower lobe and that will heal itself. The patient does continue to take [place] 7.5/325 mg 2-3 times a day as [...] radiculopathy. 4. Cervical spondylosis. PLAN: 1. Refill [place] 7.5/325 mg 2-3 times a day as [...]
--- OUTSIDE RECORDS SUMMARY | 2025-10-28 22:20 | XMS_ITS | Encounter Summary ---
Author Organization [employer] ([place], [place], [place], [place], [place]) Address [address] [place] [address] Care Team Providers Care Guest Relations Agent Name Role Phone Unavailable Primary Care Provider Unavailabl e Encounter Details Date Type Department Care Team (Late st Contact Info) Description 01/06/2021 Transcribed Document [facility] [place] [facility] [place] [address] ProviderDarrell MD [address] [place] [address] [phone] Social History Tobacco Use Types Packs/Day Years Used Date Smoking Tobacco: Never Assessed Comments Unknown Sex and Gender Information Value Date Recorded Sex Assigned at Not on file Legal Sex Female 6:16 PM CDT Gender Identity Not on file Sexual Orientation Not on file documented as of this encounter Miscellaneous Notes * Cerner Conversion Note - Historical ProviderMD - 01/06/2021 12:16 PM PRICING COORDINATOR Pre Procedure Adult Entered On: 01/06/2021 12:18 EST Performed On: 01/06/2021 12:16 EST by Ligia Walter RN Height and Weight, Clinical Dosing Height Source : Stated Height Entry Format : [place] Height, Feet : 5 ft(Converted to: 152 cm, 60 Inch) Height, Inches : 4 Inch(Converted to: 0 ft 4 Inch, 10.16 cm) Clinical Height : 162.56 cm Weight Source : Standing scale Weight Entry Format : [place] Clinical Dosing Weight : 99.15 kg Weight, Pounds : 218 lb Weight, Ounces : 2 oz Body Surface Area (BSA) : 2.03 m2 Body Mass Index : 37.5 kg/m2 (HI) [place] Body Weight : 54 kg Ligia Walter [...] Ligia Walter RN - 01/06/2021 12:16 EST [place] Suicide Severity Rating Scale (C-SSRS) CSSRS Past [...] Info Preferred Name : wilfred Support Person/Patient Housekeeping And Laundry Team Leader : Yes Support Person/Pt Rep Name : Chrissy Barr, Marina Perez, mother Support Person/Pt Rep Contact Information : [phone] Want Family/Rep/Phys Notified of Admit : No Emergency Contact #1 : chrissy Emergency Contact #1 Emergency Contact #1 Relationship : spouse Emergency Contact #2 : Emergency Contact #2 Phone Number : Emergency Contact #2 Relationship : Primary Language : Cymro Preferred Communication Mode : Verbal Communication Barrier : None Clerk Guide Needed : No Ligia Walter RN - [...] Scale Risk Level : 0-24 Low Risk [place] Fall Interventions : Adequate lighting, Non-slip footwear, Wheels locked Ligia Walter RN - 01/06/2021 12:16 EST Valuables and Belongings Valuables and Belongings : Clothing, Personal items Clothing : Common streetwear Clothing Disposition : Bedside Personal Items : Cell phone, Purse Personal Items Disposition : Bedside Ligia Walter RN - 01/06/2021 12:16 EST Electronically signed by [facility] Conversion Rn Heart Cerner at 02/18/2023 4:52 PM CDT documented in this encounter Plan of Treatment Not on file documented as of this encounter Visit Diagnoses Not on filedocumented in this encounter
--- OUTSIDE RECORDS SUMMARY | 2025-10-28 22:20 | XMS_ITS | Encounter Summary ---
Author Organization [employer] ([place], [place], [place], [place], [place]) Address [address] [place] [address] Care Team Providers Care Project Finance Analyst Name Role Phone Unavailable Primary Care Provider Unavailabl e Encounter Details Date Type Department Care Team (Late st Contact Info) Description 01/06/2021 Transcribed Document [facility] [place] [facility] [place] [address] Darrell Flores MD [address] [place] [address] [phone] Social History Tobacco Use Types Packs/Day Years Used Date Smoking Tobacco: Never Assessed Comments Unknown Sex and Gender Information Value Date Recorded Sex Assigned at Not on file Legal Sex Female 6:16 PM CDT Gender Identity Not on file Sexual Orientation Not on file documented as of this encounter Miscellaneous Notes * Cerner Conversion Note - Darrell Flores MD - 01/06/2021 1:10 PM RETAIL SALESWORKER Patient: FERMIN BARR Age: 55 Years Sex: [...]
--- OUTSIDE RECORDS SUMMARY | 2025-10-28 22:20 | XMS_ITS | Encounter Summary ---
Author Organization [employer] ([place], [place], [place], [place], [place]) Address [address] [place] [address] Care Team Providers Care Platform Power Technician Name Role Phone Unavailable Primary Care Provider Unavailabl e Encounter Details Date Type Department Care Team (Late st Contact Info) Description 11/24/2020 Transcribed Document [facility] [place] [facility] [place] [address] ProviderDarrell MD [address] [place] [address] [phone] Social History Tobacco Use Types Packs/Day Years Used Date Smoking Tobacco: Never Assessed Comments Unknown Sex and Gender Information Value Date Recorded Sex Assigned at Not on file Legal Sex Female 6:16 PM CDT Gender Identity Not on file Sexual Orientation Not on file documented as of this encounter Miscellaneous Notes * Cerner Conversion Note - Historical ProviderMD - 11/24/2020 3:48 PM KAIAWHINA KURA KAUPAPA MAORI DATE OF ADMISSION: 11/24/2020 HISTORY OF PRESENT [...] visit and the patient has been afebrile. /[id number] Pepe Krishna MD, BLAKE Pain Certified KR/AQ / KR / MODL CC: REYES BRONSON MD documented in this encounter Plan of Treatment Not on file documented as of this encounter Visit Diagnoses Not on filedocumented in this encounter
--- OUTSIDE RECORDS SUMMARY | 2025-10-28 22:20 | XMS_ITS | Encounter Summary ---
Author Organization [employer] ([place], [place], [place], [place], [place]) Address [address] [place] [address] Care Team Providers Care Guide Name Role Phone Unavailable Primary Care Provider Unavailabl e Encounter Details Date Type Department Care Team (Late st Contact Info) Description 10/17/2020 Transcribed Document [facility] [place] [address] ProviderDarrell MD [address] [place] [address] Social History Tobacco Use Types Packs/Day [...] Darrell Flores MD - 10/17/2020 11:07 PM GLOVE FORMER [facility] [place] [address] MOMO FERMINMARY KATE SAUNDERS :1965 [...] with new or worsening symptoms. Where: [address] [facility] [address] [place] [address] [facility] (1) Follow Up with REYES BRONSON When Within 2 to 3 days Where: [address] [facility] [address] [facility], [address] [place] [id number] [facility] (1) Allergies Tylenol with Codeine (Vomiting, Nausea, Chest pain) penicillin (Unknown) Immunizations This Visit No Immunizations Found Medications What How Much When Instructions Next Dose acetaminophen-hydrocodone ([place] 7.5 mg-325 mg oral tablet) 1 Tablet(s) [...] range between ( 0.0 and 7.0 ) [place] #: 0.83 K/uL -- Normal range between ( 0.16 and 1.00 ) [place] #: 0.01 x10(3)/uL -- Normal range between ( 0.00 and 0.80 ) [place] %: 4.3 % -- Normal range between [...] these instructions at home: Medicines ??? Take zqml-qqy-szocsby and prescription medicines only as told by [...] and water are not available, use hand sack sewer machine. Contact a health care provider if: ??? [...] 10/21/2006 Document Revised: 06/18/2019 Document Reviewed: 06/18/2019 [employer] Patient Education ?? 2020 [employer] Emergency Awareness and Preventative Care [...] Assistance with quitting is available by contacting 8-641-XEVINOW. This is a free resource providing counseling, support, and referral. Or you may contact your personal physician. [place] Suicide Prevention Lifeline: The National Suicide Prevention [...] was given the opportunity to ask questions. Patient/Metal Model Builder Name: Patient/Metal Model Builder Signature: Relationship to Patient: Clinician/Hospital Metal Model Builder Signature: Please Provide a Telephone Number Where You Can Be Reached: Is it Permissible To Leave a Message? Date: documented in this encounter Plan of Treatment Not on file documented as of this encounter Visit Diagnoses Not on filedocumented in this encounter
--- OUTSIDE RECORDS SUMMARY | 2025-10-28 22:20 | XMS_ITS | Encounter Summary ---
Author Organization [employer] ([place], [place], [place], [place], [place]) Address [address] [place] [address] Care Team Providers Care Manager Of Selection And Assessment Name Role Phone Unavailable Primary Care Provider Unavailabl e Encounter Details Date Type Department Care Team (Late st Contact Info) Description 01/06/2021 Transcribed Document [facility] [place] [address] [place] [address] ProviderDarrell MD [address] [place], [place] [phone] Social History Tobacco Use Types Packs/Day Years Used Date Smoking Tobacco: Never Assessed Comments Unknown Sex and Gender Information Value Date Recorded Sex Assigned at Not on file Legal Sex Female 6:16 PM CDT Gender Identity Not on file Sexual Orientation Not on file documented as of this encounter Miscellaneous Notes * Cerner Conversion Note - Darrell ProviderMD - 01/06/2021 12:30 PM ASBESTOS PIPE SUPERVISOR [facility] [employer] PreOp Summary Primary Physician: SEA OLSON MD Finalized Date/Time: 01/06/21 12:22:57 Pt. Name: FERMIN BARR/Sex: 1965 Female Med Rec #: [id number] Physician: SEA OLSON MD Financial #: [id number] Pt. Type: O Room/Bed: END/ Admit/Disch: 01/06/21 11:16:00 - Institution: [facility] [employer] PreOp Case Times Entry 1 In Preop 01/06/21 12:05:00 Ready for Holding n/a Room Patient Ready for n/a Surgery Patient Out of Preop 01/06/21 12:22:00 Patient Out of n/a Holding Room Last Modified By: Ligia Walter RN 01/06/21 12:22:55 Finalized By: Ligia Walter, RN Document Signatures Signed By: Ligia Walter RN 01/06/21 12:22 Electronically signed by [facility] Conversion Blacksmith Helper Cerner at 02/18/2023 4:51 PM CDT documented in this encounter Plan of Treatment Not on file documented as of this encounter Visit Diagnoses Not on filedocumented in this encounter
--- OUTSIDE RECORDS SUMMARY | 2025-10-28 22:20 | XMS_ITS | Encounter Summary ---
Author Organization [employer] ([place], [place], [place], [place], [place]) Address [address] [place] [address] Care Team Providers Care Shirring Tender Name Role Phone Unavailable Primary Care Provider Unavailabl e Encounter Details Date Type Department Care Team (Late st Contact Info) Description 01/04/2021 Transcribed Document [facility] [place] [address] ProviderDarrell MD [address] [place] [address] [phone] Social History Tobacco Use Types Packs/Day Years Used Date Smoking Tobacco: Never Assessed Comments Unknown Sex and Gender Information Value Date Recorded Sex Assigned at Not on file Legal Sex Female 6:16 PM CDT Gender Identity Not on file Sexual Orientation Not on file documented as of this encounter Miscellaneous Notes * Cerner Conversion Note - Darrell ProviderMD - 01/04/2021 2:39 PM STUDENT LOAN COUNSELOR DATE OF SERVICE: 12/21/2020 The patient's height [...] for oxygen therapy. Clinical correlation is suggested. /[id number] MD XIAO Roberson/MIRIAN / XIAO / MODL /[id number] Electronically signed by [facility], [facility] Conversion Registered Medical Transcriptionist Cerner at 02/18/2023 5:14 PM CDT documented in this encounter Plan of Treatment Not on file documented as of this encounter Visit Diagnoses Not on filedocumented in this encounter
--- OUTSIDE RECORDS SUMMARY | 2025-10-28 22:20 | XMS_ITS | Clinical Summary ---
Author Organization [facility] Address [address] [place] [address] Care Team Providers Care Airplane Rental Clerk Name Role Phone Janes Mason MD Primary Care Provider [phone] Allergies Active Allergy Reactions Criticality Noted Date [...] to complete this topic Insurance Care Teams Airplane Rental Clerk Relationship Specialty Start Date End Date Janes Mason MD [address] [place] [address] PCP - General Family Medicine 11/13/12
--- OUTSIDE RECORDS SUMMARY | 2025-10-28 22:20 | XMS_ITS | Clinical Summary ---
Author Organization [employer] ([place], [place], [place], [place], [place]) Address [address] [place] [address] Care Team Providers Care Rhia Name Role Phone Unavailable Primary Care Provider [...] HYDROcodone-elaine taminophen (NORCO) 5-325 mg per tablet [place] 5 mg-325 mg tablet Take 1 tablet [...] file Group ID:[id number] Type:Not on file Address: [facility] [id number] [place] [id number]
--- OUTSIDE RECORDS SUMMARY | 2025-10-28 22:20 | XMS_ITS | Referral Summary ---
Author Organization [employer] ([place], [place], [place], [place], [place]) Address [address] [place] [address] Care Team Providers Care Emt/Dispatcher Name Role Phone Unavailable Primary Care Provider [...] HYDROcodone-elaine taminophen (NORCO) 5-325 mg per tablet [place] 5 mg-325 mg tablet Take 1 tablet [...]
--- OUTSIDE RECORDS SUMMARY | 2025-10-28 22:20 | XMS_ITS | Encounter Summary ---
Author Organization [employer] ([place], [place], [place], [place], [place]) Address [address] [place] [address] Care Team Providers Care Environmental Planner Name Role Phone Unavailable Primary Care Provider Unavailabl e Encounter Details Date Type Department Care Team (Late st Contact Info) Description 10/17/2020 Transcribed Document [facility] [place] Family Medicine [facility], [facility] [place] [address] ProviderDarrell MD [address] [place] [id number] Social History Tobacco Use Types Packs/Day Years Used Date Smoking Tobacco: Never Assessed Comments Unknown Sex and Gender Information Value Date Recorded Sex Assigned at Not on file Legal Sex Female 6:16 PM CDT Gender Identity Not on file Sexual Orientation Not on file documented as of this encounter Miscellaneous Notes * Cerner Conversion Note - Historical ProviderMD - 10/17/2020 4:38 PM OPERATIONS EXPERT ED Triage Entered On: 10/17/2020 17:34 EST Performed On: 10/17/2020 17:31 EST by Calli Cruz RN ED Triage Across the Room Chief Complaint : Hospitalized at [facility] last week c sepsis/PNA. Saw Gillian Alicia @ Dr. Cheek's office 10/13, had elevated WBCs. Temp today 98.6 - states baseline is 97.1 and she was advised to come to ED. Triage Date/Time : 10/17/2020 17:31 EST Calli Cruz RN - 10/17/2020 17:31 EST DCP GENERIC CODE Tracking Acuity : 3 - Urgent Tracking Group : [facility] ED Calli Cruz RN - [...] 10/17/2020 17:34:28 EST) Problems(Active) Anxiety (SNOMED CT :9880382945 ) Name of Problem: Anxiety ; Recorder: Tracey Mathews RN; Confirmation: Confirmed ; Classification: Medical ; Code: [id number] ; Contributor System: PowerChart ; Last Updated: 11/06/2016 11:42 EST ; Life Cycle Date: 11/06/2016 ; Life Cycle Status: Active ; Vocabulary: SNOMED CT Arthritis (SNOMED CT :7747516 ) Name of Problem: Arthritis ; Recorder: JOSÉ MIGUEL BRADSHAW RN; Confirmation: Confirmed ; Classification: Medical ; Code: 5100277 ; Contributor System: PowerChart ; Last Updated: 09/23/2018 15:39 EST ; Life Cycle Date: 06/18/2018 ; Life Cycle Status: Active ; Vocabulary: SNOMED CT Asthma (SNOMED CT :333566820 ) Name of Problem: Asthma ; Recorder: Tracey Mathews RN; Confirmation: Confirmed ; Classification: Medical ; Code: 652197922 ; Contributor System: PowerChart ; Last Updated: 11/06/2016 11:28 EST ; Life Cycle Date: 11/06/2016 ; Life Cycle Status: Active ; Vocabulary: SNOMED CT Asthma (SNOMED CT :891680734 ) Name of Problem: Asthma ; Recorder: JOSÉ MIGUEL BRADSHAW RN; Confirmation: Confirmed ; Classification: Medical ; Code: 059936174 ; Contributor System: PowerChart ; Last Updated: 06/18/2018 15:03 EDT ; Life Cycle Date: 06/18/2018 ; Life Cycle Status: Active ; Vocabulary: SNOMED CT Cardiomyopathy (SNOMED CT :603601154 ) Name of Problem: Cardiomyopathy ; Recorder: Malgorzata Pemberton RN; Confirmation: Confirmed ; Classification: Medical ; Code: 279026965 ; Contributor System: PowerChart ; Last Updated: 11/07/2016 6:38 EST ; Life Cycle Date: 11/07/2016 ; Life Cycle Status: Active ; Vocabulary: SNOMED CT DDD (degenerative disc disease), cervical (SNOMED CT :369249427 ) Name of Problem: DDD (degenerative disc disease), cervical ; Recorder: Tracey Mathews RN; Confirmation: Confirmed ; Classification: Medical ; Code: 804768200 ; Contributor System: [employer]atech[employer] ; Last Updated: 11/06/2016 11:41 EST ; Life Cycle Date: 11/06/2016 ; Life Cycle Status: Active ; Vocabulary: SNOMED CT Endometriosis (SNOMED CT :5553073986 ) Name of Problem: Endometriosis ; Recorder: Tracey Mathews RN; Confirmation: Confirmed ; Classification: Medical ; Code: 7304857372 ; Contributor System: PowerChart ; Last Updated: 11/06/2016 11:30 EST ; Life Cycle Date: 11/06/2016 ; Life Cycle Status: Active ; Vocabulary: SNOMED CT Fibroids (SNOMED CT :532703258 ) Name of Problem: Fibroids ; Recorder: Tracey Mathews RN; Confirmation: Confirmed ; Classification: Medical ; Code: 314234276 ; Contributor System: PowerChart ; Last Updated: 11/06/2016 11:30 EST ; Life Cycle Date: 11/06/2016 ; Life Cycle Status: Active ; Vocabulary: SNOMED CT GERD - Gastro-esophageal reflux disease (SNOMED CT :1694394425 ) Name of Problem: GERD - Gastro-esophageal reflux disease ; Recorder: Tracey Mathews RN; Confirmation: Confirmed ; Classification: Medical ; Code: 9085534644 ; Contributor System: PowerChart ; Last Updated: 11/06/2016 11:29 EST ; Life Cycle Date: 11/06/2016 ; Life Cycle Status: Active ; Vocabulary: SNOMED CT H/O: depression (SNOMED CT :985032515 ) Name of Problem: H/O: depression ; Recorder: JOSÉ MIGUEL BRADSHAW RN; Confirmation: Confirmed ; Classification: Medical ; Code: 111444401 ; Contributor System: PowerChart ; Last Updated: 06/18/2018 15:07 EDT ; Life Cycle Date: 06/18/2018 ; Life Cycle Status: Active ; Vocabulary: SNOMED CT History of obstructive sleep apnea (IMO :93443388 ) Name of Problem: History of obstructive sleep apnea ; Recorder: SYSTEM, SYSTEM; Confirmation: Confirmed ; Classification: Medical ; Code: 52673810 ; Last Updated: 06/18/2018 15:16 EDT ; Life Cycle Date: 06/18/2018 ; Life Cycle Status: Active ; Vocabulary: IMO Left carpal tunnel syndrome (SNOMED CT :6743090704 ) Name of Problem: Left carpal tunnel syndrome ; Recorder: Tracey Mathews RN; Confirmation: Confirmed ; Classification: Medical ; Code: 2668386438 ; Contributor System: PowerChart ; Last Updated: 11/06/2016 11:43 EST ; Life Cycle Date: 11/06/2016 ; Life Cycle Status: Active ; Vocabulary: SNOMED CT Migraine (SNOMED CT :74434412 ) Name of Problem: Migraine ; Recorder: Tracey Mathews RN; Confirmation: Confirmed ; Classification: Medical ; Code: 51056502 ; Contributor System: PowerChart ; Last Updated: 11/06/2016 11:30 EST ; Life Cycle Date: 11/06/2016 ; Life Cycle Status: Active ; Vocabulary: SNOMED CT Neck pain (SNOMED CT :5804697760 ) Name of Problem: Neck pain ; Recorder: Tracey Mathews RN; Confirmation: Confirmed ; Classification: Medical ; Code: 6478931862 ; Contributor System: PowerChart ; Last Updated: 11/06/2016 11:41 EST ; Life Cycle Date: 11/06/2016 ; Life Cycle Status: Active ; Vocabulary: SNOMED CT PCO - Polycystic ovaries (SNOMED CT :940640065 ) Name of Problem: PCO - Polycystic ovaries ; Recorder: Tracey Mathews RN; Confirmation: Confirmed ; Classification: Medical ; Code: 916784149 ; Contributor System: PowerChart ; Last Updated: 11/06/2016 11:30 EST ; Life Cycle Date: 11/06/2016 ; Life Cycle Status: Active ; Vocabulary: SNOMED CT Pneumonia (SNOMED CT :031865422 ) Name of Problem: Pneumonia ; Recorder: Tracey Mathews RN; Confirmation: Confirmed ; Classification: Medical ; Code: 016479962 ; Contributor System: PowerChart ; Last Updated: 11/06/2016 11:28 EST ; Life Cycle Date: 11/06/2016 ; Life Cycle Status: Active ; Vocabulary: SNOMED CT Sleep apnea (SNOMED CT :709575053 ) Name of Problem: Sleep apnea ; Recorder: JOSÉ MIGUEL BRADSHAW RN; Confirmation: Confirmed ; Classification: Medical ; Code: 171469325 ; Contributor System: PowerChart ; Last Updated: 06/18/2018 15:03 EDT ; Life Cycle Date: 06/18/2018 ; Life Cycle Status: Active ; Vocabulary: SNOMED CT Spinal stenosis of cervical region (SNOMED CT :548168668 ) Name of Problem: Spinal stenosis of cervical region ; Recorder: Tracey Mathews RN; Confirmation: Confirmed ; Classification: Medical ; Code: 656288862 ; Contributor System: PowerChart ; Last Updated: 11/06/2016 11:43 EST ; Life Cycle Date: 11/06/2016 ; Life Cycle Status: Active ; Vocabulary: SNOMED CT Wears glasses (SNOMED CT :966339360 ) Name of Problem: Wears glasses ; Recorder: JOSÉ MIGUEL BRADSHAW RN; Confirmation: Confirmed ; Classification: Medical ; Code: 456372311 ; Contributor System: [employer] ; Last Updated: 06/18/2018 15:01 EDT ; Life Cycle Date: 06/18/2018 ; Life Cycle Status: Active ; Vocabulary: SNOMED CT Diagnoses(Active) Abnormal laboratory findings Date: 10/17/2020 ; Diagnosis Type: Reason For Visit ; Confirmation: Complaint of ; Clinical Dx: Abnormal laboratory findings ; Classification: Medical ; Clinical Service: Non-Specified ; Code: PNED ; Probability: 0 ; Diagnosis Code: [id number] Shortness of breath Date: 10/17/2020 ; Diagnosis Type: Reason For Visit ; Confirmation: Complaint of ; Clinical Dx: Shortness of breath ; Classification: Medical ; Clinical Service: Non-Specified ; Code: PNED ; Probability: 0 ; Diagnosis Code: [id number] ED Height and Weight Height Source : Stated Height Entry Format : [place] Height, Feet : 5 ft(Converted to: 152 cm, 60 Inch) Height, Inches : 4 Inch(Converted to: 0 ft 4 Inch, 10.16 cm) Clinical Height : 162.56 cm Weight Source, ED : Critical estimated dosing weight Weight Entry Format : [place] Weight, Pounds : 250 lb Clinical Dosing Weight : 113.64 kg Body Surface Area (BSA) : 2.15 m2 Body Mass Index : 43 kg/m2 (>HHI) [place] Body Weight (IBW) : 54.3 kg Calli Cruz RN - 10/17/2020 17:31 EST documented in this encounter Plan of Treatment Not on file documented as of this encounter Visit Diagnoses Not on filedocumented in this encounter
--- OUTSIDE RECORDS SUMMARY | 2025-10-28 22:20 | XMS_ITS | Encounter Summary ---
Author Organization [employer] ([place], [place], [place], [place], [place]) Address [address] [place] [address] Care Team Providers Care Infant Teacher Name Role Phone Unavailable Primary Care Provider Unavailabl e Encounter Details Date Type Department Care Team (Late st Contact Info) Description 01/06/2021 Transcribed Document [facility] [place] [address] [place] [address] ProviderDarrell MD [address] [place] [address] [id number] Social History Tobacco Use Types Packs/Day Years Used Date Smoking Tobacco: Never Assessed Comments Unknown Sex and Gender Information Value Date Recorded Sex Assigned at Not on file Legal Sex Female 6:16 PM CDT Gender Identity Not on file Sexual Orientation Not on file documented as of this encounter Miscellaneous Notes * Cerner Conversion Note - Darrell ProviderMD - 01/06/2021 12:45 PM BED TEACHER [facility] PACU Summary Primary Physician: SEA OLSON MD Finalized Date/Time: 01/06/21 13:56:56 Pt. Name: FERMIN BARR/Sex: 1965 Female Med Rec #: [id number] Physician: SEA OLSON MD Financial #: [id number] Pt. Type: O Room/Bed: END/ Admit/Disch: 01/06/21 11:16:00 - 01/06/21 13:55:00 Institution: [facility] PACU Case Times Entry 1 In PACU I 01/06/21 13:10:00 Ready for PACU 01/06/21 13:50:00 Discharge Discharge from PACU 01/06/21 13:56:00 I Last Modified By: Nessa Islas RN 01/06/21 13:56:53 [facility] Endo PACU Case Times Audit 01/06/21 13:56:53 Tour Agent: [id number] Modifier: [id number] <+> 1 Ready for PACU Discharge <+> 1 Discharge from PACU I Finalized By: Nessa Islas RN Document Signatures Signed By: Nessa Islas RN 01/06/21 13:56 documented in this encounter Plan of Treatment Not on file documented as of this encounter Visit Diagnoses Not on filedocumented in this encounter
--- OUTSIDE RECORDS SUMMARY | 2025-10-28 22:20 | XMS_ITS | Encounter Summary ---
Author Organization [employer] ([place], [place], [place], [place], [place]) Address [address] [place] [address] Care Team Providers Care Educational Adviser Name Role Phone Unavailable Primary Care Provider Unavailabl e Encounter Details Date Type Department Care Team (Late st Contact Info) Description 01/04/2021 Transcribed Document [facility] [place] [place] [address] ProviderDarrell MD [address] [place] [id number] Social History Tobacco Use Types Packs/Day Years Used Date Smoking Tobacco: Never Assessed Comments Unknown Sex and Gender Information Value Date Recorded Sex Assigned at Not on file Legal Sex Female 6:16 PM CDT Gender Identity Not on file Sexual Orientation Not on file documented as of this encounter Miscellaneous Notes * Cerner Conversion Note - Darrell ProviderMD - 01/04/2021 2:42 PM SENIOR NETWORK ENGINEER DATE OF SERVICE: 12/21/2020 Height 64 inches [...] was normal. 4. Clinical correlation is suggested. /[id number] Della Ortiz MD HE/AQ / XIAO / MODL /[id number] documented in this encounter Plan of Treatment Not on file documented as of this encounter Visit Diagnoses Not on filedocumented in this encounter
--- OUTSIDE RECORDS SUMMARY | 2025-10-28 22:20 | XMS_ITS | Encounter Summary ---
Author Organization [employer] ([place], [place], [place], [place], [place]) Address [address] [place] [address] Care Team Providers Care Meat Curer Name Role Phone Unavailable Primary Care Provider Unavailabl e Encounter Details Date Type Department Care Team (Late st Contact Info) Description 01/06/2021 Transcribed Document [facility] [place] Counts include 234 beds at the [facility] [place] [address] ProviderDarrell MD [address] [place] [id number] Social History Tobacco Use Types Packs/Day Years Used Date Smoking Tobacco: Never Assessed Comments Unknown Sex and Gender Information Value Date Recorded Sex Assigned at Not on file Legal Sex Female 6:16 PM CDT Gender Identity Not on file Sexual Orientation Not on file documented as of this encounter Miscellaneous Notes * Cerner Conversion Note - Darrell ProviderMD - 01/06/2021 1:08 PM CALIBRATION SPECIALIST [facility] [place] [id number] FERMIN BARR :1965 Visit Time:01/06/2021 What to [...] 24 hours. Follow-Up Appointments Follow Up with SAE OLSON When Only if needed Where: [address] [facility] [address] [place] [id number]- [facility] (1) Medications What How Much [...] times a day. General instructions ??? Take umva-wra-jeajidd and prescription medicines only as told by [...] 07/30/2009 Document Revised: 10/29/2019 Document Reviewed: 03/12/2019 [employer] Patient Education ?? 2020 [employer] Instructions for after EGD with Dilation [...] activities are safe for you. ??? Take dtud-lzv-gnafdnp and prescription medicines only as told by [...] 01/27/2002 Document Revised: 10/24/2018 Document Reviewed: 06/06/2018 [employer] Patient Education ?? 2020 [employer] Emergency Awareness and Preventative Care STROKE [...] Assistance with quitting is available by contacting 1-661-OYKD-NOW. This is a free resource providing counseling, [...] was given the opportunity to ask questions. Patient/Portable Sawmill Operator Name: Patient/Portable Sawmill Operator Signature: Relationship to Patient: Clinician/Hospital Portable Sawmill Operator Signature: Date: Electronically signed by [employer], [facility] Conversion Zipper Sewing Machine Operator Robby at 02/18/2023 5:06 PM CDT documented in this encounter Plan of Treatment Not on file documented as of this encounter Visit Diagnoses Not on filedocumented in this encounter
--- OUTSIDE RECORDS SUMMARY | 2025-10-28 22:20 | XMS_ITS | Encounter Summary ---
Author Organization [employer] ([place], [place], [place], [place], [place]) Address [address] [place] [address] Care Team Providers Care Framing Mechanic Name Role Phone Unavailable Primary Care Provider Unavailabl e Encounter Details Date Type Department Care Team (Late st Contact Info) Description 01/06/2021 Transcribed Document [facility] [place] [facility] [place] [address] ProviderDarrell MD [address] [place], [place] [phone] Social History Tobacco Use Types Packs/Day Years Used Date Smoking Tobacco: Never Assessed Comments Unknown Sex and Gender Information Value Date Recorded Sex Assigned at Not on file Legal Sex Female 6:16 PM CDT Gender Identity Not on file Sexual Orientation Not on file documented as of this encounter Miscellaneous Notes * Cerner Conversion Note - Darrell ProviderMD - 01/06/2021 1:08 PM DISPATCH SUPERVISOR Patient Education Materials Follows: Hemorrhoids Hemorrhoids are [...] times a day. General instructions ??? Take irip-opg-pxlgztm and prescription medicines only as told by [...] 07/30/2009 Document Revised: 10/29/2019 Document Reviewed: 03/12/2019 [employer] Patient Education ? 2020 [employer] Instructions for after EGD with Dilation [...] activities are safe for you. ??? Take jmcd-wcu-cvedyfh and prescription medicines only as told by [...] 01/27/2002 Document Revised: 10/24/2018 Document Reviewed: 06/06/2018 [employer] Patient Education ? 2020 [employer]. documented in this encounter Plan of Treatment Not on file documented as of this encounter Visit Diagnoses Not on filedocumented in this encounter
--- OUTSIDE RECORDS SUMMARY | 2025-10-28 22:20 | XMS_ITS | Encounter Summary ---
Author Organization [employer] ([place], [place], [place], [place], [place]) Address [address] [place] [address] Care Team Providers Care Gun Synchronizer Name Role Phone Unavailable Primary Care Provider Unavailabl e Encounter Details Date Type Department Care Team (Late st Contact Info) Description 10/18/2020 Transcribed Document [facility] [place] Family Medicine [facility] [place] [address] ProviderDarrell MD [facility] [place], [place] [phone] Social History Tobacco Use Types Packs/Day Years Used Date Smoking Tobacco: Never Assessed Comments Unknown Sex and Gender Information Value Date Recorded Sex Assigned at Not on file Legal Sex Female 6:16 PM CDT Gender Identity Not on file Sexual Orientation Not on file documented as of this encounter Miscellaneous Notes * Cerner Conversion Note - Historical ProviderMD - 10/18/2020 9:38 AM GEMOLOGIST CR Chest 2 Vws Ordered: 10/17/2020 Auth (Verified) Reason for Exam: SOA 10/18/2020 08:53 10/18/2020 09:38 (QUANG OLIVA APRN) Reviewed by Provider, No further action required x1 documented in this encounter Plan of Treatment Not on file documented as of this encounter Visit Diagnoses Not on filedocumented in this encounter
--- OUTSIDE RECORDS SUMMARY | 2025-10-28 22:20 | XMS_ITS | Encounter Summary ---
Author Organization Healthcare Address [address] [place] [id number] Care Team Providers Care Shank Faker Name Role Phone Janes Mason MD Primary Care Provider [phone] Encounter Details Date Type Department Care Team ([facility] st Contact Info) Description 02/28/2023 [facility] [address] [place] [address] [place] [id number] Other headache syndrome (Primary Dx) Social History [...] Primary documented in this encounter Care Teams Shank Faker Relationship Specialty [place] [id number] PCP - General 03/17/21 documented as of this encounter
--- OUTSIDE RECORDS SUMMARY | 2025-10-28 22:20 | XMS_ITS | Encounter Summary ---
Author Organization [employer] ([place], [place], [place], [place], [place]) Address [address] [place] [address] Care Team Providers Care Hr Representative Name Role Phone Unavailable Primary Care Provider Unavailabl e Encounter Details Date Type Department Care Team (Late st Contact Info) Description 01/06/2021 Transcribed Document [facility] Family Medicine [facility] [place] [address] ProviderDarrell MD [address] [place] [address] [id number] Social History Tobacco Use Types Packs/Day Years Used Date Smoking Tobacco: Never Assessed Comments Unknown Sex and Gender Information Value Date Recorded Sex Assigned at Not on file Legal Sex Female 6:16 PM CDT Gender Identity Not on file Sexual Orientation Not on file documented as of this encounter Miscellaneous Notes * Cerner Conversion Note - Darrell ProviderMD - 01/06/2021 12:45 PM ANDROID UI DEVELOPER [facility] IntraOp Summary Primary Physician: SEA OLSON MD Finalized Date/Time: 01/06/21 13:06:19 Pt. Name: FERMIN BARR/Sex: 1965 Female Med Rec #: [id number] Physician: SEA OLSON MD Financial #: [id number] Pt. Type: O Room/Bed: END/ Admit/Disch: 01/06/21 11:16:00 - Institution: [facility] - Case Attendance Entry 1 Entry 2 Entry 3 Case Attendee SEA OLSON MD GHANSAH, NANA DADZIE, Mcclintock, Molly, Rn -ANS Role Performed Surgeon/Proceduralist, Anesthesiologist of Irradiated Fuel Handler, First First Record Time In 01/06/21 12:38:00 [...] BURGESS, MONICA ZEPEDA, LATISHA SHELLEY Role Performed Irradiated Fuel Handler, Second Scrub, First FRONT END MANAGER/Nurse Yard Hand Time In 01/06/21 12:38:00 01/06/21 12:38:00 01/06/21 12:38:00 Time Out 01/06/21 13:08:00 01/06/21 13:08:00 01/06/21 13:08:00 Procedure Gastric Biopsy, Gastric Biopsy, Gastric Biopsy, Esophageal Biopsy, Esophageal Biopsy, Esophageal Biopsy, Esophageal Dilatation Esophageal Dilatation Esophageal Dilatation Other Attendee Superficial Wound Closed By: Last Modified By: Moira Jensen Rn Mcclintock, Molly, Moira Sanchez, Lou 01/06/21 13:05:47 01/06/21 13:05:47 01/06/21 13:05:47 [facility] - Case Attendance Audit 01/06/21 13:05:47 Trauma Coordinator: [id number] Modifier: [id number] <+> Time Out 1 <*> Procedure [...] Biopsy, Esophageal Biopsy, Esophageal Dilatation 01/06/21 12:48:41 Trauma Coordinator: [id number] Modifier: [id number] 1 <*> Procedure Colonoscopy, Esophagogastroduodenoscopy, Gastric Biopsy, Esophageal Biopsy 2 <*> Procedure Gastric Biopsy, Esophageal Biopsy 3 <*> Procedure Gastric Biopsy, Esophageal Biopsy 4 <*> Procedure Gastric Biopsy, Esophageal Biopsy 5 <*> Procedure Gastric Biopsy, Esophageal Biopsy 6 <*> Procedure Gastric Biopsy, Esophageal Biopsy 01/06/21 12:45:26 Trauma Coordinator: [id number] Modifier: [id number] 1 <*> Procedure Colonoscopy, Esophagogastroduodenoscopy, Gastric Biopsy 2 <*> Procedure Gastric Biopsy 3 <*> Procedure Gastric Biopsy 4 <*> Procedure Gastric Biopsy 5 <*> Procedure Gastric Biopsy 6 <*> Procedure Gastric Biopsy 01/06/21 12:44:50 Trauma Coordinator: [id number] Modifier: [id number] 1 <*> Procedure Colonoscopy, Esophagogastroduodenoscopy <+> 2 Procedure <+> 3 Procedure <+> 4 Procedure <+> 5 Procedure <+> 6 Procedure 01/06/21 12:41:08 Trauma Coordinator: [id number] Modifier: [id number] <*> Case Attendee LANA HERRMANN MD-ANS 01/06/21 12:40:29 Trauma Coordinator: [id number] Modifier: [id number] 1 <+> Time In 1 <*> Procedure Colonoscopy, Esophagogastroduodenoscopy <+> 2 Time In <+> 3 Time In <+> 4 Time In <+> 5 Time In <+> 6 Time In 01/06/21 12:31:04 Trauma Coordinator: [id number] Modifier: [id number] <+> 2 Case Attendee <+> 2 Role Performed <+> 3 Case Attendee <+> 3 Role Performed <+> 4 Case Attendee <+> 4 Role Performed <+> 5 Case Attendee <+> 5 Role Performed <+> 6 Case Attendee <+> 6 Role Performed [facility] - Case times Entry 1 Patient In Room Time 01/06/21 12:38:00 Out Room Time 01/06/21 13:08:00 Anesthesia Start Time 01/06/21 12:38:00 Stop Time 01/06/21 13:08:00 Surgery / Procedure Times Start Time 01/06/21 12:45:00 Stop Time 01/06/21 13:05:00 Last Modified By: Moira Jensen Rn 01/06/21 13:05:33 [facility] - Case times Audit 01/06/21 13:05:33 Trauma Coordinator: [id number] Modifier: [id number] <+> 1 Out Room Time <+> 1 Stop Time <+> 1 Stop Time 01/06/21 12:47:15 Trauma Coordinator: [id number] Modifier: [id number] <+> 1 Start Time [facility] - Cultures and Spec Summary Entry 1 Cultrures and Specimens Specimen Ordered: Yes Test(s) Routine/Path-Lab Requested/Final Disposition Last Modified By: Moira Jensen Rn 01/06/21 12:47:42 [facility] - Delays Entry 1 Delay Reason Other, No Delay Duration 0 Minute(s) Last Modified By: Moira Jensen Rn 01/06/21 12:31:14 [facility] - Departure from OR Entry 1 Integumentary Assessment Integumentary WDL Assessment WDL Transfer/Handoff Transfer to PACU Phase I Post-op Transport Stretcher/Gurney Via Patient Transport Moira Jensen Rn Accompanied by Last Modified By: Moira Jensen Rn 01/06/21 12:40:40 [facility] - Departure from OR Audit 01/06/21 12:40:40 Trauma Coordinator: [id number] Modifier: [id number] 1 <*> Patient Transport Accompanied by Moira Jensen, Rn 1 <-> Handoff Method Bedside/Face to face [facility] - Endoscopy Details Entry 1 Abdomen Procedure Soft, Non-Tender Assessment Procedure Abdomen 01/06/21 12:38:00 Assessment D/T Radio Frequency Ablation Abdominal Pressure Last Modified By: Moira Jensen Rn 01/06/21 12:38:50 [facility] - Fire Risk Assessment Entry 1 Fire Info Surgical Site or 1- Yes Incision Above the Xyphoid Open O2 Source 1- Yes (Mask or Cannula) Available Ignition 1- Yes (ESU, Laser, Light Source) Fire Risk 3 Assessment Score Fire Score Fire Risk Yes Assessment Complete Fire Risk Moira Jensen, Plastic Surgery Manager Verified By Fire Risk 01/06/21 12:39:00 Assessment Verified Date/Time Fire Risk High Risk Protocol Yes Implemented Standard Fire Yes Safety Precautions Followed Last Modified By: Moira Jensen Rn 01/06/21 12:39:28 [facility] - Fire Risk Assessment Audit 01/06/21 12:39:28 Trauma Coordinator: [id number] Modifier: [id number] <+> 1 Fire Risk Assessment Complete <+> 1 Fire Risk Assessment Verified Date/Time [facility] - General Case Core Oven Tender 1 Case Information OR Endo 03 [facility] Case Level 1 Room Verified Yes Wound Class III - Contaminated Specialty SN Gastroenterology Anesthesia Type General ASA Class 3 Diagnosis Preop Diagnosis dysphagia/screening Postop Same As Preop Yes Postop Diagnosis dysphagia/screening Last Modified By: Moira Jensen Rn 01/06/21 12:39:17 [facility] - General Case Data Audit 01/06/21 12:39:17 Trauma Coordinator: [id number] Modifier: [id number] <+> 1 ASA Class <+> 1 Postop Same As Preop <+> 1 Preop Diagnosis <+> 1 Postop Diagnosis [facility] - Intraoperative Assessment Entry 1 Valid History / Yes Physical in Chart Preoperative Yes Checklist Reviewed/Evaluated Patient is Latex No Sensitive Level of WDL Consciousness (WDL = Alert, Oriented to Person, Place, and Time) Last Modified By: Moira Jensen Rn 01/06/21 12:31:39 [facility] - Intraoperative Equipment Entry 1 Equipment Intraop Monitoring Electrocardiogram Three lead placement (ECG) Electrode Placement Blood Pressure Arm, left upper Location Pulse Oximeter Hand, right Probe Site Antiembolic Devices Scopes Flexible Endoscopes Gastroscope Used Scope Serial N, K Number/Identificatio n Number Photo/Video Documentation Photo Yes Video No Last Modified By: Moira Jensen Rn 01/06/21 12:41:53 [facility] - Intraoperative Equipment Audit 01/06/21 12:41:53 Trauma Coordinator: [id number] Modifier: [id number] 1 <*> Photo Yes 1 <*> Video No 1 <*> Electrocardiogram (ECG) Electrode Three lead placement Placement 1 <*> Blood Pressure Location Arm, left upper 1 <*> Pulse Oximeter Probe Site Hand, right 1 <*> Flexible Endoscopes Used Gastroscope 1 <+> Scope Serial Number/Identification Number [facility] - Patient Positioning Entry 1 Procedure [...] Modified By: Moira Jensen Rn 01/06/21 12:48:41 [facility] - Patient Positioning Audit 01/06/21 12:48:41 Trauma Coordinator: [id number] Modifier: [id number] 1 <*> Procedure Esophagogastroduodenoscopy, Gastric Biopsy, Esophageal Biopsy 01/06/21 12:45:27 Trauma Coordinator: [id number] Modifier: [id number] 1 <*> Procedure Esophagogastroduodenoscopy, Gastric Biopsy 01/06/21 12:44:50 Trauma Coordinator: [id number] Modifier: [id number] 1 <*> Procedure Esophagogastroduodenoscopy [facility] - Sign In Entry 1 Patient, Site, Yes Procedure Identified Surgical Consent Yes Confirmed Surgical Site N/A Marked by person performing procedure Airway Hypothermia Risk No Warming Measures No Taken Last Modified By: Moira Jensen Rn 01/06/21 12:31:56 [facility] - Sign Out Entry 1 RN [...] Modified By: Moira Jensen Rn 01/06/21 13:05:40 [facility] - Surgical Procedures Entry 1 Entry [...] Moira Sanchez, Lou 01/06/21 13:05:42 01/06/21 13:05:42 [facility] - Surgical Procedures Audit 01/06/21 13:05:42 Trauma Coordinator: [id number] Modifier: [id number] <+> 3 Stop <+> 4 Stop <+> 5 Stop 01/06/21 13:05:13 Trauma Coordinator: [id number] Modifier: [id number] 1 <*> Procedure Colonoscopy 1 <*> Start 01/06/21 12:45:00 1 <+> Stop 1 <+> Physician States Cecum Reached 2 <*> Procedure Esophagogastroduodenoscopy 2 <+> Stop 01/06/21 12:48:40 Trauma Coordinator: [id number] Modifier: [id number] <+> 5 Procedure <+> 5 Primary Procedure <+> 5 Primary Surgeon <+> 5 Specialty <+> 5 Start <+> 5 Wound Class <+> 5 Anesthesia Type 01/06/21 12:47:35 Trauma Coordinator: [id number] Modifier: [id number] <+> 1 Start <+> 2 Start <+> 3 Start <+> 4 Start 01/06/21 12:45:25 Trauma Coordinator: [id number] Modifier: [id number] <+> 4 Procedure <+> 4 Primary Procedure <+> 4 Primary Surgeon <+> 4 Specialty <+> 4 Wound Class <+> 4 Anesthesia Type 01/06/21 12:44:49 Trauma Coordinator: [id number] Modifier: [id number] <+> 3 Procedure <+> 3 Primary Procedure <+> 3 Primary Surgeon <+> 3 Specialty <+> 3 Wound Class <+> 3 Anesthesia Type <+> 3 Additional Procedure Description [facility] - Time Out Entry 1 Procedure [...] Modified By: Moira Jensen Rn 01/06/21 12:48:42 [facility] - Time Out Audit 01/06/21 12:48:42 Trauma Coordinator: [id number] Modifier: [id number] 1 <*> Procedure to be Performed Colonoscopy, Esophagogastroduodenoscopy, Gastric Biopsy, Esophageal Biopsy 01/06/21 12:45:27 Trauma Coordinator: [id number] Modifier: [id number] 1 <*> Procedure to be Performed Colonoscopy, Esophagogastroduodenoscopy, Gastric Biopsy 01/06/21 12:44:51 Trauma Coordinator: [id number] Modifier: [id number] 1 <*> Procedure to be Performed Colonoscopy, Esophagogastroduodenoscopy Case Comments <None> Finalized By: Moira Jensen, Rn Document Signatures Signed By: Moira Jensen Rn 01/06/21 13:06 Electronically signed by [facility] Conversion Switch Technician Cerner at 02/18/2023 5:01 PM CDT documented in this encounter Plan of Treatment Not on file documented as of this encounter Visit Diagnoses Not on filedocumented in this encounter
--- NOTE | 2025-10-28 22:51 | XR_ITS ---
PROCEDURE INFORMATION: Exam: XR Chest Exam date and time: 10/28/2025 10:54 PM Age: 60 years old Clinical indication: Dyspnea TECHNIQUE: Imaging protocol: Radiologic exam of the chest. Views: 2 views. COMPARISON: CR XR CHEST 2V 10/26/2025 10:55 AM FINDINGS: Lungs: No focal consolidation. Pleural spaces: No pleural effusion. No pneumothorax. Heart/Mediastinum: The cardiac silhouette is normal in size. The mediastinal and hilar contours are normal. Bones/joints: An ACDF is noted. No osseous abnormalities. Intraperitoneal space: Surgical clips in the right upper quadrant likely secondary to prior cholecystectomy. IMPRESSION: No acute cardiopulmonary findings.
[2025-10-28 23:29] LABS: Hematocrit 36.6 % (37.0-47.0); Hemoglobin 12.1 g/dL (12.2-16.2); Immature Granulocytes % 0.6 %; Mean Corpuscular HGB Conc 33.1 g/dL (31.8-35.4); Mean Corpuscular Hemoglobin 28.1 pg (27.0-31.2); Mean Corpuscular Volume 84.9 fl (81-99); Nucleated Red Blood Cells % 0 %; Platelet Count 243 K/mm3 (142-424); Red Blood Count 4.31 M/mm3 (4.20-5.40); Red Cell Distribution Width-SD 39.7 fL; White Blood Count 6.3 K/mm3 (4.8-10.8)
[2025-10-28 23:37] LABS: Lactate Venous 1.5 mmol/L (0.4-2.0); VBG HCO3 23.4 mmol/L (23-30); VBG PCO2 32.3 mmol/L (35-51); VBG PH 7.48 mmol/L (7.31-7.41); VBG PO2 78.2 mmol/L (28-40)
[2025-10-28 23:43] LABS: Alanine Aminotransferase 24 U/L (12-78); Albumin Level 4.3 g/dl (3.5-5.0); Albumin/Globulin Ratio 1.3 (1.1-1.8); Alkaline Phosphatase 68 U/L (38-126); Anion Gap 13.0 mEq/L (5-15); Aspartate Amino Transferase 35 U/L (14-36); Bilirubin,Total 0.6 mg/dl (0.2-1.3); Blood Urea Nitrogen 13 mg/dl (7-17); Calcium 8.4 mg/dl (8.4-10.2); Carbon Dioxide 24 mmol/L (22.0-30.0); Chloride 102 mmol/L (98-107); Creatinine Clearance Estimated 104 mL/min (50-200); Creatinine,Serum 0.80 mg/dl (0.52-1.04); Estimated Glomerular Filt Rate 74 ml/min (>60); GFR (African American) 89 ML/MIN (>60); Globulin 3.4 g/dL (1.3-3.2); Glucose 109 mg/dl (74-100); Lipase 71 U/L (23-300); Sodium 136 mmol/L (136-145); Total Protein,Serum 7.7 g/dl (6.3-8.2)
[2025-10-28 23:48] LABS: D-Dimer 0.77 ug/mL (0.0-0.5)
[2025-10-28 23:56] LABS: Anisocytosis 1+; Macrocytosis 1+; Microcytosis 1+; Poikilocytosis 1+; Polychromasia 1+; Tear Drop Cells 1+; Total Cells Counted 100; Troponin I < 0.01 ng/ml (0.00-0.034)
[2025-10-28 23:57] LABS: Potassium 3.0 mmoL/L (3.5-5.1)
--- NOTE | 2025-10-29 00:23 | PC.NURSE ---
critical called from MD [email or web address] notified at 0000
[2025-10-29] MEDS: POTASSIUM CHLORIDE 20MEQ/15ML UDC 60 MEQ PO (00:28)
[2025-10-29 00:30] VITALS: BP 144/74; PULSE 87; O2SAT 96
[2025-10-29 00:35] LABS: Magnesium 1.7 mg/dl (1.6-2.3)
[2025-10-29 01:00] VITALS: BP 118/72; PULSE 90; PULSE 92; RESP 16; O2SAT 92; O2SAT 97
--- NOTE | 2025-10-29 01:39 | [facility].EDCP ---
Discharge Plan Disposition Patient Disposition: Home, Self-Care Condition: Good Prescriptions Prescriptions: No Action ipratropium-albuterol 0.5 mg-3 mg(2.5 mg base)/3 mL solution for nebulization inhalation Q6H PRN (Reason: wheezing) budesonide-formoterol [Symbicort] 80-4.5 mcg/actuation HFA aerosol inhaler 2 puff inhalation Q12H Airsupra 90-80 mcg/actuation HFA aerosol inhaler 2 inh inhalation Q6H PRN (Reason: shortness of breath or wheezing) Qty: 10.7 3RF budesonide-formoterol [Breyna] 160-4.5 mcg/actuation HFA aerosol inhaler 2 puff inhalation BID Qty: 10.2 3RF prednisone 20 mg tablet 40 mg PO DAILY 5 Days Qty: 10 0RF Rx Instructions: Take 40mg daily for 5 days Asthma Action Plan - To be used for asthma exacerbation upon doctors advise. fluticasone propionate 50 mcg/actuation spray,suspension 2 spray intranasal DAILY methocarbamol 500 mg tablet 1,000 mg PO PRN meloxicam 15 mg tablet 15 mg PO DAILY diazepam 2 mg tablet 2 mg PO PRN Fasenra 30 mg/mL syringe 30 mg SQ Q8W Qty: 1 4RF Rx Instructions: 30 mg administered once every 4 weeks for the first 3 doses, and then once every 8 weeks thereafter by subcutaneous injection albuterol sulfate 90 mcg/actuation HFA aerosol inhaler 2 puff INHALATION Q6HP PRN (Reason: Shortness Of Breath) fexofenadine [Gilda Allergy] 180 mg tablet 180 mg PO DAILY Qty: 30 0RF epinephrine [EpiPen] 0.3 mg/0.3 mL auto-injector 0.3 mg IM ONCE PRN (Reason: anaphylaxis) Qty: 1 0RF Rx Instructions: seek medical attention if need to administer hrhsblqlgtzvzow-[id number] 2-30-10 mg/5 mL syrup 5 ml PO Q6H PRN (Reason: cold symptoms) 7 Days Qty: 118 0RF baloxavir marboxil 80 mg tablet 80 mg PO ONCE Qty: 1 0RF Referrals Follow up/Referrals: Janes Mason [Primary Care Provider, Medical] - See instructions Activity Restrictions/Add. Instructions Additional Instructions/Restrictions: You were evaluated in the ER and are believed to be appropriate for discharge at this time. Continue taking all home medications as previously prescribed. Make an appointment with your primary care doctor for reevaluation in 2 to 3 days. Return to the ER with any new, worsening, or otherwise concerning symptoms. Clinical Impressions Clinical Impression: Shortness of breath Print Language Print Language: Ethiopian Discharge ED Provider: Alverto Drake HPI <Alverto Drake DO - Last Filed: 10/29/25 01:47> General Chief Complaint: Shortness of Breath/Dyspnea Stated Complaint: SOA Time Seen by Provider: 10/28/25 22:40 Mode of Arrival: Ambulatory Source of Information: Patient Description of Symptoms (Recalled from ER Triage Doc. by RN): Patient presents to ED with complaints of shortness of air that has gotten worse this afternoon. She reports she was seen here 2 days ago and diagnosed with Flu and COPD exacerbation. Patient denies any cough, states it feels like concrete in her upper airway. 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 History of Present Illness HPI narrative: This is a 60-year-old female patient, with past medical history of chronic bronchitis/asthma with resultant COPD, who is presented to the emergency department today for evaluation of shortness of breath. The patient was evaluated in the emergency department on 10/26/2025 for similar symptoms and was diagnosed with influenza A. She was ultimately deemed stable for discharge home. She tells me that she has a longstanding history of multiple episodes of sepsis in response to the rhinovirus infections. She states that she has had multiple asthma exacerbations in the past and that providers can never hear wheezes on examination and her lung exam is always normal despite having an asthma exacerbation. She tells me that this evening she is having a sensation of inability to get a deep breath. She has used her breathing treatments at home multiple times without relief of symptoms. She has not had any lower extremity erythema or pitting edema. No recent surgeries. No recent plane travel. No recent car travel greater than 6 hours. She is not on estrogen or progesterone. She is not having a mops his. She has never been diagnosed with cancer. At this time she does not have overt chest pain Related Data Home Medications ?Medication ?Instructions ?Recorded ?Confirmed fluticasone propionate 50 2 spray intranasal DAILY 10/22/24 10/21/25 mcg/actuation nasal spray,suspension albuterol sulfate 90 mcg/actuation 2 puff inhalation Q6HP PRN 08/16/25 10/21/25 aerosol inhaler Shortness Of Breath diazepam 2 mg tablet 2 mg PO PRN 09/13/25 10/21/25 meloxicam 15 mg tablet 15 mg PO DAILY 09/13/25 10/21/25 methocarbamol 500 mg tablet 1,000 mg PO PRN 09/13/25 10/21/25 budesonide-formoterol HFA 80 2 puff inhalation Q12H 10/21/25 10/21/25 mcg-4.5 mcg/actuation aerosol inhaler (Symbicort) ipratropium 0.5 mg-albuterol 3 mg ml inhalation Q6H PRN wheezing 10/21/25 10/21/25 (2.5 mg base)/3 mL nebulization soln Previous Rx's ?Medication ?Instructions ?Recorded benralizumab 30 mg/mL subcutaneous 30 mg SQ Q8W #1 mL 04/28/25 syringe (Fasenra) epinephrine 0.3 mg/0.3 mL 0.3 mg (0.3 mL) IM ONCE PRN 08/17/25 injection, auto-injector (EpiPen) anaphylaxis #1 ea fexofenadine 180 mg tablet 180 mg PO DAILY #30 tabs 08/17/25 (Gilda Allergy) albuterol 90 mcg-budesonide 80 2 inh inhalation Q6H PRN shortness 10/21/25 mcg/actuation HFA aerosol inhaler of breath or wheezing #10.7 grams (Airsupra) budesonide-formoterol HFA 160 2 puff inhalation BID #10.2 grams 10/21/25 mcg-4.5 mcg/actuation aerosol inhaler (Breyna) prednisone 20 mg tablet 40 mg (2 x 20 mg) PO DAILY 5 days 10/21/25 #10 tabs baloxavir marboxil 80 mg tablet 80 mg PO ONCE #1 tab 10/26/25 fnrtywsphehjzrd-tiiarwgbrnvkshe-GI 5 ml PO Q6H PRN cold symptoms 7 10/26/25 2 mg-30 mg-10 mg/5 mL oral syrup days #118 mL Allergies Allergy/AdvReac Type Severity Reaction Status Date / Time Penicillins Allergy Mild Unknown Verified 10/21/25 09:42 allergy reaction clindamycin Allergy Anaphylaxis Verified 10/28/25 22:23 Sulfa (Sulfonamide Allergy Hives Verified 10/21/25 09:42 Antibiotics) codeine AdvReac Vomiting Verified 10/21/25 09:42 [facility] <Alverto Drake DO - Last Filed: 10/29/25 01:47> [facility] Disclaimer: The information contained in this section may have been updated after the patient was seen, as this information can be updated by other users. Medical History (Updated 10/29/25 @ 02:46 by Alena Van MD) Asthma exacerbation Viral pneumonia Chronic neck pain Bronchitis Shortness of Breath Cough Pneumonia Febrile illness, acute Body aches Acute dyspnea Allergic rhinitis Dyspnea on exertion Abnormal EEG Fibroids Endometriosis Surgical History H/O breast augmentation History of appendectomy H/O nasal septoplasty Hx of cholecystectomy History of dilation and curettage H/O laparoscopy Family History Other Asthma Coronary artery disease Heart attack Social History Smoking Status: Never smoker alcohol intake: former substance use type: denies use current occupational status: other Travel in the last 8 weeks?: None household members: spouse housing: house marital status: caffeine: No Have you lived/traveled outside [place] in past 30 days?: No Contact w/someone who lives/traveled outside US past 30 days?: No Exposure to someone with infectious disease in past 14 days?: No Do you have a fever (greater than 100.4 F or 38 C)?: No Have you tested positive for COVID-19?: No Exposed to someone with COVID-19 in past 14 days?: No Do you have a sore throat?: No Do you have a cough?: No Do you have any weakness?: No Do you have any diarrhea?: No Are you experiencing any unusual bleeding?: No Do you have any muscle aches/pain?: No Do you have any abdominal pain?: No Are you experiencing loss of taste or smell?: No Other Medical History Have you received the Flu Vaccine for this season: No Have you received the Pneumonia Vaccine: No <Alverto Drake DO - Last Filed: 10/29/25 01:47> ROS Obtained: Yes Systems reviewed as appropriate & no additional complaints except as documented Physical Exam <Alverto Drake DO - Last Filed: 10/29/25 01:47> General General appearance: other (See MDM) Respiratory Respiratory exam: Present other (See MDM) Cardiovascular Cardiovascular exam: Present other (See MDM) Neurological Exam Neurological exam: Present other (See MDM) HEART Score <Alverto Drake DO - Last Filed: 10/29/25 01:47> HEART Score HEART Score assessment performed?: Yes History (anamnesis): Slightly suspicious ECG: Normal Age: 45-65 years Risk factors: No known risk factors Troponin: </= normal limit HEART Score: 1 <Alena Van MD - Last Filed: 10/29/25 02:47> HEART Score HEART Score: 1 Critical Care <Alverto Drake DO - Last Filed: 10/29/25 01:47> Critical Care Time Critical Care Time: No Medical Decision Making <Alverto Drake DO - Last Filed: 10/29/25 01:47> Medical Records Medical records reviewed: Yes I reviewed the patient's medical records. Gaib[place] Inquiry Pt receiving controlled substance: No Gabino was queried for this patient: No Vital Signs Vital Signs: 10/28/25 22:04 10/28/25 22:11 10/29/25 00:30 Temperature 98.2 F Temperature Source Oral Pulse Rate 87 Pulse Rate [Right Radial] 105 H Respiratory Rate 16 Blood Pressure 144/74 H Blood Pressure [Right Arm] 132/77 Blood Pressure Mean 90 Blood Pressure Mean [Right Arm] 95 Blood Pressure Source [Right Arm] Automatic Cuff Blood Pressure Position [Right Arm] Supine 02 Sat by Pulse Oximetry 96 96 96 Oxygen Delivery Method Room Air Room Air Room Air 10/29/25 01:00 10/29/25 01:00 Temperature Temperature Source Pulse Rate 92 H 90 Pulse Rate [Right Radial] Respiratory Rate 16 Blood Pressure 118/72 Blood Pressure [Right Arm] Blood Pressure Mean 86 Blood Pressure Mean [Right Arm] Blood Pressure Source [Right Arm] Blood Pressure Position [Right Arm] 02 Sat by Pulse Oximetry 97 92 L Oxygen Delivery Method Room Air Lab Data Labs: Lab Results 10/28/25 23:20: WBC 6.3, RBC 4.31, Hgb 12.1 L, Hct 36.6 L, MCV 84.9, MCH 28.1, MCHC 33.1, RDW 12.8, Plt Count 243, MPV 9.3, Neut % (Auto) 35.0 L, Lymph % (Auto) 51.6 H, [place] % (Auto) 12.3 H, Eos % (Auto) 0.0 L, Baso % (Auto) 0.5, Neut # (Auto) 2.2, Lymph # (Auto) 3.3, [place] # (Auto) 0.8, Eos # (Auto) 0.0, Baso # (Auto) 0.0, Total Counted 100, Neutrophils % (Manual) 36 L, Lymphocytes % (Manual) 43, Atypical Lymphs % 8.0, Monocytes % (Manual) 13 H, Platelet Estimate Normal, RBC Morphology Not Reportable, Polychromasia 1+, Poikilocytosis 1+, Anisocytosis 1+, Microcytosis 1+, Macrocytosis 1+, Tear Drop Cells 1+, D-Dimer 0.77 H, Sodium 136, Potassium 3.0 L, Chloride 102, Carbon Dioxide 24, Anion Gap 13.0, BUN 13, Creatinine 0.80, Estimated Creat Clear 104, Estimated GFR 74, Est GFR ( Amer) 89, Glucose 109 H, Calcium 8.4, Magnesium 1.7, Total Bilirubin 0.6, AST 35, ALT 24, Alkaline Phosphatase 68, Troponin I < 0.01, Total Protein 7.7, Albumin 4.3, Globulin 3.4 H, Albumin/Globulin Ratio 1.3, Lipase 71 10/28/25 23:35: VBG pH 7.48 H, VBG pCO2 32.3 L, VBG pO2 78.2 H, VBG HCO3 23.4, VBG Total CO2 24.4, VBG O2 Saturation 96.2 H, VBG Base Excess -0.1, VBG Lactic Acid 1.5 10/29/25 01:47: Troponin I < 0.01 10/28/25 23:20 10/28/25 23:20 Response Orders (Tests/Meds): ED MEDICATIONS Discontinued Medications Generic Name Dose Route Start Last Admin Trade Name Freq PRN Reason Stop Dose Admin Potassium Chloride 60 meq 10/29/25 00:17 10/29/25 00:28 Potassium Chloride 20meq/15ml Udc PO 10/29/25 00:18 60 meq ONCE ONE Administration ORDERS Category Date Time Status CXR 2 view (NOT portable) [XR chest 2V] Stat Exams 10/28/25 22:51 Completed CBC w/Auto Diff [Complete Blood Count Auto Diff] Stat Lab 10/28/25 23:20 Completed CMP [Comprehensive Metabolic Panel] Stat Lab 10/28/25 23:20 Completed D-Dimer Stat Lab 10/28/25 23:20 Completed Lipase Stat Lab 10/28/25 23:20 Completed Magnesium Stat Lab 10/29/25 00:16 Completed Troponin I Q3H Lab 10/29/25 01:47 Completed Troponin I Q3H Lab 10/29/25 05:00 Ordered Troponin I Stat Lab 10/28/25 23:20 Completed VBG [Venous Blood Gas] Stat RT 10/28/25 23:35 Completed MDM Narrative Medical Decision Narrative: In summary, this is a 60-year-old female patient who is presenting to the emergency department today for evaluation of shortness of breath described as inability to take a deep breath. This is in the setting of a recent diagnosis of influenza A on 10/26/2025. The patient does have a history of asthma as well as sepsis in the past secondary to rhinoviral infection. On initial evaluation of the patient they were resting comfortably in no acute distress and nontoxic in appearance. They are hemodynamically stable, saturating well room air, and are neurologically intact. On physical examination the patient appears very comfortable. She has no evidence of tachypnea, no prolonged expiratory phase, and she has no wheezes rales or rhonchi in her bilateral lung estrada. Heart sounds demonstrate no murmurs. Her abdomen is soft and nontender to palpation. She has no lower extremity erythema or edema. Differential diagnose includes ACS/MT, influenza, pneumonia, electrolyte derangement, acute kidney injury, pulmonary embolism, among others. Workup was initiated with an EKG that was personally interpreted by me and demonstrates normal sinus rhythm at a rate of 97 bpm, normal axis, no OH prolongation, narrow QS, no QTc prolongation. No ST ovation or depression. No overt signs of ischemia or arrhythmia. Hematologic labs were personally interpreted by me and demonstrate no evidence of leukocytosis. No actionable anemia. She is hypokalemic with a potassium of 3. Her magnesium is normal. Hypokalemia may be due to breathing treatment she received at home. She has no evidence of acute kidney injury. Troponin is less than 0.01. Delta troponin is pending. VBG shows a relative alkalosis and no evidence of hypercapnia to suggest an asthma/COPD exacerbation The patient's D-dimer is 0.77 and she is considered low risk by Wells criteria. Her D-dimer is not elevated greater than 1 so by years criteria she does not necessitate further workup for pulmonary embolism with a CT PE study. We have administered 60 mEq of oral potassium chloride to the patient. At this time her delta troponin is pending. This case was handed off to the oncoming physician who will follow-up on second troponin level and disposition the patient appropriately. <Alena Van MD - Last Filed: 10/29/25 02:47> Vital Signs Vital Signs: 10/28/25 22:04 10/28/25 22:11 10/29/25 00:30 Temperature 98.2 F Temperature Source Oral Pulse Rate 87 Pulse Rate [Right Radial] 105 H Respiratory Rate 16 Blood Pressure 144/74 H Blood Pressure [Right Arm] 132/77 Blood Pressure Mean 90 Blood Pressure Mean [Right Arm] 95 Blood Pressure Source [Right Arm] Automatic Cuff Blood Pressure Position [Right Arm] Supine 02 Sat by Pulse Oximetry 96 96 96 Oxygen Delivery Method Room Air Room Air Room Air 10/29/25 01:00 10/29/25 01:00 Temperature Temperature Source Pulse Rate 92 H 90 Pulse Rate [Right Radial] Respiratory Rate 16 Blood Pressure 118/72 Blood Pressure [Right Arm] Blood Pressure Mean 86 Blood Pressure Mean [Right Arm] Blood Pressure Source [Right Arm] Blood Pressure Position [Right Arm] 02 Sat by Pulse Oximetry 97 92 L Oxygen Delivery Method Room Air Lab Data Labs: Lab Results 10/28/25 23:20: WBC 6.3, RBC 4.31, Hgb 12.1 L, Hct 36.6 L, MCV 84.9, MCH 28.1, MCHC 33.1, RDW 12.8, Plt Count 243, MPV 9.3, Neut % (Auto) 35.0 L, Lymph % (Auto) 51.6 H, [place] % (Auto) 12.3 H, Eos % (Auto) 0.0 L, Baso % (Auto) 0.5, Neut # (Auto) 2.2, Lymph # (Auto) 3.3, [place] # (Auto) 0.8, Eos # (Auto) 0.0, Baso # (Auto) 0.0, Total Counted 100, Neutrophils % (Manual) 36 L, Lymphocytes % (Manual) 43, Atypical Lymphs % 8.0, Monocytes % (Manual) 13 H, Platelet Estimate Normal, RBC Morphology Not Reportable, Polychromasia 1+, Poikilocytosis 1+, Anisocytosis 1+, Microcytosis 1+, Macrocytosis 1+, Tear Drop Cells 1+, D-Dimer 0.77 H, Sodium 136, Potassium 3.0 L, Chloride 102, Carbon Dioxide 24, Anion Gap 13.0, BUN 13, Creatinine 0.80, Estimated Creat Clear 104, Estimated GFR 74, Est GFR ( Amer) 89, Glucose 109 H, Calcium 8.4, Magnesium 1.7, Total Bilirubin 0.6, AST 35, ALT 24, Alkaline Phosphatase 68, Troponin I < 0.01, Total Protein 7.7, Albumin 4.3, Globulin 3.4 H, Albumin/Globulin Ratio 1.3, Lipase 71 10/28/25 23:35: VBG pH 7.48 H, VBG pCO2 32.3 L, VBG pO2 78.2 H, VBG HCO3 23.4, VBG Total CO2 24.4, VBG O2 Saturation 96.2 H, VBG Base Excess -0.1, VBG Lactic Acid 1.5 10/29/25 01:47: Troponin I < 0.01 Response Orders (Tests/Meds): ED MEDICATIONS Discontinued Medications Generic Name Dose Route Start Last Admin Trade Name Freq PRN Reason Stop Dose Admin Potassium Chloride 60 meq 10/29/25 00:17 10/29/25 00:28 Potassium Chloride 20meq/15ml Udc PO 10/29/25 00:18 60 meq ONCE ONE Administration ORDERS Category Date Time Status CXR 2 view (NOT portable) [XR chest 2V] Stat Exams 10/28/25 22:51 Completed CBC w/Auto Diff [Complete Blood Count Auto Diff] Stat Lab 10/28/25 23:20 Completed CMP [Comprehensive Metabolic Panel] Stat Lab 10/28/25 23:20 Completed D-Dimer Stat Lab 10/28/25 23:20 Completed Lipase Stat Lab 10/28/25 23:20 Completed Magnesium Stat Lab 10/29/25 00:16 Completed Troponin I Q3H Lab 10/29/25 01:47 Completed Troponin I Q3H Lab 10/29/25 05:00 Ordered Troponin I Stat Lab 10/28/25 23:20 Completed VBG [Venous Blood Gas] Stat RT 10/28/25 23:35 Completed MDM Narrative Medical Decision Narrative: In summary, this is a 60-year-old female patient who is presenting to the emergency department today for evaluation of shortness of breath described as inability to take a deep breath. This is in the setting of a recent diagnosis of influenza A on 10/26/2025. The patient does have a history of asthma as well as sepsis in the past secondary to rhinoviral infection. On initial evaluation of the patient they were resting comfortably in no acute distress and nontoxic in appearance. They are hemodynamically stable, saturating well room air, and are neurologically intact. On physical examination the patient appears very comfortable. She has no evidence of tachypnea, no prolonged expiratory phase, and she has no wheezes rales or rhonchi in her bilateral lung estrada. Heart sounds demonstrate no murmurs. Her abdomen is soft and nontender to palpation. She has no lower extremity erythema or edema. Differential diagnose includes ACS/MT, influenza, pneumonia, electrolyte derangement, acute kidney injury, pulmonary embolism, among others. Workup was initiated with an EKG that was personally interpreted by me and demonstrates normal sinus rhythm at a rate of 97 bpm, normal axis, no OH prolongation, narrow QS, no QTc prolongation. No ST ovation or depression. No overt signs of ischemia or arrhythmia. Hematologic labs were personally interpreted by me and demonstrate no evidence of leukocytosis. No actionable anemia. She is hypokalemic with a potassium of 3. Her magnesium is normal. Hypokalemia may be due to breathing treatment she received at home. She has no evidence of acute kidney injury. Troponin is less than 0.01. Delta troponin is pending. VBG shows a relative alkalosis and no evidence of hypercapnia to suggest an asthma/COPD exacerbation The patient's D-dimer is 0.77 and she is considered low risk by Wells criteria. Her D-dimer is not elevated greater than 1 so by years criteria she does not necessitate further workup for pulmonary embolism with a CT PE study. We have administered 60 mEq of oral potassium chloride to the patient. At this time her delta troponin is pending. This case was handed off to the oncoming physician who will follow-up on second troponin level and disposition the patient appropriately. Van: Upon my assumption of care patient was stable, resting comfortably, no continued symptoms. I agree with the assessment and plan from Dr. Drake. On reassessment she continues to be well-appearing, no exacerbation of symptoms. Resting comfortably. No additional intervention indicated at this time. Repeat troponin also negative at 0.01. I believe patient is appropriate for discharge at this time and she is comfortable with this plan. Patient was given instructions on continued symptomatic monitoring and management, follow-up, and return precautions for the ER. She indicated understanding and the patient was discharged in stable condition.
[2025-10-29 02:22] LABS: Troponin I < 0.01 ng/ml (0.00-0.034)
[2025-10-29 02:46] VITALS: BP 126/77; PULSE 91; RESP 20; TEMP 36.8; O2SAT 96
== END 2025-10-29 02:53 | disposition home or self-care (01) ==
PROVIDERS: Emergency Provider Student in an Organized Health Care Education/Training Program; PCP Family Medicine
DX: R06.02 Shortness of breath (principal); E87.6 Hypokalemia
CPT/HCPCS: 71046; 80053; 82803; 83690; 83735; 84484; 85007; 85025; 85378; 93005; 99284; 99285